=== PATIENT | female | born 1950 | race Caucasian/White ===

== ENCOUNTER → 2020-05-05 11:19 | Outpatient (BNVA) | payer MEDICARE, SELFPAY | PROVIDERS: PCP Internal Medicine; Visit Provider Internal Medicine | DX: J30.9 Allergic rhinitis, unspecified (principal); J44.9 Chronic obstructive pulmonary disease, unspecified; R91.1 Solitary pulmonary nodule | CPT/HCPCS: 99202 ==

== ENCOUNTER 2020-06-20 08:57 | Outpatient (REF) | payer MEDICARE, SELFPAY ==
[2020-06-20 11:19] LABS: MANUAL DIFF FLAG NO
[2020-06-20 11:40] LABS: Basophils Percent Auto 0.4 % (0-2); Eosinophils Absolute Auto 0.2 X10*3/uL (0.0-0.4); Eosinophils Percent Auto 3.1 % (0-4); Hematocrit 36.1 % (37-47); Hemoglobin 11.6 g/dl (12.0-16.0); Imm Gran Abs Auto 0.02 X10*3/uL (0.00-0.03); Imm Gran Pct Auto 0.4 % (0.0-0.4); Lymphocytes Percent Auto 18.7 % (20-40); Mean Corpuscular HGB Conc 32.1 g/dl (31.0-35.0); Mean Corpuscular Hemoglobin 28.6 pg (27.0-33.0); Mean Corpuscular Volume 88.9 fL (80-98); Mean Platelet Volume 10.1 fL (9.4-12.3); Monocytes Absolute Auto 0.3 X10*3/uL (0.1-1.2); Monocytes Percent Auto 5.7 % (2-11); Neutrophils Absolute Auto 3.8 X10*3/uL (2.0-8.3); Neutrophils Percent Auto 71.7 % (45-73); Red Blood Count 4.06 X10*6/uL (4.20-5.50); Red Cell Distribution Width 14.5 % (11.0-16.0); White Blood Count 5.2 X10*3/uL (4.8-10.8)
[2020-06-20 11:55] LABS: Platelet Count 83 X10*3/uL (160-400)
[2020-06-20 12:24] LABS: Alanine Aminotransferase 15 U/L (0-31); Albumin Level 3.6 g/dL (3.5-5.0); Alkaline Phosphatase 87 U/L (39-117); Anion Gap 12 (12-20); Aspartate Amino Transferase 21 U/L (5-31); Bilirubin Total 0.7 mg/dL (0.0-1.0); Blood Urea Nitrogen 26 mg/dL (9-16); Calcium 8.6 mg/dL (8.4-10.2); Carbon Dioxide 26 mmol/L (22-29); Chloride 108 mmol/L (96-108); Cholesterol 180 mg/dL; Estimated Glomerular Filt Rate 55; Glucose Fasting 97 mg/dL (60-99); HDL Cholesterol 67 mg/dL; LDL Cholesterol Calculated 99 mg/dl; Potassium 4.6 mmol/L (3.3-5.1); Sodium 141 mmol/L (135-145); Total Protein 6.1 g/dL (6.5-8.0); Triglycerides 71 mg/dL
== END 2020-06-20 08:58 | disposition home or self-care (01) ==
LOC: HO.HMGCLDS 08:57
PROVIDERS: PCP Internal Medicine; Visit Provider Internal Medicine
DX: I10 Essential (primary) hypertension (principal); J44.9 Chronic obstructive pulmonary disease, unspecified; N60.99 Unspecified benign mammary dysplasia of unspecified breast; K76.6 Portal hypertension
CPT/HCPCS: 36415; 80053; 80061; 85025

== ENCOUNTER 2020-07-09 12:50 | Outpatient (REF) | payer MEDICARE, SELFPAY ==
--- NOTE | 2020-07-09 13:56 | PFT_ITS ---
Forced vital capacity and FEV1 are both moderately reduced. UBO11-81 and MVV are also moderately reduced. Post bronchodilator therapy, there is no significant change. Total lung capacity is slightly decreased. Residual volume normal. Diffusion capacity markedly decreased. Resting O2 saturation is normal. CONCLUSION: Restrictive pulmonary disorder, moderately severe. No significant obstructive airway disorder. No response to bronchodilator therapy. MD DANIA Momin/MODL / [id number]
== END 2020-07-09 12:51 | disposition home or self-care (01) ==
LOC: HO.RESP 12:50
PROVIDERS: PCP Internal Medicine; Visit Provider Internal Medicine
DX: J44.9 Chronic obstructive pulmonary disease, unspecified (principal); R91.1 Solitary pulmonary nodule
CPT/HCPCS: 94060; 94727; 94729; 99212

== ENCOUNTER 2020-11-04 07:53 | Outpatient (REF) | payer MEDICARE, SELFPAY ==
[2020-11-04 11:57] LABS: Hematocrit 34.5 % (37-47); Hemoglobin 11.3 g/dl (12.0-16.0); Mean Corpuscular HGB Conc 32.8 g/dl (31.0-35.0); Mean Corpuscular Hemoglobin 29.6 pg (27.0-33.0); Mean Corpuscular Volume 90.3 fL (80-98); Mean Platelet Volume 9.9 fL (9.4-12.3); Red Blood Count 3.82 X10*6/uL (4.20-5.50); Red Cell Distribution Width 14.6 % (11.0-16.0); White Blood Count 3.4 X10*3/uL (4.8-10.8)
[2020-11-04 12:03] LABS: Platelet Count 82 X10*3/uL (160-400)
[2020-11-04 12:18] LABS: Anion Gap 11 (12-20); Blood Urea Nitrogen 21 mg/dL (9-16); Calcium 8.5 mg/dL (8.4-10.2); Carbon Dioxide 26 mmol/L (22-29); Chloride 109 mmol/L (96-108); Cholesterol 161 mg/dL; Estimated Glomerular Filt Rate > 60; Glucose Fasting 98 mg/dL (60-99); HDL Cholesterol 60 mg/dL; LDL Cholesterol Calculated 89 mg/dl; Potassium 4.4 mmol/L (3.3-5.1); Sodium 142 mmol/L (135-145); Triglycerides 63 mg/dL
[2020-11-04 12:28] LABS: TSH reflex Free T4 3.55 uIU/mL (0.32-4.0)
== END 2020-11-04 07:54 | disposition home or self-care (01) ==
LOC: HO.HMGCLDS 07:53
PROVIDERS: PCP Internal Medicine; Visit Provider Internal Medicine
DX: I10 Essential (primary) hypertension (principal); K76.6 Portal hypertension; N60.99 Unspecified benign mammary dysplasia of unspecified breast
CPT/HCPCS: 36415; 80048; 80061; 84443; 85027

== ENCOUNTER → 2020-11-05 09:22 | Outpatient (BNVA) | payer MEDICARE, SELFPAY | PROVIDERS: PCP Internal Medicine; Visit Provider Internal Medicine | DX: J30.9 Allergic rhinitis, unspecified (principal); J98.4 Other disorders of lung; R91.1 Solitary pulmonary nodule; R05 Cough | CPT/HCPCS: 99212 ==

== ENCOUNTER 2021-02-16 16:12 | Outpatient (REF) | payer MEDICARE, SELFPAY ==
--- NOTE | ~2021-02-16 | XR_ITS ---
EXAMINATION: XR CHEST CLINICAL INFORMATION: Acute upper respiratory infection. COMPARISON: None TECHNIQUE: 2 views of the chest were obtained. FINDINGS: The lungs are fairly well-expanded without acute pneumonic process. Increased bilateral parahilar markings seen but no congestion. No pleural effusion. Heart size is normal. There is dextroscoliosis of dorsal lumbar spine. There are surgical mikal in the right axilla from previous intervention. Asymmetric breast with the right smaller than left likely from previous intervention. No gross bony abnormality. XR/XR chest 2V IMPRESSION: Dextroscoliosis dorsal spine. The lungs are clear. There are surgical mikal in the right axilla from previous intervention.
[2021-02-16 21:08] LABS: Influenza A PCR NEGATIVE (Negative); Influenza B PCR NEGATIVE (Negative); Resp Syncy Virus RNA Qual PCR NEGATIVE (Negative); SARS COV2 PCR INHOUSE NEGATIVE (Negative)
== END 2021-02-16 16:13 | disposition home or self-care (01) ==
LOC: HO.HMGCX 16:12
PROVIDERS: PCP Internal Medicine; Visit Provider Physician Assistant Medical
DX: J06.9 Acute upper respiratory infection, unspecified (principal); Z20.822 Contact with and (suspected) exposure to COVID-19
CPT/HCPCS: 0241U; 36415; 71046

== ENCOUNTER → 2021-05-11 09:08 | Outpatient (BNVA) | payer MEDICARE, SELFPAY | PROVIDERS: PCP Internal Medicine; Visit Provider Internal Medicine | DX: J30.9 Allergic rhinitis, unspecified (principal); J98.4 Other disorders of lung; R05.9 Cough, unspecified | CPT/HCPCS: 99212 ==

== ENCOUNTER 2021-06-17 08:10 | Outpatient (REF) | payer MEDICARE, SELFPAY ==
--- NOTE | ~2021-06-17 | MM_ITS ---
EXAMINATION: BONE DENSITOMETRY CLINICAL INDICATION: Osteopenia. COMPARISON: None (current study represents initial baseline exam). TECHNIQUE: Using a [employer] DXA System (software version: 13.1) manufactured by [employer], dual-energy x-ray absorptiometry was performed of the lumbar spine and left hip. The images are of good technical quality. Summary results are attached. FINDINGS: AP SPINE L1-L4: There is levocurvature lumbar spine and multilevel degenerative changes which may cause over estimation of the lumbar bone mineral density. BMD 0.917 g/cm2, Z-score -1.0, T-score -2.2, osteopenia. LEFT FEMUR, NECK: BMD 0.537 g/cm2, Z-score -2.1, T-score -3.6, osteoporosis. LEFT FEMUR, TOTAL: BMD 0.627 g/cm2, Z-score -1.8, T-score -3.0, osteoporosis. IDENTIFIED RISK FACTORS: Menopause, osteoporosis, renal, secondary osteoporosis, history of fracture (adult), family history (parent hip fracture). HISTORY OF FRACTURE: Ribs. MEDICATIONS: Multivitamin, vitamin D. MM/XR DEXA axial skeleton IMPRESSION: 1. DIAGNOSIS: Osteoporosis based on the lowest T-score value of -3.6 in the femoral neck applying World Health Organization criteria. 2. 10-YEAR FRACTURE RISK PREDICTION, FRAX: According to the guidelines, FRAX calculation should only be performed on patients in the osteopenia bone density category. Therefore, FRAX was not performed on this patient. 3. Treatment Recommendations: NOF guidelines recommend consideration for treatment in postmenopausal women and men age 50 and older presenting with the following: -A hip or vertebral (clinical or morphometric) fracture. -T-score less than or equal to -2.5 at the femoral neck or spine after appropriate evaluation to exclude secondary causes. -Low bone mass at the hip or spine and a 10-year fracture probability by FRAX of greater than or equal to 3% for hip fracture or greater than or equal to 20% for major osteoporotic fracture based on the [place] adapted WHO algorithm. 4. Other Recommendations: All treatment decisions require clinical judgment and consideration of individual patient factors, including patient preferences, comorbidities, previous drug use, risk factors not captured in the FRAX model (e.g. frailty, falls, vitamin D deficiency, increased bone turnover, interval significant decline in bone density) and possible under or overestimation of fracture risk by FRAX. Additional medical evaluation for secondary cause of low bone mineral density may be appropriate. FUTURE SCAN RECOMMENDATION: People with diagnosed cases of osteoporosis or at high risk for fracture should have regular bone mineral density tests. For patients eligible for Medicare, routine testing is allowed once every 2 years. The testing frequency can be increased to one year for patients who have rapidly progressing disease, those who are receiving or discontinuing medical therapy to restore bone mass, or have additional risk factors.
== END 2021-06-17 08:11 | disposition home or self-care (01) ==
LOC: HO.MAMMO 08:10
PROVIDERS: Visit Provider Internal Medicine
DX: Z13.820 Encounter for screening for osteoporosis (principal); M85.88 Other specified disorders of bone density and structure, other site; Z78.0 Asymptomatic menopausal state; Z79.899 Other long term (current) drug therapy
CPT/HCPCS: 77080

== ENCOUNTER 2021-10-12 09:03 | Outpatient (REF) | payer MEDICARE, SELFPAY ==
[2021-10-12 11:36] LABS: Hematocrit 36.1 % (37.0-47.0); Hemoglobin 11.8 g/dl (12.0-16.0); Mean Corpuscular HGB Conc 32.7 g/dl (31.0-35.0); Mean Corpuscular Volume 91.9 fL (80.0-98.0); Mean Platelet Volume 10.7 fL (9.4-12.3); Red Blood Count 3.93 X10*6/uL (4.20-5.50); Red Cell Distribution Width 13.6 % (11.0-16.0); White Blood Count 3.6 X10*3/uL (4.8-10.8)
[2021-10-12 11:41] LABS: Platelet Count 91 X10*3/uL (160-400)
[2021-10-12 11:52] LABS: Alanine Aminotransferase 15 U/L (0-31); Albumin Level 3.7 g/dL (3.5-5.0); Alkaline Phosphatase 93 U/L (39-117); Anion Gap 14 (12-20); Aspartate Amino Transferase 25 U/L (5-31); Blood Urea Nitrogen 16 mg/dL (9-16); Calcium 8.7 mg/dL (8.4-10.2); Carbon Dioxide 24 mmol/L (22-29); Chloride 108 mmol/L (96-108); Cholesterol 179 mg/dL; Estimated Glomerular Filt Rate 57; Glucose Fasting 101 mg/dL (60-99); HDL Cholesterol 59 mg/dL; LDL Cholesterol Calculated 107 mg/dl; Potassium 4.5 mmol/L (3.3-5.1); Sodium 141 mmol/L (135-145); Total Protein 6.3 g/dL (6.5-8.0); Triglycerides 65 mg/dL
[2021-10-12 12:04] LABS: TSH reflex Free T4 2.86 uIU/mL (0.32-4.0); Vitamin D 25-OH Total 44.9 ng/mL (>30)
== END 2021-10-12 09:04 | disposition home or self-care (01) ==
LOC: HO.HMGCLDS 09:03
PROVIDERS: PCP Internal Medicine; Visit Provider Internal Medicine
DX: Z00.00 Encounter for general adult medical examination without abnormal findings (principal); J44.9 Chronic obstructive pulmonary disease, unspecified; K76.6 Portal hypertension
CPT/HCPCS: 36415; 80053; 80061; 82306; 84443; 85027

== ENCOUNTER 2021-11-18 10:23 | Outpatient (REF) | payer MEDICARE, SELFPAY ==
[2021-11-18 14:38] LABS: INTERNATIONAL NORM RATIO 1.1 (0.9-1.1); Prothrombin Time 12.2 SEC (10.0-13.1)
[2021-11-20 14:21] LABS: Alpha Fetoprotein 3.3 ng/mL
== END 2021-11-18 10:24 | disposition home or self-care (01) ==
LOC: HO.HMGCLDS 10:23
PROVIDERS: PCP Internal Medicine; Visit Provider Internal Medicine Gastroenterology
DX: K74.60 Unspecified cirrhosis of liver (principal); Z79.01 Long term (current) use of anticoagulants
CPT/HCPCS: 36415; 82105; 85610

== ENCOUNTER → 2021-12-07 11:15 | Outpatient (BNVA) | payer MEDICARE, SELFPAY | PROVIDERS: PCP Internal Medicine; Visit Provider Internal Medicine | DX: J98.4 Other disorders of lung (principal); J30.9 Allergic rhinitis, unspecified; R91.1 Solitary pulmonary nodule; R05.9 Cough, unspecified | CPT/HCPCS: 99212 ==

== ENCOUNTER → 2022-06-14 10:17 | Outpatient (BNVA) | payer MEDICARE, SELFPAY | PROVIDERS: PCP Internal Medicine; Visit Provider Internal Medicine | DX: J98.4 Other disorders of lung (principal); J30.9 Allergic rhinitis, unspecified; R05.9 Cough, unspecified | CPT/HCPCS: 99212 ==

== ENCOUNTER 2022-10-12 07:44 | Outpatient (REF) | payer MEDICARE, SELFPAY ==
[2022-10-12 11:22] LABS: MANUAL DIFF FLAG NO
[2022-10-12 11:32] LABS: Eosinophils Absolute Auto 0.1 X10*3/uL (0.0-0.4); Eosinophils Percent Auto 4.1 % (0-4); Hemoglobin 11.3 g/dl (12.0-16.0); Lymphocytes Absolute Auto 0.7 X10*3/uL (1.2-4.9); Lymphocytes Percent Auto 20.4 % (20-40); Mean Corpuscular HGB Conc 33.2 g/dl (31.0-35.0); Mean Corpuscular Hemoglobin 30.5 pg (27.0-33.0); Mean Corpuscular Volume 91.9 fL (80.0-98.0); Mean Platelet Volume 10.3 fL (9.4-12.3); Monocytes Absolute Auto 0.2 X10*3/uL (0.1-1.2); Monocytes Percent Auto 5.6 % (2-11); Neutrophils Absolute Auto 2.2 x10*3/uL (2.0-8.3); Neutrophils Percent Auto 69.9 % (45-73); Red Cell Distribution Width 13.8 % (11.0-16.0); White Blood Count 3.2 X10*3/uL (4.8-10.8)
[2022-10-12 11:41] LABS: Platelet Count 84 X10*3/uL (160-400)
[2022-10-12 12:33] LABS: Alanine Aminotransferase 16 U/L (0-31); Albumin Level 3.3 g/dL (3.5-5.0); Alkaline Phosphatase 96 U/L (39-117); Anion Gap 13 (12-20); Aspartate Amino Transferase 26 U/L (5-31); Bilirubin Total 0.6 mg/dL (0.0-1.0); Blood Urea Nitrogen 17 mg/dL (9-16); Calcium 8.8 mg/dL (8.4-10.2); Carbon Dioxide 24 mmol/L (22-29); Chloride 107 mmol/L (96-108); Cholesterol 139 mg/dL; Estimated Glomerular Filt Rate > 60; Glucose Fasting 105 mg/dL (60-99); HDL Cholesterol 50 mg/dL; LDL Cholesterol Calculated 80 mg/dl; Potassium 4.1 mmol/L (3.3-5.1); Sodium 140 mmol/L (135-145); TSH reflex Free T4 3.91 uIU/mL (0.32-4.0); Total Protein 6.3 g/dL (6.5-8.0); Triglycerides 48 mg/dL; Vitamin D 25-OH Total 37.8 ng/mL (>30)
== END 2022-10-12 07:45 | disposition home or self-care (01) ==
LOC: HO.HMGCLDS 07:44
PROVIDERS: PCP Internal Medicine; Visit Provider Internal Medicine
DX: I10 Essential (primary) hypertension (principal); J44.9 Chronic obstructive pulmonary disease, unspecified; M81.0 Age-related osteoporosis without current pathological fracture; E55.9 Vitamin D deficiency, unspecified
CPT/HCPCS: 36415; 80053; 80061; 82306; 84443; 85025

== ENCOUNTER 2022-11-04 12:17 | Outpatient (AMB) | payer MEDICARE, SELFPAY ==
[2022-11-04 12:40] VITALS: BP 130/80; PULSE 67; O2SAT 96; BMI 33.6
--- NOTE | 2022-11-04 12:40 | MHC.PC.OV ---
Vital Signs 11/04/22 12:40 Height 5 ft Weight 172 lb BMI 33.6 BP 130/80 Blood Pressure Location Lt brachial Position Sitting Pulse 67 Pulse Source Pulse Oximeter Pulse Oximetry (%) 96 Oxygen Delivery Method Room Air Intake Visit Reasons: 6 month follow up ( meds ) Intake Note: Pt is here today for 6 months follow up visit. Allergies cefotetan Allergy (Unknown, Verified 11/04/22 12:47) unknown cefuroxime [From Ceftin] Allergy (Unknown, Verified 11/04/22 12:47) Unknown ciprofloxacin [Cipro] Allergy (Unknown, Verified 11/04/22 12:47) unknown latex Allergy (Unknown, Verified 11/04/22 12:47) Unknown moxifloxacin [From Avelox] Allergy (Unknown, Verified 11/04/22 12:47) Unknown prochlorperazine [From Compazine] Allergy (Unknown, Verified 11/04/22 12:47) Unknown alendronate sodium Adverse Reaction (Intermediate, Verified 11/04/22 13:23) Stomach Upset Medication List - Last Reconciled 11/04/22 by Jeanne Killian MD albuterol sulfate 90 mcg/actuation (ProAir HFA) 2 puffs inhalation Q6H PRN 30 days denosumab (Prolia) 60 mg subcut [id number] fluticasone propionate 110 mcg/actuation (Flovent HFA) 1 puff inhalation BID furosemide 20 mg PO DAILY lisinopril 30 mg PO DAILY nystatin 10 mL PO Q6H 7 days omeprazole 40 mg (2 x 20 mg) PO DAILY propranolol 20 mg PO BID sertraline 50 mg PO DAILY Tobacco use date assessed: 11/04/22 Fall risk assessment: No Falls in past year Last assessed Fall Risk: 11/04/22 Dental Screening Dental Screen Date: 11/04/22 Did you have a dental visit in the last 12 months?: Yes Did you have a dental problem in the last 6 months where you did not have access to dental care?: No Was dental information given to patient?: Patient has dentist HPI 6 month follow up ( meds ) HPI Details Patient presents for the follow-up on hypertension, portal hypertension, chronic asthma and osteoporosis. Patient reports having episodes of increased wheezing and coughing for the last few months on and off. She has been using albuterol more than twice a day and Flovent twice a day. Patient could not afford the co-pay for Prolia injection. She took Fosamax for over 5 years but stopped it at least 5 years ago. She reports having episodes of stomach upset while taking Fosamax. She follows up with Urology for bladder CA in remission [facility] Medical History (Updated 11/04/22 @ 13:21 by Jeanne Killian MD) Allergic rhinitis Annual physical exam Aortic valve sclerosis Atypical ductal hyperplasia of breast Bladder carcinoma Breast CA COPD (chronic obstructive pulmonary disease) Cough Depression Essential hypertension Osteoporosis Pneumonia Portal hypertension Pulmonary nodule Restrictive lung disease Thrombocytopenia Surgical History H/O colonoscopy History of esophagogastroduodenoscopy (EGD) History of inguinal hernia repair History of surgery Hx of cholecystectomy Family History Father No problems noted. Mother Colon cancer Sister Breast cancer Social History Housing: House Alcohol intake: current Alcohol intake frequency: holidays/special occasions only Patient Tobacco Use Status: Never used Tobacco e-Cigarette/Vaping Use: Never Used Current occupational status: retired Cognitive needs: No Hearing needs: No Vision needs: Yes Questionnaire Thrive Questionnaire Date Thrive assessed: 04/19/22 AUDIT C Alcohol Use Questionnaire (AUDIT-C) 1. How often do you have a drink containing alcohol?: Never 3. How often do you have six or more drinks on one occasion?: Never Total Score: 0 ELENA-7 AMB Questionnaire ELENA-7 Date ELENA - 7 assessed: 04/19/22 Source: Developed by Drs. Alber Mcelroy, Rula Pantoja, Ranulfo Kirkpatrick and colleagues, with an educational laly from [employer] Review of Systems Const All systems reviewed & are unremarkable except as noted in HPI and below Reports no additional complaints Eyes Reports no additional complaints ENT Reports no additional complaints Card Reports no additional complaints Resp Reports no additional complaints GI Reports no additional complaints Reports no additional complaints Physical exam (Primary Care) Vital Signs: Last Vital Signs Pulse 67 11/04/22 12:40 BP 130/80 11/04/22 12:40 Pulse Ox 96 11/04/22 12:40 Oxygen Delivery Method Room Air 11/04/22 12:40 BMI result Body Mass Index 33.6 Tobacco/Smoking Status: Tobacco use Status Tobacco use date assessed 11/04/22 11/04/22 12:49 Patient Tobacco Use Status Never used Tobacco 11/04/22 12:49 e-Cigarette/Vaping Use Never Used 11/04/22 12:41 Thrive Assessment: Date of Thrive Assessment Date Thrive assessed 04/19/22 11/04/22 12:41 Const General: no acute distress HENMT Head: Yes normal to inspection Throat: Yes posterior oropharynx normal Neck Neck: Yes no lymphadenopathy and Yes supple Resp Effort & Inspection: normal respiratory effort Auscultation: crackles (bases) and diminished lung sounds Cardio Rhythm: regular rhythm Heart sounds: S1 normal heart sound present and S2 normal heart sound present GI Inspection: Yes normal to inspection Palpation (GI): Soft to palpation Percussion: Yes normal to percussion Auscultation: normal bowel sounds Assessment and Plan Assessment & Plan (1) Osteoporosis: Comment: DEXA 07/03, T SCORE -3.8 hip, took Fosamax for 5 years but stopped > 5 years, Fosamax caused stomach upset , Prolia not covered by the insurance Code(s): M81.0 - Age-related osteoporosis without current pathological fracture Plan: Reclast infusion is ordered for 2 years and then repeat DEXA (2) Portal hypertension: Code(s): K76.6 - Portal hypertension Plan: Continue current medications follow-up with GI (3) Essential hypertension: Code(s): I10 - Essential (primary) hypertension Plan: Continue current medications (4) Asthma: Comment: Not controlled on Flovent, changed to Symbicort 160 2 puffs twice a day 11/04/22 Code(s): J45.909 - Unspecified asthma, uncomplicated Plan: Change to Symbicort 160 2 puffs twice a day and use albuterol as needed Orders: Referrals Rheumatology Referral M81.0 - Age-related osteoporosis without current pathological fracture Medications: New zoledronic mwcl-argywdow-jmxih 5 mg/100 mL (Reclast) 1 ea IV ONCE 100 mL 0RF budesonide-formoterol 160-4.5 mcg/actuation (Symbicort) 2 puffs inhalation BID 30.6 grams 3RF Coding Level of Care Code Est Pt Level 4 (59385) Diagnoses Osteoporosis M81.0 Portal hypertension K76.6 Essential hypertension I10 Asthma J45.909
== END 2022-11-04 13:23 | disposition home or self-care (01) ==
PROVIDERS: PCP Internal Medicine; Visit Provider Internal Medicine
DX: M81.0 Age-related osteoporosis without current pathological fracture (principal); K76.6 Portal hypertension; I10 Essential (primary) hypertension; J45.909 Unspecified asthma, uncomplicated
CPT/HCPCS: 99214

== ENCOUNTER 2022-11-04 13:15 | Outpatient (REF) | payer MEDICARE, SELFPAY ==
[2022-11-04 16:11] LABS: INTERNATIONAL NORM RATIO 1.1 (0.9-1.1); Prothrombin Time 12.8 SEC (11.1-13.3)
== END 2022-11-04 13:16 | disposition home or self-care (01) ==
LOC: HO.HMGCLDS 13:15
PROVIDERS: PCP Internal Medicine; Visit Provider Internal Medicine Gastroenterology
DX: K74.60 Unspecified cirrhosis of liver (principal)
CPT/HCPCS: 36415; 85610

== ENCOUNTER 2022-11-16 15:46 | Outpatient (AMB) | payer MEDICARE, SELFPAY ==
[2022-11-16 15:58] VITALS: BP 140/72; PULSE 72; O2SAT 95; BMI 33.2
--- NOTE | 2022-11-16 15:58 | A.OFFVIS_ITS ---
Intake Vital Signs 11/16/22 15:58 11/16/22 16:10 Height 5 ft Weight 170 lb BMI 33.2 33.2 BP 140/72 H Blood Pressure Location Lt brachial Position Sitting Pulse 72 Pulse Source Pulse Oximeter Pulse Oximetry (%) 95 Oxygen Delivery Method Room Air Intake Visit Reasons: COPD Intake Note: pt is here for follow up and states she does get short of breath with some walking, she also stated she had a bad cold, that went away and came back again, her pcp heard wheezing. 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: No Allergies cefotetan Allergy (Unknown, Verified 11/16/22 16:07) unknown cefuroxime [From Ceftin] Allergy (Unknown, Verified 11/16/22 16:07) Unknown ciprofloxacin [Cipro] Allergy (Unknown, Verified 11/16/22 16:07) unknown latex Allergy (Unknown, Verified 11/16/22 16:07) Unknown moxifloxacin [From Avelox] Allergy (Unknown, Verified 11/16/22 16:07) Unknown prochlorperazine [From Compazine] Allergy (Unknown, Verified 11/16/22 16:07) Unknown alendronate sodium Adverse Reaction (Intermediate, Verified 11/16/22 16:07) Stomach Upset Medication List - Last Reconciled 11/16/22 by Dinorah Stewart MD albuterol sulfate 90 mcg/actuation (ProAir HFA) 2 puffs inhalation Q6H PRN 30 days fluticasone propionate 110 mcg/actuation (Flovent HFA) 1 puff inhalation BID furosemide 20 mg PO DAILY lisinopril 30 mg PO DAILY omeprazole 40 mg (2 x 20 mg) PO DAILY propranolol 20 mg PO BID sertraline 50 mg PO DAILY zoledronic ylhv-zcfsonmm-nogup 5 mg/100 mL (Reclast) 1 ea IV ONCE PFSH Medical History Allergic rhinitis Annual physical exam Aortic valve sclerosis Atypical ductal hyperplasia of breast Bladder carcinoma Breast CA COPD (chronic obstructive pulmonary disease) Cough Depression Essential hypertension Osteoporosis Pneumonia Portal hypertension Pulmonary nodule Restrictive lung disease Thrombocytopenia Surgical History H/O colonoscopy History of esophagogastroduodenoscopy (EGD) History of inguinal hernia repair History of surgery Hx of cholecystectomy Family History Father No problems noted. Mother Colon cancer Sister Breast cancer Social History Housing: House Alcohol intake: current Alcohol intake frequency: holidays/special occasions only Patient Tobacco Use Status: Never used Tobacco e-Cigarette/Vaping Use: Never Used Current occupational status: retired Cognitive needs: No Hearing needs: No Vision needs: Yes Physical Exam Vital Signs: Last Vital Signs Pulse 72 11/16/22 15:58 BP 140/72 H 11/16/22 15:58 Pulse Ox 95 11/16/22 15:58 Oxygen Delivery Method Room Air 11/16/22 15:58 BMI result Body Mass Index 33.2 Assessment & Plan Assessment & Plan Medications: New budesonide-formoterol 160-4.5 mcg/actuation (Symbicort) 2 puffs inhalation Q12H 30 days 10.2 grams 3RF asthma/copd Coding Level of Care Code Est Pt Level 3 (82832) Diagnoses
--- NOTE | 2022-11-16 16:07 | MHC.OFFVIS ---
Intake Vital Signs 11/16/22 15:58 11/16/22 16:10 Height 5 ft Weight 170 lb BMI 33.2 33.2 BP 140/72 H Blood Pressure Location Lt brachial Position Sitting Pulse 72 Pulse Source Pulse Oximeter Pulse Oximetry (%) 95 Oxygen Delivery Method Room Air Intake Visit Reasons: COPD Allergies cefotetan Allergy (Unknown, Verified 11/16/22 16:07) unknown cefuroxime [From Ceftin] Allergy (Unknown, Verified 11/16/22 16:07) Unknown ciprofloxacin [Cipro] Allergy (Unknown, Verified 11/16/22 16:07) unknown latex Allergy (Unknown, Verified 11/16/22 16:07) Unknown moxifloxacin [From Avelox] Allergy (Unknown, Verified 11/16/22 16:07) Unknown prochlorperazine [From Compazine] Allergy (Unknown, Verified 11/16/22 16:07) Unknown alendronate sodium Adverse Reaction (Intermediate, Verified 11/16/22 16:07) Stomach Upset Medication List - Last Reconciled 11/16/22 by Dinorah Stewart MD albuterol sulfate 90 mcg/actuation (ProAir HFA) 2 puffs inhalation Q6H PRN 30 days fluticasone propionate 110 mcg/actuation (Flovent HFA) 1 puff inhalation BID furosemide 20 mg PO DAILY lisinopril 30 mg PO DAILY omeprazole 40 mg (2 x 20 mg) PO DAILY propranolol 20 mg PO BID sertraline 50 mg PO DAILY zoledronic qqvo-ldiqgedz-mhbui 5 mg/100 mL (Reclast) 1 ea IV ONCE Do you need a note to return to daycare/school/sports/work: No HPI COPD HPI Details 72 YEARS OLD VERY PLEASANT FEMALE IS HERE AFTER 6 MONTHS FOR FOLLOW-UP VISIT. SHE WAS DOING FAIRLY WELL BUT SINCE ABOUT 4 WEEKS AGO WHEN SHE HAD A BOUT OF COMMON COLD , SHE IS HAVING INCREASED COUGH AND WHEEZING AND BECOMES SHORT OF BREATH ON MINIMAL WALKING. SHE HAS HAD NO FEVER CHILLS OR CHEST PAIN. NO INCREASE IN MUCUS EXPECTORATION. HER CURRENT RESPIRATORY MED INCLUDES FLOVENT-1102 PUFFS B.I.D. AND ALBUTEROL ONLY P.R.N.. LATELY SHE IS USING ALBUTEROL 2 TO 3 TIMES A DAY. SHE ALSO GETS SHORT OF BREATH ON WALKING MORE EASILY. [facility] Medical History Allergic rhinitis Annual physical exam Aortic valve sclerosis Atypical ductal hyperplasia of breast Bladder carcinoma Breast CA COPD (chronic obstructive pulmonary disease) Cough Depression Essential hypertension Osteoporosis Pneumonia Portal hypertension Pulmonary nodule Restrictive lung disease Thrombocytopenia Surgical History H/O colonoscopy History of esophagogastroduodenoscopy (EGD) History of inguinal hernia repair History of surgery Hx of cholecystectomy Family History Father No problems noted. Mother Colon cancer Sister Breast cancer Social History Housing: House Alcohol intake: current Alcohol intake frequency: holidays/special occasions only Patient Tobacco Use Status: Never used Tobacco e-Cigarette/Vaping Use: Never Used Current occupational status: retired Cognitive needs: No Hearing needs: No Vision needs: Yes Review of Systems Const All systems reviewed & are unremarkable except as noted in HPI and below Eyes Reports no additional complaints ENT Reports nasal congestion (Mild intermittent) Card Denies chest pain, Denies irregular heart rhythm and Denies leg edema Resp Reports as per HPI GI Reports heartburn (Controlled with omeprazole) Reports no additional complaints Musc Reports no additional complaints Skin/Breast Reports system reviewed and no additional complaints, except as documented Neuro Reports no additional complaints Psych Reports depression (Mild well controlled) Endo Reports no additional complaints Physical Exam Vital Signs: Last Vital Signs Pulse 72 11/16/22 15:58 BP 140/72 H 11/16/22 15:58 Pulse Ox 95 11/16/22 15:58 Oxygen Delivery Method Room Air 11/16/22 15:58 BMI result Body Mass Index 33.2 Const General: comfortable, no acute distress, alert and awake Orientation/consciousness: patient oriented x3 HEENT Head: Yes normal to inspection General nose exam: No nasal polyps present, No nasal discharge present and Other nasal findings present (No nasal congestion is noted) Face and sinus: Yes sinuses nontender Mouth: oropharynx normal Throat: Yes posterior oropharynx normal Eyes General: appearance normal, both eyes and all related structures Neck Neck: Yes normal visual inspection, Yes no lymphadenopathy, Yes trachea midline and Yes no JVD Thyroid: Thyroid normal Chest Chest palpation & inspection: normal inspection of the chest, normal palpation of entire chest wall and no tenderness Resp Other: Percussion note is resonant, she has good breath sounds on both sides, slightly prolonged expiratory phase. No audible wheezes rhonchi or crepitations. But does get cough when she is trying to take deep breath. Cardio Palpation: normal PMI Rate: regular rate Rhythm: regular rhythm Heart sounds: no gallops and no murmurs Peripheral pulses: Peripheral pulses 2+ throughout GI Palpation (GI): Soft to palpation, nontender, No hepatosplenomegaly present and no masses Auscultation: normal bowel sounds Back/Spine/Pelvis Thoracic/Lumbar Spine: thoracic and lumbar spine normal to inspection Skin General skin exam: no rashes or lesions noted Neuro General: patient oriented x3 and no focal motor deficits Cranial nerves: Yes CN's II-XII intact bilaterally Extrem General: Yes normal to inspection, Yes no clubbing, cyanosis or edema and Yes no calf tenderness Psych Appearance: grossly normal and well kempt Speech and movement: Normal speech and movement present Assessment & Plan Assessment & Plan (1) Allergic rhinitis: Comment: VERY MILD, INTERMITTENT. TX:USE FLONASE TWO SPRAY EACH NOSTRIL ONLY NEEDED OKAY TO USE ZYRTEC OR CLARITIN 10 MG HALF OR 1 TABLET DAILY. Code(s): J30.9 - Allergic rhinitis, unspecified (2) COPD (chronic obstructive pulmonary disease): Comment: She does have mild to moderate ASTHMA/ COPD . Currently seem to have increased symptoms after an upper respiratory infection 3-4 weeks ago. Flovent not controlling the symptoms. TX : DC Flovent Symbicort 160-4.5 2 puffs b.i.d. Albuterol HFA 2 puffs Q 4-6 hours p.r.n. for cough or wheezing. Code(s): J44.9 - Chronic obstructive pulmonary disease, unspecified (3) Restrictive lung disease: Comment: PATIENT WAS EXPLAINED THAT SHE HAS RESTRICTIVE DISORDER, WHICH MAY BE DUE TO BEING OVERWEIGHT, or MILD DEGREE OF INTERSTITIAL LUNG DISEASE. TX: NO TREATMENT NEEDED. BUT SHE SHOULD DO DEEP BREATHING EXERCISES TWICE A DAY DAILY Code(s): J98.4 - Other disorders of lung Medications: New budesonide-formoterol 160-4.5 mcg/actuation (Symbicort) 2 puffs inhalation Q12H 30 days 10.2 grams 3RF asthma/copd Quality Reporting (2019) Adult ([facility] 138//) Body Mass Index: 33.2 Coding Level of Care Code Est Pt Level 3 (07359) Diagnoses Allergic rhinitis J30.9 COPD (chronic obstructive pulmonary disease) J44.9 Restrictive lung disease J98.4
[2022-11-16 16:10] VITALS: BMI 33.2
== END 2022-11-16 16:17 | disposition home or self-care (01) ==
PROVIDERS: PCP Internal Medicine; Visit Provider Internal Medicine
DX: J30.9 Allergic rhinitis, unspecified (principal); J44.9 Chronic obstructive pulmonary disease, unspecified; J98.4 Other disorders of lung
CPT/HCPCS: 99213

== ENCOUNTER → 2022-11-16 15:46 | Outpatient (BNVA) | payer MEDICARE, SELFPAY | PROVIDERS: PCP Internal Medicine; Visit Provider Internal Medicine | DX: J44.9 Chronic obstructive pulmonary disease, unspecified (principal); J30.9 Allergic rhinitis, unspecified; J98.4 Other disorders of lung | CPT/HCPCS: 99212 ==

== ENCOUNTER 2022-12-13 10:14 | Outpatient (AMB) | payer MEDICARE, SELFPAY ==
[2022-12-13 10:36] VITALS: BP 124/80; PULSE 64; O2SAT 96; BMI 33.0
--- NOTE | 2022-12-13 10:36 | MHC.OFFVIS ---
Intake Vital Signs 12/13/22 10:36 Height 5 ft Weight 169 lb BMI 33.0 BP 124/80 Blood Pressure Location Lt brachial Position Sitting Pulse 64 Pulse Source Pulse Oximeter Pulse Oximetry (%) 96 Oxygen Delivery Method Room Air Intake Visit Reasons: Bronchitis Intake Note: pt is here for follow up, just got over covid, still thinks something is going on, some coughing, but coughed all night, Associate Product Manager Required: No Allergies cefotetan Allergy (Unknown, Verified 12/13/22 10:53) unknown cefuroxime [From Ceftin] Allergy (Unknown, Verified 12/13/22 10:53) Unknown ciprofloxacin [Cipro] Allergy (Unknown, Verified 12/13/22 10:53) unknown latex Allergy (Unknown, Verified 12/13/22 10:53) Unknown moxifloxacin [From Avelox] Allergy (Unknown, Verified 12/13/22 10:53) Unknown prochlorperazine [From Compazine] Allergy (Unknown, Verified 12/13/22 10:53) Unknown alendronate sodium Adverse Reaction (Intermediate, Verified 12/13/22 10:53) Stomach Upset Medication List - Last Reconciled 12/13/22 by Dinorah Stewart MD budesonide-formoterol 160-4.5 mcg/actuation (Symbicort) 2 puffs inhalation Q12H 30 days furosemide 20 mg PO DAILY lisinopril 30 mg PO DAILY omeprazole 40 mg (2 x 20 mg) PO DAILY propranolol 20 mg PO BID sertraline 50 mg PO DAILY zoledronic [id number]-[id number]-qmttg 5 mg/100 mL (Reclast) 1 ea IV ONCE Do you need a note to return to daycare/school/sports/work: No HPI Bronchitis HPI Details BONNIE IS HERE FOR FOLLOW-UP. SHE CONTINUED USING FLUTICASONE, AND NOW JUST GOT SYMBICORT , WHICH SHE HAS NOT STARTED USING YET. SHE WAS DOING OKAY BUT DURING LAST WEEK, SUFFERED FROM UPPER RESPIRATORY INFECTION AND TESTED POSITIVE FOR COLD. LUCKILY SHE RECOVERED OKAY, BUT STILL HAS SOME COLD SORES IN THE NOSTRILS, AND MINIMAL DEGREE OF SORE THROAT. COUGHS OFF AND ON AND TENDS TO BRING UP GREENISH PHLEGM IN THE MORNING. SHE HAS NO FEVER OR CHILLS. STILL FEELS WEAK AND APPETITE IS STARTING TO IMPROVE. [facility] Medical History (Updated 12/13/22 @ 11:02 by Dinorah Stewart MD) COVID-19 Osteoporosis Cough Annual physical exam Restrictive lung disease Pulmonary nodule Allergic rhinitis Atypical ductal hyperplasia of breast Pneumonia COPD (chronic obstructive pulmonary disease) Thrombocytopenia Aortic valve sclerosis Breast CA Depression Bladder carcinoma Essential hypertension Portal hypertension Surgical History H/O colonoscopy History of esophagogastroduodenoscopy (EGD) History of surgery History of inguinal hernia repair Hx of cholecystectomy Family History Father No problems noted. Mother Colon cancer Sister Breast cancer Social History Housing: House Alcohol intake: current Alcohol intake frequency: holidays/special occasions only Patient Tobacco Use Status: Never used Tobacco e-Cigarette/Vaping Use: Never Used Current occupational status: retired Cognitive needs: No Hearing needs: No Vision needs: Yes Review of Systems Const All systems reviewed & are unremarkable except as noted in HPI and below Eyes Reports no additional complaints ENT Reports nasal congestion (Mild intermittent) Card Denies chest pain, Denies irregular heart rhythm and Denies leg edema Resp Reports as per HPI GI Reports heartburn (Controlled with omeprazole) Reports no additional complaints Musc Reports no additional complaints Skin/Breast Reports system reviewed and no additional complaints, except as documented Neuro Reports no additional complaints Psych Reports depression (Mild well controlled) Endo Reports no additional complaints Physical Exam Vital Signs: Last Vital Signs Pulse 64 12/13/22 10:36 BP 124/80 12/13/22 10:36 Pulse Ox 96 12/13/22 10:36 Oxygen Delivery Method Room Air 12/13/22 10:36 BMI result Body Mass Index 33.0 Const General: comfortable, no acute distress, alert and awake Orientation/consciousness: patient oriented x3 HEENT Head: Yes normal to inspection General nose exam: No nasal polyps present, No nasal discharge present and Other nasal findings present (HAS MILD NASAL CONGESTION, ALSO HAS A FEW SUPERFICIAL ULCERATED AREAS ) Face and sinus: Yes sinuses nontender Mouth: oropharynx normal Throat: Yes posterior oropharynx normal Eyes General: appearance normal, both eyes and all related structures Neck Neck: Yes normal visual inspection, Yes no lymphadenopathy, Yes trachea midline and Yes no JVD Thyroid: Thyroid normal Chest Chest palpation & inspection: normal inspection of the chest, normal palpation of entire chest wall and no tenderness Resp Other: Percussion note is resonant, she has good breath sounds on both sides, slightly prolonged expiratory phase. No audible wheezes rhonchi or crepitations. Cardio Palpation: normal PMI Rate: regular rate Rhythm: regular rhythm Heart sounds: no gallops and no murmurs Peripheral pulses: Peripheral pulses 2+ throughout GI Palpation (GI): Soft to palpation, nontender, No hepatosplenomegaly present and no masses Auscultation: normal bowel sounds Back/Spine/Pelvis Thoracic/Lumbar Spine: thoracic and lumbar spine normal to inspection Skin General skin exam: no rashes or lesions noted Neuro General: patient oriented x3 and no focal motor deficits Cranial nerves: Yes CN's II-XII intact bilaterally Extrem General: Yes normal to inspection, Yes no clubbing, cyanosis or edema and Yes no calf tenderness Psych Appearance: grossly normal and well kempt Speech and movement: Normal speech and movement present Assessment & Plan Assessment & Plan (1) COVID-19: Comment: LAST WEEK HAD SYMPTOMS OF UPPER RESPIRATORY INFECTION, COVID TEST DONE AT HOME WAS POSITIVE. SHE HAS RECOVERED EXCEPT FOR MILD RESIDUAL NASAL CONGESTION. ADVISED TO KEEP ON USING STEAM INHALATION 3 TIMES A DAY. Code(s): U07.1 - COVID-19 (2) Asthma: Comment: SHE HAS BEEN USING FLOVENT IN THE PAST. WAS PRESCRIBED THE SYMBICORT 160-4.5 2 PUFFS B.I.D., WHICH SHE HAS ACTUALLY GOTTEN JUST A FEW DAYS AGO. TOLD HER NOT TO USE FLOVENT WHILE SHE IS USING SYMBICORT . AND USE PROAIR 2 PUFFS Q 4-6 HOURS ONLY P.R.N.. Code(s): J45.909 - Unspecified asthma, uncomplicated (3) Restrictive lung disease: Comment: PATIENT WAS EXPLAINED THAT SHE HAS RESTRICTIVE DISORDER, WHICH MAY BE DUE TO BEING OVERWEIGHT, or MILD DEGREE OF INTERSTITIAL LUNG DISEASE. TX: NO TREATMENT NEEDED. BUT SHE SHOULD DO DEEP BREATHING EXERCISES TWICE A DAY DAILY Code(s): J98.4 - Other disorders of lung (4) Pulmonary nodule: Comment: IT WAS ACTUALLY A NONSPECIFIC GROUND-GLASS DENSITY IN THE RIGHT UPPER LOBE., FOR WHICH SHE NEEDS F U CT SCAN . SHE SAYS SHE HAS APPOINTMENT TO TO BE SEEN AT [facility], BEFORE THE END OF THE YEAR. AND SHE MAY HAVE REPEAT CT SCAN AT [facility], AND I WILL REVIEW THAT REPORT. Code(s): R91.1 - Solitary pulmonary nodule (5) Allergic rhinitis: Comment: VERY MILD, INTERMITTENT. TX:USE FLONASE TWO SPRAY EACH NOSTRIL ONLY NEEDED OKAY TO USE ZYRTEC OR CLARITIN 10 MG HALF OR 1 TABLET DAILY. Code(s): J30.9 - Allergic rhinitis, unspecified Coding Level of Care Code Est Pt Level 3 (57159) Diagnoses COVID-19 U07.1 Asthma J45.909 Restrictive lung disease J98.4 Pulmonary nodule R91.1 Allergic rhinitis J30.9
== END 2022-12-13 10:55 | disposition home or self-care (01) ==
PROVIDERS: PCP Internal Medicine; Visit Provider Internal Medicine
DX: U07.1 COVID-19 (principal); J45.909 Unspecified asthma, uncomplicated; J98.4 Other disorders of lung; R91.1 Solitary pulmonary nodule; J30.9 Allergic rhinitis, unspecified
CPT/HCPCS: 99213

== ENCOUNTER 2022-12-13 10:14 | Outpatient (REF) | payer MEDICARE, SELFPAY ==
[2022-12-13 12:52] LABS: Blood Urea Nitrogen 13 mg/dL (9-16); Estimated Glomerular Filt Rate > 60
== END 2022-12-13 10:15 | disposition home or self-care (01) ==
LOC: HO.LAB 10:14
PROVIDERS: PCP Internal Medicine; Visit Provider Internal Medicine
DX: I10 Essential (primary) hypertension (principal); U07.1 COVID-19; J45.909 Unspecified asthma, uncomplicated; J98.4 Other disorders of lung; R91.1 Solitary pulmonary nodule
CPT/HCPCS: 36415; 82565; 84520; 99212

== ENCOUNTER 2022-12-17 08:18 | Outpatient (REF) | payer MEDICARE, SELFPAY | END 2022-12-17 08:19 | disposition home or self-care (01) | LOC: HO.MDS 08:18 | PROVIDERS: Visit Provider Internal Medicine | DX: M81.0 Age-related osteoporosis without current pathological fracture (principal) | CPT/HCPCS: 96374; J3489 ==

== ENCOUNTER 2023-02-16 12:07 | Outpatient (AMB) | payer MEDICARE, SELFPAY ==
--- NOTE | 2023-02-16 12:08 | AM.OFFWIN_ITS ---
Intake Vital Signs 02/16/23 12:09 Height 5 ft Weight 75.75 kg BMI 32.6 BP 124/70 Blood Pressure Location Rt brachial Position Sitting Pulse 69 Pulse Source Pulse Oximeter Temp 97.5 F Temp Source Temporal Artery Scan Pulse Oximetry (%) 97 Oxygen Delivery Method Room Air Intake Visit Reasons: EP, cough (masked) Intake Note: pt is here today for cough started had covid in november Patient Tobacco Use Status: Never used Tobacco Allergies cefotetan Allergy (Unknown, Verified 02/16/23 12:09) unknown cefuroxime [From Ceftin] Allergy (Unknown, Verified 02/16/23 12:09) Unknown ciprofloxacin [Cipro] Allergy (Unknown, Verified 02/16/23 12:09) unknown latex Allergy (Unknown, Verified 02/16/23 12:09) Unknown moxifloxacin [From Avelox] Allergy (Unknown, Verified 02/16/23 12:09) Unknown prochlorperazine [From Compazine] Allergy (Unknown, Verified 02/16/23 12:09) Unknown alendronate sodium Adverse Reaction (Intermediate, Verified 02/16/23 12:09) Stomach Upset Do you need a note to return to daycare/school/sports/work: No HPI HPI Comments History of Present Illness Details 1223 This is a 72-year-old female history of COVID in November, COPD, hypertension, portal hypertension, allergic rhinitis, GERD, asthma presenting to the clinic for evaluation of cough that started in November after she was COVID positive and has not improved. Patient tells me this cough is uncomfortable, dry, intermittent. No associated chest pain, shortness of breath, nausea, vomiting, abdominal pain, headache, vision changes, dizziness, weakness. Patient does not wear oxygen at home. No sick contacts. Physical exam faint expiratory wheezing throughout. Concerns for chronic lung disease versus her long COVID versus bronchitis versus viral illness. Unlikely pneumonia, pulmonary embolism, ACS, dissection, acute respiratory distress plan at this time it is will discharge patient home antibiotics, prednisone, albuterol. Educated patient on diagnosis and treatment plan, answered all question, patient verbalizes understanding. At this time patient will be d ischarged home, advised to return with new or worsening symptoms. Educated on worrisome signs and symptoms and when to return. At this time I feel comfortable discharge home. [facility] Medical History COVID-19 Osteoporosis Cough Annual physical exam Restrictive lung disease Pulmonary nodule Allergic rhinitis Atypical ductal hyperplasia of breast Pneumonia COPD (chronic obstructive pulmonary disease) Thrombocytopenia Aortic valve sclerosis Breast CA Depression Bladder carcinoma Essential hypertension Portal hypertension Surgical History H/O colonoscopy History of esophagogastroduodenoscopy (EGD) History of surgery History of inguinal hernia repair Hx of cholecystectomy Family History Father No problems noted. Mother Colon cancer Sister Breast cancer Social History Housing: House Alcohol intake: current Alcohol intake frequency: holidays/special occasions only Patient Tobacco Use Status: Never used Tobacco e-Cigarette/Vaping Use: Never Used Current occupational status: retired Cognitive needs: No Hearing needs: No Vision needs: Yes Review of Systems Const Details: Constitutional : No Weight loss, No Fever, No Chills, No Fatigue, No Malaise ENT/Mouth : No sore throat, No Rhinorrhea Eyes: No Eye Pain, No Swelling, No Redness Cardiovascular : No Chest Pain, No SOB, No Dyspnea on Exertion, No Orthopnea, No Edema, No Palpitations Respiratory : + Cough, No Sputum, No Wheezing Gastrointestinal : No Nausea, No Vomiting, No Diarrhea, No Constipation, No abdominal Pain, No Hematochezia, No Melena Genitourinary : No Dysuria, No Urinary Frequency, No Hematuria, Musculoskeletal : No joint pain, No Myalgias, No Joint Swelling Skin : No Skin Lesions, No rash Neuro : No Weakness, No Numbness, No Dizziness, No Headache Psych : No Anxiety/Panic, No Depression All other systems reviewed and are negative All systems reviewed & are unremarkable except as noted in HPI and below Physical Exam Vital Signs: Last Vital Signs Temp 97.5 F 02/16/23 12:09 Pulse 69 02/16/23 12:09 BP 124/70 02/16/23 12:09 Pulse Ox 97 02/16/23 12:09 Oxygen Delivery Method Room Air 02/16/23 12:09 BMI result Body Mass Index 32.6 vss Appearance: Alert.? Oriented X3.? No acute distress.? Head: Normocephalic, atraumatic, no step-offs or deformities Eyes: Pupils equal, round and reactive to light.? CVS: Normal heart rate and rhythm.? Pulses normal.? Respiratory: No respiratory distress.? Breath sounds faint expiratory wheezing throughout. Abdomen: Soft and nontender.? Skin: Skin warm and dry.? Normal skin color.? Normal skin turgor.? Extremities: No lower extremity edema.? No calf ttp. 5/5 strength to bilateral upper and lower extremities Neuro: Oriented X 3.? No motor deficit.? No sensory deficit. 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 If you were prescribed antibiotics today, it is important that you take your medication to their entirety, do not skip any doses, do not finish them early. Follow-up with your primary care provider this week. Return to the emergency department with new or worsening symptoms. Such as fevers, chills, chest pain, shortness of breath, nausea, vomiting, dizziness, headache, vision changes, lethargy In case of emergency call 911 Medications: New prednisone 40 mg (2 x 20 mg) PO DAILY 10 tabs 0RF 5 days albuterol sulfate 90 mcg/actuation 2 puffs inhalation Q6H PRN 6.7 grams 0RF shortness of breath or wheezing doxycycline hyclate 100 mg PO BID 14 caps 0RF 7 days Coding Level of Care Code Est Pt Level 3 (25471) Diagnoses Cough R05 Long COVID U09.9
[2023-02-16 12:09] VITALS: BP 124/70; PULSE 69; TEMP 36.4; O2SAT 97; BMI 32.6
== END 2023-02-16 13:33 | disposition home or self-care (01) ==
PROVIDERS: PCP Internal Medicine; Visit Provider Physician Assistant
DX: R05.9 Cough, unspecified (principal); U09.9 Post COVID-19 condition, unspecified
CPT/HCPCS: 99213

== ENCOUNTER 2023-03-21 10:10 | Outpatient (AMB) | payer MEDICARE, SELFPAY ==
--- NOTE | 2023-03-21 10:20 | MHC.OFFVIS ---
Intake Vital Signs 03/21/23 10:21 Height 5 ft Weight 169 lb BMI 33.0 BP 140/78 H Blood Pressure Location Lt brachial Position Sitting Pulse 64 Pulse Source Pulse Oximeter Pulse Oximetry (%) 96 Oxygen Delivery Method Room Air Intake Visit Reasons: Bronchitis Intake Note: pt is here for follow up and states she has been wheezing more in morning and in the cold. only a slight shortness of breath. Allergies cefotetan Allergy (Unknown, Verified 03/21/23 10:27) unknown cefuroxime [From Ceftin] Allergy (Unknown, Verified 03/21/23 10:27) Unknown ciprofloxacin [Cipro] Allergy (Unknown, Verified 03/21/23 10:27) unknown latex Allergy (Unknown, Verified 03/21/23 10:27) Unknown moxifloxacin [From Avelox] Allergy (Unknown, Verified 03/21/23 10:27) Unknown prochlorperazine [From Compazine] Allergy (Unknown, Verified 03/21/23 10:27) Unknown alendronate sodium Adverse Reaction (Intermediate, Verified 03/21/23 10:27) Stomach Upset Medication List - Last Reconciled 03/21/23 by Dinorah Stewart MD albuterol sulfate 90 mcg/actuation 2 puffs inhalation Q6H PRN budesonide-formoterol 160-4.5 mcg/actuation (Symbicort) 2 puffs inhalation Q12H 30 days furosemide 20 mg PO DAILY lisinopril 30 mg PO DAILY omeprazole 40 mg (2 x 20 mg) PO DAILY propranolol 20 mg PO BID sertraline 50 mg PO DAILY zoledronic fvlk-ftrlpwur-czjbz 5 mg/100 mL (Reclast) 1 ea IV ONCE Do you need a note to return to daycare/school/sports/work: No HPI Bronchitis HPI Details BONNIE IS 72 YEARS OLD VERY PLEASANT FEMALE WHO IS HERE FOR FOLLOW-UP AFTER 4 MONTHS. SHE HAS BEEN USING THE GENERIC OF SYMBICORT 2 PUFFS B.I.D., AND ALSO ALBUTEROL WHICH SHE HAS TO USE ONCE IN A WHILE. SHE IS DOING WELL EXCEPT FOR HAVING SOME WHEEZING IN THE MORNING HOURS. SHE CAN WALK AROUND IN DO HER DAY-TO-DAY ACTIVITIES WITHOUT MUCH PROBLEM. SHE HAS HAD NO ACUTE RESPIRATORY INFECTION SINCE HER LAST VISIT . [facility] Medical History COVID-19 Osteoporosis Cough Annual physical exam Restrictive lung disease Pulmonary nodule Allergic rhinitis Atypical ductal hyperplasia of breast Pneumonia COPD (chronic obstructive pulmonary disease) Thrombocytopenia Aortic valve sclerosis Breast CA Depression Bladder carcinoma Essential hypertension Portal hypertension Surgical History H/O colonoscopy History of esophagogastroduodenoscopy (EGD) History of surgery History of inguinal hernia repair Hx of cholecystectomy Family History Father No problems noted. Mother Colon cancer Sister Breast cancer Social History Housing: House Alcohol intake: current Alcohol intake frequency: holidays/special occasions only Patient Tobacco Use Status: Never used Tobacco e-Cigarette/Vaping Use: Never Used Current occupational status: retired Cognitive needs: No Hearing needs: No Vision needs: Yes Review of Systems Const All systems reviewed & are unremarkable except as noted in HPI and below Eyes Reports no additional complaints ENT Reports nasal congestion (Mild intermittent) Card Denies chest pain, Denies irregular heart rhythm and Denies leg edema Resp Reports as per HPI GI Reports heartburn (Controlled with omeprazole) Reports no additional complaints Musc Reports no additional complaints Skin/Breast Reports system reviewed and no additional complaints, except as documented Neuro Reports no additional complaints Psych Reports depression (Mild well controlled) Endo Reports no additional complaints Physical Exam Vital Signs: Last Vital Signs Pulse 64 03/21/23 10:21 BP 140/78 H 03/21/23 10:21 Pulse Ox 96 03/21/23 10:21 Oxygen Delivery Method Room Air 03/21/23 10:21 BMI result Body Mass Index 33.0 Const General: comfortable, no acute distress, alert and awake Orientation/consciousness: patient oriented x3 HEENT Head: Yes normal to inspection General nose exam: No nasal polyps present, No nasal discharge present and Other nasal findings present (HAS MILD NASAL CONGESTION, ALSO HAS A FEW SUPERFICIAL ULCERATED AREAS ) Face and sinus: Yes sinuses nontender Mouth: oropharynx normal Throat: Yes posterior oropharynx normal Eyes General: appearance normal, both eyes and all related structures Neck Neck: Yes normal visual inspection, Yes no lymphadenopathy, Yes trachea midline and Yes no JVD Thyroid: Thyroid normal Chest Chest palpation & inspection: normal inspection of the chest, normal palpation of entire chest wall and no tenderness Resp Other: Percussion note is resonant, she has good breath sounds on both sides, slightly prolonged expiratory phase. No audible wheezes rhonchi or crepitations. Cardio Palpation: normal PMI Rate: regular rate Rhythm: regular rhythm Heart sounds: no gallops and no murmurs Peripheral pulses: Peripheral pulses 2+ throughout GI Palpation (GI): Soft to palpation, nontender, No hepatosplenomegaly present and no masses Auscultation: normal bowel sounds Back/Spine/Pelvis Thoracic/Lumbar Spine: thoracic and lumbar spine normal to inspection Skin General skin exam: no rashes or lesions noted Neuro General: patient oriented x3 and no focal motor deficits Cranial nerves: Yes CN's II-XII intact bilaterally Extrem General: Yes normal to inspection, Yes no clubbing, cyanosis or edema and Yes no calf tenderness Psych Appearance: grossly normal and well kempt Speech and movement: Normal speech and movement present Assessment & Plan Assessment & Plan (1) Restrictive lung disease: Comment: PATIENT WAS EXPLAINED THAT SHE HAS RESTRICTIVE DISORDER, WHICH MAY BE DUE TO BEING OVERWEIGHT, or MILD DEGREE OF INTERSTITIAL LUNG DISEASE. Code(s): J98.4 - Other disorders of lung Plan: TX: SHE SHOULD DO DEEP BREATHING EXERCISES THREE TIMES A DAY DAILY USE THE INCENTIVE SPIROMETERY (2) Pulmonary nodule: Comment: IT WAS ACTUALLY A NONSPECIFIC GROUND-GLASS DENSITY IN THE RIGHT UPPER LOBE., FOR WHICH SHE NEEDS F U CT SCAN . SHE SAYS SHE HAS APPOINTMENT TO TO BE SEEN AT [facility],NEXT WEEK. AND SHE MAY HAVE REPEAT CT SCAN AT [facility], AND I WILL REVIEW THAT REPORT. Code(s): R91.1 - Solitary pulmonary nodule Plan: ABOVE (3) Allergic rhinitis: Comment: VERY MILD, INTERMITTENT. Code(s): J30.9 - Allergic rhinitis, unspecified Plan: TX:USE FLONASE TWO SPRAY EACH NOSTRIL ONLY NEEDED OKAY TO USE ZYRTEC OR CLARITIN 10 MG HALF OR 1 TABLET DAILY. (4) COPD (chronic obstructive pulmonary disease): Comment: She does have mild to moderate ASTHMA/ COPD . It is relatively stable Code(s): J44.9 - Chronic obstructive pulmonary disease, unspecified Plan: Continue to use : Symbicort 160-4.5 2 puffs b.i.d. Albuterol HFA 2 puffs Q 4-6 hours p.r.n. for cough or wheezing. Medications: Changed From albuterol sulfate 90 mcg/actuation 2 puffs inhalation Q6H PRN 6.7 grams 0RF shortness of breath or wheezing To albuterol sulfate 90 mcg/actuation 2 puffs inhalation Q6H PRN 8.5 grams 3RF shortness of breath or wheezing 30 days Coding Level of Care Code Est Pt Level 3 (11563) Diagnoses Restrictive lung disease J98.4 Pulmonary nodule R91.1 Allergic rhinitis J30.9 COPD (chronic obstructive pulmonary disease) J44.9
[2023-03-21 10:21] VITALS: BP 140/78; PULSE 64; O2SAT 96; BMI 33.0
== END 2023-03-21 10:35 | disposition home or self-care (01) ==
PROVIDERS: PCP Internal Medicine; Visit Provider Internal Medicine
DX: J98.4 Other disorders of lung (principal); R91.1 Solitary pulmonary nodule; J30.9 Allergic rhinitis, unspecified; J44.9 Chronic obstructive pulmonary disease, unspecified
CPT/HCPCS: 99213

== ENCOUNTER → 2023-03-21 10:10 | Outpatient (BNVA) | payer MEDICARE, SELFPAY | PROVIDERS: PCP Internal Medicine; Visit Provider Internal Medicine | DX: J98.4 Other disorders of lung (principal); J44.9 Chronic obstructive pulmonary disease, unspecified; J30.9 Allergic rhinitis, unspecified; R91.1 Solitary pulmonary nodule | CPT/HCPCS: 99212 ==

== ENCOUNTER 2023-04-25 14:43 | Outpatient (AMB) | payer MEDICARE, SELFPAY ==
[2023-04-25 15:27] VITALS: BP 160/78; PULSE 63; TEMP 36.7; O2SAT 96; BMI 32.6
--- NOTE | 2023-04-25 15:27 | MHC.OFFWIV ---
Intake Vital Signs 04/25/23 15:27 Height 5 ft Weight 167 lb BMI 32.6 BP 160/78 H Blood Pressure Location Lt brachial Position Sitting Pulse 63 Temp 98.1 F Temp Source Temporal Artery Scan Pulse Oximetry (%) 96 Oxygen Delivery Method Room Air Intake Visit Reasons: EST/cough since november(lobby) Intake Note: pt is here today for cough started november Patient Tobacco Use Status: Never used Tobacco Allergies cefotetan Allergy (Unknown, Verified 04/25/23 15:29) unknown cefuroxime [From Ceftin] Allergy (Unknown, Verified 04/25/23 15:) Unknown ciprofloxacin [Cipro] Allergy (Unknown, Verified 04/25/23 15:) unknown latex Allergy (Unknown, Verified 04/25/23:) Unknown moxifloxacin [From Avelox] Allergy (Unknown, Verified 04/25/23:) Unknown prochlorperazine [From Compazine] Allergy (Unknown, Verified 04/25/23 15:) Unknown alendronate sodium Adverse Reaction (Intermediate, Verified 04/25/23 15:) Stomach Upset Do you need a note to return to daycare/school/sports/work: No HPI HPI Comments History of Present Illness Details 72-year-old female presents today complaining of intermittent cough for the last 6 months. She states that it recurs with nasal congestion sinus pain and pressure and dental pain and a maxillary sinus. She denies fever chills sweats myalgias. [facility] Medical History COVID-19 Osteoporosis Cough Annual physical exam Restrictive lung disease Pulmonary nodule Allergic rhinitis Atypical ductal hyperplasia of breast Pneumonia COPD (chronic obstructive pulmonary disease) Thrombocytopenia Aortic valve sclerosis Breast CA Depression Bladder carcinoma Essential hypertension Portal hypertension Surgical History H/O colonoscopy History of esophagogastroduodenoscopy (EGD) History of surgery History of inguinal hernia repair Hx of cholecystectomy Family History Father No problems noted. Mother Colon cancer Sister Breast cancer Social History Housing: House Alcohol intake: current Alcohol intake frequency: holidays/special occasions only Patient Tobacco Use Status: Never used Tobacco e-Cigarette/Vaping Use: Never Used Current occupational status: retired Cognitive needs: No Hearing needs: No Vision needs: Yes Review of Systems Const Reports headache(s) ENT Reports headache(s), Reports nasal congestion, Reports nasal discharge, Reports sinus pain and Reports sinus pressure Resp Reports chest congestion and Reports cough Neuro Reports headache(s) Physical Exam Vital Signs: Last Vital Signs Temp 98.1 F 04/25/23 15:27 Pulse 63 04/25/23 15:27 BP 160/78 H 04/25/23 15:27 Pulse Ox 96 04/25/23 15:27 Oxygen Delivery Method Room Air 04/25/23 15:27 BMI result Body Mass Index 32.6 HEENT Head: Yes normal to inspection, Yes normocephalic and Yes atraumatic Ears: hearing grossly normal bilaterally, external ears normal, TM's normal bilaterally, TM normal on the right, TM normal on the left and EAC's normal General nose exam: Normal external nose present and No nasal discharge present Face and sinus: Yes sinus tenderness Mouth: Normal oral and palatal mucosa present, Normal salivary glands and ducts present and oropharynx normal Throat: Yes tonsils normal Eyes General: appearance normal, both eyes and all related structures Resp Effort & Inspection: normal respiratory effort and able to speak in complete sentences Auscultation: clear to auscultation bilaterally Cardio Rate: regular rate Rhythm: regular rhythm Heart sounds: S1 normal heart sound present and S2 normal heart sound present Assessment & Plan Assessment & Plan (1) Sinusitis: Code(s): J32.9 - Chronic sinusitis, unspecified Qualifiers: Chronicity: chronic Sinusitis location: maxillary Qualified Code(s): J32.0 - Chronic maxillary sinusitis Plan: see plan Plan USe meds as prescribed. F/U with PCP as needed. Medications: New doxycycline hyclate 100 mg PO BID 7 days 14 caps 0RF albuterol sulfate 90 mcg/actuation 2 inhalations inhalation Q8H PRN 8.5 grams 0RF shortness of breath or wheezing Coding Level of Care Code Est Pt Level 3 (94949) Diagnoses Chronic maxillary sinusitis J32.0 Chronicity: chronic Sinusitis location: maxillary Time Spent (min) 20
== END 2023-04-25 16:19 | disposition home or self-care (01) ==
PROVIDERS: PCP Internal Medicine; Visit Provider Physician Assistant Medical
DX: J32.0 Chronic maxillary sinusitis (principal)
CPT/HCPCS: 99214

== ENCOUNTER 2023-06-23 11:05 | Outpatient (AMB) | payer MEDICARE, SELFPAY ==
[2023-06-23 11:10] VITALS: BP 120/76; PULSE 64; TEMP 36.6; O2SAT 96; BMI 33.2
--- NOTE | 2023-06-23 11:10 | AM.OFFWIN_ITS ---
Intake Vital Signs 06/23/23 11:10 Height 5 ft Weight 170 lb BMI 33.2 BP 120/76 Blood Pressure Location Lt brachial Position Sitting Pulse 64 Pulse Source Pulse Oximeter Temp 97.9 F Temp Source Temporal Artery Scan Pulse Oximetry (%) 96 Oxygen Delivery Method Room Air Intake Visit Reasons: EP cough, chills, ache (masked) Intake Note: pt is here today for cough chills aches started tuesday Patient Tobacco Use Status: Never used Tobacco Allergies cefotetan Allergy (Unknown, Verified 06/23/23 11:13) unknown cefuroxime [From Ceftin] Allergy (Unknown, Verified 06/23/23 11:13) Unknown ciprofloxacin [Cipro] Allergy (Unknown, Verified 06/23/23 11:13) unknown latex Allergy (Unknown, Verified 06/23/23 11:13) Unknown moxifloxacin [From Avelox] Allergy (Unknown, Verified 06/23/23 11:13) Unknown prochlorperazine [From Compazine] Allergy (Unknown, Verified 06/23/23 11:13) Unknown alendronate sodium Adverse Reaction (Intermediate, Verified 06/23/23 11:13) Stomach Upset Do you need a note to return to daycare/school/sports/work: No HPI HPI Comments History of Present Illness Details 72 y/o female patient who presents to [facility] in clinic with c/o URI symptoms that started Tuesday. [facility] Medical History COVID-19 Osteoporosis Cough Annual physical exam Restrictive lung disease Pulmonary nodule Allergic rhinitis Atypical ductal hyperplasia of breast Pneumonia COPD (chronic obstructive pulmonary disease) Thrombocytopenia Aortic valve sclerosis Breast CA Depression Bladder carcinoma Essential hypertension Portal hypertension Surgical History H/O colonoscopy History of esophagogastroduodenoscopy (EGD) History of surgery History of inguinal hernia repair Hx of cholecystectomy Family History Father No problems noted. Mother Colon cancer Sister Breast cancer Social History Housing: House Alcohol intake: current Alcohol intake frequency: holidays/special occasions only Patient Tobacco Use Status: Never used Tobacco e-Cigarette/Vaping Use: Never Used Current occupational status: retired Cognitive needs: No Hearing needs: No Vision needs: Yes Review of Systems Const All systems reviewed & are unremarkable except as noted in HPI and below Physical Exam Vital Signs: Last Vital Signs Temp 97.9 F 06/23/23 11:10 Pulse 64 06/23/23 11:10 BP 120/76 06/23/23 11:10 Pulse Ox 96 06/23/23 11:10 Oxygen Delivery Method Room Air 06/23/23 11:10 BMI result Body Mass Index 33.2 Const General: comfortable and no acute distress Orientation/consciousness: patient oriented x3 HEENT Head: Yes normocephalic Ears: external ears normal, TM normal on the right and TM abnormal bulging on the left, erythematous on the left and with fluid behind the TM on the left General nose exam: Abnormal mucous membranes and turbinates present boggy and erythematous Face and sinus: Yes sinuses nontender Mouth: moist mucous membranes Throat: Yes posterior oropharynx normal Neuro General: patient oriented x3 Assessment & Plan Assessment & Plan (1) Upper respiratory tract infection: Code(s): J06.9 - Acute upper respiratory infection, unspecified Qualifiers: URI type: unspecified viral URI Qualified Code(s): J06.9 - Acute upper respiratory infection, unspecified Plan: - OTC cold remedies - Acetaminophen for pain relief - SARs (2) Otitis media: Code(s): H66.90 - Otitis media, unspecified, unspecified ear Qualifiers: Otitis media type: unspecified Laterality: left Qualified Code(s): H66.92 - Otitis media, unspecified, left ear Plan: Take medication as prescribed Acetaminophen for pain relief. Orders: Orders SARS-CoV2/FLU/RSV Today J06.9 - Acute upper respiratory infection, unspecified Medications: New okicpmeg-zoveozvgm-QK 3.5-10,000-1 mg/mL-unit/mL-% 4 drps otic (ear) left Q8H 5 days 10 mL 0RF H66.92 - Otitis media, unspecified, left ear Coding Level of Care Code Est Pt Level 3 (05351) Diagnoses Viral upper respiratory tract infection J06.9 URI type: unspecified viral URI Left otitis media, unspecified otitis media type H66.92 Otitis media type: unspecified Laterality: left Time Spent (min) 15
== END 2023-06-23 11:31 | disposition home or self-care (01) ==
PROVIDERS: PCP Internal Medicine; Visit Provider Nurse Practitioner Family
DX: J06.9 Acute upper respiratory infection, unspecified (principal); H66.92 Otitis media, unspecified, left ear
CPT/HCPCS: 99213

== ENCOUNTER 2023-06-23 11:27 | Outpatient (REF) | payer MEDICARE, SELFPAY ==
[2023-06-23 14:25] LABS: Influenza A PCR NEGATIVE (Negative); Influenza B PCR NEGATIVE (Negative); Resp Syncy Virus RNA Qual PCR NEGATIVE (Negative); SARS COV2 PCR INHOUSE NEGATIVE (Negative)
== END 2023-06-23 11:28 | disposition home or self-care (01) ==
LOC: HO.LAB 11:27
PROVIDERS: Visit Provider Nurse Practitioner Family
DX: J06.9 Acute upper respiratory infection, unspecified (principal)
CPT/HCPCS: 0241U

== ENCOUNTER 2023-06-30 07:58 | Outpatient (AMB) | payer MEDICARE, SELFPAY ==
[2023-06-30 08:00] VITALS: BP 110/68; PULSE 59; O2SAT 96; BMI 32.4
--- NOTE | 2023-06-30 08:00 | A.OFFPC_ITS ---
Vital Signs 06/30/23 08:00 Height 5 ft Weight 166 lb BMI 32.4 BP 110/68 Blood Pressure Location Lt brachial Position Sitting Pulse 59 Pulse Source Pulse Oximeter Pulse Oximetry (%) 96 Oxygen Delivery Method Room Air Intake Visit Reasons: 6 Month F/U Intake Note: Pt is here today for 6 months follow up visit. Pt is fasting today. Allergies cefotetan Allergy (Unknown, Verified 06/30/23 08:02) unknown cefuroxime [From Ceftin] Allergy (Unknown, Verified 06/30/23 08:02) Unknown ciprofloxacin [Cipro] Allergy (Unknown, Verified 06/30/23 08:02) unknown latex Allergy (Unknown, Verified 06/30/23 08:02) Unknown moxifloxacin [From Avelox] Allergy (Unknown, Verified 06/30/23 08:02) Unknown prochlorperazine [From Compazine] Allergy (Unknown, Verified 06/30/23 08:02) Unknown alendronate sodium Adverse Reaction (Intermediate, Verified 06/30/23 08:02) Stomach Upset Medication List - Last Reconciled 06/30/23 by Jeanne Killian MD albuterol sulfate 90 mcg/actuation 2 inhalations inhalation Q8H PRN albuterol sulfate 90 mcg/actuation 2 puffs inhalation Q6H PRN 30 days budesonide-formoterol 160-4.5 mcg/actuation (Symbicort) 2 puffs inhalation Q12H 30 days furosemide 20 mg PO DAILY lisinopril 30 mg PO DAILY nxpjldvf-wzarlufof-WM 3.5-10,000-1 mg/mL-unit/mL-% 4 drps otic (ear) left Q8H 5 days omeprazole 40 mg (2 x 20 mg) PO DAILY propranolol 20 mg PO BID sertraline 50 mg PO DAILY Tobacco use date assessed: 06/30/23 Fall risk assessment: No Falls in past year Last assessed Fall Risk: 06/30/23 Dental Screening Dental Screen Date: 06/30/23 Did you have a dental visit in the last 12 months?: Yes Did you have a dental problem in the last 6 months where you did not have access to dental care?: No Was dental information given to patient?: Patient has dentist HPI 6 Month F/U HPI0 Details Patient presents for the follow-up of hypertension COPD/restrictive lung disease, portal hypertension. Patient reports intermittent dyspnea on exertion no chest pain or palpitations. She reports breathing improved on Symbicort and follows up with storage architect for restrictive lung disease and lung nodule monitored by serial CT [facility], [facility] Medical History (Updated 06/30/23 @ 08:54 by Jeanne Killian MD) Bladder carcinoma Osteoporosis Annual physical exam Restrictive lung disease Pulmonary nodule Allergic rhinitis Atypical ductal hyperplasia of breast COPD (chronic obstructive pulmonary disease) Thrombocytopenia Aortic valve sclerosis Breast CA Depression Essential hypertension Portal hypertension Surgical History H/O colonoscopy History of esophagogastroduodenoscopy (EGD) History of surgery History of inguinal hernia repair Hx of cholecystectomy Family History Father No problems noted. Mother Colon cancer Sister Breast cancer Social History Housing: House Alcohol intake: current Alcohol intake frequency: holidays/special occasions only Patient Tobacco Use Status: Never used Tobacco e-Cigarette/Vaping Use: Never Used service: No Current occupational status: retired Cognitive needs: No Hearing needs: No Vision needs: Yes Questionnaire PHQ-9 Over the last 2 weeks, how often have you been bothered by any of the following problems? 1. Little interest or pleasure in doing things: not at all 2. Feeling down, depressed, or hopeless: not at all 3. Trouble falling or staying asleep, or sleeping too much: not at all 4. Feeling tired or having little energy: not at all 5. Poor appetite or overeating: not at all 6. Feeling bad about yourself - or that you are a failure or have let yourself or your family down: not at all 7. Trouble concentrating on things, such as reading the newspaper or watching television: not at all 8. Moving or speaking so slowly that other people could have noticed. Or the opposite - being so fidgety or restless that you have been moving around a lot more than usual: not at all 9. Thoughts that you would be better off or of hurting yourself in some way: not at all Total score: 0 Depression Screening Interpretation: Negative Depression Screening Done: Yes Source: Developed by Drs. Alber Mcelroy, Rula Pantoja, Ranulfo Kirkpatrick and colleagues, with an educational laly from [employer]. Thrive Questionnaire Date Thrive assessed: 06/30/23 I am a: Patient What is your living situation today?: I have a steady place to live Within the past 12 months, did the food you bought not last and you didn't have the money to get more?: Sometimes True Within the past 12 months, did you worry whether your food would run out before you got money to buy more?: Never true Do you have trouble paying for medicines?: Yes Do you have trouble getting transportation to medical appointments?: No Do you have trouble paying your heating and electricity bill?: No Do you have trouble taking care of your child, family member or friend?: No Do you have trouble with day-to-day activities such as bathing, preparing meals, shopping, managing finances, etc.?: No Are you currently unemployed and looking for a job?: Yes Are you interested in more education?: No Please select the resources that you would like help with: Paying for medicine and Job search/training THRIVE Score: 1 AUDIT C Alcohol Use Questionnaire (AUDIT-C) 1. How often do you have a drink containing alcohol?: Never 3. How often do you have six or more drinks on one occasion?: Never Total Score: 0 ELENA-7 AMB Questionnaire ELENA-7 Date ELENA - 7 assessed: 06/30/23 Feeling nervous, anxious, or on edge: 0 = Not at all Not being able to stop or control worryin = Not at all Worrying too much about different things: 0 = Not at all Trouble relaxin = Nearly every day Being so restless that it is hard to sit still: 0 = Not at all Becoming easily annoyed or irritable: 0 = Not at all Feeling afraid as if something awful might happen: 0 = Not at all Total ELENA-7 score (0-4 normal; 5-9 mild; 10-14 moderate; 15-21 severe): 3 Source: Developed by Drs. Alber Mcelroy, Rula Pantoja, Ranulfo Kirkpatrick and colleagues, with an educational laly from [employer]. Review of Systems Const All systems reviewed & are unremarkable except as noted in HPI and below ENT Reports no additional complaints Card Reports no additional complaints Resp Reports no additional complaints GI Reports no additional complaints Reports no additional complaints Physical exam (Primary Care) Vital Signs: Last Vital Signs Pulse 59 06/30/23 08:00 BP 110/68 06/30/23 08:00 Pulse Ox 96 06/30/23 08:00 Oxygen Delivery Method Room Air 06/30/23 08:00 BMI result Body Mass Index 32.4 Tobacco/Smoking Status: Tobacco use Status Tobacco use date assessed 06/30/23 06/30/23 08:06 Patient Tobacco Use Status Never used Tobacco 06/30/23 08:06 e-Cigarette/Vaping Use Never Used 06/30/23 08:06 Depression Screening Interpretation: Negative Thrive Assessment: Date of Thrive Assessment Date Thrive assessed 04/19/22 06/30/23 08:06 Const General: no acute distress HENMT Head: Yes normal to inspection Eyes General: appearance normal, both eyes and all related structures Neck Neck: Yes supple Resp Effort & Inspection: normal respiratory effort Auscultation: crackles bilateral and diffuse and diminished lung sounds Cardio Rhythm: regular rhythm Heart sounds: S1 normal heart sound present, S2 normal heart sound present and Murmur heart sound present systolic II/ GI Inspection: Yes normal to inspection Palpation (GI): Soft to palpation Percussion: Yes normal to percussion Auscultation: normal bowel sounds Assessment and Plan Assessment & Plan (1) Essential hypertension: Code(s): I10 - Essential (primary) hypertension Plan: Continue current medications (2) COPD (chronic obstructive pulmonary disease): Comment: She does have mild to moderate ASTHMA/ COPD . It is relatively stable Code(s): J44.9 - Chronic obstructive pulmonary disease, unspecified Plan: Continue Symbicort (3) Vitamin D deficiency: Code(s): E55.9 - Vitamin D deficiency, unspecified Plan: Check vitamin-D level (4) Anemia: Code(s): D64.9 - Anemia, unspecified Plan: Check CBC and iron studies (5) Osteoporosis: Comment: DEXA 07/03, T SCORE -3.8 hip, took Fosamax for 5 years but stopped > 5 years, Fosamax caused stomach upset , Prolia not covered by the insurance, 1st Reclast inf 05/07 Code(s): M81.0 - Age-related osteoporosis without current pathological fracture Plan: Continue vitamin-D and Reclast infusion annually (6) Portal hypertension: Comment: Follow-up with GI with serial EGD Code(s): K76.6 - Portal hypertension Plan: Continue propranolol and follow-up with GI (7) Bladder carcinoma: Comment: f/u annually with Urology Code(s): C67.9 - Malignant neoplasm of bladder, unspecified Orders: Orders Comprehensive Met. Panel Today D64.9 - Anemia, unspecified, E55.9 - Vitamin D deficiency, unspecified, I10 - Essential (primary) hypertension, J44.9 - Chronic obstructive pulmonary disease, unspecified Vitamin B12 and Folate Today D64.9 - Anemia, unspecified, E55.9 - Vitamin D deficiency, unspecified, I10 - Essential (primary) hypertension, J44.9 - Chronic obstructive pulmonary disease, unspecified Immunofixation Pnl, Serum Today D64.9 - Anemia, unspecified, E55.9 - Vitamin D deficiency, unspecified, I10 - Essential (primary) hypertension, J44.9 - Chronic obstructive pulmonary disease, unspecified CA echo transthoracic complete Today I10 - Essential (primary) hypertension, J44.9 - Chronic obstructive pulmonary disease, unspecified, R01.1 - Cardiac murmur, unspecified Complete Blood Count Auto Diff Today D64.9 - Anemia, unspecified, E55.9 - Vitamin D deficiency, unspecified, I10 - Essential (primary) hypertension, J44.9 - Chronic obstructive pulmonary disease, unspecified Vitamin D 25-OH Total Today D64.9 - Anemia, unspecified, E55.9 - Vitamin D deficiency, unspecified, I10 - Essential (primary) hypertension, J44.9 - Chronic obstructive pulmonary disease, unspecified IRON PROFILE Today D64.9 - Anemia, unspecified, E55.9 - Vitamin D deficiency, unspecified, I10 - Essential (primary) hypertension, J44.9 - Chronic obstructive pulmonary disease, unspecified Coding Level of Care Code Est Pt Level 4 (18832) Diagnoses Essential hypertension I10 COPD (chronic obstructive pulmonary disease) J44.9 Vitamin D deficiency E55.9 Anemia D64.9 Osteoporosis M81.0 Portal hypertension K76.6 Bladder carcinoma C67.9
== END 2023-06-30 08:55 | disposition home or self-care (01) ==
PROVIDERS: PCP Internal Medicine; Visit Provider Internal Medicine
DX: I10 Essential (primary) hypertension (principal); K76.6 Portal hypertension; J44.9 Chronic obstructive pulmonary disease, unspecified; C67.9 Malignant neoplasm of bladder, unspecified; E55.9 Vitamin D deficiency, unspecified; D64.9 Anemia, unspecified; M81.0 Age-related osteoporosis without current pathological fracture
CPT/HCPCS: 99214

== ENCOUNTER 2023-06-30 08:46 | Outpatient (REF) | payer MEDICARE, SELFPAY ==
[2023-06-30 10:26] LABS: MANUAL DIFF FLAG NO
[2023-06-30 10:40] LABS: Basophils Percent Auto 0.4 % (0-2); Eosinophils Absolute Auto 0.2 X10*3/uL (0.0-0.4); Eosinophils Percent Auto 3.6 % (0-4); Hematocrit 38.6 % (37.0-47.0); Hemoglobin 12.5 g/dl (12.0-16.0); Imm Gran Abs Auto 0.02 X10*3/uL (0.00-0.03); Imm Gran Pct Auto 0.4 % (0.0-0.4); Lymphocytes Absolute Auto 0.8 X10*3/uL (1.2-4.9); Lymphocytes Percent Auto 16.1 % (20-40); Mean Corpuscular HGB Conc 32.4 g/dl (31.0-35.0); Mean Corpuscular Hemoglobin 29.9 pg (27.0-33.0); Mean Corpuscular Volume 92.3 fL (80.0-98.0); Mean Platelet Volume 9.3 fL (9.4-12.3); Monocytes Absolute Auto 0.3 X10*3/uL (0.1-1.2); Monocytes Percent Auto 6.2 % (2-11); Neutrophils Absolute Auto 3.7 x10*3/uL (2.0-8.3); Neutrophils Percent Auto 73.3 % (45-73); Platelet Count 144 X10*3/uL (160-400); Red Blood Count 4.18 X10*6/uL (4.20-5.50); Red Cell Distribution Width 13.7 % (11.0-16.0)
[2023-06-30 10:53] LABS: Alanine Aminotransferase 12 U/L (0-31); Albumin Level 3.6 g/dL (3.5-5.0); Alkaline Phosphatase 99 U/L (39-117); Anion Gap 8 (12-20); Aspartate Amino Transferase 24 U/L (5-31); Bilirubin Total 0.8 mg/dL (0.0-1.0); Blood Urea Nitrogen 15 mg/dL (9-16); Calcium 9.2 mg/dL (8.4-10.2); Carbon Dioxide 32 mmol/L (22-29); Chloride 106 mmol/L (96-108); Estimated Glomerular Filt Rate 54; Glucose Random 94 mg/dL (60-115); Iron 66 mcg/dL (30-160); Percent Iron Saturation 46 % (15-50); Potassium 4.4 mmol/L (3.3-5.1); Sodium 142 mmol/L (135-145); Total Iron Binding Capacity 143 mcg/dL (228-428); Total Protein 6.9 g/dL (6.5-8.0); Unsaturated Iron Binding 77 ug/dL
[2023-06-30 11:08] LABS: Vitamin D 25-OH Total 48.7 ng/mL (>30)
[2023-06-30 18:24] LABS: Folate 12.6 ng/mL (> or = 4.0); Vitamin B12 647 pg/mL (200-900)
[2023-07-05 09:08] LABS: IgA 374 mg/dL (70-320); IgG 1281 mg/dL (600-1540); IgM 119 mg/dL (50-300)
== END 2023-06-30 08:47 | disposition home or self-care (01) ==
LOC: HO.HMGCLDS 08:46
PROVIDERS: PCP Internal Medicine; Visit Provider Internal Medicine
DX: I10 Essential (primary) hypertension (principal); J44.9 Chronic obstructive pulmonary disease, unspecified; E55.9 Vitamin D deficiency, unspecified; D64.9 Anemia, unspecified
CPT/HCPCS: 36415; 80053; 82306; 82607; 82746; 82784; 83540; 85025; 86334

== ENCOUNTER 2023-07-18 10:04 | Outpatient (AMB) | payer MEDICARE, SELFPAY ==
[2023-07-18 10:15] VITALS: BP 130/72; PULSE 61; O2SAT 95; BMI 33.0
--- NOTE | 2023-07-18 10:15 | A.OFFVIS_ITS ---
Vital Signs 07/18/23 10:15 Height 5 ft Weight 169 lb BMI 33.0 BP 130/72 Blood Pressure Location Lt brachial Position Sitting Pulse 61 Pulse Source Pulse Oximeter Pulse Oximetry (%) 95 Oxygen Delivery Method Room Air Intake Visit Reasons: Bronchitis Intake Note: pt is here for follow up and states she is wheezing, and cannot get rid of cough that has production. [employer] Required: No Allergies cefotetan Allergy (Unknown, Verified 07/18/23 10:19) unknown cefuroxime [From Ceftin] Allergy (Unknown, Verified 07/18/23 10:19) Unknown ciprofloxacin [Cipro] Allergy (Unknown, Verified 07/18/23 10:19) unknown latex Allergy (Unknown, Verified 07/18/23 10:19) Unknown moxifloxacin [From Avelox] Allergy (Unknown, Verified 07/18/23 10:19) Unknown prochlorperazine [From Compazine] Allergy (Unknown, Verified 07/18/23 10:19) Unknown alendronate sodium Adverse Reaction (Intermediate, Verified 07/18/23 10:19) Stomach Upset Medication List - Last Reconciled 07/18/23 by Dinorah Stewart MD albuterol sulfate 90 mcg/actuation 2 puffs inhalation Q6H PRN 30 days budesonide-formoterol 160-4.5 mcg/actuation (Symbicort) 2 puffs inhalation Q12H 30 days furosemide 20 mg PO DAILY lisinopril 30 mg PO DAILY wnolqkks-ktzsemlnq-FD 3.5-10,000-1 mg/mL-unit/mL-% 4 drps otic (ear) left Q8H 5 days omeprazole 40 mg (2 x 20 mg) PO DAILY propranolol 20 mg PO BID sertraline 50 mg PO DAILY Do you need a note to return to daycare/school/sports/work: No HPI HPI Bronchitis: Details: BONNIE IS 72 YEARS OLD FEMALE AND IS COMING FOR FOLLOW-UP AFTER 4 MONTHS. SHE HAS REMAINED FAIRLY STABLE EXCEPT THAT A FEW WEEKS AGO SHE HAD UPPER RESPIRATORY INFECTION, AND HER PRIMARY CARE PHYSICIAN TREATED HER WITH A COURSE OF DOXYCYCLINE. NOW SHE IS FREE OF ANY ACTIVE INFECTION. HER MAIN COMPLAINT IS THAT SHE GETS SHORT OF BREATH ON WALKING FAST OR CLIMBING 1 FLIGHT OF STAIRS. COUGH IS MINIMAL WITHOUT MUCH EXPECTORATION AT THIS TIME. SHE HAS NO ACTIVE NASAL CONGESTION AT THIS TIME. MAIN COMPLAINT IS THE [place] OF SYMBICORT, SHE SAY IS THE CO-PAYMENT IS OVER 250 DOLLARS EVERY MONTH AND REQUESTS A CHANGED TO AN OTHER EQUIVALENT AGENT, WITH BETTER COVERAGE BY THE INSURANCE. [facility] Medical History Bladder carcinoma Osteoporosis Annual physical exam Restrictive lung disease Pulmonary nodule Allergic rhinitis Atypical ductal hyperplasia of breast COPD (chronic obstructive pulmonary disease) Thrombocytopenia Aortic valve sclerosis Breast CA Depression Essential hypertension Portal hypertension Surgical History H/O colonoscopy History of esophagogastroduodenoscopy (EGD) History of surgery History of inguinal hernia repair Hx of cholecystectomy Family History Father No problems noted. Mother Colon cancer Sister Breast cancer Social History Housing: House Alcohol intake: current Alcohol intake frequency: holidays/special occasions only Patient Tobacco Use Status: Never used Tobacco e-Cigarette/Vaping Use: Never Used service: No Current occupational status: retired Cognitive needs: No Hearing needs: No Vision needs: Yes Review of Systems Const All systems reviewed & are unremarkable except as noted in HPI and below Eyes Reports no additional complaints ENT Reports nasal congestion (Mild intermittent) Card Denies chest pain, Denies irregular heart rhythm and Denies leg edema Resp Reports as per HPI GI Reports heartburn (Controlled with omeprazole) Reports no additional complaints Musc Reports no additional complaints Skin/Breast Reports system reviewed and no additional complaints, except as documented Neuro Reports no additional complaints Psych Reports depression (Mild well controlled) Endo Reports no additional complaints Physical Exam Vital Signs: Last Vital Signs Pulse 61 07/18/23 10:15 BP 130/72 07/18/23 10:15 Pulse Ox 95 07/18/23 10:15 Oxygen Delivery Method Room Air 07/18/23 10:15 BMI result Body Mass Index 33.0 Const General: comfortable, no acute distress, alert and awake Orientation/consciousness: patient oriented x3 HEENT Head: Yes normal to inspection General nose exam: No nasal polyps present, No nasal discharge present and Other nasal findings present (HAS MILD NASAL CONGESTION, ALSO HAS A FEW SUPERFICIAL ULCERATED AREAS ) Face and sinus: Yes sinuses nontender Mouth: oropharynx normal Throat: Yes posterior oropharynx normal Eyes General: appearance normal, both eyes and all related structures Neck Neck: Yes normal visual inspection, Yes no lymphadenopathy, Yes trachea midline and Yes no JVD Thyroid: Thyroid normal Chest Chest palpation & inspection: normal inspection of the chest, normal palpation of entire chest wall and no tenderness Resp Other: Percussion note is resonant, she has good breath sounds on both sides, slightly prolonged expiratory phase. No audible wheezes rhonchi or crepitations. Cardio Palpation: normal PMI Rate: regular rate Rhythm: regular rhythm Heart sounds: no gallops and no murmurs Peripheral pulses: Peripheral pulses 2+ throughout GI Palpation (GI): Soft to palpation, nontender, No hepatosplenomegaly present and no masses Auscultation: normal bowel sounds Back/Spine/Pelvis Thoracic/Lumbar Spine: thoracic and lumbar spine normal to inspection Skin General skin exam: no rashes or lesions noted Neuro General: patient oriented x3 and no focal motor deficits Cranial nerves: Yes CN's II-XII intact bilaterally Extrem General: Yes normal to inspection, Yes no clubbing, cyanosis or edema and Yes no calf tenderness Psych Appearance: grossly normal and well kempt Speech and movement: Normal speech and movement present Results Reviewed Results Reviewed: CT SCAN OF THE CHEST PERFORMED AT [facility], ON 05/31/2023, THE REPORT IS REVIEWED THERE IS RESOLUTION OF AN OPACITY IN LEFT UPPER LOBE WHICH WAS PRESENT BEFORE. THERE IS INTERVAL IMPROVEMENT OF THE TREE IN BUD NODULARITY IN RIGHT UPPER LOBE. THERE IS STILL SOME SUB PLEURAL RETICULATION IN THE RIGHT UPPER LOBE PROBABLY RESIDUAL FROM A PREVIOUS INFECTION. Assessment & Plan Assessment & Plan (1) COPD (chronic obstructive pulmonary disease): Comment: She does have mild to moderate ASTHMA/ COPD . It is relatively stable, her main complaint is dyspnea on exertion. Also she complains about the co-payment for Symbicort. Code(s): J44.9 - Chronic obstructive pulmonary disease, unspecified Category: Medical Plan: Explained about the reason for dyspnea on exertion. It is due to combination of COPD/restrictive lung disease. She is advised to do deep breathing exercises 3 times a day. TX : Will change Symbicort to Advair HFA 230/21 2 puffs b.i.d. Continue to use ProAir 2 puffs Q 6 hours only p.r.n. (2) Allergic rhinitis: Comment: VERY MILD, INTERMITTENT. Code(s): J30.9 - Allergic rhinitis, unspecified Category: Medical Plan: OK to use Claritin 10 mg as needed (3) Restrictive lung disease: Comment: PATIENT WAS EXPLAINED THAT SHE HAS RESTRICTIVE DISORDER, WHICH MAY BE DUE TO BEING OVERWEIGHT, or MILD DEGREE OF INTERSTITIAL LUNG DISEASE. Code(s): J98.4 - Other disorders of lung Category: Medical Plan: Try to lose some weight Do deep breathing exercises at least 3 times a day (4) Pulmonary nodule: Comment: IT WAS ACTUALLY A NONSPECIFIC GROUND-GLASS DENSITY IN THE LEFT UPPER LOBE., AND PER RECENT CT SCAN AT [facility] IT IS RESOLVED. TREE IN BUD CHANGES AND NODULARITY IN THE RIGHT UPPER LOBE HAS ACTUALLY IMPROVED. Code(s): R91.1 - Solitary pulmonary nodule Category: Medical Plan: I EXPLAINED THE REPORT TO THE PATIENT AND REASSURED HER Medications: New fluticasone propion-salmeterol 230-21 mcg/actuation (Advair HFA) 2 puffs inhalation BID 30 days 12 grams 5RF COPD Coding Level of Care Code Est Pt Level 3 (35567) Diagnoses COPD (chronic obstructive pulmonary disease) J44.9 Allergic rhinitis J30.9 Restrictive lung disease J98.4 Pulmonary nodule R91.1
== END 2023-07-18 10:35 | disposition home or self-care (01) ==
PROVIDERS: PCP Internal Medicine; Visit Provider Internal Medicine
DX: J44.9 Chronic obstructive pulmonary disease, unspecified (principal); J30.9 Allergic rhinitis, unspecified; J98.4 Other disorders of lung; R91.1 Solitary pulmonary nodule
CPT/HCPCS: 99213

== ENCOUNTER → 2023-07-18 10:04 | Outpatient (BNVA) | payer MEDICARE, SELFPAY | PROVIDERS: PCP Internal Medicine; Visit Provider Internal Medicine | DX: J44.9 Chronic obstructive pulmonary disease, unspecified (principal); J30.9 Allergic rhinitis, unspecified; J98.4 Other disorders of lung; R91.1 Solitary pulmonary nodule | CPT/HCPCS: 99212 ==

== ENCOUNTER → 2023-07-25 08:08 | Outpatient (REF) | payer MEDICARE, SELFPAY ==
--- NOTE | 2023-07-25 08:11 | CA_ITS ---
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 Normal LV ejection fraction of 65-70% with moderate LVH with grade 3 diastolic dysfunction 2. Moderate left atrial enlargement 3. Moderate paradoxical low-flow aortic stenosis with mild aortic regurgitation 4. Moderate mitral annular calcification with mild mitral regurgitation 5. Normal measured RV systolic pressure 6. No gross pericardial effusion Findings Left Ventricle Normal left ventricular cavity size. There is moderately increased left ventricular wall thickness. The left ventricular systolic function is normal. The visually estimated ejection fraction is between 65-70%. Spectral Doppler is indicative of a restrictive filling pattern. E/E prime ratio is >15, consistent with elevated filling pressures. Evidence suggests grade III (severe) diastolic dysfunction. Peak GLS is -17.8%, borderline normal. Right Ventricle Normal right ventricular cavity size and systolic function. Atria The left atrium is moderately dilated. There is no evidence of interatrial shunt. The right atrium is mildly dilated. Aortic Valve There is mild calcification of the aortic valve. There is moderate aortic valve stenosis. The mean gradient is 14 mmHg. The aortic valve area is 1.15 cm2. There is mild aortic valve regurgitation. Mitral Valve There is mild anterior and moderate posterior mitral leaflet thickening. There is moderate mitral annular calcification. There is mild mitral valve regurgitation. There is no mitral valve stenosis. Pulmonic Valve The pulmonic valve was not well visualized. Tricuspid Valve Normal tricuspid valve structure. There is mild tricuspid valve regurgitation. The right ventricular systolic pressure is normal. The right ventricular systolic pressure is 26 mmHg. Normal right atrial pressure. There is no evidence of pulmonary hypertension. Great Vessels The pulmonary artery was not well visualized. There is no dilatation of the ascending aorta measuring 2.90 cm. Small plaque is seen in the sino tubular ridge. Venous The inferior vena cava is normal in size and collapses greater than 50% with inspiration. Pericardium/Pleural There is no evidence of pericardial effusion. Prior Study Comparison No prior study available for comparison. Measurements 2D Linear Measurements IVSd: 1.35 0.6-0.9/0.6-1.0 cm LVIDd: 4.04 3.9-5.3/4.2-5.9 cm LVIDd Index: 2.27 2.4-3.2/2.2-3.1 cm/m2 LVIDs: 2.72 2.0-3.6 cm LVPWd: 1.41 0.7-1.1 cm LA Diam: 4.50 2.7-3.8/3.0-4.0 cm LAIDs Index: 2.53 1.5-2.3 cm/m2 LV Mass: 258.43 67-162/88-224 g LV Mass Index: 145.19 43-95/49-115 g/m2 LVOT Diam: 1.70 3.0+(-)1.3 cm 2D Systolic Function EF 4C: 73.10 >55% EF 2C: 66.00 >55% EF BiP: 70.10 >55% Mitral Valve MV Pk E: 1.35 MV PK A: 0.70 MV Decel Time: 116.00 E/A: 1.90 E'Lateral: 6.31 E'Medial: 4.46 E/E' Med: 30.30 E/E' Lat: 21.40 PHT: 34.00 MVA PHT: 6.47 Decel [place]: 11.70 MR Vol - PW Dopp: 7.38 MR VTI: 2.46 MR ERO: 3.00 MR Alias Walter: 0.39 MR RAD: 0.30 Aortic Valve AoV Pk Walter: 2.56 AoV Mn Walter: 1.80 AoV VTI: 0.64 AoV Pk Grad: 26.00 Aov Mn Grad: 14.00 ALONZO Cont.VTI: 1.15 AI Pk Walter: 4.55 AI [place]: 2.99 LVOT LVOT Pk Walter: 1.26 LVOT Mn Walter: 0.87 LVOT VTI: 0.33 LVOT Pk Grad: 6.00 LVOT Mn Grad: 3.00 LVOT Diam: 1.70 LVOT Area: 2.27 Diastolic Function MV Pk E: 1.35 MV Pk A: 0.70 E/A: 1.90 E'Medial: 4.46 E/E' Med: 30.30 E' Laterial: 6.31 E/E' Lat: 21.40 Right Ventricle TAPSE (mm): 23.00 TVS' Walter: 9.79 Tricuspid Valve TR Pk Walter: 2.42 TR Pk Grad: 23.00 RA Press: 3.00 RVSP: 26.00 Great Vessels Aorta Sinus of Valsalva: 2.80 2.0-3.5 cm Ao Asc: 2.90 2.1-3.4 cm Pulmonary Valve PV Pk Walter: 1.72 PV Min Walter: 1.19 Peak PV Grad: 12.00 PV Mn Grad: 7.00 Updated in Other Vendor System with Status of Final Yfn Sanchez MD electronically signed on 07/25/2023 11:48:54 AM with status of Final
== END ==
LOC: HO.CARD 08:08
PROVIDERS: PCP Internal Medicine; Visit Provider Internal Medicine
DX: I10 Essential (primary) hypertension (principal); R01.1 Cardiac murmur, unspecified; J44.9 Chronic obstructive pulmonary disease, unspecified
CPT/HCPCS: 93306; 93356

== ENCOUNTER → 2023-07-25 08:11 | Outpatient (BNV) | payer MEDICARE, SELFPAY | PROVIDERS: PCP Internal Medicine; Visit Provider Internal Medicine Cardiovascular Disease | DX: I35.2 Nonrheumatic aortic (valve) stenosis with insufficiency (principal); I34.0 Nonrheumatic mitral (valve) insufficiency; I34.81 Nonrheumatic mitral (valve) annulus calcification; I36.1 Nonrheumatic tricuspid (valve) insufficiency | CPT/HCPCS: 93306; 93356 ==

== ENCOUNTER 2023-07-26 09:12 | Emergency (ER) | payer MEDICARE, SELFPAY ==
[2023-07-26 09:36] VITALS: BP 199/74; PULSE 64; RESP 18; TEMP 36.9; O2SAT 96; BMI 29.0
[2023-07-26 09:54] LABS: MANUAL DIFF FLAG NO
[2023-07-26 09:55] LABS: Basophils Percent Auto 0.7 % (0-2); Eosinophils Absolute Auto 0.1 X10*3/uL (0.0-0.4); Eosinophils Percent Auto 3.1 % (0-4); Hematocrit 34.9 % (37.0-47.0); Hemoglobin 11.9 g/dl (12.0-16.0); Imm Gran Abs Auto 0.01 X10*3/uL (0.00-0.03); Imm Gran Pct Auto 0.2 % (0.0-0.4); Lymphocytes Absolute Auto 0.8 X10*3/uL (1.2-4.9); Mean Corpuscular HGB Conc 34.1 g/dl (31.0-35.0); Mean Corpuscular Hemoglobin 30.8 pg (27.0-33.0); Mean Corpuscular Volume 90.4 fL (80.0-98.0); Monocytes Absolute Auto 0.2 X10*3/uL (0.1-1.2); Monocytes Percent Auto 5.7 % (2-11); Neutrophils Percent Auto 71.3 % (45-73); Red Blood Count 3.86 X10*6/uL (4.20-5.50); Red Cell Distribution Width 14.2 % (11.0-16.0); White Blood Count 4.2 X10*3/uL (4.8-10.8)
[2023-07-26 10:23] LABS: Mean Platelet Volume 9.4 fL (9.4-12.3); Platelet Count 106 X10*3/uL (160-400)
[2023-07-26 10:28] LABS: Alanine Aminotransferase 12 U/L (0-31); Albumin Level 3.4 g/dL (3.5-5.0); Alkaline Phosphatase 91 U/L (39-117); Anion Gap 14 (12-20); Aspartate Amino Transferase 23 U/L (5-31); Bilirubin Total 0.9 mg/dL (0.0-1.0); Blood Urea Nitrogen 14 mg/dL (9-16); Carbon Dioxide 27 mmol/L (22-29); Chloride 108 mmol/L (96-108); Estimated Glomerular Filt Rate > 60; Glucose Random 112 mg/dL (60-115); Potassium 4.5 mmol/L (3.3-5.1); Sodium 144 mmol/L (135-145); Total Protein 6.5 g/dL (6.5-8.0)
== END 2023-07-26 12:42 | disposition left against medical advice (07) ==
PROVIDERS: Emergency Provider Emergency Medicine; PCP Internal Medicine
DX: I10 Essential (primary) hypertension (principal); R51.9 Headache, unspecified; Z53.21 Procedure and treatment not carried out due to patient leaving prior to being seen by health care provider
CPT/HCPCS: 36415; 80053; 84484; 85025; 99281; 99283

== ENCOUNTER 2023-07-26 13:00 | Outpatient (AMB) | payer MEDICARE, SELFPAY ==
[2023-07-26 13:09] VITALS: BP 130/90; PULSE 68; TEMP 36.4; O2SAT 95; BMI 29.4
--- NOTE | 2023-07-26 13:09 | AM.OFFWIN_ITS ---
Intake Vital Signs 07/26/23 13:09 Height 5 ft 3 in Weight 166 lb BMI 29.4 BP 130/90 H Blood Pressure Location Lt brachial Position Sitting Pulse 68 Pulse Source Pulse Oximeter Temp 97.6 F Temp Source Temporal Artery Scan Pulse Oximetry (%) 95 Oxygen Delivery Method Room Air Intake Visit Reasons: Headache/ weakness legs (was in ED LWBS) Intake Note: pt is here today for haeadache and weakness legs started yesterday Patient Tobacco Use Status: Never used Tobacco Allergies cefotetan Allergy (Unknown, Verified 07/26/23 13:12) unknown cefuroxime [From Ceftin] Allergy (Unknown, Verified 07/26/23 13:12) Unknown ciprofloxacin [Cipro] Allergy (Unknown, Verified 07/26/23 13:12) unknown latex Allergy (Unknown, Verified 07/26/23 13:12) Unknown moxifloxacin [From Avelox] Allergy (Unknown, Verified 07/26/23 13:12) Unknown prochlorperazine [From Compazine] Allergy (Unknown, Verified 07/26/23 13:12) Unknown alendronate sodium Adverse Reaction (Intermediate, Verified 07/26/23 13:12) Stomach Upset Do you need a note to return to daycare/school/sports/work: No HPI Headache/ weakness legs (was in ED LWBS) HPI Details 72-year-old female [facility]. Patient had gone to the emergency room with symptoms of headache. She was found to have elevated blood pressure. She had blood work done. However she could not wait and decided to leave and come here. She was not seen by a provider at the emergency room. Blood work was done. Patient is reporting that her headache symptoms have subsided. She is now in her baseline state of health. FORMERLY [facility] Medical History Bladder carcinoma Osteoporosis Annual physical exam Restrictive lung disease Pulmonary nodule Allergic rhinitis Atypical ductal hyperplasia of breast COPD (chronic obstructive pulmonary disease) Thrombocytopenia Aortic valve sclerosis Breast CA Depression Essential hypertension Portal hypertension Surgical History H/O colonoscopy History of esophagogastroduodenoscopy (EGD) History of surgery History of inguinal hernia repair Hx of cholecystectomy Family History Father No problems noted. Mother Colon cancer Sister Breast cancer Social History Housing: House Alcohol intake: current Alcohol intake frequency: holidays/special occasions only Patient Tobacco Use Status: Never used Tobacco e-Cigarette/Vaping Use: Never Used service: No Current occupational status: retired Cognitive needs: No Hearing needs: No Vision needs: Yes Physical Exam Vital Signs: Last Vital Signs Temp 97.6 F 07/26/23 13:09 Pulse 68 07/26/23 13:09 BP 130/90 H 07/26/23 13:09 Pulse Ox 95 07/26/23 13:09 Oxygen Delivery Method Room Air 07/26/23 13:09 BMI result Body Mass Index 29.4 Const General: cooperative and healthy appearing Nutritional Appearance: well nourished Orientation/consciousness: patient oriented x3 Limitations: no limitations HEENT Head: Yes normal to inspection Eyes General: appearance normal, both eyes and all related structures Neck Neck: Yes normal visual inspection Chest Chest palpation & inspection: normal palpation of entire chest wall Resp Effort & Inspection: normal respiratory effort Neuro General: patient oriented x3 Assessment & Plan Assessment & Plan (1) Essential hypertension: Code(s): I10 - Essential (primary) hypertension Plan: Blood work reviewed with patient. It is at baseline. Continue blood pressure medications at same dosage. Coding Level of Care Code Est Pt Level 3 (52611) Diagnoses Essential hypertension I10
== END 2023-07-26 15:48 | disposition home or self-care (01) ==
PROVIDERS: PCP Internal Medicine; Visit Provider Internal Medicine
DX: I10 Essential (primary) hypertension (principal)
CPT/HCPCS: 99213

== ENCOUNTER 2023-07-27 12:00 | Outpatient (AMB) | payer MEDICARE, SELFPAY ==
[2023-07-27 13:00] VITALS: BP 139/88; PULSE 70; O2SAT 94; BMI 29.6
--- NOTE | 2023-07-27 13:00 | MHC.PC.OV ---
Vital Signs 07/27/23 13:00 Height 5 ft 3 in Weight 167 lb BMI 29.6 BP 139/88 Blood Pressure Location Lt brachial Position Sitting Pulse 70 Pulse Source Pulse Oximeter Pulse Oximetry (%) 94 Oxygen Delivery Method Room Air Intake Visit Reasons: Follow up on BP Intake Note: Pt is here today for follow up visit on BP. Allergies cefotetan Allergy (Unknown, Verified 07/26/23 13:12) unknown cefuroxime [From Ceftin] Allergy (Unknown, Verified 07/26/23 13:12) Unknown ciprofloxacin [Cipro] Allergy (Unknown, Verified 07/26/23 13:12) unknown latex Allergy (Unknown, Verified 07/26/23 13:12) Unknown moxifloxacin [From Avelox] Allergy (Unknown, Verified 07/26/23 13:12) Unknown prochlorperazine [From Compazine] Allergy (Unknown, Verified 07/26/23 13:12) Unknown alendronate sodium Adverse Reaction (Intermediate, Verified 07/26/23 13:12) Stomach Upset Medication List - Last Reconciled 07/27/23 by Jeanne Killian MD albuterol sulfate 90 mcg/actuation 2 puffs inhalation Q6H PRN 30 days amlodipine 5 mg PO DAILY budesonide-formoterol 160-4.5 mcg/actuation (Symbicort) 2 puffs inhalation Q12H 30 days furosemide 20 mg PO DAILY lisinopril 30 mg PO DAILY [id number]-tncpxqdeh-LE 3.5-10,000-1 mg/mL-unit/mL-% 4 drps otic (ear) left Q8H 5 days omeprazole 40 mg (2 x 20 mg) PO DAILY propranolol 20 mg PO BID sertraline 50 mg PO DAILY Tobacco use date assessed: 06/30/23 Dental Screening Dental Screen Date: 06/30/23 HPI Follow up on BP HPI Details Patient presents complaining of elevated blood pressure up to 150/90 in the last few months. She has been compliant taking her medications regularly. Patient started using Symbicort instead of Advair recently for COPD. Chronic anxiety is stable on sertraline. FORMERLY [facility] Medical History Bladder carcinoma Osteoporosis Annual physical exam Restrictive lung disease Pulmonary nodule Allergic rhinitis Atypical ductal hyperplasia of breast COPD (chronic obstructive pulmonary disease) Thrombocytopenia Aortic valve sclerosis Breast CA Depression Essential hypertension Portal hypertension Surgical History H/O colonoscopy History of esophagogastroduodenoscopy (EGD) History of surgery History of inguinal hernia repair Hx of cholecystectomy Family History Father No problems noted. Mother Colon cancer Sister Breast cancer Social History Housing: House Alcohol intake: current Alcohol intake frequency: holidays/special occasions only Patient Tobacco Use Status: Never used Tobacco e-Cigarette/Vaping Use: Never Used service: No Current occupational status: retired Cognitive needs: No Hearing needs: No Vision needs: Yes Questionnaire Thrive Questionnaire Date Thrive assessed: 06/30/23 ELENA-7 AMB Questionnaire ELENA-7 Date ELENA - 7 assessed: 06/30/23 Source: Developed by Drs. Alber Mcelroy, Rula Pantoja, Ranulfo Kirkpatrick and colleagues, with an educational laly from [email or web address] Review of Systems Const All systems reviewed & are unremarkable except as noted in HPI and below ENT Reports no additional complaints Card Reports no additional complaints Resp Reports no additional complaints GI Reports no additional complaints Physical exam (Primary Care) Vital Signs: Last Vital Signs Pulse 70 07/27/23 13:00 BP 178/80 H 07/27/23 13:00 Pulse Ox 94 07/27/23 13:00 Oxygen Delivery Method Room Air 07/27/23 13:00 BMI result Body Mass Index 29.6 Tobacco/Smoking Status: Tobacco use Status Tobacco use date assessed 06/30/23 07/27/23 13:04 Patient Tobacco Use Status Never used Tobacco 07/27/23 13:04 e-Cigarette/Vaping Use Never Used 07/27/23 13:04 Thrive Assessment: Date of Thrive Assessment Date Thrive assessed 06/30/23 07/27/23 13:04 Const General: no acute distress Neck Neck: Yes supple Resp Effort & Inspection: normal respiratory effort Auscultation: diminished lung sounds Cardio Rhythm: regular rhythm Heart sounds: S1 normal heart sound present and S2 normal heart sound present GI Inspection: Yes normal to inspection Palpation (GI): Soft to palpation Assessment and Plan Assessment & Plan (1) COPD (chronic obstructive pulmonary disease): Comment: She does have mild to moderate ASTHMA/ COPD . It is relatively stable, her main complaint is dyspnea on exertion. Also she complains about the co-payment for Symbicort. Code(s): J44.9 - Chronic obstructive pulmonary disease, unspecified Plan: Continue Symbicort (2) Portal hypertension: Comment: Follow-up with GI with serial EGD Code(s): K76.6 - Portal hypertension Plan: Continue propranolol furosemide and follow-up with GI (3) Osteoporosis: Comment: DEXA 07/03, T SCORE -3.8 hip, took Fosamax for 5 years but stopped > 5 years, Fosamax caused stomach upset , Prolia not covered by the insurance, 1st Reclast inf 05/07 Code(s): M81.0 - Age-related osteoporosis without current pathological fracture Plan: Continue vitamin-D and calcium supplement (4) Essential hypertension: Code(s): I10 - Essential (primary) hypertension Plan: Add 5 mg of amlodipine to 30 mg of lisinopril, [place] for blood pressure check next week. Patient is going to [place] for over a month and will follow-up after her trip Medications: New amlodipine 5 mg PO DAILY 90 tabs 0RF amlodipine 5 mg PO DAILY 90 tabs 0RF Refilled omeprazole 40 mg (2 x 20 mg) PO DAILY 180 caps 3RF K21.9 - Gastro-esophageal reflux disease without esophagitis Discontinued fluticasone propion-salmeterol 230-21 mcg/actuation (Advair HFA) Discontinued Reason: Doctor's Order 2 puffs inhalation BID 30 days 12 grams 5RF COPD Coding Level of Care Code Est Pt Level 4 (88951) Diagnoses COPD (chronic obstructive pulmonary disease) J44.9 Portal hypertension K76.6 Osteoporosis M81.0 Essential hypertension I10
== END 2023-07-27 13:45 | disposition home or self-care (01) ==
PROVIDERS: PCP Internal Medicine; Visit Provider Internal Medicine
DX: J44.9 Chronic obstructive pulmonary disease, unspecified (principal); K76.6 Portal hypertension; M81.0 Age-related osteoporosis without current pathological fracture; I10 Essential (primary) hypertension
CPT/HCPCS: 99214

== ENCOUNTER 2023-09-19 09:37 | Outpatient (AMB) | payer MEDICARE, SELFPAY ==
--- NOTE | 2023-09-19 09:51 | A.OFFPC_ITS ---
Vital Signs 09/19/23 09:54 Height 5 ft 3 in Weight 170 lb BMI 30.1 BP 114/66 Blood Pressure Location Lt brachial Position Sitting Pulse 62 Pulse Source Pulse Oximeter Pulse Oximetry (%) 98 Oxygen Delivery Method Room Air Intake Visit Reasons: Swelling of ankles Intake Note: pt here for bilateral ankle swelling Allergies cefotetan Allergy (Unknown, Verified 09/19/23 09:52) unknown cefuroxime [From Ceftin] Allergy (Unknown, Verified 09/19/23 09:52) Unknown ciprofloxacin [Cipro] Allergy (Unknown, Verified 09/19/23 09:52) unknown latex Allergy (Unknown, Verified 09/19/23 09:52) Unknown moxifloxacin [From Avelox] Allergy (Unknown, Verified 09/19/23 09:52) Unknown prochlorperazine [From Compazine] Allergy (Unknown, Verified 09/19/23 09:52) Unknown alendronate sodium Adverse Reaction (Intermediate, Verified 09/19/23 09:52) Stomach Upset Medication List - Last Reconciled 09/19/23 by Jeanne Killian MD albuterol sulfate 90 mcg/actuation 2 puffs inhalation Q6H PRN 30 days amlodipine 5 mg PO DAILY budesonide-formoterol 160-4.5 mcg/actuation (Symbicort) 2 puffs inhalation Q12H 30 days fluticasone propion-salmeterol 230-21 mcg/actuation (Advair HFA) 2 puffs inhalation BID 90 days furosemide 20 mg PO DAILY lisinopril 40 mg PO DAILY [id number]-mnwnlfzsc-RG 3.5-10,000-1 mg/mL-unit/mL-% 4 drps otic (ear) left Q8H 5 days omeprazole 40 mg PO DAILY propranolol 20 mg PO BID sertraline 50 mg PO DAILY Tobacco use date assessed: 09/19/23 Dental Screening Dental Screen Date: 09/19/23 Did you have a dental visit in the last 12 months?: Yes Did you have a dental problem in the last 6 months where you did not have access to dental care?: No Was dental information given to patient?: Patient has dentist HPI Swelling of ankles HPI Details Patient complains of increased lower extremity swelling since starting amlodipine. Patient denies shortness of breath chest pain cough. [facility] Medical History Bladder carcinoma Osteoporosis Annual physical exam Restrictive lung disease Pulmonary nodule Allergic rhinitis Atypical ductal hyperplasia of breast COPD (chronic obstructive pulmonary disease) Thrombocytopenia Aortic valve sclerosis Breast CA Depression Essential hypertension Portal hypertension Surgical History H/O colonoscopy History of esophagogastroduodenoscopy (EGD) History of surgery History of inguinal hernia repair Hx of cholecystectomy Family History Father No problems noted. Mother Colon cancer Sister Breast cancer Social History Housing: House Alcohol intake: current Alcohol intake frequency: holidays/special occasions only Patient Tobacco Use Status: Never used Tobacco e-Cigarette/Vaping Use: Never Used service: No Current occupational status: retired Cognitive needs: No Hearing needs: No Vision needs: Yes Questionnaire Thrive Questionnaire Date Thrive assessed: 06/30/23 ELENA-7 AMB Questionnaire ELENA-7 Date ELENA - 7 assessed: 06/30/23 Source: Developed by Drs. Alber Mcelroy, Rula Pantoja, Ranulfo Kirkpatrick and colleagues, with an educational laly from [email or web address]. Review of Systems Const All systems reviewed & are unremarkable except as noted in HPI and below ENT Reports no additional complaints Card Reports no additional complaints Resp Reports no additional complaints GI Reports no additional complaints Reports no additional complaints Physical exam (Primary Care) Vital Signs: Last Vital Signs Pulse 62 09/19/23 09:54 BP 114/66 09/19/23 09:54 Pulse Ox 98 09/19/23 09:54 Oxygen Delivery Method Room Air 09/19/23 09:54 BMI result Body Mass Index 30.1 Tobacco/Smoking Status: Tobacco use Status Tobacco use date assessed 09/19/23 09/19/23 09:53 Patient Tobacco Use Status Never used Tobacco 09/19/23 09:51 e-Cigarette/Vaping Use Never Used 09/19/23 09:51 Thrive Assessment: Date of Thrive Assessment Date Thrive assessed 06/30/23 09/19/23 09:51 Const General: no acute distress Eyes General: appearance normal, both eyes and all related structures Neck Neck: Yes supple Resp Effort & Inspection: normal respiratory effort Auscultation: clear to auscultation bilaterally Cardio Rhythm: regular rhythm Heart sounds: S1 normal heart sound present and S2 normal heart sound present GI Inspection: Yes normal to inspection Palpation (GI): Soft to palpation Percussion: Yes normal to percussion Auscultation: normal bowel sounds Extrem Other: 2+ pitting edema bilaterally Assessment and Plan Assessment & Plan (1) Essential hypertension: Comment: 5 mg of amlodipine caused lower extremities edema Code(s): I10 - Essential (primary) hypertension Plan: Patient will increase lisinopril to 40 mg and stop amlodipine. She will continue furosemide for lower extremity swelling. She was advised to avoid salt elevate lower extremities follow-up in 1 month for blood pressure check (2) Anemia: Comment: Chronic, after chemotherapy, normal iron and B12 Code(s): D64.9 - Anemia, unspecified Orders: Orders Complete Blood Count Auto Diff 1 Month D64.9 - Anemia, unspecified, I10 - Essential (primary) hypertension Comprehensive [place]. Panel Fast 1 Month D64.9 - Anemia, unspecified, I10 - Essential (primary) hypertension Medications: New lisinopril 40 mg PO DAILY 90 tabs 0RF lisinopril 40 mg PO DAILY 30 tabs 0RF Discontinued lisinopril Discontinued Reason: Doctor's Order 30 mg PO DAILY 90 tabs 3RF Coding Level of Care Code Est Pt Level 3 (46928) Diagnoses Essential hypertension I10 Anemia D64.9
[2023-09-19 09:54] VITALS: BP 114/66; PULSE 62; O2SAT 98; BMI 30.1
== END 2023-09-19 10:16 | disposition home or self-care (01) ==
PROVIDERS: PCP Internal Medicine; Visit Provider Internal Medicine
DX: I10 Essential (primary) hypertension (principal); D64.9 Anemia, unspecified
CPT/HCPCS: 99213

== ENCOUNTER 2023-11-01 09:30 | Outpatient (AMB) | payer MEDICARE, SELFPAY ==
[2023-11-01 09:32] VITALS: BP 124/66; PULSE 66; O2SAT 95; BMI 29.8
--- NOTE | 2023-11-01 09:32 | A.OFFPC_ITS ---
Vital Signs 11/01/23 09:32 Height 5 ft 3 in Weight 168 lb BMI 29.8 BP 124/66 Blood Pressure Location Lt brachial Position Sitting Pulse 66 Pulse Source Pulse Oximeter Pulse Oximetry (%) 95 Oxygen Delivery Method Room Air Intake Visit Reasons: 1M F/U Swelling of ankles Allergies cefotetan Allergy (Unknown, Verified 11/01/23 09:42) unknown cefuroxime [From Ceftin] Allergy (Unknown, Verified 11/01/23 09:42) Unknown ciprofloxacin [Cipro] Allergy (Unknown, Verified 11/01/23 09:42) unknown latex Allergy (Unknown, Verified 11/01/23 09:42) Unknown moxifloxacin [From Avelox] Allergy (Unknown, Verified 11/01/23 09:42) Unknown prochlorperazine [From Compazine] Allergy (Unknown, Verified 11/01/23 09:42) Unknown alendronate sodium Adverse Reaction (Intermediate, Verified 11/01/23 09:42) Stomach Upset Medication List - Last Reconciled 11/01/23 by Jeanne Killian MD Advair HFA 230-21 mcg/actuation (fluticasone propion-salmeterol) 2 puffs inhalation BID 90 days NS albuterol sulfate 90 mcg/actuation 2 puffs inhalation Q6H PRN 30 days amlodipine 5 mg PO DAILY budesonide-formoterol 160-4.5 mcg/actuation (Symbicort) 2 puffs inhalation Q12H 30 days fluticasone furoate-vilanterol 200-25 mcg/dose (Breo Ellipta) 1 inh inhalation DAILY 30 days furosemide 20 mg PO DAILY lisinopril 40 mg PO DAILY stnstjus-jxbgcrjio-TD 3.5-10,000-1 mg/mL-unit/mL-% 4 drps otic (ear) left Q8H 5 days omeprazole 40 mg PO DAILY propranolol 20 mg PO BID sertraline 50 mg PO DAILY Tobacco use date assessed: 11/01/23 Fall risk assessment: No Falls in past year Last assessed Fall Risk: 11/01/23 Dental Screening Dental Screen Date: 09/19/23 HPI 1M F/U Swelling of ankles HPI Details Patient presents for the follow-up of hypertension and chronic lower extremities edema. Patient stopped taking amlodipine but lower extremities edema persists. She has been taking 20 mg of furosemide without significant improvement. She has been sitting lot with her legs down. She denies shortness of breath PND orthopnea abdominal pain, change in bowel habits or urination She follows up with urology for bladder ca in remission and has been getting annual CT of the abdomen and pelvis. [facility] Medical History (Updated 11/01/23 @ 11:49 by Jeanne Killian MD) Bladder carcinoma Osteoporosis Annual physical exam Restrictive lung disease Pulmonary nodule Allergic rhinitis Atypical ductal hyperplasia of breast COPD (chronic obstructive pulmonary disease) Thrombocytopenia Aortic valve sclerosis Breast CA Depression Essential hypertension Portal hypertension Surgical History H/O colonoscopy History of esophagogastroduodenoscopy (EGD) History of surgery History of inguinal hernia repair Hx of cholecystectomy Family History Father No problems noted. Mother Colon cancer Sister Breast cancer Social History Housing: House Alcohol intake: current Alcohol intake frequency: holidays/special occasions only Patient Tobacco Use Status: Never used Tobacco e-Cigarette/Vaping Use: Never Used service: No Current occupational status: retired Cognitive needs: No Hearing needs: No Vision needs: Yes Questionnaire PHQ-9 Over the last 2 weeks, how often have you been bothered by any of the following problems? 1. Little interest or pleasure in doing things: not at all 2. Feeling down, depressed, or hopeless: not at all 3. Trouble falling or staying asleep, or sleeping too much: not at all 4. Feeling tired or having little energy: not at all 5. Poor appetite or overeating: not at all 6. Feeling bad about yourself - or that you are a failure or have let yourself or your family down: not at all 7. Trouble concentrating on things, such as reading the newspaper or watching television: not at all 8. Moving or speaking so slowly that other people could have noticed. Or the opposite - being so fidgety or restless that you have been moving around a lot more than usual: not at all 9. Thoughts that you would be better off or of hurting yourself in some way: not at all Total score: 0 Depression Screening Interpretation: Negative Depression Screening Done: Yes 62670 - PHQ-9 Billing: Yes Source: Developed by Drs. Alber Mcelroy, Rula Pantoja, Ranulfo Kirkpatrick and colleagues, with an educational laly from [employer]. Thrive Questionnaire Date Thrive assessed: 11/01/23 I am a: Patient What is your living situation today?: I have a steady place to live Within the past 12 months, did the food you bought not last and you didn't have the money to get more?: I choose not to answer this question Within the past 12 months, did you worry whether your food would run out before you got money to buy more?: I choose not to answer this question Do you have trouble paying for medicines?: Yes Do you have trouble getting transportation to medical appointments?: No Do you have trouble paying your heating and electricity bill?: No Do you have trouble taking care of your child, family member or friend?: I choose not to answer this question Do you have trouble with day-to-day activities such as bathing, preparing meals, shopping, managing finances, etc.?: No Are you currently unemployed and looking for a job?: No Are you interested in more education?: No Please select the resources that you would like help with: Paying for medicine Currently or been in a relationship where the following occur: No concerns reported THRIVE Score: 0 AUDIT C Alcohol Use Questionnaire (AUDIT-C) 1. How often do you have a drink containing alcohol?: Never 2. How many drinks containing alcohol do you have on a typical day when you are drinking?: 1 or 2 3. How often do you have six or more drinks on one occasion?: Never Total Score: 0 ELENA-7 AMB Questionnaire ELENA-7 Date ELENA - 7 assessed: 11/01/23 Feeling nervous, anxious, or on edge: 0 = Not at all Not being able to stop or control worryin = Not at all Worrying too much about different things: 0 = Not at all Trouble relaxin = Not at all Being so restless that it is hard to sit still: 0 = Not at all Becoming easily annoyed or irritable: 0 = Not at all Feeling afraid as if something awful might happen: 0 = Not at all Total ELENA-7 score (0-4 normal; 5-9 mild; 10-14 moderate; 15-21 severe): 0 Source: Developed by Drs. Alber Mcelroy, Rula Pantoja, Ranulfo Kirkpatrick and colleagues, with an educational laly from [employer]. Review of Systems Const All systems reviewed & are unremarkable except as noted in HPI and below Eyes Reports no additional complaints Card Reports no additional complaints Resp Reports no additional complaints GI Reports no additional complaints Reports no additional complaints Musc Reports no additional complaints Physical exam (Primary Care) Vital Signs: Last Vital Signs Pulse 66 11/01/23 09:32 BP 124/66 11/01/23 09:32 Pulse Ox 95 11/01/23 09:32 Oxygen Delivery Method Room Air 11/01/23 09:32 BMI result Body Mass Index 29.8 Tobacco/Smoking Status: Tobacco use Status Tobacco use date assessed 11/01/23 11/01/23 09:45 Patient Tobacco Use Status Never used Tobacco 11/01/23 09:32 e-Cigarette/Vaping Use Never Used 11/01/23 09:32 PHQ-9: PHQ-9 Score PHQ-9: Total score 0 11/01/23 09:49 Depression Screening Interpretation: Negative Thrive Assessment: Date of Thrive Assessment Date Thrive assessed 11/01/23 11/01/23 09:49 Currently or been in a relationship where the following occur: No concerns re ported Const General: no acute distress Eyes General: appearance normal, both eyes and all related structures Neck Neck: Yes no lymphadenopathy and Yes supple Resp Effort & Inspection: normal respiratory effort Auscultation: clear to auscultation bilaterally Cardio Rhythm: regular rhythm Heart sounds: S1 normal heart sound present and S2 normal heart sound present GI Inspection: Yes normal to inspection Palpation (GI): Soft to palpation Percussion: Yes normal to percussion Auscultation: normal bowel sounds Extrem Other: 2+ pitting edema left lower extremity and 1+ pitting edema right lower extremity no erythema, warmth or calf tenderness Assessment and Plan Assessment & Plan (1) Essential hypertension: Comment: amlodipine caused lower extremities edema Code(s): I10 - Essential (primary) hypertension Plan: Continue lisinopril check comprehensive panel (2) COPD (chronic obstructive pulmonary disease): Comment: She does have mild to moderate ASTHMA/ COPD . It is relatively stable, her main complaint is dyspnea on exertion. Also she complains about the co-payment for Symbicort. Code(s): J44.9 - Chronic obstructive pulmonary disease, unspecified Plan: Follow-up with pulmonology, patient has not been able to get inhaler due to high cost (3) DVT (deep venous thrombosis): Code(s): I82.409 - Acute embolism and thrombosis of unspecified deep veins of unspecified lower extremity Plan: Check left lower extremity Doppler to rule out DVT (4) Bladder carcinoma: Comment: f/u annually with Urology, Abd/pelvic CT 05/2023 [facility], s/p R nephrectomy, L kidney benign cysts, stable splenomegaly, no ascites Code(s): C67.9 - Malignant neoplasm of bladder, unspecified Plan: Follow-up with urology (5) Edema of lower extremity: Comment: Echo 08/04, nl EF, mod low flow , mild AR, moderate mitral valve calcifications, mild MR Code(s): R60.0 - Localized edema Plan: Increase furosemide to 40 mg a day follow-up in 1 month Orders: Orders Comprehensive Met. Panel Today I10 - Essential (primary) hypertension, J44.9 - Chronic obstructive pulmonary disease, unspecified US venous duplex LE RT Today I82.409 - Acute embolism and thrombosis of unspecified deep veins of unspecified lower extremity Complete Blood Count Auto Diff Today I10 - Essential (primary) hypertension, J44.9 - Chronic obstructive pulmonary disease, unspecified Medications: Changed From furosemide 20 mg PO DAILY 90 tabs 3RF To furosemide 40 mg (2 x 20 mg) PO DAILY 180 tabs 3RF Refilled lisinopril 40 mg PO DAILY 90 tabs 3RF Discontinued amlodipine Discontinued Reason: Doctor's Order 5 mg PO DAILY 90 tabs 1RF Advair HFA 230-21 mcg/actuation (fluticasone propion-salmeterol) administer with spacer Discontinued Reason: Doctor's Order 2 puffs inhalation BID 90 days 12 grams 0RF copd NS budesonide-formoterol 160-4.5 mcg/actuation (Symbicort) Discontinued Reason: Doctor's Order 2 puffs inhalation Q12H 30 days 10.2 grams 3RF asthma/copd J44.9 - Chronic obstructive pulmonary disease, unspecified, J98.4 - Other disorders of lung Coding Level of Care Code Est Pt Level 4 (18500) Diagnoses Essential hypertension I10 COPD (chronic obstructive pulmonary disease) J44.9 DVT (deep venous thrombosis) I82.409 Bladder carcinoma C67.9 Edema of lower extremity R60.0
== END 2023-11-01 11:09 | disposition home or self-care (01) ==
PROVIDERS: PCP Internal Medicine; Visit Provider Internal Medicine
DX: I10 Essential (primary) hypertension (principal); J44.9 Chronic obstructive pulmonary disease, unspecified; I82.409 Acute embolism and thrombosis of unspecified deep veins of unspecified lower extremity; C67.9 Malignant neoplasm of bladder, unspecified; R60.0 Localized edema
CPT/HCPCS: 99214

== ENCOUNTER 2023-11-01 10:50 | Outpatient (REF) | payer MEDICARE, SELFPAY ==
--- NOTE | ~2023-11-01 | US_ITS ---
EXAMINATION: US TRIPLEX LOWER EXTREMITY, RIGHT CLINICAL INFORMATION: Right leg edema. Evaluate for deep vein thrombosis. COMPARISON: None available. TECHNIQUE: Color-flow triplex imaging with spectral analysis and compression Doppler were performed on the right lower extremity. FINDINGS: Respiratory variation, normal compression and augmented flow are noted throughout the right lower extremity. The visualized common femoral vein, superficial femoral vein, profunda femoral vein, popliteal vein and midcalf peroneal and posterior tibial venous segments show no evidence of deep venous thrombosis. There is no Carcamo's cyst. US/US venous duplex LE RT IMPRESSION: No evidence of deep venous thrombosis involving the right lower extremity. Electronically signed by: Kamran Kearney MD 11/01/2023 12:34 PM EDT
== END 2023-11-01 10:51 | disposition home or self-care (01) ==
LOC: HO.HMGCX 10:50
PROVIDERS: PCP Internal Medicine; Visit Provider Internal Medicine
DX: M79.604 Pain in right leg (principal)
CPT/HCPCS: 93971

== ENCOUNTER 2023-12-02 11:10 | Outpatient (AMB) | payer MEDICARE, SELFPAY ==
[2023-12-02 11:40] VITALS: BP 126/70; PULSE 67; O2SAT 96; BMI 30.1
--- NOTE | 2023-12-02 11:40 | MHC.PC.OV ---
Vital Signs 12/02/23 11:40 Height 5 ft 3 in Weight 170 lb BMI 30.1 BP 126/70 Blood Pressure Location Rt brachial Position Sitting Pulse 67 Pulse Source Pulse Oximeter Pulse Oximetry (%) 96 Oxygen Delivery Method Room Air Intake Visit Reasons: 1 month follow up Allergies cefotetan Allergy (Unknown, Verified 12/02/23 11:40) unknown cefuroxime [From Ceftin] Allergy (Unknown, Verified 12/02/23 11:40) Unknown ciprofloxacin [Cipro] Allergy (Unknown, Verified 12/02/23 11:40) unknown latex Allergy (Unknown, Verified 12/02/23 11:40) Unknown moxifloxacin [From Avelox] Allergy (Unknown, Verified 12/02/23 11:40) Unknown prochlorperazine [From Compazine] Allergy (Unknown, Verified 12/02/23 11:40) Unknown alendronate sodium Adverse Reaction (Intermediate, Verified 12/02/23 11:40) Stomach Upset Medication List - Last Reconciled 12/02/23 by Jeanne Killian MD albuterol sulfate 90 mcg/actuation 2 puffs inhalation Q6H PRN 30 days fluticasone furoate-vilanterol 200-25 mcg/dose (Breo Ellipta) 1 inh inhalation DAILY 30 days furosemide 40 mg (2 x 20 mg) PO DAILY lisinopril 40 mg PO DAILY mkyjreux-zsljuiysh-VM 3.5-10,000-1 mg/mL-unit/mL-% 4 drps otic (ear) left Q8H 5 days omeprazole 40 mg PO DAILY propranolol 20 mg PO BID sertraline 50 mg PO DAILY Tobacco use date assessed: 12/02/23 Dental Screening Dental Screen Date: 09/19/23 HPI 1 month follow up HPI Details Patient presents for the follow-up on hypertension and lower extremity edema. There is a slight improvement in lower extremity edema on 40 mg of furosemide. PFSH Medical History Bladder carcinoma Osteoporosis Annual physical exam Restrictive lung disease Pulmonary nodule Allergic rhinitis Atypical ductal hyperplasia of breast COPD (chronic obstructive pulmonary disease) Thrombocytopenia Aortic valve sclerosis Breast CA Depression Essential hypertension Portal hypertension Surgical History H/O colonoscopy History of esophagogastroduodenoscopy (EGD) History of surgery History of inguinal hernia repair Hx of cholecystectomy Family History Father No problems noted. Mother Colon cancer Sister Breast cancer Social History Housing: House Alcohol intake: current Alcohol intake frequency: holidays/special occasions only Patient Tobacco Use Status: Never used Tobacco e-Cigarette/Vaping Use: Never Used service: No Current occupational status: retired Cognitive needs: No Hearing needs: No Vision needs: Yes Questionnaire Thrive Questionnaire Date Thrive assessed: 10/26/23 I am a: Patient What is your living situation today?: I have a steady place to live Within the past 12 months, did the food you bought not last and you didn't have the money to get more?: I choose not to answer this question Within the past 12 months, did you worry whether your food would run out before you got money to buy more?: I choose not to answer this question Do you have trouble paying for medicines?: Yes Do you have trouble getting transportation to medical appointments?: No Do you have trouble paying your heating and electricity bill?: No Do you have trouble taking care of your child, family member or friend?: I choose not to answer this question Do you have trouble with day-to-day activities such as bathing, preparing meals, shopping, managing finances, etc.?: No Are you currently unemployed and looking for a job?: No Are you interested in more education?: No Please select the resources that you would like help with: Paying for medicine Currently or been in a relationship where the following occur: No concerns reported THRIVE Score: 0 ELENA-7 AMB Questionnaire ELENA-7 Date ELENA - 7 assessed: 11/01/23 Source: Developed by Drs. Alber Mcelroy, Rula Pantoja, Ranulfo Kirkpatrick and colleagues, with an educational laly from [employer]. Review of Systems Const All systems reviewed & are unremarkable except as noted in HPI and below Eyes Reports no additional complaints ENT Reports no additional complaints Card Reports no additional complaints Resp Reports no additional complaints GI Reports no additional complaints Physical exam (Primary Care) Vital Signs: Last Vital Signs Pulse 67 12/02/23 11:40 BP 126/70 12/02/23 11:40 Pulse Ox 96 12/02/23 11:40 Oxygen Delivery Method Room Air 12/02/23 11:40 BMI result Body Mass Index 30.1 Tobacco/Smoking Status: Tobacco use Status Tobacco use date assessed 12/02/23 12/02/23 11:44 Patient Tobacco Use Status Never used Tobacco 12/02/23 11:44 e-Cigarette/Vaping Use Never Used 12/02/23 11:44 Thrive Assessment: Date of Thrive Assessment Date Thrive assessed 10/26/23 12/02/23 11:44 Currently or been in a relationship where the following occur: No concerns reported Const General: no acute distress HENMT Face and sinus: Yes normal facial exam Resp Effort & Inspection: normal respiratory effort Auscultation: clear to auscultation bilaterally Cardio Rhythm: regular rhythm Heart sounds: S1 normal heart sound present and S2 normal heart sound present Extrem Other: 2+ pitting edema bilaterally Assessment and Plan Assessment & Plan (1) Portal hypertension: Comment: Follow-up with GI with serial EGD, annual US no liver masses, splenomegaly 06/2023 Code(s): K76.6 - Portal hypertension Plan: Continue propranolol follow-up with GI (2) Edema of lower extremity: Comment: Echo 08/04, nl EF, mod low flow , mild AR, moderate mitral valve calcifications, mild MR Code(s): R60.0 - Localized edema Plan: Increase furosemide to 60 mg a day (3) Essential hypertension: Comment: amlodipine caused lower extremities edema Code(s): I10 - Essential (primary) hypertension Plan: Add hydralazine 25 mg twice a day to lisinopril and increase furosemide to 60 mg, check basic metabolic panel and follow-up in 1 month Orders: Orders Basic Metabolic Panel 1 Week K76.6 - Portal hypertension, R60.0 - Localized edema B Type Natriuretic Peptide 1 Week K76.6 - Portal hypertension, R60.0 - Localized edema Medications: New hydralazine 25 mg PO BID 60 tabs 1RF Changed From furosemide 40 mg (2 x 20 mg) PO DAILY 180 tabs 3RF To furosemide 60 mg (3 x 20 mg) PO DAILY 180 tabs 3RF Coding Level of Care Code Est Pt Level 3 (88360) Diagnoses Portal hypertension K76.6 Edema of lower extremity R60.0 Essential hypertension I10
== END 2023-12-02 12:29 | disposition home or self-care (01) ==
PROVIDERS: PCP Internal Medicine; Visit Provider Internal Medicine
DX: K76.6 Portal hypertension (principal); R60.0 Localized edema; I10 Essential (primary) hypertension

== ENCOUNTER → 2023-12-02 11:10 | Outpatient (BNVA) | payer MEDICARE, SELFPAY | PROVIDERS: PCP Internal Medicine; Visit Provider Internal Medicine | DX: K76.6 Portal hypertension (principal); R60.0 Localized edema | CPT/HCPCS: 99212 ==

== ENCOUNTER 2023-12-06 09:30 | Outpatient (REF) | payer MEDICARE, SELFPAY ==
[2023-12-06 13:14] LABS: MANUAL DIFF FLAG NO
[2023-12-06 13:34] LABS: Basophils Percent Auto 0.6 % (0-2); Eosinophils Absolute Auto 0.2 X10*3/uL (0.0-0.4); Hematocrit 34.5 % (37.0-47.0); Hemoglobin 11.7 g/dl (12.0-16.0); Imm Gran Abs Auto 0.02 X10*3/uL (0.00-0.03); Imm Gran Pct Auto 0.4 % (0.0-0.4); Lymphocytes Absolute Auto 1.1 X10*3/uL (1.2-4.9); Lymphocytes Percent Auto 20.8 % (20-40); Mean Corpuscular HGB Conc 33.9 g/dl (31.0-35.0); Mean Corpuscular Hemoglobin 31.8 pg (27.0-33.0); Mean Corpuscular Volume 93.8 fL (80.0-98.0); Mean Platelet Volume 10.2 fL (9.4-12.3); Monocytes Absolute Auto 0.4 X10*3/uL (0.1-1.2); Monocytes Percent Auto 6.7 % (2-11); Neutrophils Absolute Auto 3.7 x10*3/uL (2.0-8.3); Neutrophils Percent Auto 68.5 % (45-73); Platelet Count 125 X10*3/uL (160-400); Red Blood Count 3.68 X10*6/uL (4.20-5.50); Red Cell Distribution Width 13.8 % (11.0-16.0); White Blood Count 5.4 X10*3/uL (4.8-10.8)
[2023-12-06 13:37] LABS: B Type Natriuretic Peptide 488 pg/mL (<100)
[2023-12-06 14:02] LABS: Alanine Aminotransferase 14 U/L (0-31); Albumin Level 3.4 g/dL (3.5-5.0); Alkaline Phosphatase 91 U/L (39-117); Anion Gap 8 (12-20); Aspartate Amino Transferase 28 U/L (5-31); Bilirubin Total 0.9 mg/dL (0.0-1.0); Blood Urea Nitrogen 19 mg/dL (9-16); Calcium 8.6 mg/dL (8.4-10.2); Carbon Dioxide 28 mmol/L (22-29); Chloride 110 mmol/L (96-108); Estimated Glomerular Filt Rate > 60; Glucose Random 103 mg/dL (60-115); Potassium 4.4 mmol/L (3.3-5.1); Sodium 142 mmol/L (135-145); Total Protein 6.3 g/dL (6.5-8.0)
== END 2023-12-06 09:31 | disposition home or self-care (01) ==
LOC: HO.HMGCLDS 09:30
PROVIDERS: PCP Internal Medicine; Visit Provider Internal Medicine
DX: I10 Essential (primary) hypertension (principal); R60.0 Localized edema; K76.6 Portal hypertension
CPT/HCPCS: 36415; 80053; 83880; 85025

== ENCOUNTER 2024-01-02 09:43 | Outpatient (AMB) | payer MEDICARE, SELFPAY ==
[2024-01-02 09:49] VITALS: BP 130/74; PULSE 65; O2SAT 95; BMI 29.6
--- NOTE | 2024-01-02 09:49 | AM.OFFVISMDC ---
Intake Vital Signs 01/02/24 09:49 Height 5 ft 3 in Weight 167 lb BMI 29.6 BP 130/74 Blood Pressure Location Lt brachial Position Sitting Pulse 65 Pulse Source Pulse Oximeter Pulse Oximetry (%) 95 Oxygen Delivery Method Room Air Intake Visit Reasons: SWV G0439 Allergies cefotetan Allergy (Unknown, Verified 01/02/24 09:49) unknown cefuroxime [From Ceftin] Allergy (Unknown, Verified 01/02/24 09:49) Unknown ciprofloxacin [Cipro] Allergy (Unknown, Verified 01/02/24 09:49) unknown latex Allergy (Unknown, Verified 01/02/24 09:49) Unknown moxifloxacin [From Avelox] Allergy (Unknown, Verified 01/02/24 09:49) Unknown prochlorperazine [From Compazine] Allergy (Unknown, Verified 01/02/24 09:49) Unknown alendronate sodium Adverse Reaction (Intermediate, Verified 01/02/24 09:49) Stomach Upset amlodipine Adverse Reaction (Uncoded 01/02/24 10:24) Abdominal Pain HPI SWV G0439 HPI Details Initiated the conversation about Advanced Directives. Advanced Directives help? patients prepare for current and future decisions about their medical treatment? and place of care. Discussed with patient that it is a process where a patients? current condition and prognosis are reviewed, their wishes for information? regarding their illness are elicited, and likely medical dilemmas are presented? and options discussed. The form can be amended as needed, reviewed yearly and? make changes as needed IPPE/AWV ? year old presents? for her ? Annual? Wellness Visit, initial visit.? Medical / Social History Reviewed? Past Medical History ?Yes? . ? [place]? of Care / Care Team list updated ?Yes . ? Surgical/Hospitalization? History ?Yes . ? Current Medications? (including OTC and supplements) ?Yes . ? Family History ?Yes? . ? Tobacco? Control form ?Yes . ? AUDIT-C (Alcohol use) form? ?Yes . ? Illicit drug use in Social? History ?Yes . ? Current diagnosis of? depression? ?No ? Appropriate PHQ2/PHQ9? completed ?Yes . ? Data entered by ?Medical? Recruitment Advertising Manager and reviewed by provider ? Fall Risk ? Fall? History? Have you had any falls with? injury in the past year? ?No . ? Have you had two or more? falls in the past year? ?No . ? Fall Risk Assessment: ?No? falls in the past year . ? HRA filled out by? the patient, reviewed by Provider and scanned. ? IPPE/AWV ? Balance? [place]? ?Yes . ? Tandem? walk ?Yes . ? Walk and? Turn ?Yes . ? Rise from? sit to stand ?Yes . ?Vision? Corrective? lens ?Yes ? Vision? screen ? Up-to-date, has an appointment [] for vision? screening and glaucoma screening ?Hearing? Whisper? test ?pass .? Initiated the conversation about Advanced Directives. Advanced Directives help? patients prepare for current and future decisions about their medical treatment? and place of care. Discussed with patient that it is a process where a patients? current condition and prognosis are reviewed, their wishes for information? regarding their illness are elicited, and likely medical dilemmas are presented? and options discussed. The form can be amended as needed, reviewed yearly and? make changes as needed Written? Plan?Completed. See Patient? Documents. [facility] Medical History Bladder carcinoma Osteoporosis Annual physical exam Restrictive lung disease Pulmonary nodule Allergic rhinitis Atypical ductal hyperplasia of breast COPD (chronic obstructive pulmonary disease) Thrombocytopenia Aortic valve sclerosis Breast CA Depression Essential hypertension Portal hypertension Surgical History H/O colonoscopy History of esophagogastroduodenoscopy (EGD) History of surgery History of inguinal hernia repair Hx of cholecystectomy Family History Father No problems noted. Mother Colon cancer Sister Breast cancer Social History Housing: House Alcohol intake: current Alcohol intake frequency: holidays/special occasions only Patient Tobacco Use Status: Never used Tobacco e-Cigarette/Vaping Use: Never Used service: No Current occupational status: retired Cognitive needs: No Hearing needs: No Vision needs: Yes Questionnaire Medicare Wellness Checkup [age] What gender do you identify with?: female During the past 4 weeks, how much have you been bothered by emotional problems such as feeling anxious, depressed, irritable, sad or downhearted, and blue?: extremely During the past 4 weeks, has your physical & emotional health limited your social activities with family, friends, neighbors, or groups?: moderately During the past 4 weeks, how much bodily pain have you generally had?: no pain During the past 4 weeks, was someone available to help you if you needed & wanted help?: yes, quite a bit During the past 4 weeks, what was the hardest physical activity you could do for at least 2 minutes?: moderate Can you get to places out of walking distance without help? (For eg., can you travel alone on buses, taxis or drive your car?): Yes Can you go shopping for groceries or clothes without someone's help?: Yes Can you prepare your own meals?: Yes Can you do your housework without help?: Yes Because of any health problems, do you need the help of another person with your personal care needs such as eating, bathing, dressing or getting around the house?: No Can you handle your own money without help?: Yes During the past 4 weeks, how would you rate your health in general?: good During the past 4 weeks how have things been going for you?: pretty bad Are you having difficulties driving your car?: no Do you always fasten your seat belt when you are in a car?: yes, usually During past 4 weeks, have you been bothered by the following: never: Falling or dizzy when standing up, Sexual problems?, Trouble eating well?, Teeth or denture problems? and Problems using the telephone? and sometimes: Tiredness or fatigue? Have you fallen 2 or more times in the past year?: No Are you afraid of falling?: No Are you a smoker?: no During the past 4 weeks, how many drinks of wine, beer, or other alcoholic beverages did you have?: no alcohol at all Do you exercise for about 20 minutes 3 or more times a week?: no, I usually do not exercise this much Have you been given information to help with the following?: yes: Hazards in your house that might hurt you? and no: Keeping track of your medications? How often do you have trouble taking medicines the way you have been told to take them?: I always take medicine as prescribed How confident are you that you can control & manage most of your health problems?: very confident What is your race?: White Mini Mental State Exam (MMSE) Orientation What is the (year) (season) (date) (day) (month)?: year, season, date, day and month Where are we (state) (county) (town or city) (hospital) (floor)?: state, county, town or city, hospital/clinic and floor Registration Name of 3 unrelated objects clearly and slowly, then ask patient to repeat all 3 of them. (1st repeat determines score. Make sure they can repeat all three): object 1, object 2 and object 3 Attention & Calculation (CHOOSE ONE) Spell WORLD backwards (DLROW): 5 letters Recall Ask patient to repeat the 3 items from question #3.: object 1, object 2 and object 3 Language Show patient a wristwatch & ask what it is. Repeat for pencil.: watch and pencil Ask the patient to repeat the phrase 'No ifs, ands, or buts' after you.: correct Ask the patient to 'take a piece of paper with their right hand' 'fold paper in half' 'place paper on floor': take paper in right hand, fold paper in half and place paper on floor Print the sentence 'CLOSE YOUR EYES' on a piece. If patient actually closes eyes then score.: followed written direction Give patient a blank piece of paper & ask to write a sentence. Score if it contains a noun & verb.: sentence contains subject and verb Score Score: 29 PHQ-9 Over the last 2 weeks, how often have you been bothered by any of the following problems? 1. Little interest or pleasure in doing things: not at all 2. Feeling down, depressed, or hopeless: several days 3. Trouble falling or staying asleep, or sleeping too much: several days 4. Feeling tired or having little energy: several days 5. Poor appetite or overeating: not at all 6. Feeling bad about yourself - or that you are a failure or have let yourself or your family down: not at all 7. Trouble concentrating on things, such as reading the newspaper or watching television: not at all 8. Moving or speaking so slowly that other people could have noticed. Or the opposite - being so fidgety or restless that you have been moving around a lot more than usual: not at all 9. Thoughts that you would be better off or of hurting yourself in some way: not at all Total score: 3 Depression Screening Interpretation: Negative Depression Screening Done: Yes 90186 - PHQ-9 Billing: Yes Source: Developed by Drs. Alber Mcelroy, Rula Pantoja, Ranulfo Kirkpatrick and colleagues, with an educational laly from [employer]. Review of Systems Const All systems reviewed & are unremarkable except as noted in HPI and below Eyes Reports no additional complaints ENT Reports no additional complaints Card Reports no additional complaints Resp Reports no additional complaints GI Reports no additional complaints Reports no additional complaints Physical Exam Vital Signs: Last Vital Signs Pulse 65 01/02/24 09:49 BP 130/74 01/02/24 09:49 Pulse Ox 95 01/02/24 09:49 Oxygen Delivery Method Room Air 01/02/24 09:49 BMI result Body Mass Index 29.6 Const General: no acute distress HEENT Head: Yes normal to inspection Ears: hearing grossly normal bilaterally Eyes General: appearance normal, both eyes and all related structures Resp Effort & Inspection: normal respiratory effort Auscultation: crackles and diminished lung sounds Cardio Rhythm: regular rhythm Heart sounds: S1 normal heart sound present and S2 normal heart sound present GI Inspection: Yes normal to inspection Palpation (GI): Soft to palpation Percussion: Yes normal to percussion Auscultation: normal bowel sounds Extrem Other: +2 pitting edema bilaterally Assessment & Plan Assessment & Plan (1) Essential hypertension: Comment: amlodipine caused lower extremities edema Code(s): I10 - Essential (primary) hypertension Plan: Blood pressure still elevated, spironolactone 50 mg daily will be added basic metabolic panel checked in 1 week. Patient was advised to increase hydralazine a half a tablet of 25 mg 2 3 times a day. She had a headache when taking 25 mg twice a day, continue lisinopril and propranolol (2) COPD (chronic obstructive pulmonary disease): Comment: on Breo Code(s): J44.9 - Chronic obstructive pulmonary disease, unspecified Plan: Continue Breo (3) Asthma: Comment: controlled on Breo Code(s): J45.909 - Unspecified asthma, uncomplicated Plan: Continue Breo and albuterol p.r.n. (4) Edema of lower extremity: Comment: Echo 08/04, nl EF, mod low flow , mild AR, moderate mitral valve calcifications, mild MR Code(s): R60.0 - Localized edema Plan: Continue 60 mg of furosemide and add spironolactone 50 mg, check basic metabolic panel in 1 week (5) Bladder carcinoma: Comment: f/u annually with Urology, Abd/pelvic CT 05/2023 [facility], s/p R nephrectomy, L kidney benign cysts, stable splenomegaly, no ascites Code(s): C67.9 - Malignant neoplasm of bladder, unspecified Plan: Follow-up with nephrology (6) Osteoporosis: Comment: DEXA 07/03, T SCORE -3.8 hip, took Fosamax for 5 years but stopped > 5 years, Fosamax caused stomach upset , Prolia not covered by the insurance, 1st Reclast inf 05/07 Code(s): M81.0 - Age-related osteoporosis without current pathological fracture Plan: Continue vitamin-D and regular exercise (7) Annual physical exam: Code(s): Z00.00 - Encounter for general adult medical examination without abnormal findings Plan: Well-balanced diet regular physical activity discussed with the patient (8) Portal hypertension: Comment: Follow-up with GI with serial EGD, annual US no liver masses, splenomegaly 06/2023 Code(s): K76.6 - Portal hypertension Plan: Follow-up with GI on propranolol Orders: Orders Basic Metabolic Panel 1 Week I10 - Essential (primary) hypertension Medications: New spironolactone 50 mg PO DAILY 30 tabs 0RF Quality Reporting (2019) Depression/Bipolar (159/160/161/177) PHQ-9: Total score: 3 Coding Level of Care Code Medicare Subsequent (G0439) Diagnoses Essential hypertension I10 COPD (chronic obstructive pulmonary disease) J44.9 Asthma J45.909 Edema of lower extremity R60.0 Bladder carcinoma C67.9 Osteoporosis M81.0 Annual physical exam Z00.00 Portal hypertension K76.6 CPT Codes Advance Care Planning - Advance Care Planning discussion: On file, no changes ([id number]) Advance Care Planning - Time spent: 1-15 minutes, on File ([id number]) Advance Care Planning Advance Care Planning discussion: On file, no changes Forms completed: Health Care Proxy Time spent: 1-15 minutes, on File Did not discuss due to Cultural/Spiritual beliefs: Yes
== END 2024-01-02 13:19 | disposition home or self-care (01) ==
PROVIDERS: PCP Internal Medicine; Visit Provider Internal Medicine
DX: Z00.00 Encounter for general adult medical examination without abnormal findings (principal); J44.9 Chronic obstructive pulmonary disease, unspecified; K76.6 Portal hypertension; C67.9 Malignant neoplasm of bladder, unspecified; I10 Essential (primary) hypertension; J45.909 Unspecified asthma, uncomplicated; R60.0 Localized edema; M81.0 Age-related osteoporosis without current pathological fracture

== ENCOUNTER → 2024-01-02 09:43 | Outpatient (BNVA) | payer MEDICARE, SELFPAY | PROVIDERS: PCP Internal Medicine; Visit Provider Internal Medicine ==

== ENCOUNTER 2024-01-10 07:52 | Outpatient (REF) | payer MEDICARE, SELFPAY ==
[2024-01-10 11:08] LABS: Anion Gap 13 (12-20); Blood Urea Nitrogen 17 mg/dL (9-16); Calcium 8.7 mg/dL (8.4-10.2); Carbon Dioxide 27 mmol/L (22-29); Chloride 108 mmol/L (96-108); Estimated Glomerular Filt Rate 46; Glucose Random 110 mg/dL (60-115); Sodium 144 mmol/L (135-145)
== END 2024-01-10 07:53 | disposition home or self-care (01) ==
LOC: HO.HMGCLDS 07:52
PROVIDERS: PCP Internal Medicine; Visit Provider Internal Medicine
DX: I10 Essential (primary) hypertension (principal)
CPT/HCPCS: 36415; 80048

== ENCOUNTER 2024-01-23 10:12 | Outpatient (AMB) | payer MEDICARE, SELFPAY ==
[2024-01-23 10:16] VITALS: BP 118/76; PULSE 60; O2SAT 96; BMI 29.9
--- NOTE | 2024-01-23 10:16 | MHC.OFFVIS ---
Vital Signs 01/23/24 10:16 Height 5 ft 3 in Weight 168 lb 10.458 oz BMI 29.9 BP 118/76 Blood Pressure Location Lt brachial Position Sitting Pulse 60 Pulse Source Doppler Pulse Oximetry (%) 96 Oxygen Delivery Method Room Air Intake Visit Reasons: Bronchitis Intake Note: Patient is here for routine follow up, no complaints Allergies cefotetan Allergy (Unknown, Verified 01/23/24 10:23) unknown cefuroxime [From Ceftin] Allergy (Unknown, Verified 01/23/24 10:23) Unknown ciprofloxacin [Cipro] Allergy (Unknown, Verified 01/23/24 10:23) unknown latex Allergy (Unknown, Verified 01/23/24 10:23) Unknown moxifloxacin [From Avelox] Allergy (Unknown, Verified 01/23/24 10:23) Unknown prochlorperazine [From Compazine] Allergy (Unknown, Verified 01/23/24 10:23) Unknown alendronate sodium Adverse Reaction (Intermediate, Verified 01/23/24 10:23) Stomach Upset amlodipine Adverse Reaction (Uncoded 01/23/24 10:23) Abdominal Pain Medication List - Last Reconciled 01/23/24 by Dinorah Stewart MD albuterol sulfate 90 mcg/actuation 2 puffs inhalation Q6H PRN 30 days fluticasone furoate-vilanterol 200-25 mcg/dose (Breo Ellipta) 1 inh inhalation DAILY 30 days furosemide 60 mg (3 x 20 mg) PO DAILY hydralazine 25 mg PO BID lisinopril 40 mg PO DAILY xexorrhp-vrzojafnx-RY 3.5-10,000-1 mg/mL-unit/mL-% 4 drps otic (ear) left Q8H 5 days omeprazole 40 mg PO DAILY propranolol 20 mg PO BID sertraline 50 mg PO DAILY spironolactone 50 mg PO DAILY Do you need a note to return to daycare/school/sports/work: No HPI HPI Bronchitis: Details: 73 years old very pleasant female comes after 6 months for follow-up She has been doing very well without any acute exacerbation. Only occasional bouts of cough. Uses rescue inhaler once or twice a month. Continues to use her Breo every day regularly . She is up to date with her vaccines. [facility] Medical History Bladder carcinoma Osteoporosis Annual physical exam Restrictive lung disease Pulmonary nodule Allergic rhinitis Atypical ductal hyperplasia of breast COPD (chronic obstructive pulmonary disease) Thrombocytopenia Aortic valve sclerosis Breast CA Depression Essential hypertension Portal hypertension Surgical History H/O colonoscopy History of esophagogastroduodenoscopy (EGD) History of surgery History of inguinal hernia repair Hx of cholecystectomy Family History Father No problems noted. Mother Colon cancer Sister Breast cancer Social History Housing: House Alcohol intake: current Alcohol intake frequency: holidays/special occasions only Patient Tobacco Use Status: Never used Tobacco e-Cigarette/Vaping Use: Never Used service: No Current occupational status: retired Cognitive needs: No Hearing needs: No Vision needs: Yes Review of Systems Const All systems reviewed & are unremarkable except as noted in HPI and below Eyes Reports no additional complaints ENT Reports nasal congestion (Mild intermittent) Card Denies chest pain, Denies irregular heart rhythm and Denies leg edema Resp Reports as per HPI GI Reports heartburn (Controlled with omeprazole) Reports no additional complaints Musc Reports no additional complaints Skin/Breast Reports system reviewed and no additional complaints, except as documented Neuro Reports no additional complaints Psych Reports depression (Mild well controlled) Endo Reports no additional complaints Physical Exam Vital Signs: Last Vital Signs Pulse 60 01/23/24 10:16 BP 118/76 01/23/24 10:16 Pulse Ox 96 01/23/24 10:16 Oxygen Delivery Method Room Air 01/23/24 10:16 BMI result Body Mass Index 29.9 Const General: comfortable, no acute distress, alert and awake Orientation/consciousness: patient oriented x3 HEENT Head: Yes normal to inspection General nose exam: No nasal polyps present, No nasal discharge present and Other nasal findings present (HAS MILD NASAL CONGESTION, ALSO HAS A FEW SUPERFICIAL ULCERATED AREAS ) Face and sinus: Yes sinuses nontender Mouth: oropharynx normal Throat: Yes posterior oropharynx normal Eyes General: appearance normal, both eyes and all related structures Neck Neck: Yes normal visual inspection, Yes no lymphadenopathy, Yes trachea midline and Yes no JVD Thyroid: Thyroid normal Chest Chest palpation & inspection: normal inspection of the chest, normal palpation of entire chest wall and no tenderness Resp Other: Percussion note is resonant, she has good breath sounds on both sides, slightly prolonged expiratory phase. No audible wheezes rhonchi or crepitations. Cardio Palpation: normal PMI Rate: regular rate Rhythm: regular rhythm Heart sounds: no gallops and no murmurs Peripheral pulses: Peripheral pulses 2+ throughout GI Palpation (GI): Soft to palpation, nontender, No hepatosplenomegaly present and no masses Auscultation: normal bowel sounds Back/Spine/Pelvis Thoracic/Lumbar Spine: thoracic and lumbar spine normal to inspection Skin General skin exam: no rashes or lesions noted Neuro General: patient oriented x3 and no focal motor deficits Cranial nerves: Yes CN's II-XII intact bilaterally Extrem General: Yes normal to inspection, Yes no clubbing, cyanosis or edema and Yes no calf tenderness Psych Appearance: grossly normal and well kempt Speech and movement: Normal speech and movement present Assessment & Plan Assessment & Plan (1) COPD (chronic obstructive pulmonary disease): Comment: Has moderately severe chronic obstructive pulmonary disease which remains very stable and controlled, She has had no acute infection or acute exacerbations in the last 6 months. Code(s): J44.9 - Chronic obstructive pulmonary disease, unspecified Category: Medical Plan: Advised to continue using Breo 200-25, 1 inhalation daily. Albuterol HFA 1 or 2 puffs Q 4-6 hours only p.r.n.. (2) Allergic rhinitis: Comment: VERY MILD, INTERMITTENT. Code(s): J30.9 - Allergic rhinitis, unspecified Category: Medical Plan: No active treatment needed, may use OTC antihistaminics p.r.n. (3) Restrictive lung disease: Comment: PATIENT WAS EXPLAINED THAT SHE HAS RESTRICTIVE DISORDER, WHICH MAY BE DUE TO BEING OVERWEIGHT, or MILD DEGREE OF INTERSTITIAL LUNG DISEASE. Code(s): J98.4 - Other disorders of lung Category: Medical Plan: Watch weight and try to keep it under control. Do deep breathing exercises 2-3 times every day Coding Level of Care Code Est Pt Level 3 (37074) Diagnoses COPD (chronic obstructive pulmonary disease) J44.9 Allergic rhinitis J30.9 Restrictive lung disease J98.4
== END 2024-01-23 10:29 | disposition home or self-care (01) ==
PROVIDERS: PCP Internal Medicine; Visit Provider Internal Medicine
DX: J44.9 Chronic obstructive pulmonary disease, unspecified (principal); J30.9 Allergic rhinitis, unspecified; J98.4 Other disorders of lung
CPT/HCPCS: 99213

== ENCOUNTER → 2024-01-23 10:12 | Outpatient (BNVA) | payer MEDICARE, SELFPAY | PROVIDERS: PCP Internal Medicine; Visit Provider Internal Medicine | DX: J44.9 Chronic obstructive pulmonary disease, unspecified (principal); J98.4 Other disorders of lung; J30.9 Allergic rhinitis, unspecified; R91.1 Solitary pulmonary nodule | CPT/HCPCS: 99212 ==

== ENCOUNTER 2024-02-01 11:32 | Outpatient (AMB) | payer MEDICARE, SELFPAY ==
[2024-02-01 11:33] VITALS: BP 132/80; PULSE 56; O2SAT 98; BMI 29.6
--- NOTE | 2024-02-01 11:33 | A.OFFPC_ITS ---
Vital Signs 02/01/24 11:33 Height 5 ft 3 in Weight 167 lb BMI 29.6 BP 132/80 Blood Pressure Location Lt brachial Position Sitting Pulse 56 Pulse Source Pulse Oximeter Pulse Oximetry (%) 98 Oxygen Delivery Method Room Air Intake Visit Reasons: Resched from 01/23: 3 week follow up Intake Note: Pt is here today for a follow up visit. Allergies cefotetan Allergy (Unknown, Verified 02/01/24 11:33) unknown cefuroxime [From Ceftin] Allergy (Unknown, Verified 02/01/24 11:33) Unknown ciprofloxacin [Cipro] Allergy (Unknown, Verified 02/01/24 11:33) unknown latex Allergy (Unknown, Verified 02/01/24 11:33) Unknown moxifloxacin [From Avelox] Allergy (Unknown, Verified 02/01/24 11:33) Unknown prochlorperazine [From Compazine] Allergy (Unknown, Verified 02/01/24 11:33) Unknown alendronate sodium Adverse Reaction (Intermediate, Verified 02/01/24 11:33) Stomach Upset amlodipine Adverse Reaction (Uncoded 02/01/24 11:33) Abdominal Pain Medication List - Last Reconciled 02/01/24 by Jeanne Killian MD albuterol sulfate 90 mcg/actuation 2 puffs inhalation Q6H PRN 30 days fluticasone furoate-vilanterol 200-25 mcg/dose (Breo Ellipta) 1 inh inhalation DAILY 30 days furosemide 60 mg (3 x 20 mg) PO DAILY hydralazine 1/2 orally 3 times a day; 1/2 tab lisinopril 40 mg PO DAILY hcllkdna-ydvfozimj-UT 3.5-10,000-1 mg/mL-unit/mL-% 4 drps otic (ear) left Q8H 5 days omeprazole 40 mg PO DAILY propranolol 20 mg PO BID sertraline 50 mg PO DAILY spironolactone 50 mg PO DAILY Tobacco use date assessed: 02/01/24 Dental Screening Dental Screen Date: 09/19/23 HPI Resched from 01/23: 3 week follow up HPI Details Patient presents for the follow-up on hypertension, COPD/interstitial lung disease, chronic kidney disease stage 3, heart failure with preserved ejection fraction, status post bladder CA and right nephrectomy, follow-up with urology annually. [facility] Medical History Bladder carcinoma Osteoporosis Annual physical exam Restrictive lung disease Pulmonary nodule Allergic rhinitis Atypical ductal hyperplasia of breast COPD (chronic obstructive pulmonary disease) Thrombocytopenia Aortic valve sclerosis Breast CA Depression Essential hypertension Portal hypertension Surgical History H/O colonoscopy History of esophagogastroduodenoscopy (EGD) History of surgery History of inguinal hernia repair Hx of cholecystectomy Family History Father No problems noted. Mother Colon cancer Sister Breast cancer Social History Housing: House Alcohol intake: current Alcohol intake frequency: holidays/special occasions only Patient Tobacco Use Status: Never used Tobacco e-Cigarette/Vaping Use: Never Used service: No Current occupational status: retired Cognitive needs: No Hearing needs: No Vision needs: Yes Questionnaire Thrive Questionnaire Date Thrive assessed: 10/26/23 I am a: Patient What is your living situation today?: I have a steady place to live Within the past 12 months, did the food you bought not last and you didn't have the money to get more?: I choose not to answer this question Within the past 12 months, did you worry whether your food would run out before you got money to buy more?: I choose not to answer this question Do you have trouble paying for medicines?: Yes Do you have trouble getting transportation to medical appointments?: No Do you have trouble paying your heating and electricity bill?: No Do you have trouble taking care of your child, family member or friend?: I choose not to answer this question Do you have trouble with day-to-day activities such as bathing, preparing meals, shopping, managing finances, etc.?: No Are you currently unemployed and looking for a job?: No Are you interested in more education?: No Please select the resources that you would like help with: Paying for medicine Currently or been in a relationship where the following occur: No concerns reported THRIVE Score: 0 ELENA-7 AMB Questionnaire ELENA-7 Date ELENA - 7 assessed: 11/01/23 Source: Developed by Drs. Alber L. NaviRula mcbride, Ranulfo Kirkpatrick and colleagues, with an educational laly from [employer]. Review of Systems Const All systems reviewed & are unremarkable except as noted in HPI and below ENT Reports no additional complaints Card Reports no additional complaints Resp Reports no additional complaints GI Reports no additional complaints Reports no additional complaints Physical exam (Primary Care) Vital Signs: Last Vital Signs Pulse 56 02/01/24 11:33 BP 132/80 02/01/24 11:33 Pulse Ox 98 02/01/24 11:33 Oxygen Delivery Method Room Air 02/01/24 11:33 BMI result Body Mass Index 29.6 Tobacco/Smoking Status: Tobacco use Status Tobacco use date assessed 02/01/24 02/01/24 11:34 Patient Tobacco Use Status Never used Tobacco 02/01/24 11:34 e-Cigarette/Vaping Use Never Used 02/01/24 11:34 Thrive Assessment: Date of Thrive Assessment Date Thrive assessed 10/26/23 02/01/24 11:34 Currently or been in a relationship where the following occur: No concerns reported Const General: no acute distress HENMT Head: Yes normal to inspection Resp Effort & Inspection: normal respiratory effort Auscultation: crackles bilateral in the lower lung pham and diminished lung sounds Cardio Rhythm: regular rhythm Heart sounds: S1 normal heart sound present and S2 normal heart sound present GI Inspection: Yes normal to inspection Palpation (GI): Soft to palpation Extrem Other: 2+ pitting edema bilaterally Coding Level of Care Code Est Pt Level 4 (73585) Complex EM visit Add On G2211 Diagnoses Essential hypertension I10 Edema of lower extremity R60.0 (HFpEF) heart failure with preserved ejection fraction I50.30 Assessment & Plan Assessment & Plan (1) Essential hypertension: Comment: amlodipine caused lower extremities edema Code(s): I10 - Essential (primary) hypertension Category: Medical Plan: Continue current medications (2) Edema of lower extremity: Comment: Echo 08/04, nl EF, mod , mild AR, moderate mitral valve calcifications, mild MR Code(s): R60.0 - Localized edema Category: Medical Plan: Continue diuretics and compression stockings (3) (HFpEF) heart failure with preserved ejection fraction: Comment: Echo 07/2023,EF 65%, severe diastolic dysfunction, mod , mild AR, mild MR, moderate mitral of calcifications, normal pulmonary pressure Code(s): I50.30 - Unspecified diastolic (congestive) heart failure Category: Medical Plan: Continue furosemide spironolactone lisinopril and beta carlos, add dapagliflozin, follow-up in 6 weeks Orders: Orders Comprehensive Met. Panel 6 Weeks I10 - Essential (primary) hypertension, I50.30 - Unspecified diastolic (congestive) heart failure, J45.909 - Unspecified asthma, uncomplicated, R60.0 - Localized edema Complete Blood Count Auto Diff 6 Weeks I10 - Essential (primary) hypertension, I50.30 - Unspecified diastolic (congestive) heart failure, J45.909 - Unspecified asthma, uncomplicated, R60.0 - Localized edema B Type Natriuretic Peptide 6 Weeks I10 - Essential (primary) hypertension, I50.30 - Unspecified diastolic (congestive) heart failure, J45.909 - Unspecified asthma, uncomplicated, R60.0 - Localized edema Medications: New dapagliflozin propanediol 5 mg PO DAILY 90 tabs 0RF Refilled spironolactone 50 mg PO DAILY 90 tabs 1RF sertraline 50 mg PO DAILY 90 tabs 3RF
== END 2024-02-01 14:17 | disposition home or self-care (01) ==
PROVIDERS: PCP Internal Medicine; Visit Provider Internal Medicine
DX: I10 Essential (primary) hypertension (principal); R60.0 Localized edema; I50.30 Unspecified diastolic (congestive) heart failure

== ENCOUNTER → 2024-02-01 11:32 | Outpatient (BNVA) | payer MEDICARE, SELFPAY | PROVIDERS: PCP Internal Medicine; Visit Provider Internal Medicine | DX: R60.0 Localized edema (principal); I11.0 Hypertensive heart disease with heart failure; I50.30 Unspecified diastolic (congestive) heart failure | CPT/HCPCS: 99212 ==

== ENCOUNTER 2024-03-16 09:34 | Outpatient (REF) | payer MEDICARE, SELFPAY ==
--- OUTSIDE RECORDS SUMMARY | 2024-03-16 10:17 | XMS_ITS | Patient Health Record ---
[facility] Address [address] [place] [address] Care Team Providers Care Fisheries Enforcement Officer Name Role Phone Jeanne Killian MD Primary Care Provider Unavaila ble Black, Tessa Unavailable [phone] Allergies Allergen (clinical drug ingredient) Drug/Non Drug Allergy documented on EMR Reaction Allergy Type Onset Date Status analox (uncoded) Unknown Allergy Act troy Ceftin light headed Drug Allergy Acti ve ciprofloxacin Cipro Unknown Drug Allergy Act troy alendronate Fosamax Unknown Drug Allergy Activ e Keflex light headed Drug Allergy Acti ve Levaquin Unknown Drug Allergy Active acetaminophen Tylenol Unknown Drug Allergy Act troy Compazine Unknown Drug Allergy Active Adhesive rash, blisters Allergy Activ e codeine Codeine diarhea Drug Allergy Active Reason For Referral No Information Medications Medication SIG (Take, Route, Frequency, Duration) Notes Start Date End Date Status Furosemide 20 MG 1 tablet Orally Once a day for 30 day(s) Active Propranolol HCl 20 MG 1 tablet Orally On ce a day for 30 day(s) Active Sertraline HCl 50 MG 1 tablet Orally Onc e a day for 30 day(s) Active Lisinopril 30 MG 1 tablet Orally Once a day for 30 day(s) Active Omeprazole 20 MG 1 capsule 30 minutes before morning meal Orally Once a day for 30 day(s) Active Flovent Diskus 100 MCG/ACT 1 puff Inhala tion Twice a day Active ProAir HFA Active Social History Tobacco Use: Social History Observation Description Date Details (start date - stop date) Never Smoker NA - NA Tobacco Use/Smoking Question Answer Notes Are you a: nonsmoker Additional Findings: Tobacco Non-User Current no n-smoker Alcohol Screen Question Answer Notes Did you have a drink containing alcohol in the p ast year? No Points 0 Interpretation Negative Tobacco use other than smoking: Question Answer Notes Are you an other tobacco user? No Problems Problem Type SNOMED Code ICD Code Onset Dates Problem Status W/U Status Risk Notes Problem Acquired hammer toe of right foot (3592870517795376) Other hammer toe(s) (acquired), right foot (M20.41) Active confirmed Problem Acquired hammer toe of left foot (7250046000390920) Other hammer toe(s) (acquired), left foot (M20.42) Active confirmed Problem 091772282354446 Hallux valgus (acquired), left foot (M20.12) Active confirmed Problem 847962552601847 Hallux valgus (acquired), right foot (M20.11) Active confirmed Problem Localized, primary osteoarthritis of the ankle and/or foot (225717217) Osteoarthritis of right ankle and foot (M19.071) Active confirmed Problem Localized, primary osteoarthritis of the ankle and/or foot (068994298) Osteoarthritis of left ankle and foot (M19.072) Active confirmed Plan Of Treatment No Information Insurance Providers Payer Name Payer Address Payer Phone Subscriber Number Group Number Insured Name Patient Relationship to Insured Coverage Start Date Coverage End Date Medicare National Govt [employer] [facility] [address] [place] [address] [id number] Nayeli Fofana Self - patient is the insured Med[employer] [facility] [address] [place] [address] [phone] [id number] Nayeli Fofana Self - patient is the insured Medical (General) History Medical History History ICD Code Arthritis asthma Gall bladder problems High blood pressure Kidney disease Liver disease Osteoporosis Measles Mumps Chicken pox Transfusions Congenitive Hepatic Fibrosis Surgical History Surgery Date(Month/Year) Breast Surgery x2 1978,2020 kidney surgery 2016 gall bladder 2013 hernia
--- OUTSIDE RECORDS SUMMARY | 2024-03-16 10:17 | XMS_ITS | Data Portability ---
Author Organization [facility] [address] Address [address] [place] [address] Care Team Providers Care Waste Reclaimer Name Role Phone SARANATElizabethLUCILLE Primary Care Provider Assessment No assessment recorded. Plan of Treatment Reminders Order Date Submit Date Provider Last Modified By Organization Details Last Modified Time Details Appointments None recorded. Lab None recorded. Referral None recorded. Procedures None recorded. Surgeries None recorded. Imaging None recorded. Medication Orders doxycycline hyclate 100 mg tablet 2022 023 [facility] [employer] #[id number], [address], [place], [id number], 11:56:50 benzonatate 200 mg capsule 2022 023 [facility] [employer] [facility][id number], [address], [place], [phone], 3 11:56:50 Patient TargetsNo targets recorded. Patient Instructions Encounter Date Encounter Id Patient Instructions Last Modified By Organization Details Last Modified Time 09/11/2022 [id number] cough: care instructions [email or web address] Not available 09/11/2022 11:56:39 You are being treated for a cough that is most like related to a viral infection. Currently your exam does not suggest anything worrisome like pneumonia or a bacterial infection in your lungs. You do have wheezing. The following are my recommendations to help you with your symptoms and recovery. 1. Take Ibuprofen or Tylenol if you do not have any allergies to these medications. If you take a blood thinner you should not take NSAIDS like Ibuprofen. These medication will help with the inflammation in your respiratory tract which should help the cough. 2. Do not take any decongestants at this time because this will dry out that tract too much. If you have a lot of nasal congestion you can try nasal decongestants, but I would not take them more than 5 days. 3. Use a humidifier or add a cup of water by your bed. Sometimes if our sleeping environment is too dry this can lead to cough 4. Salt Water Gargles 5. Saline nasal spray is helpful. I would be seen again if you develop any of the following. 1. Cough last longer than 3 weeks - and has not worsened 2. You develop a thick productive cough 3. Develop shortness of breath or wheezing 4. Develop achy feel or discomfort in a specific chest location 5. Fever > 100.5 I would go immediately to the Emergency Room if you develop: 1. Chest Pain 2. Severe Shortness of breath 3. Coughing up Blood. Most coughs will resolve on their own without any intervention in 3 weeks. If they last longer we need to evaluate and rule out some other condition like Acid Reflux, or lung pathology. Thank you for using [facility] today - please don't hesitate to contact up or return to see if you have any questions or concerns. [email or web address] Not available 09/11/2022 11:55:42 Reason for Referral None Reported. Problems Name Problem SNOMED Code Status Onset Date Resolution Date Notes Provider Name and Address Organization Details Recorded Time Congenital hepatic fibrosis 10195442 Active 2022 Allie richter PA - [facility] 3 11:21:56 Malignant neoplasm of urinary bladder 027280117 Active 2022 Allie richter PA - [facility] 3 11:22:06 Hypertensive disorder 91580163 Active 2022 Allie richter PA - [facility] 3 11:24:17 Environmental allergy 412785184 Active 2022 GINI ISBELL [facility] [place], [address] [facility] PA - [facility] 3 11:52:00 Notes:low platelets ground g lass Problem Notes None recorded. Medical Equipment None Reported. Allergies Allergen ID Allergen Name Allergen Category Reaction Reaction Severity Criticality Documentation Date Start Date Code Code System Note Provider Name and Address Organization Details Recorded Time 524742 Compazine medicatio n Not available Not available Not available 09/11/2022 60481 6 RxNorm Allie Galeana null, PA - [facility] 3 11:19:10 953543 Fosamax medicatio n Not available Not available Not available 09/11/2022 71133 5 RxNorm Allie Galeana null, PA - [facility] 3 11:19:22 381757 Cipro medicatio n Not available Not available Not available 09/11/2022 97911 3 RxNorm Allie Galeana null, PA - [facility] 3 11:19:29 468047 Ceftin medicatio n Not available Not available Not available 09/11/2022 74364 6 RxNorm Allie Galeana null, PA - [facility] 3 11:19:35 Medications Name Sig Start Date Stop Date Status Note LastModified by Organization Details LastModified Time benzonatate 200 mg capsule Take 1 capsule 3 times a day by oral route for 10 days. 2022 active Not Available Not Available Not Avai lable doxycycline hyclate 100 mg tablet Take 1 tablet twice a day by oral route for 7 days. 2022 active Not Available Not Available Not Avai lable sertraline active Not Available Not Av ailable Not Available omeprazole active Not Available Not Av ailable Not Available propranolol active Not Available Not A vailable Not Available furosemide active Not Available Not Av ailable Not Available lisinopril active Not Available Not Av ailable Not Available Vitamin D3 active Not Available Not Av ailable Not Available multivitamin active Not Available Not Available Not Available Flovent Diskus active Not Available No t Available Not Available Probiotic active Not Available Not Isabel ilable Not Available Proair Digihaler active Not Available Not Available No t Available elderberry fruit 350 mg capsule Take by oral route. active Not Available Not Available No t Available Vitals Date Recorded Body height Body mass index (BMI) Body weight Respiratory rate Oxygen saturation Oxygen saturation in Arterial blood by Pulse oximetry Heart rate Body temperature Systolic blood pressure Diastolic blood pressure Provider Name and Address Organization Details Last Updated DateTime 3 160.02 cm 29.8 kg/m2 49498.5 2 g 20 /min 96 % 96 % 65 /min 98.5 [degF] 164 mm[Hg] 88 mm[Hg] Allie Galeana PA - [facility] 3 11:27:38 Social History Question Answer Notes LastModified by Organizat ion Details LastModified Time Tobacco Smoking Status Never Smoker Allie richter PA - [facility] 09/11/2022 11:25:16 What Is Your Level Of Alcohol Consumption? None Information not available 09/11/2022 Do You Use Any Illicit Or Recreational Drugs? No Information not available 09/11/2022 Have You Recently Traveled Abroad? No Information not available 09/11/2022 Do You Or Have You Ever Used Any Other Forms Of Tobacco Or Nicotine? No Information not available 09/11/2022 Sex: Unknown Functional Status None recorded. Mental Status None recorded. Family History Relationship Description Onset Age of this Age Resolved Age Notes LastModified by Organization Details LastModified Time Mother Congestive heart failure [email or web address] Not available 2022 11:25:01 Medical History No medical history recorded. Gynecological HistoryNo gynecological history recorded. Obstetrics History GPAL:G 0 P 0 0 0 0 Immunizations Vaccine Type Date Status Note Provider Nam e and Address Organization Details Recorded Time Influenza, MDCK, quadrivalent, PF 9 completed Allie richter, PA - [facility] 09/11/2022 11:17:20 Influenza, high-dose, quadrivalent, PF 2 completed Allie Galeana null, PA - [facility] 09/11/2022 11:17:20 Influenza, adjuvanted, quadrivalent, PF 0 completed Allie Galeana null, PA - [facility] 09/11/2022 11:17:20 Influenza, adjuvanted, quadrivalent, PF 1 completed Allie Galeana null, PA - [facility] 09/11/2022 11:17:20 COVID-19, mRNA, LNP-S, PF, 100 mcg/0.5mL dose or 50 mcg/0.25mL dose 1 completed Allie Monfette null, PA - [facility] 09/11/2022 11:17:20 COVID-19, mRNA, LNP-S, PF, 100 mcg/0.5mL dose or 50 mcg/0.25mL dose 1 completed Allie Monfette null, PA - [facility] 09/11/2022 11:17:20 COVID-19, mRNA, LNP-S, PF, 100 mcg/0.5mL dose or 50 mcg/0.25mL dose 2 completed Allie Monfette null, PA - [facility] 09/11/2022 11:17:20 COVID-19, mRNA, LNP-S, PF, 100 mcg/0.5mL dose or 50 mcg/0.25mL dose 1 completed Allie Monfette null, PA - [facility] 09/11/2022 11:17:20 COVID-19, mRNA, LNP-S, bivalent, PF, 50 mcg/0.5 mL or 25mcg/0.25 mL dose 2 completed Allie Monfette null, PA - [facility] 09/11/2022 11:17:20 pneumococcal polysaccharide PPV23 5 completed Allie Monfette null, PA - [facility] 09/11/2022 11:17:20 pneumococcal polysaccharide PPV23 0 completed Allie Monfette null, PA - [facility] 09/11/2022 11:17:20 Influenza, high-dose, trivalent, PF 7 completed Allie Monfette null, PA - [facility] 09/11/2022 11:17:20 Influenza, high-dose, trivalent, PF 8 completed Allie Monfette null, PA - [facility] 09/11/2022 11:17:21 Influenza, split virus, trivalent, preservative 4 completed Allie Monfette null, PA - [facility] 09/11/2022 11:17:21 Past Encounters Encounter ID Performer Location Encounter Start Date Encounter Closed Date Diagnosis/Indication Diagnosis SNOMED-CT Code Diagnosis ICD10 Code [id number] [address] [place] [address] 01/12/2015 09:01:28 01/12/2015 09:34:14 [id number] [facility] IS[facility]LL [address] [place] [address] 09/11/2022 11:07:38 09/11/2022 11:57:33 Acute sinusitis 35611462 J01.90 Cough 32244710 R05.9 Hypertensive disorder 38 149555 I10 Health Concerns Section Related Observation LastModified by Organization Detai ls LastModified Time None Recorded Concern Status LastModified by Organization Details LastModified Time None Recorded Advance Directives Directive None Recorded Payers Encounter Date Sequence Insurance Name Policy Number Policy Camara Covered Member ID Camara Member ID Guarantor Name 01/12/2015 2 [place] [facility] - [place]UCT[facility] (O) [id number] Benny Fofana [id number] 09/11/2022 2 [place] Nayeli Fofana [id number] 09/11/2022 1 [place] [employer] [address] [id number] Nayeli Fofana Notes Date Note Type Note Provider Name and Address Organization Details Recorded Time 09/11/2022 text/html Sinus Complaints UCReported bypatient.Locatio n:sinus pressure Associated Symptoms:no nasal discharge; no fever; no difficulty breathing; no nausea or vomiting; no nasal passage blockage; no ear fullness;sore throat;Post nasal drip;cough Severity:mild Context:no recent sick contacts;worse with seasonal allergen exposure Risk Factors:no current smoking or tobacco use; no history of nasal trauma Alleviating factors:antihista mine cetirizineNotes:T he patient has a strong history of sinusitis and bronchitis. She has been battling increased nasal drainage for about 2 weeks. SHe states now the coughing is getting worse. SHe does have allergies and she take Zyrtec for that. She has reports the doctor told her she has chronic bronchitis. She is short of breath all the time and today is not any different. the patinet did not take her blood pressure medication today. GINI ISBELL [address] [place], [address], [place] - [facility] 09/11/2022 13:31:17 OBGyn Episode No OBEpisode recorded.
[2024-03-16 12:56] LABS: MANUAL DIFF FLAG NO
[2024-03-16 13:09] LABS: Basophils Percent Auto 0.6 % (0-2); Eosinophils Absolute Auto 0.2 X10*3/uL (0.0-0.4); Hematocrit 36.6 % (37.0-47.0); Hemoglobin 11.9 g/dl (12.0-16.0); Imm Gran Abs Auto 0.02 X10*3/uL (0.00-0.03); Imm Gran Pct Auto 0.4 % (0.0-0.4); Lymphocytes Absolute Auto 0.9 X10*3/uL (1.2-4.9); Lymphocytes Percent Auto 18.8 % (20-40); Mean Corpuscular HGB Conc 32.5 g/dl (31.0-35.0); Mean Corpuscular Hemoglobin 30.5 pg (27.0-33.0); Mean Corpuscular Volume 93.8 fL (80.0-98.0); Monocytes Absolute Auto 0.3 X10*3/uL (0.1-1.2); Monocytes Percent Auto 6.1 % (2-11); Neutrophils Absolute Auto 3.4 x10*3/uL (2.0-8.3); Neutrophils Percent Auto 70.1 % (45-73); Platelet Count 126 X10*3/uL (160-400); Red Cell Distribution Width 13.8 % (11.0-16.0); White Blood Count 4.8 X10*3/uL (4.8-10.8)
[2024-03-16 13:29] LABS: Alanine Aminotransferase 16 U/L (0-31); Albumin Level 3.5 g/dL (3.5-5.0); Alkaline Phosphatase 102 U/L (39-117); Anion Gap 11 (12-20); Aspartate Amino Transferase 31 U/L (5-31); Bilirubin Total 0.7 mg/dL (0.0-1.0); Blood Urea Nitrogen 20 mg/dL (9-16); Calcium 8.3 mg/dL (8.4-10.2); Carbon Dioxide 24 mmol/L (22-29); Chloride 111 mmol/L (96-108); Estimated Glomerular Filt Rate > 60; Glucose Random 94 mg/dL (60-115); Potassium 4.2 mmol/L (3.3-5.1); Sodium 142 mmol/L (135-145); Total Protein 6.5 g/dL (6.5-8.0)
== END 2024-03-16 09:35 | disposition home or self-care (01) ==
LOC: HO.HMGCLDS 09:34
PROVIDERS: PCP Internal Medicine; Visit Provider Internal Medicine
DX: I50.30 Unspecified diastolic (congestive) heart failure (principal); R60.0 Localized edema; J45.909 Unspecified asthma, uncomplicated; I10 Essential (primary) hypertension
CPT/HCPCS: 36415; 80053; 83880; 85025

== ENCOUNTER 2024-03-21 10:47 | Outpatient (AMB) | payer MEDICARE, SELFPAY ==
[2024-03-21 10:55] VITALS: BP 130/70; PULSE 60; O2SAT 95; BMI 28.5
--- NOTE | 2024-03-21 10:55 | A.OFFPC_ITS ---
Vital Signs 03/21/24 10:55 Height 5 ft 3 in Weight 161 lb BMI 28.5 BP 130/70 Blood Pressure Location Rt brachial Position Sitting Pulse 60 Pulse Source Pulse Oximeter Pulse Oximetry (%) 95 Oxygen Delivery Method Room Air Intake Visit Reasons: 6/8 week follow up Intake Note: Pt is here today for 6-8 weeks follow up visit. Allergies cefotetan Allergy (Unknown, Verified 03/21/24 10:56) unknown cefuroxime [From Ceftin] Allergy (Unknown, Verified 03/21/24 10:56) Unknown ciprofloxacin [Cipro] Allergy (Unknown, Verified 03/21/24 10:56) unknown latex Allergy (Unknown, Verified 03/21/24 10:56) Unknown moxifloxacin [From Avelox] Allergy (Unknown, Verified 03/21/24 10:56) Unknown prochlorperazine [From Compazine] Allergy (Unknown, Verified 03/21/24 10:56) Unknown alendronate sodium Adverse Reaction (Intermediate, Verified 03/21/24 10:56) Stomach Upset amlodipine Adverse Reaction (Uncoded 03/21/24 10:56) Abdominal Pain Medication List - Last Reconciled 03/21/24 by Jeanne Killian MD albuterol sulfate 90 mcg/actuation 2 puffs inhalation Q6H PRN 30 days dapagliflozin propanediol 5 mg PO DAILY fluticasone furoate-vilanterol 200-25 mcg/dose (Breo Ellipta) 1 inh inhalation DAILY 30 days furosemide 60 mg (3 x 20 mg) PO DAILY hydralazine 1/2 orally 3 times a day; 1/2 tab lisinopril 40 mg PO DAILY acxodfku-zpkrcaoic-TA 3.5-10,000-1 mg/mL-unit/mL-% 4 drps otic (ear) left Q8H 5 days omeprazole 40 mg PO DAILY propranolol 20 mg PO BID sertraline 50 mg PO DAILY spironolactone 50 mg PO DAILY Tobacco use date assessed: 03/21/24 Fall risk assessment: No Falls in past year Last assessed Fall Risk: 03/21/24 Dental Screening Dental Screen Date: 03/21/24 Did you have a dental visit in the last 12 months?: Yes Did you have a dental problem in the last 6 months where you did not have access to dental care?: No Was dental information given to patient?: Patient has dentist HPI 6/8 week follow up HPI Details Patient presents for the follow-up of hypertension, heart failure with preserved ejection fraction COPD portal hypertension stable on current medications. Patient is feeling better lower extremities swelling improved significantly. She has been walking at least twice a week for 1 mi [facility] Medical History (Updated 03/21/24 @ 11:47 by Jeanne Killian MD) Bladder carcinoma Osteoporosis Annual physical exam Restrictive lung disease Pulmonary nodule Allergic rhinitis Atypical ductal hyperplasia of breast COPD (chronic obstructive pulmonary disease) Thrombocytopenia Aortic valve sclerosis Breast CA Depression Essential hypertension Portal hypertension Surgical History H/O colonoscopy History of esophagogastroduodenoscopy (EGD) History of surgery History of inguinal hernia repair Hx of cholecystectomy Family History Father No problems noted. Mother Colon cancer Sister Breast cancer Social History Housing: House Alcohol intake: current Alcohol intake frequency: holidays/special occasions only Patient Tobacco Use Status: Never used Tobacco e-Cigarette/Vaping Use: Never Used service: No Current occupational status: retired Cognitive needs: No Hearing needs: No Vision needs: Yes Questionnaire PHQ-9 Over the last 2 weeks, how often have you been bothered by any of the following problems? 1. Little interest or pleasure in doing things: not at all 2. Feeling down, depressed, or hopeless: not at all 3. Trouble falling or staying asleep, or sleeping too much: not at all 4. Feeling tired or having little energy: not at all 5. Poor appetite or overeating: not at all 6. Feeling bad about yourself - or that you are a failure or have let yourself or your family down: not at all 7. Trouble concentrating on things, such as reading the newspaper or watching television: not at all 8. Moving or speaking so slowly that other people could have noticed. Or the opposite - being so fidgety or restless that you have been moving around a lot more than usual: not at all 9. Thoughts that you would be better off or of hurting yourself in some way: not at all Total score: 0 Depression Screening Interpretation: Negative Depression Screening Done: Yes 48866 - PHQ-9 Billing: Yes Source: Developed by Drs. Alber Mcelroy, Rula Pantoja, Ranulfo Kirkpatrick and colleagues, with an educational laly from [employer] [address]. Thrive Questionnaire Date Thrive assessed: 03/21/24 I am a: Patient What is your living situation today?: I have a steady place to live Within the past 12 months, did the food you bought not last and you didn't have the money to get more?: I choose not to answer this question Within the past 12 months, did you worry whether your food would run out before you got money to buy more?: I choose not to answer this question Do you have trouble paying for medicines?: Yes Do you have trouble getting transportation to medical appointments?: No Do you have trouble paying your heating and electricity bill?: No Do you have trouble taking care of your child, family member or friend?: No Do you have trouble with day-to-day activities such as bathing, preparing meals, shopping, managing finances, etc.?: No Are you currently unemployed and looking for a job?: No Are you interested in more education?: No Please select the resources that you would like help with: Paying for medicine Currently or been in a relationship where the following occur: I choose not to answer THRIVE Score: 0 AUDIT C Alcohol Use Questionnaire (AUDIT-C) 1. How often do you have a drink containing alcohol?: Never 3. How often do you have six or more drinks on one occasion?: Never Total Score: 0 ELENA-7 AMB Questionnaire ELENA-7 Date ELENA - 7 assessed: 03/21/24 Feeling nervous, anxious, or on edge: 0 = Not at all Not being able to stop or control worryin = Not at all Worrying too much about different things: 0 = Not at all Trouble relaxin = Not at all Being so restless that it is hard to sit still: 0 = Not at all Becoming easily annoyed or irritable: 0 = Not at all Feeling afraid as if something awful might happen: 0 = Not at all Total ELENA-7 score (0-4 normal; 5-9 mild; 10-14 moderate; 15-21 severe): 0 Source: Developed by Drs. Alber Mcelroy, Rula Pantoja, Ranulfo Kirkpatrick and colleagues, with an educational laly from [employer] [address]. ELENA-7 Assessment Billing ELENA-7 Assessment Tool: ELENA-7 Assessment 42768 Review of Systems Const All systems reviewed & are unremarkable except as noted in HPI and below ENT Reports no additional complaints Card Reports no additional complaints Resp Reports no additional complaints GI Reports no additional complaints Reports no additional complaints Physical exam (Primary Care) Vital Signs: Last Vital Signs Pulse 60 03/21/24 10:55 Pulse Ox 95 03/21/24 10:55 Oxygen Delivery Method Room Air 03/21/24 10:55 BMI result Body Mass Index 28.5 Tobacco/Smoking Status: Tobacco use Status Tobacco use date assessed 03/21/24 03/21/24 10:57 Patient Tobacco Use Status Never used Tobacco 03/21/24 10:57 e-Cigarette/Vaping Use Never Used 03/21/24 10:57 PHQ-9: PHQ-9 Score PHQ-9: Total score 0 03/21/24 10:57 Depression Screening Interpretation: Negative Thrive Assessment: Date of Thrive Assessment Date Thrive assessed 03/21/24 03/21/24 10:57 Currently or been in a relationship where the following occur: I choose not to answer Const General: no acute distress Eyes General: appearance normal, both eyes and all related structures Neck Neck: Yes supple Resp Effort & Inspection: normal respiratory effort Auscultation: crackles bilateral in the lower lung pham Cardio Rhythm: regular rhythm Heart sounds: S1 normal heart sound present and S2 normal heart sound present Extrem Other: Trace pitting edema bilaterally Coding Level of Care Code Est Pt Level 4 (65038) Complex EM visit Add On G2211 Diagnoses Osteoporosis M81.0 (HFpEF) heart failure with preserved ejection fraction I50.30 Edema of lower extremity R60.0 Bladder carcinoma C67.9 Portal hypertension K76.6 COPD (chronic obstructive pulmonary disease) J44.9 Additional Codes ELENA-7 Assessment Billing - ELENA-7 Assessment Tool: ELENA-7 Assessment 82443 ([id number]) PHQ-9 - 57265 - PHQ-9 Billing: Yes ([id number]) Assessment & Plan Assessment & Plan (1) Osteoporosis: Comment: DEXA 07/03, T SCORE -3.8 hip, took Fosamax for 5 years but stopped > 5 years, Fosamax caused stomach upset , Prolia not covered by the insurance, 1st Reclast inf 05/07 Code(s): M81.0 - Age-related osteoporosis without current pathological fracture Category: Medical Plan: Repeat DEXA patient will get a 2nd Reclast infusion order in the chart (2) (HFpEF) heart failure with preserved ejection fraction: Comment: Echo 07/2023,EF 65%, severe diastolic dysfunction, mod , mild AR, mild MR, moderate mitral of calcifications, normal pulmonary pressure Code(s): I50.30 - Unspecified diastolic (congestive) heart failure Category: Medical Plan: Increase Farxiga to 10 mg a day continue current medications (3) Edema of lower extremity: Comment: Echo 08/04, nl EF, mod , mild AR, moderate mitral valve calcifications, mild MR Code(s): R60.0 - Localized edema Category: Medical Plan: Continue furosemide (4) Bladder carcinoma: Comment: f/u annually with Urology, Abd/pelvic CT 05/2023 [facility], s/p R nephrectomy, L kidney benign cysts, stable splenomegaly, no ascites Code(s): C67.9 - Malignant neoplasm of bladder, unspecified Category: Medical Plan: Follow-up with urology (5) Portal hypertension: Comment: Follow-up with GI with serial EGD, annual US no liver masses, splenomegaly 06/2023 Code(s): K76.6 - Portal hypertension Category: Medical Plan: Continue propranolol (6) COPD (chronic obstructive pulmonary disease): Comment: Has moderately severe chronic obstructive pulmonary disease which remains very stable and controlled, She has had no acute infection or acute exacerbations in the last 6 months. Code(s): J44.9 - Chronic obstructive pulmonary disease, unspecified Category: Medical Plan: Continue Breo Orders: Orders XR DEXA axial skeleton Today M81.0 - Age-related osteoporosis without current pathological fracture Comprehensive [place]. Panel Fast 2 Months C67.9 - Malignant neoplasm of bladder, unspecified, I50.30 - Unspecified diastolic (congestive) heart failure, J44.9 - Chronic obstructive pulmonary disease, unspecified, K76.6 - Portal hypertension, R60.0 - Localized edema Complete Blood Count Auto Diff 2 Months C67.9 - Malignant neoplasm of bladder, unspecified, I50.30 - Unspecified diastolic (congestive) heart failure, J44.9 - Chronic obstructive pulmonary disease, unspecified, K76.6 - Portal hypertension, R60.0 - Localized edema B Type Natriuretic Peptide 2 Months C67.9 - Malignant neoplasm of bladder, unspecified, I50.30 - Unspecified diastolic (congestive) heart failure, J44.9 - Chronic obstructive pulmonary disease, unspecified, K76.6 - Portal hypertension, R60.0 - Localized edema Vitamin D 25-OH Total 2 Months C67.9 - Malignant neoplasm of bladder, uns pecified, I50.30 - Unspecified diastolic (congestive) heart failure, J44.9 - Chronic obstructive pulmonary disease, unspecified, K76.6 - Portal hypertension, R60.0 - Localized edema Referrals Infusion Center Notification M81.0 - Age-related osteoporosis without current pathological fracture Medications: New dapagliflozin propanediol 10 mg PO QAM 90 tabs 2RF Discontinued dapagliflozin propanediol Discontinued Reason: Doctor's Order 5 mg PO DAILY 90 tabs 0RF
--- OUTSIDE RECORDS SUMMARY | 2024-03-21 11:11 | XMS_ITS | Data Portability ---
Author Organization [facility] [address] Address [address] [place] [address] Care Team Providers Care Inside Sales Administrator Name Role Phone SARANATElizabethLUCILLE Primary Care Provider Assessment No assessment recorded. Plan of Treatment Reminders Order Date Submit Date Provider Last Modified By Organization Details Last Modified Time Details Appointments None recorded. Lab None recorded. Referral None recorded. Procedures None recorded. Surgeries None recorded. Imaging None recorded. Medication Orders doxycycline hyclate 100 mg tablet [id number], [address] [place], [place], [id number], 3 11:56:50 benzonatate 200 mg capsule 2022 023 [id number], [address], [place], [id number], 3 11:56:50 Patient TargetsNo targets recorded. Patient Instructions Encounter Date Encounter Id Patient Instructions Last Modified By Organization Details Last Modified Time 09/11/2022 [id number] cough: care instructions [email or web address] Not available 09/11/2022 11:56:39 You are being [...] or lung pathology. Thank you for using [facility] today - please don't hesitate to contact up or return to see if you have any questions or concerns. [email or web address] Not available 09/11/2022 11:55:42 Reason for Referral None Reported. Problems Name Problem SNOMED Code Status Onset Date Resolution Date Notes Provider Name and Address Organization Details Recorded Time Congenital hepatic fibrosis 50007874 Active 2022 Allie richter PA - [facility] 3 11:21:56 Malignant neoplasm of urinary bladder 210977096 Active 2022 Allie richter PA - [facility] 3 11:22:06 Hypertensive disorder 67602074 Active 2022 Allie richter PA - [facility] 3 11:24:17 Environmental allergy 037789741 Active 2022 GINI ISBELL [facility] [place], [address] [facility] PA - [facility] 3 11:52:00 Notes:low platelets ground g lass Problem Notes None recorded. Medical Equipment None Reported. Allergies Allergen ID Allergen Name Allergen Category Reaction Reaction Severity Criticality Documentation Date Start Date Code Code System Note Provider Name and Address Organization Details Recorded Time 979790 Compazine medicatio n Not available Not available Not available 09/11/2022 53215 6 RxNorm Allie Galeana null, PA - [facility] 3 11:19:10 634675 Fosamax medicatio n Not available Not available Not available 09/11/2022 43498 5 RxNorm Allie Galeana null, PA - [facility] 3 11:19:22 081272 Cipro medicatio n Not available Not available Not available 09/11/2022 75702 3 RxNorm Allie Galeana null, PA - [facility] 3 11:19:29 260683 Ceftin medicatio n Not available Not available Not available 09/11/2022 07304 6 RxNorm Allie Galeana null, PA - [...] Updated DateTime 3 160.02 cm 29.8 kg/m2 68119.5 2 g 20 /min 96 % 96 [...] Diagnosis/Indication Diagnosis SNOMED-CT Code Diagnosis ICD10 Code Diagnosis Note [id number] [address] [place] [address] 01/12/2015 09:01:28 01/12/2015 09:34:14 [id number] GINI ISBELL [address] [facility] [place] [address] 09/11/2022 11:07:38 09/11/2022 11:57:33 Acute sinusitis 79743236 J01.90 Cough 16702027 R05.9 History of Chronic Bronchitis . Hypertensive disorder 38 160215 I10 Your blood pressure was elevated today - you need to follow up with your PCP for this. Medication may need to be adjusted. Please keep a journal of AM and PM readings from a home cuff. This will help adjust medication s. Health Concerns Section Related Observation LastModified by Organization Detai ls LastModified Time None Recorded Concern Status LastModified by Organization Details LastModified Time None Recorded Advance Directives Directive None Recorded Payers Encounter Date Sequence Insurance Name Policy Number Policy Camara Covered Member ID Camara Member ID Guarantor Name 01/12/2015 2 [place] [facility] - [place]CTIBLE (O) [id number] Benny Fofana [id number] Nayeli Fofana 09/11/2022 2 [place] Nayeli Fofana [id number] Nayeli Fofana 09/11/2022 1 [place] [employer] Nayeli Fofana [id number] Nayeli Fofana Notes Date Note Type [...] pressure medication today. GINI ISBELL [address] [place], [address], PA - [facility] 09/11/2022 13:31:17 OBGyn Episode No OBEpisode recorded.
--- OUTSIDE RECORDS SUMMARY | 2024-03-21 11:12 | XMS_ITS | Patient Health Record ---
[facility] Address [address] [place] [address] Care Team Providers Care Survey Interviewer Name Role Phone Jeanne Killian MD Primary Care Provider Unavaila ble Black, Tessa Unavailable [phone] Allergies Allergen (clinical drug ingredient) Drug/Non Drug [...] Problem Acquired hammer toe of right foot (7639719528873164) Other hammer toe(s) (acquired), right foot (M20.41) Active confirmed Problem Acquired hammer toe of left foot (1756635248763630) Other hammer toe(s) (acquired), left foot (M20.42) Active confirmed Problem 068880402926130 Hallux valgus (acquired), left foot (M20.12) Active confirmed Problem 755479868013864 Hallux valgus (acquired), right foot (M20.11) Active confirmed Problem Localized, primary osteoarthritis of the ankle and/or foot (374016371) Osteoarthritis of right ankle and foot (M19.071) Active confirmed Problem Localized, primary osteoarthritis of the ankle and/or foot (191034781) Osteoarthritis of left ankle and foot (M19.072) Active confirmed Plan Of Treatment No Information Insurance Providers Payer Name Payer Address Payer Phone Subscriber Number Group Number Insured Name Patient Relationship to Insured Coverage Start Date Coverage End Date Medicare National Govt Free-lance[employer] [facility] [address] [place] [address] [id number] Nayeli Fofana Self - patient is the insured [employer] [facility] [address] [place] [address] [phone] [id number] Nayeli Foafna Self - patient is the insured Medical (General) History Medical History History ICD Code Arthritis asthma Gall bladder problems High blood pressure Kidney disease Liver disease Osteoporosis Measles Mumps Chicken pox Transfusions Congenitive Hepatic Fibrosis Surgical History Surgery Date(Month/Year) Breast Surgery x2 1978,2020 kidney surgery 2016 gall bladder 2013 hernia
== END 2024-03-21 12:09 | disposition home or self-care (01) ==
PROVIDERS: PCP Internal Medicine; Visit Provider Internal Medicine
DX: M81.0 Age-related osteoporosis without current pathological fracture (principal); I50.30 Unspecified diastolic (congestive) heart failure; C67.9 Malignant neoplasm of bladder, unspecified; K76.6 Portal hypertension; J44.9 Chronic obstructive pulmonary disease, unspecified; R60.0 Localized edema

== ENCOUNTER → 2024-03-21 10:47 | Outpatient (BNVA) | payer MEDICARE, SELFPAY | PROVIDERS: PCP Internal Medicine; Visit Provider Internal Medicine | DX: K76.6 Portal hypertension (principal); I50.30 Unspecified diastolic (congestive) heart failure; J44.9 Chronic obstructive pulmonary disease, unspecified; M81.0 Age-related osteoporosis without current pathological fracture; R60.0 Localized edema; C67.9 Malignant neoplasm of bladder, unspecified; Z79.899 Other long term (current) drug therapy | CPT/HCPCS: 96127; 99212 ==

== ENCOUNTER 2024-04-27 08:27 | Outpatient (REF) | payer MEDICARE, SELFPAY ==
--- NOTE | ~2024-04-27 | MM_ITS ---
EXAMINATION: DXA BONE DENSITY AXIAL HISTORY: Estrogen deficiency TECHNIQUE: [employer] Dual energy absorptiometry (DEXA) of the lumbar spine, total left hip, and femoral neck was performed. COMPARISON: Comparison is made with the prior examination dated 06/17/2021. FINDINGS: The bone mineral density of the lumbar spine is 0.979 with a T-score of -1.7, and a Z-score of -0.4. This represents a BMD change of 6.8% compared to the prior exam. This is statistically significant. The bone mineral density of the left total hip is 0.676 with a T-score of -2.6, and a Z-score of -1.3. This represents BMD change of 7.8% compared to the prior exam. This is statistically significant. The bone mineral density of the left femoral neck is 0.605 with a T-score of -3.1, and a Z-score of -1.5. This represents BMD change of 12.7% compared to the prior exam. FRACTURE RISK: The FRAX index suggests a ten year probability of major osteoporotic fracture of 42.1%, and of hip fracture 31.7%. MM/XR DEXA axial skeleton IMPRESSION: Based on bone mineral density, and according to World Health Organization (WHO) criteria, the diagnosis is consistent with osteoporosis. All bone density values are in grams per centimeter squared (g/cm2). Statistically, 68% of repeat scans fall within 1 SD (+/- 0.010 g/cm2 for AP spine L1-L4) and 1 SD (+/- 0.012 g/cm2 for femur total) FRAX is a trademark of the [employer]'s [employer] Metabolic Bone Disease, a World Health Organization (WHO) Collaborating Center. Electronically signed by: Alber Gaxiola MD 04/27/2024 09:16 AM [facility]
--- OUTSIDE RECORDS SUMMARY | 2024-04-27 08:45 | XMS_ITS | Data Portability ---
Author Organization [facility] [address] Address [address] [place] [address] Care Team Providers Care Mobile Architect Name Role Phone SARANATElizabethLUCILLE Primary Care Provider Assessment No assessment recorded. Plan of Treatment Reminders Order Date Submit Date Provider Last Modified By Organization Details Last Modified Time Details Appointments None recorded. Lab None recorded. Referral None recorded. Procedures None recorded. Surgeries None recorded. Imaging None recorded. Medication Orders doxycycline hyclate 100 mg tablet 2022 023 [address] [facility] [id number], [address] [place], [place], [id number], 3 11:56:50 benzonatate 200 mg capsule 2022 023 [facility] [id number], [address] [place], [place], [id number], 3 11:56:50 Patient TargetsNo targets recorded. Patient Instructions Encounter Date Encounter Id Patient Instructions Last Modified By Organization Details Last Modified Time 09/11/2022 [id number] cough: care instructions [email or web address] Not available 09/11/2022 11:56:39 You are being [...] or lung pathology. Thank you for using [facility] today - please don't hesitate to contact up or return to see if you have any questions or concerns. [email or web address] Not available 09/11/2022 11:55:42 Reason for Referral None Reported. Problems Name Problem SNOMED Code Status Onset Date Resolution Date Notes Provider Name and Address Organization Details Recorded Time Congenital hepatic fibrosis 44344157 Active 2022 Allie richter PA - [facility] 3 11:21:56 Malignant neoplasm of urinary bladder 065602760 Active 2022 Allie richter PA - [facility] 3 11:22:06 Hypertensive disorder 51972075 Active 2022 Allie richter PA - [facility] 3 11:24:17 Environmental allergy 828814493 Active 2022 GINI ISBELL [facility] [place], [address] [facility] PA - [facility] 3 11:52:00 Notes:low platelets ground g lass Problem Notes None recorded. Medical Equipment None Reported. Allergies Allergen ID Allergen Name Allergen Category Reaction Reaction Severity Criticality Documentation Date Start Date Code Code System Note Provider Name and Address Organization Details Recorded Time 634962 Compazine medicatio n Not available Not available Not available 09/11/2022 85253 6 RxNorm Allie Galeana null, PA - [facility] 3 11:19:10 121872 Fosamax medicatio n Not available Not available Not available 09/11/2022 04719 5 RxNorm Allie Galeana null, PA - [facility] 3 11:19:22 153973 Cipro medicatio n Not available Not available Not available 09/11/2022 44728 3 RxNorm Allie Galeana null, PA - [facility] 3 11:19:29 906323 Ceftin medicatio n Not available Not available Not available 09/11/2022 43900 6 RxNorm Allie Galeana null, PA - [...] height Body mass index (BMI) Body weight Pain severity - 0-10 verbal numeric rating [Score] - Reported Respiratory rate Oxygen saturation Oxygen saturation in Arterial blood by Pulse oximetry Heart rate Body temperature Systolic blood pressure Diastolic blood pressure Provider Name and Address Organization Details Last Updated DateTime 3 160.02 cm 29.8 kg/m2 93524.5 2 g 5 20 /min 96 % 96 % 65 /min 98.5 [degF] 164 mm[Hg] 88 mm[Hg] Allie Galeana PA - [facility] 3 11:27:38 Social History Question Answer Notes LastModified by Organizat ion Details LastModified Time Tobacco Smoking Status Never Smoker Allie Hancocknaida richter PA - [facility] 09/11/2022 11:25:16 [...] Influenza, MDCK, quadrivalent, PF 9 completed Allie Juan Carlosellie richter, PA - [facility] 09/11/2022 11:17:20 Influenza, high-dose, quadrivalent, PF 2 completed Allie richter, PA - [facility] 09/11/2022 11:17:20 Influenza, adjuvanted, quadrivalent, PF 0 completed Allie Juan Carlosellie richter, PA - [facility] 09/11/2022 11:17:20 Influenza, adjuvanted, quadrivalent, PF 1 completed Allie richter PA - [facility] 09/11/2022 11:17:20 COVID-19, [...] Influenza, split virus, trivalent, preservative 4 completed GINI Joy - [facility] 09/11/2022 11:17:21 Past Encounters Encounter ID Performer Location Encounter Start Date Encounter Closed Date Diagnosis/Indication Diagnosis SNOMED-CT Code Diagnosis ICD10 Code Diagnosis Note [id number] [address] [address] 01/12/2015 09:01:28 01/12/2015 09:34:14 [id number] GINI ISBELL [address] [place] [address] 09/11/2022 11:07:38 09/11/2022 11:57:33 Acute sinusitis 43874675 J01.90 Cough 46873911 R05.9 History of Chronic Bronchitis . Hypertensive disorder 38 169204 I10 Your blood pressure was elevated today [...] Member ID Guarantor Name 01/12/2015 2 [place] [facility] ([facility] [id number] Benny Fofana [id number] Nayeli Fofana 09/11/2022 2 [place] Nayeli Fofana [id number] Nayeli Fofana 09/11/2022 1 [place] [employer] Nayeli Fofana [id number] Nayeli Fofana Notes Date Note Type [...] GINI ISBELL [address] [place], [address], [place] - [facility] 09/11/2022 13:31:17 OBGyn Episode No OBEpisode recorded.
--- OUTSIDE RECORDS SUMMARY | 2024-04-27 08:45 | XMS_ITS | Patient Health Record ---
Author Organization [facility] Address [address] [address] Care Team Providers Care Wood Calker Name Role Phone Jeanne Kililan MD Primary Care Provider Unavaila lane Black, Tessa Unavailable [phone] Allergies Allergen (clinical drug ingredient) Drug/Non Drug Allergy documented on EMR Reaction Allergy Type Onset Date Status analox (uncoded) Unknown Allergy Act troy Ceftin light headed Drug Allergy Acti ve Cipro Unknown Drug Allergy Active Fosamax Unknown Drug Allergy Active Keflex light headed Drug Allergy Acti ve Levaquin Unknown Drug Allergy Active Tylenol Unknown Drug Allergy Active Compazine Unknown Drug Allergy Active Adhesive rash, [...] Problem Acquired hammer toe of right foot (6853573213212883) Other hammer toe(s) (acquired), right foot (M20.41) Active confirmed Problem Acquired hammer toe of left foot (8892320396792747) Other hammer toe(s) (acquired), left foot (M20.42) Active confirmed Problem [id number] Hallux valgus (acquired), left foot (M20.12) Active confirmed Problem 144232138017387 Hallux valgus (acquired), right foot (M20.11) Active confirmed Problem Localized, primary osteoarthritis of the ankle and/or foot (980284151) Osteoarthritis of right ankle and foot (M19.071) Active confirmed Problem Localized, primary osteoarthritis of the ankle and/or foot (194539616) Osteoarthritis of left ankle and foot (M19.072) Active confirmed Plan Of Treatment No Information Insurance Providers Payer Name Payer Address Payer Phone Subscriber Number Group Number Insured Name Patient Relationship to Insured Coverage Start Date Coverage End Date Medicare National Govt [employer] [address] [facility] [place] [address] [id number] Nayeli Fofana Self - patient is the insured [facility] [address] [place] [address] [id number] Nayeli Fofana Self - patient is the insured Medical (General) History Medical History History ICD Code Arthritis asthma Gall bladder problems High blood pressure Kidney disease Liver disease Osteoporosis Measles Mumps Chicken pox Transfusions Congenitive Hepatic Fibrosis Surgical History Surgery Date(Month/Year) Breast Surgery x2 1978,2020 kidney surgery 2016 gall bladder 2013 hernia
== END 2024-04-27 08:28 | disposition home or self-care (01) ==
LOC: HO.MAMMO 08:27
PROVIDERS: PCP Internal Medicine; Visit Provider Internal Medicine
DX: M81.0 Age-related osteoporosis without current pathological fracture (principal)
CPT/HCPCS: 77080

== ENCOUNTER → 2024-04-27 08:45 | Outpatient (BNV) | payer MEDICARE, SELFPAY | PROVIDERS: PCP Internal Medicine; Visit Provider Radiology Diagnostic Radiology | DX: E28.39 Other primary ovarian failure (principal) | CPT/HCPCS: 77080 ==

== ENCOUNTER 2024-05-17 09:09 | Outpatient (AMB) | payer MEDICARE, SELFPAY ==
[2024-05-17 09:11] VITALS: BP 122/70; PULSE 70; RESP 18; TEMP 36.8; O2SAT 97; BMI 27.3
--- NOTE | 2024-05-17 09:11 | A.OFFPC_ITS ---
Vital Signs 05/17/24 09:11 Height 5 ft 3 in Weight 154 lb BMI 27.3 BP 122/70 Blood Pressure Location Lt brachial Position Sitting Respiration 18 Pulse 70 Pulse Source Pulse Oximeter Temp 98.2 F Temp Source Oral Pulse Oximetry (%) 97 Oxygen Delivery Method Room Air Intake Visit Reasons: 2m follow Intake Note: Pt is here today for 2 months follow up visit. Allergies cefotetan Allergy (Unknown, Verified 05/17/24 09:13) unknown cefuroxime [From Ceftin] Allergy (Unknown, Verified 05/17/24 09:13) Unknown ciprofloxacin [Cipro] Allergy (Unknown, Verified 05/17/24 09:13) unknown latex Allergy (Unknown, Verified 05/17/24 09:13) Unknown moxifloxacin [From Avelox] Allergy (Unknown, Verified 05/17/24 09:13) Unknown prochlorperazine [From Compazine] Allergy (Unknown, Verified 05/17/24 09:13) Unknown alendronate sodium Adverse Reaction (Intermediate, Verified 05/17/24 09:13) Stomach Upset amlodipine Adverse Reaction (Uncoded 05/17/24 09:13) Abdominal Pain Medication List - Last Reconciled 05/17/24 by Jeanne Killian MD albuterol sulfate 90 mcg/actuation 2 puffs inhalation Q6H PRN 30 days dapagliflozin propanediol 10 mg PO QAM fluticasone furoate-vilanterol 200-25 mcg/dose (Breo Ellipta) 1 inh inhalation DAILY 30 days fluticasone propion-salmeterol 250-50 mcg/dose (Wixela Inhub) 1 inh inhalation BID 30 days furosemide 60 mg (3 x 20 mg) PO DAILY hydralazine 1/2 orally 3 times a day; 1/2 tab lisinopril 40 mg PO DAILY bficyrwf-aqtygkjyy-JP 3.5-10,000-1 mg/mL-unit/mL-% 4 drps otic (ear) left Q8H 5 days omeprazole 40 mg PO DAILY Prolia (denosumab) 60 mg subcut [id number] NS propranolol 20 mg PO BID sertraline 50 mg PO DAILY spironolactone 50 mg PO DAILY Tobacco use date assessed: 05/17/24 Dental Screening Dental Screen Date: 03/21/24 HPI 2m follow HPI Details Patient presents for the follow-up of hypertension heart failure with preserved ejection fraction COPD portal hypertension controlled on current medications. [facility] Medical History (Updated 05/17/24 @ 09:52 by Jeanne Killian MD) Bladder carcinoma Osteoporosis Annual physical exam Restrictive lung disease Pulmonary nodule Allergic rhinitis Atypical ductal hyperplasia of breast COPD (chronic obstructive pulmonary disease) Thrombocytopenia Aortic valve sclerosis Breast CA Depression Essential hypertension Portal hypertension Surgical History H/O colonoscopy History of esophagogastroduodenoscopy (EGD) History of surgery History of inguinal hernia repair Hx of cholecystectomy Family History Father No problems noted. Mother Colon cancer Sister Breast cancer Social History Housing: House Alcohol intake: current Alcohol intake frequency: holidays/special occasions only Patient Tobacco Use Status: Never used Tobacco e-Cigarette/Vaping Use: Never Used service: No Current occupational status: retired Cognitive needs: No Hearing needs: No Vision needs: Yes Questionnaire PHQ-9 Over the last 2 weeks, how often have you been bothered by any of the following problems? 3. Trouble falling or staying asleep, or sleeping too much: not at all 4. Feeling tired or having little energy: not at all Source: Developed by Drs. Alber Mcelroy, Rula Pantoja, Ranulfo Kirkpatrick and colleagues, with an educational laly from [employer]. Thrive Questionnaire Date Thrive assessed: 03/14/24 I am a: Patient What is your living situation today?: I have a steady place to live Within the past 12 months, did the food you bought not last and you didn't have the money to get more?: I choose not to answer this question Within the past 12 months, did you worry whether your food would run out before you got money to buy more?: I choose not to answer this question Do you have trouble paying for medicines?: Yes Do you have trouble getting transportation to medical appointments?: No Do you have trouble paying your heating and electricity bill?: No Do you have trouble taking care of your child, family member or friend?: No Do you have trouble with day-to-day activities such as bathing, preparing meals, shopping, managing finances, etc.?: No Are you currently unemployed and looking for a job?: No Are you interested in more education?: No Please select the resources that you would like help with: Paying for medicine Currently or been in a relationship where the following occur: I choose not to answer THRIVE Score: 0 ELENA-7 AMB Questionnaire ELENA-7 Date ELENA - 7 assessed: 03/21/24 Source: Developed by Drs. Alber Mcelroy, Rula Pantoja, Ranulfo Kirkpatrick and colleagues, with an educational laly from [employer]. Review of Systems Const All systems reviewed & are unremarkable except as noted in HPI and below Eyes Reports no additional complaints ENT Reports no additional complaints Card Reports no additional complaints Resp Reports no additional complaints GI Reports no additional complaints Reports no additional complaints Physical exam (Primary Care) Vital Signs: Last Vital Signs Temp 98.2 F 05/17/24 09:11 Pulse 70 05/17/24 09:11 Resp 18 05/17/24 09:11 BP 122/70 05/17/24 09:11 Pulse Ox 97 05/17/24 09:11 Oxygen Delivery Method Room Air 05/17/24 09:11 BMI result Body Mass Index 27.3 Tobacco/Smoking Status: Tobacco use Status Tobacco use date assessed 05/17/24 05/17/24 09:18 Patient Tobacco Use Status Never used Tobacco 05/17/24 09:18 e-Cigarette/Vaping Use Never Used 05/17/24 09:18 Thrive Assessment: Date of Thrive Assessment Date Thrive assessed 03/14/24 05/17/24 09:18 Currently or been in a relationship where the following occur: I choose not to answer Const General: no acute distress HENMT Head: Yes normal to inspection Neck Neck: Yes supple Resp Effort & Inspection: normal respiratory effort Auscultation: clear to auscultation bilaterally Cardio Rhythm: regular rhythm Heart sounds: S1 normal heart sound present and S2 normal heart sound present GI Inspection: Yes normal to inspection Palpation (GI): Soft to palpation Percussion: Yes normal to percussion Auscultation: normal bowel sounds Extrem General: Yes no clubbing, cyanosis or edema Coding Level of Care Code Est Pt Level 4 (48209) Diagnoses (HFpEF) heart failure with preserved ejection fraction I50.30 Anemia D64.9 Vitamin D deficiency E55.9 Osteoporosis M81.0 Portal hypertension K76.6 COPD (chronic obstructive pulmonary disease) J44.9 Assessment & Plan Assessment & Plan (1) (HFpEF) heart failure with preserved ejection fraction: Comment: Echo 07/2023,EF 65%, severe diastolic dysfunction, mod , mild AR, mild MR, moderate mitral of calcifications, normal pulmonary pressure Code(s): I50.30 - Unspecified diastolic (congestive) heart failure Category: Medical Plan: Continue current medications (2) Anemia: Comment: Chronic, after chemotherapy, normal iron and B12 Code(s): D64.9 - Anemia, unspecified Category: Medical Plan: Check CBC (3) Vitamin D deficiency: Code(s): E55.9 - Vitamin D deficiency, unspecified Category: Medical Plan: Continue vitamin-D supplement (4) Osteoporosis: Comment: DEXA 07/03, T SCORE -3.8 hip, took Fosamax for 5 years but stopped > 5 years, Fosamax caused stomach upset ,1st Reclast inf 05/07, pt will take Prolia for 2 yrs 04/2024 Code(s): M81.0 - Age-related osteoporosis without current pathological fracture Category: Medical Plan: Prescription for Prolia sent to the pharmacy. She was advised to continue vitamin-D supplement and weight-bearing exercises (5) Portal hypertension: Comment: Follow-up with GI with serial EGD, annual US no liver masses, splenomegaly 06/2023 Code(s): K76.6 - Portal hypertension Category: Medical Plan: Continue propranolol follow-up with GI (6) COPD (chronic obstructive pulmonary disease): Comment: Has moderately severe chronic obstructive pulmonary disease which remains very stable and controlled, She has had no acute infection or acute exacerbations in the last 6 months. Code(s): J44.9 - Chronic obstructive pulmonary disease, unspecified Category: Medical Plan: Continue Wixela Orders: Orders Vitamin D 25-OH Total Today E55.9 - Vitamin D deficiency, unspecified Comprehensive Met. Panel Today D64.9 - Anemia, unspecified, I50.30 - Unspecified diastolic (congestive) heart failure, J45.909 - Unspecified asthma, uncomplicated Complete Blood Count Auto Diff Today D64.9 - Anemia, unspecified, I50.30 - Unspecified diastolic (congestive) heart failure, J45.909 - Unspecified asthma, uncomplicated B Type Natriuretic Peptide Today D64.9 - Anemia, unspecified, I50.30 - Unspecified diastolic (congestive) heart failure, J45.909 - Unspecified asthma, uncomplicated Medications: Refilled Prolia (denosumab) 60 mg subcut [id number] 1 mL 1RF NS
--- OUTSIDE RECORDS SUMMARY | 2024-05-17 10:08 | XMS_ITS | Data Portability ---
Author Organization [facility] [address] Address [address] [place] [address] Care Team Providers Care Inclinometer Tester Name Role Phone SARANATElizabethLUCILLE Primary Care Provider Assessment No assessment recorded. Plan of Treatment Reminders Order Date Submit Date Provider Last Modified By Organization Details Last Modified Time Details Appointments None recorded. Lab None recorded. Referral None recorded. Procedures None recorded. Surgeries None recorded. Imaging None recorded. Medication Orders doxycycline hyclate 100 mg tablet 2022 023 [id number], [address] [place], [place], [id number], 3 11:56:50 benzonatate 200 mg capsule 2022 023 [id number], [address], [place], [id number], 3 11:56:50 Patient TargetsNo targets recorded. Patient Instructions Encounter Date Encounter Id Patient Instructions Last Modified By Organization Details Last Modified Time 09/11/2022 [id number] cough: care instructions [email or web address] Not available 09/11/2022 11:56:39 You are being [...] or lung pathology. Thank you for using [facility] today - please don't hesitate to contact up or return to see if you have any questions or concerns. [email or web address] Not available 09/11/2022 11:55:42 Reason for Referral None Reported. Problems Name Problem SNOMED Code Status Onset Date Resolution Date Notes Provider Name and Address Organization Details Recorded Time Congenital hepatic fibrosis 85645736 Active 2022 Allie richter PA - [facility] 3 11:21:56 Malignant neoplasm of urinary bladder 606973481 Active 2022 Allie richter PA - [facility] 3 11:22:06 Hypertensive disorder 96967162 Active 2022 Allie richter PA - [facility] 3 11:24:17 Environmental allergy 553477258 Active 2022 GINI ISBELL [facility] [place], [address] [facility] [place] - [facility] 3 11:52:00 Notes:low platelets ground g lass Problem Notes None recorded. Medical Equipment None Reported. Allergies Allergen ID Allergen Name Allergen Category Reaction Reaction Severity Criticality Documentation Date Start Date Code Code System Note Provider Name and Address Organization Details Recorded Time 896775 Compazine medicatio n Not available Not available Not available 09/11/2022 70575 6 RxNorm Allie Galeana null, PA - [facility] 3 11:19:10 999343 Fosamax medicatio n Not available Not available Not available 09/11/2022 34473 5 RxNorm Allie Galeana null, PA - [facility] 3 11:19:22 293309 Cipro medicatio n Not available Not available Not available 09/11/2022 52664 3 RxNorm Allie Galeana null, PA - [facility] 3 11:19:29 238780 Ceftin medicatio n Not available Not available Not available 09/11/2022 25157 6 RxNorm Allie Galeana null, PA - [...] Updated DateTime 3 160.02 cm 29.8 kg/m2 51560.5 2 g 5 20 /min 96 % [...] dose or 50 mcg/0.25mL dose 1 completed Allei Monfette null, PA - [facility] 09/11/2022 [...] SNOMED-CT Code Diagnosis ICD10 Code Diagnosis Note [id number] [address] [address] 01/12/2015 09:01:28 01/12/2015 09:34:14 [id number] [facility] IS[facility]LL [address] [place] [address] 09/11/2022 11:07:38 09/11/2022 11:57:33 Acute sinusitis 68617924 J01.90 Cough 47963453 R05.9 History of Chronic Bronchitis . Hypertensive disorder 38 147848 I10 Your blood pressure was elevated today [...] Member ID Guarantor Name 01/12/2015 2 [place] [facility] [place] [place] [id number] Benny Fofana [id number] Nayeli Fofana 09/11/2022 2 [place] Nayeli Fofana [id number] Nayeli Fofana 09/11/2022 1 [place] [employer] [place] Nayeli Fofana [id number] Nayeli Fofana Notes Date Note Type [...] pressure medication today. GINI ISBELL [address], [place], [address], [place] - [facility] 09/11/2022 13:31:17 OBGyn Episode No OBEpisode recorded.
--- OUTSIDE RECORDS SUMMARY | 2024-05-17 10:08 | XMS_ITS | Patient Health Record ---
[facility] Organization [facility] Address [address] [place] [address] Care Team Providers Care Education Courses Sales Representative Name Role Phone Jeanne Killian MD Primary Care Provider Unavaila ble Black, Tessa Unavailable [phone] Allergies Allergen (clinical drug ingredient) Drug/Non Drug [...] Problem Acquired hammer toe of right foot (2607831822498201) Other hammer toe(s) (acquired), right foot (M20.41) Active confirmed Problem Acquired hammer toe of left foot (2181814157945040) Other hammer toe(s) (acquired), left foot (M20.42) Active confirmed Problem 460147029674519 Hallux valgus (acquired), left foot (M20.12) Active confirmed Problem 131281387105699 Hallux valgus (acquired), right foot (M20.11) Active confirmed Problem Localized, primary osteoarthritis of the ankle and/or foot (936063841) Osteoarthritis of right ankle and foot (M19.071) Active confirmed Problem Localized, primary osteoarthritis of the ankle and/or foot (262664539) Osteoarthritis of left ankle and foot (M19.072) Active confirmed Plan Of Treatment No Information Insurance Providers Payer Name Payer Address Payer Phone Subscriber Number Group Number Insured Name Patient Relationship to Insured Coverage Start Date Coverage End Date Medicare National Govt Get Me Listed [facility] [address] [place] [address] [id number] Nayeli Fofana Self - patient is the insured [employer] [facility] [address] [place] [address] [phone] [id number] Nayeli Fofana Self - patient is the insured Medical (General) History Medical History History ICD Code Arthritis asthma Gall bladder problems High blood pressure Kidney disease Liver disease Osteoporosis Measles Mumps Chicken pox Transfusions Congenitive Hepatic Fibrosis Surgical History Surgery Date(Month/Year) Breast Surgery x2 1978,2020 kidney surgery 2016 gall bladder 2013 hernia
== END 2024-05-17 09:41 | disposition home or self-care (01) ==
PROVIDERS: PCP Internal Medicine; Visit Provider Internal Medicine
DX: I50.30 Unspecified diastolic (congestive) heart failure (principal); K76.6 Portal hypertension; J44.9 Chronic obstructive pulmonary disease, unspecified; D64.9 Anemia, unspecified; E55.9 Vitamin D deficiency, unspecified; M81.0 Age-related osteoporosis without current pathological fracture

== ENCOUNTER → 2024-05-17 09:09 | Outpatient (BNVA) | payer MEDICARE, SELFPAY | PROVIDERS: PCP Internal Medicine; Visit Provider Internal Medicine | DX: I50.30 Unspecified diastolic (congestive) heart failure (principal); D64.9 Anemia, unspecified; E55.9 Vitamin D deficiency, unspecified; M81.0 Age-related osteoporosis without current pathological fracture; K76.6 Portal hypertension; J44.9 Chronic obstructive pulmonary disease, unspecified | CPT/HCPCS: 99212 ==

== ENCOUNTER 2024-05-18 10:25 | Outpatient (REF) | payer MEDICARE, SELFPAY ==
--- OUTSIDE RECORDS SUMMARY | 2024-05-18 11:43 | XMS_ITS | Patient Health Record ---
Author Organization [facility] Address [address] [place] [address] Care Team Providers Care Communication Electronic Technician Name Role Phone Jeanne Killian MD Primary Care Provider Unavaila ble Black, Tessa Unavailable [phone] Allergies Allergen (clinical drug ingredient) Drug/Non Drug [...] Problem Acquired hammer toe of right foot (0274748307180621) Other hammer toe(s) (acquired), right foot (M20.41) Active confirmed Problem Acquired hammer toe of left foot (5718867857755077) Other hammer toe(s) (acquired), left foot (M20.42) Active confirmed Problem 292160083526219 Hallux valgus (acquired), left foot (M20.12) Active confirmed Problem 998468245663588 Hallux valgus (acquired), right foot (M20.11) Active confirmed Problem Localized, primary osteoarthritis of the ankle and/or foot (454199900) Osteoarthritis of right ankle and foot (M19.071) Active confirmed Problem Localized, primary osteoarthritis of the ankle and/or foot (148872580) Osteoarthritis of left ankle and foot (M19.072) Active confirmed Plan Of Treatment No Information Insurance Providers Payer Name Payer Address Payer Phone Subscriber Number Group Number Insured Name Patient Relationship to Insured Coverage Start Date Coverage End Date Medicare National Govt [employer] [facility] [address] [facility] [address] [id number] Nayeli Fofana Self - patient is the insured [employer] [facility] [address] [place] [address] [phone] [id number] Nayeli Fofana Self - patient is the insured Medical (General) History Medical History History ICD Code Arthritis asthma Gall bladder problems High blood pressure Kidney disease Liver disease Osteoporosis Measles Mumps Chicken pox Transfusions Congenitive Hepatic Fibrosis Surgical History Surgery Date(Month/Year) Breast Surgery x2 1978,2020 kidney surgery 2016 gall bladder 2013 hernia
--- OUTSIDE RECORDS SUMMARY | 2024-05-18 11:43 | XMS_ITS | Data Portability ---
Author Organization GINI Mckenna s [address] Address [address] [place] [address] Care Team Providers Care Lathe Sander Name Role Phone SARANATElizabethLUCILLE Primary Care Provider Assessment No assessment recorded. Plan of Treatment Reminders Order Date Submit Date Provider Last Modified By Organization Details Last Modified Time Details Appointments None recorded. Lab None recorded. Referral None recorded. Procedures None recorded. Surgeries None recorded. Imaging None recorded. Medication Orders doxycycline hyclate 100 mg tablet 2022 023 [facility] #[id number], [address] [place], [place], [id number], 3 11:56:50 benzonatate 200 mg capsule [address] [id number], [address] [place], [place], [id number], 3 11:56:50 Patient TargetsNo targets recorded. Patient Instructions Encounter Date Encounter Id Patient Instructions Last Modified By Organization Details Last Modified Time 09/11/2022 [id number] cough: care instructions [email or web address] Not available 09/11/2022 11:56:39 You are being [...] or lung pathology. Thank you for using [facility] today - please don't hesitate to contact up or return to see if you have any questions or concerns. Not available 09/11/2022 11:55:42 Reason for Referral None Reported. Problems Name Problem SNOMED Code Status Onset Date Resolution Date Notes Provider Name and Address Organization Details Recorded Time Congenital hepatic fibrosis 52574948 Active 2022 Allie richter PA - [facility] 3 11:21:56 Malignant neoplasm of urinary bladder 114801166 Active 2022 Allie richter PA - [facility] 3 11:22:06 Hypertensive disorder 49059350 Active 2022 Allie richter PA - [facility] 3 11:24:17 Environmental allergy 086882343 Active 2022 GINI ISBELL [facility] [place], [address] [facility] PA - [facility] 3 11:52:00 Notes:low platelets ground g lass Problem Notes None recorded. Medical Equipment None Reported. Allergies Allergen ID Allergen Name Allergen Category Reaction Reaction Severity Criticality Documentation Date Start Date Code Code System Note Provider Name and Address Organization Details Recorded Time 615576 Compazine medicatio n Not available Not available Not available 09/11/2022 30611 6 RxNorm Allie Galeana null, PA - [facility] 3 11:19:10 546627 Fosamax medicatio n Not available Not available Not available 09/11/2022 41271 5 RxNorm Allie Galeana null, PA - [facility] 3 11:19:22 698591 Cipro medicatio n Not available Not available Not available 09/11/2022 51057 3 RxNorm Allie Galeana null, PA - [facility] 3 11:19:29 561918 Ceftin medicatio n Not available Not available Not available 09/11/2022 91074 6 RxNorm Allie Galeana null, PA - [...] Updated DateTime 3 160.02 cm 29.8 kg/m2 52204.5 2 g 5 20 /min 96 % [...] SNOMED-CT Code Diagnosis ICD10 Code Diagnosis Note [id number] [address] [address] 01/12/2015 09:01:28 01/12/2015 09:34:14 [id number] GINI ISBELL [address] [place] [address] 09/11/2022 11:07:38 09/11/2022 11:57:33 Acute sinusitis 20976512 J01.90 Cough 21854095 R05.9 History of Chronic Bronchitis . Hypertensive disorder 38 988089 I10 Your blood pressure was elevated today [...] Member ID Guarantor Name 01/12/2015 2 [place] [facility] - [place] ([facility] [place]) [id number] Benny Fofana [id number] Nayeli Fofana 09/11/2022 2 [place] Nayeli Fofana [id number] Nayeli Fofana 09/11/2022 1 [place] B[place] [employer]MENT [employer] Nayeli Fofana [id number] Nayeli Fofana Notes Date Note Type [...] medication today. GINI ISBELL [address], [place], [address], [place] - [facility] 09/11/2022 13:31:17 OBGyn Episode No OBEpisode recorded.
[2024-05-18 13:30] LABS: Basophils Percent Auto 0.7 % (0-2); Eosinophils Absolute Auto 0.2 X10*3/uL (0.0-0.4); Eosinophils Percent Auto 3.9 % (0-4); Hematocrit 35.5 % (37.0-47.0); Hemoglobin 11.9 g/dl (12.0-16.0); Imm Gran Abs Auto 0.02 X10*3/uL (0.00-0.03); Imm Gran Pct Auto 0.4 % (0.0-0.4); Lymphocytes Percent Auto 21.6 % (20-40); MANUAL DIFF FLAG SCAN; Mean Corpuscular HGB Conc 33.5 g/dl (31.0-35.0); Mean Corpuscular Hemoglobin 30.6 pg (27.0-33.0); Mean Corpuscular Volume 91.3 fL (80.0-98.0); Mean Platelet Volume 10.7 fL (9.4-12.3); Monocytes Absolute Auto 0.3 X10*3/uL (0.1-1.2); Monocytes Percent Auto 6.1 % (2-11); Neutrophils Absolute Auto 3.1 x10*3/uL (2.0-8.3); Neutrophils Percent Auto 67.3 % (45-73); Platelet Count 152 X10*3/uL (160-400); Red Blood Count 3.89 X10*6/uL (4.20-5.50); Red Cell Distribution Width 13.1 % (11.0-16.0); SCAN SMEAR FLAG 1; White Blood Count 4.6 X10*3/uL (4.8-10.8)
[2024-05-18 13:32] LABS: B Type Natriuretic Peptide 143 pg/mL (<100)
[2024-05-18 13:55] LABS: SLIDE REVIEW VERIFIED
[2024-05-18 13:58] LABS: Alanine Aminotransferase 17 U/L (0-31); Albumin Level 3.6 g/dL (3.5-5.0); Alkaline Phosphatase 95 U/L (39-117); Anion Gap 11 (12-20); Aspartate Amino Transferase 34 U/L (5-31); Bilirubin Total 0.8 mg/dL (0.0-1.0); Blood Urea Nitrogen 19 mg/dL (9-16); Calcium 8.7 mg/dL (8.4-10.2); Carbon Dioxide 24 mmol/L (22-29); Chloride 109 mmol/L (96-108); Estimated Glomerular Filt Rate 53; Glucose Random 101 mg/dL (60-115); Potassium 4.8 mmol/L (3.3-5.1); Sodium 139 mmol/L (135-145); Total Protein 7.1 g/dL (6.5-8.0)
[2024-05-18 14:17] LABS: Vitamin D 25-OH Total 43.2 ng/mL (>30)
== END 2024-05-18 10:26 | disposition home or self-care (01) ==
LOC: HO.HMGCLDS 10:25
PROVIDERS: PCP Internal Medicine; Visit Provider Internal Medicine
DX: I50.30 Unspecified diastolic (congestive) heart failure (principal); E55.9 Vitamin D deficiency, unspecified; D64.9 Anemia, unspecified; J45.909 Unspecified asthma, uncomplicated
CPT/HCPCS: 36415; 80053; 82306; 83880; 85025

== ENCOUNTER 2024-06-12 11:06 | Inpatient (IN) | payer MEDICARE, SELFPAY ==
[2024-06-12] VITALS (10 sets, daily range): BP systolic 120–161; BP diastolic 45–77; PULSE 73–88; RESP 16–26; TEMP 36.7–38.2; O2SAT 85–99; BMI 28.3; BMI 28.9
--- NOTE | ~2024-06-12 | XR_ITS ---
EXAMINATION: XR CHEST 2 VIEWS HISTORY: sob/lethargy COMPARISON: Comparison is made with the prior examination dated 02/16/2021. FINDINGS: AP and lateral views of the chest are submitted. There is airspace opacity in the right upper and middle lobes, consistent with pneumonia. The left lung is clear. There is a trace right pleural effusion. There is no pneumothorax or pulmonary vascular congestion. The heart is enlarged. There is degenerative disc disease of the spine. XR/XR chest 2V IMPRESSION: Cardiomegaly. Right upper and middle lobe pneumonia. Trace right pleural effusion. Follow-up is recommended to document resolution. Electronically signed by: Alber Gaxiola MD 06/12/2024 11:52 AM EDT
--- NOTE | 2024-06-12 11:32 | ECG_ITS ---
Test Reason : lethargic Blood Pressure : */* mmHG Vent. Rate : 76 BPM Atrial Rate : 76 BPM P-R Int : 166 ms QRS Dur : 78 ms QT Int : 416 ms P-R-T Axes : 55 13 41 degrees QTcB Int : 468 ms Normal sinus rhythm Normal ECG No previous ECGs available Referred By: Generic ED Physician Electronically Signed By: GLADYS VASQUEZ
--- NOTE | 2024-06-12 11:41 | PC.NURSE ---
daughter at bedside reporting that her mother called her this morning and stated that she was unable to get herself out of bed and that her speech sounded slower. states that she was incontinent of urine and stool which is abnormal for her. states she does have hx copd and chf and has wheezing at baseline.
--- NOTE | 2024-06-12 11:55 | ED.GENADULT ---
HPI - General Adult General Chief complaint: General Medical Stated complaint: WEAK,DIFF BREATHING 84% RA,GETTING O2 AND TX Time Seen by Provider: 06/12/24 11:43 Source: patient, family ( Daughter) and EMS Mode of arrival: EMS Limitations: no limitations History of Present Illness ED Provider: DR. Baeza HPI narrative: 73-year-old female Past medical history significant for bladder cancer, restrictive lung disease, COPD, breast CA, HTN. brought in by ambulance for evaluation of generalized weakness, dry cough, subjective fever, disoriented with confusion, patient recently exposed to 2 family member with flu a. No CP no abdominal pain. Related Data Previous Rx's ?Medication ?Instructions ?Recorded albuterol sulfate 90 mcg/actuation 2 puff inhalation Q6H PRN 03/21/23 aerosol inhaler shortness of breath or wheezing 30 days #8.5 grams dcrvcsls-jiqpmlemw-xomrmyzqr 3.5 4 drp otic (ear) left Q8H 5 days 06/23/23 mg-10,000 unit/mL-1 % ear #10 mL drops,susp lisinopril 40 mg tablet 40 mg PO DAILY #90 tabs 11/21/23 furosemide 20 mg tablet 60 mg (3 x 20 mg) PO DAILY #180 12/02/23 tabs spironolactone 50 mg tablet 50 mg PO DAILY #90 tabs 02/01/24 dapagliflozin propanediol 10 mg 10 mg PO QAM #90 tabs 03/21/24 tablet fluticasone furoate 200 1 inh inhalation DAILY copd 30 04/25/24 mcg-vilanterol 25 mcg/dose days #60 ea inhalation powder (Breo Ellipta) fluticasone 250 mcg-salmeterol 50 1 inh inhalation BID COPD 30 days 05/01/24 mcg/dose blistr powdr for #60 ea inhalation (Wixela Inhub) hydralazine 25 mg tablet See Rx Instructions PO TID #135 05/01/24 tabs omeprazole 40 mg capsule,delayed 40 mg PO DAILY #90 caps 05/01/24 release propranolol 20 mg tablet 20 mg PO BID #180 tabs 05/01/24 sertraline 50 mg tablet 50 mg PO DAILY #90 tabs 05/01/24 Allergies Allergy/AdvReac Type Severity Reaction Status Date / Time cefotetan Allergy Unknown unknown Verified 06/12/24 11:29 cefuroxime [From Ceftin] Allergy Unknown Unknown Verified 06/12/24 11:29 ciprofloxacin [Cipro] Allergy Unknown unknown Verified 06/12/24 11:29 latex Allergy Unknown Unknown Verified 06/12/24 11:29 moxifloxacin [From Avelox] Allergy Unknown Unknown Verified 06/12/24 11:29 prochlorperazine Allergy Unknown Unknown Verified 06/12/24 11:29 [From Compazine] alendronate sodium AdvReac Intermediate Stomach Verified 06/12/24 11:29 Upset amlodipine AdvReac Abdominal Uncoded 05/17/24 09:13 Pain Review of Systems Review of Systems: all other systems are reviewed and are negative Constitutional: Reports as per HPI and Reports no additional constitutional complaints Eyes: Reports as per HPI and Reports no additional eye complaints Reports system reviewed and no additional complaints, except as documented Cardiovascular: Reports as per HPI and Reports no additional cardiovascular complaints Respiratory: Reports as per HPI and Reports no additional respiratory complaints Gastrointestinal: Reports as per HPI and Reports no additional gastrointestinal complaints Genitourinary: Reports no additional female genitourinary complaints Musculoskeletal: Reports no additional musculoskeletal complaints Skin/Breast: Reports system reviewed and no additional complaints, except as docu Psychiatric: Reports no additional psychiatric complaints Endocrine: Reports no additional endocrine complaints Hematologic/Lymphatic: Reports no additional hematologic/lymphatic complaints Allergic/Immunologic: Reports no additional allergic/immunologic complaints Reports system reviewed and no additional complaints, except as documented and Reports Abnormal speech present [facility] Past Medical History Medical History Bladder carcinoma Osteoporosis Annual physical exam Restrictive lung disease Pulmonary nodule Allergic rhinitis Atypical ductal hyperplasia of breast COPD (chronic obstructive pulmonary disease) Thrombocytopenia Aortic valve sclerosis Breast CA Depression Essential hypertension Portal hypertension Surgical History H/O colonoscopy History of esophagogastroduodenoscopy (EGD) History of surgery History of inguinal hernia repair Hx of cholecystectomy Family History Family History Father No problems noted. Mother Colon cancer Sister Breast cancer Social History Social History Housing: House Alcohol intake: current Alcohol intake frequency: holidays/special occasions only Patient Tobacco Use Status: Never used Tobacco e-Cigarette/Vaping Use: Never Used Advance Directives: No Advance Directives Information Provided: Yes Do you have a plan to hurt others: No Plan service: No Current occupational status: retired Cognitive needs: No Hearing needs: No Vision needs: Yes Physical Exam ED Vital Signs: Vital Signs - 24 hr 06/12/24 11:28 06/12/24 14:09 Temperature 98.2 F 98.6 F Pulse Rate 76 79 Respiratory Rate 16 16 Blood Pressure 120/45 L 138/56 L Pulse Oximetry 93 96 Oxygen Delivery Method Room Air Nasal Cannula Oxygen Flow Rate 2 BMI result Body Mass Index 28.9 Vital signs have been reviewed and appear to be correct. Blood pressure elevated. Heart rate normal. Respiratory rate normal. Temperature normal. Oxygen saturation normal. Appearance: Alert. Oriented X3. No acute distress. Head: Normal external exam. Normocephalic. Atraumatic. No Arora signs noted. No raccoon eyes noted Eyes: PERRLA. EOMI. Conjunctiva and sclera normal. Eyelids normal. ENT: TM's Normal. Pharynx normal. Uvula midline. Moist mucous membranes. No trismus noted. No drooling noted. No muffled voice noted. Neck: Normal inspection. Neck supple. FROM. No adenopathy. Thyroid Normal. No meningeal signs. No neck mass noted. CVS: Normal heart rate and rhythm. Heart sound normal. No murmurs noted. Pulses normal throughout. Respiratory: No respiratory distress. Painless inspiration. Breath sounds normal. No wheezes/rales/rhonchi noted. Chest nontender. No accessory muscle usage noted or decreased air movement noted. Abdomen: Soft and nontender. Bowel sounds normal in all 4 quadrants. No distention noted. No organomegaly noted. No visible injury noted. Back: No CVA tenderness. Full range of motion noted. Skin: Skin warm and dry. Normal skin color. Normal skin turgor. No rashes/lesions/lacerations noted. Extremities: No lower extremity edema. Extremities exhibit normal range of motion. Extremities nontender. Neuro: Oriented X 3. Cranial nerve exam: II-XII are grossly intact No motor deficit. No sensory deficit. Reflexes normal. Course Reevaluation(s) Reevaluation #1: 73-year-old female brought in for generalized weakness, upper respiratory symptoms with history of exposure to 2 family member with flu A. Patient initially found to be hypoxic by EMS 81% on room air, improved with 2 L of oxygen. chest x-ray is consistent with multilobar pneumonia on right side. Time: 14:00 Reevaluation #2: elevated troponin, no chest pain, no ST elevation on the EKG, case discussed with Dr. Munguia recommended to start heparin, statin, aspirin. Multilobar pneumonia with no SIRS. Positive for flu. Time: 15:31 Medications Administered Generic Name Dose Route Start Last Admin Trade Name Freq PRN Reason Stop Dose Admin Heparin Sodium/Sodium Chloride 25,000 unit in 250 mls @ 0 mls/hr 06/12/24 14:00 06/12/24 15:05 Heparin Sodium,Porcine/1/2ns IVCONT 12 units/kg/hr .Q0M CHUCK 8.71 mls/hr Administration Protocol Per Protocol Discontinued Medications Generic Name Dose Route Start Last Admin Trade Name Freq PRN Reason Stop Dose Admin Aspirin 81 mg 06/12/24 14:01 06/12/24 14:33 Aspirin Enteric Coated 81 Mg Tablet. PO 06/12/24 14:02 81 mg ONCE ONE Administration Atorvastatin Calcium 80 mg 06/12/24 14:01 06/12/24 14:33 Atorvastatin Calcium 80 Mg Tablet PO 06/12/24 14:02 80 mg ONCE ONE Administration Ceftriaxone Sodium 1 gm 06/12/24 12:05 06/12/24 14:32 Ceftriaxone Sodium 1 Gm Vial IVPUSH 06/12/24 12:06 1 gm ONCE ONE Administration Heparin Sodium (Porcine) 4,000 unit 06/12/24 13:56 06/12/24 14:32 Heparin Sodium,Porcine 5,000 Unit/Ml Vial IVPUSH 06/12/24 13:57 4,000 unit ONCE ONE Administration Medical Decision Making Differential Diagnosis Differential Diagnoses: The differential diagnosis associated with the presentation includes ( pneumonia, pneumothorax, pleural effusion, CHF, ACS, influenza, COVID-19, RSV, electrolyte derangement, severe dehydration, severe anemia.) Admission/Observation Consideration of admission/observation: Escalation of care including admission/observation considered Consult Healthcare Provider Management of the patient was discussed with: Hospitalist ( Dr. Gee) Lab Data MDM Lab Attestation statement: I reviewed the patient's lab results. 06/12/24 14:37 06/12/24 14:37 Labs: Lab Results 06/12/24 06/12/24 06/12/24 Range/Units 12:07 13:02 14:37 WBC 4.3 L (4.8-10.8) X10*3/uL RBC 3.08 L D (4.20-5.50) X10*6/uL Hgb 9.7 L (12.0-16.0) g/dl Hct 28.3 L D (37.0-47.0) % MCV 91.9 (80.0-98.0) fL MCH 31.5 (27.0-33.0) pg MCHC 34.3 (31.0-35.0) g/dl RDW 13.7 (11.0-16.0) % Plt Count 67 L D (160-400) X10*3/uL MPV 9.6 (9.4-12.3) fL Immature Gran % (Auto) 0.5 H (0.0-0.4) % Neut % (Auto) 85.1 H (45-73) % Lymph % (Auto) 9.3 L (20-40) % [place] % (Auto) 4.9 (2-11) % Eos % (Auto) 0.0 (0-4) % Baso % (Auto) 0.2 (0-2) % Lymph # (Auto) 0.4 L (1.2-4.9) X10*3/uL [place] # (Auto) 0.2 (0.1-1.2) X10*3/uL Eos # (Auto) 0.0 (0.0-0.4) X10*3/uL Baso # (Auto) 0.0 (0.0-0.2) X10*3/uL Abs Immat Gran (auto) 0.02 (0.00-0.03) X10*3/uL Absolute Neuts (auto) 3.7 (2.0-8.3) x10*3/uL Absolute Nucleated RBC 0.000 (0.0-0.012) X10*3/uL Nucleated RBC % (auto) 0.0 (0.0-0.2) /100WBC PT 14.3 H (10.9-12.4) SEC INR (0.9-1.1) aPTT Heparin Protocol (53-77.9) SEC Sodium (135-145) mmol/L Potassium (3.3-5.1) mmol/L Chloride (96-108) mmol/L Carbon Dioxide (22-29) mmol/L Anion Gap (12-20) BUN (9-16) mg/dL Creatinine (0.5-1.4) mg/dL Estim Creat Clear Calc Estimated GFR Random Glucose (60-115) mg/dL Calcium (8.4-10.2) mg/dL Total Bilirubin (0.0-1.0) mg/dL AST (5-31) U/L ALT (0-31) U/L Alkaline Phosphatase (39-117) U/L Troponin I High Sens 1483.9 H* D (<3.5-17.0) ng/L Total Protein (6.5-8.0) g/dL Albumin (3.5-5.0) g/dL Influenza Type A (PCR) POSITIVE A (Negative) Influenza Type B (PCR) NEGATIVE (Negative) RSV RNA Qual (PCR) NEGATIVE (Negative) SARS-CoV-2 RNA (RT-PCR) NEGATIVE (Negative) 06/12/24 06/12/24 Range/Units 14:37 14:37 WBC (4.8-10.8) X10*3/uL RBC (4.20-5.50) X10*6/uL Hgb (12.0-16.0) g/dl Hct (37.0-47.0) % MCV (80.0-98.0) fL MCH (27.0-33.0) pg MCHC (31.0-35.0) g/dl RDW (11.0-16.0) % Plt Count (160-400) X10*3/uL MPV (9.4-12.3) fL Immature Gran % (Auto) (0.0-0.4) % Neut % (Auto) (45-73) % Lymph % (Auto) (20-40) % [place] % (Auto) (2-11) % Eos % (Auto) (0-4) % Baso % (Auto) (0-2) % Lymph # (Auto) (1.2-4.9) X10*3/uL [place] # (Auto) (0.1-1.2) X10*3/uL Eos # (Auto) (0.0-0.4) X10*3/uL Baso # (Auto) (0.0-0.2) X10*3/uL Abs Immat Gran (auto) (0.00-0.03) X10*3/uL Absolute Neuts (auto) (2.0-8.3) x10*3/uL Absolute Nucleated RBC (0.0-0.012) X10*3/uL Nucleated RBC % (auto) (0.0-0.2) /100WBC PT Cancelled (10.9-12.4) SEC INR 1.2 H Cancelled (0.9-1.1) aPTT Heparin Protocol 32.4 L (53-77.9) SEC Sodium 141 (135-145) mmol/L Potassium 4.0 (3.3-5.1) mmol/L Chloride 113 H (96-108) mmol/L Carbon Dioxide 22 (22-29) mmol/L Anion Gap 10 L (12-20) BUN 29 H (9-16) mg/dL Creatinine 1.03 (0.5-1.4) mg/dL Estim Creat Clear Calc 45.5 Estimated GFR 52 Random Glucose 114 (60-115) mg/dL Calcium 8.1 L D (8.4-10.2) mg/dL Total Bilirubin 0.5 (0.0-1.0) mg/dL AST 46 H (5-31) U/L ALT 15 (0-31) U/L Alkaline Phosphatase 75 (39-117) U/L Troponin I High Sens (<3.5-17.0) ng/L Total Protein 5.7 L (6.5-8.0) g/dL Albumin 3.1 L (3.5-5.0) g/dL Influenza Type A (PCR) (Negative) Influenza Type B (PCR) (Negative) RSV RNA Qual (PCR) (Negative) SARS-CoV-2 RNA (RT-PCR) (Negative) Independent Interpretation I performed an independent interpretation of an: Plain X-Ray ( chest:Cardiomegaly. Right upper and middle lobe pneumonia. Trace right pleural effusion. Follow-up is recommended to document resolution.) Radiology Impression Discussion of test interpretation with radiology: I have reviewed the radiologist's reading. Critical Care Time Critical Care Time Critical Care Time: Yes Total Critical Care Time: 60 Attestation: The patient was critically ill with a high probability of imminent or life-threatening deterioration. I spent greater than 30 minutes of discontinuous time evaluating the patient, delivering critical care at the bedside, discussing evaluating data with consultants. Critical care time does not include time spent performing separately billable procedures or teaching. Time spent performing critical care was 60 minutes. Discharge Plan Discharge Clinical Impression: Pneumonia, Influenza A, Non-ST elevation [place] (NSTEMI) Patient Disposition: Admitted As Inpatient Prescriptions: No Action lisinopril 40 mg tablet 40 mg PO DAILY Qty: 90 3RF fluticasone furoate-vilanterol [Breo Ellipta] 200-25 mcg/dose blister with device 1 inh inhalation DAILY 30 Days Qty: 60 3RF omeprazole 40 mg capsule,delayed release(DR/EC) 40 mg PO DAILY Qty: 90 3RF propranolol 20 mg tablet 20 mg PO BID Qty: 180 3RF sertraline 50 mg tablet 50 mg PO DAILY Qty: 90 3RF hydralazine 25 mg tablet See Rx Instructions PO TID Qty: 135 3RF Rx Instructions: 1/2 orally 3 times a day; 1/2 tab fluticasone propion-salmeterol [Wixela Inhub] 250-50 mcg/dose blister with device 1 inh inhalation BID 30 Days Qty: 60 4RF axijocts-lvznusvxa-NV 3.5-10,000-1 mg/mL-unit/mL-% drops,suspension 4 drp otic (ear) left Q8H 5 Days Qty: 10 0RF furosemide 20 mg tablet 60 mg PO DAILY Qty: 180 3RF dapagliflozin propanediol 10 mg tablet 10 mg PO QAM Qty: 90 2RF albuterol sulfate 90 mcg/actuation HFA aerosol inhaler 2 puff inhalation Q6H PRN (Reason: shortness of breath or wheezing) 30 Days Qty: 8.5 3RF spironolactone 50 mg tablet 50 mg PO DAILY Qty: 90 1RF Print Language: Citizen Of [place]
--- NOTE | 2024-06-12 12:45 | PC.NURSE ---
Patient presents from home per daughter. Was at [facility] yesterday and was fine but attempted to call her this morning and patient did not answer. Needed to call EMS in order to get into the house. Daughter states she did not appear like herself . History of a little COPD. Alert and oriented but tired. Lungs essentially clear but diminshed. Respirations even and non-labored. Abdomen soft, non-tender with positive bowel sounds. Positive pedal pulses with no edema. Daughter at the bedside.
[2024-06-12 12:57] LABS: Influenza A PCR POSITIVE (Negative); Influenza B PCR NEGATIVE (Negative); Resp Syncy Virus RNA Qual PCR NEGATIVE (Negative); SARS COV2 PCR INHOUSE NEGATIVE (Negative)
--- NOTE | 2024-06-12 13:40 | PC.NURSE ---
Multiple attempts made to obtain labwork without success. Able to insert a PIV site and second PIV site via U/S. Phlebotomy notified.
[2024-06-12 13:43] LABS: Troponin-I High Sensitivity 1483.9 ng/L (<3.5-17.0)
[2024-06-12] MEDS: Heparin Sodium,Porcine 5,000 UNIT/ML VIAL 4000 UNIT IVPUSH (14:32)
[2024-06-12] MEDS: cefTRIAXone sodium 1 GM VIAL IVPUSH (14:32)
[2024-06-12] MEDS: Atorvastatin Calcium 80 MG TABLET PO (14:33)
[2024-06-12] MEDS: Aspirin Enteric Coated 81 MG TABLET.DR PO (14:33)
[2024-06-12 14:41] LABS: MANUAL DIFF FLAG NO
[2024-06-12 14:44] LABS: Basophils Percent Auto 0.2 % (0-2); Hematocrit 28.3 % (37.0-47.0); Hemoglobin 9.7 g/dl (12.0-16.0); Imm Gran Abs Auto 0.02 X10*3/uL (0.00-0.03); Imm Gran Pct Auto 0.5 % (0.0-0.4); Lymphocytes Absolute Auto 0.4 X10*3/uL (1.2-4.9); Lymphocytes Percent Auto 9.3 % (20-40); Mean Corpuscular HGB Conc 34.3 g/dl (31.0-35.0); Mean Corpuscular Hemoglobin 31.5 pg (27.0-33.0); Mean Corpuscular Volume 91.9 fL (80.0-98.0); Mean Platelet Volume 9.6 fL (9.4-12.3); Monocytes Absolute Auto 0.2 X10*3/uL (0.1-1.2); Monocytes Percent Auto 4.9 % (2-11); Neutrophils Absolute Auto 3.7 x10*3/uL (2.0-8.3); Neutrophils Percent Auto 85.1 % (45-73); Platelet Count 67 X10*3/uL (160-400); Red Blood Count 3.08 X10*6/uL (4.20-5.50); Red Cell Distribution Width 13.7 % (11.0-16.0); White Blood Count 4.3 X10*3/uL (4.8-10.8)
[2024-06-12 14:50] LABS: INTERNATIONAL NORM RATIO 1.2 (0.9-1.1); Prothrombin Time 14.3 SEC (10.9-12.4)
[2024-06-12 14:53] LABS: PTT Heparin Drip 32.4 SEC (53-77.9)
[2024-06-12 15:02] LABS: Alanine Aminotransferase 15 U/L (0-31); Albumin Level 3.1 g/dL (3.5-5.0); Alkaline Phosphatase 75 U/L (39-117); Anion Gap 10 (12-20); Aspartate Amino Transferase 46 U/L (5-31); Bilirubin Total 0.5 mg/dL (0.0-1.0); Blood Urea Nitrogen 29 mg/dL (9-16); Calcium 8.1 mg/dL (8.4-10.2); Carbon Dioxide 22 mmol/L (22-29); Chloride 113 mmol/L (96-108); Creatinine Clr Calc Pharmacy 45.5; Estimated Glomerular Filt Rate 52; Glucose Random 114 mg/dL (60-115); Sodium 141 mmol/L (135-145); Total Protein 5.7 g/dL (6.5-8.0)
[2024-06-12] MEDS: Heparin Sodium,Porcine/1/2NS 25,000 UNIT/250 ML IV.SOLN 8.71 UNIT IVCONT (15:05)
[2024-06-12 15:40] LABS: B Type Natriuretic Peptide 1759 pg/mL (<100)
--- OUTSIDE RECORDS SUMMARY | 2024-06-12 16:11 | XMS_ITS | Data Portability ---
Author Organization GINI Mckenna s [address] Address [address] [place] [address] Care Team Providers Care Legal Document Assistant Name Role Phone SARANATElizabethLUCILLE Primary Care Provider [phone] Assessment No assessment recorded. Plan of Treatment Reminders Order Date Submit Date Provider Last Modified By Organization Details Last Modified Time Details Appointments None recorded. Lab None recorded. Referral None recorded. Procedures None recorded. Surgeries None recorded. Imaging None recorded. Medication Orders doxycycline hyclate 100 mg tablet 2022 023 CAMELIA [facility] [employer] [facility] #[id number], [address], [place], [id number], 3 11:56:50 benzonatate 200 mg capsule 2022 023 [id number], [address] [place], [place], [phone], 3 11:56:50 Patient TargetsNo targets recorded. Patient Instructions Encounter Date Encounter Id Patient Instructions Last Modified By Organization Details Last Modified Time 09/11/2022 [id number] cough: care instructions [email or web address] Not available 09/11/2022 11:56:39 You are being [...] or lung pathology. Thank you for using [facility] today - please don't hesitate to contact up or return to see if you have any questions or concerns. [email or web address] Not available 09/11/2022 11:55:42 Reason for Referral None Reported. Problems Name Problem SNOMED Code Status Onset Date Resolution Date Notes Provider Name and Address Organization Details Recorded Time Congenital hepatic fibrosis 77057331 Active 2022 Allie richter PA - [facility] 3 11:21:56 Malignant neoplasm of urinary bladder 200303213 Active 2022 Allie richter PA - [facility] 3 11:22:06 Hypertensive disorder 22806922 Active 2022 Allie richter PA - [facility] 3 11:24:17 Environmental allergy 544008761 Active 2022 GINI ISBELL [facility] [place], [address] [facility] PA - [facility] 3 11:52:00 Notes:low platelets ground g lass Problem Notes None recorded. Medical Equipment None Reported. Allergies Allergen ID Allergen Name Allergen Category Reaction Reaction Severity Criticality Documentation Date Start Date Code Code System Note Provider Name and Address Organization Details Recorded Time 529490 Compazine medicatio n Not available Not available Not available 09/11/2022 21632 6 RxNorm Allie Galeana null, PA - [facility] 3 11:19:10 796471 Fosamax medicatio n Not available Not available Not available 09/11/2022 88255 5 RxNorm Allie Galeana null, PA - [facility] 3 11:19:22 273601 Cipro medicatio n Not available Not available Not available 09/11/2022 22494 3 RxNorm Allie Galeana null, PA - [facility] 3 11:19:29 035223 Ceftin medicatio n Not available Not available Not available 09/11/2022 85419 6 RxNorm Allie Galeana null, PA - [...] Updated DateTime 3 160.02 cm 29.8 kg/m2 98257.5 2 g 5 20 /min 96 % [...] SNOMED-CT Code Diagnosis ICD10 Code Diagnosis Note [id number] [address] [address] 01/12/2015 09:01:28 01/12/2015 09:34:14 [id number] GINI ISBELL [address] [place] [address] 09/11/2022 11:07:38 09/11/2022 11:57:33 Acute sinusitis 27598692 J01.90 Cough 29122202 R05.9 History of Chronic Bronchitis . Hypertensive disorder 38 516226 I10 Your blood pressure was elevated today [...] ID Guarantor Name 01/12/2015 2 [place] [facility] [place] ([facility] [place] [id number] Benny Fofana [id number] Nayeli Fofana 09/11/2022 2 [place] Nayeli Fofana [id number] Nayeli Fofana 09/11/2022 1 [place] B[place]ERNMENT [place] Nayeli Fofana [id number] Nayeli Fofana Notes Date Note Type [...] medication today. GINI ISBELL [address], [place], [address], [place] - [facility] 09/11/2022 13:31:17 OBGyn Episode No OBEpisode recorded.
--- OUTSIDE RECORDS SUMMARY | 2024-06-12 16:11 | XMS_ITS | Patient Health Record ---
[facility] Address [address] [facility] [place] [address] Care Team Providers Care Purchasing Expeditor Name Role Phone Jeanne Killian MD Primary Care Provider Unavaila ble Black, Tessa Unavailable [phone] Allergies Allergen (clinical drug ingredient) Drug/Non Drug [...] Problem Acquired hammer toe of right foot ([id number]) Other hammer toe(s) (acquired), right foot (M20.41) Active confirmed Problem Acquired hammer toe of left foot (9452604028087957) Other hammer toe(s) (acquired), left foot (M20.42) Active confirmed Problem [id number] Hallux valgus (acquired), left foot (M20.12) Active confirmed Problem [id number] Hallux valgus (acquired), right foot (M20.11) Active confirmed Problem Localized, primary osteoarthritis of the ankle and/or foot (859316885) Osteoarthritis of right ankle and foot (M19.071) Active confirmed Problem Localized, primary osteoarthritis of the ankle and/or foot (843597512) Osteoarthritis of left ankle and foot (M19.072) Active confirmed Plan Of Treatment No Information Insurance Providers Payer Name Payer Address Payer Phone Subscriber Number Group Number Insured Name Patient Relationship to Insured Coverage Start Date Coverage End Date Medicare National Govt [employer] [facility] [address] [place] [address] [id number] Nayeli Fofana Self - patient is the insured [employer] [facility] [address] [place] [address] [id number] Nayeli Fofana Self - patient is the insured Medical (General) History Medical History History ICD Code Arthritis asthma Gall bladder problems High blood pressure Kidney disease Liver disease Osteoporosis Measles Mumps Chicken pox Transfusions Congenitive Hepatic Fibrosis Surgical History Surgery Date(Month/Year) Breast Surgery x2 1978,2020 kidney surgery 2016 gall bladder 2013 hernia
--- NOTE | 2024-06-12 16:16 | PHA.MEDREC ---
Addendum entered by gNoc Ag 06/12/24 16:51: Spoke with patient and she confirmed she is taking 2 tabs (40mg) of the Lasix daily. Addendum entered by Mary Garza RPh 06/12/24 16:29: reviewed by [facility], following up on lasix dosing 40 or 60mg, will update to reflect once confirmed. Original Note: Pharmacy Consult ? Medication Reconciliation Pharmacy has completed the medication reconciliation. Spoke with patient and patients family at bedside who was able to use a list from [facility] Mail order services to confirm the med rec. The patient confirmed the Farxiga is getting mail ordered (and was on the Rx list on the daughters phone) and confirmed she takes 10mg tab once daily. The patient confirmed she takes the Wixela inhaler 1 puff twice a day and does not take the Breo Ellipta anymore. The patient confirmed she takes a Multivitamin tablet once daily and a Vitamin D3 tablet once a day but the patient nor family knew the dose at this time. The patient stated she last took her medications last night.
--- NOTE | 2024-06-12 16:17 | PM.IMHP ---
History of Present Illness Date of Service: 06/12/24 Chief Complaint: Cough 73-year-old woman presenting from home with weakness, upper respiratory symptoms after being exposed to flu a from family members. She reports that she lives alone and since Tuesday she has felt weak, tired and has had a cough. She denied chest pain, shortness of breath, nausea, vomiting, diarrhea, fever, chills, recent travel. Apparently patient was hypoxic via EMS at 81% on room air but improved with 2 L nasal cannula. Chest x-ray consistent with multilobar pneumonia with cardiomegaly. Initial troponin 1483.9, BNP 1759, flu A positive, no fever leukocytosis was stable blood pressure. In the ER patient was given a dose of Rocephin, started on IV heparin drip, aspirin, statin, doxycycline. Patient will be admitted for further management of NSTEMI, pneumonia and influenza A. Review of Systems Review of Systems: Denies any recent fever chills or decrease in appetite respiratory denies any shortness of breath cardiovascular denied chest pain or edema gastrointestinal denies any dysphagia abdominal pain nausea vomiting or diarrhea genitourinary denies any dysuria frequency or hematuria musculoskeletal denies any joint pain or swelling neuropsych denies any weakness or seizures all other systems reviewed are negative [facility] Medical History Bladder carcinoma Osteoporosis Annual physical exam Restrictive lung disease Pulmonary nodule Allergic rhinitis Atypical ductal hyperplasia of breast COPD (chronic obstructive pulmonary disease) Thrombocytopenia Aortic valve sclerosis Breast CA Depression Essential hypertension Portal hypertension Family History Father No problems noted. Mother Colon cancer Sister Breast cancer Surgical History H/O colonoscopy History of esophagogastroduodenoscopy (EGD) History of surgery History of inguinal hernia repair Hx of cholecystectomy Social History Housing: House Alcohol intake: current Alcohol intake frequency: holidays/special occasions only Patient Tobacco Use Status: Never used Tobacco e-Cigarette/Vaping Use: Never Used Advance Directives: No Advance Directives Information Provided: Yes Do you have a plan to hurt others: No Plan service: No Current occupational status: retired Cognitive needs: No Hearing needs: No Vision needs: Yes Meds Allergies Allergy/AdvReac Type Severity Reaction Status Date / Time cefotetan Allergy Unknown unknown Verified 06/12/24 11:29 cefuroxime [From Ceftin] Allergy Unknown Unknown Verified 06/12/24 11:29 ciprofloxacin [Cipro] Allergy Unknown unknown Verified 06/12/24 11:29 latex Allergy Unknown Unknown Verified 06/12/24 11:29 moxifloxacin [From Avelox] Allergy Unknown Unknown Verified 06/12/24 11:29 prochlorperazine Allergy Unknown Unknown Verified 06/12/24 11:29 [From Compazine] alendronate sodium AdvReac Intermediate Stomach Verified 06/12/24 11:29 Upset amlodipine AdvReac Abdominal Uncoded 05/17/24 09:13 Pain Active Medications: Current Medications Heparin Sodium (Porcine) (Heparin Sodium,Porcine 5,000 Unit/Ml Vial) 2,900 unit 40 unit/kg (2900 unit) IVPUSH PROTOCOL BOLUS PRN; Protocol PRN Reason: 40 unit/kg - Heparin Protocol Heparin Sodium (Porcine) (Heparin Sodium,Porcine 5,000 Unit/Ml Vial) 5,800 unit 80 unit/kg (5800 unit) IVPUSH PROTOCOL BOLUS PRN; Protocol PRN Reason: 80 unit/kg - Heparin Protocol Heparin Sodium/Sodium Chloride (Heparin Sodium,Porcine/1/2ns) 25,000 unit in 250 mls @ 0 mls/hr IVCONT .Q0M [facility]; Protocol Last Admin: 06/12/24 15:05 Dose: 12 units/kg/hr, 8.71 mls/hr Home Medications ?Medication ?Instructions ?Recorded ?Confirmed ?Last Taken ?Type cholecalciferol (vitamin D3) 25 25 mcg PO DAILY 06/12/24 06/12/24 Unknown History mcg (1,000 unit) tablet (Vitamin D3) dapagliflozin propanediol 10 mg 10 mg PO DAILY 06/12/24 06/12/24 06/11/24 History tablet furosemide 20 mg tablet 40 mg PO DAILY 06/12/24 06/12/24 06/11/24 History hydralazine 25 mg tablet 12.5 mg PO TID 06/12/24 06/12/24 Unknown History multivitamin 1 tab PO DAILY 06/12/24 06/12/24 06/11/24 History omeprazole 40 mg capsule,delayed 40 mg PO DAILY@0630 06/12/24 06/12/24 06/11/24 History release Physical Exam Vital Signs and Narrative: Vital Signs: Last Vital Signs Temp 98.6 F 06/12/24 14:09 Pulse 79 06/12/24 14:09 Resp 16 06/12/24 14:09 BP 138/56 L 06/12/24 14:09 Pulse Ox 96 06/12/24 14:09 O2 Del Method Nasal Cannula 06/12/24 14:09 O2 Flow Rate 2 06/12/24 14:09 BMI result Body Mass Index 28.9 Appearing in no acute distress head is normocephalic atraumatic eyes pupils are PERRLA sclera is anicteric mouth throat mucous membranes are intact and moist neck is supple no lymphadenopathy, no JVD noted lung sounds expiratory wheezing heart regular rate rhythm, clear S1, S2 positive bowel sounds, abdomen is soft, nontender neuro patient is alert x3, no focal deficits Results Labs 06/12/24 14:37 06/12/24 14:37 Labs: Laboratory Results - last 24 hr 06/12/24 06/12/24 06/12/24 12:07 14:37 14:37 MCV 91.9 MCH 31.5 MCHC 34.3 RDW 13.7 Plt Count 67 L D MPV 9.6 Immature Gran % (Auto) 0.5 H Neut % (Auto) 85.1 H Lymph % (Auto) 9.3 L [place] % (Auto) 4.9 Eos % (Auto) 0.0 Baso % (Auto) 0.2 Lymph # (Auto) 0.4 L [place] # (Auto) 0.2 Eos # (Auto) 0.0 Baso # (Auto) 0.0 Abs Immat Gran (auto) 0.02 Absolute Neuts (auto) 3.7 Absolute Nucleated RBC 0.000 Nucleated RBC % (auto) 0.0 PT 14.3 H Cancelled INR 1.2 H aPTT Heparin Protocol Anion Gap Estim Creat Clear Calc Estimated GFR Random Glucose Calcium Total Bilirubin AST ALT Alkaline Phosphatase B-Natriuretic Peptide Total Protein Albumin Influenza Type A (PCR) POSITIVE A Influenza Type B (PCR) NEGATIVE RSV RNA Qual (PCR) NEGATIVE SARS-CoV-2 RNA (RT-PCR) NEGATIVE 06/12/24 14:37 MCV MCH MCHC RDW Plt Count MPV Immature Gran % (Auto) Neut % (Auto) Lymph % (Auto) [place] % (Auto) Eos % (Auto) Baso % (Auto) Lymph # (Auto) [place] # (Auto) Eos # (Auto) Baso # (Auto) Abs Immat Gran (auto) Absolute Neuts (auto) Absolute Nucleated RBC Nucleated RBC % (auto) PT INR Cancelled aPTT Heparin Protocol 32.4 L Anion Gap 10 L Estim Creat Clear Calc 45.5 Estimated GFR 52 Random Glucose 114 Calcium 8.1 L D Total Bilirubin 0.5 AST 46 H ALT 15 Alkaline Phosphatase 75 B-Natriuretic Peptide 1759 H Total Protein 5.7 L Albumin 3.1 L Influenza Type A (PCR) Influenza Type B (PCR) RSV RNA Qual (PCR) SARS-CoV-2 RNA (RT-PCR) Imaging Radiologist's Impressions: Impressions Chest X-Ray 06/12/24 11:43 IMPRESSION: Cardiomegaly. Right upper and middle lobe pneumonia. Trace right pleural effusion. Follow-up is recommended to document resolution. Electronically signed by: Alber Gaxiola MD 06/12/2024 11:52 AM EDT Assessment and Plan (1) Non-ST elevation CO (NSTEMI): Status: Acute Plan 73-year-old woman admitted with NSTEMI, acute on chronic heart failure and influenza a NSTEMI Troponin 1483.9, repeat pending IV heparin drip Aspirin, statin Cardiology consultation Monitor on telemetry Acute on chronic heart failure with preserved ejection fraction Likely secondary to NSTEMI BNP 1759 Echocardiogram IV Lasix Multilobar pneumonia Rocephin, azithromycin Supplemental oxygen to keep oxygen saturation greater than 90% Scheduled albuterol Acute on chronic COPD exacerbation Expiratory wheezing Scheduled albuterol Hold off on steroids for now Influenza A no hypoxia Supplemental oxygen to keep oxygen saturation greater than 90% Supportive care Pancytopenia Appears to be chronic No acute bleeding Follow up CBC Hypertension Stable blood pressure Continue lisinopril Hold hydralazine for now to avoid hypotension Mental health continue home medications GERD Continue PPI DVT prophylaxis with IV heparin Full code Quality Stroke Does the patient have a stroke diagnosis?: No VTE Prior VTE?: No VTE Risk Level:: Medical - moderate - high VTE Device Contraindication: Treatment Not Indicated VTE Drug Contraindication: N/A - Med Ordered
[2024-06-12] MEDS: Doxycycline Monohydrate 100 MG CAPSULE PO (16:41)
[2024-06-12 17:58] LABS: Troponin-I High Sensitivity 1399.4 ng/L (<3.5-17.0)
[2024-06-12] MEDS: Azithromycin 500 MG in 0.9 % Sodium Chloride 250 ML 125 MG IV (18:48)
[2024-06-12] MEDS: Furosemide 40 MG/4 ML VIAL IVPUSH (18:48)
[2024-06-12] MEDS: Albuterol/Iprat 2.5/0.5MG 3 ML AMPUL.NEB INHALE (19:20)
[2024-06-12 22:42] LABS: PTT Heparin Drip 129.9 SEC (53-77.9)
--- NOTE | 2024-06-12 22:53 | PC.NURSE ---
Titrated heparin gtt w/ primary PAWEL Aguilar based on PTT of 129.9, gtt paused, PTT HD to be drawn one hour from start of pause per protocol, at 2346. Spoke to Glynn from pharmacy who wanted to ensure gtt had been paused and gtt would be restarted in 1 hour after next PTT drawn at a decreased rate by 4 units, following policy. Confirmed w/ Glynn gtt had been paused. Oncoming RN Shaneka arrived during phone call, went into patient's room w/ Shaneka for handoff to show gtt had been paused and order for redraw is in, Shaneka in agreement w/ current action and plan going forward, all other handoff report deferred to primary PAWEL Aguilar.
[2024-06-12] MEDS: 0.9 % Sodium Chloride Flush 3 ML SYRINGE IVFLUSH (23:27)
--- NOTE | 2024-06-12 23:41 | PC.NURSE ---
This tag writer assumed care of this Pt at 2300. Pt A&Ox3, denies any pain. Heparin drip paused by previous RN.
[2024-06-13] VITALS (11 sets, daily range): BP systolic 128–175; BP diastolic 36–79; PULSE 76–114; RESP 15–22; TEMP 36.9–40; O2SAT 92–100
[2024-06-13 00:07] LABS: PTT Heparin Drip 105.7 SEC (53-77.9)
[2024-06-13 01:13] LABS: PTT Heparin Drip 68.4 SEC (53-77.9)
[2024-06-13] MEDS: Acetaminophen 325 MG TABLET 650 MG PO ×2 (01:42→17:18)
--- NOTE | 2024-06-13 01:52 | PC.NURSE ---
Upon Heparin drip restart, noted that mg rate did not match. Weight discrepancy noted in chart 72.5 kg. Reweigh 75kg. T/W spoke to pharmacy who reports to continue as weight in MAR of 72.5 kg. Charge nurse made aware.
--- NOTE | 2024-06-13 06:39 | MHC.EDTECH ---
Addendum entered by NAA Lugo 06/13/24 06:40: 700ml urine emptied from suction cannsiter Original Note: Pt noted to be incontinent of feces. Bedding change done and Pt cleaned, repositioned, new purewick placed. Vital signs taken, call medellin within reach.
--- NOTE | 2024-06-13 07:00 | CA_ITS ---
Transthoracic Echocardiogram Patient (Last, First, Middle): Nayeli Fofana E Gender: Female Date of : 1950 Age: 73 Procedure Date: 06/13/2024 Procedure Type: Transthoracic [place] [facility] [place]: 157.48 cm Weight: 73.48 kg BSA: 1.75 m2 Heart Rate: bpm BP: 161 / 58 mmHg Carton Repairer: SB Referring MD: Charlene Benjamin NP Symptoms: nstemi, chf Study Quality: Fair ECG Rhythm: Sinus Conclusions: - The left ventricular systolic function is normal. The calculated ejection fraction is 69% by biplane method. - There is mild to moderate aortic valve stenosis. Findings Left Ventricle Normal left ventricular cavity size. The left ventricular systolic function is normal. The calculated ejection fraction is 69% by biplane method. There is no evidence of regional wall motion abnormalities. Evidence suggests grade II (moderate) diastolic dysfunction. There is mild septal asymmetric hypertrophy. Right Ventricle Normal right ventricular cavity size and systolic function. Atria The left atrium is moderately dilated. The right atrium is normal in size. Aortic Valve There is mild calcification of the aortic valve. There is mild to moderate aortic valve stenosis. The peak aortic velocity is 3.17 m/s with a calculated peak gradient of 40 mmHg. The mean gradient is 22 mmHg. The aortic valve area is 1.30 cm2. There is trace (trivial) aortic valve regurgitation. Dimensionless index 0.45. Stroke volume index 43 mL/m2. Mitral Valve There is mild mitral annular calcification. There is trace mitral valve regurgitation. There is no mitral valve stenosis. Pulmonic Valve The pulmonic valve is likely normal. Tricuspid Valve Normal tricuspid valve structure. There is trace tricuspid valve regurgitation. There is no evidence of pulmonary hypertension. Great Vessels The asc aorta is normal in size. Venous The inferior vena cava is normal in size and collapses greater than 50% with inspiration. Pericardium/Pleural There is no evidence of pericardial effusion. Prior Study Comparison No significant change compared to prior study dated: 07/25/2023. Measurements 2D Linear Measurements IVSd: 1.24 0.6-0.9/0.6-1.0 cm LVIDd: 4.74 3.9-5.3/4.2-5.9 cm LVIDd Index: 2.71 2.4-3.2/2.2-3.1 cm/m2 LVIDs: 2.63 2.0-3.6 cm LVPWd: 0.85 0.7-1.1 cm Ao Root: 2.40 2.1-3.5 cm LA Diam: 4.30 2.7-3.8/3.0-4.0 cm LAIDs Index: 2.46 1.5-2.3 cm/m2 LV Mass: 221.18 67-162/88-224 g LV Mass Index: 126.39 43-95/49-115 g/m2 LVOT Diam: 1.90 3.0+(-)1.3 cm 2D Systolic Function EF 4C: 70.70 >55% EF 2C: 64.70 >55% EF BiP: 69.20 >55% Mitral Valve MV Pk E: 1.31 MV PK A: 0.91 MV Decel Time: 183.00 E/A: 1.40 E'Lateral: 11.50 E'Medial: 9.25 E/E' Med: 14.20 E/E' Lat: 11.40 PHT: 54.00 MVA PHT: 4.07 Decel [place]: 7.14 Aortic Valve AoV Pk Walter: 3.17 AoV Mn Walter: 2.18 AoV VTI: 0.58 AoV Pk Grad: 40.00 Aov Mn Grad: 22.00 ALONZO Cont.VTI: 1.30 LVOT LVOT Pk Walter: 1.43 LVOT Mn Walter: 0.94 LVOT VTI: 0.27 LVOT Pk Grad: 8.00 LVOT Mn Grad: 4.00 LVOT Diam: 1.90 LVOT Area: 2.84 Diastolic Function MV Pk E: 1.31 MV Pk A: 0.91 E/A: 1.40 E'Medial: 9.25 E/E' Med: 14.20 E' Laterial: 11.50 E/E' Lat: 11.40 Tricuspid Valve RA Press: 3.00 Great Vessels Aorta Ao Root-2D: 2.40 2.0-3.7 cm Ao Asc: 2.60 2.1-3.4 cm Pulmonary Valve PV Pk Walter: 1.53 Peak PV Grad: 9.00 Updated in Other Vendor System with Status of Final Gilles Munguia MD electronically signed on 06/13/2024 11:55:28 AM with status of Final
[2024-06-13 07:15] LABS: Hematocrit 27.4 % (37.0-47.0); Hemoglobin 9.4 g/dl (12.0-16.0); Mean Corpuscular HGB Conc 34.3 g/dl (31.0-35.0); Mean Corpuscular Hemoglobin 31.9 pg (27.0-33.0); Mean Corpuscular Volume 92.9 fL (80.0-98.0); Mean Platelet Volume 10.8 fL (9.4-12.3); Red Blood Count 2.95 X10*6/uL (4.20-5.50); Red Cell Distribution Width 13.7 % (11.0-16.0); White Blood Count 3.6 X10*3/uL (4.8-10.8)
[2024-06-13 07:16] LABS: Platelet Count 61 X10*3/uL (160-400)
--- NOTE | 2024-06-13 07:20 | PC.NURSE ---
pt resting but easily arousable, skin pwd, pt is alert and oriented at this time, pt does have a junky intermittent cough, ls clear, pt is currently on 2l and sating well at 99%, pt denies pain, pt is currently running on heparin at 8units kg/h, vs stable. pt set up with her breakfast elza
[2024-06-13 07:23] LABS: PTT Heparin Drip 89.6 SEC (53-77.9)
[2024-06-13 07:44] LABS: B Type Natriuretic Peptide 657 pg/mL (<100)
[2024-06-13 07:48] LABS: Alanine Aminotransferase 19 U/L (0-31); Albumin Level 2.9 g/dL (3.5-5.0); Alkaline Phosphatase 65 U/L (39-117); Anion Gap 11 (12-20); Aspartate Amino Transferase 72 U/L (5-31); Bilirubin Total 0.4 mg/dL (0.0-1.0); Blood Urea Nitrogen 26 mg/dL (9-16); Calcium 7.9 mg/dL (8.4-10.2); Carbon Dioxide 23 mmol/L (22-29); Chloride 112 mmol/L (96-108); Creatinine Clr Calc Pharmacy 40.4; Estimated Glomerular Filt Rate 46; Glucose Random 97 mg/dL (60-115); Potassium 3.9 mmol/L (3.3-5.1); Sodium 142 mmol/L (135-145); Total Protein 5.8 g/dL (6.5-8.0)
[2024-06-13] MEDS: Furosemide 20 MG/2 ML VIAL IVPUSH (08:12)
[2024-06-13] MEDS: Aspirin 81 MG TAB.CHEW PO (08:12)
[2024-06-13] MEDS: Albuterol/Iprat 2.5/0.5MG 3 ML AMPUL.NEB INHALE ×3 (08:28→14:33)
--- NOTE | 2024-06-13 09:32 | MHC.CM.PN ---
CM met with Patient at bedside, in the ED, and addressed IMM with her verbally R/T Contact Precautions for Flu A (original IMM was given to Patient and a copy will be placed on the chart). 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 Home/self care is Patient's goal and CM has initiated and will follow fort [place] planning. Patient's Daughter/HCP/Cindy will transport to home at dc and PCP is Dr. Jeanne Killian.
--- NOTE | 2024-06-13 10:46 | P.CONCA_ITS ---
History of Present Illness History of Present Illness Date of Service: 06/13/24 Chief complaint: NSTEMI, CHF, FLU Narrative: This is a cardiology consultation regarding elevated troponins. Patient denies any previous cardiac history. Denies any coronary disease or myocardial infarction or cardiomyopathy or in fact any other cardiac concerns. She is currently admitted for weakness, respiratory symptoms and in that context, she has been diagnosed to have influenza A. She is denying any active chest pains. She does not have any history of exertional angina. She had troponins checked and they were quite abnormal at over a 1000 and hence we are consulted. Prior to this, she states that she was active without any major limitations. 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 Per scan GI note from 2021, no varices then. Review of Systems 2 Review of Systems: Yes all other systems are reviewed and are negative Constitutional: Constitutional: Reports as per HPI and Reports no additional constitutional complaints Eyes: Eyes: Reports as per HPI and Denies no additional eye complaints ENT: Denies system reviewed and no additional complaints, except as documented and Reports as per HPI Cardiovascular: Cardiovascular: Reports as per HPI, Reports no additional cardiovascular complaints, Denies acrocyanosis, Denies cool extremities, Denies chest pain, Denies leg edema, Denies lightheadedness, Denies palpitations and Denies dyspnea Respiratory: Respiratory: Reports as per HPI, Denies no additional respiratory complaints and Denies dyspnea Gastrointestinal: Gastrointestinal: Reports as per HPI and Denies no additional gastrointestinal complaints Genitourinary: Genitourinary: Reports as per HPI Musculoskeletal: Musculoskeletal: Reports no additional musculoskeletal complaints and Reports as per HPI Integumentary/Breasts: Skin/Breast: Reports system reviewed and no additional complaints, except as docu Neurologic: Reports system reviewed and no additional complaints, except as documented and Reports as per HPI Psychiatric: Psychiatric: Reports no additional psychiatric complaints and Reports as per HPI Endocrine: Endocrine: Reports no additional endocrine complaints, Reports as per HPI and Denies palpitations Hematologic/Lymphatic: Hematologic/Lymphatic: Reports no additional hematologic/lymphatic complaints and Reports as per HPI Allergic/Immunologic: Allergic/Immunologic: Reports no additional allergic/immunologic complaints and Reports as per HPI PMF Past Medical History Medical History (Updated 06/13/24 @ 10:50 by Gilles Munguia MD) Cirrhosis Bladder carcinoma Osteoporosis Annual physical exam Restrictive lung disease Pulmonary nodule Allergic rhinitis Atypical ductal hyperplasia of breast COPD (chronic obstructive pulmonary disease) Thrombocytopenia Aortic valve sclerosis Breast CA Depression Essential hypertension Portal hypertension Family History Family History Father No problems noted. Mother Colon cancer Sister Breast cancer Surgical History Surgical History H/O colonoscopy History of esophagogastroduodenoscopy (EGD) History of surgery History of inguinal hernia repair Hx of cholecystectomy Social History Social History Housing: House Alcohol intake: current Alcohol intake frequency: holidays/special occasions only Patient Tobacco Use Status: Never used Tobacco e-Cigarette/Vaping Use: Never Used Advance Directives: No Advance Directives Information Provided: Yes Do you have a plan to hurt others: No Plan service: No Current occupational status: retired Cognitive needs: No Hearing needs: No Vision needs: Yes Meds Allergies Allergy/AdvReac Type Severity Reaction Status Date / Time cefotetan Allergy Unknown unknown Verified 06/12/24 11:29 cefuroxime [From Ceftin] Allergy Unknown Unknown Verified 06/12/24 11:29 ciprofloxacin [Cipro] Allergy Unknown unknown Verified 06/12/24 11:29 latex Allergy Unknown Unknown Verified 06/12/24 11:29 moxifloxacin [From Avelox] Allergy Unknown Unknown Verified 06/12/24 11:29 prochlorperazine Allergy Unknown Unknown Verified 06/12/24 11:29 [From Compazine] alendronate sodium AdvReac Intermediate Stomach Verified 06/12/24 11:29 Upset amlodipine AdvReac Abdominal Uncoded 05/17/24 09:13 Pain Active Medications: Current Medications Acetaminophen (Acetaminophen 325 Mg Tablet) 650 mg PO Q6H PRN PRN Reason: Pain, Mild 1-3,fever,headache Last Admin: 06/13/24 01:42 Dose: 650 mg Albuterol/Ipratropium (Albuterol/Iprat 2.5/0.5mg 3 Ml Ampul.Neb) 3 ml INHALE RQ4H WHILE AWAKE CHUCK Last Admin: 06/13/24 08:28 Dose: 3 ml Aspirin (Aspirin 81 Mg Tab.Chew) 81 mg PO DAILY CHUCK Last Admin: 06/13/24 08:12 Dose: 81 mg Atorvastatin Calcium (Atorvastatin Calcium 80 Mg Tablet) 80 mg PO BEDTIME CHUCK Calcium Carbonate (Calcium Carbonate 750 Mg Tab.Chew) 750 mg PO Q4H PRN PRN Reason: Heartburn Ceftriaxone Sodium (Ceftriaxone Sodium 1 Gm Vial) 1 gm IVPUSH Q24H [facility] Diphenhydramine HCl (Diphenhydramine Hcl 25 Mg Capsule) 25 mg PO Q6H PRN PRN Reason: Allergic Reaction Furosemide (Furosemide 20 Mg/2 Ml Vial) 20 mg IVPUSH BID@0900,1800 [facility]; Protocol Last Admin: 06/13/24 08:12 Dose: 20 mg Heparin Sodium (Porcine) (Heparin Sodium,Porcine 5,000 Unit/Ml Vial) 2,900 unit 40 unit/kg (2900 unit) IVPUSH PROTOCOL BOLUS PRN; Protocol PRN Reason: 40 unit/kg - Heparin Protocol Heparin Sodium (Porcine) (Heparin Sodium,Porcine 5,000 Unit/Ml Vial) 5,800 unit 80 unit/kg (5800 unit) IVPUSH PROTOCOL BOLUS PRN; Protocol PRN Reason: 80 unit/kg - Heparin Protocol Hydrocortisone (Hydrocortisone 1 % Cream 28.35 Gm Tube) 1 appl TOPICAL BID PRN; Protocol PRN Reason: itchiness Heparin Sodium/Sodium Chloride (Heparin Sodium,Porcine/1/2ns) 25,000 unit in 250 mls @ 0 mls/hr IVCONT .Q0M [facility]; Protocol Last Titration: 06/13/24 07:40 Dose: 6 units/kg/hr, 4.36 mls/hr Azithromycin 500 mg/ Sodium (Chloride) 250 mls @ 125 mls/hr IV Q24H [facility] Last Infusion: 06/12/24 23:28 Dose: Infused Magnesium Hydroxide (Milk Of Magnesia 30 Ml Oral.Susp) 30 ml PO DAILY PRN PRN Reason: Constipation Melatonin (Melatonin 3 Mg Tablet) 6 mg PO BEDTIME PRN PRN Reason: Insomnia Ondansetron HCl (Ondansetron Hcl 4 Mg/2 Ml Vial) 4 mg IVPUSH Q8H PRN PRN Reason: Nausea and Vomiting Sodium Chloride (0.9 % Sodium Chloride Flush 3 Ml Syringe) 3 ml IVFLUSH QSHIFT [facility] Last Admin: 06/13/24 07:40 Dose: Not Given Home Medications ?Medication ?Instructions ?Recorded ?Confirmed ?Last Taken ?Type cholecalciferol (vitamin D3) 25 25 mcg PO DAILY 06/12/24 06/12/24 Unknown History mcg (1,000 unit) tablet (Vitamin D3) dapagliflozin propanediol 10 mg 10 mg PO DAILY 06/12/24 06/12/24 06/11/24 History tablet furosemide 20 mg tablet 40 mg PO DAILY 06/12/24 06/12/24 06/11/24 History hydralazine 25 mg tablet 12.5 mg PO TID 06/12/24 06/12/24 Unknown History multivitamin 1 tab PO DAILY 06/12/24 06/12/24 06/11/24 History omeprazole 40 mg capsule,delayed 40 mg PO DAILY@0630 06/12/24 06/12/24 06/11/24 History release Physical Exam 2 Vital Signs: Vital Signs: Last Vital Signs Temp 98.4 F 06/13/24 07:19 Pulse 85 06/13/24 09:29 Resp 18 06/13/24 09:29 BP 170/36 H 06/13/24 09:29 Pulse Ox 95 06/13/24 09:29 O2 Del Method Room Air 06/13/24 09:29 O2 Flow Rate 2 06/13/24 07:19 BMI result Body Mass Index 28.9 Const: General: comfortable and no acute distress O rientation/consciousness: patient oriented x3 HEENT: Other: Unremarkable Head: Yes normal to inspection Neck: Neck: Yes normal visual inspection Chest: Chest palpation & inspection: normal inspection of the chest Resp: Auscultation: diminished lung sounds Cardio: Palpation: normal PMI Heart sounds: S1 normal heart sound present, S2 normal heart sound present, no gallops, Murmur heart sound present systolic II/ and no rubs GI: Palpation (GI): Soft to palpation Back/Spine/Pelvis: Other: unremarkable Skin: General skin exam: no rashes or lesions noted Neuro: General: patient oriented x3 Extrem: General: Yes normal to inspection Psych: Mental Status: mental status grossly normal Objective Labs and Meds 06/13/24 07:04 06/13/24 07:04 Lab results: Laboratory Results - last 24 hr 06/12/24 06/12/24 06/12/24 12:07 13:02 14:37 WBC 4.3 L RBC 3.08 L D Hgb 9.7 L Hct 28.3 L D MCV 91.9 MCH 31.5 MCHC 34.3 RDW 13.7 Plt Count 67 L D MPV 9.6 Immature Gran % (Auto) 0.5 H Neut % (Auto) 85.1 H Lymph % (Auto) 9.3 L [place] % (Auto) 4.9 Eos % (Auto) 0.0 Baso % (Auto) 0.2 Lymph # (Auto) 0.4 L [place] # (Auto) 0.2 Eos # (Auto) 0.0 Baso # (Auto) 0.0 Abs Immat Gran (auto) 0.02 Absolute Neuts (auto) 3.7 Absolute Nucleated RBC 0.000 Nucleated RBC % (auto) 0.0 PT 14.3 H INR aPTT Heparin Protocol Sodium Potassium Chloride Carbon Dioxide Anion Gap BUN Creatinine Estim Creat Clear Calc Estimated GFR Random Glucose Calcium Total Bilirubin AST ALT Alkaline Phosphatase Troponin I High Sens 1483.9 H* D B-Natriuretic Peptide Total Protein Albumin Influenza Type A (PCR) POSITIVE A Influenza Type B (PCR) NEGATIVE RSV RNA Qual (PCR) NEGATIVE SARS-CoV-2 RNA (RT-PCR) NEGATIVE 06/12/24 06/12/24 06/12/24 14:37 14:37 17:21 WBC RBC Hgb Hct MCV MCH MCHC RDW Plt Count MPV Immature Gran % (Auto) Neut % (Auto) Lymph % (Auto) [place] % (Auto) Eos % (Auto) Baso % (Auto) Lymph # (Auto) [place] # (Auto) Eos # (Auto) Baso # (Auto) Abs Immat Gran (auto) Absolute Neuts (auto) Absolute Nucleated RBC Nucleated RBC % (auto) PT Cancelled INR 1.2 H Cancelled aPTT Heparin Protocol 32.4 L Sodium 141 Potassium 4.0 Chloride 113 H Carbon Dioxide 22 Anion Gap 10 L BUN 29 H Creatinine 1.03 Estim Creat Clear Calc 45.5 Estimated GFR 52 Random Glucose 114 Calcium 8.1 L D Total Bilirubin 0.5 AST 46 H ALT 15 Alkaline Phosphatase 75 Troponin I High Sens 1399.4 H* B-Natriuretic Peptide 1759 H Total Protein 5.7 L Albumin 3.1 L Influenza Type A (PCR) Influenza Type B (PCR) RSV RNA Qual (PCR) SARS-CoV-2 RNA (RT-PCR) 06/12/24 06/12/24 06/13/24 21:33 23:54 00:57 WBC RBC Hgb Hct MCV MCH MCHC RDW Plt Count MPV Immature Gran % (Auto) Neut % (Auto) Lymph % (Auto) [place] % (Auto) Eos % (Auto) Baso % (Auto) Lymph # (Auto) [place] # (Auto) Eos # (Auto) Baso # (Auto) Abs Immat Gran (auto) Absolute Neuts (auto) Absolute Nucleated RBC Nucleated RBC % (auto) PT INR aPTT Heparin Protocol 129.9 H* D 105.7 H 68.4 D Sodium Potassium Chloride Carbon Dioxide Anion Gap BUN Creatinine Estim Creat Clear Calc Estimated GFR Random Glucose Calcium Total Bilirubin AST ALT Alkaline Phosphatase Troponin I High Sens B-Natriuretic Peptide Total Protein Albumin Influenza Type A (PCR) Influenza Type B (PCR) RSV RNA Qual (PCR) SARS-CoV-2 RNA (RT-PCR) 06/13/24 07:04 WBC 3.6 L RBC 2.95 L Hgb 9.4 L Hct 27.4 L MCV 92.9 MCH 31.9 MCHC 34.3 RDW 13.7 Plt Count 61 L MPV 10.8 Immature Gran % (Auto) Neut % (Auto) Lymph % (Auto) [place] % (Auto) Eos % (Auto) Baso % (Auto) Lymph # (Auto) [place] # (Auto) Eos # (Auto) Baso # (Auto) Abs Immat Gran (auto) Absolute Neuts (auto) Absolute Nucleated RBC 0.000 Nucleated RBC % (auto) 0.0 PT INR aPTT Heparin Protocol 89.6 H D Sodium 142 Potassium 3.9 Chloride 112 H Carbon Dioxide 23 Anion Gap 11 L BUN 26 H Creatinine 1.16 Estim Creat Clear Calc 40.4 Estimated GFR 46 Random Glucose 97 Calcium 7.9 L Total Bilirubin 0.4 AST 72 H ALT 19 Alkaline Phosphatase 65 Troponin I High Sens B-Natriuretic Peptide 657 H Total Protein 5.8 L Albumin 2.9 L Influenza Type A (PCR) Influenza Type B (PCR) RSV RNA Qual (PCR) SARS-CoV-2 RNA (RT-PCR) ECG Interpretation: EKG with underlying sinus rhythm at 76/Min; STs with some nonspecific flattening but otherwise no clear ischemia. Normal VT and corrected QT. Imaging Radiologist's impression: Impressions Chest X-Ray 06/12/24 11:43 IMPRESSION: Cardiomegaly. Right upper and middle lobe pneumonia. Trace right pleural effusion. Follow-up is recommended to document resolution. Electronically signed by: Alber Gaxiola MD 06/12/2024 11:52 AM EDT Assessment and Plan (1) Non-ST elevation OR (NSTEMI): Status: Acute (2) Thrombocytopenia: Status: Acute (3) Influenza A: Status: Acute Plan Labs reviewed. She is influenza A positive. High sensitivity troponin levels are 1483 and 1399. Other labs show anemia, thrombocytopenia. Platelet count is 61. Await echocardiogram. Essentially, this is NSTEMI related to influenza A. More likely demand related NSTEMI less likely primary or type one NSTEMI. She is on IV heparin drip. Based on a prior echocardiogram from last year, she has moderate paradoxical low-flow/low gradient aortic stenosis. We will make further decisions based on repeat echocardiogram. May need a diagnostic catheterization beyond that. We will follow up with you. Procedures Date of Service Date of Service: 06/13/24
--- NOTE | 2024-06-13 10:55 | MHC.EDTECH ---
pt presents with continuous events of diarrhea, pericare and clean linens provided, purewick remains in place at this time, functioning properly, call medellin in place and pt is comfortable
--- NOTE | 2024-06-13 12:35 | PC.NURSE ---
Patient resting comfortably. Denies any pain at this time. plumbing instructor maintained and stach noted. Lungs with BBR. Congested cough noted. Patient noted to be dyspneic upon exertion. Abdomen soft, non-tender with positive bowel sounds. Purewick patent and intact. Draining dark yellowish urine. Patient continues to be incontinent of liquid stool. Incontinence care provided. Positive pedal pulses with no edema. Heparin gtt maintained per protocol.
--- NOTE | 2024-06-13 13:25 | PM.DS ---
DS: Providers Provider Date of Service: 06/13/24 Date of admission: 06/12/24 17:03 Date of discharge: 06/13/24 Primary care physician: Jeanne Killian MD Consults: 06/12/24 17:03 Consult to Cardiology Routine Consulting Provider: [facility] Reason for consultation: NSTEMI DS: Diagnosis Discharge Diagnosis (1) Non-ST elevation GA (NSTEMI): Status: Acute (2) Thrombocytopenia: Status: Acute (3) Influenza A: Status: Acute DS: Summary Hospital Course Hospital Course: 73-year-old woman presenting from home with weakness, upper respiratory symptoms after being exposed to flu a from family members. She reports that she lives alone and since Tuesday she has felt weak, tired and has had a cough. She denied chest pain, shortness of breath, nausea, vomiting, diarrhea, fever, chills, recent travel. Apparently patient was hypoxic via EMS at 81% on room air but improved with 2 L nasal cannula. Chest x-ray consistent with multilobar pneumonia with cardiomegaly. Initial troponin 1483.9, BNP 1759, flu A positive, no fever leukocytosis was stable blood pressure. In the ER patient was given a dose of Rocephin, started on IV heparin drip, aspirin, statin, doxycycline. Patient will be admitted for further management of NSTEMI, pneumonia and influenza A 73-year-old woman treated for NSTEMI with initial troponin of 1483.9, started on IV heparin drip, given aspirin and statin. Seen evaluated by Cardiology who recommended transfer to [facility] for cardiac catheterization. She also was noted to be in acute on chronic heart failure with preserved ejection fraction likely secondary to NSTEMI. BNP 1759. Echocardiogram showed EF of 69% with [id number] aortic valve stenosis. She was treated with IV Lasix 20 mg b.i.d. she was also treated for multilobar pneumonia with Rocephin and azithromycin. Continue supplemental oxygen to keep oxygen saturation greater than 90%. Scheduled DuoNebs for acute on chronic COPD exacerbation with expiratory wheezing. Hold off on steroids due to NSTEMI for now. Influenza a treated with supportive care as she has had no hypoxia. Transfer to [facility] for cardiac catheterization. Pancytopenia Appears to be chronic No acute bleeding Follow up CBC Hypertension Stable blood pressure Continue lisinopril Hold hydralazine for now to avoid hypotension Mental health continue home medications GERD Continue PPI Time Attestation Discharge Coordination Time (in mins): 45 Quality: Safe Use of Opioids Does Pt have an Active Cancer Diagnosis on the Problem List?: No Quality: Stroke Does the patient have a stroke diagnosis?: No Physical Exam Vital Signs: Vital Signs: Last Vital Signs Temp 98.4 F 06/13/24 07:19 Pulse 91 06/13/24 11:14 Resp 16 06/13/24 11:14 BP 170/36 H 06/13/24 09:29 Pulse Ox 95 06/13/24 09:29 O2 Del Method Room Air 06/13/24 09:29 O2 Flow Rate 2 06/13/24 07:19 BMI result Body Mass Index 28.9 Appearing in no acute distress head is normocephalic atraumatic eyes pupils are PERRLA sclera is anicteric mouth throat mucous membranes are intact and moist neck is supple no lymphadenopathy, no JVD noted lung sounds are clear to auscultation heart regular rate rhythm, clear S1, S2 positive bowel sounds, abdomen is soft, nontender neuro patient is alert x3, no focal deficits DS: Data Data Completed and Pending Labs on day of discharge: Laboratory Results - last 24 hr 06/12/24 06/12/24 06/12/24 13:02 14:37 14:37 WBC 4.3 L RBC 3.08 L D Hgb 9.7 L Hct 28.3 L D MCV 91.9 MCH 31.5 MCHC 34.3 RDW 13.7 Plt Count 67 L D MPV 9.6 Immature Gran % (Auto) 0.5 H Neut % (Auto) 85.1 H Lymph % (Auto) 9.3 L [place] % (Auto) 4.9 Eos % (Auto) 0.0 Baso % (Auto) 0.2 Lymph # (Auto) 0.4 L [place] # (Auto) 0.2 Eos # (Auto) 0.0 Baso # (Auto) 0.0 Abs Immat Gran (auto) 0.02 Absolute Neuts (auto) 3.7 Absolute Nucleated RBC 0.000 Nucleated RBC % (auto) 0.0 PT 14.3 H Cancelled INR 1.2 H aPTT Heparin Protocol Sodium Potassium Chloride Carbon Dioxide Anion Gap BUN Creatinine Estim Creat Clear Calc Estimated GFR Random Glucose Calcium Total Bilirubin AST ALT Alkaline Phosphatase Troponin I High Sens 1483.9 H* D B-Natriuretic Peptide Total Protein Albumin 06/12/24 06/12/24 06/12/24 14:37 17:21 21:33 WBC RBC Hgb Hct MCV MCH MCHC RDW Plt Count MPV Immature Gran % (Auto) Neut % (Auto) Lymph % (Auto) [place] % (Auto) Eos % (Auto) Baso % (Auto) Lymph # (Auto) [place] # (Auto) Eos # (Auto) Baso # (Auto) Abs Immat Gran (auto) Absolute Neuts (auto) Absolute Nucleated RBC Nucleated RBC % (auto) PT INR Cancelled aPTT Heparin Protocol 32.4 L 129.9 H* D Sodium 141 Potassium 4.0 Chloride 113 H Carbon Dioxide 22 Anion Gap 10 L BUN 29 H Creatinine 1.03 Estim Creat Clear Calc 45.5 Estimated GFR 52 Random Glucose 114 Calcium 8.1 L D Total Bilirubin 0.5 AST 46 H ALT 15 Alkaline Phosphatase 75 Troponin I High Sens 1399.4 H* B-Natriuretic Peptide 1759 H Total Protein 5.7 L Albumin 3.1 L 06/12/24 06/13/24 06/13/24 23:54 00:57 07:04 WBC 3.6 L RBC 2.95 L Hgb 9.4 L Hct 27.4 L MCV 92.9 MCH 31.9 MCHC 34.3 RDW 13.7 Plt Count 61 L MPV 10.8 Immature Gran % (Auto) Neut % (Auto) Lymph % (Auto) [place] % (Auto) Eos % (Auto) Baso % (Auto) Lymph # (Auto) [place] # (Auto) Eos # (Auto) Baso # (Auto) Abs Immat Gran (auto) Absolute Neuts (auto) Absolute Nucleated RBC 0.000 Nucleated RBC % (auto) 0.0 PT INR aPTT Heparin Protocol 105.7 H 68.4 D 89.6 H D Sodium 142 Potassium 3.9 Chloride 112 H Carbon Dioxide 23 Anion Gap 11 L BUN 26 H Creatinine 1.16 Estim Creat Clear Calc 40.4 Estimated GFR 46 Random Glucose 97 Calcium 7.9 L Total Bilirubin 0.4 AST 72 H ALT 19 Alkaline Phosphatase 65 Troponin I High Sens B-Natriuretic Peptide 657 H Total Protein 5.8 L Albumin 2.9 L Discharge Plan Discharge Anticipated Discharge Date/Time: 06/13/24 13:04 Patient Disposition: Xfer Acute Care Hospital Discharge Diagnosis: NSTEMI Acute on chronic heart failure with preserved ejection fraction Multilobar pneumonia Acute on chronic COPD exacerbation Influenza a Referrals: [facility] [Outside] - 1 Week Jeanne Killian MD [Primary Care Provider] - 1 Week Discharge Medications: New azithromycin 500 mg Recon Soln 500 mg IV Q24H ceftriaxone 1 gram Recon Soln 1 g IV Q24H heparin(porcine) in 0.45% NaCl 25,000 unit/250 mL Parenteral Solution 25,000 unit continuous IV infusion .Q0M Qty: 6000 0RF furosemide 10 mg/mL Solution 20 mg IV BID@0900,1800 Qty: 40 0RF Protocol: Hold for SBP< HOLD for SBP < : 90 atorvastatin 80 mg Tablet 80 mg PO BEDTIME Qty: 30 0RF aspirin 81 mg Tablet,Chewable 81 mg PO DAILY Qty: 30 0RF Continued lisinopril 40 mg tablet 40 mg PO DAILY Qty: 90 3RF sertraline 50 mg tablet 50 mg PO DAILY Qty: 90 3RF fluticasone propion-salmeterol [Wixela Inhub] 250-50 mcg/dose blister with device 1 inh inhalation BID 30 Days Qty: 60 4RF multivitamin Tablet 1 tab PO DAILY hydralazine 25 mg tablet 12.5 mg PO TID Rx Instructions: 1/2 orally 3 times a day; 1/2 tab omeprazole 40 mg capsule,delayed release(DR/EC) 40 mg PO DAILY@0630 dapagliflozin propanediol 10 mg tablet 10 mg PO DAILY cholecalciferol (vitamin D3) [Vitamin D3] 25 mcg (1,000 unit) Tablet 25 mcg PO DAILY furosemide 20 mg tablet 40 mg PO DAILY Held propranolol 20 mg tablet 20 mg PO BID Qty: 180 3RF Hold Instructions: Resume on 06/13/24. spironolactone 50 mg tablet 50 mg PO DAILY Qty: 90 1RF Hold Instructions: Resume on 06/13/24. Discharge Orders: Discharge Order (Routine); Ordered 06/13/24 Ordered By: Charlene Benjamin Diet: Advance to usual diet Activity on Discharge: As tolerated Stand Alone Forms: Patient Portal Discharge page Print Language: Guyanese Care Plan Goals: Transfer to [facility] for cardiac catheterization Health Concerns: NSTEMI Acute on chronic heart failure with preserved ejection fraction Multilobar pneumonia Acute on chronic COPD exacerbation Influenza a Plan of Treatment: Continue current treatment with IV heparin drip Rocephin and azithromycin for pneumonia started for 06/12/24 Supportive care for influenza a IV Lasix for heart failure with preserved ejection fraction scheduled DuoNebs for COPD exacerbation Assessment: See discharge summary
--- NOTE | 2024-06-13 13:38 | MHC.CM.PN ---
Patient will be transferred to [facility].
[2024-06-13 14:28] LABS: PTT Heparin Drip 84.2 SEC (53-77.9)
--- NOTE | 2024-06-13 15:07 | MHC.EDTECH ---
pt changed and cleaned up, stated she felt like she had more diarrhea to pass, helped onto bedpan, pericare provided and clean linens in place. This tech obtained a rectal temperature as pt was noticeably warm to touch, temperature 103.5, RN aware
[2024-06-13] MEDS: cefTRIAXone sodium 1 GM VIAL IVPUSH (15:34)
--- NOTE | 2024-06-13 17:34 | MHC.EDTECH ---
Addendum entered by Claudia Witt 06/13/24 17:35: Accepting Dr. Alvarez Original Note: Patient going to [place] [id number], bed 24 at [facility]. [facility] arrival at 1730 for tx. This was an inpatient transfer -- Harry booked by this admin secretary, all other arrangements made by the hospitalist.
[2024-06-13 17:49] LABS: PTT Heparin Drip 68.7 SEC (53-77.9)
== END 2024-06-13 17:31 | disposition short-term general hospital (02) | DRG 280 ==
LOC: HO.ED 15:36 → HO.EDOVER 17:13
PROVIDERS: Student in an Organized Health Care Education/Training Program; Admitting Provider Nurse Practitioner Acute Care; Emergency Provider Emergency Medicine; PCP Internal Medicine; Visit Provider Nurse Practitioner Acute Care
DX: I11.0 Hypertensive heart disease with heart failure (principal); I50.33 Acute on chronic diastolic (congestive) heart failure; I21.A1 Myocardial infarction type 2; J10.00 Influenza due to other identified influenza virus with unspecified type of pneumonia; J44.0 Chronic obstructive pulmonary disease with (acute) lower respiratory infection; J44.1 Chronic obstructive pulmonary disease with (acute) exacerbation; D61.818 Other pancytopenia; I35.0 Nonrheumatic aortic (valve) stenosis; Z79.899 Other long term (current) drug therapy
CPT/HCPCS: 0241U; 36415; 71046; 80053; 83880; 84484; 85025; 85027; 85610; 85730; 87040; 93005; 93306; 94640; 99285; J0456; J0696; J1644; J1940; Q9957

== ENCOUNTER → 2024-06-12 11:32 | Outpatient (BNV) | payer MEDICARE, SELFPAY | PROVIDERS: Admitting Provider Nurse Practitioner Acute Care; Emergency Provider Emergency Medicine; PCP Internal Medicine; Visit Provider Internal Medicine | DX: R53.83 Other fatigue (principal) | CPT/HCPCS: 93010 ==

== ENCOUNTER → 2024-06-12 11:43 | Outpatient (BNV) | payer MEDICARE, SELFPAY | PROVIDERS: Emergency Provider Emergency Medicine; PCP Internal Medicine; Visit Provider Radiology Diagnostic Radiology | DX: J18.1 Lobar pneumonia, unspecified organism (principal); I51.7 Cardiomegaly | CPT/HCPCS: 71046 ==

== ENCOUNTER 2024-06-12 17:03 | Outpatient (BNV) | payer MEDICARE, SELFPAY | END 2024-06-13 07:00 | PROVIDERS: Admitting Provider Nurse Practitioner Acute Care; Emergency Provider Emergency Medicine; PCP Internal Medicine; Visit Provider Internal Medicine | DX: I42.2 Other hypertrophic cardiomyopathy (principal); I35.2 Nonrheumatic aortic (valve) stenosis with insufficiency; I51.7 Cardiomegaly | CPT/HCPCS: 93306 ==

== ENCOUNTER → 2024-06-12 17:03 | Outpatient (BNV) | payer MEDICARE, SELFPAY | PROVIDERS: Admitting Provider Nurse Practitioner Acute Care; Emergency Provider Emergency Medicine; PCP Internal Medicine; Visit Provider Nurse Practitioner Acute Care | DX: I21.4 Non-ST elevation (NSTEMI) myocardial infarction (principal); D69.6 Thrombocytopenia, unspecified; J10.1 Influenza due to other identified influenza virus with other respiratory manifestations | CPT/HCPCS: 99223; 99239 ==

== ENCOUNTER → 2024-06-12 17:03 | Outpatient (BNV) | payer MEDICARE, SELFPAY | PROVIDERS: Admitting Provider Nurse Practitioner Acute Care; Emergency Provider Emergency Medicine; PCP Internal Medicine; Visit Provider Internal Medicine | DX: I21.4 Non-ST elevation (NSTEMI) myocardial infarction (principal); D69.6 Thrombocytopenia, unspecified; J10.1 Influenza due to other identified influenza virus with other respiratory manifestations | CPT/HCPCS: 99223 ==

== ENCOUNTER → 2024-06-15 23:59 | Outpatient (BNV) | payer MEDICARE, SELFPAY | PROVIDERS: PCP Internal Medicine; Visit Provider Internal Medicine Cardiovascular Disease | DX: I21.4 Non-ST elevation (NSTEMI) myocardial infarction (principal) | CPT/HCPCS: 93458; 99152 ==

== ENCOUNTER → 2024-07-06 23:59 | Outpatient (BNV) | payer MEDICARE, SELFPAY | PROVIDERS: PCP Internal Medicine; Visit Provider Internal Medicine | DX: J44.1 Chronic obstructive pulmonary disease with (acute) exacerbation (principal); K74.60 Unspecified cirrhosis of liver; I50.9 Heart failure, unspecified | CPT/HCPCS: G0180 ==

== ENCOUNTER 2024-07-10 13:50 | Outpatient (REF) | payer MEDICARE, SELFPAY ==
[2024-07-10 16:01] LABS: MANUAL DIFF FLAG NO
[2024-07-10 16:15] LABS: Basophils Percent Auto 0.5 % (0-2); Eosinophils Absolute Auto 0.4 X10*3/uL (0.0-0.4); Eosinophils Percent Auto 5.6 % (0-4); Hematocrit 30.4 % (37.0-47.0); Hemoglobin 10.1 g/dl (12.0-16.0); Imm Gran Abs Auto 0.03 X10*3/uL (0.00-0.03); Imm Gran Pct Auto 0.5 % (0.0-0.4); Lymphocytes Absolute Auto 1.2 X10*3/uL (1.2-4.9); Lymphocytes Percent Auto 18.4 % (20-40); Mean Corpuscular HGB Conc 33.2 g/dl (31.0-35.0); Mean Corpuscular Volume 96.2 fL (80.0-98.0); Mean Platelet Volume 10.5 fL (9.4-12.3); Monocytes Absolute Auto 0.6 X10*3/uL (0.1-1.2); Monocytes Percent Auto 8.6 % (2-11); Neutrophils Absolute Auto 4.3 x10*3/uL (2.0-8.3); Neutrophils Percent Auto 66.4 % (45-73); Platelet Count 157 X10*3/uL (160-400); Red Blood Count 3.16 X10*6/uL (4.20-5.50); Red Cell Distribution Width 15.6 % (11.0-16.0); White Blood Count 6.4 X10*3/uL (4.8-10.8)
[2024-07-10 16:17] LABS: Alanine Aminotransferase 24 U/L (0-31); Albumin Level 3.2 g/dL (3.5-5.0); Alkaline Phosphatase 85 U/L (39-117); Anion Gap 11 (12-20); Aspartate Amino Transferase 34 U/L (5-31); Bilirubin Total 0.7 mg/dL (0.0-1.0); Blood Urea Nitrogen 31 mg/dL (9-16); Calcium 8.9 mg/dL (8.4-10.2); Carbon Dioxide 22 mmol/L (22-29); Chloride 108 mmol/L (96-108); Estimated Glomerular Filt Rate 41; Glucose Random 110 mg/dL (60-115); Iron 88 mcg/dL (30-160); Percent Iron Saturation 71 % (15-50); Potassium 4.3 mmol/L (3.3-5.1); Sodium 137 mmol/L (135-145); Total Iron Binding Capacity 124 mcg/dL (228-428); Total Protein 6.3 g/dL (6.5-8.0); Unsaturated Iron Binding 36 ug/dL
[2024-07-10 16:50] LABS: Folate 8.2 ng/mL (> or = 4.0); Vitamin B12 492 pg/mL (200-900)
--- OUTSIDE RECORDS SUMMARY | 2024-07-10 17:15 | XMS_ITS | Encounter Summary ---
Author Organization [facility] Address [address] [place] [address] Care Team Providers Care Textile Machine Operator Name Role Phone Enedelia Rzd MD Primary Care Provider + Encounter Details Date Type Department Care Team (Late st Contact Info) Description 06/30/2024 Lab Requisition [facility] - Main Lab [address] [facility] [place] [address] Enedelia Rdz MD [address] [id number] Chronic kidney disease, unspecified; Gastro-esophageal reflux disease [...] mmol/L LAB CHEMISTRY METHOD 07/02/2024 3:00 PM [facility] Potassium 4.5 3.5 - 5.5 mmol/L LAB CHEMISTRY METHOD 07/02/2024 3:00 PM [facility] Chloride 109 96 - 110 mmol/L LAB CHEMISTRY METHOD 07/02/2024 3:00 PM [facility] CO2 22 21 - 32 mmol/L LAB CHEMISTRY METHOD 07/02/2024 3:00 PM [facility] Anion Gap 9 3 - 11 LAB CHEMISTRY METHOD 07/02/2024 3:00 PM [facility] Glucose 78 70 - 100 mg/dL LAB CHEMISTRY METHOD 07/02/2024 3:00 PM [facility] BUN 22 5 - 25 mg/dL LAB CHEMISTRY METHOD 07/02/2024 3:00 PM [facility] Creatinine 0.96 0.50 - 1.10 mg/dL LAB CHEMISTRY METHOD 07/02/2024 3:00 PM [facility] eGFR 62 >=60 mL/min/1. 73m2 LAB CHEMISTRY METHOD 07/02/2024 3:00 PM [facility] Comment:Calculation based on the??Chronic Kidney Disease Epidemiology Collaboration (CKD-EPI) equation refit??without adjustment for race. BUN/Creatinine Ratio 22.9 LAB CHEMISTRY METHOD 07/02/2024 3:00 PM [facility] Calcium 8.8 8.5 - 10.5 mg/dL LAB CHEMISTRY METHOD 07/02/2024 3:00 PM [facility] Blood Venous blood specimen / Unknown Venipuncture / Unknown 07/02/2024 8:30 AM EDT 07/02/2024 11:09 AM EDT us Enedelia Rdz MD LAB BLOOD ORDERABLES Fin al Result [facility] [address] [place] [address], * (ABNORMAL) Complete blood count (07/02/2024 8:30 AM EDT) WBC 5.5 4.8 - 10.8 K/mcL LAB HEMETOLOGY METHOD 07/02/2024 11:38 AM EDT [facility] RBC 3.20(L) 3.80 - 4.80 M/mcL LAB HEMETOLOGY METHOD 07/02[facility]24 11[facility] Hemoglobin 10.1(L) 11.5 - 16.0 g/dL LAB HEMETOLOGY METHOD 07/02/2024 11:38 AM [facility] Hematocrit 30.6(L) 35.0 - 47.0 % LAB HEMETOLOGY METHOD 07/02/2024 11:38 AM [facility] MCV 96.5 79.0 - 98.0 FL LAB HEMETOLOGY METHOD 07/02/2024 11:38 AM [facility] MCH 31.9 27.0 - 32.0 pcg LAB HEMETOLOGY METHOD 07/02/2024 11:38 AM [facility] MCHC 33.0 32.0 - 37.0 g/dL LAB HEMETOLOGY METHOD 07/02/2024 11:38 AM [facility] RDW 15.5(H) 11.0 - 15.0 % LAB HEMETOLOGY METHOD 07/02/2024 11:38 AM [facility] Platelets 150 130 - 400 K/mcL LAB HEMETOLOGY METHOD 07/02/2024 11:38 AM [facility] MPV 10.8 7.0 - 11.0 FL LAB HEMETOLOGY METHOD 07/02/2024 11:38 AM EDT [facility] NRBC 0.0 <1.0 % LAB HEMETOLOGY METHOD 07/02/2024 11:38 AM EDT [facility] NRBC Absolute 0.00 <0.10 K/mcL LAB HEMETOLOGY METHOD 07/02/2024 11:38 AM EDT [facility] Blood Venous blood specimen / Unknown Venipuncture / Unknown 07/02/2024 8:30 AM EDT 07/02/2024 11:09 AM EDT us Enedelia Rdz MD LAB BLOOD ORDERABLES Fin al Result [facility] [address] [place] [address], documented in this encounter Visit Diagnoses Diagnosis Chronic kidney disease, unspecified Gastro-esophageal reflux disease without esophagitis Essential (primary) hypertension Unspecified essential hypertension Thrombocytopenia, unspecified (CMS/HCC V24) Thrombocytopenia, unspecified documented in this encounter Care Teams Textile Machine Operator Relationship Specialty Start Date End Date Enedelia Rdz MD [address] [place] [address] PCP - General Family Medicine 06/22/24 documented as of this encounter
--- OUTSIDE RECORDS SUMMARY | 2024-07-10 17:16 | XMS_ITS | Clinical Summary ---
Author Organization [address] Address [address] [place] [address] Phone Care Team Providers Care Shaft Repairer Name Role Phone Enedelia Rdz MD Primary Care Provider + Encounters Date Type Department Care Team Description 07/06/2024 Lab Requisition [facility] Lab [address] [place] [phone] Enedelia Rdz MD Chronic kidney disease, unspecified; Gastro-esophageal reflux disease without esophagitis; Essential (primary) hypertension; Thrombocytopenia, unspecified (CMS/HCC V24) 06/30/2024 Lab Requisition [facility] Lab [address] [place] [phone] Enedelia Rdz MD Chronic kidney disease, unspecified; Gastro-esophageal reflux disease without esophagitis; Essential (primary) hypertension; Thrombocytopenia, unspecified (CMS/HCC V24) 06/25/2024 Lab Requisition [facility] Lab [address] [place] [phone] Enedelia Rdz MD Chronic kidney disease, unspecified; Gastro-esophageal reflux disease without esophagitis; Essential (primary) hypertension; Thrombocytopenia, unspecified (CMS/HCC V24) 06/22/2024 Lab Requisition [facility] Lab [address] [place] [phone] Enedelia Rdz MD Chronic kidney disease, unspecified; [...] disease without esophagitis Thrombocytopenia, unspecified (CMS/HCC V24) [facility] DEXA AXIAL SKELETON Routine 01/04/2018 2:07 PM EDT Age-related osteoporosis without current pathological fracture from Last 3 Months or Most Recently Relevant to Health Maintenance Results * (ABNORMAL) Complete blood count (07/02/2024 8:30 AM EDT) Only the most recent of3 resultswithin the time period is included. WBC 5.5 4.8 - 10.8 K/mcL LAB HEMETOLOGY METHOD 07/02/2024 11:38 AM EDT [facility] RBC 3.20(L) 3.80 - 4.80 M/mcL LAB HEMETOLOGY METHOD 07/02/2024 11:38 AM [facility] Hemoglobin 10.1(L) 11.5 - 16.0 g/dL LAB HEMETOLOGY METHOD 07/02/2024 11:38 AM [facility] Hematocrit 30.6(L) 35.0 - 47.0 % LAB HEMETOLOGY METHOD 07/02/2024 11:38 AM T [facility] MCV 96.5 79.0 - 98.0 FL LAB HEMETOLOGY METHOD 07/02/2024 11:38 AM [facility] MCH 31.9 27.0 - 32.0 pcg LAB HEMETOLOGY METHOD 07/02/2024 11:38 AM [facility] MCHC 33.0 32.0 - 37.0 g/dL LAB HEMETOLOGY METHOD 07/02/2024 11:38 AM [facility] RDW 15.5(H) 11.0 - 15.0 % LAB HEMETOLOGY METHOD 07/02/2024 11:38 AM [facility] Platelets 150 130 - 400 K/mcL LAB HEMETOLOGY METHOD 07/02/2024 11:38 AM [facility] MPV 10.8 7.0 - 11.0 FL LAB HEMETOLOGY METHOD 07/02/2024 11:38 AM [facility] NRBC 0.0 <1.0 % LAB HEMETOLOGY METHOD 07/02/2024 11:38 AM [facility] NRBC Absolute 0.00 <0.10 K/mcL LAB HEMETOLOGY METHOD 07/02/2024 11:38 AM [facility] Blood Venous blood specimen / Unknown Venipuncture / Unknown 07/02/2024 8:30 AM EDT 07/02/2024 11:09 AM EDT us Enedelia Rdz MD LAB BLOOD ORDERABLES Fin al Result [facility] [address] [place] [address], * Basic metabolic panel (07/02/2024 8:30 AM EDT) Only the most recent of2 resultswithin the time period is included. Sodium 140 133 - 145 mmol/L LAB CHEMISTRY METHOD 07/02/2024 3:00 PM [facility] Potassium 4.5 3.5 - 5.5 mmol/L LAB CHEMISTRY METHOD 07/02/2024 3:00 PM [facility] Chloride 109 96 - 110 mmol/L LAB CHEMISTRY METHOD 07/02/2024 3:00 PM [facility] CO2 22 21 - 32 mmol/L LAB CHEMISTRY METHOD 07/02/2024 3:00 PM [facility] Anion Gap 9 3 - 11 LAB CHEMISTRY METHOD 07/02/2024 3:00 PM [facility] Glucose 78 70 - 100 mg/dL LAB CHEMISTRY METHOD 07/02/2024 3:00 PM [facility] BUN 22 5 - 25 mg/dL LAB CHEMISTRY METHOD 07/02/2024 3:00 PM [facility] Creatinine 0.96 0.50 - 1.10 mg/dL LAB CHEMISTRY METHOD 07/02/2024 3:00 PM [facility] eGFR 62 >=60 mL/min/1. 73m2 LAB CHEMISTRY METHOD 07/02/2024 3:00 PM [facility] Comment:Calculation based on the??Chronic Kidney Disease Epidemiology Collaboration (CKD-EPI) equation refit??without adjustment for race. BUN/Creatinine Ratio 22.9 LAB CHEMISTRY METHOD 07/02/2024 3:00 PM [facility] Calcium 8.8 8.5 - 10.5 mg/dL LAB CHEMISTRY METHOD 07/02/2024 3:00 PM [facility] Blood Venous blood specimen / Unknown Venipuncture / Unknown 07/02/2024 8:30 AM EDT 07/02/2024 11:09 AM EDT Enedelia Rdz MD LAB BLOOD ORDERABLES Fin al Result Performing Organization Address [facility]/ZIP Co de Phone Number [facility] [address] [place] [address], * (ABNORMAL) Magnesium (06/22/2024 6:36 AM EDT) [facility] Magnesium 1.5(L) 1.9 - 2.6 mg/dL LAB CHEMISTRY METHOD 06/22/2024 9:32 AM EDT [facility] Blood Venous blood specimen / Unknown Venipuncture / Unknown 06/22/2024 6:36 AM EDT 06/22/2024 8:02 AM EDT Enedelia Rdz MD LAB BLOOD ORDERABLES Fin al Result Performing Organization Address [facility] de Phone Number [facility] [address] [place] [address], * Folate (06/22/2024 6:36 AM EDT) [facility] Folate 9.5 2.8 - 17.0 ng/ml LAB CHEMISTRY METHOD 06/22/2024 9:55 AM EDT [facility] Blood Venous blood specimen / Unknown Venipuncture / Unknown 06/22/2024 6:36 AM EDT 06/22/2024 8:02 AM EDT Enedelia Rdz MD LAB BLOOD ORDERABLES Fin al Result Performing Organization Address [facility]/ZIP Co de Phone Number [facility] [address] [place] [address], * (ABNORMAL) Vitamin B12 (06/22/2024 6:36 AM EDT) [facility] Vitamin B-12 1,115(H) 250 - 900 pcg/mL LAB CHEMISTRY METHOD 06/22/2024 9:55 AM [facility] Blood Venous blood specimen / Unknown Venipuncture / Unknown 06/22/2024 6:36 AM EDT 06/22/2024 8:02 AM EDT us Enedelia Rdz MD LAB BLOOD ORDERABLES Fin al Result [facility] [address] [place] [address], * (ABNORMAL) Comprehensive metabolic panel (06/22/2024 6:36 AM EDT) Sodium 138 133 - 145 mmol/L LAB CHEMISTRY METHOD 06/22/2024 9:32 AM [facility] Potassium 3.9 3.5 - 5.5 mmol/L LAB CHEMISTRY METHOD 06/22/2024 9:32 AM [facility] Chloride 105 96 - 110 mmol/L LAB CHEMISTRY METHOD 06/22/2024 9:32 AM [facility] CO2 28 21 - 32 mmol/L LAB CHEMISTRY METHOD 06/22/2024 9:32 AM [facility] Anion Gap 5 3 - 11 LAB CHEMISTRY METHOD 06/22/2024 9:32 AM [facility] Glucose 83 70 - 100 mg/dL LAB CHEMISTRY METHOD 06/22/2024 9:32 AM [facility] BUN 17 5 - 25 mg/dL LAB CHEMISTRY METHOD 06/22/2024 9:32 AM [facility] Creatinine 0.72 0.50 - 1.10 mg/dL LAB CHEMISTRY METHOD 06/22/2024 9:32 AM [facility] eGFR 87 >=60 mL/min/1. 73m2 LAB CHEMISTRY METHOD 06/22/2024 9:32 AM [facility] Comment:Calculation based on the??Chronic Kidney Disease Epidemiology Collaboration (CKD-EPI) equation refit??without adjustment for race. BUN/Creatinine Ratio 23.6 LAB CHEMISTRY METHOD 06/22/2024 9:32 AM [facility] Calcium 8.3(L) 8.5 - 10.5 mg/dL LAB CHEMISTRY METHOD 06/22/2024 9:32 AM [facility] AST (SGOT) 25 10 - 42 unit/L LAB CHEMISTRY METHOD 06/22/2024 9:32 AM [facility] ALT (SGPT) 16 10 - 60 unit/L LAB CHEMISTRY METHOD 06/22/2024 9:32 AM [facility] Alkaline Phosphatase 61 42 - 121 unit/L LAB CHEMISTRY METHOD 06/22/2024 9:32 AM [facility] Total Protein 5.2(L) 6.0 - 8.0 g/dL LAB CHEMISTRY METHOD 06/22/2024 9:32 AM [facility] Albumin 2.2(L) 3.2 - 5.0 g/dL LAB CHEMISTRY METHOD 06/22/2024 9:32 AM [facility] Total Bilirubin 1.7(H) 0.0 - 1.4 mg/dL LAB CHEMISTRY METHOD 06/22/2024 9:32 AM [facility] Blood Venous blood specimen / Unknown Venipuncture / Unknown 06/22/2024 6:36 AM EDT 06/22/2024 8:02 AM EDT us Enedelia Rdz MD LAB BLOOD ORDERABLES Fin al Result [facility] [address] [place] [address], * JOSE LUIS DEXA AXIAL SKELETON (01/04/2018 2:07 PM EDT) Anatomical Region Laterality Modality Mammography 01/04/2018 12:5 7 PM EDT Narrative 01/04/2018 2:07 PM EDT [facility] Diagnostic Imaging Department [address] [place] [address] Patient: ??BONNIE ZAMBRANO ?/Age/Sex: 1950 67 - F Unit#: ??[id number] ? Location/Status: ??SPDIMAM/REG CLI ? Mnemonic/Ordering Site: ??MAMDEXAAX/SPMAM Ordering Physician: ??JEANNE KILLIAN MD [facility] Dexa Axial Skeleton - 01/04/18 - 1321 [...] probability of hip fracture of 7.0%. Code 63397 Dictating Physician: ??PEE KILGORE MD Electronically Signed by: ??PEE KILGORE MD Dic Date/Time: ??01/04/18 1404 Sign date/Time: ??01/04/18 1400 Procedure Note Pee Kilgore MD - 03/02/2022 [facility] Diagnostic Imaging Department [address] [place] [address] Patient: BONNIE ZAMBRANO Hazel ThomasB./Age/Sex: 1950 - 67 - F Unit#: [id number] Location/Status: [facility] Mnemonic[facility] Ordering Physician: JEANNE KILLIAN MD Jose [...] density of the femurs bilaterally is 0.745 gm/pl2msbyd is 74% of that of young normals [...] probability of hip fracture of 7.0%. Code 18170 Dictating Physician: PEE KILGORE MD Electronically Signed by: PEE KILGORE MD Dic Date/Time: 01/04/18 1404 Sign date/Time: 01/04/18 1407 Jeanne Killian MD [facility] BI PROCEDURES Final Result from Last 3 Months or Most Recently Relevant to Health Maintenance Insurance MEDICARE [facility] Care Teams Shaft Repairer Relationship Specialty Start Date End Date Enedelia Rdz MD [address] [place] [address] PCP - General Family Medicine 06/22/24
--- OUTSIDE RECORDS SUMMARY | 2024-07-10 17:16 | XMS_ITS | Encounter Summary ---
Author Organization [facility] Address [address] [place] [address] Care Team Providers Care Pipe Smoking Machine Offbearer Name Role Phone Enedelia Rdz MD Primary Care Provider + Encounter Details Date Type Department Care Team (Late st Contact Info) Description 06/25/2024 Lab Requisition [facility] - Main Lab [address] [facility] [place] [address] Enedelia Rdz MD [address] [phone] Chronic kidney disease, unspecified; Gastro-esophageal reflux disease [...] mmol/L LAB CHEMISTRY METHOD 06/25/2024 3:[address] [facility] Potassium 3.9 3.5 - 5.5 mmol/L LAB CHEMISTRY METHOD 06/25/2024 3:[address] [facility] Chloride 107 96 - 110 mmol/L LAB CHEMISTRY METHOD 06/25/2024 3:[address] [facility] CO2 27 21 - 32 mmol/L LAB CHEMISTRY METHOD 06/25/2024 3:[address] [facility] Anion Gap 6 3 - 11 LAB CHEMISTRY METHOD 06/25/2024 3:[address] [facility] Glucose 60(L) 70 - 100 mg/dL LAB CHEMISTRY METHOD 06/25/2024 3:[address] [facility] BUN 25 5 - 25 mg/dL LAB CHEMISTRY METHOD 06/25/2024 3:[address] [facility] Creatinine 0.74 0.50 - 1.10 mg/dL LAB CHEMISTRY METHOD 06/25/2024 3:[address] [facility] eGFR 84 >=60 mL/min/1. 73m2 LAB CHEMISTRY METHOD 06/25/2024 3:[address] [facility] Comment:Calculation based on the??Chronic Kidney Disease Epidemiology Collaboration (CKD-EPI) equation refit??without adjustment for race. BUN/Creatinine Ratio 33.8 LAB CHEMISTRY METHOD 06/25/2024 3:[address] [facility] Calcium 8.8 8.5 - 10.5 mg/dL LAB CHEMISTRY METHOD 06/25/2024 3:[address] [facility] Blood Venous blood specimen / Unknown Venipuncture / Unknown 06/25/2024 7:57 AM EDT 06/25/2024 11:58 AM EDT us Enedelia Rdz MD LAB BLOOD ORDERABLES Fin al Result [facility] [address] [place] [address], * (ABNORMAL) Complete blood count (06/25/2024 7:57 AM EDT) WBC 11.3(H) 4.8 - 10.8 K/mcL LAB HEMETOLOGY METHOD 06/25/2024 12:[address] [facility] RBC 3.20(L) 3.80 - 4.80 M/mcL LAB HEMETOLOGY METHOD 06/25/2024 12:[address] [facility] Hemoglobin 9.9(L) 11.5 - 16.0 g/dL LAB HEMETOLOGY METHOD 06/25/2024 12:[address] [facility] Hematocrit 30.7(L) 35.0 - 47.0 % LAB HEMETOLOGY METHOD 06/25/2024 12:[address] [facility] MCV 95.0 79.0 - 98.0 FL LAB HEMETOLOGY METHOD 06/25/2024 12:[address] [facility] MCH 30.7 27.0 - 32.0 pcg LAB HEMETOLOGY METHOD 06/25/2024 12:[address] [facility] MCHC 32.2 32.0 - 37.0 g/dL LAB HEMETOLOGY METHOD 06/25/2024 12:[address] [facility] RDW 14.1 11.0 - 15.0 % LAB HEMETOLOGY METHOD 06/25/2024 12:[address] [facility] Platelets 209 130 - 400 K/mcL LAB HEMETOLOGY METHOD 06/25/2024 12:[address] [facility] MPV 10.4 7.0 - 11.0 FL LAB HEMETOLOGY METHOD 06/25/2024 12:[address] [facility] NRBC 0.0 <1.0 % LAB HEMETOLOGY METHOD 06/25/2024 12:[address] [facility] NRBC Absolute 0.00 <0.10 K/mcL LAB HEMETOLOGY METHOD 06/25/2024 12:[address] [facility] Blood Venous blood specimen / Unknown Venipuncture / Unknown 06/25/2024 7:57 AM EDT 06/25/2024 11:58 AM EDT us Enedelia Rdz MD LAB BLOOD ORDERABLES Fin al Result [facility] [address] [place] [address], documented in this encounter Visit Diagnoses Diagnosis Chronic kidney disease, unspecified Gastro-esophageal reflux disease without esophagitis Essential (primary) hypertension Unspecified essential hypertension Thrombocytopenia, unspecified (CMS/HCC V24) Thrombocytopenia, unspecified documented in this encounter Care Teams Pipe Smoking Machine Offbearer Relationship Specialty Start Date End Date Enedelia Rdz MD [address] [place] [address] PCP - General Family Medicine 06/22/24 documented as of this encounter
--- OUTSIDE RECORDS SUMMARY | 2024-07-10 17:16 | XMS_ITS | Encounter Summary ---
Author Organization [facility] Address [address] [place] [address] Care Team Providers Care Disability Manager Name Role Phone Enedelia Rdz MD Primary Care Provider + Encounter Details Date Type Department Care Team (Late st Contact Info) Description 07/06/2024 Lab Requisition [facility] - Main Lab [address] [facility] [place] [address] Enedelia Rdz MD [address] [place] [phone] Chronic kidney disease, unspecified; Gastro-esophageal reflux disease [...] unspecified documented in this encounter Care Teams Disability Manager Relationship Specialty Start Date End Date Enedelia Rdz MD [address] [place] [address] PCP - General Family Medicine 06/22/24 documented as of this encounter
--- OUTSIDE RECORDS SUMMARY | 2024-07-10 17:17 | XMS_ITS | Encounter Summary ---
Author Organization [facility] Address [address] [place] [address] Care Team Providers Care Photogrammetric Engineer Name Role Phone Enedelia Rdz MD Primary Care Provider + Encounter Details Date Type Department Care Team (Late st Contact Info) Description 06/22/2024 Lab Requisition [facility] - Main Lab 299 [facility] [place] [address] Enedelia Rdz MD [address] [address] Chronic kidney disease, unspecified; Essential [...] * (ABNORMAL) Magnesium (06/22/2024 6:36 AM EDT) [facility] Magnesium 1.5(L) 1.9 - 2.6 mg/dL LAB CHEMISTRY METHOD 06/22/2024 9:32 AM EDT [facility] Blood Venous blood specimen / Unknown Venipuncture / Unknown 06/22/2024 6:36 AM EDT 06/22/2024 8:02 AM EDT us Enedelia Rdz MD LAB BLOOD ORDERABLES Fin al Result [facility] [address] [place] [address], * (ABNORMAL) Vitamin B12 (06/22/2024 6:36 AM EDT) [facility] Vitamin B-12 1,115(H) 250 - 900 pcg/mL LAB CHEMISTRY METHOD 06/22/2024 9:55 AM EDT [facility] Blood Venous blood specimen / Unknown Venipuncture / Unknown 06/22/2024 6:36 AM EDT 06/22/2024 8:02 AM EDT Enedelia Rdz MD LAB BLOOD ORDERABLES Fin al Result [facility] [address] [place] [address], [place] [phone] * Folate (06/22/2024 6:36 AM EDT) [facility] Folate 9.5 2.8 - 17.0 ng/ml LAB CHEMISTRY METHOD 06/22/2024 9:55 AM EDT [facility] Blood Venous blood specimen / Unknown Venipuncture / Unknown 06/22/2024 6:36 AM EDT 06/22/2024 8:02 AM EDT Enedelia Rdz MD LAB BLOOD ORDERABLES Fin al Result [facility] [address] [place] [address], [place] [phone] * (ABNORMAL) Comprehensive metabolic panel (06/22/2024 6:36 AM EDT) [facility] Sodium 138 133 - 145 mmol/L LAB CHEMISTRY METHOD 06/22/2024 9:32 AM EDT [facility] Potassium 3.9 3.5 - 5.5 mmol/L LAB CHEMISTRY METHOD 06/22/2024 9:32 AM EDT [facility] Chloride 105 96 - 110 mmol/L LAB CHEMISTRY METHOD 06/22/2024 9:32 AM EDT [facility] CO2 28 21 - 32 mmol/L LAB CHEMISTRY METHOD 06/22/2024 9:32 AM [facility] Anion Gap 5 3 - 11 LAB CHEMISTRY METHOD 06/22/2024 9:32 AM [facility] Glucose 83 70 - 100 mg/dL LAB CHEMISTRY METHOD 06/22/2024 9:32 AM [facility] BUN 17 5 - 25 mg/dL LAB CHEMISTRY METHOD 06/22/2024 9:32 AM [facility] Creatinine 0.72 0.50 - 1.10 mg/dL LAB CHEMISTRY METHOD 06/22/2024 9:32 AM [facility] eGFR 87 >=60 mL/min/1. 73m2 LAB CHEMISTRY METHOD 06/22/2024 9:32 AM [facility] Comment:Calculation based on the??Chronic Kidney Disease Epidemiology Collaboration (CKD-EPI) equation refit??without adjustment for race. BUN/Creatinine Ratio 23.6 LAB CHEMISTRY METHOD 06/22/2024 9:32 AM [facility] Calcium 8.3(L) 8.5 - 10.5 mg/dL LAB CHEMISTRY METHOD 06/22/2024 9:32 AM [facility] AST (SGOT) 25 10 - 42 unit/L LAB CHEMISTRY METHOD 06/22/2024 9:32 AM [facility] ALT (SGPT) 16 10 - 60 unit/L LAB CHEMISTRY METHOD 06/22/2024 9:32 AM [facility] Alkaline Phosphatase 61 42 - 121 unit/L LAB CHEMISTRY METHOD 06/22/2024 9:32 AM [facility] Total Protein 5.2(L) 6.0 - 8.0 g/dL LAB CHEMISTRY METHOD 06/22/2024 9:32 AM [facility] Albumin 2.2(L) 3.2 - 5.0 g/dL LAB CHEMISTRY METHOD 06/22/2024 9:32 AM [facility] Total Bilirubin 1.7(H) 0.0 - 1.4 mg/dL LAB CHEMISTRY METHOD 06/22/2024 9:32 AM [facility] Blood Venous blood specimen / Unknown Venipuncture / Unknown 06/22/2024 6:36 AM EDT 06/22/2024 8:02 AM EDT us Enedelia Rdz MD LAB BLOOD ORDERABLES Fin al Result [facility] [address] [place] [address], * (ABNORMAL) Complete blood count (06/22/2024 6:36 AM EDT) WBC 5.6 4.8 - 10.8 K/mcL LAB HEMETOLOGY METHOD 06/22/2024 9:02 AM [facility] RBC 2.90(L) 3.80 - 4.80 M/mcL LAB HEMETOLOGY METHOD 06/22/2024 9:02 AM [facility] Hemoglobin 9.0(L) 11.5 - 16.0 g/dL LAB HEMETOLOGY METHOD 06/22/2024 9:02 AM [facility] Hematocrit 27.1(L) 35.0 - 47.0 % LAB HEMETOLOGY METHOD 06/22/2024 9:02 AM [facility] MCV 92.2 79.0 - 98.0 FL LAB HEMETOLOGY METHOD 06/22/2024 9:02 AM [facility] MCH 30.6 27.0 - 32.0 pcg LAB HEMETOLOGY METHOD 06/22/2024 9:02 AM [facility] MCHC 33.2 32.0 - 37.0 g/dL LAB HEMETOLOGY METHOD 06/22/2024 9:02 AM EDT [facility] RDW 13.4 11.0 - 15.0 % LAB HEMETOLOGY METHOD 06/22/2024 9:02 AM EDT [facility] Platelets 108(L) 130 - 400 K/mcL LAB HEMETOLOGY METHOD 06/22/2024 9:02 AM EDT [facility] MPV 10.2 7.0 - 11.0 FL LAB HEMETOLOGY METHOD 06/22/2024 9:02 AM EDT [facility] NRBC 0.0 <1.0 % LAB HEMETOLOGY METHOD 06/22/2024 9:02 AM EDT [facility] NRBC Absolute 0.00 <0.10 K/mcL LAB HEMETOLOGY METHOD 06/22/2024 9:02 AM EDT [facility] Blood Venous blood specimen / Unknown Venipuncture / Unknown 06/22/2024 6:36 AM EDT 06/22/2024 8:02 AM EDT us Enedelia Rdz MD LAB BLOOD ORDERABLES Fin al Result [facility] [address] [place] [address], documented in this encounter Visit Diagnoses Diagnosis Chronic kidney disease, unspecified Essential (primary) hypertension Unspecified essential hypertension Chronic obstructive pulmonary disease, unspecified (CMS/HCC V24, CMS/HCC V28) Gastro-esophageal reflux disease without esophagitis Thrombocytopenia, unspecified (CMS/HCC V24) Thrombocytopenia, unspecified documented in this encounter Care Teams Photogrammetric Engineer Relationship Specialty Start Date End Date Enedelia Rdz MD [address] [place] [address] PCP - General Family Medicine 06/22/24 documented as of this encounter
== END 2024-07-10 13:51 | disposition home or self-care (01) ==
LOC: HO.HMGCLDS 13:50
PROVIDERS: PCP Internal Medicine; Visit Provider Internal Medicine
DX: I50.30 Unspecified diastolic (congestive) heart failure (principal); J44.9 Chronic obstructive pulmonary disease, unspecified; I21.4 Non-ST elevation (NSTEMI) myocardial infarction
CPT/HCPCS: 36415; 80053; 82607; 82746; 83540; 85025; 99212

== ENCOUNTER 2024-07-10 13:50 | Outpatient (AMB) | payer MEDICARE, SELFPAY ==
--- NOTE | 2024-07-10 13:53 | A.OFFPC_ITS ---
Vital Signs 07/10/24 13:58 Height 5 ft 3 in Weight 150 lb BMI 26.6 BP 90/60 Blood Pressure Location Lt brachial Position Sitting Respiration 20 Pulse 74 Pulse Source Pulse Oximeter Temp 97.7 F Temp Source Oral Pulse Oximetry (%) 97 Oxygen Delivery Method Room Air Intake Visit Reasons: Discharge follow up Intake Note: Pt is here today for Hospital follow up visit. Allergies cefotetan Allergy (Unknown, Verified 07/10/24 13:53) unknown cefuroxime [From Ceftin] Allergy (Unknown, Verified 07/10/24 13:53) Unknown ciprofloxacin [Cipro] Allergy (Unknown, Verified 07/10/24 13:53) unknown latex Allergy (Unknown, Verified 07/10/24 13:53) Unknown moxifloxacin [From Avelox] Allergy (Unknown, Verified 07/10/24 13:53) Unknown prochlorperazine [From Compazine] Allergy (Unknown, Verified 07/10/24 13:53) Unknown alendronate sodium Adverse Reaction (Intermediate, Verified 07/10/24 13:53) Stomach Upset amlodipine Adverse Reaction (Uncoded 07/10/24 13:53) Abdominal Pain Medication List - Last Reconciled 07/10/24 by Jeanne Killian MD alendronate 70 mg PO QWEEK aspirin 81 mg PO DAILY atorvastatin 40 mg PO BEDTIME azithromycin 500 mg IV Q24H ceftriaxone 1 g IV Q24H cholecalciferol (vitamin D3) (Vitamin D3) 25 mcg PO DAILY fluticasone furoate-vilanterol 200-25 mcg/dose (Breo Ellipta) 1 inh inhalation DAILY fluticasone propion-salmeterol 250-50 mcg/dose (Wixela Inhub) 1 inh inhalation BID 30 days furosemide 20 mg PO DAILY heparin(porcine) in 0.45% NaCl 25,000 unit/250 mL 25,000 units (250 mL) continuous IV infusion .Q0M hydralazine 12.5 mg PO TID lisinopril 20 mg PO DAILY multivitamin 1 tab PO DAILY omeprazole 20 mg PO DAILY@0630 propranolol 20 mg PO BID sertraline 50 mg PO DAILY spironolactone 50 mg PO DAILY Tobacco use date assessed: 07/10/24 Dental Screening Dental Screen Date: 03/21/24 HPI Discharge follow up HPI Details Patient presents for the follow-up of hospitalization at [facility] followed by [facility] for bilateral pneumonia hypoxia heart failure with preserved ejection fraction. For elevated troponin level pt underwent cardiac catheterization which was negative for coronary artery stenosis. Patient has been managed medically. She was discharged to inpatient rehab and home last week. Patient reports feeling weak but denies shortness or breath chest pain palpitations. She has been monitoring her blood pressure with the readings on average at 90/60. She has not been taking hydralazine. [facility] Medical History (Updated 07/10/24 @ 14:45 by Jeanne Killian MD) (HFpEF) heart failure with preserved ejection fraction Cirrhosis Bladder carcinoma Osteoporosis Annual physical exam Restrictive lung disease Pulmonary nodule Allergic rhinitis Atypical ductal hyperplasia of breast COPD (chronic obstructive pulmonary disease) Thrombocytopenia Aortic valve sclerosis Breast CA Depression Essential hypertension Portal hypertension Surgical History H/O colonoscopy History of esophagogastroduodenoscopy (EGD) History of surgery History of inguinal hernia repair Hx of cholecystectomy Family History Father No problems noted. Mother Colon cancer Sister Breast cancer Social History Household Members: None Household Members Other:: lives alone Housing: House Do you presently have visiting nurse or other home services: No Alcohol intake: current Alcohol intake frequency: holidays/special occasions only Patient Tobacco Use Status: Never used Tobacco e-Cigarette/Vaping Use: Never Used Second Hand Smoke Exposure: No service: No Current occupational status: retired Cognitive needs: No Hearing needs: No Vision needs: Yes Questionnaire Thrive Questionnaire Date Thrive assessed: 03/14/24 I am a: Patient What is your living situation today?: I have a steady place to live Within the past 12 months, did the food you bought not last and you didn't have the money to get more?: I choose not to answer this question Within the past 12 months, did you worry whether your food would run out before you got money to buy more?: I choose not to answer this question Do you have trouble paying for medicines?: Yes Do you have trouble getting transportation to medical appointments?: No Do you have trouble paying your heating and electricity bill?: No Do you have trouble taking care of your child, family member or friend?: No Do you have trouble with day-to-day activities such as bathing, preparing meals, shopping, managing finances, etc.?: No Are you currently unemployed and looking for a job?: No Are you interested in more education?: No Please select the resources that you would like help with: Paying for medicine Currently or been in a relationship where the following occur: I choose not to answer THRIVE Score: 0 ELENA-7 AMB Questionnaire ELENA-7 Date ELENA - 7 assessed: 03/21/24 Source: Developed by Drs. Alber Mcelroy, Rula Pantoja, Ranulfo Kirkpatrick and colleagues, with an educational laly from [employer]. Review of Systems Const All systems reviewed & are unremarkable except as noted in HPI and below Eyes Reports no additional complaints ENT Reports no additional complaints Card Reports no additional complaints Resp Reports no additional complaints GI Reports no additional complaints Reports no additional complaints Physical exam (Primary Care) Vital Signs: Last Vital Signs Temp 97.7 F 07/10/24 13:58 Pulse 74 07/10/24 13:58 Resp 20 07/10/24 13:58 BP 90/60 07/10/24 13:58 Pulse Ox 97 07/10/24 13:58 Oxygen Delivery Method Room Air 07/10/24 13:58 BMI result Body Mass Index 26.6 Tobacco/Smoking Status: Tobacco use Status Tobacco use date assessed 07/10/24 07/10/24 14:08 Patient Tobacco Use Status Never used Tobacco 07/10/24 14:08 e-Cigarette/Vaping Use Never Used 07/10/24 14:08 Thrive Assessment: Date of Thrive Assessment Date Thrive assessed 03/14/24 07/10/24 14:08 Currently or been in a relationship where the following occur: I choose not to answer Const General: no acute distress HENMT Head: Yes normal to inspection Face and sinus: Yes normal facial exam Throat: Yes posterior oropharynx normal Neck Neck: Yes supple Resp Effort & Inspection: normal respiratory effort Auscultation: no wheezes and diminished lung sounds Cardio Rhythm: regular rhythm Heart sounds: S1 normal heart sound present and S2 normal heart sound present GI Inspection: Yes normal to inspection Palpation (GI): Soft to palpation Percussion: Yes normal to percussion Auscultation: normal bowel sounds Extrem Other: Nonpitting edema bilaterally Coding Level of Care Code Est Pt Level 4 (00906) Diagnoses (HFpEF) heart failure with preserved ejection fraction I50.30 COPD (chronic obstructive pulmonary disease) J44.9 Assessment & Plan Assessment & Plan (1) (HFpEF) heart failure with preserved ejection fraction: Comment: Echo 07/2023,EF 65%, severe diastolic dysfunction, mod , mild AR, mild MR, moderate mitral of calcifications, normal pulmonary pressure, 06/2024 nl EF, mod Code(s): I50.30 - Unspecified diastolic (congestive) heart failure Category: Medical Plan: Blood pressure is low. patient was advised to decrease lisinopril to 10 mg a day and spironolactone to 25 mg, continue furosemide follow-up in 3 weeks, check CMP and CBC (2) COPD (chronic obstructive pulmonary disease): Comment: Has moderately severe chronic obstructive pulmonary disease Code(s): J44.9 - Chronic obstructive pulmonary disease, unspecified Category: Medical Plan: cont BREO Ellipta Orders: Orders Complete Blood Count Auto Diff Today I21.4 - Non-ST elevation (NSTEMI) myocardial infarction, I50.30 - Unspecified diastolic (congestive) heart failure, J44.9 - Chronic obstructive pulmonary disease, unspecified Comprehensive Met. Panel Today I21.4 - Non-ST elevation (NSTEMI) myocardial infarction, I50.30 - Unspecified diastolic (congestive) heart failure, J44.9 - Chronic obstructive pulmonary disease, unspecified IRON PROFILE Today I21.4 - Non-ST elevation (NSTEMI) myocardial infarction, I50.30 - Unspecified diastolic (congestive) heart failure, J44.9 - Chronic obstructive pulmonary disease, unspecified Vitamin B12 and Folate Today I21.4 - Non-ST elevation (NSTEMI) myocardial infarction, I50.30 - Unspecified diastolic (congestive) heart failure, J44.9 - Chronic obstructive pulmonary disease, unspecified B Type Natriuretic Peptide Today I50.30 - Unspecified diastolic (congestive) heart failure Medications: New lisinopril 1/2 orally daily; 90 tabs 0RF Discontinued fluticasone propion-salmeterol 250-50 mcg/dose (Wixela Inhub) Discontinued Reason: Doctor's Order 1 inh inhalation BID 30 days 60 ea 4RF COPD Resumed spironolactone 25 mg (1/2 x 50 mg) PO DAILY 90 tabs 1RF propranolol 20 mg PO BID 180 tabs 3RF spironolactone 50 mg PO DAILY 90 tabs 1RF
[2024-07-10 13:58] VITALS: BP 90/60; PULSE 74; RESP 20; TEMP 36.5; O2SAT 97; BMI 26.6
--- OUTSIDE RECORDS SUMMARY | 2024-07-10 16:00 | XMS_ITS | Encounter Summary ---
Author Organization [facility] Address [address] [place] [address] Care Team Providers Care Greenhouse Instructor Name Role Phone Enedelia Rdz MD Primary Care Provider + Encounter Details Date Type Department Care Team (Late st Contact Info) Description 07/06/2024 Lab Requisition [facility] - Main Lab [address] [facility] [place] [address] Enedelia Rdz MD [address] [place] [address] [id number] Chronic kidney disease, unspecified; Gastro-esophageal reflux disease without esophagitis; Essential (primary) hypertension; Thrombocytopenia, unspecified (CMS/HCC V24) Social History Tobacco Use Types Packs/Day Years Used Date Smoking Tobacco: Never Smokeless Tobacco: Never Comments Unknown Sex and Gender Information Value Date Recorded Sex Assigned at Not on file Legal Sex Female 2:43 PM EST Gender Identity Not on file Sexual Orientation Not on file documented as of this encounter Plan of Treatment Not on file documented as of this encounter Visit Diagnoses Diagnosis Chronic kidney disease, unspecified Gastro-esophageal reflux disease without esophagitis Essential (primary) hypertension Unspecified essential hypertension Thrombocytopenia, unspecified (CMS/HCC V24) Thrombocytopenia, unspecified documented in this encounter Care Teams Greenhouse Instructor Relationship Specialty Start Date End Date Enedelia Rdz MD [address] [place] [address] PCP - General Family Medicine 06/22/24 documented as of this encounter
--- OUTSIDE RECORDS SUMMARY | 2024-07-10 16:00 | XMS_ITS | Encounter Summary ---
Author Organization [facility] Address [address] [place] [address] Care Team Providers Care Wildlife Control Agent Name Role Phone Enedelia Rdz MD Primary Care Provider + Encounter Details Date Type Department Care Team (Late st Contact Info) Description 06/22/2024 Lab Requisition [facility] - Main Lab 299 [facility] [address] Enedelia Rdz MD [address] [address] Chronic kidney disease, unspecified; Essential (primary) hypertension; Chronic obstructive pulmonary disease, unspecified (CMS/HCC V24, CMS/HCC V28); Gastro-esophageal reflux disease without esophagitis; Thrombocytopenia, unspecified (CMS/HCC V24) Social History Tobacco [...] on file documented as of this encounter Procedures Procedure Name Priority Date/Time Associated Diagnosis Comments COMPLETE BLOOD COUNT Routine 06/22/2024 6:36 AM EDT Chronic kidney disease, unspecified Essential (primary) hypertension Chronic obstructive pulmonary disease, unspecified (CMS/HCC V24, CMS/HCC V28) Gastro-esophageal reflux disease without esophagitis Thrombocytopenia, unspecified (CMS/HCC V24) MAGNESIUM Routine 06/22/2024 6:36 AM EDT Chronic kidney disease, unspecified Essential (primary) hypertension Chronic obstructive pulmonary disease, unspecified (CMS/HCC V24, CMS/HCC V28) Gastro-esophageal reflux disease without esophagitis Thrombocytopenia, unspecified (CMS/HCC V24) FOLATE Routine 06/22/2024 6:36 AM EDT Chronic kidney disease, unspecified Essential (primary) hypertension Chronic obstructive pulmonary disease, unspecified (CMS/HCC V24, CMS/HCC V28) Gastro-esophageal reflux disease without esophagitis Thrombocytopenia, unspecified (CMS/HCC V24) VITAMIN B12 Routine 06/22/2024 6:36 AM EDT Chronic kidney disease, unspecified Essential (primary) hypertension Chronic obstructive pulmonary disease, unspecified (CMS/HCC V24, CMS/HCC V28) Gastro-esophageal reflux disease without esophagitis Thrombocytopenia, unspecified (CMS/HCC V24) COMPREHENSIVE METABOLIC PANEL Routine 06/22/2024 6:36 AM EDT Chronic kidney disease, unspecified Essential (primary) hypertension Chronic obstructive pulmonary disease, unspecified (CMS/HCC V24, CMS/HCC V28) Gastro-esophageal reflux disease without esophagitis Thrombocytopenia, unspecified (CMS/HCC V24) documented in this encounter Results * (ABNORMAL) Magnesium (06/22/2024 6:36 AM EDT) [facility] Magnesium 1.5(L) 1.9 - 2.6 mg/dL LAB CHEMISTRY METHOD 06/22/2024 9:32 AM EDT [facility] Blood Venous blood specimen / Unknown Venipuncture / Unknown 06/22/2024 6:36 AM EDT 06/22/2024 8:02 AM EDT us Enedelia dRz MD LAB BLOOD ORDERABLES Fin al Result [facility] [address] [place] [address], * (ABNORMAL) Vitamin B12 (06/22/2024 6:36 AM EDT) [facility] Vitamin B-12 1,115(H) 250 - 900 pcg/mL LAB CHEMISTRY METHOD 06/22/2024 9:55 AM EDT [facility] Blood Venous blood specimen / Unknown Venipuncture / Unknown 06/22/2024 6:36 AM EDT 06/22/2024 8:02 AM EDT Enedelia Rdz MD LAB BLOOD ORDERABLES Fin al Result [facility] [address] [place] [address], [place] [phone] * Folate (06/22/2024 6:36 AM EDT) [facility] Folate 9.5 2.8 - 17.0 ng/ml LAB CHEMISTRY METHOD 06/22/2024 9:55 AM EDT [facility] Blood Venous blood specimen / Unknown Venipuncture / Unknown 06/22/2024 6:36 AM EDT 06/22/2024 8:02 AM EDT Enedelia Rdz MD LAB BLOOD ORDERABLES Fin al Result [facility] [address] [place] [address], [place] [phone] * (ABNORMAL) Comprehensive metabolic panel (06/22/2024 6:36 AM EDT) [facility] Sodium 138 133 - 145 mmol/L LAB CHEMISTRY METHOD 06/22/2024 9:32 AM EDT [facility] Potassium 3.9 3.5 - 5.5 mmol/L LAB CHEMISTRY METHOD 06/22/2024 9:32 AM EDT [facility] Chloride 105 96 - 110 mmol/L LAB CHEMISTRY METHOD 06/22/2024 9:32 AM EDT [facility] CO2 28 21 - 32 mmol/L LAB CHEMISTRY METHOD 06/22/2024 9:32 AM [facility] Anion Gap 5 3 - 11 LAB CHEMISTRY METHOD 06/22/2024 9:32 AM [facility] Glucose 83 70 - 100 mg/dL LAB CHEMISTRY METHOD 06/22/2024 9:32 AM [facility] BUN 17 5 - 25 mg/dL LAB CHEMISTRY METHOD 06/22/2024 9:32 AM [facility] Creatinine 0.72 0.50 - 1.10 mg/dL LAB CHEMISTRY METHOD 06/22/2024 9:32 AM [facility] eGFR 87 >=60 mL/min/1. 73m2 LAB CHEMISTRY METHOD 06/22/2024 9:32 AM [facility] Comment:Calculation based on the??Chronic Kidney Disease Epidemiology Collaboration (CKD-EPI) equation refit??without adjustment for race. BUN/Creatinine Ratio 23.6 LAB CHEMISTRY METHOD 06/22/2024 9:32 AM [facility] Calcium 8.3(L) 8.5 - 10.5 mg/dL LAB CHEMISTRY METHOD 06/22/2024 9:32 AM [facility] AST (SGOT) 25 10 - 42 unit/L LAB CHEMISTRY METHOD 06/22/2024 9:32 AM [facility] ALT (SGPT) 16 10 - 60 unit/L LAB CHEMISTRY METHOD 06/22/2024 9:32 AM [facility] Alkaline Phosphatase 61 42 - 121 unit/L LAB CHEMISTRY METHOD 06/22/2024 9:32 AM [facility] Total Protein 5.2(L) 6.0 - 8.0 g/dL LAB CHEMISTRY METHOD 06/22/2024 9:32 AM [facility] Albumin 2.2(L) 3.2 - 5.0 g/dL LAB CHEMISTRY METHOD 06/22/2024 9:32 AM [facility] Total Bilirubin 1.7(H) 0.0 - 1.4 mg/dL LAB CHEMISTRY METHOD 06/22/2024 9:32 AM [facility] Blood Venous blood specimen / Unknown Venipuncture / Unknown 06/22/2024 6:36 AM EDT 06/22/2024 8:02 AM EDT us Enedelia Rdz MD LAB BLOOD ORDERABLES Fin al Result [facility] [address] [place] [address], * (ABNORMAL) Complete blood count (06/22/2024 6:36 AM EDT) WBC 5.6 4.8 - 10.8 K/mcL LAB HEMETOLOGY METHOD 06/22/2024 9:02 AM [facility] RBC 2.90(L) 3.80 - 4.80 M/mcL LAB HEMETOLOGY METHOD 06/22/2024 9:02 AM [facility] Hemoglobin 9.0(L) 11.5 - 16.0 g/dL LAB HEMETOLOGY METHOD 06/22/2024 9:02 AM [facility] Hematocrit 27.1(L) 35.0 - 47.0 % LAB HEMETOLOGY METHOD 06/22/2024 9:02 AM [facility] MCV 92.2 79.0 - 98.0 FL LAB HEMETOLOGY METHOD 06/22/2024 9:02 AM [facility] MCH 30.6 27.0 - 32.0 pcg LAB HEMETOLOGY METHOD 06/22/2024 9:02 AM [facility] MCHC 33.2 32.0 - 37.0 g/dL LAB HEMETOLOGY METHOD 06/22/2024 9:02 AM EDT [facility] RDW 13.4 11.0 - 15.0 % LAB HEMETOLOGY METHOD 06/22/2024 9:02 AM EDT [facility] Platelets 108(L) 130 - 400 K/mcL LAB HEMETOLOGY METHOD 06/22/2024 9:02 AM EDT [facility] MPV 10.2 7.0 - 11.0 FL LAB HEMETOLOGY METHOD 06/22/2024 9:02 AM EDT [facility] NRBC 0.0 <1.0 % LAB HEMETOLOGY METHOD 06/22/2024 9:02 AM EDT [facility] NRBC Absolute 0.00 <0.10 K/mcL LAB HEMETOLOGY METHOD 06/22/2024 9:02 AM EDT [facility] Blood Venous blood specimen / Unknown Venipuncture / Unknown 06/22/2024 6:36 AM EDT 06/22/2024 8:02 AM EDT us Enedelia Rdz MD LAB BLOOD ORDERABLES Fin al Result [facility] [address] [place] [address], documented in this encounter Visit Diagnoses Diagnosis Chronic kidney disease, unspecified Essential (primary) hypertension Unspecified essential hypertension Chronic obstructive pulmonary disease, unspecified (CMS/HCC V24, CMS/HCC V28) Gastro-esophageal reflux disease without esophagitis Thrombocytopenia, unspecified (CMS/HCC V24) Thrombocytopenia, unspecified documented in this encounter Care Teams Wildlife Control Agent Relationship Specialty Start Date End Date Enedelia Rdz MD [address] [place] [address] PCP - General Family Medicine 06/22/24 documented as of this encounter
--- OUTSIDE RECORDS SUMMARY | 2024-07-10 16:00 | XMS_ITS | Encounter Summary ---
Author Organization [facility] Address [address] [place] [address] Care Team Providers Care Lockstitch Front Maker Name Role Phone Enedelia Rdz MD Primary Care Provider + Encounter Details Date Type Department Care Team (Late st Contact Info) Description 06/30/2024 Lab Requisition [facility] - Main Lab [address] [facility] [place] [address] Enedelia Rdz MD [address] [phone] Chronic kidney disease, unspecified; Gastro-esophageal reflux disease [...] Associated Diagnosis Comments COMPLETE BLOOD COUNT Routine 07/02/2024 8:30 AM EDT Chronic kidney disease, unspecified Gastro-esophageal reflux disease without esophagitis Essential (primary) hypertension Thrombocytopenia, unspecified (CMS/HCC V24) BASIC METABOLIC PANEL Routine 07/02/2024 8:30 AM EDT Chronic kidney disease, unspecified Gastro-esophageal reflux disease without esophagitis Essential (primary) hypertension Thrombocytopenia, unspecified (CMS/HCC V24) documented in this encounter Results * Basic metabolic panel (07/02/2024 8:30 AM EDT) Sodium 140 133 - 145 mmol/L LAB CHEMISTRY METHOD 07/02/2024 3:00 PM [facility] Potassium 4.5 3.5 - 5.5 mmol/L LAB CHEMISTRY METHOD 07/02/2024 3:00 PM [facility] Chloride 109 96 - 110 mmol/L LAB CHEMISTRY METHOD 07/02/2024 3:00 PM [facility] CO2 22 21 - 32 mmol/L LAB CHEMISTRY METHOD 07/02/2024 3:00 PM [facility] Anion Gap 9 3 - 11 LAB CHEMISTRY METHOD 07/02/2024 3:00 PM [facility] Glucose 78 70 - 100 mg/dL LAB CHEMISTRY METHOD 07/02/2024 3:00 PM [facility] BUN 22 5 - 25 mg/dL LAB CHEMISTRY METHOD 07/02/2024 3:00 PM [facility] Creatinine 0.96 0.50 - 1.10 mg/dL LAB CHEMISTRY METHOD 07/02/2024 3:00 PM [facility] eGFR 62 >=60 mL/min/1. 73m2 LAB CHEMISTRY METHOD 07/02/2024 3:00 PM [facility] Comment:Calculation based on the??Chronic Kidney Disease Epidemiology Collaboration (CKD-EPI) equation refit??without adjustment for race. BUN/Creatinine Ratio 22.9 LAB CHEMISTRY METHOD 07/02/2024 3:00 PM [facility] Calcium 8.8 8.5 - 10.5 mg/dL LAB CHEMISTRY METHOD 07/02/2024 3:00 PM [facility] Blood Venous blood specimen / Unknown Venipuncture / Unknown 07/02/2024 8:30 AM EDT 07/02/2024 11:09 AM EDT us Enedelia Rdz MD LAB BLOOD ORDERABLES Fin al Result [facility] [address] [place] [address], * (ABNORMAL) Complete blood count (07/02/2024 8:30 AM EDT) WBC 5.5 4.8 - 10.8 K/mcL LAB HEMETOLOGY METHOD 07/02/2024 11:38 AM EDT [facility] RBC 3.20(L) 3.80 - 4.80 M/mcL LAB [facility]OLOGY [facility] Hemoglobin 10.1(L) 11.5 - 16.0 g/dL LAB HEMETOLOGY METHOD 07/02/2024 11:38 AM [facility] Hematocrit 30.6(L) 35.0 - 47.0 % LAB HEMETOLOGY METHOD 07/02/2024 11:38 AM [facility] MCV 96.5 79.0 - 98.0 FL LAB HEMETOLOGY METHOD 07/02/2024 11:38 AM [facility] MCH 31.9 27.0 - 32.0 pcg LAB HEMETOLOGY METHOD 07/02/2024 11:38 AM [facility] MCHC 33.0 32.0 - 37.0 g/dL LAB HEMETOLOGY METHOD 07/02/2024 11:38 AM [facility] RDW 15.5(H) 11.0 - 15.0 % LAB HEMETOLOGY METHOD 07/02/2024 11:38 AM [facility] Platelets 150 130 - 400 K/mcL LAB HEMETOLOGY METHOD 07/02/2024 11:38 AM [facility] MPV 10.8 7.0 - 11.0 FL LAB HEMETOLOGY METHOD 07/02/2024 11:38 AM EDT [facility] NRBC 0.0 <1.0 % LAB HEMETOLOGY METHOD 07/02/2024 11:38 AM EDT [facility] NRBC Absolute 0.00 <0.10 K/mcL LAB HEMETOLOGY METHOD 07/02/2024 11:38 AM EDT [facility] Blood Venous blood specimen / Unknown Venipuncture / Unknown 07/02/2024 8:30 AM EDT 07/02/2024 11:09 AM EDT us Enedelia Rdz MD LAB BLOOD ORDERABLES Fin al Result [facility] [address] [place] [address], documented in this encounter Visit Diagnoses Diagnosis Chronic kidney disease, unspecified Gastro-esophageal reflux disease without esophagitis Essential (primary) hypertension Unspecified essential hypertension Thrombocytopenia, unspecified (CMS/HCC V24) Thrombocytopenia, unspecified documented in this encounter Care Teams Lockstitch Front Maker Relationship Specialty Start Date End Date Enedelia Rdz MD [address] [place] [address] PCP - General Family Medicine 06/22/24 documented as of this encounter
--- OUTSIDE RECORDS SUMMARY | 2024-07-10 16:00 | XMS_ITS | Clinical Summary ---
Author Organization [address] Address [address] [place] [phone] Phone Care Team Providers Care Seo Associate Name Role Phone Enedelia Rdz MD Primary Care Provider + Encounters Date Type Department Care Team Description 07/06/2024 Lab Requisition [facility] [address] [place] [phone] Enedelia Rdz MD Chronic kidney disease, unspecified; Gastro-esophageal reflux disease without esophagitis; Essential (primary) hypertension; Thrombocytopenia, unspecified (CMS/HCC V24) 06/30/2024 Lab Requisition [facility] [address] [place] [phone] Enedelia Rdz MD Chronic kidney disease, unspecified; Gastro-esophageal reflux disease without esophagitis; Essential (primary) hypertension; Thrombocytopenia, unspecified (CMS/HCC V24) 06/25/2024 Lab Requisition [facility] [address] [place] [phone] Eneedlia Rdz MD Chronic kidney disease, unspecified; Gastro-esophageal reflux disease without esophagitis; Essential (primary) hypertension; Thrombocytopenia, unspecified (CMS/HCC V24) 06/22/2024 Lab Requisition [facility] [address] [place] [phone] Enedelia Rdz MD Chronic kidney disease, unspecified; Essential (primary) hypertension; Chronic obstructive pulmonary disease, unspecified (CMS/HCC V24, CMS/HCC V28); Gastro-esophageal reflux disease without esophagitis; Thrombocytopenia, unspecified (CMS/HCC V24) from Last 3 Months Social History Tobacco Use Types Packs/Day Years Used Date Smoking Tobacco: Never Smokeless Tobacco: Never Comments Unknown Sex and Gender Information Value Date Recorded Sex Assigned at Not on file Legal Sex Female 2:43 PM EST Gender Identity Not on file Sexual Orientation Not on file Obstetrics History Last Filed Vital Signs Vital Sign Reading Time Taken Comments Blood Pressure 160/78 07/07/2021 9:08 AM EDT Pulse 63 07/07/2021 9:08 AM EDT Temperature - - Respiratory Rate - - Oxygen Saturation - - Inhaled Oxygen Concentration - - Weight 81.1 kg (178 lb 12.8 oz) 07/07/2021 9:08 AM EDT Height - - Body Mass Index - - Plan of Treatment Health Maintenance Due Date Last Done Comments COVID-19 Vaccine (#1) 1955 DTaP,Tdap,and Td Vaccines (1 - Tdap) 08/22/1967 Pneumococcal Vaccine: 50+ Years (1 of 2 - PCV) 08/22/1967 Zoster Vaccines (1 of 2) 08/22/1967 Cholesterol Screening (Lipid Panel) 02/10/2022 Colorectal Cancer Screening: Colonoscopy 02/10/2022 Depression Screening 02/10/2022 Falls Risk Assessment 02/10/2022 Hepatitis C Screening 02/10/2022 Medicare Annual Wellness Visit 02/10/2022 Social Influencers of Health Screening 02/10/2022 RSV Immunization Adult Patients (1 - 1-dose 75+ series) 08/22/2023 Influenza Vaccine (Season Ended) 2024 12/13/2021, 12/09/2020, 11/19/2019, Additional history exists Hypertension/CHF/CAD Annual BMP Blood Test 07/02/2025 07/02/2024, 06/25/2024, 06/22/2024 Osteoporosis Screening (Bone Density Screening) 01/05/2028 01/04/2018 HIB Vaccines Aged Out No longer eligi ble based on patient's age to complete this topic HPV Vaccines Aged Out No longer eligi ble based on patient's age to complete this topic Hepatitis A Vaccines Aged Out No long er eligible based on patient's age to complete this topic Hepatitis B Vaccines Aged Out No long er eligible based on patient's age to complete this topic IPV Vaccines Aged Out No longer eligi ble based on patient's age to complete this topic MMR Vaccines Aged Out No longer eligi ble based on patient's age to complete this topic Meningococcal ACWY Vaccine Aged Out N o longer eligible based on patient's age to complete this topic Meningococcal B Vaccine Aged Out No l onger eligible based on patient's age to complete this topic RSV Immunization Patients Under 20 months Aged Out No longer eligible based on patient's age to complete this topic Varicella Vaccines Aged Out No longer eligible based on patient's age to complete this topic Procedures Procedure Name Priority Date/Time Associated Diagnosis Comments BASIC METABOLIC PANEL Routine 07/02/2024 8:30 AM EDT Chronic kidney disease, unspecified Gastro-esophageal reflux disease without esophagitis Essential (primary) hypertension Thrombocytopenia, unspecified (CMS/HCC V24) COMPLETE BLOOD COUNT Routine 07/02/2024 8:30 AM EDT Chronic kidney disease, unspecified Gastro-esophageal reflux disease without esophagitis Essential (primary) hypertension Thrombocytopenia, unspecified (CMS/HCC V24) BASIC METABOLIC PANEL Routine 06/25/2024 7:57 AM EDT Chronic kidney disease, unspecified Gastro-esophageal reflux disease without esophagitis Essential (primary) hypertension Thrombocytopenia, unspecified (CMS/HCC V24) COMPLETE BLOOD COUNT Routine 06/25/2024 7:57 AM EDT Chronic kidney disease, unspecified Gastro-esophageal reflux disease without esophagitis Essential (primary) hypertension Thrombocytopenia, unspecified (CMS/HCC V24) MAGNESIUM Routine 06/22/2024 [...] disease without esophagitis Thrombocytopenia, unspecified (CMS/HCC V24) COMPLETE BLOOD COUNT Routine 06/22/2024 6:36 AM EDT Chronic kidney disease, unspecified Essential (primary) hypertension Chronic obstructive pulmonary disease, unspecified (CMS/HCC V24, CMS/HCC V28) Gastro-esophageal reflux disease without esophagitis Thrombocytopenia, unspecified (CMS/HCC V24) [facility] DEXA AXIAL SKELETON Routine 01/04/2018 2:07 PM EDT Age-related osteoporosis without current pathological fracture from Last 3 Months or Most Recently Relevant to Health Maintenance Results * (ABNORMAL) Complete blood count (07/02/2024 8:30 AM EDT) Only the most recent of3 resultswithin the time period is included. WBC 5.5 4.8 - 10.8 K/mcL LAB HEMETOLOGY METHOD 07/02/2024 11:[address] [facility] RBC 3.20(L) 3.80 - 4.80 M/mcL LAB HEMETOLOGY METHOD 07/02/2024 11:[address] [facility] Hemoglobin 10.1(L) 11.5 - 16.0 g/dL LAB HEMETOLOGY METHOD 07/02/2024 11:[address] [facility] Hematocrit 30.6(L) 35.0 - 47.0 % LAB HEMETOLOGY METHOD 07/02/2024 11:[address] [facility] MCV 96.5 79.0 - 98.0 FL LAB HEMETOLOGY METHOD 07/02/2024 11:[address] [facility] MCH 31.9 27.0 - 32.0 pcg LAB HEMETOLOGY METHOD 07/02/2024 11:[address] [facility] MCHC 33.0 32.0 - 37.0 g/dL LAB HEMETOLOGY METHOD 07/02/2024 11:[address] [facility] RDW 15.5(H) 11.0 - 15.0 % LAB HEMETOLOGY METHOD 07/02/2024 11:[address] [facility] Platelets 150 130 - 400 K/mcL LAB HEMETOLOGY METHOD 07/02/2024 11:[address] [facility] MPV 10.8 7.0 - 11.0 FL LAB HEMETOLOGY METHOD 07/02/2024 11:[address] [facility] NRBC 0.0 <1.0 % LAB HEMETOLOGY METHOD 07/02/2024 11:[address] [facility] NRBC Absolute 0.00 <0.10 K/mcL LAB HEMETOLOGY METHOD 07/02/2024 11:[address] [facility] Blood Venous blood specimen / Unknown Venipuncture / Unknown 07/02/2024 8:30 AM EDT 07/02/2024 11:09 AM EDT us Enedelia Rdz MD LAB BLOOD ORDERABLES Fin al Result [facility] [address] [place] [address], * Basic metabolic panel (07/02/2024 8:30 AM EDT) Only the most recent of2 resultswithin the time period is included. Sodium 140 133 - 145 mmol/L LAB CHEMISTRY METHOD 07/02/2024 3:[address] [facility] Potassium 4.5 3.5 - 5.5 mmol/L LAB CHEMISTRY METHOD 07/02/2024 3:[address] [facility] Chloride 109 96 - 110 mmol/L LAB CHEMISTRY METHOD 07/02/2024 3:[address] [facility] CO2 22 21 - 32 mmol/L LAB CHEMISTRY METHOD 07/02/2024 3:[address] [facility] Anion Gap 9 3 - 11 LAB CHEMISTRY METHOD 07/02/2024 3:[address] [facility] Glucose 78 70 - 100 mg/dL LAB CHEMISTRY METHOD 07/02/2024 3:[address] [facility] BUN 22 5 - 25 mg/dL LAB CHEMISTRY METHOD 07/02/2024 3:[address] [facility] Creatinine 0.96 0.50 - 1.10 mg/dL LAB CHEMISTRY METHOD 07/02/2024 3:[address] [facility] eGFR 62 >=60 mL/min/1. 73m2 LAB CHEMISTRY METHOD 07/02/2024 3:[address] [facility] Comment:Calculation based on the??Chronic Kidney Disease Epidemiology Collaboration (CKD-EPI) equation refit??without adjustment for race. BUN/Creatinine Ratio 22.9 LAB CHEMISTRY METHOD 07/02/2024 3:[address] [facility] Calcium 8.8 8.5 - 10.5 mg/dL LAB CHEMISTRY METHOD 07/02/2024 3:[address] [facility] Blood Venous blood specimen / Unknown Venipuncture / Unknown 07/02/2024 8:30 AM EDT 07/02/2024 11:09 AM EDT Enedelia Rdz MD LAB BLOOD ORDERABLES Fin al Result Performing Organization Address [facility]/ZIP Co de Phone Number [facility] [address] [place] [address], * (ABNORMAL) Magnesium (06/22/2024 6:36 AM EDT) [facility] Magnesium 1.5(L) 1.9 - 2.6 mg/dL LAB CHEMISTRY METHOD 06/22/2024 9:[address] [facility] Blood Venous blood specimen / Unknown Venipuncture / Unknown 06/22/2024 6:36 AM EDT 06/22/2024 8:02 AM EDT Enedelia Rdz MD LAB BLOOD ORDERABLES Fin al Result Performing Organization Address [facility] de Phone Number [facility] [address] [place] [address], * Folate (06/22/2024 6:36 AM EDT) [facility] Folate 9.5 2.8 - 17.0 ng/ml LAB CHEMISTRY METHOD 06/22/2024 9:[address] [facility] Blood Venous blood specimen / Unknown Venipuncture / Unknown 06/22/2024 6:36 AM EDT 06/22/2024 8:02 AM EDT Enedelia Rdz MD LAB BLOOD ORDERABLES Fin al Result Performing Organization Address [facility]/ZIP Co de Phone Number [facility] [address] [place] [address], * (ABNORMAL) Vitamin B12 (06/22/2024 6:36 AM EDT) [facility] Vitamin B-12 1,115(H) 250 - 900 pcg/mL LAB CHEMISTRY METHOD 06/22/2024 9:[address] [facility] Blood Venous blood specimen / Unknown Venipuncture / Unknown 06/22/2024 6:36 AM EDT 06/22/2024 8:02 AM EDT us Enedelia Rdz MD LAB BLOOD ORDERABLES Fin al Result [facility] [address] [place] [address], * (ABNORMAL) Comprehensive metabolic panel (06/22/2024 6:36 AM EDT) Sodium 138 133 - 145 mmol/L LAB CHEMISTRY METHOD 06/22/2024 9:[address] [facility] Potassium 3.9 3.5 - 5.5 mmol/L LAB CHEMISTRY METHOD 06/22/2024 9:[address] [facility] Chloride 105 96 - 110 mmol/L LAB CHEMISTRY METHOD 06/22/2024 9:[address] [facility] CO2 28 21 - 32 mmol/L LAB CHEMISTRY METHOD 06/22/2024 9:[address] [facility] Anion Gap 5 3 - 11 LAB CHEMISTRY METHOD 06/22/2024 9:[address] [facility] Glucose 83 70 - 100 mg/dL LAB CHEMISTRY METHOD 06/22/2024 9:[address] [facility] BUN 17 5 - 25 mg/dL LAB CHEMISTRY METHOD 06/22/2024 9:[address] [facility] Creatinine 0.72 0.50 - 1.10 mg/dL LAB CHEMISTRY METHOD 06/22/2024 9:[address] [facility] eGFR 87 >=60 mL/min/1. 73m2 LAB CHEMISTRY METHOD 06/22/2024 9:[address] [facility] Comment:Calculation based on the??Chronic Kidney Disease Epidemiology Collaboration (CKD-EPI) equation refit??without adjustment for race. BUN/Creatinine Ratio 23.6 LAB CHEMISTRY METHOD 06/22/2024 9:[address] [facility] Calcium 8.3(L) 8.5 - 10.5 mg/dL LAB CHEMISTRY METHOD 06/22/2024 9:[address] [facility] AST (SGOT) 25 10 - 42 unit/L LAB CHEMISTRY METHOD 06/22/2024 9:[address] [facility] ALT (SGPT) 16 10 - 60 unit/L LAB CHEMISTRY METHOD 06/22/2024 9:[address] [facility] Alkaline Phosphatase 61 42 - 121 unit/L LAB CHEMISTRY METHOD 06/22/2024 9:[address] [facility] Total Protein 5.2(L) 6.0 - 8.0 g/dL LAB CHEMISTRY METHOD 06/22/2024 9:[address] [facility] Albumin 2.2(L) 3.2 - 5.0 g/dL LAB CHEMISTRY METHOD 06/22/2024 9:[address] [facility] Total Bilirubin 1.7(H) 0.0 - 1.4 mg/dL LAB CHEMISTRY METHOD 06/22/2024 9:[address] [facility] Blood Venous blood specimen / Unknown Venipuncture / Unknown 06/22/2024 6:36 AM EDT 06/22/2024 8:02 AM EDT us Enedelia Rdz MD LAB BLOOD ORDERABLES Fin al Result [facility] [address] [place] [address], * JOSE [facility]IS DEXA AXIAL SKELETON (01/04/2018 2:07 PM EDT) Anatomical Region Laterality Modality Mammography 01/04/2018 12:5 7 PM EDT Narrative 01/04/2018 2:07 PM EDT [facility] Diagnostic Imaging Department [address] [place] [id number] Patient: ??BONNIE ZAMBRANO ?/Age/Sex: 1950 67 - F Unit#: ??[id number] ? Location/Status: ??SPDIMAM/REG CLI ? Mnemonic/Ordering Site: ??MAMDEXAAX/SPMAM Ordering Physician: ??JEANNE KILLIAN MD [facility] Dexa Axial Skeleton - 01/04/18 - 1321 HISTORY: ??The patient is a 67-year-old postmenopausal female with clinical concern for metabolic bone disease. FINDINGS: ??Dual energy x-ray absorptiometry of the lumbar spine and femurs is performed. The mean bone mineral density at L1-2 is 0.832 gm/cm2 which is 71% of that of young normals and 82% of that of age matched controls. This yields a T- score of -2.8 and a Z-score of -1.5 which is diagnostic of osteoporosis. The mean bone mineral density of the femurs bilaterally is 0.745 gm/cm2 which is 74% of that of young normals and 86% of that of age matched controls. ??This yields a T-score of -2.1 and a Z-score of -1.0 which is diagnostic of osteopenia. However, the T-score of the right femoral neck is -2.6 and that of the left femoral neck is -3.1 which is diagnostic of osteoporosis. IMPRESSION: 1. Osteoporosis. ??There has been a decrease of 1.7% in bone mineral density in the lumbar spine since the prior examination of 11/08/2014. ??There has been a decrease of 5.5% in bone mineral density in the right femur and a decrease of 5.0% in bone mineral density in the left femur. 2. FRAX analysis yields a 10-year probability of major osteoporotic fracture of 23.3% and a 10-year probability of hip fracture of 7.0%. Code 19865 Dictating Physician: ??PEE KILOGRE MD Electronically Signed by: ??PEE KILGORE MD Dic Date/Time: ??01/04/18 1404 Sign date/Time: ??01/04/18 1405 Procedure Note Pee Kilgore MD - 03/02/2022 [facility] Diagnostic Imaging Department [address] [place] [address] Patient: BONNIE ZAMBRANO Hazel ThomasB./Age/Sex: 1950 - 67 - F Unit#: [id number] Location/Status: [facility]em[facility] Ordering Physician: JEANNE KILLIAN MD [facility] Dexa Axial Skeleton - 01/04/18 - 1321 HISTORY: The patient is a 67-year-old postmenopausal female withclinical concern for metabolic bone disease. FINDINGS: Dual energy x-ray absorptiometry of the lumbar spine and femursis performed. The mean bone mineral density at L1-2 is 0.832 gm/cm2 which is71% of that of young normals and 82% of that of age matched controls. This yieldsa T- score of -2.8 and a Z-score of -1.5 which is diagnostic of osteoporosis. The mean bone mineral density of the femurs bilaterally is 0.745 gm/gw9jcfmv is 74% of that of young normals and 86% of that of age matched controls.This yields a T-score of -2.1 and a Z-score of -1.0 which is diagnostic of osteopenia. However, the T-score of the right femoral neck is -2.6 andthat of the left femoral neck is -3.1 which is diagnostic of osteoporosis. IMPRESSION: 1. Osteoporosis. There has been a decrease of 1.7% in bone mineraldensity in the lumbar spine since the prior examination of 11/08/2014. There has thania decrease of 5.5% in bone mineral density in the right femur and a decreaseof 5.0% in bone mineral density in the left femur. 2. FRAX analysis yields a 10-year probability of major osteoporoticfracture of 23.3% and a 10-year probability of hip fracture of 7.0%. Code 97999 Dictating Physician: PEE KILGORE MD Electronically Signed by: PEE KILGORE MD Dic Date/Time: 01/04/18 1404 Sign date/Time: 01/04/18 1407 Jeanne Killian MD [facility] BI PROCEDURES Final Result from Last 3 Months or Most Recently Relevant to Health Maintenance Insurance MEDICARE [facility] Care Teams Seo Associate Relationship Specialty Start Date End Date Enedelia Rdz MD [address] [place] [address] PCP - General Family Medicine 06/22/24
--- OUTSIDE RECORDS SUMMARY | 2024-07-10 16:01 | XMS_ITS | Patient Health Record ---
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 Name Role Phone Jeanne Killian MD Primary Care Provider Unavaila ble Black, Tessa Unavailable [phone] Allergies Allergen (clinical drug ingredient) Drug/Non Drug [...] Problem Acquired hammer toe of right foot (9575965624411760) Other hammer toe(s) (acquired), right foot (M20.41) Active confirmed Problem Acquired hammer toe of left foot ([id number]) Other hammer toe(s) (acquired), left foot (M20.42) Active confirmed Problem [id number] Hallux valgus (acquired), left foot (M20.12) Active confirmed Problem [id number] Hallux valgus (acquired), right foot (M20.11) Active confirmed Problem Localized, primary osteoarthritis of the ankle and/or foot (061166397) Osteoarthritis of right ankle and foot (M19.071) Active confirmed Problem Localized, primary osteoarthritis of the ankle and/or foot (290650785) Osteoarthritis of left ankle and foot (M19.072) Active confirmed Plan Of Treatment No Information Insurance Providers Payer Name Payer Address Payer Phone Subscriber Number Group Number Insured Name Patient Relationship to Insured Coverage Start Date Coverage End Date Medicare National Govt [email or web address] [facility] [address] [place] [address] [id number] Nayeli Fofana Self - patient is the insured [employer] [facility] [address] [place] [address] [id number] Nayeli Fofana Self - patient is the insured Medical (General) History Medical History History ICD Code Arthritis asthma Gall bladder problems High blood pressure Kidney disease Liver disease Osteoporosis Measles Mumps Chicken pox Transfusions Congenitive Hepatic Fibrosis Surgical History Surgery Date(Month/Year) Breast Surgery x2 1978,2020 kidney surgery 2016 gall bladder 2013 hernia
--- OUTSIDE RECORDS SUMMARY | 2024-07-10 16:01 | XMS_ITS | Encounter Summary ---
Author Organization [facility] Address [address] [place] [address] Care Team Providers Care Rug Backing Stenciler Name Role Phone Enedelia Rdz MD Primary Care Provider + Encounter Details Date Type Department Care Team (Late st Contact Info) Description 06/25/2024 Lab Requisition [facility] Lab [address] [facility] [place] [address] Enedelia Rdz MD [address] [phone] Chronic kidney disease, unspecified; Gastro-esophageal reflux disease [...] Associated Diagnosis Comments COMPLETE BLOOD COUNT Routine 06/25/2024 7:57 AM EDT Chronic kidney disease, unspecified Gastro-esophageal reflux disease without esophagitis Essential (primary) hypertension Thrombocytopenia, unspecified (CMS/HCC V24) BASIC METABOLIC PANEL Routine 06/25/2024 7:57 AM EDT Chronic kidney disease, unspecified Gastro-esophageal reflux disease without esophagitis Essential (primary) hypertension Thrombocytopenia, unspecified (CMS/HCC V24) documented in this encounter Results * (ABNORMAL) Basic metabolic panel (06/25/2024 7:57 AM EDT) Sodium 140 133 - 145 mmol/L LAB CHEMISTRY METHOD 06/25/2024 3:01 PM [facility] Potassium 3.9 3.5 - 5.5 mmol/L LAB CHEMISTRY METHOD 06/25/2024 3:01 PM [facility] Chloride 107 96 - 110 mmol/L LAB CHEMISTRY METHOD 06/25/2024 3:01 PM [facility] CO2 27 21 - 32 mmol/L LAB CHEMISTRY METHOD 06/25/2024 3:01 PM [facility] Anion Gap 6 3 - 11 LAB CHEMISTRY METHOD 06/25/2024 3:01 PM [facility] Glucose 60(L) 70 - 100 mg/dL LAB CHEMISTRY METHOD 06/25/2024 3:01 PM [facility] BUN 25 5 - 25 mg/dL LAB CHEMISTRY METHOD 06/25/2024 3:01 PM [facility] Creatinine 0.74 0.50 - 1.10 mg/dL LAB CHEMISTRY METHOD 06/25/2024 3:01 PM [facility] eGFR 84 >=60 mL/min/1. 73m2 LAB CHEMISTRY METHOD 06/25/2024 3:01 PM [facility] Comment:Calculation based on the??Chronic Kidney Disease Epidemiology Collaboration (CKD-EPI) equation refit??without adjustment for race. BUN/Creatinine Ratio 33.8 LAB CHEMISTRY METHOD 06/25/2024 3:01 PM [facility] Calcium 8.8 8.5 - 10.5 mg/dL LAB CHEMISTRY METHOD 06/25/2024 3:01 PM [facility] Blood Venous blood specimen / Unknown Venipuncture / Unknown 06/25/2024 7:57 AM EDT 06/25/2024 11:58 AM EDT us Enedelia Rdz MD LAB BLOOD ORDERABLES Fin al Result [facility] [address] [place] [address], * (ABNORMAL) Complete blood count (06/25/2024 7:57 AM EDT) WBC 11.3(H) 4.8 - 10.8 K/mcL LAB HEMETOLOGY METHOD 06/25/2024 12:56 PM EDT [facility] RBC 3.20(L) 3.80 - 4.80 M/mcL LAB HEMETOLOGY METHOD 06/25/2024 12:56 PM EDT [facility] Hemoglobin 9.9(L) 11.5 - 16.0 g/dL LAB HEMETOLOGY METHOD 06/25/2024 12:56 PM EDT [facility] Hematocrit 30.7(L) 35.0 - 47.0 % LAB HEMETOLOGY METHOD 06/25/2024 12:56 PM EDT [facility] MCV 95.0 79.0 - 98.0 FL LAB HEMETOLOGY METHOD 06/25/2024 12:56 PM EDT [facility] MCH 30.7 27.0 - 32.0 pcg LAB HEMETOLOGY METHOD 06/25/2024 12:56 PM EDT [facility] MCHC 32.2 32.0 - 37.0 g/dL LAB HEMETOLOGY METHOD 06/25/2024 12:56 PM EDT [facility] RDW 14.1 11.0 - 15.0 % LAB HEMETOLOGY METHOD 06/25/2024 12:56 PM EDT [facility] Platelets 209 130 - 400 K/mcL LAB HEMETOLOGY METHOD 06/25/2024 12:56 PM EDT [facility] MPV 10.4 7.0 - 11.0 FL LAB HEMETOLOGY METHOD 06/25/2024 12:56 PM EDT [facility] NRBC 0.0 <1.0 % LAB HEMETOLOGY METHOD 06/25/2024 12:56 PM EDT [facility] NRBC Absolute 0.00 <0.10 K/mcL LAB HEMETOLOGY METHOD 06/25/2024 12:56 PM EDT [facility] Blood Venous blood specimen / Unknown Venipuncture / Unknown 06/25/2024 7:57 AM EDT 06/25/2024 11:58 AM EDT us Enedelia Rdz MD LAB BLOOD ORDERABLES Fin al Result [facility] [address] [place] [address], documented in this encounter Visit Diagnoses Diagnosis Chronic kidney disease, unspecified Gastro-esophageal reflux disease without esophagitis Essential (primary) hypertension Unspecified essential hypertension Thrombocytopenia, unspecified (CMS/HCC V24) Thrombocytopenia, unspecified documented in this encounter Care Teams Rug Backing Stenciler Relationship Specialty Start Date End Date Enedelia Rdz MD [address] [place] [address] PCP - General Family Medicine 06/22/24 documented as of this encounter
--- OUTSIDE RECORDS SUMMARY | 2024-07-10 16:01 | XMS_ITS | Data Portability ---
Author Organization GINI Mckenna s [address] Address [address] [place] [address] Care Team Providers Care Plater Apprentice Name Role Phone SARANATElizabethLUCILLE Primary Care Provider Assessment No assessment recorded. Plan of Treatment Reminders Order Date Submit Date Provider Last Modified By Organization Details Last Modified Time Details Appointments None recorded. Lab None recorded. Referral None recorded. Procedures None recorded. Surgeries None recorded. Imaging None recorded. Medication Orders doxycycline hyclate 100 mg tablet 2022 023 [facility] [employer] #[id number], [address] [place], [place], [id number], 3 11:56:50 benzonatate 200 mg capsule 2022 023 [facility] [employer] [id number], [address] [place], [place], [id number], 3 11:56:50 Patient TargetsNo targets recorded. Patient Instructions Encounter Date Encounter Id Patient Instructions Last Modified By Organization Details Last Modified Time 09/11/2022 [id number] cough: care instructions [email or web address] Not available 09/11/2022 11:56:39 You are being [...] or lung pathology. Thank you for using [facility] today - please don't hesitate to contact up or return to see if you have any questions or concerns. Not available 09/11/2022 11:55:42 Reason for Referral None Reported. 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 Medical Equipment None Reported. Allergies Allergen ID Allergen Name Allergen Category Reaction Reaction Severity Criticality Documentation Date Start Date Code Code System Note Provider Name and Address Organization Details Recorded Time 605837 Compazine medicatio n Not available Not available Not available 09/11/2022 19331 6 RxNorm Allie Galeana null, PA - [facility] 3 11:19:10 157769 Fosamax medicatio n Not available Not available Not available 09/11/2022 26165 5 RxNorm Allie Galeana null, PA - [facility] 3 11:19:22 879007 Cipro medicatio n Not available Not available Not available 09/11/2022 01034 3 RxNorm Allie Galeana null, PA - [facility] 3 11:19:29 188867 Ceftin medicatio n Not available Not available Not available 09/11/2022 47336 6 RxNorm Allie Galeana null, PA - [...] Updated DateTime 3 160.02 cm 29.8 kg/m2 01061.5 2 g 5 20 /min 96 % [...] SNOMED-CT Code Diagnosis ICD10 Code Diagnosis Note [id number] [address] [address] 01/12/2015 09:01:28 01/12/2015 09:34:14 [id number] GINI ISBELL [address] [place] [address] 09/11/2022 11:07:38 09/11/2022 11:57:33 Acute sinusitis 28666539 J01.90 Cough 68667582 R05.9 History of Chronic Bronchitis . Hypertensive disorder 38 502977 I10 Your blood pressure was elevated today [...] Member ID Guarantor Name 01/12/2015 2 [place] [facility] [place] [id number] Benny Fofana [id number] Nayeli Fofana 09/11/2022 2 [place] Nayeli Fofana [id number] Nayeli Fofana 09/11/2022 1 [place] [employer] Nayeli Fofana [id number] Nayeli Fofana Notes Date Note Type [...] medication today. GINI ISBELL [address], [place], [address], PA - [facility] 09/11/2022 13:31:17 OBGyn Episode No OBEpisode recorded.
== END 2024-07-10 14:40 | disposition home or self-care (01) ==
LOC: HO.HMCC 13:51
PROVIDERS: PCP Internal Medicine; Visit Provider Internal Medicine
DX: I50.30 Unspecified diastolic (congestive) heart failure (principal); J44.9 Chronic obstructive pulmonary disease, unspecified

== ENCOUNTER 2024-07-24 09:38 | Outpatient (AMB) | payer MEDICARE, SELFPAY ==
--- NOTE | 2024-07-24 10:02 | A.OFFVIS_ITS ---
Vital Signs 07/24/24 10:03 Height 5 ft 3 in Weight 153 lb 3.54 oz BMI 27.1 BP 112/58 L Blood Pressure Location Lt brachial Position Sitting Pulse 65 Pulse Source Pulse Oximeter Pulse Oximetry (%) 98 Oxygen Delivery Method Room Air Intake Visit Reasons: Bronchitis Intake Note: pt is here for follow up and states was in rehab for pneumonia/heart attack. Her breathing is good. Cloth Shearing Supervisor Required: No Allergies cefotetan Allergy (Unknown, Verified 07/24/24 10:40) unknown cefuroxime [From Ceftin] Allergy (Unknown, Verified 07/24/24 10:40) Unknown ciprofloxacin [Cipro] Allergy (Unknown, Verified 07/24/24 10:40) unknown latex Allergy (Unknown, Verified 07/24/24 10:40) Unknown moxifloxacin [From Avelox] Allergy (Unknown, Verified 07/24/24 10:40) Unknown prochlorperazine [From Compazine] Allergy (Unknown, Verified 07/24/24 10:40) Unknown alendronate sodium Adverse Reaction (Intermediate, Verified 07/24/24 10:40) Stomach Upset amlodipine Adverse Reaction (Uncoded 07/24/24 10:40) Abdominal Pain Medication List - Last Reconciled 07/24/24 by Dinorah Stewart MD alendronate 70 mg PO QWEEK aspirin 81 mg PO DAILY cholecalciferol (vitamin D3) (Vitamin D3) 25 mcg PO DAILY fluticasone furoate-vilanterol 200-25 mcg/dose (Breo Ellipta) 1 inh inhalation DAILY furosemide 20 mg PO DAILY lisinopril 1/2 orally daily; multivitamin 1 tab PO DAILY omeprazole 40 mg PO DAILY@0630 propranolol 20 mg PO BID sertraline 50 mg PO DAILY spironolactone 25 mg (1/2 x 50 mg) PO DAILY Do you need a note to return to daycare/school/sports/work: No HPI HPI Bronchitis: Details: DONTE IS VERY PLEASANT 73 YEARS OLD FEMALE WHO IS HERE FOR FOLLOW-UP AFTER HER ADMISSION TO THE HOSPITAL AND REHAB FACILITY. SHE WAS SEEN IN THE EMERGENCY ROOM OF [facility] ON 06/12/24 AND THEN TRANSFERRED TO [facility] FOR TREATMENT OF PNEUMONIA. SHE WAS TREATED IN THE HOSPITAL FOR ABOUT 10 DAYS AND THEN TRANSFERRED TO A LOCAL REHAB FACILITY WHICH SHE SPENT ALMOST 1 MONTH. ,RECENTLY DISCHARGED HOME . BREATHING RANGEL SHE IS VERY STABLE AND DOING WELL. . ONLY HAS MILD INTERMITTENT COUGH SHE HAS USUAL SHORTNESS OF BREATH ON WALKING UP HILL OR WALKING FAST. SHE CONTINUES TO USE BREO 200-251 INHALATION DAILY AND HARDLY NEEDS TO USE THE RESCUE INHALER . SHE IS RECOVERING FROM MILD GENERAL WEAKNESS. [facility] Medical History (HFpEF) heart failure with preserved ejection fraction Cirrhosis Bladder carcinoma Osteoporosis Annual physical exam Restrictive lung disease Pulmonary nodule Allergic rhinitis Atypical ductal hyperplasia of breast COPD (chronic obstructive pulmonary disease) Thrombocytopenia Aortic valve sclerosis Breast CA Depression Essential hypertension Portal hypertension Surgical History H/O colonoscopy History of esophagogastroduodenoscopy (EGD) History of surgery History of inguinal hernia repair Hx of cholecystectomy Family History Father No problems noted. Mother Colon cancer Sister Breast cancer Social History Household Members: None Household Members Other:: lives alone Housing: House Do you presently have visiting nurse or other home services: No Alcohol intake: current Alcohol intake frequency: holidays/special occasions only Patient Tobacco Use Status: Never used Tobacco e-Cigarette/Vaping Use: Never Used Second Hand Smoke Exposure: No service: No Current occupational status: retired Cognitive needs: No Hearing needs: No Vision needs: Yes Review of Systems Const All systems reviewed & are unremarkable except as noted in HPI and below Eyes Reports no additional complaints ENT Reports nasal congestion (Mild intermittent) Card Denies chest pain, Denies irregular heart rhythm and Denies leg edema Resp Reports as per HPI GI Reports heartburn (Controlled with omeprazole) Reports no additional complaints Musc Reports no additional complaints Skin/Breast Reports system reviewed and no additional complaints, except as documented Neuro Reports no additional complaints Psych Reports depression (Mild well controlled) Endo Reports no additional complaints Physical Exam Vital Signs: Last Vital Signs Pulse 65 07/24/24 10:03 BP 112/58 L 07/24/24 10:03 Pulse Ox 98 07/24/24 10:03 Oxygen Delivery Method Room Air 07/24/24 10:03 BMI result Body Mass Index 27.1 Const General: comfortable, no acute distress, alert and awake Orientation/consciousness: patient oriented x3 HEENT Head: Yes normal to inspection General nose exam: No nasal polyps present, No nasal discharge present and Other nasal findings present (HAS MILD NASAL CONGESTION, ALSO HAS A FEW SUPERFICIAL ULCERATED AREAS ) Face and sinus: Yes sinuses nontender Mouth: oropharynx normal Throat: Yes posterior oropharynx normal Eyes General: appearance normal, both eyes and all related structures Neck Neck: Yes normal visual inspection, Yes no lymphadenopathy, Yes trachea midline and Yes no JVD Thyroid: Thyroid normal Chest Chest palpation & inspection: normal inspection of the chest, normal palpation of entire chest wall and no tenderness Resp Other: Percussion note is resonant, she has good breath sounds on both sides, slightly prolonged expiratory phase. No audible wheezes rhonchi or crepitations. Cardio Palpation: normal PMI Rate: regular rate Rhythm: regular rhythm Heart sounds: no gallops and no murmurs Peripheral pulses: Peripheral pulses 2+ throughout GI Palpation (GI): Soft to palpation, nontender, No hepatosplenomegaly present and no masses Auscultation: normal bowel sounds Back/Spine/Pelvis Thoracic/Lumbar Spine: thoracic and lumbar spine normal to inspection Skin General skin exam: no rashes or lesions noted Neuro General: patient oriented x3 and no focal motor deficits Cranial nerves: Yes CN's II-XII intact bilaterally Extrem General: Yes normal to inspection, Yes no clubbing, cyanosis or edema and Yes no calf tenderness Psych Appearance: grossly normal and well kempt Speech and movement: Normal speech and movement present Results Reviewed Results Reviewed: XRAY CHEST 06/12/24 IMPRESSION: Cardiomegaly. Right upper and middle lobe pneumonia. Trace right pleural effusion. Follow-up is recommended to document resolution. Electronically signed by: Alber Gaxiola MD 06/12/2024 11:52 AM EDT CHEST XRAY TODAY Cardiomegaly. Improvement in previously seen right upper and lower lobe pneumonia. Minimal residual opacities remain. Continued follow-up is recommended to document complete resolution. Assessment & Plan Assessment & Plan (1) COPD (chronic obstructive pulmonary disease): Comment: Has moderately severe chronic obstructive pulmonary disease . SHE HAS JUST RECOVERED FROM RECENT PNEUMONIA. COPD SEEMS TO BE WELL CONTROLLED AND LUNGS ARE CLEAR TODAY. Code(s): J44.9 - Chronic obstructive pulmonary disease, unspecified Category: Medical Plan: CONTINUE TO USE BREO 200-251 INHALATION DAILY ALBUTEROL HFA 2 PUFFS Q 6 HOURS P.R.N.. (2) Pulmonary nodule: Comment: IT WAS ACTUALLY A NONSPECIFIC GROUND-GLASS DENSITY IN THE LEFT UPPER LOBE., AND PER CT SCAN AT [facility] IT WAS RESOLVED. TREE IN BUD CHANGES AND NODULARITY IN THE RIGHT UPPER LOBE HAS ACTUALLY IMPROVED. Code(s): R91.1 - Solitary pulmonary nodule Category: Medical Plan: NO FURTHER FOLLOW-UP NEEDED (3) Pneumonia: Comment: ADD DESCRIBED ABOVE SHE WAS TREATED FOR MULTILOBAR PNEUMONIA, AT [facility] FOLLOWED BY STAY IN THE REHAB FOR A FEW WEEKS. .CLINICALLY SHE HAS RECOVERED CHEST X-RAY TODAY SHOWS ONLY MINIMAL RESIDUAL OPACITY, NO CONSOLIDATION. Code(s): J18.9 - Pneumonia, unspecified organism Category: Medical Plan: CONTINUE TO USE BREO 200-251 INHALATION DAILY AND ALBUTEROL HFA ONLY P.R.N.. MAY NEED TO REPEAT CHEST X-RAY AFTER 6 MONTHS AGAIN Orders: Orders XR chest 2V Today J18.9 - Pneumonia, unspecified organism, J44.9 - Chronic obstructive pulmonary disease, unspecified Coding Level of Care Code Est Pt Level 3 (98240) Diagnoses COPD (chronic obstructive pulmonary disease) J44.9 Pulmonary nodule R91.1 Pneumonia J18.9
[2024-07-24 10:03] VITALS: BP 112/58; PULSE 65; O2SAT 98; BMI 27.1
--- OUTSIDE RECORDS SUMMARY | 2024-07-24 10:20 | XMS_ITS | Encounter Summary ---
Author Organization [facility] Address [address] [place] [address] Care Team Providers Care Occupational Ther Name Role Phone Enedelia Rdz MD Primary Care Provider + Encounter Details Date Type Department Care Team (Late st Contact Info) Description 06/30/2024 Lab Requisition [facility] - Main Lab 299 [facility] [place] [address] Enedelia Rdz MD [address] [phone] Chronic kidney disease, unspecified; Gastro-esophageal reflux disease [...] MD LAB BLOOD ORDERABLES Fin al Result [facility] [address] [place] [address], * (ABNORMAL) Complete blood count (07/02/2024 8:30 AM EDT) WBC 5.5 4.8 - 10.8 K/mcL LAB HEMETOLOGY METHOD 07/02/2024 11:38 AM EDT [facility] RBC 3.20(L) 3.80 - 4.80 M/mcL LAB HEMETOLOGY METHOD [facility]24 [facility] Hemoglobin 10.1(L) 11.5 - 16.0 g/dL LAB HEMETOLOGY METHOD 07/02/2024 11:[address] [facility] Hematocrit 30.6(L) 35.0 - 47.0 % LAB HEMETOLOGY METHOD 07/02/2024 11:[address] [facility] MCV 96.5 79.0 - 98.0 [...] LAB HEMETOLOGY METHOD 07/02/2024 11:38 AM EDT [facility] NRBC 0.0 <1.0 % LAB HEMETOLOGY METHOD 07/02/2024 11:38 AM EDT [facility] NRBC Absolute 0.00 <0.10 K/mcL LAB HEMETOLOGY METHOD 07/02/2024 11:38 AM EDT [facility] Blood Venous blood specimen / Unknown Venipuncture / Unknown 07/02/2024 8:30 AM EDT 07/02/2024 11:09 AM EDT us Enedelia Rdz MD LAB BLOOD ORDERABLES Fin al Result [facility] [address] [place] [address], documented in this encounter Visit Diagnoses Diagnosis Chronic kidney disease, unspecified Gastro-esophageal reflux disease without esophagitis Essential (primary) hypertension Unspecified essential hypertension Thrombocytopenia, unspecified (CMS/HCC V24) Thrombocytopenia, unspecified documented in this encounter Care Teams Occupational Ther Relationship Specialty Start Date End Date Enedelia Rdz MD [address] [place] [address] PCP - General Family Medicine 06/22/24 documented as of this encounter
--- OUTSIDE RECORDS SUMMARY | 2024-07-24 10:20 | XMS_ITS | Data Portability ---
Author Organization [facility] [address] Address [address] [place] [address] Care Team Providers Care Drier Belt Conveyor Name Role Phone SARANATElizabethLUCILLE Primary Care Provider Assessment No assessment recorded. Plan of Treatment Reminders Order Date Submit Date Provider Last Modified By Organization Details Last Modified Time Details Appointments None recorded. Lab None recorded. Referral None recorded. Procedures None recorded. Surgeries None recorded. Imaging None recorded. Medication Orders doxycycline hyclate 100 mg tablet 2022 023 [id number], [address] [place], [place], [phone], 3 11:56:50 benzonatate 200 mg capsule 2022 023 [id number], [address] [place], [place], [phone], 3 11:56:50 Patient TargetsNo targets recorded. Patient Instructions Encounter Date Encounter Id Patient Instructions Last Modified By Organization Details Last Modified Time 09/11/2022 [id number] cough: care instructions [email or web address] Not available 09/11/2022 11:56:39 You are being [...] or lung pathology. Thank you for using [facility] today - please don't hesitate to contact up or return to see if you have any questions or concerns. Not available 09/11/2022 11:55:42 Reason for Referral None Reported. 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 Medical Equipment None Reported. Allergies Allergen ID Allergen Name Allergen Category Reaction Reaction Severity Criticality Documentation Date Start Date Code Code System Note Provider Name and Address Organization Details Recorded Time 292087 Compazine medicatio n Not available Not available Not available 09/11/2022 79048 6 RxNorm Allie Galeana null, PA - [facility] 3 11:19:10 114408 Fosamax medicatio n Not available Not available Not available 09/11/2022 03380 5 RxNorm Allie Galeana null, PA - [facility] 3 11:19:22 257077 Cipro medicatio n Not available Not available Not available 09/11/2022 85789 3 RxNorm Allie Galeana null, PA - [facility] 3 11:19:29 888022 Ceftin medicatio n Not available Not available Not available 09/11/2022 19844 6 RxNorm Allie Galeana null, PA - [...] Updated DateTime 3 160.02 cm 29.8 kg/m2 00221.5 2 g 5 20 /min 96 % 96 % 65 /min 98.5 [degF] 164 mm[Hg] 88 mm[Hg] Alliegautam Rangelellie PA - [facility] 3 11:27:38 Social History Question Answer Notes LastModified by [employer] Details LastModified Time Tobacco Smoking Status Never Smoker Allie richter, PA - [facility] 09/11/2022 11:25:16 Have You Recently Traveled Abroad? No Information not available 09/11/2022 Sex: Unknown Functional Status Question Answer Note LastModified by [employer] Details LastModified Time Do you use any illicit or recreational drugs? No Information not available 09/11/2022 Do you or have you ever used any other forms of tobacco or nicotine? No Information not available 09/11/2022 What is your level of alcohol consumption? None Information not available 09/11/2022 Mental Status None recorded. Family History Relationship [...] Influenza, MDCK, quadrivalent, PF 9 completed Allie Galeana null, [facility] - [facility] [...] SNOMED-CT Code Diagnosis ICD10 Code Diagnosis Note [id number] [address] [facility] [address] [place] [address] 01/12/2015 09:01:28 01/12/2015 09:34:14 [id number] [facility] [address] [address] [place] [address] 09/11/2022 11:07:38 09/11/2022 11:57:33 Acute sinusitis 43540272 J01.90 Cough 68538616 R05.9 History of Chronic Bronchitis . Hypertensive disorder 38 457525 I10 Your blood pressure was elevated today [...] Recorded Advance Directives Directive None Recorded Payers Insurance Date Sequence Insurance Name Policy Number Policy Camara Covered Member ID Camara Member ID Guarantor Name 09/13/2022 2 [place] [facility] ([facility] [id number] Benny Fofana [id number] Nayeli Fofana 09/13/2022 2 [place] Nayeli Fofana [id number] Nayelimarla Clayuch 09/11/2022 2 [place] Nayeli Fofana [id number] Nayelimarla Fofana 09/11/2022 1 [place] [employer] Nayeli Fofana [id number] Nayeli Fofana Notes Date Note Type [...] ISBELL [address] [place], [address], PA - [facility] 09/11/2022 13:31:17 OBGyn Episode No OBEpisode recorded.
--- OUTSIDE RECORDS SUMMARY | 2024-07-24 10:20 | XMS_ITS | Encounter Summary ---
Author Organization [facility] Address [address] [place] [address] Care Team Providers Care Systems Programmer Analyst Name Role Phone Enedelia Rdz MD Primary Care Provider + Encounter Details Date Type Department Care Team (Late st Contact Info) Description 06/25/2024 Lab Requisition [facility] - Main Lab [address] [facility] [place] [address] Enedelia Rdz MD [address] [phone] Chronic kidney disease, unspecified; Gastro-esophageal reflux disease [...] mmol/L LAB CHEMISTRY METHOD 06/25/2024 3:01 PM [facility] Potassium 3.9 3.5 - 5.5 mmol/L LAB CHEMISTRY METHOD 06/25/2024 3:01 PM [facility] Chloride 107 96 - 110 mmol/L LAB CHEMISTRY METHOD 06/25/2024 3:01 PM [facility] CO2 27 21 - 32 mmol/L LAB CHEMISTRY METHOD 06/25/2024 3:01 PM [facility] Anion Gap 6 3 - 11 LAB CHEMISTRY METHOD 06/25/2024 3:01 PM [facility] Glucose 60(L) 70 - 100 mg/dL LAB CHEMISTRY METHOD 06/25/2024 3:01 PM [facility] BUN 25 5 - 25 mg/dL LAB CHEMISTRY METHOD 06/25/2024 3:01 PM [facility] Creatinine 0.74 0.50 - 1.10 mg/dL LAB CHEMISTRY METHOD 06/25/2024 3:01 PM [facility] eGFR 84 >=60 mL/min/1. 73m2 LAB CHEMISTRY METHOD 06/25/2024 3:01 PM [facility] Comment:Calculation based on the??Chronic Kidney Disease Epidemiology Collaboration (CKD-EPI) equation refit??without adjustment for race. BUN/Creatinine Ratio 33.8 LAB CHEMISTRY METHOD 06/25/2024 3:01 PM [facility] Calcium 8.8 8.5 - 10.5 mg/dL LAB CHEMISTRY METHOD 06/25/2024 3:01 PM [facility] Blood Venous blood specimen / Unknown Venipuncture / Unknown 06/25/2024 7:57 AM EDT 06/25/2024 11:58 AM EDT us Enedelia Rdz MD LAB BLOOD ORDERABLES Fin al Result [facility] [address] [place] [address], * (ABNORMAL) Complete blood count (06/25/2024 7:57 AM EDT) WBC 11.3(H) 4.8 - 10.8 K/mcL LAB HEMETOLOGY METHOD 06/25/2024 12:56 PM EDT [facility] RBC 3.20(L) 3.80 - 4.80 M/mcL LAB HEMETOLOGY METHOD 06/25/2024 12:56 PM EDT [facility] Hemoglobin 9.9(L) 11.5 - 16.0 g/dL LAB HEMETOLOGY METHOD 06/25/2024 12:56 PM EDT [facility] Hematocrit 30.7(L) 35.0 - 47.0 % LAB HEMETOLOGY METHOD 06/25/2024 12:56 PM EDT [facility] MCV 95.0 79.0 - 98.0 FL LAB HEMETOLOGY METHOD 06/25/2024 12:56 PM EDT [facility] MCH 30.7 27.0 - 32.0 pcg LAB HEMETOLOGY METHOD 06/25/2024 12:56 PM EDT [facility] MCHC 32.2 32.0 - 37.0 g/dL LAB HEMETOLOGY METHOD 06/25/2024 12:56 PM EDT [facility] RDW 14.1 11.0 - 15.0 % LAB HEMETOLOGY METHOD 06/25/2024 12:56 PM EDT [facility] Platelets 209 130 - 400 K/mcL LAB HEMETOLOGY METHOD 06/25/2024 12:56 PM EDT [facility] MPV 10.4 7.0 - 11.0 FL LAB HEMETOLOGY METHOD 06/25/2024 12:56 PM EDT [facility] NRBC 0.0 <1.0 % LAB HEMETOLOGY METHOD 06/25/2024 12:56 PM EDT [facility] NRBC Absolute 0.00 <0.10 K/mcL LAB HEMETOLOGY METHOD 06/25/2024 12:56 PM EDT [facility] Blood Venous blood specimen / Unknown Venipuncture / Unknown 06/25/2024 7:57 AM EDT 06/25/2024 11:58 AM EDT us Enedelia Rdz MD LAB BLOOD ORDERABLES Fin al Result [facility] [address] [place] [address], documented in this encounter Visit Diagnoses Diagnosis Chronic kidney disease, unspecified Gastro-esophageal reflux disease without esophagitis Essential (primary) hypertension Unspecified essential hypertension Thrombocytopenia, unspecified (CMS/HCC V24) Thrombocytopenia, unspecified documented in this encounter Care Teams Systems Programmer Analyst Relationship Specialty Start Date End Date Enedelia Rdz MD [address] [place] [address] PCP - General Family Medicine 06/22/24 documented as of this encounter
--- OUTSIDE RECORDS SUMMARY | 2024-07-24 10:20 | XMS_ITS | Encounter Summary ---
Author Organization [facility] Address [address] [place] [address] Care Team Providers Care Door Frame Assembler Machine Name Role Phone Enedelia Rdz MD Primary Care Provider + Encounter Details Date Type Department Care Team (Late st Contact Info) Description 07/06/2024 Lab Requisition [facility] - Main Lab 299 [facility] [place] [address] Enedelia Rdz MD [address] [place] [phone] Chronic kidney disease, unspecified; Gastro-esophageal reflux disease [...] unspecified documented in this encounter Care Teams Door Frame Assembler Machine Relationship Specialty Start Date End Date Enedelia Rdz MD [address] [place] [address] PCP - General Family Medicine 06/22/24 documented as of this encounter
--- OUTSIDE RECORDS SUMMARY | 2024-07-24 10:20 | XMS_ITS | Clinical Summary ---
Author Organization [address] Address [address] [place] [phone] Phone Care Team Providers Care Customer Engagement Manager Name Role Phone Enedelia Rdz MD Primary Care Provider + Encounters Date Type Department Care Team Description 07/06/2024 Lab Requisition [facility] [address] [place] [phone] Enedelia Rdz MD Chronic kidney disease, unspecified; Gastro-esophageal reflux disease without esophagitis; Essential (primary) hypertension; Thrombocytopenia, unspecified (CMS/HCC V24) 06/30/2024 Lab Requisition [facility] [address] [place] [phone] Enedelia Rdz MD Chronic kidney disease, unspecified; Gastro-esophageal reflux disease without esophagitis; Essential (primary) hypertension; Thrombocytopenia, unspecified (CMS/HCC V24) 06/25/2024 Lab Requisition [facility] [address] [place] [phone] Enedelia Rdz MD Chronic kidney disease, unspecified; Gastro-esophageal reflux disease without esophagitis; Essential (primary) hypertension; Thrombocytopenia, unspecified (CMS/HCC V24) 06/22/2024 Lab Requisition [facility] [address] [place] [phone] Enedelia Rdz MD Chronic kidney disease, unspecified; [...] disease without esophagitis Thrombocytopenia, unspecified (CMS/HCC V24) [facility] DEXA AXIAL SKELETON Routine 01/04/2018 2:07 PM EDT Age-related osteoporosis without current pathological fracture from Last 3 Months or Most Recently Relevant to Health Maintenance Results * (ABNORMAL) Complete blood count (07/02/2024 8:30 AM EDT) Only the most recent of3 resultswithin the time period is included. WBC 5.5 4.8 - 10.8 K/mcL LAB HEMETOLOGY METHOD 07/02/2024 11:38 AM EDT [facility] RBC 3.20(L) 3.80 - 4.80 M/mcL LAB HEMETOLOGY METHOD 07/02/2024 11:38 AM [facility] Hemoglobin 10.1(L) 11.5 - 16.0 g/dL LAB HEMETOLOGY METHOD 07/02/2024 11:38 AM [facility] Hematocrit 30.6(L) 35.0 - 47.0 % LAB HEMETOLOGY METHOD 07/02/2024 11:38 AM T [facility] MCV 96.5 79.0 - 98.0 FL LAB HEMETOLOGY METHOD 07/02/2024 11:38 AM [facility] MCH 31.9 27.0 - 32.0 pcg LAB HEMETOLOGY METHOD 07/02/2024 11:38 AM [facility] MCHC 33.0 32.0 - 37.0 g/dL LAB HEMETOLOGY METHOD 07/02/2024 11:38 AM [facility] RDW 15.5(H) 11.0 - 15.0 % LAB HEMETOLOGY METHOD 07/02/2024 11:38 AM [facility] Platelets 150 130 - 400 K/mcL LAB HEMETOLOGY METHOD 07/02/2024 11:38 AM [facility] MPV 10.8 7.0 - 11.0 FL LAB HEMETOLOGY METHOD 07/02/2024 11:38 AM [facility] NRBC 0.0 <1.0 % LAB HEMETOLOGY METHOD 07/02/2024 11:38 AM [facility] NRBC Absolute 0.00 <0.10 K/mcL LAB HEMETOLOGY METHOD 07/02/2024 11:38 AM [facility] Blood Venous blood specimen / Unknown Venipuncture / Unknown 07/02/2024 8:30 AM EDT 07/02/2024 11:09 AM EDT us Enedelia Rdz MD LAB BLOOD ORDERABLES Fin al Result [facility] [address] [place] [address], * Basic metabolic panel (07/02/2024 8:30 AM EDT) Only the most recent of2 resultswithin the time period is included. Sodium 140 133 - 145 mmol/L LAB CHEMISTRY METHOD 07/02/2024 3:00 PM [facility] Potassium 4.5 3.5 - 5.5 mmol/L LAB CHEMISTRY METHOD 07/02/2024 3:00 PM [facility] Chloride 109 96 - 110 mmol/L LAB CHEMISTRY METHOD 07/02/2024 3:00 PM [facility] CO2 22 21 - 32 mmol/L LAB CHEMISTRY METHOD 07/02/2024 3:00 PM [facility] Anion Gap 9 3 - 11 LAB CHEMISTRY METHOD 07/02/2024 3:00 PM [facility] Glucose 78 70 - 100 mg/dL LAB CHEMISTRY METHOD 07/02/2024 3:00 PM [facility] BUN 22 5 - 25 mg/dL LAB CHEMISTRY METHOD 07/02/2024 3:00 PM [facility] Creatinine 0.96 0.50 - 1.10 mg/dL LAB CHEMISTRY METHOD 07/02/2024 3:00 PM [facility] eGFR 62 >=60 mL/min/1. 73m2 LAB CHEMISTRY METHOD 07/02/2024 3:00 PM [facility] Comment:Calculation based on the??Chronic Kidney Disease Epidemiology Collaboration (CKD-EPI) equation refit??without adjustment for race. BUN/Creatinine Ratio 22.9 LAB CHEMISTRY METHOD 07/02/2024 3:00 PM [facility] Calcium 8.8 8.5 - 10.5 mg/dL LAB CHEMISTRY METHOD 07/02/2024 3:00 PM [facility] Blood Venous blood specimen / Unknown Venipuncture / Unknown 07/02/2024 8:30 AM EDT 07/02/2024 11:09 AM EDT Enedelia Rdz MD LAB BLOOD ORDERABLES Fin al Result Performing Organization Address [facility]/ZIP Co de Phone Number [facility] [address] [place] [address], * (ABNORMAL) Magnesium (06/22/2024 6:36 AM EDT) [facility] Magnesium 1.5(L) 1.9 - 2.6 mg/dL LAB CHEMISTRY METHOD 06/22/2024 9:32 AM EDT [facility] Blood Venous blood specimen / Unknown Venipuncture / Unknown 06/22/2024 6:36 AM EDT 06/22/2024 8:02 AM EDT Enedelia Rdz MD LAB BLOOD ORDERABLES Fin al Result Performing Organization Address [facility] de Phone Number [facility] [address] [place] [address], * Folate (06/22/2024 6:36 AM EDT) [facility] Folate 9.5 2.8 - 17.0 ng/ml LAB CHEMISTRY METHOD 06/22/2024 9:55 AM EDT [facility] Blood Venous blood specimen / Unknown Venipuncture / Unknown 06/22/2024 6:36 AM EDT 06/22/2024 8:02 AM EDT Enedelia Rdz MD LAB BLOOD ORDERABLES Fin al Result Performing Organization Address [facility]/ZIP Co de Phone Number [facility] [address] [place] [address], * (ABNORMAL) Vitamin B12 (06/22/2024 6:36 AM EDT) [facility] Vitamin B-12 1,115(H) 250 - 900 pcg/mL LAB CHEMISTRY METHOD 06/22/2024 9:55 AM [facility] Blood Venous blood specimen / Unknown Venipuncture / Unknown 06/22/2024 6:36 AM EDT 06/22/2024 8:02 AM EDT us Enedelia Rdz MD LAB BLOOD ORDERABLES Fin al Result [facility] [address] [place] [address], * (ABNORMAL) Comprehensive metabolic panel (06/22/2024 6:36 AM EDT) Sodium 138 133 - 145 mmol/L LAB CHEMISTRY METHOD 06/22/2024 9:32 AM [facility] Potassium 3.9 3.5 - 5.5 mmol/L LAB CHEMISTRY METHOD 06/22/2024 9:32 AM [facility] Chloride 105 96 - 110 mmol/L LAB CHEMISTRY METHOD 06/22/2024 9:32 AM [facility] CO2 28 21 - 32 mmol/L LAB CHEMISTRY METHOD 06/22/2024 9:32 AM [facility] Anion Gap 5 3 - 11 LAB CHEMISTRY METHOD 06/22/2024 9:32 AM [facility] Glucose 83 70 - 100 mg/dL LAB CHEMISTRY METHOD 06/22/2024 9:32 AM [facility] BUN 17 5 - 25 mg/dL LAB CHEMISTRY METHOD 06/22/2024 9:32 AM [facility] Creatinine 0.72 0.50 - 1.10 mg/dL LAB CHEMISTRY METHOD 06/22/2024 9:32 AM [facility] eGFR 87 >=60 mL/min/1. 73m2 LAB CHEMISTRY METHOD 06/22/2024 9:32 AM [facility] Comment:Calculation based on the??Chronic Kidney Disease Epidemiology Collaboration (CKD-EPI) equation refit??without adjustment for race. BUN/Creatinine Ratio 23.6 LAB CHEMISTRY METHOD 06/22/2024 9:32 AM [facility] Calcium 8.3(L) 8.5 - 10.5 mg/dL LAB CHEMISTRY METHOD 06/22/2024 9:32 AM [facility] AST (SGOT) 25 10 - 42 unit/L LAB CHEMISTRY METHOD 06/22/2024 9:32 AM [facility] ALT (SGPT) 16 10 - 60 unit/L LAB CHEMISTRY METHOD 06/22/2024 9:32 AM [facility] Alkaline Phosphatase 61 42 - 121 unit/L LAB CHEMISTRY METHOD 06/22/2024 9:32 AM [facility] Total Protein 5.2(L) 6.0 - 8.0 g/dL LAB CHEMISTRY METHOD 06/22/2024 9:32 AM [facility] Albumin 2.2(L) 3.2 - 5.0 g/dL LAB CHEMISTRY METHOD 06/22/2024 9:32 AM [facility] Total Bilirubin 1.7(H) 0.0 - 1.4 mg/dL LAB CHEMISTRY METHOD 06/22/2024 9:32 AM [facility] Blood Venous blood specimen / Unknown Venipuncture / Unknown 06/22/2024 6:36 AM EDT 06/22/2024 8:02 AM EDT us Enedelia Rdz MD LAB BLOOD ORDERABLES Fin al Result [facility] [address] [place] [address], * JOSE LUIS DEXA AXIAL SKELETON (01/04/2018 2:07 PM EDT) Anatomical Region Laterality Modality Mammography 01/04/2018 12:5 7 PM EDT Narrative 01/04/2018 2:07 PM EDT [facility] Diagnostic Imaging Department [address] [place] [id number] Patient: ??BONNIE ZAMBRANO ?/Age/Sex: 1950 67 - F Unit#: ??[id number] ? Location/Status: ??SPDIMAM/REG CLI ? Mnemonic/Ordering Site: ??MAMDEXAAX/SPMAM Ordering Physician: ??JEANNE KILLIAN MD [facility] Dexa Axial Skeleton - 01/04/18 [...] probability of hip fracture of 7.0%. Code 75511 Dictating Physician: ??PEE KILGORE MD Electronically Signed by: ??PEE KILGORE MD Dic Date/Time: ??01/04/18 1404 Sign date/Time: ??01/04/18 140 Procedure Note Pee Kilgore MD - 03/02/2022 [facility] Diagnostic Imaging Department [address] [place] [address] Patient: BONNIE ZAMBRANO Hazel ThomasB./Age/Sex: 1950 - 67 - F Unit#: [id number] Location/Status: [facility] Ordering Physician: JEANNE KILLIAN MD Jose Luis [...] density of the femurs bilaterally is 0.745 gm/fi8grfpk is 74% of that of young normals [...] probability of hip fracture of 7.0%. Code 69160 Dictating Physician: PEE KILGORE MD Electronically Signed by: PEE KILGORE MD Dic Date/Time: 01/04/18 1404 Sign date/Time: 01/04/18 1407 Jeanne Killian MD [facility] BI PROCEDURES Final Result from Last 3 Months or Most Recently Relevant to Health Maintenance Insurance MEDICARE [facility] Care Teams Customer Engagement Manager Relationship Specialty Start Date End Date Enedelia Rdz MD [address] [place] [address] PCP - General Family Medicine 06/22/24
--- OUTSIDE RECORDS SUMMARY | 2024-07-24 10:20 | XMS_ITS | Encounter Summary ---
Author Organization [facility] Address [address] [place] [address] Care Team Providers Care Correctional Supervisor Name Role Phone Enedelia Rdz MD Primary Care Provider + Encounter Details Date Type Department Care Team (Late st Contact Info) Description 06/22/2024 Lab Requisition [facility] - Main Lab [address] [facility] [employer] [place] [address] Enedelia Rdz MD [address] [address] Chronic kidney disease, unspecified; Essential [...] * (ABNORMAL) Magnesium (06/22/2024 6:36 AM EDT) [facility] Magnesium 1.5(L) 1.9 - 2.6 mg/dL LAB CHEMISTRY METHOD 06/22/2024 9:32 AM EDT [facility] Blood Venous blood specimen / Unknown Venipuncture / Unknown 06/22/2024 6:36 AM EDT 06/22/2024 8:02 AM EDT us Enedelia Rdz MD LAB BLOOD ORDERABLES Fin al Result [facility] [address] [place] [address], * (ABNORMAL) Vitamin B12 (06/22/2024 6:36 AM EDT) [facility] Vitamin B-12 1,115(H) 250 - 900 pcg/mL LAB CHEMISTRY METHOD 06/22/2024 9:55 AM EDT [facility] Blood Venous blood specimen / Unknown Venipuncture / Unknown 06/22/2024 6:36 AM EDT 06/22/2024 8:02 AM EDT Enedelia Rdz MD LAB BLOOD ORDERABLES Fin al Result [facility] [address] [place] [address], [place] [phone] * Folate (06/22/2024 6:36 AM EDT) [facility] Folate 9.5 2.8 - 17.0 ng/ml LAB CHEMISTRY METHOD 06/22/2024 9:55 AM EDT [facility] Blood Venous blood specimen / Unknown Venipuncture / Unknown 06/22/2024 6:36 AM EDT 06/22/2024 8:02 AM EDT Enedelia Rdz MD LAB BLOOD ORDERABLES Fin al Result [facility] [address] [place] [address], [place] [phone] * (ABNORMAL) Comprehensive metabolic panel (06/22/2024 6:36 AM EDT) [facility] Sodium 138 133 - 145 mmol/L LAB CHEMISTRY METHOD 06/22/2024 9:32 AM EDT [facility] Potassium 3.9 3.5 - 5.5 mmol/L LAB CHEMISTRY METHOD 06/22/2024 9:32 AM EDT [facility] Chloride 105 96 - 110 mmol/L LAB CHEMISTRY METHOD 06/22/2024 9:32 AM EDT [facility] CO2 28 21 - 32 mmol/L LAB CHEMISTRY METHOD 06/22/2024 9:32 AM [facility] Anion Gap 5 3 - 11 LAB CHEMISTRY METHOD 06/22/2024 9:32 AM [facility] Glucose 83 70 - 100 mg/dL LAB CHEMISTRY METHOD 06/22/2024 9:32 AM [facility] BUN 17 5 - 25 mg/dL LAB CHEMISTRY METHOD 06/22/2024 9:32 AM [facility] Creatinine 0.72 0.50 - 1.10 mg/dL LAB CHEMISTRY METHOD 06/22/2024 9:32 AM [facility] eGFR 87 >=60 mL/min/1. 73m2 LAB CHEMISTRY METHOD 06/22/2024 9:32 AM [facility] Comment:Calculation based on the??Chronic Kidney Disease Epidemiology Collaboration (CKD-EPI) equation refit??without adjustment for race. BUN/Creatinine Ratio 23.6 LAB CHEMISTRY METHOD 06/22/2024 9:32 AM [facility] Calcium 8.3(L) 8.5 - 10.5 mg/dL LAB CHEMISTRY METHOD 06/22/2024 9:32 AM [facility] AST (SGOT) 25 10 - 42 unit/L LAB CHEMISTRY METHOD 06/22/2024 9:32 AM [facility] ALT (SGPT) 16 10 - 60 unit/L LAB CHEMISTRY METHOD 06/22/2024 9:32 AM [facility] Alkaline Phosphatase 61 42 - 121 unit/L LAB CHEMISTRY METHOD 06/22/2024 9:32 AM [facility] Total Protein 5.2(L) 6.0 - 8.0 g/dL LAB CHEMISTRY METHOD 06/22/2024 9:32 AM [facility] Albumin 2.2(L) 3.2 - 5.0 g/dL LAB CHEMISTRY METHOD 06/22/2024 9:32 AM [facility] Total Bilirubin 1.7(H) 0.0 - 1.4 mg/dL LAB CHEMISTRY METHOD 06/22/2024 9:32 AM [facility] Blood Venous blood specimen / Unknown Venipuncture / Unknown 06/22/2024 6:36 AM EDT 06/22/2024 8:02 AM EDT us Enedelia Rdz MD LAB BLOOD ORDERABLES Fin al Result [facility] [address] [place] [address], * (ABNORMAL) Complete blood count (06/22/2024 6:36 AM EDT) WBC 5.6 4.8 - 10.8 K/mcL LAB HEMETOLOGY METHOD 06/22/2024 9:02 AM [facility] RBC 2.90(L) 3.80 - 4.80 M/mcL LAB HEMETOLOGY METHOD 06/22/2024 9:02 AM [facility] Hemoglobin 9.0(L) 11.5 - 16.0 g/dL LAB HEMETOLOGY METHOD 06/22/2024 9:02 AM [facility] Hematocrit 27.1(L) 35.0 - 47.0 % LAB HEMETOLOGY METHOD 06/22/2024 9:02 AM [facility] MCV 92.2 79.0 - 98.0 FL LAB HEMETOLOGY METHOD 06/22/2024 9:02 AM [facility] MCH 30.6 27.0 - 32.0 pcg LAB HEMETOLOGY METHOD 06/22/2024 9:02 AM [facility] MCHC 33.2 32.0 - 37.0 g/dL [...] al Result [facility] [address] [place] [address], documented in this encounter Visit Diagnoses Diagnosis Chronic kidney disease, unspecified Essential (primary) hypertension Unspecified essential hypertension Chronic obstructive pulmonary disease, unspecified (CMS/HCC V24, CMS/HCC V28) Gastro-esophageal reflux disease without esophagitis Thrombocytopenia, unspecified (CMS/HCC V24) Thrombocytopenia, unspecified documented in this encounter Care Teams Correctional Supervisor Relationship Specialty Start Date End Date Enedelia Rdz MD [address] [place] [address] PCP - General Family Medicine 06/22/24 documented as of this encounter
--- OUTSIDE RECORDS SUMMARY | 2024-07-24 10:20 | XMS_ITS | Patient Health Record ---
Author Organization [facility] Address [address] [place] [address] Care Team Providers Care Traffic I Manager Name Role Phone Jeanne Killian MD Primary Care Provider Unavaila ble Black, Tessa Unavailable [phone] Allergies Allergen (clinical drug ingredient) Drug/Non Drug [...] Problem Acquired hammer toe of right foot (1880798454584717) Other hammer toe(s) (acquired), right foot (M20.41) Active confirmed Problem Acquired hammer toe of left foot ([id number]) Other hammer toe(s) (acquired), left foot (M20.42) Active confirmed Problem [id number] Hallux valgus (acquired), left foot (M20.12) Active confirmed Problem [id number] Hallux valgus (acquired), right foot (M20.11) Active confirmed Problem Localized, primary osteoarthritis of the ankle and/or foot (633832981) Osteoarthritis of right ankle and foot (M19.071) Active confirmed Problem Localized, primary osteoarthritis of the ankle and/or foot (161744839) Osteoarthritis of left ankle and foot (M19.072) Active confirmed Plan Of Treatment No Information Insurance Providers Payer Name Payer Address Payer Phone Subscriber Number Group Number Insured Name Patient Relationship to Insured Coverage Start Date Coverage End Date Medicare National Govt [employer] [facility] [address] [facility] [address] [id number] Nayeli Fofana Self - patient is the insured [employer] [facility] [address] [place] [address] [phone] [id number] Nayeli Fofana Self - patient is the insured Medical (General) History Medical History History ICD Code Arthritis asthma Gall bladder problems High blood pressure Kidney disease Liver disease Osteoporosis Measles Mumps Chicken pox Transfusions Congenitive Hepatic Fibrosis Surgical History Surgery Date(Month/Year) Breast Surgery x2 1978,2020 kidney surgery 2016 gall bladder 2013 hernia
== END 2024-07-24 10:24 | disposition home or self-care (01) ==
LOC: HO.HPS 09:38
PROVIDERS: PCP Internal Medicine; Visit Provider Internal Medicine
DX: J44.9 Chronic obstructive pulmonary disease, unspecified (principal); R91.1 Solitary pulmonary nodule; J18.9 Pneumonia, unspecified organism
CPT/HCPCS: 99213

== ENCOUNTER 2024-07-24 09:38 | Outpatient (REF) | payer MEDICARE, SELFPAY ==
--- NOTE | ~2024-07-24 | XR_ITS ---
EXAMINATION: XR CHEST 2 VIEWS HISTORY: J18.9 - Pneumonia, unspecified organism COMPARISON: Comparison is made with the prior examination dated 06/12/2024. FINDINGS: PA and lateral views of the chest are submitted. Again seen are hazy increased interstitial markings. There has been improvement in previously seen right upper and lower lobe pneumonia. Minimal residual opacities remain. There is no pleural effusion, pneumothorax, or pulmonary vascular congestion. The heart remains enlarged. There is degenerative disc disease and dextroscoliosis of the spine. There are surgical clips in the right axilla. XR/XR chest 2V IMPRESSION: Cardiomegaly. Improvement in previously seen right upper and lower lobe pneumonia. Minimal residual opacities remain. Continued follow-up is recommended to document complete resolution. Electronically signed by: Alber Gaxiola MD 07/24/2024 10:44 AM EDT
--- OUTSIDE RECORDS SUMMARY | 2024-07-24 11:33 | XMS_ITS | Encounter Summary ---
Author Organization [facility] Address [address] [place] [address] Care Team Providers Care Mathematics Teacher Name Role Phone Enedelia Rdz MD Primary Care Provider + Encounter Details Date Type Department Care Team (Late st Contact Info) Description 06/25/2024 Lab Requisition [facility] - Main Lab 299 [facility] [place] [address] Enedelia Rdz MD [address] [phone] Chronic kidney disease, unspecified; Gastro-esophageal reflux disease [...] mmol/L LAB CHEMISTRY METHOD 06/25/2024 3:01 PM [facility] Potassium 3.9 3.5 - 5.5 mmol/L LAB CHEMISTRY METHOD 06/25/2024 3:01 PM [facility] Chloride 107 96 - 110 mmol/L LAB CHEMISTRY METHOD 06/25/2024 3:01 PM [facility] CO2 27 21 - 32 mmol/L LAB CHEMISTRY METHOD 06/25/2024 3:01 PM [facility] Anion Gap 6 3 - 11 LAB CHEMISTRY METHOD 06/25/2024 3:01 PM [facility] Glucose 60(L) 70 - 100 mg/dL LAB CHEMISTRY METHOD 06/25/2024 3:01 PM [facility] BUN 25 5 - 25 mg/dL LAB CHEMISTRY METHOD 06/25/2024 3:01 PM [facility] Creatinine 0.74 0.50 - 1.10 mg/dL LAB CHEMISTRY METHOD 06/25/2024 3:01 PM [facility] eGFR 84 >=60 mL/min/1. 73m2 LAB CHEMISTRY METHOD 06/25/2024 3:01 PM [facility] Comment:Calculation based on the??Chronic Kidney Disease Epidemiology Collaboration (CKD-EPI) equation refit??without adjustment for race. BUN/Creatinine Ratio 33.8 LAB CHEMISTRY METHOD 06/25/2024 3:01 PM [facility] Calcium 8.8 8.5 - 10.5 mg/dL LAB CHEMISTRY METHOD 06/25/2024 3:01 PM [facility] Blood Venous blood specimen / Unknown Venipuncture / Unknown 06/25/2024 7:57 AM EDT 06/25/2024 11:58 AM EDT us Enedelia Rdz MD LAB BLOOD ORDERABLES Fin al Result [facility] [address] [place] [address], * (ABNORMAL) Complete blood count (06/25/2024 7:57 AM EDT) WBC 11.3(H) 4.8 - 10.8 K/mcL LAB HEMETOLOGY METHOD 06/25/2024 12:56 PM EDT [facility] RBC 3.20(L) 3.80 - 4.80 M/mcL LAB HEMETOLOGY METHOD 06/25/2024 12:56 PM EDT [facility] Hemoglobin 9.9(L) 11.5 - 16.0 g/dL LAB HEMETOLOGY METHOD 06/25/2024 12:56 PM EDT [facility] Hematocrit 30.7(L) 35.0 - 47.0 % LAB HEMETOLOGY METHOD 06/25/2024 12:56 PM EDT [facility] MCV 95.0 79.0 - 98.0 FL LAB HEMETOLOGY METHOD 06/25/2024 12:56 PM EDT [facility] MCH 30.7 27.0 - 32.0 pcg LAB HEMETOLOGY METHOD 06/25/2024 12:56 PM EDT [facility] MCHC 32.2 32.0 - 37.0 g/dL LAB HEMETOLOGY METHOD 06/25/2024 12:56 PM EDT [facility] RDW 14.1 11.0 - 15.0 % LAB HEMETOLOGY METHOD 06/25/2024 12:56 PM EDT [facility] Platelets 209 130 - 400 K/mcL LAB HEMETOLOGY METHOD 06/25/2024 12:56 PM EDT [facility] MPV 10.4 7.0 - 11.0 FL LAB HEMETOLOGY METHOD 06/25/2024 12:56 PM EDT [facility] NRBC 0.0 <1.0 % LAB HEMETOLOGY METHOD 06/25/2024 12:56 PM EDT [facility] NRBC Absolute 0.00 <0.10 K/mcL LAB HEMETOLOGY METHOD 06/25/2024 12:56 PM EDT [facility] Blood Venous blood specimen / Unknown Venipuncture / Unknown 06/25/2024 7:57 AM EDT 06/25/2024 11:58 AM EDT us Enedelia Rdz MD LAB BLOOD ORDERABLES Fin al Result [facility] [address] [place] [address], documented in this encounter Visit Diagnoses Diagnosis Chronic kidney disease, unspecified Gastro-esophageal reflux disease without esophagitis Essential (primary) hypertension Unspecified essential hypertension Thrombocytopenia, unspecified (CMS/HCC V24) Thrombocytopenia, unspecified documented in this encounter Care Teams Mathematics Teacher Relationship Specialty Start Date End Date Enedelia Rdz MD [address] [place] [address] PCP - General Family Medicine 06/22/24 documented as of this encounter
--- OUTSIDE RECORDS SUMMARY | 2024-07-24 11:33 | XMS_ITS | Encounter Summary ---
Author Organization [facility] Address [address] [place] [address] Care Team Providers Care [employer] Field Supervisor Name Role Phone Enedelia Rdz MD Primary Care Provider + Encounter Details Date Type Department Care Team (Late st Contact Info) Description 06/22/2024 Lab Requisition [facility] - Main Lab 299 [facility] [place] [address] Enedelia Rdz MD [address] [address] Chronic kidney disease, unspecified; Essential [...] * (ABNORMAL) Magnesium (06/22/2024 6:36 AM EDT) [facility] Magnesium 1.5(L) 1.9 - 2.6 mg/dL LAB CHEMISTRY METHOD 06/22/2024 9:32 AM EDT [facility] Blood Venous blood specimen / Unknown Venipuncture / Unknown 06/22/2024 6:36 AM EDT 06/22/2024 8:02 AM EDT us Enedelia Rdz MD LAB BLOOD ORDERABLES Fin al Result [facility] [address] [place] [address], * (ABNORMAL) Vitamin B12 (06/22/2024 6:36 AM EDT) [facility] Vitamin B-12 1,115(H) 250 - 900 pcg/mL LAB CHEMISTRY METHOD 06/22/2024 9:55 AM EDT [facility] Blood Venous blood specimen / Unknown Venipuncture / Unknown 06/22/2024 6:36 AM EDT 06/22/2024 8:02 AM EDT Enedelia Rdz MD LAB BLOOD ORDERABLES Fin al Result [facility] [address] [place] [address], [place] [phone] * Folate (06/22/2024 6:36 AM EDT) [facility] Folate 9.5 2.8 - 17.0 ng/ml LAB CHEMISTRY METHOD 06/22/2024 9:55 AM EDT [facility] Blood Venous blood specimen / Unknown Venipuncture / Unknown 06/22/2024 6:36 AM EDT 06/22/2024 8:02 AM EDT Enedelia Rdz MD LAB BLOOD ORDERABLES Fin al Result [facility] [address] [place] [address], [place] [phone] * (ABNORMAL) Comprehensive metabolic panel (06/22/2024 6:36 AM EDT) [facility] Sodium 138 133 - 145 mmol/L LAB CHEMISTRY METHOD 06/22/2024 9:32 AM EDT [facility] Potassium 3.9 3.5 - 5.5 mmol/L LAB CHEMISTRY METHOD 06/22/2024 9:32 AM EDT [facility] Chloride 105 96 - 110 mmol/L LAB CHEMISTRY METHOD 06/22/2024 9:32 AM EDT [facility] CO2 28 21 - 32 mmol/L LAB CHEMISTRY METHOD 06/22/2024 9:32 AM [facility] Anion Gap 5 3 - 11 LAB CHEMISTRY METHOD 06/22/2024 9:32 AM [facility] Glucose 83 70 - 100 mg/dL LAB CHEMISTRY METHOD 06/22/2024 9:32 AM [facility] BUN 17 5 - 25 mg/dL LAB CHEMISTRY METHOD 06/22/2024 9:32 AM [facility] Creatinine 0.72 0.50 - 1.10 mg/dL LAB CHEMISTRY METHOD 06/22/2024 9:32 AM [facility] eGFR 87 >=60 mL/min/1. 73m2 LAB CHEMISTRY METHOD 06/22/2024 9:32 AM [facility] Comment:Calculation based on the??Chronic Kidney Disease Epidemiology Collaboration (CKD-EPI) equation refit??without adjustment for race. BUN/Creatinine Ratio 23.6 LAB CHEMISTRY METHOD 06/22/2024 9:32 AM [facility] Calcium 8.3(L) 8.5 - 10.5 mg/dL LAB CHEMISTRY METHOD 06/22/2024 9:32 AM [facility] AST (SGOT) 25 10 - 42 unit/L LAB CHEMISTRY METHOD 06/22/2024 9:32 AM [facility] ALT (SGPT) 16 10 - 60 unit/L LAB CHEMISTRY METHOD 06/22/2024 9:32 AM [facility] Alkaline Phosphatase 61 42 - 121 unit/L LAB CHEMISTRY METHOD 06/22/2024 9:32 AM [facility] Total Protein 5.2(L) 6.0 - 8.0 g/dL LAB CHEMISTRY METHOD 06/22/2024 9:32 AM [facility] Albumin 2.2(L) 3.2 - 5.0 g/dL LAB CHEMISTRY METHOD 06/22/2024 9:32 AM [facility] Total Bilirubin 1.7(H) 0.0 - 1.4 mg/dL LAB CHEMISTRY METHOD 06/22/2024 9:32 AM [facility] Blood Venous blood specimen / Unknown Venipuncture / Unknown 06/22/2024 6:36 AM EDT 06/22/2024 8:02 AM EDT us Enedelia Rdz MD LAB BLOOD ORDERABLES Fin al Result [facility] [address] [place] [address], * (ABNORMAL) Complete blood count (06/22/2024 6:36 AM EDT) WBC 5.6 4.8 - 10.8 K/mcL LAB HEMETOLOGY METHOD 06/22/2024 9:02 AM [facility] RBC 2.90(L) 3.80 - 4.80 M/mcL LAB HEMETOLOGY METHOD 06/22/2024 9:02 AM [facility] Hemoglobin 9.0(L) 11.5 - 16.0 g/dL LAB HEMETOLOGY METHOD 06/22/2024 9:02 AM [facility] Hematocrit 27.1(L) 35.0 - 47.0 % LAB HEMETOLOGY METHOD 06/22/2024 9:02 AM [facility] MCV 92.2 79.0 - 98.0 FL LAB HEMETOLOGY METHOD 06/22/2024 9:02 AM [facility] MCH 30.6 27.0 - 32.0 pcg LAB HEMETOLOGY METHOD 06/22/2024 9:02 AM [facility] MCHC 33.2 32.0 - 37.0 g/dL LAB HEMETOLOGY METHOD 06/22/2024 9:02 AM EDT [facility] RDW 13.4 11.0 - 15.0 % LAB HEMETOLOGY METHOD 06/22/2024 9:02 AM EDT [facility] Platelets 108(L) 130 - 400 K/mcL LAB HEMETOLOGY METHOD 06/22/2024 9:02 AM EDT [facility] MPV 10.2 7.0 - 11.0 FL LAB HEMETOLOGY METHOD 06/22/2024 9:02 AM EDT [facility] NRBC 0.0 <1.0 % LAB HEMETOLOGY METHOD 06/22/2024 9:02 AM EDT [facility] NRBC Absolute 0.00 <0.10 K/mcL LAB HEMETOLOGY METHOD 06/22/2024 9:02 AM EDT [facility] Blood Venous blood specimen / Unknown Venipuncture / Unknown 06/22/2024 6:36 AM EDT 06/22/2024 8:02 AM EDT us Enedelia Rdz MD LAB BLOOD ORDERABLES Fin al Result [facility] [address] [place] [address], documented in this encounter Visit Diagnoses Diagnosis Chronic kidney disease, unspecified Essential (primary) hypertension Unspecified essential hypertension Chronic obstructive pulmonary disease, unspecified (CMS/HCC V24, CMS/HCC V28) Gastro-esophageal reflux disease without esophagitis Thrombocytopenia, unspecified (CMS/HCC V24) Thrombocytopenia, unspecified documented in this encounter Care Teams [employer] Field Supervisor Relationship Specialty Start Date End Date Enedelia Rdz MD [address] [place] [address] PCP - General Family Medicine 06/22/24 documented as of this encounter
--- OUTSIDE RECORDS SUMMARY | 2024-07-24 11:33 | XMS_ITS | Encounter Summary ---
Author Organization [facility] Address [address] [place] [address] Care Team Providers Care Captain/Check Airman Name Role Phone Enedelia Rdz MD Primary Care Provider + Encounter Details Date Type Department Care Team (Late st Contact Info) Description 06/30/2024 Lab Requisition [facility] - Main Lab 299 [facility] [place] [address] Enedelia Rdz MD [address] [phone] Chronic kidney disease, unspecified; Gastro-esophageal reflux disease [...] mmol/L LAB CHEMISTRY METHOD 07/02/2024 3:00 PM [facility] Potassium 4.5 3.5 - 5.5 mmol/L LAB CHEMISTRY METHOD 07/02/2024 3:00 PM [facility] Chloride 109 96 - 110 mmol/L LAB CHEMISTRY METHOD 07/02/2024 3:00 PM [facility] CO2 22 21 - 32 mmol/L LAB CHEMISTRY METHOD 07/02/2024 3:00 PM [facility] Anion Gap 9 3 - 11 LAB CHEMISTRY METHOD 07/02/2024 3:00 PM [facility] Glucose 78 70 - 100 mg/dL LAB CHEMISTRY METHOD 07/02/2024 3:00 PM [facility] BUN 22 5 - 25 mg/dL LAB CHEMISTRY METHOD 07/02/2024 3:00 PM [facility] Creatinine 0.96 0.50 - 1.10 mg/dL LAB CHEMISTRY METHOD 07/02/2024 3:00 PM [facility] eGFR 62 >=60 mL/min/1. 73m2 LAB CHEMISTRY METHOD 07/02/2024 3:00 PM [facility] Comment:Calculation based on the??Chronic Kidney Disease Epidemiology Collaboration (CKD-EPI) equation refit??without adjustment for race. BUN/Creatinine Ratio 22.9 LAB CHEMISTRY METHOD 07/02/2024 3:00 PM [facility] Calcium 8.8 8.5 - 10.5 mg/dL LAB CHEMISTRY METHOD 07/02/2024 3:00 PM [facility] Blood Venous blood specimen / Unknown Venipuncture / Unknown 07/02/2024 8:30 AM EDT 07/02/2024 11:09 AM EDT us Enedelia Rdz MD LAB BLOOD ORDERABLES Fin al Result [facility] [address] [place] [address], * (ABNORMAL) Complete blood count (07/02/2024 8:30 AM EDT) WBC 5.5 4.8 - 10.8 K/mcL LAB HEMETOLOGY METHOD 07/02/2024 11:38 AM EDT [facility] RBC 3.20(L) 3.80 - 4.80 M/mcL LAB HEMETOLOGY METHOD [facility]02[facility]24 11[facility] Hemoglobin 10.1(L) 11.5 - 16.0 g/dL LAB HEMETOLOGY METHOD 07/02/2024 11:38 AM [facility] Hematocrit 30.6(L) 35.0 - 47.0 % LAB HEMETOLOGY METHOD 07/02/2024 11:38 AM [facility] MCV 96.5 79.0 - 98.0 FL LAB HEMETOLOGY METHOD 07/02/2024 11:38 AM [facility] MCH 31.9 27.0 - 32.0 pcg LAB HEMETOLOGY METHOD 07/02/2024 11:38 AM [facility] MCHC 33.0 32.0 - 37.0 g/dL LAB HEMETOLOGY METHOD 07/02/2024 11:38 AM [facility] RDW 15.5(H) 11.0 - 15.0 % LAB HEMETOLOGY METHOD 07/02/2024 11:38 AM [facility] Platelets 150 130 - 400 K/mcL LAB HEMETOLOGY METHOD 07/02/2024 11:38 AM [facility] MPV 10.8 7.0 - 11.0 FL LAB HEMETOLOGY METHOD 07/02/2024 11:38 AM EDT [facility] NRBC 0.0 <1.0 % LAB HEMETOLOGY METHOD 07/02/2024 11:38 AM EDT [facility] NRBC Absolute 0.00 <0.10 K/mcL LAB HEMETOLOGY METHOD 07/02/2024 11:38 AM EDT [facility] Blood Venous blood specimen / Unknown Venipuncture / Unknown 07/02/2024 8:30 AM EDT 07/02/2024 11:09 AM EDT us Enedelia Rdz MD LAB BLOOD ORDERABLES Fin al Result [facility] [address] [place] [address], documented in this encounter Visit Diagnoses Diagnosis Chronic kidney disease, unspecified Gastro-esophageal reflux disease without esophagitis Essential (primary) hypertension Unspecified essential hypertension Thrombocytopenia, unspecified (CMS/HCC V24) Thrombocytopenia, unspecified documented in this encounter Care Teams Captain/Check Airman Relationship Specialty Start Date End Date Enedelia Rdz MD [address] [place] [address] PCP - General Family Medicine 06/22/24 documented as of this encounter
--- OUTSIDE RECORDS SUMMARY | 2024-07-24 11:33 | XMS_ITS | Clinical Summary ---
Author Organization [address] Address [address] [place] [phone] Phone Care Team Providers Care Flight Physician Name Role Phone Enedelia Rdz MD Primary Care Provider + Encounters Date Type Department Care Team Description 07/06/2024 Lab Requisition [facility] Lab [address] [place] [phone] Enedelia Rdz MD Chronic kidney disease, unspecified; Gastro-esophageal reflux disease without esophagitis; Essential (primary) hypertension; Thrombocytopenia, unspecified (CMS/HCC V24) 06/30/2024 Lab Requisition [facility] Lab [address] [place] [phone] Enedelia Rdz MD Chronic kidney disease, unspecified; Gastro-esophageal reflux disease without esophagitis; Essential (primary) hypertension; Thrombocytopenia, unspecified (CMS/HCC V24) 06/25/2024 Lab Requisition [facility] Lab [address] [place] [phone] Enedelia Rdz MD Chronic kidney disease, unspecified; Gastro-esophageal reflux disease without esophagitis; Essential (primary) hypertension; Thrombocytopenia, unspecified (CMS/HCC V24) 06/22/2024 Lab Requisition [facility] Lab [address] [place] [phone] Enedelia Rdz MD Chronic kidney disease, unspecified; [...] disease without esophagitis Thrombocytopenia, unspecified (CMS/HCC V24) [facility] DEXA AXIAL SKELETON Routine 01/04/2018 [...] LAB HEMETOLOGY METHOD 07/02/2024 11:38 AM T [facility] MCV 96.5 79.0 [...] [facility] [address] [place] [address], * Basic metabolic panel (07/02/2024 8:30 AM [...] ORDERABLES Fin al Result Performing Organization Address [facility]/ZIP Co de Phone Number [facility] [address] [place] [address], * (ABNORMAL) Magnesium (06/22/2024 6:36 AM EDT) [facility] Magnesium 1.5(L) 1.9 - 2.6 mg/dL LAB CHEMISTRY METHOD 06/22/2024 9:32 AM EDT [facility] Blood Venous blood specimen / Unknown Venipuncture / Unknown 06/22/2024 6:36 AM EDT 06/22/2024 8:02 AM EDT Enedelia Rdz MD LAB BLOOD ORDERABLES Fin al Result Performing Organization Address [facility] de Phone Number [facility] [address] [place] [address], * Folate (06/22/2024 6:36 AM EDT) [facility] Folate 9.5 2.8 - 17.0 ng/ml LAB CHEMISTRY METHOD 06/22/2024 9:55 AM EDT [facility] Blood Venous blood specimen / Unknown Venipuncture / Unknown 06/22/2024 6:36 AM EDT 06/22/2024 8:02 AM EDT Enedelia Rdz MD LAB BLOOD ORDERABLES Fin al Result Performing Organization Address [facility]/ZIP Co de Phone Number [facility] [address] [place] [address], * (ABNORMAL) Vitamin B12 (06/22/2024 6:36 AM EDT) [facility] Vitamin B-12 1,115(H) 250 - 900 pcg/mL LAB CHEMISTRY METHOD 06/22/2024 9:55 AM [facility] Blood Venous blood specimen / Unknown Venipuncture / Unknown 06/22/2024 6:36 AM EDT 06/22/2024 8:02 AM EDT us Enedelia Rdz MD LAB BLOOD ORDERABLES Fin al Result [facility] [address] [place] [address], * (ABNORMAL) Comprehensive metabolic panel (06/22/2024 6:36 [...] [facility] [address] [place] [address], * JOSE LUIS DEXA AXIAL SKELETON (01/04/2018 2:07 PM EDT) Anatomical Region Laterality Modality Mammography 01/04/2018 12:5 7 PM EDT Narrative 01/04/2018 2:07 PM EDT [facility] Diagnostic Imaging Department [address] [place] [id number] Patient: ??BONNIE ZAMBRANO ?/Age/Sex: 1950 67 - F Unit#: ??[id number] ? Location/Status: ??SPDIMAM/REG CLI ? Mnemonic/Ordering Site: ??MAMDEXAAX/SPMAM Ordering Physician: ??JEANNE KILLIAN MD [facility] Dexa Axial Skeleton - 01/04/18 - [...] probability of hip fracture of 7.0%. Code 13597 Dictating Physician: ??PEE KILGORE MD Electronically Signed by: ??PEE KILGORE MD Dic Date/Time: ??01/04/18 1404 Sign date/Time: ??01/04/18 1403 Procedure Note Pee Kilgore MD - 03/02/2022 [facility] Diagnostic Imaging Department [address] [place] [address] Patient: BONNIE ZAMBRANO Hazel ThomasB./Age/Sex: 1950 - 67 - F Unit#: [id number] Location/Status: [facility] Ordering Physician: JEANNE KILLIAN MD Jose [...] density of the femurs bilaterally is 0.745 gm/[id number] is 74% of that of young normals [...] probability of hip fracture of 7.0%. Code 65555 Dictating Physician: PEE KILGORE MD Electronically Signed by: PEE KILGORE MD Dic Date/Time: 01/04/18 1404 Sign date/Time: 01/04/[address] [facility] BI PROCEDURES Final Result from Last 3 Months or Most Recently Relevant to Health Maintenance Insurance MEDICARE [facility] Care Teams Flight Physician Relationship Specialty Start Date End Date Enedelia Rdz MD [address] [place] [address] PCP - General Family Medicine 06/22/24
--- OUTSIDE RECORDS SUMMARY | 2024-07-24 11:33 | XMS_ITS | Encounter Summary ---
Author Organization [facility] Address [address] [place] [address] Care Team Providers Care Certified Medical Dosimetrist Name Role Phone Enedelia Rdz MD Primary Care Provider + Encounter Details Date Type Department Care Team (Late st Contact Info) Description 07/06/2024 Lab Requisition [facility] - Main Lab 299 [facility] [place] [address] Enedelia Rdz MD [address] [place] [phone] Chronic kidney disease, unspecified; Gastro-esophageal reflux disease [...] unspecified documented in this encounter Care Teams Certified Medical Dosimetrist Relationship Specialty Start Date End Date Enedelia Rdz MD [address] [place] [address] PCP - General Family Medicine 06/22/24 documented as of this encounter
== END 2024-07-24 09:39 | disposition home or self-care (01) ==
LOC: HO.XRAY 09:38
PROVIDERS: PCP Internal Medicine; Visit Provider Internal Medicine
DX: J44.9 Chronic obstructive pulmonary disease, unspecified (principal); J18.9 Pneumonia, unspecified organism; R91.1 Solitary pulmonary nodule
CPT/HCPCS: 71046; 99212

== ENCOUNTER → 2024-07-24 10:31 | Outpatient (BNV) | payer MEDICARE, SELFPAY | PROVIDERS: PCP Internal Medicine; Visit Provider Radiology Diagnostic Radiology | DX: J18.9 Pneumonia, unspecified organism (principal) | CPT/HCPCS: 71046 ==

== ENCOUNTER 2024-07-27 13:53 | Outpatient (AMB) | payer MEDICARE, SELFPAY ==
--- OUTSIDE RECORDS SUMMARY | 2024-07-27 13:56 | XMS_ITS | Data Portability ---
Author Organization [facility]INI Mckenna [facility] [address] Address [address] [place] [address] Care Team Providers Care Space Control Agent Name Role Phone SARANATElizabethLUCILLE Primary Care Provider Assessment No assessment recorded. Plan of Treatment Reminders Order Date Submit Date Provider Last Modified By Organization Details Last Modified Time Details Appointments None recorded. Lab None recorded. Referral None recorded. Procedures None recorded. Surgeries None recorded. Imaging None recorded. Medication Orders doxycycline hyclate 100 mg tablet 2022 023 [facility] #[id number], [address], [place], [phone], 3 11:56:50 benzonatate 200 mg capsule 2022 023 [id number], [address], [place], [phone], 3 11:56:50 Patient TargetsNo targets recorded. Patient Instructions Encounter Date Encounter Id Patient Instructions Last Modified By Organization Details Last Modified Time 09/11/2022 [id number] cough: care instructions [email or web address] Not available 09/11/2022 11:56:39 You are being [...] or lung pathology. Thank you for using [employer] today - please don't hesitate to contact up or return to see if you have any questions or concerns. [email or web address] Not available 09/11/2022 11:55:42 Reason for Referral None Reported. 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 Medical Equipment None Reported. Allergies Allergen ID Allergen Name Allergen Category Reaction Reaction Severity Criticality Documentation Date Start Date Code Code System Note Provider Name and Address Organization Details Recorded Time 189819 Compazine medicatio n Not available Not available Not available 09/11/2022 79513 6 RxNorm Allie Galeana null, PA - [facility] 3 11:19:10 453435 Fosamax medicatio n Not available Not available Not available 09/11/2022 60188 5 RxNorm Allie Galeana null, PA - [facility] 3 11:19:22 442732 Cipro medicatio n Not available Not available Not available 09/11/2022 79761 3 RxNorm Allie Galeana null, PA - [facility] 3 11:19:29 161952 Ceftin medicatio n Not available Not available Not available 09/11/2022 60004 6 RxNorm Allie Galeana null, PA - [...] Updated DateTime 3 160.02 cm 29.8 kg/m2 07249.5 2 g 5 20 /min 96 % 96 % 65 /min 98.5 [degF] 164 mm[Hg] 88 mm[Hg] Alliegautam Rangelellie PA - [facility] 3 11:27:38 Social History Question Answer Notes LastModified by Minutta Details LastModified Time Tobacco Smoking Status Never Smoker Allie richter, PA - [facility] 09/11/2022 11:25:16 Have You Recently Traveled Abroad? No Information not available 09/11/2022 Sex: Unknown Functional Status Question Answer Note LastModified by Minutta Details LastModified Time Do you use any [...] SNOMED-CT Code Diagnosis ICD10 Code Diagnosis Note [id number] [address] [address] [place] [address] 01/12/2015 09:01:28 01/12/2015 09:34:14 [id number] [facility] [address] [address] [place] [address] 09/11/2022 11:07:38 09/11/2022 11:57:33 Acute sinusitis 63081093 J01.90 Cough 20700665 R05.9 History of Chronic Bronchitis . Hypertensive disorder 38 502708 I10 Your blood pressure was elevated today [...] Member ID Guarantor Name 09/13/2022 2 [place] [facility] ([facility] [id number] Benny Fofana [id number] Nayeli Fofana 09/13/2022 2 [place] Nayeli Fofana [id number] Nayelimarla Clayuch 09/11/2022 2 [place] Nayeli Fofana [id number] Nayelimarla Fofana 09/11/2022 1 [place] [employer] Nayeli Fofana [id number] Nayeli Fofana Notes Date Note Type [...] ISBELL [address] [place], [address], PA - [facility] 09/11/2022 13:31:17 OBGyn Episode No OBEpisode recorded.
[2024-07-27 13:57] VITALS: BP 124/62; PULSE 71; BMI 27.5
--- NOTE | 2024-07-27 13:57 | A.OFFVIS_ITS ---
Vital Signs 07/27/24 13:57 Height 5 ft 3 in Weight 155 lb 3.287 oz BMI 27.5 BP 124/62 Blood Pressure Location Lt brachial Position Sitting Pulse 71 Pulse Source Pulse Oximeter Intake Visit Reasons: Follow up- Cardiac Cath Intake Note: f/up-cath Rural Mail Carrier Required: No Accompanied by: Daughter Allergies cefotetan Allergy (Unknown, Verified 07/24/24 10:40) unknown cefuroxime [From Ceftin] Allergy (Unknown, Verified 07/24/24 10:40) Unknown ciprofloxacin [Cipro] Allergy (Unknown, Verified 07/24/24 10:40) unknown latex Allergy (Unknown, Verified 07/24/24 10:40) Unknown moxifloxacin [From Avelox] Allergy (Unknown, Verified 07/24/24 10:40) Unknown prochlorperazine [From Compazine] Allergy (Unknown, Verified 07/24/24 10:40) Unknown alendronate sodium Adverse Reaction (Intermediate, Verified 07/24/24 10:40) Stomach Upset amlodipine Adverse Reaction (Uncoded 07/24/24 10:40) Abdominal Pain Medication List - Last Reconciled 07/27/24 by Justin Shields NP alendronate 70 mg PO QWEEK aspirin 81 mg PO DAILY atorvastatin 40 mg PO DAILY cholecalciferol (vitamin D3) (Vitamin D3) 25 mcg PO DAILY fluticasone furoate-vilanterol 200-25 mcg/dose (Breo Ellipta) 1 inh inhalation DAILY furosemide 20 mg PO DAILY lisinopril 1/2 orally daily; multivitamin 1 tab PO DAILY omeprazole 40 mg PO DAILY@0630 propranolol 20 mg PO BID sertraline 50 mg PO DAILY spironolactone 25 mg (1/2 x 50 mg) PO DAILY HPI Comments Details: This is a 73-year-old female patient accompanied by her daughter who comes for a hospital discharge follow-up. Patient with a history of COPD, bladder cancer, breast cancer, hypertension, and was recently in the hospital for acute hypoxemic respiratory failure related to flu infection. During this time, she also had some elevated troponin levels for which patient was treated with IV heparin, aspirin, and statin therapy. And patient was subsequently transferred out to [facility] for cardiac catheterization. Her her stay was further complicated by multifocal pneumonia requiring IV antibiotic therapy. Patient was then discharged to a rehab facility where she was successfully weaned off supplemental oxygen. Today, the patient reports feeling well overall and denies any cardiac symptoms including exertional chest pain, shortness of breath, palpitations, dizziness, orthopnea, PND, leg edema, presyncope, or syncope. Patient states she is working with PT at home through [facility]. Patient is affirming full compliance with her prescribed medications. [facility] Medical History (HFpEF) heart failure with preserved ejection fraction Cirrhosis Bladder carcinoma Osteoporosis Annual physical exam Restrictive lung disease Pulmonary nodule Allergic rhinitis Atypical ductal hyperplasia of breast COPD (chronic obstructive pulmonary disease) Thrombocytopenia Aortic valve sclerosis Breast CA Depression Essential hypertension Portal hypertension Surgical History H/O colonoscopy History of esophagogastroduodenoscopy (EGD) History of surgery History of inguinal hernia repair Hx of cholecystectomy Family History Father No problems noted. Mother Colon cancer Sister Breast cancer Social History Household Members: None Household Members Other:: lives alone Housing: House Do you presently have visiting nurse or other home services: No Alcohol intake: current Alcohol intake frequency: holidays/special occasions only Patient Tobacco Use Status: Never used Tobacco e-Cigarette/Vaping Use: Never Used Second Hand Smoke Exposure: No service: No Current occupational status: retired Cognitive needs: No Hearing needs: No Vision needs: Yes Review of Systems Const Denies chills, Denies fatigue, Denies fever(s), Denies frequent falls, Denies weakness, Denies weight gain and Denies weight loss ENT Denies dizziness Card Denies chest pain, Denies leg edema, Denies lightheadedness, Denies palpitations, Reports dyspnea and Reports dyspnea on exertion Resp Denies cough, Reports dyspnea and Reports dyspnea on exertion GI Denies hematochezia Musc Denies abnormal gait, Denies muscle weakness, Denies numbness, Denies radiating pain into limb and Denies tingling Neuro Denies abnormal gait, Denies dizziness, Denies frequent falls, Denies numbness, Denies tingling and Denies weakness Endo Denies fatigue and Denies palpitations Physical Exam Vital Signs: Last Vital Signs Pulse 71 07/27/24 13:57 BP 124/62 07/27/24 13:57 BMI result Body Mass Index 27.5 Const General: cooperative, healthy appearing, comfortable and no acute distress Orientation/consciousness: patient oriented x3 HEENT Head: Yes normal to inspection Neck Neck: Yes normal visual inspection, Yes trachea midline and Yes supple Chest Chest palpation & inspection: normal inspection of the chest Resp Effort & Inspection: normal respiratory effort Auscultation: clear to auscultation bilaterally, no crackles, no rales, no rhonchi and no wheezes Cardio Jugular venous distension: no JVD Palpation: normal PMI Rate: regular rate Rhythm: regular rhythm Heart sounds: S1 normal heart sound present, S2 normal heart sound present, no click, no gallops, Murmur heart sound present systolic at the right sternal border and no rubs Peripheral pulses: Peripheral pulses 2+ throughout GI Inspection: Yes normal to inspection Palpation (GI): Soft to palpation Auscultation: normal bowel sounds Skin General skin exam: no rashes or lesions noted Neuro General: patient oriented x3 Extrem General: Yes normal to inspection, No no pedal edema and No calf tenderness Psych Appearance: grossly normal Mental Status: mental status grossly normal Speech and movement: Normal speech and movement present Assessment & Plan Assessment & Plan (1) Non-ST elevation CO (NSTEMI): Code(s): I21.4 - Non-ST elevation (NSTEMI) myocardial infarction Category: Medical Plan: Patient had elevated troponins over 1400 for which she was treated with IV heparin, aspirin, and statin therapy. Patient underwent cardiac catheterization on 06/15/2024 that showed no significant coronary artery disease. Patient's NSTEMI type 2 related to influenza and pneumonia. On aspirin therapy, no reported signs of bleeding. Continue statin therapy with an LDL goal closer to 70. (2) Status post cardiac catheterization: Code(s): Z98.890 - Other specified postprocedural states Plan: Right wrist catheterization insertion site is completely healed. Patient is currently staying active with the physical therapy from [facility]. And plans to join cardiac rehab following this, for which patient already has an order. As above. (3) (HFpEF) heart failure with preserved ejection fraction: Code(s): I50.30 - Unspecified diastolic (congestive) heart failure Category: Medical Plan: 06/13/2024-patient's echo study showed LV systolic function with ejection fraction at 69%, with grade 2 diastolic dysfunction, with [id number] aortic valve stenosis and mild mitral valve regurgitation. Clinically euvolemic. Continue low-dose Lasix, spironolactone, propranolol, and lisinopril therapy. Discussed in detail signs and symptoms to watch for with heart failure. Advised low-salt diet, fluid restriction at 1.5-2 L daily. Advised monitoring daily weight. (4) Essential hypertension: Code(s): I10 - Essential (primary) hypertension Category: Medical Plan: Blood pressure today is well-controlled. Continue current regimen. Advised monitoring blood pressures at home and to keep a log of it. Ideally, blood pressure goal less than 130/80. (5) Hospital discharge follow-up: Code(s): Z09 - Encounter for follow-up examination after completed treatment for conditions other than malignant neoplasm Plan: As above. Advised heart healthy diet, low-salt diet, regular exercise, med compliance, and management of vascular risk factors. We will follow up in 6 months. In the interim, patient will call the office with any concerns or change in symptoms. This note was generated using voice recognition software. While every effort has been made to ensure accuracy and proper wall taper helper, there may be occasional errors that could affect the content or meaning of the described symptoms. Coding Level of Care Code Est Pt Level 4 (49419) Complex EM visit Add On G2211 Diagnoses Non-ST elevation CO (NSTEMI) I21.4 Status post cardiac catheterization Z98.890 (HFpEF) heart failure with preserved ejection fraction I50.30 Essential hypertension I10 Hospital discharge follow-up Z09 Time Spent (min) 32 Comment Time spent in reviewing the chart, test results, assessment, counseling and documentation.
--- OUTSIDE RECORDS SUMMARY | 2024-07-27 13:57 | XMS_ITS | Encounter Summary ---
Author Organization [facility] Address [address] [place] [address] Care Team Providers Care Feeder Catcher Tobacco Name Role Phone Enedelia Rdz MD Primary Care Provider + Encounter Details Date Type Department Care Team (Late st Contact Info) Description 06/30/2024 Lab Requisition [facility] - Main Lab [address] [facility] [place] [address] Enedelia Rdz MD [address] [phone] Chronic kidney disease, unspecified; Gastro-esophageal reflux disease [...] mmol/L LAB CHEMISTRY METHOD 07/02/2024 3:00 PM [facility] Potassium 4.5 3.5 - 5.5 mmol/L LAB CHEMISTRY METHOD 07/02/2024 3:00 PM [facility] Chloride 109 96 - 110 mmol/L LAB CHEMISTRY METHOD 07/02/2024 3:00 PM [facility] CO2 22 21 - 32 mmol/L LAB CHEMISTRY METHOD 07/02/2024 3:00 PM [facility] Anion Gap 9 3 - 11 LAB CHEMISTRY METHOD 07/02/2024 3:00 PM [facility] Glucose 78 70 - 100 mg/dL LAB CHEMISTRY METHOD 07/02/2024 3:00 PM [facility] BUN 22 5 - 25 mg/dL LAB CHEMISTRY METHOD 07/02/2024 3:00 PM [facility] Creatinine 0.96 0.50 - 1.10 mg/dL LAB CHEMISTRY METHOD 07/02/2024 3:00 PM [facility] eGFR 62 >=60 mL/min/1. 73m2 LAB CHEMISTRY METHOD 07/02/2024 3:00 PM [facility] Comment:Calculation based on the??Chronic Kidney Disease Epidemiology Collaboration (CKD-EPI) equation refit??without adjustment for race. BUN/Creatinine Ratio 22.9 LAB CHEMISTRY METHOD 07/02/2024 3:00 PM [facility] Calcium 8.8 8.5 - 10.5 mg/dL LAB CHEMISTRY METHOD 07/02/2024 3:00 PM [facility] Blood Venous blood specimen / Unknown Venipuncture / Unknown 07/02/2024 8:30 AM EDT 07/02/2024 11:09 AM EDT us Enedelia Rdz MD LAB BLOOD ORDERABLES Fin al Result [facility] [address] [place] [address], * (ABNORMAL) Complete blood count (07/02/2024 8:30 AM EDT) WBC 5.5 4.8 - 10.8 K/mcL LAB HEMETOLOGY METHOD 07/02/2024 11:38 AM EDT [facility] RBC 3.20(L) 3.80 - 4.80 M/mcL LAB HEM[facility]OLOG[facility] Hemoglobin 10.1(L) 11.5 - 16.0 g/dL LAB HEMETOLOGY METHOD 07/02/2024 11:38 AM [facility] Hematocrit 30.6(L) 35.0 - 47.0 % LAB HEMETOLOGY METHOD 07/02/2024 11:38 AM [facility] MCV 96.5 79.0 - 98.0 FL LAB HEMETOLOGY METHOD 07/02/2024 11:38 AM [facility] MCH 31.9 27.0 - 32.0 pcg LAB HEMETOLOGY METHOD 07/02/2024 11:38 AM [facility] MCHC 33.0 32.0 - 37.0 g/dL LAB HEMETOLOGY METHOD 07/02/2024 11:38 AM [facility] RDW 15.5(H) 11.0 - 15.0 % LAB HEMETOLOGY METHOD 07/02/2024 11:38 AM [facility] Platelets 150 130 - 400 K/mcL LAB HEMETOLOGY METHOD 07/02/2024 11:38 AM [facility] MPV 10.8 7.0 - 11.0 FL LAB HEMETOLOGY METHOD 07/02/2024 11:38 AM EDT [facility] NRBC 0.0 <1.0 % LAB HEMETOLOGY METHOD 07/02/2024 11:38 AM EDT [facility] NRBC Absolute 0.00 <0.10 K/mcL LAB HEMETOLOGY METHOD 07/02/2024 11:38 AM EDT [facility] Blood Venous blood specimen / Unknown Venipuncture / Unknown 07/02/2024 8:30 AM EDT 07/02/2024 11:09 AM EDT us Enedelia Rdz MD LAB BLOOD ORDERABLES Fin al Result [facility] [address] [place] [address], documented in this encounter Visit Diagnoses Diagnosis Chronic kidney disease, unspecified Gastro-esophageal reflux disease without esophagitis Essential (primary) hypertension Unspecified essential hypertension Thrombocytopenia, unspecified (CMS/HCC V24) Thrombocytopenia, unspecified documented in this encounter Care Teams Feeder Catcher Tobacco Relationship Specialty Start Date End Date Enedelia Rdz MD [address] [place] [address] PCP - General Family Medicine 06/22/24 documented as of this encounter
--- OUTSIDE RECORDS SUMMARY | 2024-07-27 13:57 | XMS_ITS | Encounter Summary ---
Author Organization [facility] Address [address] [place] [address] Care Team Providers Care Brokerage Branch Manager Name Role Phone Enedelia Rdz MD Primary Care Provider + Encounter Details Date Type Department Care Team (Late st Contact Info) Description 06/25/2024 Lab Requisition [facility] - Main Lab [address] [facility] [place] [address] Enedelia Rdz MD [address] [phone] Chronic kidney disease, unspecified; Gastro-esophageal reflux disease [...] mmol/L LAB CHEMISTRY METHOD 06/25/2024 3:01 PM [facility] Potassium 3.9 3.5 - 5.5 mmol/L LAB CHEMISTRY METHOD 06/25/2024 3:01 PM [facility] Chloride 107 96 - 110 mmol/L LAB CHEMISTRY METHOD 06/25/2024 3:01 PM [facility] CO2 27 21 - 32 mmol/L LAB CHEMISTRY METHOD 06/25/2024 3:01 PM [facility] Anion Gap 6 3 - 11 LAB CHEMISTRY METHOD 06/25/2024 3:01 PM [facility] Glucose 60(L) 70 - 100 mg/dL LAB CHEMISTRY METHOD 06/25/2024 3:01 PM [facility] BUN 25 5 - 25 mg/dL LAB CHEMISTRY METHOD 06/25/2024 3:01 PM [facility] Creatinine 0.74 0.50 - 1.10 mg/dL LAB CHEMISTRY METHOD 06/25/2024 3:01 PM [facility] eGFR 84 >=60 mL/min/1. 73m2 LAB CHEMISTRY METHOD 06/25/2024 3:01 PM [facility] Comment:Calculation based on the??Chronic Kidney Disease Epidemiology Collaboration (CKD-EPI) equation refit??without adjustment for race. BUN/Creatinine Ratio 33.8 LAB CHEMISTRY METHOD 06/25/2024 3:01 PM [facility] Calcium 8.8 8.5 - 10.5 mg/dL LAB CHEMISTRY METHOD 06/25/2024 3:01 PM [facility] Blood Venous blood specimen / Unknown Venipuncture / Unknown 06/25/2024 7:57 AM EDT 06/25/2024 11:58 AM EDT us Enedelia Rdz MD LAB BLOOD ORDERABLES Fin al Result [facility] [address] [place] [address], * (ABNORMAL) Complete blood count (06/25/2024 7:57 AM EDT) WBC 11.3(H) 4.8 - 10.8 K/mcL LAB HEMETOLOGY METHOD 06/25/2024 12:56 PM EDT [facility] RBC 3.20(L) 3.80 - 4.80 M/mcL LAB HEMETOLOGY METHOD 06/25/2024 12:56 PM EDT [facility] Hemoglobin 9.9(L) 11.5 - 16.0 g/dL LAB HEMETOLOGY METHOD 06/25/2024 12:56 PM EDT [facility] Hematocrit 30.7(L) 35.0 - 47.0 % LAB HEMETOLOGY METHOD 06/25/2024 12:56 PM EDT [facility] MCV 95.0 79.0 - 98.0 FL LAB HEMETOLOGY METHOD 06/25/2024 12:56 PM EDT [facility] MCH 30.7 27.0 - 32.0 pcg LAB HEMETOLOGY METHOD 06/25/2024 12:56 PM EDT [facility] MCHC 32.2 32.0 - 37.0 g/dL LAB HEMETOLOGY METHOD 06/25/2024 12:56 PM EDT [facility] RDW 14.1 11.0 - 15.0 % LAB HEMETOLOGY METHOD 06/25/2024 12:56 PM EDT [facility] Platelets 209 130 - 400 K/mcL LAB HEMETOLOGY METHOD 06/25/2024 12:56 PM EDT [facility] MPV 10.4 7.0 - 11.0 FL LAB HEMETOLOGY METHOD 06/25/2024 12:56 PM EDT [facility] NRBC 0.0 <1.0 % LAB HEMETOLOGY METHOD 06/25/2024 12:56 PM EDT [facility] NRBC Absolute 0.00 <0.10 K/mcL LAB HEMETOLOGY METHOD 06/25/2024 12:56 PM EDT [facility] Blood Venous blood specimen / Unknown Venipuncture / Unknown 06/25/2024 7:57 AM EDT 06/25/2024 11:58 AM EDT us Enedelia Rdz MD LAB BLOOD ORDERABLES Fin al Result [facility] [address] [place] [address], documented in this encounter Visit Diagnoses Diagnosis Chronic kidney disease, unspecified Gastro-esophageal reflux disease without esophagitis Essential (primary) hypertension Unspecified essential hypertension Thrombocytopenia, unspecified (CMS/HCC V24) Thrombocytopenia, unspecified documented in this encounter Care Teams Brokerage Branch Manager Relationship Specialty Start Date End Date Enedelia Rdz MD [address] [place] [address] PCP - General Family Medicine 06/22/24 documented as of this encounter
--- OUTSIDE RECORDS SUMMARY | 2024-07-27 13:57 | XMS_ITS | Encounter Summary ---
Author Organization [facility] Address [address] [place] [address] Care Team Providers Care Crime Scene Investigator Name Role Phone Enedelia Rdz MD Primary Care Provider + Encounter Details Date Type Department Care Team (Late st Contact Info) Description 07/06/2024 Lab Requisition [facility] - Main Lab [address] [facility] [place] [address] Enedelia Rdz MD [address] [place] [phone] Chronic kidney disease, unspecified; Gastro-esophageal reflux disease [...] unspecified documented in this encounter Care Teams Crime Scene Investigator Relationship Specialty Start Date End Date Enedelia Rdz MD [address] [place] [address] PCP - General Family Medicine 06/22/24 documented as of this encounter
--- OUTSIDE RECORDS SUMMARY | 2024-07-27 13:57 | XMS_ITS | Encounter Summary ---
Author Organization Address [address] [place] [address] Care Team Providers Care Party Chief Name Role Phone Enedelia Rdz MD Primary Care Provider + Encounter Details Date Type Department Care Team (Late st Contact Info) Description 06/22/2024 Lab Requisition [facility] - Main Lab [address] [facility] [place] [address] Enedelia Rdz MD [address] [address] Chronic kidney disease, unspecified; Essential [...] * (ABNORMAL) Magnesium (06/22/2024 6:36 AM EDT) [facility] Magnesium 1.5(L) 1.9 - 2.6 mg/dL LAB CHEMISTRY METHOD 06/22/2024 9:32 AM EDT [facility] Blood Venous blood specimen / Unknown Venipuncture / Unknown 06/22/2024 6:36 AM EDT 06/22/2024 8:02 AM EDT us Enedelia Rdz MD LAB BLOOD ORDERABLES Fin al Result [facility] [address] [place] [address], * (ABNORMAL) Vitamin B12 (06/22/2024 6:36 AM EDT) [facility] Vitamin B-12 1,115(H) 250 - 900 pcg/mL LAB CHEMISTRY METHOD 06/22/2024 9:55 AM EDT [facility] Blood Venous blood specimen / Unknown Venipuncture / Unknown 06/22/2024 6:36 AM EDT 06/22/2024 8:02 AM EDT Enedelia Rdz MD LAB BLOOD ORDERABLES Fin al Result [facility] [address] [place] [address], [place] [phone] * Folate (06/22/2024 6:36 AM EDT) [facility] Folate 9.5 2.8 - 17.0 ng/ml LAB CHEMISTRY METHOD 06/22/2024 9:55 AM EDT [facility] Blood Venous blood specimen / Unknown Venipuncture / Unknown 06/22/2024 6:36 AM EDT 06/22/2024 8:02 AM EDT Enedelia Rdz MD LAB BLOOD ORDERABLES Fin al Result [facility] [address] [place] [address], [place] [phone] * (ABNORMAL) Comprehensive metabolic panel (06/22/2024 6:36 AM EDT) [facility] Sodium 138 133 - 145 mmol/L LAB CHEMISTRY METHOD 06/22/2024 9:32 AM EDT [facility] Potassium 3.9 3.5 - 5.5 mmol/L LAB CHEMISTRY METHOD 06/22/2024 9:32 AM EDT [facility] Chloride 105 96 - 110 mmol/L LAB CHEMISTRY METHOD 06/22/2024 9:32 AM EDT [facility] CO2 28 21 - 32 mmol/L LAB CHEMISTRY METHOD 06/22/2024 9:32 AM [facility] Anion Gap 5 3 - 11 LAB CHEMISTRY METHOD 06/22/2024 9:32 AM [facility] Glucose 83 70 - 100 mg/dL LAB CHEMISTRY METHOD 06/22/2024 9:32 AM [facility] BUN 17 5 - 25 mg/dL LAB CHEMISTRY METHOD 06/22/2024 9:32 AM [facility] Creatinine 0.72 0.50 - 1.10 mg/dL LAB CHEMISTRY METHOD 06/22/2024 9:32 AM [facility] eGFR 87 >=60 mL/min/1. 73m2 LAB CHEMISTRY METHOD 06/22/2024 9:32 AM [facility] Comment:Calculation based on the??Chronic Kidney Disease Epidemiology Collaboration (CKD-EPI) equation refit??without adjustment for race. BUN/Creatinine Ratio 23.6 LAB CHEMISTRY METHOD 06/22/2024 9:32 AM [facility] Calcium 8.3(L) 8.5 - 10.5 mg/dL LAB CHEMISTRY METHOD 06/22/2024 9:32 AM [facility] AST (SGOT) 25 10 - 42 unit/L LAB CHEMISTRY METHOD 06/22/2024 9:32 AM [facility] ALT (SGPT) 16 10 - 60 unit/L LAB CHEMISTRY METHOD 06/22/2024 9:32 AM [facility] Alkaline Phosphatase 61 42 - 121 unit/L LAB CHEMISTRY METHOD 06/22/2024 9:32 AM [facility] Total Protein 5.2(L) 6.0 - 8.0 g/dL LAB CHEMISTRY METHOD 06/22/2024 9:32 AM [facility] Albumin 2.2(L) 3.2 - 5.0 g/dL LAB CHEMISTRY METHOD 06/22/2024 9:32 AM [facility] Total Bilirubin 1.7(H) 0.0 - 1.4 mg/dL LAB CHEMISTRY METHOD 06/22/2024 9:32 AM [facility] Blood Venous blood specimen / Unknown Venipuncture / Unknown 06/22/2024 6:36 AM EDT 06/22/2024 8:02 AM EDT us Enedelia Rdz MD LAB BLOOD ORDERABLES Fin al Result [facility] [address] [place] [address], * (ABNORMAL) Complete blood count (06/22/2024 6:36 AM EDT) WBC 5.6 4.8 - 10.8 K/mcL LAB HEMETOLOGY METHOD 06/22/2024 9:02 AM [facility] RBC 2.90(L) 3.80 - 4.80 M/mcL LAB HEMETOLOGY METHOD 06/22/2024 9:02 AM [facility] Hemoglobin 9.0(L) 11.5 - 16.0 g/dL LAB HEMETOLOGY METHOD 06/22/2024 9:02 AM [facility] Hematocrit 27.1(L) 35.0 - 47.0 % LAB HEMETOLOGY METHOD 06/22/2024 9:02 AM [facility] MCV 92.2 79.0 - 98.0 FL LAB HEMETOLOGY METHOD 06/22/2024 9:02 AM [facility] MCH 30.6 27.0 - 32.0 pcg LAB HEMETOLOGY METHOD 06/22/2024 9:02 AM [facility] MCHC 33.2 32.0 - 37.0 [...] Fin al Result [facility] [address] [place] [address], documented in this encounter Visit Diagnoses Diagnosis Chronic kidney disease, unspecified Essential (primary) hypertension Unspecified essential hypertension Chronic obstructive pulmonary disease, unspecified (CMS/HCC V24, CMS/HCC V28) Gastro-esophageal reflux disease without esophagitis Thrombocytopenia, unspecified (CMS/HCC V24) Thrombocytopenia, unspecified documented in this encounter Care Teams Party Chief Relationship Specialty Start Date End Date Enedelia Rdz MD [address] [place] [address] PCP - General Family Medicine 06/22/24 documented as of this encounter
--- OUTSIDE RECORDS SUMMARY | 2024-07-27 13:57 | XMS_ITS | Patient Health Record ---
Author Organization [facility] Address [address] [facility] [place] [address] Care Team Providers Care Weight Control Engineer Name Role Phone Jeanne Killian MD Primary Care Provider Unavaila ble Black, Tessa Unavailable [phone] Allergies Allergen (clinical drug ingredient) Drug/Non Drug [...] Problem Acquired hammer toe of right foot (6431224538546362) Other hammer toe(s) (acquired), right foot (M20.41) Active confirmed Problem Acquired hammer toe of left foot (2875322827825304) Other hammer toe(s) (acquired), left foot (M20.42) Active confirmed Problem [id number] Hallux valgus (acquired), left foot (M20.12) Active confirmed Problem [id number] Hallux valgus (acquired), right foot (M20.11) Active confirmed Problem Localized, primary osteoarthritis of the ankle and/or foot (383031373) Osteoarthritis of right ankle and foot (M19.071) Active confirmed Problem Localized, primary osteoarthritis of the ankle and/or foot (805609846) Osteoarthritis of left ankle and foot (M19.072) Active confirmed Plan Of Treatment No Information Insurance Providers Payer Name Payer Address Payer Phone Subscriber Number Group Number Insured Name Patient Relationship to Insured Coverage Start Date Coverage End Date Medicare National Govt [employer] [facility] [address] [place] [address] [id number] Nayeli Fofana Self - patient is the insured [employer] [facility] [address] [place] [address] [id number] Nayeli Fofana Self - patient is the insured Medical (General) History Medical History History ICD Code Arthritis asthma Gall bladder problems High blood pressure Kidney disease Liver disease Osteoporosis Measles Mumps Chicken pox Transfusions Congenitive Hepatic Fibrosis Surgical History Surgery Date(Month/Year) Breast Surgery x2 1978,2020 kidney surgery 2016 gall bladder 2013 hernia
--- OUTSIDE RECORDS SUMMARY | 2024-07-27 13:57 | XMS_ITS | Clinical Summary ---
Author Organization [address] Address [address] [place] [phone] Phone Care Team Providers Care Dental Hygiene Instructor Name Role Phone Enedelia Rdz MD Primary Care Provider + Encounters Date Type Department Care Team Description 07/06/2024 Lab Requisition [facility] [address] [place] [phone] Enedelia Rdz MD Chronic kidney disease, unspecified; Gastro-esophageal reflux disease without esophagitis; Essential (primary) hypertension; Thrombocytopenia, unspecified (CMS/HCC V24) 06/30/2024 Lab Requisition [facility] [address] [place] [phone] Enedelia Rdz MD Chronic kidney disease, unspecified; Gastro-esophageal reflux disease without esophagitis; Essential (primary) hypertension; Thrombocytopenia, unspecified (CMS/HCC V24) 06/25/2024 Lab Requisition [facility] [address] [place] [phone] Enedelia Rdz MD Chronic kidney disease, unspecified; Gastro-esophageal reflux disease without esophagitis; Essential (primary) hypertension; Thrombocytopenia, unspecified (CMS/HCC V24) 06/22/2024 Lab Requisition [facility] [address] [place] [phone] Enedelia Rdz MD Chronic kidney disease, unspecified; [...] LAB HEMETOLOGY METHOD 07/02/2024 11:38 AM EDT [facility] RBC 3.20(L) 3.80 - 4.80 M/mcL LAB HEMETOLOGY METHOD 07/02/2024 11:38 AM [facility] Hemoglobin 10.1(L) 11.5 - 16.0 g/dL LAB HEMETOLOGY METHOD 07/02/2024 11:38 AM [facility] Hematocrit 30.6(L) 35.0 - 47.0 % LAB HEMETOLOGY METHOD 07/02/2024 11:38 AM T [facility] MCV 96.5 79.0 - 98.0 FL LAB HEMETOLOGY METHOD 07/02/2024 11:38 AM [facility] MCH 31.9 27.0 - 32.0 pcg LAB HEMETOLOGY METHOD 07/02/2024 11:38 AM [facility] MCHC 33.0 32.0 - 37.0 g/dL LAB HEMETOLOGY METHOD 07/02/2024 11:38 AM [facility] RDW 15.5(H) 11.0 - 15.0 % LAB HEMETOLOGY METHOD 07/02/2024 11:38 AM [facility] Platelets 150 130 - 400 K/mcL LAB HEMETOLOGY METHOD 07/02/2024 11:38 AM [facility] MPV 10.8 7.0 - 11.0 FL LAB HEMETOLOGY METHOD 07/02/2024 11:38 AM [facility] NRBC 0.0 <1.0 % LAB HEMETOLOGY METHOD 07/02/2024 11:38 AM [facility] NRBC Absolute 0.00 <0.10 K/mcL LAB HEMETOLOGY METHOD 07/02/2024 11:38 AM [facility] Blood Venous blood specimen / Unknown Venipuncture / Unknown 07/02/2024 8:30 AM EDT 07/02/2024 11:09 AM EDT us Enedelia Rdz MD LAB BLOOD ORDERABLES Fin al Result [facility] [address] [place] [address], * Basic metabolic panel (07/02/2024 8:30 AM EDT) Only the most recent of2 resultswithin the time period is included. Sodium 140 133 - 145 mmol/L LAB CHEMISTRY METHOD 07/02/2024 3:00 PM [facility] Potassium 4.5 3.5 - 5.5 mmol/L LAB CHEMISTRY METHOD 07/02/2024 3:00 PM [facility] Chloride 109 96 - 110 mmol/L LAB CHEMISTRY METHOD 07/02/2024 3:00 PM [facility] CO2 22 21 - 32 mmol/L LAB CHEMISTRY METHOD 07/02/2024 3:00 PM [facility] Anion Gap 9 3 - 11 LAB CHEMISTRY METHOD 07/02/2024 3:00 PM [facility] Glucose 78 70 - 100 mg/dL LAB CHEMISTRY METHOD 07/02/2024 3:00 PM [facility] BUN 22 5 - 25 mg/dL LAB CHEMISTRY METHOD 07/02/2024 3:00 PM [facility] Creatinine 0.96 0.50 - 1.10 mg/dL LAB CHEMISTRY METHOD 07/02/2024 3:00 PM [facility] eGFR 62 >=60 mL/min/1. 73m2 LAB CHEMISTRY METHOD 07/02/2024 3:00 PM [facility] Comment:Calculation based on the??Chronic Kidney Disease Epidemiology Collaboration (CKD-EPI) equation refit??without adjustment for race. BUN/Creatinine Ratio 22.9 LAB CHEMISTRY METHOD 07/02/2024 3:00 PM [facility] Calcium 8.8 8.5 - 10.5 mg/dL LAB CHEMISTRY METHOD 07/02/2024 3:00 PM [facility] Blood Venous blood specimen / Unknown Venipuncture / Unknown 07/02/2024 8:30 AM EDT 07/02/2024 11:09 AM EDT Enedelia Rdz MD LAB BLOOD ORDERABLES Fin al Result Performing Organization Address [facility]/ZIP Co de Phone Number [facility] [address] [place] [address], * (ABNORMAL) Magnesium (06/22/2024 6:36 AM EDT) [facility] Magnesium 1.5(L) 1.9 - 2.6 mg/dL LAB CHEMISTRY METHOD 06/22/2024 9:32 AM EDT [facility] Blood Venous blood specimen / Unknown Venipuncture / Unknown 06/22/2024 6:36 AM EDT 06/22/2024 8:02 AM EDT Enedelia Rdz MD LAB BLOOD ORDERABLES Fin al Result Performing Organization Address [facility] de Phone Number [facility] [address] [place] [address], * Folate (06/22/2024 6:36 AM EDT) [facility] Folate 9.5 2.8 - 17.0 ng/ml LAB CHEMISTRY METHOD 06/22/2024 9:55 AM EDT [facility] Blood Venous blood specimen / Unknown Venipuncture / Unknown 06/22/2024 6:36 AM EDT 06/22/2024 8:02 AM EDT Enedelia Rdz MD LAB BLOOD ORDERABLES Fin al Result Performing Organization Address [facility]/ZIP Co de Phone Number [facility] [address] [place] [address], * (ABNORMAL) Vitamin B12 (06/22/2024 6:36 AM EDT) [facility] Vitamin B-12 1,115(H) 250 - 900 pcg/mL LAB CHEMISTRY METHOD 06/22/2024 9:55 AM [facility] Blood Venous blood specimen / Unknown Venipuncture / Unknown 06/22/2024 6:36 AM EDT 06/22/2024 8:02 AM EDT us Enedelia Rdz MD LAB BLOOD ORDERABLES Fin al Result [facility] [address] [place] [address], * (ABNORMAL) Comprehensive metabolic panel (06/22/2024 6:36 AM EDT) Sodium 138 133 - 145 mmol/L LAB CHEMISTRY METHOD 06/22/2024 9:32 AM [facility] Potassium 3.9 3.5 - 5.5 mmol/L LAB CHEMISTRY METHOD 06/22/2024 9:32 AM [facility] Chloride 105 96 - 110 mmol/L LAB CHEMISTRY METHOD 06/22/2024 9:32 AM [facility] CO2 28 21 - 32 mmol/L LAB CHEMISTRY METHOD 06/22/2024 9:32 AM [facility] Anion Gap 5 3 - 11 LAB CHEMISTRY METHOD 06/22/2024 9:32 AM [facility] Glucose 83 70 - 100 mg/dL LAB CHEMISTRY METHOD 06/22/2024 9:32 AM [facility] BUN 17 5 - 25 mg/dL LAB CHEMISTRY METHOD 06/22/2024 9:32 AM [facility] Creatinine 0.72 0.50 - 1.10 mg/dL LAB CHEMISTRY METHOD 06/22/2024 9:32 AM [facility] eGFR 87 >=60 mL/min/1. 73m2 LAB CHEMISTRY METHOD 06/22/2024 9:32 AM [facility] Comment:Calculation based on the??Chronic Kidney Disease Epidemiology Collaboration (CKD-EPI) equation refit??without adjustment for race. BUN/Creatinine Ratio 23.6 LAB CHEMISTRY METHOD 06/22/2024 9:32 AM [facility] Calcium 8.3(L) 8.5 - 10.5 mg/dL LAB CHEMISTRY METHOD 06/22/2024 9:32 AM [facility] AST (SGOT) 25 10 - 42 unit/L LAB CHEMISTRY METHOD 06/22/2024 9:32 AM [facility] ALT (SGPT) 16 10 - 60 unit/L LAB CHEMISTRY METHOD 06/22/2024 9:32 AM [facility] Alkaline Phosphatase 61 42 - 121 unit/L LAB CHEMISTRY METHOD 06/22/2024 9:32 AM [facility] Total Protein 5.2(L) 6.0 - 8.0 g/dL LAB CHEMISTRY METHOD 06/22/2024 9:32 AM [facility] Albumin 2.2(L) 3.2 - 5.0 g/dL LAB CHEMISTRY METHOD 06/22/2024 9:32 AM [facility] Total Bilirubin 1.7(H) 0.0 - 1.4 mg/dL LAB CHEMISTRY METHOD 06/22/2024 9:32 AM [facility] Blood Venous blood specimen / Unknown Venipuncture / Unknown 06/22/2024 6:36 AM EDT 06/22/2024 8:02 AM EDT us Enedelia Rdz MD LAB BLOOD ORDERABLES Fin al Result [facility] [address] [place] [address], * JOSE LUIS DEXA AXIAL SKELETON (01/04/2018 2:07 PM EDT) Anatomical Region Laterality Modality Mammography 01/04/2018 12:5 7 PM EDT Narrative 01/04/2018 2:07 PM EDT [facility] Diagnostic Imaging Department [address] [place] [id number] Patient: ??BONNIE ZAMBRANO ?/Age/Sex: 1950 67 - F Unit#: ??[id number] ? Location/Status: ??SPDIMAM/REG CLI ? Mnemonic/Ordering Site: ??MAMDEXAAX/SPMAM Ordering Physician: ??JEANNE KILLIAN MD [facility] [place] Dexa Axial Skeleton - 01/04/18 - 1321 [...] probability of hip fracture of 7.0%. Code 46600 Dictating Physician: ??PEE KIGLORE MD Electronically Signed by: ??PEE KILGORE MD Dic Date/Time: ??01/04/18 1404 Sign date/Time: ??01/04/18 1409 Procedure Note Pee Kilgore MD - 03/02/2022 [facility] Diagnostic Imaging Department [address] [place] [address] Patient: BONNIE ZAMBRANO Hazel ThomasB./Age/Sex: 1950 - 67 - F Unit#: [id number] Location/Status: [facility] Ordering Physician: EJANNE KILLIAN MD Jose Luis Dexa Axial Skeleton [...] density of the femurs bilaterally is 0.745 gm/dt2tecte is 74% of that of young normals [...] probability of hip fracture of 7.0%. Code 61313 Dictating Physician: PEE KILGORE MD Electronically Signed by: PEE KILGORE MD Dic Date/Time: 01/04/18 1404 Sign date/Time: 01/04/18 1407 Jeanne Killian MD [facility] [place] PROCEDURES Final Result from Last 3 Months or Most Recently Relevant to Health Maintenance Insurance MEDICARE [facility] Care Teams Dental Hygiene Instructor Relationship Specialty Start Date End Date Enedelia Rdz MD [address] [place] [address] PCP - General Family Medicine 06/22/24
== END 2024-07-27 14:21 | disposition home or self-care (01) ==
LOC: HO.HCS 13:54
PROVIDERS: PCP Internal Medicine
DX: I21.4 Non-ST elevation (NSTEMI) myocardial infarction (principal); Z98.890 Other specified postprocedural states; I50.30 Unspecified diastolic (congestive) heart failure; I10 Essential (primary) hypertension; Z09 Encounter for follow-up examination after completed treatment for conditions other than malignant neoplasm
CPT/HCPCS: 99214; G2211

== ENCOUNTER → 2024-07-27 13:53 | Outpatient (BNVA) | payer MEDICARE, SELFPAY | PROVIDERS: PCP Internal Medicine | DX: Z09 Encounter for follow-up examination after completed treatment for conditions other than malignant neoplasm (principal); I11.0 Hypertensive heart disease with heart failure; I50.30 Unspecified diastolic (congestive) heart failure; I21.4 Non-ST elevation (NSTEMI) myocardial infarction; Z98.890 Other specified postprocedural states | CPT/HCPCS: 99212 ==

== ENCOUNTER 2024-08-01 13:27 | Outpatient (AMB) | payer MEDICARE, SELFPAY ==
[2024-08-01 13:38] VITALS: BP 116/64; PULSE 71; RESP 18; O2SAT 96; BMI 27.3
--- NOTE | 2024-08-01 13:38 | MHC.PC.OV ---
Vital Signs 08/01/24 13:38 Height 5 ft 3 in Weight 154 lb BMI 27.3 BP 116/64 Blood Pressure Location Lt brachial Position Sitting Respiration 18 Pulse 71 Pulse Source Pulse Oximeter Pulse Oximetry (%) 96 Oxygen Delivery Method Room Air Intake Visit Reasons: 3 week follow up Intake Note: Pt is here today for 3 weeks follow up visit. Allergies cefotetan Allergy (Unknown, Verified 08/01/24 13:49) unknown cefuroxime [From Ceftin] Allergy (Unknown, Verified 08/01/24 13:49) Unknown ciprofloxacin [Cipro] Allergy (Unknown, Verified 08/01/24 13:49) unknown latex Allergy (Unknown, Verified 08/01/24 13:49) Unknown moxifloxacin [From Avelox] Allergy (Unknown, Verified 08/01/24 13:49) Unknown prochlorperazine [From Compazine] Allergy (Unknown, Verified 08/01/24 13:49) Unknown alendronate sodium Adverse Reaction (Intermediate, Verified 08/01/24 13:49) Stomach Upset amlodipine Adverse Reaction (Uncoded 08/01/24 13:49) Abdominal Pain Medication List - Last Reconciled 08/01/24 by Jeanne Killian MD alendronate 70 mg PO QWEEK aspirin 81 mg PO DAILY atorvastatin 40 mg PO DAILY cholecalciferol (vitamin D3) (Vitamin D3) 25 mcg PO DAILY fluticasone furoate-vilanterol 200-25 mcg/dose (Breo Ellipta) 1 inh inhalation DAILY furosemide 20 mg PO DAILY lisinopril 1/2 orally daily; multivitamin 1 tab PO DAILY omeprazole 40 mg PO DAILY@0630 propranolol 20 mg PO BID sertraline 50 mg PO DAILY spironolactone 25 mg (1/2 x 50 mg) PO DAILY Tobacco use date assessed: 08/01/24 Dental Screening Dental Screen Date: 08/01/24 Did you have a dental visit in the last 12 months?: Yes Did you have a dental problem in the last 6 months where you did not have access to dental care?: No Was dental information given to patient?: Patient has dentist HPI 3 week follow up HPI Details PATIENT PRESENTS FOR THE FOLLOW-UP OF COPD HYPERTENSION HEART FAILURE WITH PRESERVED EJECTION FRACTION CHRONIC ANXIETY AND DEPRESSION. Patient has been physically active walking daily and denies exercise induced chest pain shortness or breath PND orthopnea [facility] Medical History (Updated 08/01/24 @ 14:26 by Jeanne Killian MD) (HFpEF) heart failure with preserved ejection fraction Cirrhosis Bladder carcinoma Osteoporosis Annual physical exam Restrictive lung disease Pulmonary nodule Allergic rhinitis Atypical ductal hyperplasia of breast COPD (chronic obstructive pulmonary disease) Thrombocytopenia Aortic valve sclerosis Breast CA Depression Essential hypertension Portal hypertension Surgical History H/O colonoscopy History of esophagogastroduodenoscopy (EGD) History of surgery History of inguinal hernia repair Hx of cholecystectomy Family History Father No problems noted. Mother Colon cancer Sister Breast cancer Social History Household Members: None Household Members Other:: lives alone Housing: House Do you presently have visiting nurse or other home services: No Alcohol intake: current Alcohol intake frequency: holidays/special occasions only Patient Tobacco Use Status: Never used Tobacco e-Cigarette/Vaping Use: Never Used Second Hand Smoke Exposure: No service: No Current occupational status: retired Cognitive needs: No Hearing needs: No Vision needs: Yes Questionnaire Thrive Questionnaire Date Thrive assessed: 03/14/24 I am a: Patient What is your living situation today?: I have a steady place to live Within the past 12 months, did the food you bought not last and you didn't have the money to get more?: I choose not to answer this question Within the past 12 months, did you worry whether your food would run out before you got money to buy more?: I choose not to answer this question Do you have trouble paying for medicines?: Yes Do you have trouble getting transportation to medical appointments?: No Do you have trouble paying your heating and electricity bill?: No Do you have trouble taking care of your child, family member or friend?: No Do you have trouble with day-to-day activities such as bathing, preparing meals, shopping, managing finances, etc.?: No Are you currently unemployed and looking for a job?: No Are you interested in more education?: No Please select the resources that you would like help with: Paying for medicine Currently or been in a relationship where the following occur: I choose not to answer THRIVE Score: 0 ELENA-7 AMB Questionnaire ELENA-7 Date ELENA - 7 assessed: 03/21/24 Source: Developed by DrsEm Mcelroy, Rula Pantoja, Ranulfo Kirkpatrick and colleagues, with an educational laly from [employer]. Review of Systems Const All systems reviewed & are unremarkable except as noted in HPI and below Eyes Reports no additional complaints ENT Reports no additional complaints Card Reports no additional complaints Resp Reports no additional complaints GI Reports no additional complaints Reports no additional complaints Physical exam (Primary Care) Vital Signs: Last Vital Signs Pulse 71 08/01/24 13:38 Resp 18 08/01/24 13:38 BP 116/64 08/01/24 13:38 Pulse Ox 96 08/01/24 13:38 Oxygen Delivery Method Room Air 08/01/24 13:38 BMI result Body Mass Index 27.3 Tobacco/Smoking Status: Tobacco use Status Tobacco use date assessed 08/01/24 08/01/24 13:52 Patient Tobacco Use Status Never used Tobacco 08/01/24 13:38 e-Cigarette/Vaping Use Never Used 08/01/24 13:38 Thrive Assessment: Date of Thrive Assessment Date Thrive assessed 03/14/24 08/01/24 13:38 Currently or been in a relationship where the following occur: I choose not to answer Const General: no acute distress HENMT Head: Yes normal to inspection Resp Effort & Inspection: normal respiratory effort Auscultation: diminished lung sounds Cardio Rhythm: regular rhythm Heart sounds: S1 normal heart sound present and S2 normal heart sound present GI Inspection: Yes normal to inspection Palpation (GI): Soft to palpation Percussion: Yes normal to percussion Extrem Other: 1+ pitting edema bilaterally Coding Level of Care Code Est Pt Level 4 (80246) Complex EM visit Add On G2211 Diagnoses (HFpEF) heart failure with preserved ejection fraction I50.30 Bladder carcinoma C67.9 Portal hypertension K76.6 COPD (chronic obstructive pulmonary disease) J44.9 Assessment & Plan Assessment & Plan (1) (HFpEF) heart failure with preserved ejection fraction: Comment: Echo 06/2024 EF 69%. Mild septal asymmetric hypertrophy, ezqg-jj-tirsokig aortic stenosis, cardiac catheterization not significant coronary artery disease 06/2024 Code(s): I50.30 - Unspecified diastolic (congestive) heart failure Category: Medical Plan: Continue current medications (2) Bladder carcinoma: Comment: f/u annually with Urology, Abd/pelvic CT 05/2023 [facility], s/p R nephrectomy, L kidney benign cysts, stable splenomegaly, no ascites Code(s): C67.9 - Malignant neoplasm of bladder, unspecified Category: Medical Plan: Follow-up with Urology (3) Portal hypertension: Comment: Follow-up with GI with serial EGD, annual US no liver masses, splenomegaly 06/2023 Code(s): K76.6 - Portal hypertension Category: Medical Plan: Follow-up with GI continue current medications (4) COPD (chronic obstructive pulmonary disease): Comment: Has moderately severe chronic obstructive pulmonary disease . SHE HAS JUST RECOVERED FROM RECENT PNEUMONIA. COPD SEEMS TO BE WELL CONTROLLED AND LUNGS ARE CLEAR TODAY. Code(s): J44.9 - Chronic obstructive pulmonary disease, unspecified Category: Medical Plan: Controlled on Breo follow-up with pulmonology Orders: Orders Comprehensive [place]. Panel Fast 3 Months I10 - Essential (primary) hypertension, I50.30 - Unspecified diastolic (congestive) heart failure, J44.9 - Chronic obstructive pulmonary disease, unspecified, K76.6 - Portal hypertension Lipid Panel 3 Months I10 - Essential (primary) hypertension, I50.30 - Unspecified diastolic (congestive) heart failure, J44.9 - Chronic obstructive pulmonary disease, unspecified, K76.6 - Portal hypertension Complete Blood Count Auto Diff 3 Months I10 - Essential (primary) hypertension, I50.30 - Unspecified diastolic (congestive) heart failure, J44.9 - Chronic obstructive pulmonary disease, unspecified, K76.6 - Portal hypertension TSH reflex Free T4 3 Months I10 - Essential (primary) hypertension, I50.30 - Unspecified diastolic (congestive) heart failure, J44.9 - Chronic obstructive pulmonary disease, unspecified, K76.6 - Portal hypertension B Type Natriuretic Peptide 3 Months I10 - Essential (primary) hypertension, I50.30 - Unspecified diastolic (congestive) heart failure, J44.9 - Chronic obstructive pulmonary disease, unspecified, K76.6 - Portal hypertension
--- OUTSIDE RECORDS SUMMARY | 2024-08-01 14:02 | XMS_ITS | Data Portability ---
Author Organization [facility] [address] Address [address] [place] [address] Care Team Providers Care Sand Mixer Machine Name Role Phone SARANATElizabethLUCILLE Primary Care Provider Assessment No assessment recorded. Plan of Treatment Reminders Order Date Submit Date Provider Last Modified By Organization Details Last Modified Time Details Appointments None recorded. Lab None recorded. Referral None recorded. Procedures None recorded. Surgeries None recorded. Imaging None recorded. Medication Orders doxycycline hyclate 100 mg tablet 2022 023 [id number], [address], [place], [id number], 3 11:56:50 benzonatate 200 mg capsule 2022 023 [id number], [address], [place], [id number], 3 11:56:50 Patient TargetsNo targets recorded. Patient Instructions Encounter Date Encounter Id Patient Instructions Last Modified By Organization Details Last Modified Time 09/11/2022 [id number] cough: care instructions [email or web address] Not available 09/11/2022 11:56:39 You are being [...] or lung pathology. Thank you for using [facility] today - please don't hesitate to contact up or return to see if you have any questions or concerns. [email or web address] Not available 09/11/2022 11:55:42 Reason for Referral None Reported. 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 Medical Equipment None Reported. Allergies Allergen ID Allergen Name Allergen Category Reaction Reaction Severity Criticality Documentation Date Start Date Code Code System Note Provider Name and Address Organization Details Recorded Time 148126 Compazine medicatio n Not available Not available Not available 09/11/2022 63116 6 RxNorm Allie Galeana null, PA - [facility] 3 11:19:10 791148 Fosamax medicatio n Not available Not available Not available 09/11/2022 72701 5 RxNorm Allie Galeana null, PA - [facility] 3 11:19:22 025645 Cipro medicatio n Not available Not available Not available 09/11/2022 14424 3 RxNorm Allie Galeana null, PA - [facility] 3 11:19:29 824272 Ceftin medicatio n Not available Not available Not available 09/11/2022 86191 6 RxNorm Allie Galeana null, PA - [...] Updated DateTime 3 160.02 cm 29.8 kg/m2 47047.5 2 g 20 /min 96 % 96 [...] Functional Status Question Answer Note LastModified by Organizat ion Details LastModified Time Do you use any [...] Influenza, adjuvanted, quadrivalent, PF 1 completed Allie richter, PA - [facility] 09/11/2022 11:17:20 COVID-19, [...] or 25mcg/0.25 mL dose 2 completed Allie Rangelfette null, PA - [facility] 09/11/2022 11:17:20 [...] SNOMED-CT Code Diagnosis ICD10 Code Diagnosis Note [id number] [address] [facility] [address] [place] [address] 01/12/2015 09:01:28 01/12/2015 09:34:14 [id number] [facility] [address] [place] [address] 09/11/2022 11:07:38 09/11/2022 11:57:33 Acute sinusitis 04600172 J01.90 Cough 74231125 R05.9 History of Chronic Bronchitis . Hypertensive disorder 38 084792 I10 Your blood pressure was elevated today [...] Member ID Guarantor Name 09/13/2022 2 [place] [facility] ([facility] [id number] Benny Fofana [id number] Nayeli Oliva Czuchra 09/13/2022 2 [place] Nayeli Oliva Czuchra [id number] Nayeli E Czuchra 09/11/2022 2 [place] Nayeli Hazel Czuchra [id number] Nayeli E Czuchra 09/11/2022 1 [place] [employer] Nayeli E Czuchra [id number] Nayeli E Czuchra Notes Date Note Type Note Provider Name [...] GINI ISBELL [address] [place], [address], [place] - [facility] 09/11/2022 13:31:17 OBGyn Episode No OBEpisode recorded.
--- OUTSIDE RECORDS SUMMARY | 2024-08-01 14:02 | XMS_ITS | Patient Health Record ---
[facility] Address [address] [place] [address] Care Team Providers Care Video Camera Operator Name Role Phone Jeanne Killian MD Primary Care Provider Unavaila ble Black, Tessa Unavailable [phone] Allergies Allergen (clinical drug ingredient) Drug/Non Drug [...] Problem Acquired hammer toe of right foot (7658198461965019) Other hammer toe(s) (acquired), right foot (M20.41) Active confirmed Problem Acquired hammer toe of left foot (0063793610389030) Other hammer toe(s) (acquired), left foot (M20.42) Active confirmed Problem 188223471833084 Hallux valgus (acquired), left foot (M20.12) Active confirmed Problem 418848423712168 Hallux valgus (acquired), right foot (M20.11) Active confirmed Problem Localized, primary osteoarthritis of the ankle and/or foot (453956293) Osteoarthritis of right ankle and foot (M19.071) Active confirmed Problem Localized, primary osteoarthritis of the ankle and/or foot (481951786) Osteoarthritis of left ankle and foot (M19.072) Active confirmed Plan Of Treatment No Information Insurance Providers Payer Name Payer Address Payer Phone Subscriber Number Group Number Insured Name Patient Relationship to Insured Coverage Start Date Coverage End Date Medicare National Govt ProFounder [facility] [address] [facility] [place] [address] [id number] Nayeli Fofana Self - patient is the insured Med[employer] Blue [facility] [address] [place] [address] [id number] Nayeli Fofana Self - patient is the insured Medical (General) History Medical History History ICD Code Arthritis asthma Gall bladder problems High blood pressure Kidney disease Liver disease Osteoporosis Measles Mumps Chicken pox Transfusions Congenitive Hepatic Fibrosis Surgical History Surgery Date(Month/Year) Breast Surgery x2 1978,2020 kidney surgery 2016 gall bladder 2013 hernia
--- OUTSIDE RECORDS SUMMARY | 2024-08-01 14:02 | XMS_ITS | Encounter Summary ---
Author Organization [facility] Address [address] [place] [address] Care Team Providers Care Turnstile Attendant Name Role Phone Enedelia Rdz MD Primary Care Provider + Encounter Details Date Type Department Care Team (Late st Contact Info) Description 07/06/2024 Lab Requisition [facility] - Main Lab [address] [facility] [place] [address] Enedelia Rdz MD [address] [place] [address] [phone] Chronic kidney disease, unspecified; Gastro-esophageal reflux disease [...] unspecified documented in this encounter Care Teams Turnstile Attendant Relationship Specialty Start Date End Date Enedelia Rdz MD [address] [place] [address] PCP - General Family Medicine 06/22/24 documented as of this encounter
--- OUTSIDE RECORDS SUMMARY | 2024-08-01 14:02 | XMS_ITS | Encounter Summary ---
Author Organization [facility] Address [address] [place] [address] Care Team Providers Care Miscellaneous Machine Operator Name Role Phone Enedelia Rdz MD Primary Care Provider + Encounter Details Date Type Department Care Team (Late st Contact Info) Description 06/25/2024 Lab Requisition [facility] - Main Lab [address] [facility] [place] [address] Enedelia Rdz MD [address] [phone] Chronic kidney disease, unspecified; Gastro-esophageal reflux disease [...] mmol/L LAB CHEMISTRY METHOD 06/25/2024 3:01 PM [facility] Potassium 3.9 3.5 - 5.5 mmol/L LAB CHEMISTRY METHOD 06/25/2024 3:01 PM [facility] Chloride 107 96 - 110 mmol/L LAB CHEMISTRY METHOD 06/25/2024 3:01 PM [facility] CO2 27 21 - 32 mmol/L LAB CHEMISTRY METHOD 06/25/2024 3:01 PM [facility] Anion Gap 6 3 - 11 LAB CHEMISTRY METHOD 06/25/2024 3:01 PM [facility] Glucose 60(L) 70 - 100 mg/dL LAB CHEMISTRY METHOD 06/25/2024 3:01 PM [facility] BUN 25 5 - 25 mg/dL LAB CHEMISTRY METHOD 06/25/2024 3:01 PM [facility] Creatinine 0.74 0.50 - 1.10 mg/dL LAB CHEMISTRY METHOD 06/25/2024 3:01 PM [facility] eGFR 84 >=60 mL/min/1. 73m2 LAB CHEMISTRY METHOD 06/25/2024 3:01 PM [facility] Comment:Calculation based on the??Chronic Kidney Disease Epidemiology Collaboration (CKD-EPI) equation refit??without adjustment for race. BUN/Creatinine Ratio 33.8 LAB CHEMISTRY METHOD 06/25/2024 3:01 PM [facility] Calcium 8.8 8.5 - 10.5 mg/dL LAB CHEMISTRY METHOD 06/25/2024 3:01 PM [facility] Blood Venous blood specimen / Unknown Venipuncture / Unknown 06/25/2024 7:57 AM EDT 06/25/2024 11:58 AM EDT us Enedelia Rdz MD LAB BLOOD ORDERABLES Fin al Result [facility] [address] [place] [address], * (ABNORMAL) Complete blood count (06/25/2024 7:57 AM EDT) WBC 11.3(H) 4.8 - 10.8 K/mcL LAB HEMETOLOGY METHOD 06/25/2024 12:56 PM EDT [facility] RBC 3.20(L) 3.80 - 4.80 M/mcL LAB HEMETOLOGY METHOD 06/25/2024 12:56 PM EDT [facility] Hemoglobin 9.9(L) 11.5 - 16.0 g/dL LAB HEMETOLOGY METHOD 06/25/2024 12:56 PM EDT [facility] Hematocrit 30.7(L) 35.0 - 47.0 % LAB HEMETOLOGY METHOD 06/25/2024 12:56 PM EDT [facility] MCV 95.0 79.0 - 98.0 FL LAB HEMETOLOGY METHOD 06/25/2024 12:56 PM EDT [facility] MCH 30.7 27.0 - 32.0 pcg LAB HEMETOLOGY METHOD 06/25/2024 12:56 PM EDT [facility] MCHC 32.2 32.0 - 37.0 g/dL LAB HEMETOLOGY METHOD 06/25/2024 12:56 PM EDT [facility] RDW 14.1 11.0 - 15.0 % LAB HEMETOLOGY METHOD 06/25/2024 12:56 PM EDT [facility] Platelets 209 130 - 400 K/mcL LAB HEMETOLOGY METHOD 06/25/2024 12:56 PM EDT [facility] MPV 10.4 7.0 - 11.0 FL LAB HEMETOLOGY METHOD 06/25/2024 12:56 PM EDT [facility] NRBC 0.0 <1.0 % LAB HEMETOLOGY METHOD 06/25/2024 12:56 PM EDT [facility] NRBC Absolute 0.00 <0.10 K/mcL LAB HEMETOLOGY METHOD 06/25/2024 12:56 PM EDT [facility] Blood Venous blood specimen / Unknown Venipuncture / Unknown 06/25/2024 7:57 AM EDT 06/25/2024 11:58 AM EDT us Enedelia Rdz MD LAB BLOOD ORDERABLES Fin al Result [facility] [address] [place] [address], documented in this encounter Visit Diagnoses Diagnosis Chronic kidney disease, unspecified Gastro-esophageal reflux disease without esophagitis Essential (primary) hypertension Unspecified essential hypertension Thrombocytopenia, unspecified (CMS/HCC V24) Thrombocytopenia, unspecified documented in this encounter Care Teams Miscellaneous Machine Operator Relationship Specialty Start Date End Date Enedelia Rdz MD [address] [place] [address] PCP - General Family Medicine 06/22/24 documented as of this encounter
--- OUTSIDE RECORDS SUMMARY | 2024-08-01 14:02 | XMS_ITS | Clinical Summary ---
Author Organization [address] Address [address] [place] [phone] Phone Care Team Providers Care Stock Checker Name Role Phone Enedelia Rdz MD Primary Care Provider + Encounters Date Type Department Care Team Description 07/06/2024 Lab Requisition [facility] [address] [place] [phone] Enedelia Rdz MD Chronic kidney disease, unspecified; Gastro-esophageal reflux disease without esophagitis; Essential (primary) hypertension; Thrombocytopenia, unspecified (CMS/HCC V24) 06/30/2024 Lab Requisition [facility] Lab [address] [place] [phone] Enedelia Rdz MD Chronic kidney disease, unspecified; Gastro-esophageal reflux disease without esophagitis; Essential (primary) hypertension; Thrombocytopenia, unspecified (CMS/HCC V24) 06/25/2024 Lab Requisition [facility] [address] [place] [phone] Enedelia Rdz MD Chronic kidney disease, unspecified; Gastro-esophageal reflux disease without esophagitis; Essential (primary) hypertension; Thrombocytopenia, unspecified (CMS/HCC V24) 06/22/2024 Lab Requisition [facility] [address] [place] [phone] Enedelia Rdz MD Chronic kidney disease, unspecified; [...] disease without esophagitis Thrombocytopenia, unspecified (CMS/HCC V24) [facility] DEXA AXIAL SKELETON Routine 01/04/2018 2:07 [...] M/mcL LAB HEMETOLOGY METHOD 07/02/2024 11:38 AM [facility] Hemoglobin 10.1(L) 11.5 - 16.0 g/dL LAB HEMETOLOGY METHOD 07/02/2024 11:38 AM [facility] Hematocrit 30.6(L) 35.0 - 47.0 % LAB HEMETOLOGY METHOD 07/02/2024 11:38 AM T [facility] MCV 96.5 79.0 - 98.0 FL LAB HEMETOLOGY METHOD 07/02/2024 11:38 AM [facility] MCH 31.9 27.0 - 32.0 pcg LAB HEMETOLOGY METHOD 07/02/2024 11:38 AM [facility] MCHC 33.0 32.0 - 37.0 g/dL LAB HEMETOLOGY METHOD 07/02/2024 11:38 AM [facility] RDW 15.5(H) 11.0 - 15.0 % LAB HEMETOLOGY METHOD 07/02/2024 11:38 AM [facility] Platelets 150 130 - 400 K/mcL LAB HEMETOLOGY METHOD 07/02/2024 11:38 AM [facility] MPV 10.8 7.0 - 11.0 FL LAB HEMETOLOGY METHOD 07/02/2024 11:38 AM [facility] NRBC 0.0 <1.0 % LAB HEMETOLOGY METHOD 07/02/2024 11:38 AM [facility] NRBC Absolute 0.00 <0.10 K/mcL LAB HEMETOLOGY METHOD 07/02/2024 11:38 AM [facility] Blood Venous blood specimen / Unknown Venipuncture / Unknown 07/02/2024 8:30 AM EDT 07/02/2024 11:09 AM EDT us Enedelia Rdz MD LAB BLOOD ORDERABLES Fin al Result [facility] [address] [place] [address], * Basic metabolic panel (07/02/2024 8:30 AM EDT) Only the most recent of2 resultswithin the time period is included. Sodium 140 133 - 145 mmol/L LAB CHEMISTRY METHOD 07/02/2024 3:00 PM [facility] Potassium 4.5 3.5 - 5.5 mmol/L LAB CHEMISTRY METHOD 07/02/2024 3:00 PM [facility] Chloride 109 96 - 110 mmol/L LAB CHEMISTRY METHOD 07/02/2024 3:00 PM [facility] CO2 22 21 - 32 mmol/L LAB CHEMISTRY METHOD 07/02/2024 3:00 PM [facility] Anion Gap 9 3 - 11 LAB CHEMISTRY METHOD 07/02/2024 3:00 PM [facility] Glucose 78 70 - 100 mg/dL LAB CHEMISTRY METHOD 07/02/2024 3:00 PM [facility] BUN 22 5 - 25 mg/dL LAB CHEMISTRY METHOD 07/02/2024 3:00 PM [facility] Creatinine 0.96 0.50 - 1.10 mg/dL LAB CHEMISTRY METHOD 07/02/2024 3:00 PM [facility] eGFR 62 >=60 mL/min/1. 73m2 LAB CHEMISTRY METHOD 07/02/2024 3:00 PM [facility] Comment:Calculation based on the??Chronic Kidney Disease Epidemiology Collaboration (CKD-EPI) equation refit??without adjustment for race. BUN/Creatinine Ratio 22.9 LAB CHEMISTRY METHOD 07/02/2024 3:00 PM [facility] Calcium 8.8 8.5 - 10.5 mg/dL LAB CHEMISTRY METHOD 07/02/2024 3:00 PM [facility] Blood Venous blood specimen / Unknown Venipuncture / Unknown 07/02/2024 8:30 AM EDT 07/02/2024 11:09 AM EDT Enedelia Rdz MD LAB BLOOD ORDERABLES Fin al Result Performing Organization Address [facility]/ZIP Co de Phone Number [facility] [address] [place] [address], * (ABNORMAL) Magnesium (06/22/2024 6:36 AM EDT) [facility] Magnesium 1.5(L) 1.9 - 2.6 mg/dL LAB CHEMISTRY METHOD 06/22/2024 9:32 AM EDT [facility] Blood Venous blood specimen / Unknown Venipuncture / Unknown 06/22/2024 6:36 AM EDT 06/22/2024 8:02 AM EDT Enedelia Rdz MD LAB BLOOD ORDERABLES Fin al Result Performing Organization Address [facility] de Phone Number [facility] [address] [place] [address], * Folate (06/22/2024 6:36 AM EDT) [facility] Folate 9.5 2.8 - 17.0 ng/ml LAB CHEMISTRY METHOD 06/22/2024 9:55 AM EDT [facility] Blood Venous blood specimen / Unknown Venipuncture / Unknown 06/22/2024 6:36 AM EDT 06/22/2024 8:02 AM EDT Enedelia Rdz MD LAB BLOOD ORDERABLES Fin al Result Performing Organization Address [facility]/ZIP Co de Phone Number [facility] [address] [place] [address], * (ABNORMAL) Vitamin B12 (06/22/2024 6:36 AM EDT) [facility] Vitamin B-12 1,115(H) 250 - 900 pcg/mL LAB CHEMISTRY METHOD 06/22/2024 9:55 AM [facility] Blood Venous blood specimen / Unknown Venipuncture / Unknown 06/22/2024 6:36 AM EDT 06/22/2024 8:02 AM EDT us Enedelia Rdz MD LAB BLOOD ORDERABLES Fin al Result [facility] [address] [place] [address], * (ABNORMAL) Comprehensive metabolic panel (06/22/2024 6:36 AM EDT) Sodium 138 133 - 145 mmol/L LAB CHEMISTRY METHOD 06/22/2024 9:32 AM [facility] Potassium 3.9 3.5 - 5.5 mmol/L LAB CHEMISTRY METHOD 06/22/2024 9:32 AM [facility] Chloride 105 96 - 110 mmol/L LAB CHEMISTRY METHOD 06/22/2024 9:32 AM [facility] CO2 28 21 - 32 [...] Result [facility] [address] [place] [address], * JOSE LUIS DEXA AXIAL SKELETON (01/04/2018 2:07 PM EDT) Anatomical Region Laterality Modality Mammography 01/04/2018 12:5 7 PM EDT Narrative 01/04/2018 2:07 PM EDT [facility] Diagnostic Imaging Department [address] [place] [id number] Patient: ??BONNIE ZAMBRANO ?/Age/Sex: 1950 67 - F Unit#: ??[id number] ? Location/Status: ??SPDIMAM/REG CLI ? Mnemonic/Ordering Site: ??MAMDEXAAX/SPMAM Ordering Physician: ??JEANNE KILLIAN MD [facility] Dexa Axial Skeleton - [...] probability of hip fracture of 7.0%. Code 69302 Dictating Physician: ??PEE KILGORE MD Electronically Signed by: ??PEE KILGORE MD Dic Date/Time: ??01/04/18 1404 Sign date/Time: ??01/04/18 1409 Procedure Note Pee Kilgore MD - 03/02/2022 [facility] Diagnostic Imaging Department [address] [place] [address] Patient: BONNIE ZAMBRANO Hazel ThomasB./Age/Sex: 1950 - 67 - F Unit#: [id number] Location/Status: [facility] Ordering Physician: JEANNE KILLIAN MD [facility] [...] density of the femurs bilaterally is 0.745 gm/jo4wfbue is 74% of that of young normals [...] probability of hip fracture of 7.0%. Code 07017 Dictating Physician: PEE KILGORE MD Electronically Signed by: PEE KILGORE MD Dic Date/Time: 01/04/18 1404 Sign date/Time: 01/04/18 1407 Jeanne Killian MD [facility] [facility] PROCEDURES Final Result from Last 3 Months or Most Recently Relevant to Health Maintenance Insurance MEDICARE [facility] Care Teams Stock Checker Relationship Specialty Start Date End Date Enedelia Rdz MD [address] [place] [address] PCP - General Family Medicine 06/22/24
--- OUTSIDE RECORDS SUMMARY | 2024-08-01 14:02 | XMS_ITS | Encounter Summary ---
Author Organization [facility] Address [address] [place] [address] Care Team Providers Care Capital Equipment Specialist Name Role Phone Enedelia Rdz MD Primary Care Provider + Encounter Details Date Type Department Care Team (Late st Contact Info) Description 06/22/2024 Lab Requisition [facility] Lab [address] [facility] [address] Enedelia Rdz MD [address] [address] Chronic kidney disease, unspecified; Essential [...] * (ABNORMAL) Magnesium (06/22/2024 6:36 AM EDT) [facility] Magnesium 1.5(L) 1.9 - 2.6 mg/dL LAB CHEMISTRY METHOD 06/22/2024 9:32 AM EDT [facility] Blood Venous blood specimen / Unknown Venipuncture / Unknown 06/22/2024 6:36 AM EDT 06/22/2024 8:02 AM EDT us Enedelia Rdz MD LAB BLOOD ORDERABLES Fin al Result [facility] [address] [place] [address], * (ABNORMAL) Vitamin B12 (06/22/2024 6:36 AM EDT) [facility] Vitamin B-12 1,115(H) 250 - 900 pcg/mL LAB CHEMISTRY METHOD 06/22/2024 9:55 AM EDT [facility] Blood Venous blood specimen / Unknown Venipuncture / Unknown 06/22/2024 6:36 AM EDT 06/22/2024 8:02 AM EDT Enedelia Rdz MD LAB BLOOD ORDERABLES Fin al Result [facility] [address] [place] [address], [place] [phone] * Folate (06/22/2024 6:36 AM EDT) [facility] Folate 9.5 2.8 - 17.0 ng/ml LAB CHEMISTRY METHOD 06/22/2024 9:55 AM EDT [facility] Blood Venous blood specimen / Unknown Venipuncture / Unknown 06/22/2024 6:36 AM EDT 06/22/2024 8:02 AM EDT Enedelia Rdz MD LAB BLOOD ORDERABLES Fin al Result [facility] [address] [place] [address], [place] [phone] * (ABNORMAL) Comprehensive metabolic panel (06/22/2024 6:36 AM EDT) [facility] Sodium 138 133 - 145 mmol/L LAB CHEMISTRY METHOD 06/22/2024 9:32 AM EDT [facility] Potassium 3.9 3.5 - 5.5 mmol/L LAB CHEMISTRY METHOD 06/22/2024 9:32 AM EDT [facility] Chloride 105 96 - 110 mmol/L LAB CHEMISTRY METHOD 06/22/2024 9:32 AM EDT [facility] CO2 28 21 - [...] al Result [facility] [address] [place] [address], * (ABNORMAL) Complete blood count (06/22/2024 6:36 [...] LAB HEMETOLOGY METHOD 06/22/2024 9:02 AM EDT [facility] RDW 13.4 11.0 - 15.0 % LAB HEMETOLOGY METHOD 06/22/2024 9:02 AM EDT [facility] Platelets 108(L) 130 - 400 K/mcL LAB HEMETOLOGY METHOD 06/22/2024 9:02 AM EDT [facility] MPV 10.2 7.0 - 11.0 FL LAB HEMETOLOGY METHOD 06/22/2024 9:02 AM EDT [facility] NRBC 0.0 <1.0 % LAB HEMETOLOGY METHOD 06/22/2024 9:02 AM EDT [facility] NRBC Absolute 0.00 <0.10 K/mcL LAB HEMETOLOGY METHOD 06/22/2024 9:02 AM EDT [facility] Blood Venous blood specimen / Unknown Venipuncture / Unknown 06/22/2024 6:36 AM EDT 06/22/2024 8:02 AM EDT us Enedelia Rdz MD LAB BLOOD ORDERABLES Fin al Result [facility] [address] [place] [address], documented in this encounter Visit Diagnoses Diagnosis Chronic kidney disease, unspecified Essential (primary) hypertension Unspecified essential hypertension Chronic obstructive pulmonary disease, unspecified (CMS/HCC V24, CMS/HCC V28) Gastro-esophageal reflux disease without esophagitis Thrombocytopenia, unspecified (CMS/HCC V24) Thrombocytopenia, unspecified documented in this encounter Care Teams Capital Equipment Specialist Relationship Specialty Start Date End Date Enedelia Rdz MD [address] [place] [address] PCP - General Family Medicine 06/22/24 documented as of this encounter
--- OUTSIDE RECORDS SUMMARY | 2024-08-01 14:02 | XMS_ITS | Encounter Summary ---
Author Organization [facility] Address [address] [place] [address] Care Team Providers Care Control Panel Operator Crude Unit Name Role Phone Enedelia Rdz MD Primary Care Provider + Encounter Details Date Type Department Care Team (Late st Contact Info) Description 06/30/2024 Lab Requisition [facility] Lab [address] [facility] [place] [address] Enedelia Rdz MD [address] [phone] Chronic kidney disease, unspecified; Gastro-esophageal reflux disease [...] al Result [facility] [address] [place] [address], * (ABNORMAL) Complete blood count (07/02/2024 8:30 AM EDT) WBC 5.5 4.8 - 10.8 K/mcL LAB HEMETOLOGY METHOD 07/02/2024 11:38 AM EDT [facility] RBC 3.20(L) 3.80 - 4.80 M/mcL LAB [facility]EMETOLOGY [facility] Hemoglobin 10.1(L) 11.5 - [...] LAB HEMETOLOGY METHOD 07/02/2024 11:38 AM EDT [facility] NRBC 0.0 <1.0 % LAB HEMETOLOGY METHOD 07/02/2024 11:38 AM EDT [facility] NRBC Absolute 0.00 <0.10 K/mcL LAB HEMETOLOGY METHOD 07/02/2024 11:38 AM EDT [facility] Blood Venous blood specimen / Unknown Venipuncture / Unknown 07/02/2024 8:30 AM EDT 07/02/2024 11:09 AM EDT us Enedelia Rdz MD LAB BLOOD ORDERABLES Fin al Result [facility] [address] [place] [address], documented in this encounter Visit Diagnoses Diagnosis Chronic kidney disease, unspecified Gastro-esophageal reflux disease without esophagitis Essential (primary) hypertension Unspecified essential hypertension Thrombocytopenia, unspecified (CMS/HCC V24) Thrombocytopenia, unspecified documented in this encounter Care Teams Control Panel Operator Crude Unit Relationship Specialty Start Date End Date Enedelia Rdz MD [address] [place] [address] PCP - General Family Medicine 06/22/24 documented as of this encounter
== END 2024-08-01 14:24 | disposition home or self-care (01) ==
LOC: HO.HMCC 13:28
PROVIDERS: PCP Internal Medicine; Visit Provider Internal Medicine
DX: I50.30 Unspecified diastolic (congestive) heart failure (principal); C67.9 Malignant neoplasm of bladder, unspecified; K76.6 Portal hypertension; J44.9 Chronic obstructive pulmonary disease, unspecified

== ENCOUNTER → 2024-08-01 13:27 | Outpatient (BNVA) | payer MEDICARE, SELFPAY | PROVIDERS: PCP Internal Medicine; Visit Provider Internal Medicine | DX: I50.30 Unspecified diastolic (congestive) heart failure (principal); C67.9 Malignant neoplasm of bladder, unspecified; K76.6 Portal hypertension; J44.9 Chronic obstructive pulmonary disease, unspecified | CPT/HCPCS: 99212 ==

== ENCOUNTER → 2024-08-08 23:59 | Outpatient (BNV) | payer MEDICARE, SELFPAY | PROVIDERS: PCP Internal Medicine; Visit Provider Internal Medicine | DX: J44.1 Chronic obstructive pulmonary disease with (acute) exacerbation (principal); D69.6 Thrombocytopenia, unspecified; I50.9 Heart failure, unspecified | CPT/HCPCS: G0180 ==

== ENCOUNTER 2024-09-04 10:16 | Outpatient (REF) | payer MEDICARE, SELFPAY ==
[2024-09-04 12:55] LABS: MANUAL DIFF FLAG NO
[2024-09-04 13:07] LABS: Basophils Percent Auto 0.6 % (0-2); Eosinophils Absolute Auto 0.2 X10*3/uL (0.0-0.4); Eosinophils Percent Auto 2.9 % (0-4); Hematocrit 33.8 % (37.0-47.0); Hemoglobin 11.2 g/dl (12.0-16.0); Imm Gran Abs Auto 0.02 X10*3/uL (0.00-0.03); Imm Gran Pct Auto 0.3 % (0.0-0.4); Lymphocytes Absolute Auto 1.4 X10*3/uL (1.2-4.9); Lymphocytes Percent Auto 20.3 % (20-40); Mean Corpuscular HGB Conc 33.1 g/dl (31.0-35.0); Mean Corpuscular Hemoglobin 30.4 pg (27.0-33.0); Mean Corpuscular Volume 91.8 fL (80.0-98.0); Mean Platelet Volume 10.7 fL (9.4-12.3); Monocytes Absolute Auto 0.5 X10*3/uL (0.1-1.2); Neutrophils Absolute Auto 4.7 x10*3/uL (2.0-8.3); Neutrophils Percent Auto 68.9 % (45-73); Platelet Count 126 X10*3/uL (160-400); Red Blood Count 3.68 X10*6/uL (4.20-5.50); Red Cell Distribution Width 13.2 % (11.0-16.0); White Blood Count 6.8 X10*3/uL (4.8-10.8)
[2024-09-04 13:21] LABS: Anion Gap 13 (12-20); Blood Urea Nitrogen 25 mg/dL (9-16); Calcium 9.2 mg/dL (8.4-10.2); Carbon Dioxide 25 mmol/L (22-29); Chloride 109 mmol/L (96-108); Estimated Glomerular Filt Rate 41; Glucose Random 92 mg/dL (60-115); Potassium 4.1 mmol/L (3.3-5.1); Sodium 143 mmol/L (135-145)
[2024-09-04 13:24] LABS: Appearance Urine Clear; Color Urine Yellow; Glucose Urine UA Negative (Negative); Leukocyte Esterase Urine Negative (Negative); Nitrite Urine Negative (Negative); PH 5.5 (5.0-9.0); Specific Gravity - Urine 1.015 (1.005-1.025); Urine Blood Negative (Negative); Urine Ketones Negative (Negative); Urine Protein Negative (Neg-Trace)
[2024-09-04 13:27] LABS: Bacteria Urine None Seen (None Seen); Hyaline Casts Urine 0-2 /LPF (0-2); RBC Urine 0-2 /HPF (0-2); Squamous Epithelial Cell Urine 0-2 /HPF (0-2); WBC Urine 0-5 /HPF (0-5)
== END 2024-09-04 10:17 | disposition home or self-care (01) ==
LOC: HO.HMGCLDS 10:16
PROVIDERS: PCP Internal Medicine; Visit Provider Internal Medicine
DX: I10 Essential (primary) hypertension (principal); R42 Dizziness and giddiness; J44.9 Chronic obstructive pulmonary disease, unspecified; D64.9 Anemia, unspecified; F41.9 Anxiety disorder, unspecified; F32.A Depression, unspecified; R30.0 Dysuria; Z79.899 Other long term (current) drug therapy
CPT/HCPCS: 36415; 80048; 81001; 85025; 87086; 99212

== ENCOUNTER 2024-09-04 10:16 | Outpatient (AMB) | payer MEDICARE, SELFPAY ==
[2024-09-04 10:22] VITALS: BP 130/82; PULSE 67; RESP 20; TEMP 36.8; O2SAT 97; BMI 27.8
--- NOTE | 2024-09-04 10:22 | MHC.PC.OV ---
Vital Signs 09/04/24 10:22 Height 5 ft 3 in Weight 157 lb BMI 27.8 BP 130/82 Blood Pressure Location Lt brachial Position Sitting Respiration 20 Pulse 67 Pulse Source Pulse Oximeter Temp 98.3 F Temp Source Oral Pulse Oximetry (%) 97 Oxygen Delivery Method Room Air Intake Visit Reasons: Dizziness Intake Note: Pt is here today for a sick visit. Pt c/o dizziness since getting home from the hospital started couple weeks ago. Allergies cefotetan Allergy (Unknown, Verified 09/04/24 10:22) unknown cefuroxime (From Ceftin) Allergy (Unknown, Verified 09/04/24 10:22) Unknown ciprofloxacin (Cipro) Allergy (Unknown, Verified 09/04/24 10:22) unknown latex Allergy (Unknown, Verified 09/04/24 10:22) Unknown moxifloxacin (From Avelox) Allergy (Unknown, Verified 09/04/24 10:22) Unknown prochlorperazine (From Compazine) Allergy (Unknown, Verified 09/04/24 10:22) Unknown alendronate sodium Adverse Reaction (Intermediate, Verified 09/04/24 10:22) Stomach Upset amlodipine Adverse Reaction (Uncoded 09/04/24 10:22) Abdominal Pain Medication List - Last Reconciled 09/04/24 by Jeanne Killian MD alendronate 70 mg PO QWEEK aspirin 81 mg PO DAILY atorvastatin 40 mg PO DAILY cholecalciferol (vitamin D3) (Vitamin D3) 25 mcg PO DAILY fluticasone furoate-vilanterol 200-25 mcg/dose (Breo Ellipta) 1 inh inhalation DAILY furosemide 20 mg PO DAILY lisinopril 1/2 orally daily; multivitamin 1 tab PO DAILY omeprazole 40 mg PO DAILY@0630 propranolol 20 mg PO BID sertraline 50 mg PO DAILY spironolactone 25 mg (1/2 x 50 mg) PO DAILY Tobacco use date assessed: 09/04/24 Fall risk assessment: No Falls in past year Last assessed Fall Risk: 09/04/24 Dental Screening Dental Screen Date: 08/01/24 HPI Dizziness HPI Details Patient presents complaining of the episode of sharp pain starting at the back of her neck radiating to occipital region lasting a few sec not related to position or activity, once or twice a week. Patient denies headaches change in the vision weakness or numbness in extremities change in balance. Patient is grieving her and has been attending counseling sessions weekly. She reports intermittent insomnia and decreased appetite. Patient denies suicide ideation she has been taking sertraline. COPD hypertension and hyperlipidemia controlled on current medications. [facility] Medical History (Updated 09/04/24 @ 15:28 by Jeanne Killian MD) Hearing loss (HFpEF) heart failure with preserved ejection fraction Cirrhosis Bladder carcinoma Osteoporosis Annual physical exam Restrictive lung disease Pulmonary nodule Allergic rhinitis Atypical ductal hyperplasia of breast COPD (chronic obstructive pulmonary disease) Thrombocytopenia Aortic valve sclerosis Breast CA Depression Essential hypertension Portal hypertension Surgical History H/O colonoscopy History of esophagogastroduodenoscopy (EGD) History of surgery History of inguinal hernia repair Hx of cholecystectomy Family History Father No problems noted. Mother Colon cancer Sister Breast cancer Social History Household Members: None Household Members Other:: lives alone Housing: House Do you presently have visiting nurse or other home services: No Alcohol intake: current Alcohol intake frequency: holidays/special occasions only Patient Tobacco Use Status: Never used Tobacco e-Cigarette/Vaping Use: Never Used Second Hand Smoke Exposure: No service: No Current occupational status: retired Cognitive needs: No Hearing needs: No Vision needs: Yes Questionnaire Thrive Questionnaire Date Thrive assessed: 03/14/24 I am a: Patient What is your living situation today?: I have a steady place to live Within the past 12 months, did the food you bought not last and you didn't have the money to get more?: I choose not to answer this question Within the past 12 months, did you worry whether your food would run out before you got money to buy more?: I choose not to answer this question Do you have trouble paying for medicines?: Yes Do you have trouble getting transportation to medical appointments?: No Do you have trouble paying your heating and electricity bill?: No Do you have trouble taking care of your child, family member or friend?: No Do you have trouble with day-to-day activities such as bathing, preparing meals, shopping, managing finances, etc.?: No Are you currently unemployed and looking for a job?: No Are you interested in more education?: No Please select the resources that you would like help with: Paying for medicine Currently or been in a relationship where the following occur: I choose not to answer THRIVE Score: 0 ELENA-7 AMB Questionnaire ELENA-7 Date ELENA - 7 assessed: 03/21/24 Source: Developed by Drs. Alber Mcelroy, Rula Pantoja, Ranulfo Kirkpatrick and colleagues, with an educational laly from [employer]. Review of Systems Const All systems reviewed & are unremarkable except as noted in HPI and below Eyes Reports no additional complaints ENT Reports no additional complaints Resp Reports no additional complaints GI Reports no additional complaints Reports no additional complaints Musc Reports no additional complaints Physical exam (Primary Care) Vital Signs: Last Vital Signs Temp 98.3 F 09/04/24 10:22 Pulse 67 09/04/24 10:22 Resp 20 09/04/24 10:22 BP 130/82 09/04/24 10:22 Pulse Ox 97 09/04/24 10:22 Oxygen Delivery Method Room Air 09/04/24 10:22 BMI result Body Mass Index 27.8 Tobacco/Smoking Status: Tobacco use Status Tobacco use date assessed 09/04/24 09/04/24 10:27 Patient Tobacco Use Status Never used Tobacco 09/04/24 10:27 e-Cigarette/Vaping Use Never Used 09/04/24 10:27 Thrive Assessment: Date of Thrive Assessment Date Thrive assessed 03/14/24 09/04/24 10:27 Currently or been in a relationship where the following occur: I choose not to answer Const General: no acute distress HENMT Ears: hearing grossly normal bilaterally Eyes General: appearance normal, both eyes and all related structures Resp Effort & Inspection: normal respiratory effort Auscultation: clear to auscultation bilaterally Cardio Rhythm: regular rhythm Heart sounds: S1 normal heart sound present and S2 normal heart sound present GI Inspection: Yes normal to inspection Palpation (GI): Soft to palpation Percussion: Yes normal to percussion Auscultation: normal bowel sounds Coding Level of Care Code Est Pt Level 4 (00157) Diagnoses Essential hypertension I10 COPD (chronic obstructive pulmonary disease) J44.9 Anemia D64.9 Anxiety and depression F41.9; F32.A Assessment & Plan Assessment & Plan (1) Essential hypertension: Code(s): I10 - Essential (primary) hypertension Category: Medical Plan: Continue current medication check blood work today (2) COPD (chronic obstructive pulmonary disease): Comment: moderately severe chronic obstructive pulmonary disease . Code(s): J44.9 - Chronic obstructive pulmonary disease, unspecified Category: Medical Plan: Continue Breo (3) Anemia: Comment: Chronic, after chemotherapy, normal iron and B12 Code(s): D64.9 - Anemia, unspecified Category: Medical Plan: Monitor CBC and iron (4) Anxiety and depression: Code(s): F41.9 - Anxiety disorder, unspecified; F32.A - Depression, unspecified Category: Medical Plan: Continue sertraline, stress management and grieving process discussed with the patient. Orders: Orders Basic Metabolic Panel Today I10 - Essential (primary) hypertension, R30.0 - Dysuria Complete Blood Count Auto Diff Today I10 - Essential (primary) hypertension, R30.0 - Dysuria Urine Culture Today R30.0 - Dysuria UA w Microscopic Today I10 - Essential (primary) hypertension, R30.0 - Dysuria
--- OUTSIDE RECORDS SUMMARY | 2024-09-04 11:22 | XMS_ITS | Data Portability ---
Author Organization GINI Mckenan s [address] Address [address] [place] [address] Care Team Providers Care Collar Padder Blindstitch Name Role Phone LUCILLE BURNS Primary Care Provider [phone] Assessment No assessment recorded. Plan of Treatment Reminders Order Date Submit Date Provider Last Modified By Organization Details Last Modified Time Details Appointments None recorded. Lab None recorded. Referral None recorded. Procedures None recorded. Surgeries None recorded. Imaging None recorded. Medication Orders doxycycline hyclate 100 mg tablet 2022 023 [facility]EL[facility] [employer] #[id number], [address] [place], [place], [id number], 3 11:56:50 benzonatate 200 mg capsule 2022 023 [facility] [employer] #[id number], [address], [place], [id number], 3 11:56:50 Patient TargetsNo targets recorded. Patient Instructions Encounter Date Encounter Id Patient Instructions Last Modified By Organization Details Last Modified Time 09/11/2022 [id number] cough: care instructions [email or web address] Not available 09/11/2022 11:56:39 You are being [...] or lung pathology. Thank you for using [employer] today - please don't hesitate to contact up or return to see if you have any questions or concerns. [email or web address] Not available 09/11/2022 11:55:42 Reason for Referral None Reported. 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 Medical Equipment None Reported. Allergies Allergen ID Allergen Name Allergen Category Reaction Reaction Severity Criticality Documentation Date Start Date Code Code System Note Provider Name and Address Organization Details Recorded Time 577567 Compazine medicatio n Not available Not available Not available 09/11/2022 75185 6 RxNorm Allie Galeana null, PA - [facility] 3 11:19:10 560669 Fosamax medicatio n Not available Not available Not available 09/11/2022 18696 5 RxNorm Allie Galeana null, PA - [facility] 3 11:19:22 117880 Cipro medicatio n Not available Not available Not available 09/11/202240578 3 RxNorm Allie Galeana null, PA - [facility] 3 11:19:29 690753 Ceftin medicatio n Not available Not available Not available 09/11/2022 14831 6 RxNorm Allie Galeana null, PA - [...] Updated DateTime 3 160.02 cm 29.8 kg/m2 89719.5 2 g 20 /min 96 % 96 % 65 /min 98.5 [degF] 164 mm[Hg] 88 mm[Hg] Alliegautam Rangelellie PA - [facility] 3 11:27:38 Social History Question Answer Notes LastModified by [employer] Details LastModified Time Tobacco Smoking Status Never Smoker Allie richter PA - [facility] 09/11/2022 11:25:16 Have You Recently Traveled Abroad? No Information not available 09/11/2022 Sex: Unknown Functional Status Question Answer Note LastModified by [employer] Details LastModified Time Do you use any [...] Influenza, adjuvanted, quadrivalent, PF 0 completed Allie richter, PA - [facility] [...] SNOMED-CT Code Diagnosis ICD10 Code Diagnosis Note [id number] [address] [facility] [address] [place] [address] 01/12/2015 09:01:28 01/12/2015 09:34:14 [id number] GINI ISBELL [address] [place] [address] 09/11/2022 11:07:38 09/11/2022 11:57:33 Acute sinusitis 78308486 J01.90 Cough 20662552 R05.9 History of Chronic Bronchitis . Hypertensive disorder 38 079921 I10 Your blood pressure was elevated today [...] Member ID Guarantor Name 09/13/2022 2 [place] [facility] ([facility]) [id number] Benny Fofana [id number] Nayeli Clayuch 09/13/2022 2 [place] Nayeli Oliva Czuchra [id number] Nayeli E Czuchra 09/11/2022 2 [place] Nayeli Hazel Czuchra [id number] Nayeli E Czuchra 09/11/2022 1 [place] B[place] [employer] Nayelimarla Clayuchra [id number] Nayeli E Czuchra Notes Date Note [...] ISBELL [address] [place], [address], PA - [facility] 09/11/2022 13:31:17 OBGyn Episode No OBEpisode recorded.
== END 2024-09-04 12:57 | disposition home or self-care (01) ==
LOC: HO.HMCC 10:16
PROVIDERS: PCP Internal Medicine; Visit Provider Internal Medicine
DX: I10 Essential (primary) hypertension (principal); J44.9 Chronic obstructive pulmonary disease, unspecified; D64.9 Anemia, unspecified; F41.9 Anxiety disorder, unspecified; F32.A Depression, unspecified

== ENCOUNTER 2024-11-28 09:55 | Outpatient (REF) | payer MEDICARE, SELFPAY ==
--- OUTSIDE RECORDS SUMMARY | 2024-11-28 11:53 | XMS_ITS | Encounter Summary ---
Author Organization [facility] Address [address] [place] [address] [place] [address] Phone Care Team Providers Care Clerk Typist Name Role Phone Self-Referred, Patient Unavailable Unavailab le Benito Mcconnell MD, MPH Unavailable [phone] Jeanne Killian MD Primary Care Provider [phone] Puma Kang MD, MPH Unavailable [phone] Eric Stevenson MD Unavailable [phone] Geri Parks MD Unavailable [phone] Reason for Referral * MRI/CAT Scan - Closed Specialty Diagnoses / Procedures Referred By Contmigel t Referred To Contact Procedures CT Abdomen Outside (No Interpretation) Benito Mcconnell MD, MPH Phone: tel: fax: mailto:[email or web address] Referral ID Status Reason Start Date Expiration Date Visits Re quested Visits Authorized [id number] Closed 02/18/2017 02/18/2018 1 1 Encounter Details Date Type Department Care Team (Late st Contact Info) Description 02/18/2017 Transcribe Orders [facility] [address] [place] [address] Jordyn Still [address] [place] [address] [email or web address] Social History Tobacco Use Types Packs/Day Years Used Date Smoking Tobacco: Never Smokeless Tobacco: Never Alcohol Use Standard Drinks/Week Comments No 0 (1 standard drink = 0.6 oz pur e alcohol) Comments No Sex and Gender Information Value Date Recorded Sex Assigned at Not on file Legal Sex Female 2:48 PM EDT Gender Identity Not on file Sexual Orientation Not on file documented as of this encounter Plan of Treatment Upcoming Encounters Date Type Department Care Team (Late st Contact Info) Description 04/04/2025 1:00 PM EST Office Visit [address] [address] Benito Mcconnell MD, MPH [address] [place] [address] [email or web address] documented as of this encounter Results * CT Abdomen Outside (No Interpretation) (02/18/2017 12:00 AM EST) Narrative [facility] - 02/18/2017 10:27 AM EST This study is for PACS storage only and not for interpretation. us Benito Mcconnell MD, MPH IMG OUTSIDE IMAGING W/OUT INTERPRETATION Final Result [facility] documented in this encounter Visit Diagnoses Not on filedocumented in this encounter Care Teams Clerk Typist Relationship Specialty Start Date End Date Jeanne Killian MD [address] [place] [address] PCP - General Internal Medicine 01/20/16 Self-Referred, Patient 12/29/15 Benito Mcconnell MD, MPH [address] [place] [address] [email or web address] Primary Oncologist Urology 12/29/15 Puma Kang MD, MPH [address] [place] [address], ASB1- L2 [place] [address] [email or web address] Radiation Oncology 02/06/16 Eric Stevenson MD [address] [place] [address], [address] [place] [address] [email or web address] Urology 02/06/16 Geri Parks MD [address] [place] [address] for Oncology, [address] [address] [email or web address] Primary Oncologist Oncology 02/06/16 documented as of this encounter Additional Source Comments The information contained in this document represents components of the legal health record. It is not the complete legal health record.[facility]
--- OUTSIDE RECORDS SUMMARY | 2024-11-28 11:53 | XMS_ITS | Encounter Summary ---
Author Organization [facility] Address [address] [place] [address] Phone Care Team Providers Care Residential Coordinator Name Role Phone Self-Referred, Patient Unavailable Unavailab Benito Morrow MD, MPH Unavailable [phone] Jeanne Killian MD Primary Care Provider [phone] Puma Kang MD, MPH Unavailable [phone] Eric Stevenson MD Unavailable [phone] Geri Parks MD Unavailable [phone] Reason for Referral * MRI/CAT Scan - Closed Specialty Diagnoses / Procedures Referred By Trever manuel Referred To Contact Radiology Diagnoses Bladder cancer Procedures CT Chest Benito Mcconnell MD, MPH Phone: tel: fax: mailto:[email or web address] Referral ID Status Reason Start Date Expiration Date Visits Re quested Visits Authorized [id number] Closed 05/09/2019 05/08/2020 1 1 Encounter Details Date Type Department Care Team ([facility] st Contact Info) Description 05/09/2019 Ancillary Orders [facility] Urology [address] [place], [place] [address] [place] [address] Benito Mcconnell MD, MPH [address] [place] [address] [address] [place], [place] [id number] [email or web address] Bladder cancer Social History Tobacco Use Types Packs/Day Years [...] Description 04/04/2025 1:00 PM EST Office Visit [address] [address] Benito Mcconnell MD, MPH [address] [place] [address] [email or web address] documented as of this encounter Results * CT CHEST WITH CONTRAST (05/10/2019 9:52 AM EST) Anatomical Region Laterality Modality Chest Computed Tomogra phy 05/10/2019 10:1 1 AM EST Impressions 05/10/2019 1:56 PM EST 1. Interval decrease in subpleural reticulation within the upper lobes. 2. No evidence of metastatic disease in the chest. 3. Redemonstration of enlarged and tortuous collateral vasculature of the upper abdomen as well as the azygos and hemiazygos veins. ATTESTATION: Benito Goodson, as teaching physician have reviewed the images, if any, for this patient's exam, and if necessary, have edited the report originally created by Tian Anguiano. Narrative 05/10/2019 1:56 PM EST Reason for exam (per EHR order): [MALIGNANCY] BLADDER (HX MALIG NO EVIDENCE DZ; BLADDER CANCER) Additional clinical information obtained from the EHR: 65 y.o. 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 TECHNIQUE: Multiplanar CT imaging of the chest was performed. Intravenous contrast: 50 ml of Omnipaque 350. COMPARISON: CT chest performed August 02, 2017. FINDINGS: Ports and Devices: None. Lungs: Interval decrease of previously seen subpleural reticular opacification of the upper lobes. Unchanged 4 mm right lower lobe subpleural nodule. Unchanged focal bronchiectasis of the left upper lobe. No new pulmonary nodules. Pleura: No pleural effusion. Lymph Nodes: Right axillary lymph node dissection. No enlarged supraclavicular, axillary, mediastinal or hilar lymph nodes. Mediastinum: Distended azygos and hemiazygos veins. Mitral annular calcifications. Cardiomegaly. No pericardial effusion. Chest Wall / Breasts: Surgical clip in the right breast. Upper Abdomen: Status post cholecystectomy. Splenomegaly. Left upper pole renal cyst. Right nephrectomy. Unchanged perihepatic cyst. 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 There are enlarged and tortuous collateral vasculature of the upper abdomen, similar to prior exam. Musculoskeletal: Degenerative changes of the visualized spine. No destructive osseous lesions. Procedure Note Benito Cardoza MD - 05/10/2019 Reason for exam (per EHR order): [MALIGNANCY] BLADDER (HX MALIG NOEVIDENCE DZ; BLADDER CANCER) Additional clinical information obtained from the EHR: 65 y.o. femalewith history of breast cancer and now s/p right ureteral T2 urothelialcarcinoma (12/2014) and with recurrent high-grade bladder cancer. TECHNIQUE: Multiplanar CT imaging of the chest was performed. Intravenous contrast: 50 ml of Omnipaque 350. COMPARISON: CT chest performed August 02, 2017. FINDINGS: Ports and Devices: None. Lungs: Interval decrease of previously seen subpleural reticularopacification of the upper lobes. Unchanged 4 mm right lower lobe subpleural nodule.Unchanged focal bronchiectasis of the left upper lobe. No new pulmonary nodules. Pleura: No pleural effusion. Lymph Nodes: Right axillary lymph node dissection. No enlargedsupraclavicular, axillary, mediastinal or hilar lymph nodes. Mediastinum: Distended azygos and hemiazygos veins. Mitral annular calcifications. Cardiomegaly. No pericardial effusion. Chest Wall / Breasts: Surgical clip in the right breast. Upper Abdomen: Status post cholecystectomy. Splenomegaly. Left upper polerenal cyst. Right nephrectomy. Unchanged perihepatic cyst. 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 There are enlarged andtortuous collateral vasculature of the upper abdomen, similar to prior exam. Musculoskeletal: Degenerative changes of the visualized spine. Nodestructive osseous lesions. IMPRESSION: 1. Interval decrease in subpleural reticulation within the upper lobes. 2. No evidence of metastatic disease in the chest. 3. Redemonstration of enlarged and tortuous collateral vasculature of theupper abdomen as well as the azygos and hemiazygos veins. ATTESTATION: I, Benito Cardoza, as teaching physician have reviewed theimages, if any, for this patient's exam, and if necessary, have edited the report originally created by Tian Anguiano. us Benito Mcconnell MD, MPH IMG CT CHEST Final Res ult documented in this encounter Visit Diagnoses Diagnosis Bladder cancer Malignant neoplasm of bladder, part unspecified Bladder cancer Malignant neoplasm of bladder, part unspecified documented in this encounter Care Teams Residential Coordinator Relationship Specialty Start Date End Date Jeanne Killian MD [address] [place] [address] PCP - General Internal Medicine 01/20/16 Self-Referred, Patient 12/29/15 Benito Mcconnell MD, MPH [address] [place] [address] [address] [place] [address] [email or web address] Primary Oncologist Urology 12/29/15 Puma Kang MD, MPH [address] [place] [address], ASB1- [address] [place] [address] [email or web address] Radiation Oncology 02/06/16 Eric Stevenson MD [address] [place] [address], [address] [place] [address] Urology 02/06/16 Geri Parks MD [address] [facility] for Oncology, [address] [place] [address] [email or web address] Primary Oncologist Oncology 02/06/16 documented as of this encounter Additional Source Comments The information contained in this document represents components of the legal health record. It is not the complete legal health record.[facility]
--- OUTSIDE RECORDS SUMMARY | 2024-11-28 11:53 | XMS_ITS | Encounter Summary ---
Author Organization [facility] Address [address] [place] [address] Phone Care Team Providers Care Sensory Scientist Name Role Phone Self-Referred, Patient Unavailable Unavailab Benito Morrow MD, MPH Unavailable [phone] Jeanne Killian MD Primary Care Provider [phone] Jeanne Killian MD Primary Care Provider [phone] Puma Kang MD, MPH Unavailable [phone] Eric Stevenson MD Unavailable [phone] Geri Parks MD Unavailable [phone] Encounter Details Date Type Department Care Team (Late st Contact Info) Description 01/19/2016 Procedure Pass [facility] [address] [place] [address] Social History Tobacco Use Types Packs/Day Years Used Date Smoking Tobacco: Never Assessed Comments Unknown Sex and Gender Information Value Date Recorded Sex Assigned at Not on file Legal Sex Female 2:48 PM EDT Gender Identity Not on file Sexual Orientation Not on file documented as of this encounter Plan of Treatment Upcoming Encounters Date Type Department Care Team (Late st Contact Info) Description 04/04/2025 1:00 PM EST [facility] [address] Benito Mcconnell MD, MPH [address] [place] [address] [email or web address] documented as of this encounter Visit Diagnoses Not on filedocumented in this encounter Care Teams Sensory Scientist Relationship Specialty Start Date End Date Jeanne Killian MD [address] [facility] [address] [place] [address] PCP - General Internal Medicine 01/20/16 Jeanne Killian MD [address] [facility] [address] [place] [address] PCP - General Internal Medicine 01/19/16 01/19/16 Self-Referred, Patient 12/29/15 Benito Mcconnell MD, MPH [address] [place] [address] [address] [place] [address] [email or web address] Primary Oncologist Urology 12/29/15 Puma Kang MD, MPH [address] [place] [address], ASB1- L2 [place] [address] ROSANNA@[email or web address] Radiation Oncology 02/06/16 Eric Stevenson MD [address] [place] [address], [address] [place] [address] Urology 02/06/16 Geri Parks MD [address] [place] [address] for Oncology, [address] [place] [address] [email or web address] Primary Oncologist Oncology 02/06/16 documented as of this encounter Additional Source Comments The information contained in this document represents components of the legal health record. It is not the complete legal health record.[facility]
--- OUTSIDE RECORDS SUMMARY | 2024-11-28 11:53 | XMS_ITS | Encounter Summary ---
Author Organization [facility] Address [address] [place] [address] [place] [address] Phone Care Team Providers Care Pipe Fitter Marine Name Role Phone Self-Referred, Patient Unavailable Unavailab Benito Morrow MD, MPH Unavailable [phone] Jeanne Killian MD Primary Care Provider [phone] Puma Kang MD, MPH Unavailable [phone] Eric Stevenson MD Unavailable [phone] Geri Parks MD Unavailable [phone] Encounter Details Date Type Department Care Team (Late st Contact Info) Description 06/16/2017 Procedure Pass [facility] [address] [place] [address] Social History Tobacco Use Types Packs/Day Years [...] Description 04/04/2025 1:00 PM EST Office Visit [facility] [address] [place] [address] Benito Mcconnell MD, MPH [address] [place] [address] [email or web address] documented as of this encounter Visit Diagnoses Not on filedocumented in this encounter Care Teams Pipe Fitter Marine Relationship Specialty Start Date End Date Jeanne Killian MD [address] [facility] [place] [address] PCP - General Internal Medicine 01/20/16 Self-Referred, Patient 12/29/15 Benito Mcconnell MD, MPH [address] [facility] [address] [place] [address] [email or web address] Primary Oncologist Urology 12/29/15 Puma Kang MD, MPH [address] [facility], ASB1- L2 [place] [address] [email or web address] Radiation Oncology 02/06/16 Eric Stevenson MD [address] [facility], [address] [place] [address] Urology 02/06/16 Geri Parks MD [address] [place] [address] for Oncology, [address] [address] [email or web address] Primary Oncologist Oncology 02/06/16 documented as of this encounter Additional Source Comments The information contained in this document represents components of the legal health record. It is not the complete legal health record.[facility]
--- OUTSIDE RECORDS SUMMARY | 2024-11-28 11:53 | XMS_ITS | Encounter Summary ---
Author Organization [facility] Address [address] [place] [address] [place] [address] Phone Care Team Providers Care Drawbridge Tender Name Role Phone Self-Referred, Patient Unavailable Unavailab Benito Morrow MD, MPH Unavailable [phone] Jeanne Killian MD Primary Care Provider [phone] Puma Kang MD, MPH Unavailable [phone] Eric Stevenson MD Unavailable [phone] Geri Parks MD Unavailable [phone] Encounter Details Date Type Department Care Team (Late st Contact Info) Description 02/18/2017 Procedure Pass [facility] Radiology [address] [place] [address] Social History Tobacco Use Types Packs/Day Years [...] Encounters Date Type Department Care Team (Late Contact Info) Description 04/04/2025 1:00 PM EST Office Visit [address] [address] Benito Mcconnell MD, MPH [address] [place] [address] [email or web address] documented as of this encounter Visit Diagnoses Not on filedocumented in this encounter Care Teams Drawbridge Tender Relationship Specialty Start Date End Date Jeanne Killian MD [address] [facility] [place] [address] PCP - General Internal Medicine 01/20/16 Self-Referred, Patient 12/29/15 Benito Mcconnell MD, MPH [address] [facility] [address] [place] [address] [email or web address] Primary Oncologist Urology 12/29/15 Puma Kang MD, MPH [address] [facility], ASB1- L2 [place] [address] ROSANNA@[email or web address] Radiation Oncology 02/06/16 Eric Stevenson MD [address] [facility], [address] [place] [address] Urology 02/06/16 Geri Parks MD [address] [place] [address] for Oncology, [address] [address] [email or web address] Primary Oncologist Oncology 02/06/16 documented as of this encounter Additional Source Comments The information contained in this document represents components of the legal health record. It is not the complete legal health record.[facility]
--- OUTSIDE RECORDS SUMMARY | 2024-11-28 11:53 | XMS_ITS | Encounter Summary ---
Author Organization [facility] Address [address] [place] [address] Phone Care Team Providers Care Gasoline Attendant Name Role Phone Self-Referred, Patient Unavailable Unavailab Benito Morrow MD, MPH Unavailable Jeanne Killian MD Primary Care Provider [phone] Puma Kang MD, MPH Unavailable [phone] Eric Stevenson MD Unavailable [phone] Geri Parks MD Unavailable [phone] Encounter Details Date Type Department Care Team (Late st Contact Info) Description 01/03/2020 Procedure Pass [facility] [address] [place] [address] Social History Tobacco Use Types Packs/Day Years [...] Description 04/04/2025 1:00 PM EST [facility] [place] [address] Benito Mcconnell MD, MPH [address] [place] [address] [address] [place] [address] BRISA@[email or web address] documented as of this encounter Visit Diagnoses Not on filedocumented in this encounter Care Teams Gasoline Attendant Relationship Specialty Start Date End Date Jeanne Killian MD [address] [place] [address] PCP - General Internal Medicine 01/20/16 Self-Referred, Patient 12/29/15 Benito Mcconnell MD, MPH [address] [place] [address] [address] [place] [address] BRISA@[email or web address] Primary Oncologist Urology 12/29/15 Puma Kang MD, MPH [address] [place] [address], [facility]1- L2 [place] [address] ROSANNA@[email or web address] Radiation Oncology 02/06/16 Eric Stevenson MD [address] [place] [address], [address] [place] [address] Urology 02/06/16 Geri Parks MD [address] [place] [address] for Oncology, [address] [address] [email or web address] Primary Oncologist Oncology 02/06/16 documented as of this encounter Additional Source Comments The information contained in this document represents components of the legal health record. It is not the complete legal health record.[facility]
--- OUTSIDE RECORDS SUMMARY | 2024-11-28 11:53 | XMS_ITS | Encounter Summary ---
Author Organization [facility] Address [address] [place] [address] Phone Care Team Providers Care Tube Splicer Name Role Phone Self-Referred, Patient Unavailable Unavailab Benito Morrow MD, MPH Unavailable [phone] Jeanne Killian MD Primary Care Provider [phone] Puma Kang MD, MPH Unavailable [phone] Eric Stevenson MD Unavailable [phone] Geri Parks MD Unavailable [phone] Encounter Details Date Type Department Care Team (Late st Contact Info) Description 06/04/2021 Procedure Pass [facility] 20 [place] [address] Social History Tobacco Use Types Packs/Day Years [...] Description 04/04/2025 1:00 PM EST [facility] [place] [address] Benito Mcconnell MD, MPH [address] [place] [address] [address] [place] [address] BRISA@[email or web address] documented as of this encounter Visit Diagnoses Not on filedocumented in this encounter Care Teams Tube Splicer Relationship Specialty Start Date End Date Jeanne Killian MD [address] [place] [address] PCP - General Internal Medicine 01/20/16 Self-Referred, Patient 12/29/15 Benito Mcconnell MD, MPH [address] [place] [address] [address] [place] [address] BRISA@[email or web address] Primary Oncologist Urology 12/29/15 Puma Kang MD, MPH [address] [place] [address], [facility]- [address] [place] [address] ROSANNA@[facility] Radiation Oncology 02/06/16 Eric Stevenson MD [address] [place] [address], [address] [place] [address] Urology 02/06/16 Geri Parks MD [address] [place] [address] for Oncology, [place] 9 [place] [address] Renea@[email or web address] Primary Oncologist Oncology 02/06/16 documented as of this encounter Additional Source Comments The information contained in this document represents components of the legal health record. It is not the complete legal health record.[facility]
--- OUTSIDE RECORDS SUMMARY | 2024-11-28 11:53 | XMS_ITS | Encounter Summary ---
Author Organization [facility] Address [address] [place] [address] [place] [address] Phone Care Team Providers Care Cotton Classer Name Role Phone Self-Referred, Patient Unavailable Unavailab Benito Morrow MD, MPH Unavailable [phone] Jeanne Killian MD Primary Care Provider [phone] Puma Kang MD, MPH Unavailable Eric Stevenson MD Unavailable [phone] Geri Parks MD Unavailable [phone] Encounter Details Date Type Department Care Team (Late st Contact Info) Description 04/07/2023 Procedure Pass [address] [address] Social History Tobacco Use Types Packs/Day Years Used Date Smoking Tobacco: Never Smokeless Tobacco: Never Alcohol Use Standard Drinks/Week Comments No 0 (1 standard drink = 0.6 oz pur e alcohol) Education Answer Date Recorded Are you interested in more education? Not on robinson e 07/09/2022 Are you concerned about learning? Not on file 07/09/2022 No 07/09/2022 No 07/09/2022 Digital Access Answer Date Recorded No 08/09/2022 No 08/09/2022 Reliable internet access at home? Not on file 08/09/2022 Device with a working camera? Not on file Comments No Sex and Gender Information Value Date Recorded Sex Assigned at Not on file Legal Sex Female 2:48 PM EDT Gender Identity Not on file Sexual Orientation Not on file documented as of this encounter Plan of Treatment Upcoming Encounters Date Type Department Care Team (Late st Contact Info) Description 04/04/2025 1:00 PM EST Office Visit [facility] [address] [place] [address] Benito Mcconnell MD, MPH [address] [place] [address] [address] [place] [address] [email or web address] documented as of this encounter Visit Diagnoses Not on filedocumented in this encounter Care Teams Cotton Classer Relationship Specialty Start Date End Date Jeanne Killian MD [address] [facility] [place] [address] PCP - General Internal Medicine 01/20/16 Self-Referred, Patient 12/29/15 Benito Mcconnell MD, MPH [address] [place] [address] [address] [place] [address] BRISA@[email or web address] Primary Oncologist Urology 12/29/15 Puma Kang MD, MPH [address] [place] [address], [facility]1- L2 [place] [address] ROSANNA@[facility] Radiation Oncology 02/06/16 Eric Stevenson MD [address] [place] [address], [address] [place] [address] Urology 02/06/16 Geri Parks MD [address] [place] [address] for Oncology, [address] [address] [email or web address] Primary Oncologist Oncology 02/06/16 documented as of this encounter Additional Source Comments The information contained in this document represents components of the legal health record. It is not the complete legal health record.[facility]
--- OUTSIDE RECORDS SUMMARY | 2024-11-28 11:53 | XMS_ITS | Encounter Summary ---
Author Organization [facility] Address [address] [place] [address] [place] [address] Phone Care Team Providers Care Power Regulator Name Role Phone Self-Referred, Patient Unavailable Unavailab Benito Morrow MD, MPH Unavailable [phone] Jeanne Killian MD Primary Care Provider [phone] Puma Kang MD, MPH Unavailable [phone] Eric Stevenson MD Unavailable [phone] Geri Parks MD Unavailable [phone] Encounter Details Date Type Department Care Team (Late st Contact Info) Description 06/16/2017 Procedure Pass [facility] Rad[facility] [address] [place] [address] Social History Tobacco Use Types Packs/Day Years [...] Description 04/04/2025 1:00 PM EST Office Visit [address] [address] Benito Mcconnell MD, MPH [address] [place] [address] BRISA@[email or web address] documented as of this encounter Visit Diagnoses Not on filedocumented in this encounter Care Teams Power Regulator Relationship Specialty Start Date End Date Jeanne Killian MD [address] [facility] [place] [address] PCP - General Internal Medicine 01/20/16 Self-Referred, Patient 12/29/15 Benito Mcconnell MD, MPH [address] [facility] [address] [place] [address] BRISA@[email or web address] Primary Oncologist Urology 12/29/15 Puma Kang MD, MPH [address] [facility]- [address]2 [place] [address] ROSANNA@[facility] Radiation Oncology 02/06/16 Eric Stevenson MD [address] [facility], [address] [place] [address] Urology 02/06/16 Geri Parks MD [address] [place] [address] for Oncology, [address] [address] [email or web address] Primary Oncologist Oncology 02/06/16 documented as of this encounter Additional Source Comments The information contained in this document represents components of the legal health record. It is not the complete legal health record.[facility]
--- OUTSIDE RECORDS SUMMARY | 2024-11-28 11:53 | XMS_ITS | Encounter Summary ---
Author Organization [facility] Address [address] [place] [address] Care Team Providers Care Vehicle Check In Clerk Name Role Phone Enedelia Rdz MD Primary Care Provider + Encounter Details Date Type Department Care Team (Late st Contact Info) Description 06/22/2024 Lab Requisition [facility] - Main Lab [address] [facility] [employer] [place] [address] Enedelia Rdz MD [address] [address] Chronic kidney disease, unspecified; Essential [...] AM EDT) [facility] Magnesium 1.5(L) 1.9 - 2.6 mg/dL LAB CHEMISTRY METHOD 06/22/2024 9:32 AM EDT [facility] Blood Venous blood specimen / Unknown Venipuncture / Unknown 06/22/2024 6:36 AM EDT 06/22/2024 8:02 AM EDT us Enedelia Rdz MD LAB BLOOD ORDERABLES Fin al Result [facility] [address] [place] [address], * (ABNORMAL) Vitamin B12 (06/22/2024 6:36 AM EDT) [facility] Vitamin B-12 1,115(H) 250 - 900 pcg/mL LAB CHEMISTRY METHOD 06/22/2024 9:55 AM EDT [facility] Blood Venous blood specimen / Unknown Venipuncture / Unknown 06/22/2024 6:36 AM EDT 06/22/2024 8:02 AM EDT Enedelia Rdz MD LAB BLOOD ORDERABLES Fin al Result [facility] [address] [place] [address], [place] [phone] * Folate (06/22/2024 6:36 AM EDT) [facility] Folate 9.5 2.8 - 17.0 ng/ml LAB CHEMISTRY METHOD 06/22/2024 9:55 AM EDT [facility] Blood Venous blood specimen / Unknown Venipuncture / Unknown 06/22/2024 6:36 AM EDT 06/22/2024 8:02 AM EDT Enedelia Rdz MD LAB BLOOD ORDERABLES Fin al Result [facility] [address] [place] [address], [place] [phone] * (ABNORMAL) Comprehensive metabolic panel (06/22/2024 6:36 AM EDT) [facility] Sodium 138 133 - 145 mmol/L LAB CHEMISTRY METHOD 06/22/2024 9:32 AM EDT [facility] Potassium 3.9 3.5 - 5.5 mmol/L LAB CHEMISTRY METHOD 06/22/2024 9:32 AM EDT [facility] Chloride 105 96 - 110 mmol/L LAB CHEMISTRY METHOD 06/22/2024 9:32 AM EDT [facility] CO2 28 21 - 32 mmol/L LAB CHEMISTRY METHOD 06/22/2024 9:32 AM [facility] Anion Gap 5 3 - 11 LAB CHEMISTRY METHOD 06/22/2024 9:32 AM [facility] Glucose 83 70 - 100 mg/dL LAB CHEMISTRY METHOD 06/22/2024 9:32 AM [facility] BUN 17 5 - 25 mg/dL LAB CHEMISTRY METHOD 06/22/2024 9:32 AM [facility] Creatinine 0.72 0.50 - 1.10 mg/dL LAB CHEMISTRY METHOD 06/22/2024 9:32 AM [facility] eGFR 87 >=60 mL/min/1. 73m2 LAB CHEMISTRY METHOD 06/22/2024 9:32 AM [facility] Comment:Calculation based on the Chronic Kidney Disease Epidemiology Collaboration (CKD-EPI) equation refit without adjustment for race. BUN/Creatinine Ratio 23.6 LAB CHEMISTRY METHOD 06/22/2024 9:32 AM [facility] Calcium 8.3(L) 8.5 - 10.5 mg/dL LAB CHEMISTRY METHOD 06/22/2024 9:32 AM [facility] AST (SGOT) 25 10 - 42 unit/L LAB CHEMISTRY METHOD 06/22/2024 9:32 AM [facility] ALT (SGPT) 16 10 - 60 unit/L LAB CHEMISTRY METHOD 06/22/2024 9:32 AM [facility] Alkaline Phosphatase 61 42 - 121 unit/L LAB CHEMISTRY METHOD 06/22/2024 9:32 AM [facility] Total Protein 5.2(L) 6.0 - 8.0 g/dL LAB CHEMISTRY METHOD 06/22/2024 9:32 AM [facility] Albumin 2.2(L) 3.2 - 5.0 g/dL LAB CHEMISTRY METHOD 06/22/2024 9:32 AM [facility] Total Bilirubin 1.7(H) 0.0 - 1.4 mg/dL LAB CHEMISTRY METHOD 06/22/2024 9:32 AM EDT [facility] Blood Venous blood specimen / Unknown Venipuncture / Unknown 06/22/2024 6:36 AM EDT 06/22/2024 8:02 AM EDT us Enedelia Rdz MD LAB BLOOD ORDERABLES Fin al Result [facility] [address] [place] [address], * (ABNORMAL) Complete blood count (06/22/2024 6:36 AM EDT) WBC 5.6 4.8 - 10.8 K/mcL LAB HEMETOLOGY METHOD 06/22/2024 9:02 AM [facility] RBC 2.90(L) 3.80 - 4.80 M/mcL LAB HEMETOLOGY METHOD 06/22/2024 9:02 AM [facility] Hemoglobin 9.0(L) 11.5 - 16.0 g/dL LAB HEMETOLOGY METHOD 06/22/2024 9:02 AM [facility] Hematocrit 27.1(L) 35.0 - 47.0 % LAB HEMETOLOGY METHOD 06/22/2024 9:02 AM [facility] MCV 92.2 79.0 - 98.0 FL LAB HEMETOLOGY METHOD 06/22/2024 9:02 AM [facility] MCH 30.6 27.0 - 32.0 pcg LAB HEMETOLOGY METHOD 06/22/2024 9:02 AM [facility] MCHC 33.2 32.0 - 37.0 g/dL LAB HEMETOLOGY METHOD 06/22/2024 9:02 AM [facility] RDW 13.4 11.0 - 15.0 % LAB HEMETOLOGY METHOD 06/22/2024 9:02 AM EDT [facility] Platelets 108(L) 130 - 400 K/mcL LAB HEMETOLOGY METHOD 06/22/2024 9:02 AM EDT [facility] MPV 10.2 7.0 - 11.0 FL LAB HEMETOLOGY METHOD 06/22/2024 9:02 AM EDT [facility] NRBC 0.0 <1.0 % LAB HEMETOLOGY METHOD 06/22/2024 9:02 AM EDT [facility] NRBC Absolute 0.00 <0.10 K/mcL LAB HEMETOLOGY METHOD 06/22/2024 9:02 AM EDT [facility] Blood Venous blood specimen / Unknown Venipuncture / Unknown 06/22/2024 6:36 AM EDT 06/22/2024 8:02 AM EDT us Enedelia Rdz MD LAB BLOOD ORDERABLES Fin al Result [facility] [address] [place] [address], documented in this encounter Visit Diagnoses Diagnosis Chronic kidney disease, unspecified Essential (primary) hypertension Unspecified essential hypertension Chronic obstructive pulmonary disease, unspecified (CMS/HCC V24, CMS/HCC V28) Gastro-esophageal reflux disease without esophagitis Thrombocytopenia, unspecified (CMS/HCC V24) Thrombocytopenia, unspecified documented in this encounter Care Teams Vehicle Check In Clerk Relationship Specialty Start Date End Date Enedelia Rdz MD [address] [place] [address] PCP - General Family Medicine 06/22/24 documented as of this encounter
--- OUTSIDE RECORDS SUMMARY | 2024-11-28 11:53 | XMS_ITS | Encounter Summary ---
Author Organization [facility] Address [address] [place] [address] Phone Care Team Providers Care Instructor Private Name Role Phone Self-Referred, Patient Unavailable Unavailab Benito Morrow MD, MPH Unavailable [phone] Jeanne Killian MD Primary Care Provider [phone] Puma Kang MD, MPH Unavailable [phone] Eric Stevenson MD Unavailable [phone] Geri Parks MD Unavailable [phone] Encounter Details Date Type Department Care Team (Late st Contact Info) Description 09/04/2020 Procedure Pass [facility] 20 [place] [address] Social History Tobacco Use Types Packs/Day Years [...] Description 04/04/2025 1:00 PM EST [facility] [place] [address] Benito Mcconnell MD, MPH [address] [place] [address] [address] [place] [address] BRISA@[email or web address] documented as of this encounter Visit Diagnoses Not on filedocumented in this encounter Care Teams Instructor Private Relationship Specialty Start Date End Date Jeanne Killian MD [address] [facility] [place] [address] PCP - General Internal Medicine 01/20/16 Self-Referred, Patient 12/29/15 Benito Mcconnell MD, MPH [address] [place] [address] [address] [place] [address] [email or web address] Primary Oncologist Urology 12/29/15 Puma Kang MD, MPH [address] [place] [address], [facility]1- [address] [place] [address] ROSANNA@[facility] Radiation Oncology 02/06/16 Eric Stevenson MD [address] [place] [address], [address] [place] [address] Urology 02/06/16 Geri Parks MD [address] [place] [address] for Oncology, [place] [address] [place] [address] Renea@[email or web address] Primary Oncologist Oncology 02/06/16 documented as of this encounter Additional Source Comments The information contained in this document represents components of the legal health record. It is not the complete legal health record.[facility]
--- OUTSIDE RECORDS SUMMARY | 2024-11-28 11:53 | XMS_ITS | Encounter Summary ---
Author Organization [facility] Address [address] [place] [address] Care Team Providers Care Staff Submarine Warfare Officer Name Role Phone Enedelia Rdz MD Primary Care Provider + Encounter Details Date Type Department Care Team (Late st Contact Info) Description 07/06/2024 Lab Requisition [facility] - Main Lab [address] [facility] [place] [address] Enedelia Rdz MD [address] [place] [id number] Chronic kidney disease, unspecified; Gastro-esophageal reflux disease [...] unspecified documented in this encounter Care Teams Staff Submarine Warfare Officer Relationship Specialty Start Date End Date Enedelia Rdz MD [address] [place] [address] PCP - General Family Medicine 06/22/24 documented as of this encounter
--- OUTSIDE RECORDS SUMMARY | 2024-11-28 11:53 | XMS_ITS | Encounter Summary ---
Author Organization [facility] Address [address] [place] [address] Phone Care Team Providers Care Outpatient Pharmacy Manager Name Role Phone Self-Referred, Patient Unavailable Unavailab Benito Morrow MD, MPH Unavailable [phone] Jeanne Killian MD Primary Care Provider [phone] Puma Kang MD, MPH Unavailable [phone] Eric Stevenson MD Unavailable [phone] Geri Parks MD Unavailable [phone] Encounter Details Date Type Department Care Team (Late st Contact Info) Description 09/04/2020 Procedure Pass [facility] 20 [place] [address] Social History Tobacco Use Types Packs/Day Years [...] Description 04/04/2025 1:00 PM EST [facility] [address] [place] [address] Benito Mcconnell MD, MPH [address] [place] [address] [address] [place] [address] BRISA@[email or web address] documented as of this encounter Visit Diagnoses Not on filedocumented in this encounter Care Teams Outpatient Pharmacy Manager Relationship Specialty Start Date End Date Jeanne Killian MD [address] [facility] [place] [address] PCP - General Internal Medicine 01/20/16 Self-Referred, Patient 12/29/15 Benito Mcconnell MD, MPH [address] [place] [address] [address] [place] [address] BRISA@[email or web address] Primary Oncologist Urology 12/29/15 Puma Kang MD, MPH [address] [place] [address], [facility]1- L[address] [place] [address] ROSANNA@[facility] Radiation Oncology 02/06/16 Eric Stevenson MD [address] [place] [address], [address] [place] [address] Urology 02/06/16 Geri Parks MD [address] [place] [address] for Oncology, [place] [address] [place] [address] Renea@[email or web address] Primary Oncologist Oncology 02/06/16 documented as of this encounter Additional Source Comments The information contained in this document represents components of the legal health record. It is not the complete legal health record.[facility]
--- OUTSIDE RECORDS SUMMARY | 2024-11-28 11:53 | XMS_ITS | Encounter Summary ---
Author Organization [facility] Address [address] [place] [address] Phone Care Team Providers Care Television Writer Name Role Phone Self-Referred, Patient Unavailable Unavailab Benito Morrow MD, MPH Unavailable [phone] Jeanne Killian MD Primary Care Provider Puma Kang MD, MPH Unavailable [phone] Eric Stevenson MD Unavailable [phone] Geri Parks MD Unavailable [phone] Encounter Details Date Type Department Care Team (Late st Contact Info) Description 06/04/2021 Procedure Pass [facility] 20 [place] [address] Social History Tobacco Use Types Packs/Day Years [...] Description 04/04/2025 1:00 PM EST [facility] [place] [address] Benito Mcconnell MD, MPH [address] [place] [address] [address] [place] [address] BRISA@[email or web address] documented as of this encounter Visit Diagnoses Not on filedocumented in this encounter Care Teams Television Writer Relationship Specialty Start Date End Date Jeanne Killian MD [address] [facility] [place] [address] PCP - General Internal Medicine 01/20/16 Self-Referred, Patient 12/29/15 Benito Mcconnell MD, MPH [address] [place] [address] [address] [place] [address] BRISA@[email or web address] Primary Oncologist Urology 12/29/15 Puma Kang MD, MPH [address] [place] [address], [facility]1- [address] [place] [address] ROSANAN@[facility] Radiation Oncology 02/06/16 Eric Stevenson MD [address] [place] [address], [address] [place] [address] Urology 02/06/16 Geri Parks MD [address] [place] [address] for Oncology, [place] 9 [place] [address] [email or web address] Primary Oncologist Oncology 02/06/16 documented as of this encounter Additional Source Comments The information contained in this document represents components of the legal health record. It is not the complete legal health record.[facility]
--- OUTSIDE RECORDS SUMMARY | 2024-11-28 11:53 | XMS_ITS | Encounter Summary ---
Author Organization [facility] Address [address] [place] [address] [place] [address] Phone Care Team Providers Care Restaurant Service Manager Name Role Phone Self-Referred, Patient Unavailable Unavailab Benito Morrow MD, MPH Unavailable [phone] Jeanne Killian MD Primary Care Provider Puma Kang MD, MPH Unavailable [phone] Eric Stevenson MD Unavailable [phone] Geri Parks MD Unavailable Encounter Details Date Type Department Care Team (Late st Contact Info) Description 06/16/2017 Procedure Pass [facility]'s Radiology [address] [place] [address] Social History Tobacco Use Types Packs/Day Years [...] Description 04/04/2025 1:00 PM EST Office Visit [address] [address] Benito Mcconnell MD, MPH [address] [place] [id number] [email or web address] documented as of this encounter Visit Diagnoses Not on filedocumented in this encounter Care Teams Restaurant Service Manager Relationship Specialty Start Date End Date Jeanne Killian MD [address] [facility] [place] [address] PCP - General Internal Medicine 01/20/16 Self-Referred, Patient 12/29/15 Benito Mcconnell MD, MPH [address] [facility] [address] [place] [address] [email or web address] Primary Oncologist Urology 12/29/15 Puma Kang MD, MPH 75 [facility], [address] [place] [address] [email or web address] Radiation Oncology 02/06/16 Eric Stevenson MD [address] [facility], [address] [place] [address] Urology 02/06/16 Geri Parks MD [address] [place] [address] for Oncology, [address] [address] [email or web address] Primary Oncologist Oncology 02/06/16 documented as of this encounter Additional Source Comments The information contained in this document represents components of the legal health record. It is not the complete legal health record.[facility]
--- OUTSIDE RECORDS SUMMARY | 2024-11-28 11:53 | XMS_ITS | Encounter Summary ---
Author Organization [facility] Address [address] [place] [address] Phone Care Team Providers Care Automobile Accessories Salesperson Name Role Phone Self-Referred, Patient Unavailable Unavailab Benito Morrow MD, MPH Unavailable [phone] Jeanne Killian MD Primary Care Provider Puma Kang MD, MPH Unavailable Eric Stevenson MD Unavailable [phone] Geri Parks MD Unavailable [phone] Encounter Details Date Type Department Care Team (Late st Contact Info) Description 01/03/2020 Procedure Pass [facility] [address] [place] [address] Social History Tobacco Use Types Packs/Day Years [...] Description 04/04/2025 1:00 PM EST [facility] [address] [place] [address] Benito Mcconnell MD, MPH [address] [place] [address] [address] [place] [address] [email or web address] documented as of this encounter Visit Diagnoses Not on filedocumented in this encounter Care Teams Automobile Accessories Salesperson Relationship Specialty Start Date End Date Jeanne Killian MD [address] [facility] [place] [address] PCP - General Internal Medicine 01/20/16 Self-Referred, Patient 12/29/15 Benito Mcconnell MD, MPH [address] [place] [address] [address] [place] [address] [email or web address] Primary Oncologist Urology 12/29/15 Puma Kang MD, MPH [address] [place] [address], [facility] [place] [address] [email or web address] Radiation Oncology 02/06/16 Eric Stevenson MD [address] [place] [address], [address] [place] [address] Urology 02/06/16 Geri Parks MD [address] [place] [address] for Oncology, [address] [address] [email or web address] Primary Oncologist Oncology 02/06/16 documented as of this encounter Additional Source Comments The information contained in this document represents components of the legal health record. It is not the complete legal health record.[facility]
--- OUTSIDE RECORDS SUMMARY | 2024-11-28 11:53 | XMS_ITS | Encounter Summary ---
Author Organization [facility] Address [address] [place] [address] Phone Care Team Providers Care Joint Supervisor Name Role Phone Self-Referred, Patient Unavailable Unavailab Benito Morrow MD, MPH Unavailable [phone] Jeanne Killian MD Primary Care Provider [phone] Puma Kang MD, MPH Unavailable [phone] Eric Stevenson MD Unavailable [phone] Geri Parks MD Unavailable [phone] Encounter Details Date Type Department Care Team (Late Contact Info) Description 03/05/2016 Procedure Pass [facility] Periop [address] [place] [address] Social History Tobacco Use Types Packs/Day Years [...] Description 04/04/2025 1:00 PM EST Office Visit [facility] [address] [place] [address] Benito Mcconnell MD, MPH [address] [place] [address] [email or web address] documented as of this encounter Visit Diagnoses Not on filedocumented in this encounter Care Teams Joint Supervisor Relationship Specialty Start Date End Date Jeanne Killian MD [address] [place] [address] PCP - General Internal Medicine 01/20/16 Self-Referred, Patient 12/29/15 Benito Mcconnell MD, MPH [address] [facility] [address] [place] [address] [email or web address] Primary Oncologist Urology 12/29/15 Puma Kang MD, MPH [address] [facility], [address] [place] [address] [email or web address] [email or web address] Oncology 02/06/16 Eric Stevenson MD [address] [facility], [address] [place] [address] [email or web address] Urology 02/06/16 Geri Parks MD [address] [place] [address] for Oncology, [address] [address] [email or web address] Primary Oncologist Oncology 02/06/16 documented as of this encounter Additional Source Comments The information contained in this document represents components of the legal health record. It is not the complete legal health record.[facility]
--- OUTSIDE RECORDS SUMMARY | 2024-11-28 11:53 | XMS_ITS | Encounter Summary ---
Author Organization [facility] Address [address] [place] [address] Care Team Providers Care Sanitation Truck Cleaner Name Role Phone Enedelia Rdz MD Primary Care Provider + Encounter Details Date Type Department Care Team (Late st Contact Info) Description 06/30/2024 Lab Requisition [facility] - Main Lab [address] [facility] [place] [address] Enedelia Rdz MD [address] [id number] Chronic kidney disease, unspecified; Gastro-esophageal reflux disease [...] mmol/L LAB CHEMISTRY METHOD 07/02/2024 3:00 PM [facility] Potassium 4.5 3.5 - 5.5 mmol/L LAB CHEMISTRY METHOD 07/02/2024 3:00 PM [facility] Chloride 109 96 - 110 mmol/L LAB CHEMISTRY METHOD 07/02/2024 3:00 PM [facility] CO2 22 21 - 32 mmol/L LAB CHEMISTRY METHOD 07/02/2024 3:00 PM [facility] Anion Gap 9 3 - 11 LAB CHEMISTRY METHOD 07/02/2024 3:00 PM [facility] Glucose 78 70 - 100 mg/dL LAB CHEMISTRY METHOD 07/02/2024 3:00 PM [facility] BUN 22 5 - 25 mg/dL LAB CHEMISTRY METHOD 07/02/2024 3:00 PM [facility] Creatinine 0.96 0.50 - 1.10 mg/dL LAB CHEMISTRY METHOD 07/02/2024 3:00 PM [facility] eGFR 62 >=60 mL/min/1. 73m2 LAB CHEMISTRY METHOD 07/02/2024 3:00 PM [facility] Comment:Calculation based on the Chronic Kidney Disease Epidemiology Collaboration (CKD-EPI) equation refit without adjustment for race. BUN/Creatinine Ratio 22.9 LAB CHEMISTRY METHOD 07/02/2024 3:00 PM [facility] Calcium 8.8 8.5 - 10.5 mg/dL LAB CHEMISTRY METHOD 07/02/2024 3:00 PM [facility] Blood Venous blood specimen / Unknown Venipuncture / Unknown 07/02/2024 8:30 AM EDT 07/02/2024 11:09 AM EDT Enedelia Rdz MD LAB BLOOD ORDERABLES Fin al Result [facility] [address] [place] [address], * (ABNORMAL) Complete blood count (07/02/2024 8:30 AM EDT) [facility] Signature WBC 5.5 4.8 - 10.8 K/mcL LAB HEMETOLOGY METHOD 07/02/2024 11:38 AM EDT [facility] RBC 3.20(L) 3.80 - 4.80 M/mcL LAB HEMETOLOGY METHOD 07/02/2024 11:38 AM EDT [facility] Hemoglobin 10.1(L) 11.5 - 16.0 g/dL LAB HEMETOLOGY METHOD 07/02/2024 11:38 AM T [facility] Hematocrit 30.6(L) 35.0 - 47.0 % LAB HEMETOLOGY METHOD 07/02/2024 11:38 AM EDT [facility] MCV 96.5 79.0 - 98.0 FL LAB HEMETOLOGY METHOD 07/02/2024 11:38 AM [facility] MCH 31.9 27.0 - 32.0 pcg LAB HEMETOLOGY METHOD 07/02/2024 11:38 AM [facility] MCHC 33.0 32.0 - 37.0 g/dL LAB HEMETOLOGY METHOD 07/02/2024 11:38 AM T [facility] RDW 15.5(H) 11.0 - 15.0 % LAB HEMETOLOGY [facility] 150 130 - 400 K/mcL LAB HEMETOLOGY METHOD 07/02/2024 11:38 AM [facility] MPV 10.8 7.0 - 11.0 FL LAB HEMETOLOGY METHOD 07/02/2024 11:38 AM EDT [facility] NRBC 0.0 <1.0 % LAB HEMETOLOGY METHOD 07/02/2024 11:38 AM EDT [facility] NRBC Absolute 0.00 <0.10 K/mcL LAB HEMETOLOGY METHOD 07/02/2024 11:38 AM EDT [facility] Blood Venous blood specimen / Unknown Venipuncture / Unknown 07/02/2024 8:30 AM EDT 07/02/2024 11:09 AM EDT Enedelia Rdz MD LAB BLOOD ORDERABLES Fin al Result [facility] [address] [place] [address], documented in this encounter Visit Diagnoses Diagnosis Chronic kidney disease, unspecified Gastro-esophageal reflux disease without esophagitis Essential (primary) hypertension Unspecified essential hypertension Thrombocytopenia, unspecified (CMS/HCC V24) Thrombocytopenia, unspecified documented in this encounter Care Teams Sanitation Truck Cleaner Relationship Specialty Start Date End Date Enedelia Rdz MD [address] [place] [address] PCP - General Family Medicine 06/22/24 documented as of this encounter
--- OUTSIDE RECORDS SUMMARY | 2024-11-28 11:53 | XMS_ITS | Clinical Summary ---
Author Organization [facility] Address [address] [place] [address] Phone Care Team Providers Care Lumber Tallier Name Role Phone Self-Referred, Patient Unavailable Unavailab Benito Morrow MD, MPH Unavailable [phone] Jeanne Killian MD Primary Care Provider [phone] Puma Kang MD, MPH Unavailable [phone] Eric Stevenson MD Unavailable [phone] Geri Parks MD Unavailable [phone] Allergies Active Allergy Reactions Criticality Noted Date Comments Avelox (Moxifloxacin) Other (See Comments) Medium 02/12 tachycardia Cefotetan 01/19/2016 tachcardia Ceftin (Cefuroxime Axetil) 01/19/2016 tachycardia Cipro (Ciprofloxacin) 01/19/2016 tachycardia Fosamax (Alendronate) 01/19/2016 Severe Heartburn Latex, Natural Rubber 01/19/2016 Skin Blisters Medications budesonide-formo terol (SYMBICORT) 80-4.5 mcg/actuation inhaler Inhale 2 puffs into the lungs 2 (two) times a day. Active furosemide (LASIX) 20 MG tablet Take 20 mg by mouth daily. Active propranolol (INDERAL) 20 MG tablet Take 20 mg by mouth 2 (two) times a day. Active sertraline (ZOLOFT) 50 MG tablet Take 50 mg by mouth daily. Active omeprazole (PRILOSEC) 20 mg TbEC Take 20 mg by mouth daily before breakfast. Active multivitamins capsule Take 1 capsule by mouth daily. Active GLUCOSAMINE SULFATE DIPOT CHLR (GLUCOSAMINE SULFATE DIPOTASSIUM CHLORIDE) 1,000 mg Cap capsule Take 100 mg by mouth daily. Active acetaminophen (TYLENOL) 325 mg tablet Take 2 tablets (650 mg total) by mouth every 4 (four) hours as needed for mild pain. 20 tablet 6 Active amoxicillin (AMOXIL) 500 MG capsule Take 500 mg by mouth 2 (two) times a day. Reported on 07/12/2016 Active lisinopril (PRINIVIL,ZESTRI L) 20 MG tablet Take 30 mg by mouth daily. Active cholecalciferol (VITAMIN D3) 10,000 unit tablet Take 10,000 Units by mouth daily. Active Lactobac no.41-Bifidobact no.7 70 mg (3 billion cell) Cap Take by mouth. Active INCRUSE ELLIPTA 62.5 mcg/actuation inhalation 0 Active amoxicillin-clav ulanate (AUGMENTIN) 875-125 mg per tablet Take 1 tablet by mouth 2 (two) times a day. 0 Active FLOVENT HFA 110 mcg/actuation inhaler 1 Active lisinopril (PRINIVIL,ZESTRI L) 30 MG tablet 2 Active omeprazole (PRILOSEC) 20 MG capsule 2 Active fluticasone/mauri nterol (BREO ELLIPTA INHL) Inhale into the lungs. 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, N0, cM0) - Signed by Puma Kang MD, MPH on 02/08/2016 Encounters Date Type Department Care Team Description 10/03/2024 12:09 PM EDT - 10/03/2024 11:59 PM EDT Hospital Encounter [facility] [address] [address] Benito Mcconnell MD, MPH Discharge Disposition: Home or Self Care 04/05/2024 Procedure Pass [facility] [address] [place] [address] from Last 3 Months Family History Medical History Relation Comments Colon cancer Mother Melanoma Sister 1 Breast cancer Sister 2 Endometrial hyperplasia - atypical Sister 3 Bladder Cancer Neg Hx Relation Status Comments Mother Sister 1 Sister 2 Sister 3 Social History Tobacco Use Types Packs/Day Years Used Date Smoking Tobacco: Never Smokeless Tobacco: Never Tobacco Cessation:Counseling Given: Not Answered Alcohol Use Standard Drinks/Week Comments No 0 [...] on file Sexual Orientation Not on file Last Filed Vital Signs Vital Sign Reading Time Taken Comments Blood Pressure 127/58 04/05/2024 1:08 PM EST Pulse 68 04/05/2024 1:08 PM EST Temperature 36.8 C (98.3 F) 03/22/2016 3:12 PM EST Respiratory Rate 18 02/23/2018 7:58 AM EST Oxygen Saturation 96% 04/05/2024 1:08 PM EST Inhaled Oxygen Concentration - - Weight 73.9 kg (163 lb) 04/07/2023 1:32 PM EST Height 160 cm (5' 3 ) 04/07/2023 1:32 PM EST Body Mass Index 28.87 04/07/2023 1:32 PM EST Plan of Treatment Upcoming Encounters Date Type Department Care Team (Late st Contact Info) Description 04/04/2025 1:00 PM EST Office Visit [facility] Multispecialty [address] [place] [address] Benito Mcconnell MD, MPH [address] [place] [id number] [email or web address] Health Maintenance Due Date Last Done Comments Adult Td,Tdap Booster 1950 LIPID PANEL 1948 DEPRESSION SCREENING 1960 HEPATITIS C SCREENING 1966 ZOSTER VACCINES (1 of 2) 08/22/1967 OSTEOPOROSIS SCREENING INITIAL (ONE-TIME) 2013 PNEUMOCOCCAL VACCINES (50+ years) (3 of 3 - PCV) 10/05/2015 10/04/2014, 11/28/2009 POTASSIUM LEVEL 01/17/2021 01/18/2020, 02/11, 01/19/2016 INFLUENZA VACCINE (#1) 2024 , 11/25/2022, 12/13/2021, Additional history exists COVID-19 VACCINE ( season) 2024 01/07/2024, 03/03/2023, 12/22/2021, Additional history exists CREATININE LEVEL 10/03/2025 10/03/2024, , 03/04/2022, Additional history exists RSV VACCINE Completed 02/16/2023 SMOKING STATUS SCREENING (Once After 26 Yrs) Completed 04/05/2024 HEPATITIS A VACCINES Aged Out No long er eligible based on patient's age to complete this topic HIB VACCINES Aged Out No longer eligi ble based on patient's age to complete this topic MENINGOCOCCAL VACCINES (ACWY) Aged Out No longer eligible based on patient's age to complete this topic MENINGOCOCCAL VACCINES (B) Aged Out N o longer eligible based on patient's age to complete this topic Medical Devices Not on file Procedures Procedure Name Priority Date/Time Associated Diagnosis Comments CT ABDOMEN/PELVIS (UROGRAM) WITH AND WITHOUT CONTRAST Routine 10/03/2024 1:25 PM EDT Malignant 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 Status post right nephroureterectomy with no CT evidence of metastatic or recurrent bladder urothelial carcinoma. 2. No CT evidence of metastatic breast cancer. 3. 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 Now s/p BCG and Interferon x 6 And then maintenance for 2 years. TECHNIQUE: Multidetector-row CT of the abdomen and pelvis was performed before and after administration of intravenous contrast using tailored dose modulation techniques. Images were reconstructed in the axial, coronal, and sagittal planes. COMPARISON: Prior CTs from 2021 and 2023 FINDINGS: Lower Chest: The lung bases are clear. The heart is slightly enlarged. Liver: Normal. No focal lesions. There is occlusion of the portal vein with cavernous transformation. There are numerous collaterals including GE junction short gastric and splenorenal shunts suggesting portal hypertension tension Biliary: Status post cholecystectomy. No evidence of intra or extrahepatic bile duct dilatation. Spleen: There is borderline splenomegaly and 2 hypodense well-circumscribed lesions in the lower pole likely representing cysts, stable Pancreas: Normal. No masses or ductal dilatation. Adrenal Glands: Normal. No nodules. Kidneys/Ureters: Status post right nephro ureterectomy. The left kidney has a punctate calcification in the upper pole and a 1.7 cm simple cyst there is no evidence of hydronephrosis or suspicious renal mass. Pelvic Organs/Bladder: The bladder has a normal CT appearance. The uterus has a normal configuration on a see no adnexal masses. Bowel: There is no evidence of obstruction. Incidental note is made of colonic diverticulosis without diverticulitis. Peritoneum/Retroperitoneum: Normal. No masses, pneumoperitoneum, or fluid. Lymph Nodes: I see no pathologic lymphadenopathy. Vessels: No abdominal aortic aneurysm. Multiple varices a spleno renal shunt suggesting portal hypertension. Bones/Soft Tissues: There is scoliosis and degenerative change of the spine. See no suspicious bony lesions. Procedure Note Nolberto Piedra MD - 10/03/2024 CT ABDOMEN/PELVIS (UROGRAM) WITH AND WITHOUT CONTRAST Referring clinician's provided indication for this examination in Epic: *Bladder cancer, monitor, noninvasive, high risk Review of the Electronic Medical Record reveals an additional historyof:history of breast cancer and now s/p right nephroureterectomy forureteral T2 urothelial carcinoma (12/2014) and with recurrent N0hnph-lgdxr bladder cancer (Feb 2016) after BCG x 6. Now s/p BCG andInterferon x 6 And then maintenance for 2 years. TECHNIQUE: Multidetector-row CT of the abdomen and pelvis was performedbefore and after administration of intravenous contrast using tailoreddose modulation techniques. Images were reconstructed in the axial,coronal, and sagittal planes. COMPARISON: Prior CTs from 2021 and 2023 FINDINGS: Lower Chest: The lung bases are clear. The heart is slightly enlarged. Liver: Normal. No focal lesions. There is occlusion of the portal veinwith cavernous transformation. There are numerous collaterals including GEjunction short gastric and splenorenal shunts suggesting portalhypertension tension Biliary: Status post cholecystectomy. No evidence of intra or extrahepaticbile duct dilatation. Spleen: There is borderline splenomegaly and 2 hypodensewell-circumscribed lesions in the lower pole likely representing cysts,stable Pancreas: Normal. No masses or ductal dilatation. Adrenal Glands: Normal. No nodules. Kidneys/Ureters: Status post right nephro ureterectomy. The left kidneyhas a punctate calcification in the upper pole and a 1.7 cm simple cystthere is no evidence of hydronephrosis or suspicious renal mass. Pelvic Organs/Bladder: The bladder has a normal CT appearance. The uterushas a normal configuration on a see no adnexal masses. Bowel: There is no evidence of obstruction. Incidental note is made ofcolonic diverticulosis without diverticulitis. Peritoneum/Retroperitoneum: Normal. No masses, pneumoperitoneum, orfluid. Lymph Nodes: I see no pathologic lymphadenopathy. Vessels: No abdominal aortic aneurysm. Multiple varices a spleno renalshunt suggesting portal hypertension. Bones/Soft Tissues: There is scoliosis and degenerative change of thespine. See no suspicious bony lesions. IMPRESSION: 1. Status post right nephroureterectomy with no CT evidence of metastaticor recurrent bladder urothelial carcinoma. 2. No CT evidence of metastatic breast cancer. 3. Chronic portal vein occlusion with cavernous transformation andnumerous varices suggesting portal hypertension. Benito Mcconnell MD, MPH IMG CT ABD/PELVIS Final R esult * (ABNORMAL) POCT Creatinine/eGFR (10/03/2024 1:02 PM EDT) Pathologist [facility] CRE POC 1.2 0.5 - 1.2 mg/dL [facility] CT & MRI SUITE EGFR POC 47(L) >59 mL/min/1.[address] [facility] [address] [facility] MRI SUITE Comment:Estimated glomerular filtration rate calculated using the CKD-EPI refit equation. 10/03/2024 1:02 PM EDT 10/03/2024 1:06 PM EDT Benito Mcconnell MD, MPH POINT OF CARE TEST ORDERA BLES Final Result [facility] CT & MRI [address] [place] [id number] * (ABNORMAL) Basic metabolic panel (01/18/2020 10:12 AM EST) Pathologist [facility] SODIUM 139 136 - 145 mmol/L [facility] POTASSIUM 4.4 3.4 - 5.1 mmol/L [facility] CHLORIDE 104 98 - 107 mmol/L [facility] CO2 28 22 - 31 mmol/L [facility] BUN 24(H) 6 - 23 mg/dL [facility] Comment:VERIFIED CREATININE 1.06 0.50 - 1.20 mg/dL [facility] GLUCOSE 101(H) 70 - 100 mg/dL [facility] CALCIUM 9.4 8.8 - 10.7 mg/dL [facility] EGFR 53(L) >59 mL/min/1.7 3m2 [facility] Comment:Estimated glomerular filtration rate calculated using the CKD-EPI equation. ANION GAP 7 7 - 17 mmol/L [facility] 01/18/2020 10:1 2 AM EST 01/18/2020 10:18 AM EST Lilia Sellers PA-C LAB BLOOD ORDERABL ES Final Result [facility] [address] [place] [address] from Last 3 Months or Most Recently Relevant to Health Maintenance Insurance MEDICARE PART A & B Member Subscriber Plan / Payer (Ef fective 2018-Present) Name:Nayeli Fofana Member ID:[id number] Relation to Subscriber:Self Name:Nayeli Fofana Subscriber ID:[id number] Payer ID:[id number] Group ID:Not on file Type:Medicare Address: [facility] [employer] [facility]. [address] [place] [address] [employer] MEDEX SUPPLEMENT MEDICARE PART A & B [employer] MEDEX SUPPLEMENT MEDICARE PART A & B [employer] MEDEX SUPPLEMENT MEDICARE PART A & B [employer] MEDEX SUPPLEMENT MEDICARE PART A & B [employer] MEDEX SUPPLEMENT MEDICARE PART A & B [employer] MEDEX SUPPLEMENT MEDICARE PART A & B [employer] CROSS MEDEX SUPPLEMENT MEDICARE PART A & B [employer] CROSS MEDEX SUPPLEMENT MEDICARE PART A & B [employer] CROSS MEDEX SUPPLEMENT Care Teams Lumber Tallier Relationship Specialty Start Date End Date Jeanne Killian MD [address] [facility] [place] [address] PCP - General Internal Medicine 01/20/16 Self-Referred, Patient 12/29/15 Benito Mcconnell MD, MPH [address] [facility] [address] [place] [address] [email or web address] Primary Oncologist Urology 12/29/15 Puma Kang MD, MPH [address] [facility], [address] [place] [address] [email or web address] Radiation Oncology 02/06/16 Eric Stevenson MD [address] [facility], [address] [place] [address] Urology 02/06/16 Geri Parks MD [address] [place] [address] for Oncology, [address] [place] [address] [email or web address] Primary Oncologist Oncology 02/06/16 Additional Source Comments The information contained in this document represents components of the legal health record. It is not the complete legal health record.[facility]
--- OUTSIDE RECORDS SUMMARY | 2024-11-28 11:53 | XMS_ITS | Encounter Summary ---
Author Organization [facility] Address [address] [place] [address] [place] [address] Phone Care Team Providers Care Planning Analyst Name Role Phone Self-Referred, Patient Unavailable Unavailab Benito Morrow MD, MPH Unavailable [phone] Jeanne Killian MD Primary Care Provider [phone] Puma Kang MD, MPH Unavailable [phone] Eric Stevenson MD Unavailable [phone] Geri Parks MD Unavailable [phone] Encounter Details Date Type Department Care Team (Late st Contact Info) Description 04/05/2024 Procedure Pass [address] [address] Social History Tobacco Use Types Packs/Day Years [...] Description 04/04/2025 1:00 PM EST Office Visit [facility] Multispecialty [address] [place] [address] Benito Mcconnell MD, MPH [address] [place] [address] [address] [place] [address] [email or web address] documented as of this encounter Visit Diagnoses Not on filedocumented in this encounter Care Teams Planning Analyst Relationship Specialty Start Date End Date Jeanne Killian MD [address] [facility] [place] [address] PCP - General Internal Medicine 01/20/16 Self-Referred, Patient 12/29/15 Benito Mcconnell MD, MPH [address] [place] [address] [address] [place] [address] [email or web address] Primary Oncologist Urology 12/29/15 Puma Kang MD, MPH [address] [place] [address], [facility] [place] [address] [email or web address] Radiation Oncology 02/06/16 Eric Stevenson MD [address] [place] [address], [address] [place] [address] Urology 02/06/16 Geri Parks MD [address] [place] [address] for Oncology, [address] [address] [email or web address] Primary Oncologist Oncology 02/06/16 documented as of this encounter Additional Source Comments The information contained in this document represents components of the legal health record. It is not the complete legal health record.[facility]
--- OUTSIDE RECORDS SUMMARY | 2024-11-28 11:53 | XMS_ITS | Encounter Summary ---
Author Organization [facility] Address [address] [place] [address] [place] [address] Phone Care Team Providers Care Clinical Sciences Professor Name Role Phone Self-Referred, Patient Unavailable Unavailab Benito Morrow MD, MPH Unavailable [phone] Jeanne Killian MD Primary Care Provider [phone] Puma Kang MD, MPH Unavailable [phone] Eric Stevenson MD Unavailable [phone] Geri Parks MD Unavailable [phone] Encounter Details Date Type Department Care Team (Late st Contact Info) Description 04/07/2023 Procedure Pass [address] [address] Social History Tobacco Use Types Packs/Day Years [...] Description 04/04/2025 1:00 PM EST Office Visit [facility] Multispecialty [address] [place] [address] Benito Mcconnell MD, MPH [address] [place] [address] [address] [place] [address] [email or web address] documented as of this encounter Visit Diagnoses Not on filedocumented in this encounter Care Teams Clinical Sciences Professor Relationship Specialty Start Date End Date Jeanne Killian MD [address] [facility] [place] [address] PCP - General Internal Medicine 01/20/16 Self-Referred, Patient 12/29/15 Benito Mcconnell MD, MPH [address] [place] [address] [address] [place] [address] [email or web address] Primary Oncologist Urology 12/29/15 Puma Kang MD, MPH [address] [place] [address], [facility] [place] [address] ROSANNA@[email or web address] Radiation Oncology 02/06/16 Eric Stevenson MD [address] [place] [address], [address] [place] [address] Urology 02/06/16 Geri Parks MD [address] [place] [address] for Oncology, [address] [address] [email or web address] Primary Oncologist Oncology 02/06/16 documented as of this encounter Additional Source Comments The information contained in this document represents components of the legal health record. It is not the complete legal health record.[facility]
--- OUTSIDE RECORDS SUMMARY | 2024-11-28 11:53 | XMS_ITS | Encounter Summary ---
Author Organization [facility] Address [address] [place] [address] Phone Care Team Providers Care Shipping Track Supervisor Name Role Phone Self-Referred, Patient Unavailable Unavailab Benito Morrow MD, MPH Unavailable [phone] Jeanne Killian MD Primary Care Provider [phone] Jeanne Killian MD Primary Care Provider [phone] Puma Kang MD, MPH Unavailable [phone] Eric Stevenson MD Unavailable [phone] Geri Parks MD Unavailable [phone] Encounter Details Date Type Department Care Team (Late st Contact Info) Description 01/19/2016 Procedure Pass [facility] [address] [place] [address] Social History Tobacco Use Types Packs/Day Years [...] Description 04/04/2025 1:00 PM EST [facility] [address] Benito Mcconnell MD, MPH [address] [place] [address] BRISA@[email or web address] documented as of this encounter Visit Diagnoses Not on filedocumented in this encounter Care Teams Shipping Track Supervisor Relationship Specialty Start Date End Date Jeanne Killian MD [address] [facility] [address] [place] [address] PCP - General Internal Medicine 01/20/16 Jeanne Killian MD [address] [facility] [address] [place] [address] PCP - General Internal Medicine 01/19/16 01/19/16 Self-Referred, Patient 12/29/15 Benito Mcconnell MD, MPH [address] [place] [address] [address] [place] [address] [email or web address] Primary Oncologist Urology 12/29/15 Puma Kang MD, MPH [address] [place] [address], [address] [place] [address] ROSANNA@[email or web address] Radiation Oncology 02/06/16 Eric Stevenson MD [address] [place] [address], [address] [place] [address] Urology 02/06/16 Geri Parks MD [address] [place] [address] for Oncology, [address] [place] [address] [email or web address] Primary Oncologist Oncology 02/06/16 documented as of this encounter Additional Source Comments The information contained in this document represents components of the legal health record. It is not the complete legal health record.[facility]
--- OUTSIDE RECORDS SUMMARY | 2024-11-28 11:53 | XMS_ITS | Encounter Summary ---
Author Organization [facility] Address [address] [place] [address] Phone Care Team Providers Care Workforce Development Specialist Name Role Phone Self-Referred, Patient Unavailable Unavailab le Benito Mcconnell MD, MPH Unavailable [phone] Jeanne Killian MD Primary Care Provider [phone] Puma Kang MD, MPH Unavailable [phone] Eric Stevenson MD Unavailable [phone] Geri Parks MD Unavailable [phone] Reason for Referral * MRI/CAT Scan - Closed Specialty Diagnoses / Procedures Referred By Contac t Referred To Contact Procedures CT Chest Outside (No Interpretation) Benito Mcconnell MD, MPH Phone: tel: fax: mailto:[email or web address] Referral ID Status Reason Start Date Expiration Date Visits Re quested Visits Authorized [id number] Closed 04/27/2017 04/27/2018 1 1 Encounter Details Date Type Department Care Team (Late st Contact Info) Description 04/27/2017 Transcribe Orders [facility] [address] [place] [phone] Mookie Barton [address] [place] [phone] [email or web address] Social History Tobacco Use Types Packs/Day Years [...] Description 04/04/2025 1:00 PM EST Office Visit [facility] [address] [place] [address] Benito Mcconnell MD, MPH [address] [place] [address] [email or web address] documented as of this encounter Results * CT Chest Outside (No Interpretation) (04/27/2017 12:00 AM EST) Narrative [facility] - 04/27/2017 12:25 PM EST This study is for PACS storage only and not for interpretation. us Benito Mcconnell MD, MPH IMG OUTSIDE IMAGING W/OUT INTERPRETATION Final Result [facility] documented in this encounter Visit Diagnoses Not on filedocumented in this encounter Care Teams Workforce Development Specialist Relationship Specialty Start Date End Date Jeanne Killian MD [address] [place] [address] PCP - General Internal Medicine 01/20/16 Self-Referred, Patient 12/29/15 Benito Mcconnell MD, MPH [address] [place] [address] [email or web address] Primary Oncologist Urology 12/29/15 Puma Kang MD, MPH [address] [place] [address], ASB[address] [place] [address] [email or web address] Radiation Oncology 02/06/16 [place] [address] [place] [address], [address] [place] [address] [email or web address] Urology 02/06/16 Geri Parks MD [address] [place] [address] for Oncology, [address] [place] [address] [email or web address] Primary Oncologist Oncology 02/06/16 documented as of this encounter Additional Source Comments The information contained in this document represents components of the legal health record. It is not the complete legal health record.[facility]
--- OUTSIDE RECORDS SUMMARY | 2024-11-28 11:53 | XMS_ITS | Encounter Summary ---
Author Organization [facility] Address [address] [place] [address] Care Team Providers Care Ammonium Hydroxide Operator Name Role Phone Enedelia Rdz MD Primary Care Provider + Encounter Details Date Type Department Care Team (Late st Contact Info) Description 06/25/2024 Lab Requisition [facility] [address] [facility] [place] [address] Enedelia Rdz MD [address] [phone] Chronic kidney disease, unspecified; Gastro-esophageal reflux disease [...] [facility] Comment:Calculation based on the Chronic Kidney Disease Epidemiology Collaboration (CKD-EPI) equation refit without adjustment for race. BUN/Creatinine Ratio 33.8 LAB [...] al Result [facility] [address] [place] [address], * (ABNORMAL) Complete blood count (06/25/2024 7:57 AM EDT) WBC 11.3(H) 4.8 - 10.8 K/mcL LAB HEMETOLOGY METHOD 06/25/2024 12:56 PM EDT [facility] RBC 3.20(L) 3.80 - 4.80 M/mcL LAB HEMETOLOGY METHOD 06/25/2024 12:56 PM EDT [facility] Hemoglobin 9.9(L) 11.5 - 16.0 g/dL LAB HEMETOLOGY METHOD 06/25/2024 12:56 PM EDT [facility] Hematocrit 30.7(L) 35.0 - 47.0 % LAB HEMETOLOGY METHOD 06/25/2024 12:56 PM EDT [facility] MCV 95.0 79.0 - 98.0 FL LAB HEMETOLOGY METHOD 06/25/2024 12:56 PM EDT [facility] MCH 30.7 27.0 - 32.0 pcg LAB HEMETOLOGY METHOD 06/25/2024 12:56 PM EDT [facility] MCHC 32.2 32.0 - 37.0 g/dL LAB HEMETOLOGY METHOD 06/25/2024 12:56 PM EDT [facility] RDW 14.1 11.0 - 15.0 % LAB HEMETOLOGY METHOD 06/25/2024 12:56 PM EDT [facility] Platelets 209 130 - 400 K/mcL LAB HEMETOLOGY METHOD 06/25/2024 12:56 PM EDT [facility] MPV 10.4 7.0 - 11.0 FL LAB HEMETOLOGY METHOD 06/25/2024 12:56 PM EDT [facility] NRBC 0.0 <1.0 % LAB HEMETOLOGY METHOD 06/25/2024 12:56 PM EDT [facility] NRBC Absolute 0.00 <0.10 K/mcL LAB HEMETOLOGY METHOD 06/25/2024 12:56 PM EDT [facility] Blood Venous blood specimen / Unknown Venipuncture / Unknown 06/25/2024 7:57 AM EDT 06/25/2024 11:58 AM EDT us Enedelia Rdz MD LAB BLOOD ORDERABLES Fin al Result [facility] [address] [place] [address], documented in this encounter Visit Diagnoses Diagnosis Chronic kidney disease, unspecified Gastro-esophageal reflux disease without esophagitis Essential (primary) hypertension Unspecified essential hypertension Thrombocytopenia, unspecified (CMS/HCC V24) Thrombocytopenia, unspecified documented in this encounter Care Teams Ammonium Hydroxide Operator Relationship Specialty Start Date End Date Enedelia Rdz MD [address] [place] [address] PCP - General Family Medicine 06/22/24 documented as of this encounter
--- OUTSIDE RECORDS SUMMARY | 2024-11-28 11:53 | XMS_ITS | Patient Health Record ---
Author Organization [facility] Address [address] [facility] [place] [address] Care Team Providers Care Tree Worker Name Role Phone Jeanne Killian MD Primary Care Provider Unavaila ble Black, Tessa Unavailable [phone] Allergies Allergen (clinical drug ingredient) Drug/Non Drug [...] 20 MG 1 tablet Orally Once a day; Duration: 30 day(s) Active Propranolol HCl 20 MG 1 tablet Orally On ce a day; Duration: 30 day(s) Active Sertraline HCl 50 MG 1 tablet Orally Onc e a day; Duration: 30 day(s) Active Lisinopril 30 MG 1 tablet Orally Once a day; Duration: 30 day(s) Active Omeprazole 20 MG 1 capsule 30 minutes before morning meal Orally Once a day; Duration: 30 day(s) Active Flovent Diskus 100 MCG/ACT [...] Problem Acquired hammer toe of right foot (0748611692785485 ) Other hammer toe(s) (acquired), right foot (M20.41) Active confirmed Problem Acquired hammer toe of left foot (5947275533642931 ) Other hammer toe(s) (acquired), left foot (M20.42) Active confirmed Problem Acquired hallux valgus (55601491) Hallux valgus (acquired), left foot (M20.12) Active confirmed Problem Acquired hallux valgus (61128702) Hallux valgus (acquired), right foot (M20.11) Active confirmed Problem Localized, primary osteoarthritis of the ankle and/or foot (065829867) Osteoarthritis of right ankle and foot (M19.071) Active confirmed Problem Localized, primary osteoarthritis of the ankle and/or foot (801849518) Osteoarthritis of left ankle and foot (M19.072) Active confirmed Plan Of Treatment No Information Insurance Providers Payer Name Payer Address Payer Phone Subscriber Number Group Number Insured Name Patient Relationship to Insured Coverage Start Date Coverage End Date Medicare National Govt Sv[employer] [address] [facility] [address] [id number] Nayeli Fofana Self - patient is the insured [employer] [address] [place] [address] [phone] [id number] Nayeli Fofana Self - patient is the insured Medical (General) History Medical History History ICD Code Arthritis asthma Gall bladder problems High blood pressure Kidney disease Liver disease Osteoporosis Measles Mumps Chicken pox Transfusions Congenitive Hepatic Fibrosis Surgical History Surgery Date(Month/Year) Breast Surgery x2 1978,2020 kidney surgery 2016 gall bladder 2013 hernia
--- OUTSIDE RECORDS SUMMARY | 2024-11-28 11:53 | XMS_ITS | Encounter Summary ---
Author Organization [facility] Address [address] [place] [address] Phone Care Team Providers Care Gas Cutter Name Role Phone Self-Referred, Patient Unavailable Unavailab le Benito Mcconnell MD, MPH Unavailable [phone] Jeanne Killian MD Primary Care Provider [phone] Puma Kang MD, MPH Unavailable Eric Stevenson MD Unavailable [phone] Geri Parks MD Unavailable [phone] Reason for Referral * MRI/CAT Scan - Closed Specialty Diagnoses / Procedures Referred By Contmigel t Referred To Contact Radiology Diagnoses Malignant neoplasm of lateral wall of urinary bladder Procedures CT 3D Reconstruction Abdomen and Pelvis Benito Mcconnell MD, MPH Phone: tel: fax: mailto:[email or web address] Referral ID Status Reason Start Date Expiration Date Visits Re quested Visits Authorized [id number] Closed 10/12/2018 10/12/2019 1 1 Encounter Details Date Type Department Care Team (Late st Contact Info) Description 10/12/2018 Ancillary Orders [facility] Urology [address] [place], [place] [address] [place] [address] Benito Mcconnell MD, MPH [address] [place] [id number] [email or web address] Malignant neoplasm of lateral wall of urinary bladder Social History Tobacco Use Types Packs/Day Years [...] Description 04/04/2025 1:00 PM EST Office Visit [address] [address] Benito Mcconnell MD, MPH [address] [place] [address] [email or web address] documented as of this encounter Results * CT 3D Reconstruction Abdomen and Pelvis (10/12/2018 1:27 PM EDT) Anatomical Region Laterality Modality Abdomen, Pelvis Computed Tomogra phy 10/12/2018 11:3 7 AM EDT Impressions 10/19/2018 9:38 AM EDT 1. No evidence of recurrent or metastatic urothelial cell carcinoma in the abdomen and pelvis status post right nephroureterectomy. 2. 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 ATTESTATION: Cory Goodson, as teaching physician have reviewed the images, if any, for this patient's exam, and if necessary, have edited the report originally created by Christy Ann. Narrative 10/19/2018 9:38 AM EDT Reason for exam (per EHR order): [MALIGNANCY] BLADDER (HX MALIG NO EVIDENCE DZ; BLADDER CANCER) Additional clinical information obtained from the EHR: 68-year-old female with recurrent high-grade bladder cancer, s/p right nephroureterectomy on 12/13/2014, BCG and interferon x 6 and multiple TURBTs. TECHNIQUE: CT scan of abdomen and pelvis was obtained before and after the administration of intravenous contrast using the CT urography protocol. Oral contrast: Water. Intravenous contrast: 100 mL of Omnipaque 350. Other medications: 200 mL of intravenous saline. 3D IMAGES: Maximum-intensity projection images (MIP) were performed to evaluate the collecting system, ureters, and bladder. COMPARISON: MR urogram 08/02/2017, CT abdomen pelvis 01/03/2017, and multiple priors FINDINGS: Lower Chest: No mass. No pleural or pericardial effusion. Nonenhancing 1.9 cm bilobed nodular simple fluid density structure in a small right fat-containing Bochdalek hernia (7:44) is unchanged since prior, and likely corresponds to a cystic structure seen on prior MRI. Liver: No new focal lesion. Unchanged ramya-hepatic cyst as seen on prior MRI. Subtle linear hypodensity along the posterior branch of right portal vein is similar to multiple priors dating back to 2016. Biliary System: No biliary ductal dilatation. Status post cholecystectomy. Pancreas: Normal. Spleen: Unchanged 7 mm cyst in the inferior pole. Again seen is splenomegaly, measuring 14.8 cm in craniocaudal dimension. Adrenal Glands: Both adrenal glands are normal. Kidneys: Status post right nephroureterectomy. No mass, stones, hydronephrosis of the left kidney. Sub-5 mm hypodensities likely represent cysts as seen on prior MRI. Renal Collecting Systems, Ureters, and Bladder: The collecting system and ureter are well-opacified and appear normal. No urothelial abnormality, wall thickening, dilatation, or stricture. The bladder is well-distended and opacified with the exception of a small portion of the anterior wall. Irregular contour of the bladder is similar to prior, and likely represent postsurgical changes from multiple tumor resections. Bowel: No wall thickening or dilatation. Small sliding hiatal hernia. Scattered colonic diverticula. Normal appendix. Mesentery, Omentum, and Peritoneum: No pneumoperitoneum or ascites. Pelvic Organs Other Than Bladder: Normal uterus. No adnexal masses. Lymph Nodes: No lymphadenopathy. Vasculature: The portal veins are small in caliber but patent, similar to prior. Enlarged and tortuous collateral vasculature in the upper abdomen, of the splenic and hemiazygos veins, similar to prior. No abdominal aortic aneurysm. Scattered atherosclerotic ossifications in the abdominal aorta. Bones and Soft Tissues: No destructive osseous lesions. Degenerative changes of the lumbar spine. Procedure Note Cory Galeana MD - 10/19/2018 Reason for exam (per EHR order): [MALIGNANCY] BLADDER (HX MALIG NOEVIDENCE DZ; BLADDER CANCER) Additional clinical information obtained from the EHR: 68-year-old femalewith recurrent high-grade bladder cancer, s/p right nephroureterectomy on12/13/2014, BCG and interferon x 6 and multiple TURBTs. TECHNIQUE: CT scan of abdomen and pelvis was obtained before and after theadministration of intravenous contrast using the CT urography protocol. Oral contrast: Water. Intravenous contrast: 100 mL of Omnipaque 350. Other medications: 200 mL of intravenous saline. 3D IMAGES: Maximum-intensity projection images (MIP) were performed toevaluate the collecting system, ureters, and bladder. COMPARISON: MR urogram 08/02/2017, CT abdomen pelvis 01/03/2017, andmultiple priors FINDINGS: Lower Chest: No mass. No pleural or pericardial effusion. Nonenhancing 1.9cm bilobed nodular simple fluid density structure in a small rightfat-containing Bochdalek hernia (7:44) is unchanged since prior, and likely correspondsto a cystic structure seen on prior MRI. Liver: No new focal lesion. Unchanged ramya-hepatic cyst as seen on priorMRI. Subtle linear hypodensity along the posterior branch of right portal veinis similar to multiple priors dating back to 2016. Biliary System: No biliary ductal dilatation. Status postcholecystectomy. Pancreas: Normal. Spleen: Unchanged 7 mm cyst in the inferior pole. Again seen issplenomegaly, measuring 14.8 cm in craniocaudal dimension. Adrenal Glands: Both adrenal glands are normal. Kidneys: Status post right nephroureterectomy. No mass, stones,hydronephrosis of the left kidney. Sub-5 mm hypodensities likely represent cysts as seenon prior MRI. Renal Collecting Systems, Ureters, and Bladder: The collecting system andureter are well-opacified and appear normal. No urothelial abnormality, wall thickening, dilatation, or stricture. The bladder is well-distended and opacified with the exception of a small portion of the anterior wall.Irregular contour of the bladder is similar to prior, and likely representpostsurgical changes from multiple tumor resections. Bowel: No wall thickening or dilatation. Small sliding hiatal hernia.Scattered colonic diverticula. Normal appendix. Mesentery, Omentum, and Peritoneum: No pneumoperitoneum or ascites. Pelvic Organs Other Than Bladder: Normal uterus. No adnexal masses. Lymph Nodes: No lymphadenopathy. Vasculature: The portal veins are small in caliber but patent, similar toprior. Enlarged and tortuous collateral vasculature in the upper abdomen, ofthe splenic and hemiazygos veins, similar to prior. No abdominal aorticaneurysm. Scattered atherosclerotic ossifications in the abdominal aorta. Bones and Soft Tissues: No destructive osseous lesions. Degenerativechanges of the lumbar spine. IMPRESSION: 1. No evidence of recurrent or metastatic urothelial cell carcinoma inthe abdomen and pelvis status post right nephroureterectomy. 2. 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 ATTESTATION: Cory Goodson, as teaching physician have reviewed theimages, if any, for this patient's exam, and if necessary, have edited the report originally created by Christy Ann. 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 documented in this encounter Care Teams Gas Cutter Relationship Specialty Start Date End Date Jeanne Killian MD [address] [place] [address] PCP - General Internal Medicine 01/20/16 Self-Referred, Patient 12/29/15 Benito Mcconnell MD, MPH [address] [place] [address] [address] [place] [address] [email or web address] Primary Oncologist Urology 12/29/15 Puma Kang MD, MPH [address] [place] [address] ASB1- L2 [place] [address] [email or web address] Radiation Oncology 02/06/16 Eric Stevenson MD [address] [facility], [address] [place] [address] Urology 02/06/16 Geri Parks MD [address] [place] [address] for Oncology, [address] [place] [address] [email or web address] Primary Oncologist Oncology 02/06/16 documented as of this encounter Additional Source Comments The information contained in this document represents components of the legal health record. It is not the complete legal health record.[facility]
--- OUTSIDE RECORDS SUMMARY | 2024-11-28 11:53 | XMS_ITS | Encounter Summary ---
Author Organization [facility] Address [address] [place] [address] [place] [address] Phone Care Team Providers Care Accounting Specialist Name Role Phone Self-Referred, Patient Unavailable Unavailab Benito Morrow MD, MPH Unavailable [phone] Jeanne Killian MD Primary Care Provider [phone] Puma Kang MD, MPH Unavailable [phone] Eric Stevenson MD Unavailable [phone] Geri Parks MD Unavailable [phone] Encounter Details Date Type Department Care Team (Late st Contact Info) Description 04/22/2017 Procedure Pass [facility] [address] [place] [address] Social History Tobacco Use Types Packs/Day Years [...] Description 04/04/2025 1:00 PM EST Office Visit [facility] [address] [place] [address] Benito Mcconnell MD, MPH [address] [place] [address] [email or web address] documented as of this encounter Visit Diagnoses Not on filedocumented in this encounter Care Teams Accounting Specialist Relationship Specialty Start Date End Date Jeanne Killian MD [address] [facility] [place] [address] PCP - General Internal Medicine 01/20/16 Self-Referred, Patient 12/29/15 Benito Mcconnell MD, MPH [address] [facility] [address] [place] [address] [email or web address] Primary Oncologist Urology 12/29/15 Puma Kang MD, MPH [address] [facility], ASB1- [address] [place] [address] [email or web address] Radiation Oncology 02/06/16 Eric Stevenson MD [address] [facility], [address] [place] [address] Urology 02/06/16 Geri Parks MD [address] [place] [address] for Oncology, [address] [address] [email or web address] Primary Oncologist Oncology 02/06/16 documented as of this encounter Additional Source Comments The information contained in this document represents components of the legal health record. It is not the complete legal health record.[facility]
--- OUTSIDE RECORDS SUMMARY | 2024-11-28 11:53 | XMS_ITS | Clinical Summary ---
Author Organization [address] Address [address] [place] [phone] Phone Care Team Providers Care Material Preparation Worker Name Role Phone Elder, Enedelia Caldwell MD Primary Care Provider + Social History Tobacco Use Types Packs/Day Years [...] Health Maintenance Due Date Last Done Comments DTaP,Tdap,and Td Vaccines (1 - Tdap) 08/22/1967 Pneumococcal Vaccine: 50+ Years (1 of 2 - PCV) 08/22/1967 Zoster Vaccines (1 of 2) 1998 Cholesterol Screening (Lipid Panel) 02/10/2022 Falls Risk Assessment 02/10/2022 Hepatitis C Screening 02/10/2022 Medicare Annual Wellness Visit 02/10/2022 Social Influencers of Health Screening 02/10/2022 RSV Immunization Adult Patients (1 - 1-dose 75+ series) 08/22/2023 Depression Screening 03/14/2024 COVID-19 Vaccine ( - season) 2024 Influenza Vaccine (#1) 2024 2, 12/09/2020, 11/19/2019, Additional history exists Hypertension/CHF/CAD Annual [...] without esophagitis Essential (primary) hypertension Thrombocytopenia, unspecified ([facility] V24) [facility] DEXA AXIAL SKELETON Routine 01/04/2018 2:07 PM EDT Age-related osteoporosis without current pathological fracture from Last 3 Months or Most Recently Relevant to Health Maintenance Results * Basic metabolic panel (07/02/2024 8:30 AM EDT) Sodium 140 133 - 145 mmol/L LAB CHEMISTRY METHOD 07/02/2024 3:00 PM EDT [facility] Potassium 4.5 3.5 - 5.5 mmol/L LAB CHEMISTRY METHOD 07/02/2024 3:00 PM EDT [facility] Chloride 109 96 - 110 mmol/L LAB CHEMISTRY METHOD 07/02/2024 3:00 PM EDT [facility] CO2 22 21 - 32 mmol/L LAB CHEMISTRY METHOD 07/02/2024 3:00 PM EDT [facility] Anion Gap 9 3 - 11 LAB CHEMISTRY METHOD 07/02/2024 3:00 PM EDT [facility] Glucose 78 70 - 100 mg/dL LAB CHEMISTRY METHOD 07/02/2024 3:00 PM EDT [facility] BUN 22 5 - 25 mg/dL LAB CHEMISTRY METHOD 07/02/2024 3:00 PM [facility] Creatinine 0.96 0.50 - 1.10 mg/dL LAB CHEMISTRY METHOD 07/02/2024 3:00 PM [facility] eGFR 62 >=60 mL/min/1. 73m2 LAB CHEMISTRY METHOD 07/02/2024 3:00 PM EDT [facility] Comment:Calculation based on the Chronic Kidney Disease Epidemiology Collaboration (CKD-EPI) equation refit without adjustment for race. BUN/Creatinine Ratio 22.9 LAB CHEMISTRY METHOD 07/02/2024 3:00 PM EDT [facility] Calcium 8.8 8.5 - 10.5 mg/dL LAB CHEMISTRY METHOD 07/02/2024 3:00 PM T [facility] Blood Venous blood specimen / Unknown Venipuncture / Unknown 07/02/2024 8:30 AM EDT 07/02/2024 11:09 AM EDT us Enedelia Rdz MD LAB BLOOD ORDERABLES Fin al Result [facility] [address] [place] [address], * JOSE LUIS DEXA AXIAL SKELETON (01/04/2018 2:07 PM EDT) Anatomical Region Laterality Modality Mammography 01/04/2018 12:5 7 PM EDT Narrative 01/04/2018 2:07 PM EDT [facility] Diagnostic Imaging Department [address] [place] [address] Patient: BONNIE ZAMBRANO Hazel Carbajal./Age/Sex: 1950 - 67 - F Unit#: [id number] Location/Status: SPDIMAM/REG CLI Mnemonic[facility] Ordering Physician: JEANNE KILLIAN MD Jose Luis Dexa Axial Skeleton - 01/04/181320 HISTORY: The patient is a 67-year-old postmenopausal female with clinical concern for metabolic bone disease. FINDINGS: Dual [...] 86% of that of age matched controls. This yields a T-score of -2.1 and a [...] the prior examination of 11/08/2014. There has been a decrease of 5.5% in bone mineral density in the right femur and a decrease of 5.0% in bone mineral density in the left femur. 2. FRAX analysis yields a 10-year probability of major osteoporotic fracture of 23.3% and a 10-year probability of hip fracture of 7.0%. Code 98680 Dictating Physician: PEE KILGORE MD Electronically Signed by: PEE KILGORE MD Dic Date/Time: 01/04/181403 Sign date/Time: 01/04/181406 Procedure Note Pee Kilgore MD - 03/02/2022 [facility] Diagnostic Imaging Department [address] [place] [address] Patient: BONNIE ZAMBRANO Hazel Barrientos/Age/Sex: 1950 - 67 - F Unit#: [id number] Location/Status: [facility] Mnemonic/Ordering Site: [facility] Ordering Physician: JEANNE KILLIAN MD [facility] Dexa Axial Skeleton - 01/04/18 [...] density of the femurs bilaterally is 0.745 gm/hl4rzghu is 74% of that of young normals [...] probability of hip fracture of 7.0%. Code 04381 Dictating Physician: PEE KILGORE MD Electronically Signed by: PEE KILGORE MD Dic Date/Time: 01/04/18 1404 Sign date/Time: 01/04/18 140 Jeanne Killian MD IMG BI PROCEDURES Final Resul t from Last 3 Months or Most Recently Relevant to Health Maintenance Insurance [address] [place] MEDICARE [facility] Care Teams Material Preparation Worker Relationship Specialty Start Date End Date Enedelia Rdz MD [address] [place] [address] PCP - General Family Medicine 06/22/24
--- OUTSIDE RECORDS SUMMARY | 2024-11-28 11:53 | XMS_ITS | Encounter Summary ---
Author Organization [facility] Address [address] [place] [address] [place] [address] Phone Care Team Providers Care Laborer Chemical Processing Name Role Phone Self-Referred, Patient Unavailable Unavailab Benito Morrow MD, MPH Unavailable [phone] Jeanne Killian MD Primary Care Provider [phone] Puma Kang MD, MPH Unavailable [phone] Eric Stevenson MD Unavailable [phone] Geri Parks MD Unavailable [phone] Encounter Details Date Type Department Care Team (Late st Contact Info) Description 04/27/2017 Procedure Pass [facility]'s Radiology [address] [place] [address] Social History Tobacco Use Types Packs/Day Years [...] Description 04/04/2025 1:00 PM EST Office Visit [address] [address] Benito Mcconnell MD, MPH [address] [place] [address] [email or web address] documented as of this encounter Visit Diagnoses Not on filedocumented in this encounter Care Teams Laborer Chemical Processing Relationship Specialty Start Date End Date Jeanne Killian MD [address] [facility] [place] [address] PCP - General Internal Medicine 01/20/16 Self-Referred, Patient 12/29/15 Benito Mcconnell MD, MPH [address] [facility] [address] [place] [address] [email or web address] Primary Oncologist Urology 12/29/15 Puma Kang MD, MPH [address] [facility], [address] [place] [address] [email or web address] Radiation Oncology 02/06/16 Eric Stevenson MD [address] [facility], [address] [place] [address] Urology 02/06/16 Geri Parks MD [address] [place] [address] for Oncology, [address] [address] [email or web address] Primary Oncologist Oncology 02/06/16 documented as of this encounter Additional Source Comments The information contained in this document represents components of the legal health record. It is not the complete legal health record.[facility]
[2024-11-28 13:07] LABS: MANUAL DIFF FLAG NO
[2024-11-28 13:14] LABS: Hematocrit 31.7 % (37.0-47.0); Hemoglobin 10.5 g/dl (12.0-16.0); Imm Gran Abs Auto 0.02 X10*3/uL (0.00-0.03); Imm Gran Pct Auto 0.5 % (0.0-0.4); Lymphocytes Absolute Auto 1.0 X10*3/uL (1.2-4.9); Mean Corpuscular HGB Conc 33.1 g/dl (31.0-35.0); Mean Corpuscular Hemoglobin 30.7 pg (27.0-33.0); Mean Corpuscular Volume 92.7 fL (80.0-98.0); NRBC Abs Auto 0.000 X10*3/uL (0.0-0.012); NRBC Pct Auto 0.0 /100WBC (0.0-0.2); Platelet Count 95 X10*3/uL (160-400); Red Blood Count 3.42 X10*6/uL (4.20-5.50); White Blood Count 4.1 X10*3/uL (4.8-10.8)
[2024-11-28 13:57] LABS: B Type Natriuretic Peptide 313 pg/mL (<100)
[2024-11-28 14:01] LABS: Alanine Aminotransferase 17 U/L (0-31); Albumin Level 3.5 g/dL (3.5-5.0); Alkaline Phosphatase 81 U/L (39-117); Anion Gap 11 (12-20); Aspartate Amino Transferase 34 U/L (5-31); Blood Urea Nitrogen 30 mg/dL (9-16); Calcium 8.7 mg/dL (8.4-10.2); Carbon Dioxide 24 mmol/L (22-29); Chloride 114 mmol/L (96-108); Cholesterol 115 mg/dL (<200); Estimated Glomerular Filt Rate 37; HDL Cholesterol 48 mg/dL (>40); Potassium 4.5 mmol/L (3.3-5.1); Sodium 144 mmol/L (135-145); Total Protein 6.1 g/dL (6.5-8.0); Triglycerides 52 mg/dL (<150)
== END 2024-11-28 09:56 | disposition home or self-care (01) ==
LOC: HO.HMGCLDS 09:55
PROVIDERS: PCP Internal Medicine; Visit Provider Internal Medicine
DX: I11.0 Hypertensive heart disease with heart failure (principal); I50.30 Unspecified diastolic (congestive) heart failure; K76.6 Portal hypertension; J44.9 Chronic obstructive pulmonary disease, unspecified
CPT/HCPCS: 36415; 80053; 80061; 83880; 84443; 85025

== ENCOUNTER 2024-11-29 13:44 | Outpatient (AMB) | payer MEDICARE, SELFPAY ==
--- NOTE | 2024-11-29 13:48 | MHC.PC.OV ---
Vital Signs 11/29/24 13:54 Height 5 ft 3 in Weight 160 lb BMI 28.3 BP 126/78 Blood Pressure Location Lt brachial Position Sitting Respiration 18 Pulse 68 Pulse Source Pulse Oximeter Temp 98.2 F Temp Source Oral Pulse Oximetry (%) 97 Oxygen Delivery Method Room Air Intake Visit Reasons: ER follow up Intake Note: Pt is here today for ER follow up visit. Allergies cefotetan Allergy (Unknown, Verified 11/29/24 13:54) unknown cefuroxime (From Ceftin) Allergy (Unknown, Verified 11/29/24 13:54) Unknown ciprofloxacin (Cipro) Allergy (Unknown, Verified 11/29/24 13:54) unknown latex Allergy (Unknown, Verified 11/29/24 13:54) Unknown moxifloxacin (From Avelox) Allergy (Unknown, Verified 11/29/24 13:54) Unknown prochlorperazine (From Compazine) Allergy (Unknown, Verified 11/29/24 13:54) Unknown alendronate sodium Adverse Reaction (Intermediate, Verified 11/29/24 13:54) Stomach Upset amlodipine Adverse Reaction (Uncoded 11/29/24 13:54) Abdominal Pain Medication List - Last Reconciled 11/29/24 by Jeanne Killian MD alendronate 70 mg PO QWEEK aspirin 81 mg PO DAILY atorvastatin 40 mg PO DAILY cholecalciferol (vitamin D3) (Vitamin D3) 25 mcg PO DAILY fluticasone furoate-vilanterol 200-25 mcg/dose (Breo Ellipta) 1 inh inhalation DAILY furosemide 20 mg PO DAILY lisinopril 1/2 orally daily; multivitamin 1 tab PO DAILY omeprazole 40 mg PO DAILY@0630 propranolol 20 mg PO BID sertraline 50 mg PO DAILY spironolactone 25 mg (1/2 x 50 mg) PO DAILY Tobacco use date assessed: 11/29/24 Fall risk assessment: No Falls in past year Last assessed Fall Risk: 11/29/24 Dental Screening Dental Screen Date: 08/01/24 HPI ER follow up HPI Details Pt presents for f/u HTN, hyperlipid, CKD 3, COPD, stable on meds. Pt started cardiac rehab and is feeling better. Patient's sister from pulmonary fibrosis and she is grieving. [facility] Medical History Hearing loss (HFpEF) heart failure with preserved ejection fraction Cirrhosis Bladder carcinoma Osteoporosis Annual physical exam Restrictive lung disease Pulmonary nodule Allergic rhinitis Atypical ductal hyperplasia of breast COPD (chronic obstructive pulmonary disease) Thrombocytopenia Aortic valve sclerosis Breast CA Depression Essential hypertension Portal hypertension Surgical History H/O colonoscopy History of esophagogastroduodenoscopy (EGD) History of surgery History of inguinal hernia repair Hx of cholecystectomy Family History Father No problems noted. Mother Colon cancer Sister Breast cancer Social History Household Members: None Household Members Other:: lives alone Housing: House Do you presently have visiting nurse or other home services: No Alcohol intake: current Alcohol intake frequency: holidays/special occasions only Patient Tobacco Use Status: Never used Tobacco e-Cigarette/Vaping Use: Never Used Second Hand Smoke Exposure: No service: No Current occupational status: retired Cognitive needs: No Hearing needs: No Vision needs: Yes Questionnaire Thrive Questionnaire Date Thrive assessed: 03/14/24 I am a: Patient What is your living situation today?: I have a steady place to live Within the past 12 months, did the food you bought not last and you didn't have the money to get more?: I choose not to answer this question Within the past 12 months, did you worry whether your food would run out before you got money to buy more?: I choose not to answer this question Do you have trouble paying for medicines?: Yes Do you have trouble getting transportation to medical appointments?: No Do you have trouble paying your heating and electricity bill?: No Do you have trouble taking care of your child, family member or friend?: No Do you have trouble with day-to-day activities such as bathing, preparing meals, shopping, managing finances, etc.?: No Are you currently unemployed and looking for a job?: No Are you interested in more education?: No Please select the resources that you would like help with: Paying for medicine Currently or been in a relationship where the following occur: I choose not to answer THRIVE Score: 0 ELENA-7 AMB Questionnaire ELENA-7 Date ELENA - 7 assessed: 03/21/24 Source: Developed by Drs. Alber Mcelroy, Rula Pantoja, Ranulfo Kirkpatrick and colleagues, with an educational laly from [employer]. Review of Systems Const All systems reviewed & are unremarkable except as noted in HPI and below ENT Reports no additional complaints Card Reports no additional complaints Resp Reports no additional complaints GI Reports no additional complaints Reports no additional complaints Physical exam (Primary Care) Vital Signs: Last Vital Signs Temp 98.2 F 11/29/24 13:54 Pulse 68 11/29/24 13:54 Resp 18 11/29/24 13:54 BP 126/78 11/29/24 13:54 Pulse Ox 97 11/29/24 13:54 Oxygen Delivery Method Room Air 11/29/24 13:54 BMI result Body Mass Index 28.3 Tobacco/Smoking Status: Tobacco use Status Tobacco use date assessed 11/29/24 11/29/24 13:49 Patient Tobacco Use Status Never used Tobacco 11/29/24 13:49 e-Cigarette/Vaping Use Never Used 11/29/24 13:49 Thrive Assessment: Date of Thrive Assessment Date Thrive assessed 03/14/24 11/29/24 13:49 Currently or been in a relationship where the following occur: I choose not to answer Const General: no acute distress HENMT Head: Yes normal to inspection Ears: hearing grossly normal bilaterally Face and sinus: Yes normal facial exam Throat: Yes posterior oropharynx normal Eyes General: appearance normal, both eyes and all related structures Neck Neck: Yes no lymphadenopathy and Yes supple Resp Effort & Inspection: normal respiratory effort Auscultation: clear to auscultation bilaterally Cardio Rhythm: regular rhythm Heart sounds: S1 normal heart sound present and S2 normal heart sound present GI Inspection: Yes normal to inspection Palpation (GI): Soft to palpation Percussion: Yes normal to percussion Auscultation: normal bowel sounds Extrem Other: 2 + pitting edema b/l Coding Level of Care Code Est Pt Level 4 (99399) Diagnoses (HFpEF) heart failure with preserved ejection fraction I50.30 Portal hypertension K76.6 COPD (chronic obstructive pulmonary disease) J44.9 Anemia D64.9 CKD stage 3a, GFR 45-59 ml/min N18.31 Assessment & Plan Assessment & Plan (1) (HFpEF) heart failure with preserved ejection fraction: Comment: Echo 06/2024 EF 69%. Mild septal asymmetric hypertrophy, [id number] aortic stenosis, cardiac catheterization not significant coronary artery disease 06/2024 Code(s): I50.30 - Unspecified diastolic (congestive) heart failure Category: Medical Plan: Continue current medications (2) Portal hypertension: Comment: Follow-up with GI with serial EGD, annual US no liver masses, splenomegaly 06/2023 Code(s): K76.6 - Portal hypertension Category: Medical Plan: Continue current medications follow-up with GI (3) COPD (chronic obstructive pulmonary disease): Comment: moderately severe chronic obstructive pulmonary disease . Code(s): J44.9 - Chronic obstructive pulmonary disease, unspecified Category: Medical Plan: Continue Breo (4) Anemia: Comment: Chronic, after chemotherapy, normal iron and B12 Code(s): D64.9 - Anemia, unspecified Category: Medical Plan: MONITOR CBC AND IRON STUDIES (5) CKD stage 3a, GFR 45-59 ml/min: Code(s): N18.31 - Chronic kidney disease, stage 3a Category: Medical Plan: MONITOR RENAL FUNCTION AND AVOID NEPHROTOXINS Orders: Orders Complete Blood Count Auto Diff 3 Months D64.9 - Anemia, unspecified, D69.6 - Thrombocytopenia, unspecified, I50.30 - Unspecified diastolic (congestive) heart failure, N18.31 - Chronic kidney disease, stage 3a Haptoglobin 3 Months D64.9 - Anemia, unspecified, D69.6 - Thrombocytopenia, unspecified, I50.30 - Unspecified diastolic (congestive) heart failure, N18.31 - Chronic kidney disease, stage 3a Comprehensive [place]. Panel Fast 3 Months D64.9 - Anemia, unspecified, D69.6 - Thrombocytopenia, unspecified, I50.30 - Unspecified diastolic (congestive) heart failure, N18.31 - Chronic kidney disease, stage 3a IRON PROFILE 3 Months D64.9 - Anemia, unspecified, D69.6 - Thrombocytopenia, unspecified, I50.30 - Unspecified diastolic (congestive) heart failure, N18.31 - Chronic kidney disease, stage 3a Reticulocyte Count 3 Months D64.9 - Anemia, unspecified, D69.6 - Thrombocytopenia, unspecified, I50.30 - Unspecified diastolic (congestive) heart failure, N18.31 - Chronic kidney disease, stage 3a
[2024-11-29 13:54] VITALS: BP 126/78; PULSE 68; RESP 18; TEMP 36.8; O2SAT 97; BMI 28.3
--- OUTSIDE RECORDS SUMMARY | 2024-11-29 15:42 | XMS_ITS | Encounter Summary ---
Author Organization [facility] Address [address] [place] [address] [place] [address] Phone Care Team Providers Care Livestock Farm Workers Name Role Phone Self-Referred, Patient Unavailable Unavailab Benito Morrow MD, MPH Unavailable [phone] Jeanne Killian MD Primary Care Provider [phone] Puma Kang MD, MPH Unavailable Eric Stevenson MD Unavailable [phone] Geri Parks MD Unavailable [phone] Encounter Details Date Type Department Care Team (Late st Contact Info) Description 04/07/2023 Procedure Pass [address] [address] Social History Tobacco Use Types Packs/Day Years [...] Description 04/04/2025 1:00 PM EST Office Visit [facility]pec[facility]ty [address] [place] [address] Benito Mcconnell MD, MPH [address] [place] [address] [address] [place] [address] [email or web address] documented as of this encounter Visit Diagnoses Not on filedocumented in this encounter Care Teams Livestock Farm Workers Relationship Specialty Start Date End Date Jeanne Killian MD [address] [place] [address] PCP - General Internal Medicine 01/20/16 Self-Referred, Patient 12/29/15 Benito Mcconnell MD, MPH [address] [place] [address] [address] [place] [address] [email or web address] Primary Oncologist Urology 12/29/15 Puma Kang MD, MPH [address] [place] [address], [facility] [place] [address] [email or web address] Radiation Oncology 02/06/16 Eric Stevenson MD [address] [place] [address], [address] [place] [address] Urology 02/06/16 Geri Parks MD [address] [place] [address] for Oncology, [address] [address] [email or web address] Primary Oncologist Oncology 02/06/16 documented as of this encounter Additional Source Comments The information contained in this document represents components of the legal health record. It is not the complete legal health record.[facility]
--- OUTSIDE RECORDS SUMMARY | 2024-11-29 15:42 | XMS_ITS | Encounter Summary ---
Author Organization [facility] Address [address] [place] [address] Phone Care Team Providers Care Neon Electrician Name Role Phone Self-Referred, Patient Unavailable Unavailab Benito Morrow MD, MPH Unavailable [phone] Jeanne Killian MD Primary Care Provider [phone] Puma Kang MD, MPH Unavailable [phone] Eric Stevenson MD Unavailable [phone] Geri Parks MD Unavailable [phone] Encounter Details Date Type Department Care Team (Late st Contact Info) Description 01/03/2020 Procedure Pass [facility] [address] [place] [address] Social History Tobacco Use Types Packs/Day Years [...] Description 04/04/2025 1:00 PM EST [facility] [address] [place] [address] Benito Mcconnell MD, MPH [address] [place] [address] [address] [place] [address] [email or web address] documented as of this encounter Visit Diagnoses Not on filedocumented in this encounter Care Teams Neon Electrician Relationship Specialty Start Date End Date Jeanne Killian MD [address] [facility] [place] [address] PCP - General Internal Medicine 01/20/16 Self-Referred, Patient 12/29/15 Benito Mcconnell MD, MPH [address] [place] [address] [address] [place] [address] [email or web address] Primary Oncologist Urology 12/29/15 Puma Kang MD, MPH [address] [place] [address], [facility] [place] [address] [email or web address] Radiation Oncology 02/06/16 Eric Stevenson MD [address] [place] [address], [address] [place] [address] Urology 02/06/16 Geri Parks MD [address] [place] [address] for Oncology, [address] [address] [email or web address] Primary Oncologist Oncology 02/06/16 documented as of this encounter Additional Source Comments The information contained in this document represents components of the legal health record. It is not the complete legal health record.[facility]
--- OUTSIDE RECORDS SUMMARY | 2024-11-29 15:42 | XMS_ITS | Encounter Summary ---
Author Organization [facility] Address [address] [place] [address] [place] [address] Phone Care Team Providers Care Fitter Armament Name Role Phone Self-Referred, Patient Unavailable Unavailab Benito Morrow MD, MPH Unavailable [phone] Jeanne Killian MD Primary Care Provider [phone] Puma Kang MD, MPH Unavailable [phone] Eric Stevenson MD Unavailable [phone] Geri Parks MD Unavailable [phone] Encounter Details Date Type Department Care Team (Late st Contact Info) Description 06/16/2017 Procedure Pass [facility]'s Radiology [address] [place] [address] Social History Tobacco Use Types Packs/Day Years [...] Description 04/04/2025 1:00 PM EST Office Visit [address] [address] Benito Mcconnell MD, MPH [address] [place] [address] [email or web address] documented as of this encounter Visit Diagnoses Not on filedocumented in this encounter Care Teams Fitter Armament Relationship Specialty Start Date End Date Jeanne Killian MD [address] [facility] [place] [address] PCP - General Internal Medicine 01/20/16 Self-Referred, Patient 12/29/15 Benito Mcconnell MD, MPH [address] [facility] [address] [place] [address] [email or web address] Primary Oncologist Urology 12/29/15 Puma Kang MD, MPH 75 [facility], [address] [place] [address] [email or web address] Radiation Oncology 02/06/16 Eric Stevenson MD [address] [facility], [address] [place] [address] Urology 02/06/16 Geri Parks MD [address] [place] [address] for Oncology, [address] [address] [email or web address] Primary Oncologist Oncology 02/06/16 documented as of this encounter Additional Source Comments The information contained in this document represents components of the legal health record. It is not the complete legal health record.[facility]
--- OUTSIDE RECORDS SUMMARY | 2024-11-29 15:42 | XMS_ITS | Encounter Summary ---
Author Organization [facility] Address [address] [place] [address] [place] [address] Phone Care Team Providers Care Support Dba Name Role Phone Self-Referred, Patient Unavailable Unavailab Benito Morrow MD, MPH Unavailable [phone] Jeanne Killian MD Primary Care Provider [phone] Puma Kang MD, MPH Unavailable [phone] Eric Stevenson MD Unavailable [phone] Geri Parks MD Unavailable [phone] Encounter Details Date Type Department Care Team (Late st Contact Info) Description 06/16/2017 Procedure Pass [facility] 70 [place] [address] Social History Tobacco Use Types Packs/Day Years [...] Description 04/04/2025 1:00 PM EST Office Visit [facility] 20 [place] [address] Benito Mcconnell MD, MPH [address] [place] [address] [email or web address] documented as of this encounter Visit Diagnoses Not on filedocumented in this encounter Care Teams Support Dba Relationship Specialty Start Date End Date Jeanne Killian MD [address] [facility] [place] [address] PCP - General Internal Medicine 01/20/16 Self-Referred, Patient 12/29/15 Benito Mcconnell MD, MPH 45 [facility] 11-3 [place] [address] [email or web address] Primary Oncologist Urology 12/29/15 Puma Kang MD, MPH [address] [facility], ASB1- L2 [place] [address] ROSANNA@[email or web address] Radiation Oncology 02/06/16 Eric Stevenson MD 3640 [facility], [address] [place] [address] Urology 02/06/16 Geri Parks MD [address] [place] [address] for Oncology, [address] [address] [email or web address] Primary Oncologist Oncology 02/06/16 documented as of this encounter Additional Source Comments The information contained in this document represents components of the legal health record. It is not the complete legal health record.[facility]
--- OUTSIDE RECORDS SUMMARY | 2024-11-29 15:42 | XMS_ITS | Encounter Summary ---
Author Organization [facility] Address [address] [place] [address] [place] [address] Phone Care Team Providers Care Pack Out Operator Name Role Phone Self-Referred, Patient Unavailable Unavailab Benito Morrow MD, MPH Unavailable [phone] Jeanne Killian MD Primary Care Provider [phone] Puma Kang MD, MPH Unavailable [phone] Eric Stevenson MD Unavailable [phone] Geri Parks MD Unavailable [phone] Encounter Details Date Type Department Care Team (Late st Contact Info) Description 04/07/2023 Procedure Pass [address] [address] Social History Tobacco Use Types Packs/Day Years [...] Description 04/04/2025 1:00 PM EST Office Visit [facility]ispec[facility]ty [address] [place] [address] Benito Mcconnell MD, MPH [address] [place] [address] 11[address] [place] [address] [email or web address] documented as of this encounter Visit Diagnoses Not on filedocumented in this encounter Care Teams Pack Out Operator Relationship Specialty Start Date End Date Jeanne Killian MD [address] [facility] [place] [address] PCP - General Internal Medicine 01/20/16 Self-Referred, Patient 12/29/15 Benito Mcconnell MD, MPH [address] [place] [address] [address] [place] [address] [email or web address] Primary Oncologist Urology 12/29/15 Puma Kang MD, MPH [address] [place] [address], [facility]1- L2 [place] [address] ROSANNA@[email or web address] Radiation Oncology 02/06/16 Eric Stevenson MD [address] [place] [address], [address] [place] [address] Urology 02/06/16 Geri Parks MD [address] [place] [address] for Oncology, [address] [address] [email or web address] Primary Oncologist Oncology 02/06/16 documented as of this encounter Additional Source Comments The information contained in this document represents components of the legal health record. It is not the complete legal health record.[facility]
--- OUTSIDE RECORDS SUMMARY | 2024-11-29 15:42 | XMS_ITS | Clinical Summary ---
Author Organization [address] Address [address] [place] [address] Phone Care Team Providers Care Senior Sql Server Database Developer Name Role Phone Elder, Enedelia Caldwell MD [...] without esophagitis Essential (primary) hypertension Thrombocytopenia, unspecified ([facility] V24) [facility] DEXA AXIAL SKELETON Routine 01/04/2018 2:07 PM EDT Age-related osteoporosis without current pathological fracture from Last 3 Months or Most Recently Relevant to Health Maintenance Results * Basic metabolic panel (07/02/2024 8:30 AM EDT) Sodium 140 133 - 145 mmol/L LAB CHEMISTRY METHOD 07/02/2024 3:00 PM EDT [facility] Potassium 4.5 3.5 - 5.5 mmol/L LAB CHEMISTRY METHOD 07/02/2024 3:00 PM EDT [facility] Chloride 109 96 - 110 mmol/L LAB CHEMISTRY METHOD 07/02/2024 3:00 PM EDT [facility] CO2 22 21 - 32 mmol/L LAB CHEMISTRY METHOD 07/02/2024 3:00 PM EDT [facility] Anion Gap 9 3 - 11 LAB CHEMISTRY METHOD 07/02/2024 3:00 PM EDT [facility] Glucose 78 70 - 100 mg/dL LAB CHEMISTRY METHOD 07/02/2024 3:00 PM EDT [facility] BUN 22 5 - 25 mg/dL LAB CHEMISTRY METHOD 07/02/2024 3:00 PM [facility] Creatinine 0.96 0.50 - 1.10 mg/dL LAB CHEMISTRY METHOD 07/02/2024 3:00 PM [facility] eGFR 62 >=60 mL/min/1. 73m2 LAB CHEMISTRY METHOD 07/02/2024 3:00 PM EDT [facility] Comment:Calculation based on the Chronic Kidney Disease Epidemiology Collaboration (CKD-EPI) equation refit without adjustment for race. BUN/Creatinine Ratio 22.9 LAB CHEMISTRY METHOD 07/02/2024 3:00 PM EDT [facility] Calcium 8.8 8.5 - 10.5 mg/dL LAB CHEMISTRY METHOD 07/02/2024 3:00 PM T [facility] Blood Venous blood specimen / Unknown Venipuncture / Unknown 07/02/2024 8:30 AM EDT 07/02/2024 11:09 AM EDT us Enedelia Rdz MD LAB BLOOD ORDERABLES Fin al Result [facility] [address] [place] [address], * JOSE LUIS DEXA AXIAL SKELETON (01/04/2018 2:07 PM EDT) Anatomical Region Laterality Modality Mammography 01/04/2018 12:5 7 PM EDT Narrative 01/04/2018 2:07 PM EDT [facility] Diagnostic Imaging Department [address] [place] [address] Patient: BONNIE ZAMBRANO Hazel Carbajal./Age/Sex: 1950 - 67 - F Unit#: [id number] Location/Status: SPDIMAM/REG CLI Mnemonic/[facility] Ordering Physician: JEANNE KILLIAN MD [...] probability of hip fracture of 7.0%. Code 95291 Dictating Physician: PEE KILGORE MD Electronically Signed by: PEE KILGORE MD Dic Date/Time: 01/04/181403 Sign date/Time: 01/04/181406 Procedure Note Pee Kilgore MD - 03/02/2022 [facility] Diagnostic Imaging Department [address] [address] Patient: BONNIE ZAMBRANO Hazel Barrientos/Age/Sex: 1950 - 67 - F Unit#: [id number] Location/Status: [facility] Mnemonic/Ordering Site: [facility] Ordering Physician: JEANNE KILLIAN MD [facility] Dexa Axial Skeleton - 01/04/18 [...] density of the femurs bilaterally is 0.745 gm/no2gczml is 74% of that of young normals [...] probability of hip fracture of 7.0%. Code 38594 Dictating Physician: PEE KILGORE MD Electronically Signed by: PEE KILGORE MD Dic Date/Time: 01/04/18 1404 Sign date/Time: 01/04/18 140 Jeanne Killian MD IMG BI PROCEDURES Final Resul t from Last 3 Months or Most Recently Relevant to Health Maintenance Insurance [address] [place] MEDICARE [facility] Care Teams Senior Sql Server Database Developer Relationship Specialty Start Date End Date Enedelia Rdz MD [address] [place] [address] PCP - General Family Medicine 06/22/24
--- OUTSIDE RECORDS SUMMARY | 2024-11-29 15:42 | XMS_ITS | Encounter Summary ---
Author Organization [facility] Address [address] [place] [address] Phone Care Team Providers Care Material Control Manager Name Role Phone Self-Referred, Patient Unavailable Unavailab Benito Morrow MD, MPH Unavailable Jeanne Killian MD Primary Care Provider [phone] Puma Kang MD, MPH Unavailable [phone] Eric Stevenson MD Unavailable [phone] Geri Parks MD Unavailable [phone] Encounter Details Date Type Department Care Team (Late st Contact Info) Description 01/03/2020 Procedure Pass [facility] 20 [place] [address] Social History Tobacco Use Types Packs/Day Years [...] Description 04/04/2025 1:00 PM EST [facility] [address] [place] [address] Benito Mcconnell MD, MPH [address] [place] [address] [address] [place] [address] [email or web address] documented as of this encounter Visit Diagnoses Not on filedocumented in this encounter Care Teams Material Control Manager Relationship Specialty Start Date End Date Jeanne Killian MD [address] [facility] [place] [address] PCP - General Internal Medicine 01/20/16 Self-Referred, Patient 12/29/15 Benito Mcconnell MD, MPH [address] [place] [address] [address] [place] [address] [email or web address] Primary Oncologist Urology 12/29/15 Puma Kang MD, MPH [address] [place] [address], [facility] L2 [place] [address] ROSANNA@[facility] Radiation Oncology 02/06/16 Eric Stevenson MD [address] [place] [address], [address] [place] [address] Urology 02/06/16 Geri Parks MD [address] [place] [address] for Oncology, [address] [address] [email or web address] Primary Oncologist Oncology 02/06/16 documented as of this encounter Additional Source Comments The information contained in this document represents components of the legal health record. It is not the complete legal health record.[facility]
--- OUTSIDE RECORDS SUMMARY | 2024-11-29 15:42 | XMS_ITS | Encounter Summary ---
Author Organization [facility] Address [address] [place] [address] Care Team Providers Care Category Director Name Role Phone Enedelia Rdz MD Primary Care Provider + Encounter Details Date Type Department Care Team (Late st Contact Info) Description 06/30/2024 Lab Requisition [facility] - Main Lab 299 [facility] [place] [address] Enedelia Rdz MD [address] [phone] Chronic kidney disease, unspecified; Gastro-esophageal reflux disease [...] mmol/L LAB CHEMISTRY METHOD 07/02/2024 3:00 PM [facility] Potassium 4.5 3.5 - 5.5 mmol/L LAB CHEMISTRY METHOD 07/02/2024 3:00 PM [facility] Chloride 109 96 - 110 mmol/L LAB CHEMISTRY METHOD 07/02/2024 3:00 PM [facility] CO2 22 21 - 32 mmol/L LAB CHEMISTRY METHOD 07/02/2024 3:00 PM [facility] Anion Gap 9 3 - 11 LAB CHEMISTRY METHOD 07/02/2024 3:00 PM [facility] Glucose 78 70 - 100 mg/dL LAB CHEMISTRY METHOD 07/02/2024 3:00 PM [facility] BUN 22 5 - 25 mg/dL LAB CHEMISTRY METHOD 07/02/2024 3:00 PM [facility] Creatinine 0.96 0.50 - 1.10 mg/dL LAB CHEMISTRY METHOD 07/02/2024 3:00 PM [facility] eGFR 62 >=60 mL/min/1. 73m2 LAB CHEMISTRY METHOD 07/02/2024 3:00 PM [facility] Comment:Calculation based on the Chronic Kidney Disease Epidemiology Collaboration (CKD-EPI) equation refit without adjustment for race. BUN/Creatinine Ratio 22.9 LAB CHEMISTRY METHOD 07/02/2024 3:00 PM [facility] Calcium 8.8 8.5 - 10.5 mg/dL LAB CHEMISTRY METHOD 07/02/2024 3:00 PM [facility] Blood Venous blood specimen / Unknown Venipuncture / Unknown 07/02/2024 8:30 AM EDT 07/02/2024 11:09 AM EDT Enedelia Rdz MD LAB BLOOD ORDERABLES Fin al Result [facility] [address] [place] [address], * (ABNORMAL) Complete blood count (07/02/2024 8:30 AM EDT) [employer] Signature WBC 5.5 4.8 - 10.8 K/mcL LAB HEMETOLOGY METHOD 07/02/2024 11:38 AM EDT [facility] RBC 3.20(L) 3.80 - 4.80 M/mcL LAB HEMETOLOGY METHOD 07/02/2024 11:38 AM EDT [facility] Hemoglobin 10.1(L) 11.5 - 16.0 g/dL LAB HEMETOLOGY METHOD 07/02/2024 11:38 AM T [facility] Hematocrit 30.6(L) 35.0 - 47.0 % LAB HEMETOLOGY METHOD 07/02/2024 11:38 AM EDT [facility] MCV 96.5 79.0 - 98.0 FL LAB HEMETOLOGY METHOD 07/02/2024 11:38 AM [facility] MCH 31.9 27.0 - 32.0 pcg LAB HEMETOLOGY METHOD 07/02/2024 11:38 AM [facility] MCHC 33.0 32.0 - 37.0 g/dL LAB HEMETOLOGY METHOD 07/02/2024 11:38 AM T [facility] RDW 15.5(H) 11.0 - 15.0 % LAB HEMETOLOGY METHOD 07/02/2024 11:[facility] Platelets 150 130 - 400 K/mcL LAB HEMETOLOGY METHOD 07/02/2024 11:38 AM [facility] MPV 10.8 7.0 - [...] Fin al Result [facility] [address] [place] [address], documented in this encounter Visit Diagnoses Diagnosis Chronic kidney disease, unspecified Gastro-esophageal reflux disease without esophagitis Essential (primary) hypertension Unspecified essential hypertension Thrombocytopenia, unspecified (CMS/HCC V24) Thrombocytopenia, unspecified documented in this encounter Care Teams Category Director Relationship Specialty Start Date End Date Enedelia Rdz MD [address] [place] [address] PCP - General Family Medicine 06/22/24 documented as of this encounter
--- OUTSIDE RECORDS SUMMARY | 2024-11-29 15:42 | XMS_ITS | Encounter Summary ---
Author Organization [facility] Address [address] [place] [address] [place] [address] Phone Care Team Providers Care Flight Coordinator Name Role Phone Self-Referred, Patient Unavailable Unavailab Benito Morrow MD, MPH Unavailable [phone] Jeanne Killian MD Primary Care Provider [phone] Puma Kang MD, MPH Unavailable [phone] Eric Stevenson MD Unavailable [phone] Geri Parks MD Unavailable [phone] Encounter Details Date Type Department Care Team (Late st Contact Info) Description 06/16/[address] [facility]iology [address] [place] [address] Social History Tobacco Use Types Packs/Day Years [...] Description 04/04/2025 1:00 PM EST Office Visit [address] [address] Benito Mcconnell MD, MPH [address] [place] [address] [email or web address] documented as of this encounter Visit Diagnoses Not on filedocumented in this encounter Care Teams Flight Coordinator Relationship Specialty Start Date End Date Jeanne Killian MD [address] [facility] [place] [address] PCP - General Internal Medicine 01/20/16 Self-Referred, Patient 12/29/15 Benito Mcconnell MD, MPH 45 [facility] [address] [place] [address] [email or web address] Primary Oncologist Urology 12/29/15 Puma Kang MD, MPH 75 [facility], ASB1- L2 [place] [address] ROSANNA@[email or web address] Radiation Oncology 02/06/16 Eric Stevenson MD 36[address] [facility], [address] [place] [address] Urology 02/06/16 Geri Parks MD [address] [place] [address] for Oncology, [address] [address] [email or web address] Primary Oncologist Oncology 02/06/16 documented as of this encounter Additional Source Comments The information contained in this document represents components of the legal health record. It is not the complete legal health record.[facility]
--- OUTSIDE RECORDS SUMMARY | 2024-11-29 15:42 | XMS_ITS | Encounter Summary ---
Author Organization [facility] Address [address] [place] [address] [place] [address] Phone Care Team Providers Care Engineer Steam Name Role Phone Self-Referred, Patient Unavailable Unavailab Benito Morrow MD, MPH Unavailable [phone] Jeanne Killian MD Primary Care Provider [phone] Puma Kang MD, MPH Unavailable [phone] Eric Stevenson MD Unavailable [phone] Geri Parks MD Unavailable [phone] Encounter Details Date Type Department Care Team (Late st Contact Info) Description 04/05/2024 Procedure Pass [address] [address] Social History Tobacco Use Types Packs/Day Years [...] Description 04/04/2025 1:00 PM EST Office Visit [employer] Multispecialty [address] [place] [address] Benito Mcconnell MD, MPH [address] [place] [address] [address] [place] [address] BRISA@[email or web address] documented as of this encounter Visit Diagnoses Not on filedocumented in this encounter Care Teams Engineer Steam Relationship Specialty Start Date End Date Jeanne Killian MD [address] [facility] [place] [address] PCP - General Internal Medicine 01/20/16 Self-Referred, Patient 12/29/15 Benito Mcconnell MD, MPH [address] [place] [address] [address] [place] [address] [email or web address] Primary Oncologist Urology 12/29/15 Puma Kang MD, MPH [address] [place] [address], [facility]1- L2 [place] [address] ROSANNA@[email or web address] Radiation Oncology 02/06/16 Eric Stevenson MD [address] [place] [address], [address] [place] [address] Urology 02/06/16 Geri Parks MD [address] [place] [address] for Oncology, [address] [address] Renea@[email or web address] Primary Oncologist Oncology 02/06/16 documented as of this encounter Additional Source Comments The information contained in this document represents components of the legal health record. It is not the complete legal health record.[facility]
--- OUTSIDE RECORDS SUMMARY | 2024-11-29 15:42 | XMS_ITS | Encounter Summary ---
Author Organization [facility] Address [address] [place] [address] [place] [address] Phone Care Team Providers Care Freight Sorter Name Role Phone Self-Referred, Patient Unavailable Unavailab Benito Morrow MD, MPH Unavailable [phone] Jeanne Killian MD Primary Care Provider Puma Kang MD, MPH Unavailable [phone] Eric Stevenson MD Unavailable [phone] Geri Parks MD Unavailable [phone] Encounter Details Date Type Department Care Team (Late st Contact Info) Description 04/27/2017 Procedure Pass [facility] Radiology 75 [place] [address] Social History Tobacco Use Types Packs/Day Years [...] Description 04/04/2025 1:00 PM EST Office Visit [address] [address] Benito Mcconnell MD, MPH [address] [place] [address] BRISA@[email or web address] documented as of this encounter Visit Diagnoses Not on filedocumented in this encounter Care Teams Freight Sorter Relationship Specialty Start Date End Date Jeanne Killian MD [address] [facility] [place] [address] PCP - General Internal Medicine 01/20/16 Self-Referred, Patient 12/29/15 Benito Mcconnell MD, MPH 45 [facility] [address] [place] [address] BRISA@[email or web address] Primary Oncologist Urology 12/29/15 Puma Kang MD, MPH 75 [facility], ASB1- L2 [place] [address] ROSANNA@[facility] Radiation Oncology 02/06/16 Eric Stevenson MD 3640 [facility], [address] [place] [address] Urology 02/06/16 Geri Parks MD [address] [place] [address] for Oncology, [address] [address] Renea@[email or web address] Primary Oncologist Oncology 02/06/16 documented as of this encounter Additional Source Comments The information contained in this document represents components of the legal health record. It is not the complete legal health record.[facility]
--- OUTSIDE RECORDS SUMMARY | 2024-11-29 15:42 | XMS_ITS | Encounter Summary ---
Author Organization [facility] Address [address] [place] [address] [place] [address] Phone Care Team Providers Care Delivery Department Supervisor Name Role Phone Self-Referred, Patient Unavailable Unavailab Benito Morrow MD, MPH Unavailable [phone] Jeanne Killian MD Primary Care Provider [phone] Puma Kang MD, MPH Unavailable [phone] Eric Stevenson MD Unavailable [phone] Geri Parks MD Unavailable [phone] Encounter Details Date Type Department Care Team (Late st Contact Info) Description 04/22/2017 Procedure Pass [facility] 70 [place] [address] Social History Tobacco Use Types Packs/Day Years [...] Description 04/04/2025 1:00 PM EST Office Visit [facility] 20 [place] [address] Benito Mcconnell MD, MPH [address] [place] [address] BRISA@[email or web address] documented as of this encounter Visit Diagnoses Not on filedocumented in this encounter Care Teams Delivery Department Supervisor Relationship Specialty Start Date End Date Jeanne Killian MD [address] [facility] [place] [address] PCP - General Internal Medicine 01/20/16 Self-Referred, Patient 12/29/15 Benito Mcconnell MD, MPH 45 [facility] [address] [place] [address] BRISA@[email or web address] Primary Oncologist Urology 12/29/15 Puma Kang MD, MPH 75 [facility], ASB1- L2 [place] [address] ROSANNA@[facility] Radiation Oncology 02/06/16 Eric Stevenson MD 3640 [facility], [address] [place] [address] Urology 02/06/16 Geri Parks MD [address] [place] [address] for Oncology, [address] [address] Renea@[email or web address] Primary Oncologist Oncology 02/06/16 documented as of this encounter Additional Source Comments The information contained in this document represents components of the legal health record. It is not the complete legal health record.[facility]
--- OUTSIDE RECORDS SUMMARY | 2024-11-29 15:42 | XMS_ITS | Encounter Summary ---
Author Organization [facility] Address [address] [place] [address] Care Team Providers Care Stitch Rubber Name Role Phone Enedelia Rdz MD Primary Care Provider + Encounter Details Date Type Department Care Team (Late st Contact Info) Description 07/06/2024 Lab Requisition [facility] - Main Lab 299 [facility] [place] [address] Enedelia Rdz MD [address] [place] [id number] Chronic kidney disease, unspecified; Gastro-esophageal reflux disease [...] unspecified documented in this encounter Care Teams Stitch Rubber Relationship Specialty Start Date End Date Enedelia Rdz MD [address] [place] [address] PCP - General Family Medicine 06/22/24 documented as of this encounter
--- OUTSIDE RECORDS SUMMARY | 2024-11-29 15:42 | XMS_ITS | Encounter Summary ---
Author Organization [facility] Address [address] [place] [address] Phone Care Team Providers Care Crime Prevention Police Officer Name Role Phone Self-Referred, Patient Unavailable Unavailab le Benito Mcconnell MD, MPH Unavailable [phone] Jeanne Killian MD Primary Care Provider [phone] Puma Kang MD, MPH Unavailable [phone] Eric Stevenson MD Unavailable [phone] Geri Parks MD Unavailable [phone] Reason for Referral * MRI/CAT Scan - Closed Specialty Diagnoses / Procedures Referred By Contac t Referred To Contact Procedures CT Chest Outside (No Interpretation) Benito Mcconnell MD, MPH Phone: tel: fax: mailto:[email or web address] Referral ID Status Reason Start Date Expiration Date Visits Re quested Visits Authorized [id number] Closed 04/27/2017 04/27/2018 1 1 Encounter Details Date Type Department Care Team (Late st Contact Info) Description 04/27/2017 Transcribe Orders [facility] [address] [place] [address] Mookie Barton [address] [place] [phone] [email or web address] Social History Tobacco Use Types Packs/Day [...] PM EST Office Visit [facility] [address] [place] [address] Benito Mcconnell MD, MPH [address] [place] [address] [email or web address] documented as of this encounter Results * CT Chest Outside (No Interpretation) (04/27/2017 12:00 AM EST) Narrative [facility] - 04/27/2017 12:25 PM EST This study is for PACS storage only and not for interpretation. us Benito Mcconnell MD, MPH IMG OUTSIDE IMAGING W/OUT INTERPRETATION Final Result [facility] documented in this encounter Visit Diagnoses Not on filedocumented in this encounter Care Teams Crime Prevention Police Officer Relationship Specialty Start Date End Date Jeanne Killian MD [address] [facility] [place] [address] PCP - General Internal Medicine 01/20/16 Self-Referred, Patient 12/29/15 Benito Mcconnell MD, MPH [address] [place] [address] [email or web address] Primary Oncologist Urology 12/29/15 Puma aKng MD, MPH [address] [place] [address], ASB1- [address] [place] [address] [email or web address] Radiation Oncology 02/06/16 [place] [address] [place] [address], [address] [place] [address] [email or web address] Urology 02/06/16 Geri Parks MD [address] [place] [address] for Oncology, Domi [address] [place] [address] [email or web address] Primary Oncologist Oncology 02/06/16 documented as of this encounter Additional Source Comments The information contained in this document represents components of the legal health record. It is not the complete legal health record.[facility]
--- OUTSIDE RECORDS SUMMARY | 2024-11-29 15:44 | XMS_ITS | Encounter Summary ---
Author Organization [facility] Address [address] [place] [address] Phone Care Team Providers Care Bingo Usher Name Role Phone Self-Referred, Patient Unavailable Unavailab Benito Morrow MD, MPH Unavailable [phone] Jeanne Killian MD Primary Care Provider [phone] Puma Kang MD, MPH Unavailable [phone] Eric Stevenson MD Unavailable [phone] Geri Parks MD Unavailable [phone] Encounter Details Date Type Department Care Team (Late st Contact Info) Description 09/04/2020 Procedure Pass [facility] 20 [place] [address] Social History Tobacco Use Types Packs/Day Years [...] Description 04/04/2025 1:00 PM EST [facility] [address] [place] [address] Benito Mcconnell MD, MPH [address] [place] [address] [address] [place] [address] [email or web address] documented as of this encounter Visit Diagnoses Not on filedocumented in this encounter Care Teams Bingo Usher Relationship Specialty Start Date End Date Jeanne Killian MD [address] [facility] [place] [address] PCP - General Internal Medicine 01/20/16 Self-Referred, Patient 12/29/15 Benito Mcconnell MD, MPH [address] [place] [address] [address] [place] [address] [email or web address] Primary Oncologist Urology 12/29/15 Puma Kang MD, MPH [address] [place] [address], [facility] [place] [address] ROSANNA@[email or web address] Radiation Oncology 02/06/16 Eric Stevenson MD [address] [place] [address], [address] [place] [address] Urology 02/06/16 Geri Parks MD [address] [place] [address] for Oncology, [place] [address] [place] [address] [email or web address] Primary Oncologist Oncology 02/06/16 documented as of this encounter Additional Source Comments The information contained in this document represents components of the legal health record. It is not the complete legal health record.[facility]
--- OUTSIDE RECORDS SUMMARY | 2024-11-29 15:44 | XMS_ITS | Patient Health Record ---
Author Organization [facility] Address [address] [facility] [place] [address] Care Team Providers Care Drill Runner Name Role Phone Jeanne Killian MD Primary Care Provider Unavaila ble Black, Tessa Unavailable [phone] Allergies Allergen (clinical drug ingredient) Drug/Non Drug [...] Problem Acquired hammer toe of right foot (8601473795133773 ) Other hammer toe(s) (acquired), right foot (M20.41) Active confirmed Problem Acquired hammer toe of left foot (3173574524208511 ) Other hammer toe(s) (acquired), left foot (M20.42) Active confirmed Problem Acquired hallux valgus (92575489) Hallux valgus (acquired), left foot (M20.12) Active confirmed Problem Acquired hallux valgus (02430275) Hallux valgus (acquired), right foot (M20.11) Active confirmed Problem Localized, primary osteoarthritis of the ankle and/or foot (875408884) Osteoarthritis of right ankle and foot (M19.071) Active confirmed Problem Localized, primary osteoarthritis of the ankle and/or foot (186204700) Osteoarthritis of left ankle and foot (M19.072) Active confirmed Plan Of Treatment No Information Insurance Providers Payer Name Payer Address Payer Phone Subscriber Number Group Number Insured Name Patient Relationship to Insured Coverage Start Date Coverage End Date Medicare National Govt Svcs Inc [address] [place] [address] [id number] Nayeli Fofana Self - patient is the insured [employer] Blue [employer] [address] [place] [address] [phone] [id number] Nayeli Fofana Self - patient is the insured Medical (General) History Medical History History ICD Code Arthritis asthma Gall bladder problems High blood pressure Kidney disease Liver disease Osteoporosis Measles Mumps Chicken pox Transfusions Congenitive Hepatic Fibrosis Surgical History Surgery Date(Month/Year) Breast Surgery x2 1978,2020 kidney surgery 2016 gall bladder 2013 hernia
--- OUTSIDE RECORDS SUMMARY | 2024-11-29 15:44 | XMS_ITS | Encounter Summary ---
Author Organization [facility] Address [address] [place] [address] Phone Care Team Providers Care Kiln Fireman Name Role Phone Self-Referred, Patient Unavailable Unavailab Benito Morrow MD, MPH Unavailable [phone] Jeanne Killian MD Primary Care Provider [phone] Jeanne Killian MD Primary Care Provider Puma Kang MD, MPH Unavailable [phone] Eric Stevenson MD Unavailable [phone] Geri Parks MD Unavailable [phone] Encounter Details Date Type Department Care Team (Late st Contact Info) Description 01/19/2016 Procedure Pass [facility] [address] [place] [address] Social History Tobacco Use Types Packs/Day Years [...] Description 04/04/2025 1:00 PM EST [facility] [address] [place] [address] Benito Mcconnell MD, MPH [address] [place] [address] [email or web address] documented as of this encounter Visit Diagnoses Not on filedocumented in this encounter Care Teams Kiln Fireman Relationship Specialty Start Date End Date Jeanne Killian MD [address] [facility] [address] [place] [address] PCP - General Internal Medicine 01/20/16 Jeanne Killian MD [address] [facility] [address] [place] [address] PCP - General Internal Medicine 01/19/16 01/19/16 Self-Referred, Patient 12/29/15 Benito Mcconnell MD, MPH [address] [place] [address] [address] [place] [address] [email or web address] Primary Oncologist Urology 12/29/15 Puma Kang MD, MPH [address] [place] [address], ASB1- [address] [place] [address] ROSANNA@[facility] Radiation Oncology 02/06/16 Eric Stevenson MD [address] [place] [address], [address] [place] [address] Urology 02/06/16 Geri Parks MD [address] [place] [address] for Oncology, [address] [place] [address] Renea@[email or web address] Primary Oncologist Oncology 02/06/16 documented as of this encounter Additional Source Comments The information contained in this document represents components of the legal health record. It is not the complete legal health record.[facility]
--- OUTSIDE RECORDS SUMMARY | 2024-11-29 15:44 | XMS_ITS | Encounter Summary ---
Author Organization [facility] Address [address] [place] [address] Phone Care Team Providers Care Customer Success Associate Name Role Phone Self-Referred, Patient Unavailable Unavailab Benito Morrow MD, MPH Unavailable [phone] Jeanne Killian MD Primary Care Provider [phone] Puma Kang MD, MPH Unavailable Eric Stevenson MD Unavailable [phone] Geri Parks MD Unavailable [phone] Encounter Details Date Type Department Care Team (Late Contact Info) Description 03/05/[address] [facility] Periop 75 [place] [address] Social History Tobacco Use Types Packs/Day Years [...] Description 04/04/2025 1:00 PM EST Office Visit [facility] 20 [place] [address] Benito Mcconnell MD, MPH [address] [place] [address] [email or web address] documented as of this encounter Visit Diagnoses Not on filedocumented in this encounter Care Teams Customer Success Associate Relationship Specialty Start Date End Date Jeanne Killian MD [address] [place] [address] PCP - General Internal Medicine 01/20/16 Self-Referred, Patient 12/29/15 Benito Mcconnell MD, MPH [address] [facility] [address] [place] [address] [email or web address] Primary Oncologist Urology 12/29/15 Puma Kang MD, MPH [address] [facility], ASB1- L2 [place] [address] [email or web address] Radiation Oncology 02/06/16 Eric Stevenson MD [address] [facility], [address] [place] [address] [email or web address] Urology 02/06/16 Geri Parks MD [address] [place] [address] for Oncology, [address] [address] [email or web address] Primary Oncologist Oncology 02/06/16 documented as of this encounter Additional Source Comments The information contained in this document represents components of the legal health record. It is not the complete legal health record.[facility]
--- OUTSIDE RECORDS SUMMARY | 2024-11-29 15:44 | XMS_ITS | Encounter Summary ---
Author Organization [facility] Address [address] [place] [address] Phone Care Team Providers Care Director On Air Name Role Phone Self-Referred, Patient Unavailable Unavailab Benito Morrow MD, MPH Unavailable [phone] Jeanne Killian MD Primary Care Provider [phone] Jeanne Killian MD Primary Care Provider Puma Kang MD, MPH Unavailable [phone] Eric Stevenson MD Unavailable [phone] Geri Parks MD Unavailable [phone] Encounter Details Date Type Department Care Team (Late st Contact Info) Description 01/19/2016 Procedure Pass [facility] 75 [place] [address] Social History Tobacco Use Types Packs/Day Years [...] PM EST [facility] [address] [place] [address] Benito Mcconnell MD, MPH [address] [place] [address] [email or web address] documented as of this encounter Visit Diagnoses Not on filedocumented in this encounter Care Teams Director On Air Relationship Specialty Start Date End Date Jeanne Killian MD [address] [facility] [address] [place] [address] PCP - General Internal Medicine 01/20/16 Jeanne Killian MD [address] [facility] [address] [place] [address] PCP - General Internal Medicine 01/19/16 01/19/16 Self-Referred, Patient 12/29/15 Benito Mcconnell MD, MPH [address] [place] [address] [address] [place] [address] [email or web address] Primary Oncologist Urology 12/29/15 Puma Kang MD, MPH [address] [place] [address], ASB1- [address]2 [place] [address] ROSANNA@[email or web address] Radiation Oncology 02/06/16 Eric Stevenson MD [address] [place] [address], [address] [place] [address] Urology 02/06/16 Geri Parks MD [address] [place] [address] for Oncology, [address] [place] [address] [email or web address] Primary Oncologist Oncology 02/06/16 documented as of this encounter Additional Source Comments The information contained in this document represents components of the legal health record. It is not the complete legal health record.[facility]
--- OUTSIDE RECORDS SUMMARY | 2024-11-29 15:44 | XMS_ITS | Encounter Summary ---
Author Organization [facility] Address [address] [place] [address] Care Team Providers Care Blanchard Grinder Operator Name Role Phone Enedelia Rdz MD Primary Care Provider + Encounter Details Date Type Department Care Team (Late st Contact Info) Description 06/22/[address] [facility] - Main Lab [address] [facility] [place] [address] Enedelia Rdz MD [address] [address] Chronic kidney disease, unspecified; Essential [...] * (ABNORMAL) Magnesium (06/22/2024 6:36 AM EDT) [facility] Magnesium 1.5(L) 1.9 - 2.6 mg/dL LAB CHEMISTRY METHOD 06/22/2024 9:32 AM EDT [facility] Blood Venous blood specimen / Unknown Venipuncture / Unknown 06/22/2024 6:36 AM EDT 06/22/2024 8:02 AM EDT us Enedelia Rdz MD LAB BLOOD ORDERABLES Fin al Result [facility] [address] [place] [address], * (ABNORMAL) Vitamin B12 (06/22/2024 6:36 AM EDT) [facility] Vitamin B-12 1,115(H) 250 - 900 pcg/mL LAB CHEMISTRY METHOD 06/22/2024 9:55 AM EDT [facility] Blood Venous blood specimen / Unknown Venipuncture / Unknown 06/22/2024 6:36 AM EDT 06/22/2024 8:02 AM EDT Enedelia Rdz MD LAB BLOOD ORDERABLES Fin al Result [facility] [address] [place] [address], [place] [phone] * Folate (06/22/2024 6:36 AM EDT) [facility] Folate 9.5 2.8 - 17.0 ng/ml LAB CHEMISTRY METHOD 06/22/2024 9:55 AM EDT [facility] Blood Venous blood specimen / Unknown Venipuncture / Unknown 06/22/2024 6:36 AM EDT 06/22/2024 8:02 AM EDT Enedelia Rdz MD LAB BLOOD ORDERABLES Fin al Result [facility] [address] [place] [address], [place] [phone] * (ABNORMAL) Comprehensive metabolic panel (06/22/2024 6:36 AM EDT) [facility] Sodium 138 133 - 145 mmol/L LAB CHEMISTRY METHOD 06/22/2024 9:32 AM EDT [facility] Potassium 3.9 3.5 - 5.5 mmol/L LAB CHEMISTRY METHOD 06/22/2024 9:32 AM EDT [facility] Chloride 105 96 - 110 mmol/L LAB CHEMISTRY METHOD 06/22/2024 9:32 AM EDT [facility] CO2 28 21 - 32 mmol/L LAB CHEMISTRY METHOD 06/22/2024 9:32 AM [facility] Anion Gap 5 3 - 11 LAB CHEMISTRY METHOD 06/22/2024 9:32 AM [facility] Glucose 83 70 - 100 mg/dL LAB CHEMISTRY METHOD 06/22/2024 9:32 AM [facility] BUN 17 5 - 25 mg/dL LAB CHEMISTRY METHOD 06/22/2024 9:32 AM [facility] Creatinine 0.72 0.50 - 1.10 mg/dL LAB CHEMISTRY METHOD 06/22/2024 9:32 AM [facility] eGFR 87 >=60 mL/min/1. 73m2 LAB CHEMISTRY METHOD 06/22/2024 9:32 AM [facility] Comment:Calculation based on the Chronic Kidney Disease Epidemiology Collaboration (CKD-EPI) equation refit without adjustment for race. BUN/Creatinine Ratio 23.6 LAB CHEMISTRY METHOD 06/22/2024 9:32 AM [facility] Calcium 8.3(L) 8.5 - 10.5 mg/dL LAB CHEMISTRY METHOD 06/22/2024 9:32 AM [facility] AST (SGOT) 25 10 - 42 unit/L LAB CHEMISTRY METHOD 06/22/2024 9:32 AM [facility] ALT (SGPT) 16 10 - 60 unit/L LAB CHEMISTRY METHOD 06/22/2024 9:32 AM [facility] Alkaline Phosphatase 61 42 - 121 unit/L LAB CHEMISTRY METHOD 06/22/2024 9:32 AM [facility] Total Protein 5.2(L) 6.0 - 8.0 g/dL LAB CHEMISTRY METHOD 06/22/2024 9:32 AM [facility] Albumin 2.2(L) 3.2 - 5.0 g/dL LAB CHEMISTRY METHOD 06/22/2024 9:32 AM [facility] Total Bilirubin 1.7(H) 0.0 - 1.4 mg/dL LAB CHEMISTRY METHOD 06/22/2024 9:32 AM EDT [facility] Blood Venous blood specimen / Unknown Venipuncture / Unknown 06/22/2024 6:36 AM EDT 06/22/2024 8:02 AM EDT us Enedelia Rdz MD LAB BLOOD ORDERABLES Fin al Result [facility] [address] [place] [address], * (ABNORMAL) Complete blood count (06/22/2024 6:36 AM EDT) WBC 5.6 4.8 - 10.8 K/mcL LAB HEMETOLOGY METHOD 06/22/2024 9:02 AM [facility] RBC 2.90(L) 3.80 - 4.80 M/mcL LAB HEMETOLOGY METHOD 06/22/2024 9:02 AM [facility] Hemoglobin 9.0(L) 11.5 - 16.0 g/dL LAB HEMETOLOGY METHOD 06/22/2024 9:02 AM [facility] Hematocrit 27.1(L) 35.0 - 47.0 % LAB HEMETOLOGY METHOD 06/22/2024 9:02 AM [facility] MCV 92.2 79.0 - 98.0 FL LAB HEMETOLOGY METHOD 06/22/2024 9:02 AM [facility] MCH 30.6 27.0 - 32.0 pcg LAB HEMETOLOGY METHOD 06/22/2024 9:02 AM [facility] MCHC 33.2 32.0 - 37.0 g/dL LAB HEMETOLOGY METHOD 06/22/2024 9:02 AM [facility] RDW 13.4 11.0 - 15.0 % LAB HEMETOLOGY METHOD 06/22/2024 9:02 AM EDT [facility] Platelets 108(L) 130 - 400 K/mcL LAB HEMETOLOGY METHOD 06/22/2024 9:02 AM EDT [facility] MPV 10.2 7.0 - 11.0 FL LAB HEMETOLOGY METHOD 06/22/2024 9:02 AM EDT [facility] NRBC 0.0 <1.0 % LAB HEMETOLOGY METHOD 06/22/2024 9:02 AM EDT [facility] NRBC Absolute 0.00 <0.10 K/mcL LAB HEMETOLOGY METHOD 06/22/2024 9:02 AM EDT [facility] Blood Venous blood specimen / Unknown Venipuncture / Unknown 06/22/2024 6:36 AM EDT 06/22/2024 8:02 AM EDT us Enedelia Rdz MD LAB BLOOD ORDERABLES Fin al Result [facility] [address] [place] [address], documented in this encounter Visit Diagnoses Diagnosis Chronic kidney disease, unspecified Essential (primary) hypertension Unspecified essential hypertension Chronic obstructive pulmonary disease, unspecified (CMS/HCC V24, CMS/HCC V28) Gastro-esophageal reflux disease without esophagitis Thrombocytopenia, unspecified (CMS/HCC V24) Thrombocytopenia, unspecified documented in this encounter Care Teams Blanchard Grinder Operator Relationship Specialty Start Date End Date Enedelia Rdz MD [address] [place] [address] PCP - General Family Medicine 06/22/24 documented as of this encounter
--- OUTSIDE RECORDS SUMMARY | 2024-11-29 15:44 | XMS_ITS | Encounter Summary ---
Author Organization [facility] Address [address] [place] [address] Care Team Providers Care Coal Hauler Name Role Phone Enedelia Rdz MD Primary Care Provider + Encounter Details Date Type Department Care Team (Late st Contact Info) Description 06/25/2024 Lab Requisition [facility] - Main Lab [address] [facility] [place] [address] Enedelia Rdz MD [address] [id number] Chronic kidney disease, unspecified; Gastro-esophageal reflux disease [...] PM [facility] Comment:Calculation based on the Chronic [...] al Result [facility] [address] [place] [address], * (ABNORMAL) Complete blood count (06/25/2024 7:57 [...] Result [facility] [address] [place] [address], documented in this encounter Visit Diagnoses Diagnosis Chronic kidney disease, unspecified Gastro-esophageal reflux disease without esophagitis Essential (primary) hypertension Unspecified essential hypertension Thrombocytopenia, unspecified (CMS/HCC V24) Thrombocytopenia, unspecified documented in this encounter Care Teams Coal Hauler Relationship Specialty Start Date End Date Enedelia Rdz MD [address] [place] [address] PCP - General Family Medicine 06/22/24 documented as of this encounter
--- OUTSIDE RECORDS SUMMARY | 2024-11-29 15:45 | XMS_ITS | Encounter Summary ---
Author Organization [facility] Address [address] [place] [address] Phone Care Team Providers Care Principal Secretary Name Role Phone Self-Referred, Patient Unavailable Unavailab Benito Morrow MD, MPH Unavailable [phone] Jeanne Killian MD Primary Care Provider [phone] Puma Kang MD, MPH Unavailable [phone] Eric Stevenson MD Unavailable [phone] Geri Parks MD Unavailable [phone] Encounter Details Date Type Department Care Team (Late st Contact Info) Description 09/04/2020 Procedure Pass [facility] [address] [place] [address] Social History Tobacco Use Types Packs/Day Years [...] Description 04/04/2025 1:00 PM EST [facility] [place] [address] Benito Mcconnell MD, MPH [address] [place] [address] [address] [place] [address] [email or web address] documented as of this encounter Visit Diagnoses Not on filedocumented in this encounter Care Teams Principal Secretary Relationship Specialty Start Date End Date Jeanne Killian MD [address] [facility] [place] [address] PCP - General Internal Medicine 01/20/16 Self-Referred, Patient 12/29/15 Benito Mcconnell MD, MPH [address] [place] [address] [address] [place] [address] [email or web address] Primary Oncologist Urology 12/29/15 Puma Kang MD, MPH [address] [place] [address], [facility]- [address] [place] [address] ROSANNA@[email or web address] Radiation Oncology 02/06/16 Eric Stevenson MD [address] [place] [address], [address] [place] [address] Urology 02/06/16 Geri Parks MD [address] [place] [address] for Oncology, [place] [address] [place] [address] [email or web address] Primary Oncologist Oncology 02/06/16 documented as of this encounter Additional Source Comments The information contained in this document represents components of the legal health record. It is not the complete legal health record.[facility]
--- OUTSIDE RECORDS SUMMARY | 2024-11-29 15:45 | XMS_ITS | Encounter Summary ---
Author Organization [facility] Address [address] [place] [address] [place] [address] Phone Care Team Providers Care Electrical Power Engineer Name Role Phone Self-Referred, Patient Unavailable Unavailab le Benito Mcconnell MD, MPH Unavailable [phone] Jeanne Killian MD Primary Care Provider [phone] Puma Kang MD, MPH Unavailable [phone] Eric Stevenson MD Unavailable [phone] Geri Parks MD Unavailable [phone] Reason for Referral * MRI/CAT Scan - Closed Specialty Diagnoses / Procedures Referred By Contmigel t Referred To Contact Procedures CT Abdomen Outside (No Interpretation) Benito Mcconnell MD, MPH Phone: tel: fax: mailto:[email or web address] Referral ID Status Reason Start Date Expiration Date Visits Re quested Visits Authorized [id number] Closed 02/18/2017 02/18/2018 1 1 Encounter Details Date Type Department Care Team (Late st Contact Info) Description 02/18/2017 Transcribe Orders [facility] [address] [place] [address] Jordyn Still [address] [place] [address] [email or web address] Social History Tobacco Use Types [...] Description 04/04/2025 1:00 PM EST Office Visit [address] [address] Benito Mcconnell MD, MPH [address] [place] [address] BRISA@[email or web address] documented as of this encounter Results * CT Abdomen Outside (No Interpretation) (02/18/2017 12:00 AM EST) Narrative [facility] - 02/18/2017 10:27 AM EST This study is for PACS storage only and not for interpretation. us Benito Mcconnell MD, MPH IMG OUTSIDE IMAGING W/OUT INTERPRETATION Final Result [facility] documented in this encounter Visit Diagnoses Not on filedocumented in this encounter Care Teams Electrical Power Engineer Relationship Specialty Start Date End Date Jeanne Killian MD [address] [facility] [place] [address] PCP - General Internal Medicine 01/20/16 Self-Referred, Patient 12/29/15 Benito Mcconnell MD, MPH [address] [place] [address] [email or web address] Primary Oncologist Urology 12/29/15 Puma Kang MD, MPH [address] [place] [address], ASB1- [address]2 [place] [address] [email or web address] Radiation Oncology 02/06/16 Eric Stevenson MD [address] [place] [address], [address] [place] [address] [email or web address] Urology 02/06/16 Geri Parks MD [address] [place] [address] for Oncology, [address] [address] [email or web address] Primary Oncologist Oncology 02/06/16 documented as of this encounter Additional Source Comments The information contained in this document represents components of the legal health record. It is not the complete legal health record.[facility]
--- OUTSIDE RECORDS SUMMARY | 2024-11-29 15:45 | XMS_ITS | Encounter Summary ---
Author Organization [facility] Address [address] [place] [address] Phone Care Team Providers Care Rail Loader Name Role Phone Self-Referred, Patient Unavailable Unavailab Benito Morrow MD, MPH Unavailable [phone] Jeanne Killian MD Primary Care Provider [phone] Puma Kang MD, MPH Unavailable [phone] Eric Stevenson MD Unavailable [phone] Geri Parks MD Unavailable [phone] Reason for Referral * MRI/CAT Scan - Closed Specialty Diagnoses / Procedures Referred By Contmigel t Referred To Contact Radiology Diagnoses Malignant neoplasm of lateral wall of urinary bladder Procedures CT 3D Reconstruction Abdomen and Pelvis Benito Mcconnell MD, MPH Phone: tel: fax: mailto:[email or web address] Referral ID Status Reason Start Date Expiration Date Visits Re quested Visits Authorized [id number] Closed 10/12/2018 10/12/2019 1 1 Encounter Details Date Type Department Care Team (Late st Contact Info) Description 10/12/2018 Ancillary Orders [facility] Urology [address] [place], [place] [address]-3 [place] [address] Benito Mcconnell MD, MPH [address] [place] [address] [email or web address] Malignant neoplasm of lateral wall of urinary [...] Description 04/04/2025 1:00 PM EST Office Visit [address] [address] Benito Mcconnell MD, MPH [address] [place] [address] BRISA@[email or web address] documented as of this encounter Results * [...] bladder documented in this encounter Care Teams Rail Loader Relationship Specialty Start Date End Date Jeanne Killian MD [address] [facility] [place] [address] PCP - General Internal Medicine 01/20/16 Self-Referred, Patient 12/29/15 Benito Mcconnell MD, MPH [address] [place] [address] 11-3 [place] [address] [email or web address] Primary Oncologist Urology 12/29/15 Puma Kang MD, MPH [address] [place] [address] ASB1- L2 [place] [address] [email or web address] Radiation Oncology 02/06/16 Eric Stevenson MD [address] [facility], [address] [place] [address] Urology 02/06/16 Geri Parks MD [address] [place] [address] for Oncology, [address] [place] [address] Renea@[email or web address] Primary Oncologist Oncology 02/06/16 documented as of this encounter Additional Source Comments The information contained in this document represents components of the legal health record. It is not the complete legal health record.[facility]
--- OUTSIDE RECORDS SUMMARY | 2024-11-29 15:45 | XMS_ITS | Encounter Summary ---
Author Organization [facility] Address [address] [place] [address] Phone Care Team Providers Care Teletypist Name Role Phone Self-Referred, Patient Unavailable Unavailab Benito Morrow MD, MPH Unavailable [phone] Jeanne Killian MD Primary Care Provider [phone] Puma Kang MD, MPH Unavailable [phone] Eric Stevenson MD Unavailable [phone] Geri Parks MD Unavailable Encounter Details Date Type Department Care Team (Late st Contact Info) Description 06/04/2021 Procedure Pass [facility] [address] [place] [address] Social History Tobacco Use Types Packs/Day Years [...] Description 04/04/2025 1:00 PM EST [facility] [place] [address] Benito Mcconnell MD, MPH [address] [place] [address] 11[address] [place] [address] [email or web address] documented as of this encounter Visit Diagnoses Not on filedocumented in this encounter Care Teams Teletypist Relationship Specialty Start Date End Date Jeanne Killian MD [address] [facility] [place] [address] PCP - General Internal Medicine 01/20/16 Self-Referred, Patient 12/29/15 Benito Mcconnell MD, MPH [address] [place] [address] [address] [place] [address] BRISA@[email or web address] Primary Oncologist Urology 12/29/15 Puma Kang MD, MPH [address] [place] [address], [facility]- L2 [place] [address] ROSANNA@[facility] Radiation Oncology 02/06/16 Eric Stevenson MD [address] [place] [address], [address] [place] [address] Urology 02/06/16 Geri Parks MD [address] [place] [address] for Oncology, [place] [address] [place] [address] Renea@[email or web address] Primary Oncologist Oncology 02/06/16 documented as of this encounter Additional Source Comments The information contained in this document represents components of the legal health record. It is not the complete legal health record.[facility]
--- OUTSIDE RECORDS SUMMARY | 2024-11-29 15:45 | XMS_ITS | Encounter Summary ---
Author Organization [facility] Address [address] [place] [address] Phone Care Team Providers Care Service Station Equipment Mechanic Name Role Phone Self-Referred, Patient Unavailable Unavailab Benito Morrow MD, MPH Unavailable [phone] Jeanne Killian MD Primary Care Provider [phone] Puma Kang MD, MPH Unavailable [phone] Eric Stevenson MD Unavailable [phone] Geri Parks MD Unavailable [phone] Encounter Details Date Type Department Care Team (Late st Contact Info) Description 06/04/[address] [facility] [address] [place] [address] Social History Tobacco Use Types Packs/Day Years [...] Description 04/04/2025 1:00 PM EST [facility] [place] [address] Benito Mcconnell MD, MPH [address] [place] [address] 11[address] [place] [address] BRISA@[facility] documented as of this encounter Visit Diagnoses Not on filedocumented in this encounter Care Teams Service Station Equipment Mechanic Relationship Specialty Start Date End Date Jeanne Killian MD [address] [facility] [place] [address] PCP - General Internal Medicine 01/20/16 Self-Referred, Patient 12/29/15 Benito Mcconnell MD, MPH [address] [place] [address] 11[address] [place] [address] [email or web address] Primary Oncologist Urology 12/29/15 Puma Kang MD, MPH [address] [place] [address], [facility]- L[address] [place] [address] ROSANNA@[facility] Radiation Oncology 02/06/16 Eric Stevenson MD [address] [place] [address], [address] [place] [address] Urology 02/06/16 Geri Parks MD [address] [place] [address] for Oncology, [place] [address] [place] [address] Renea@[email or web address] Primary Oncologist Oncology 02/06/16 documented as of this encounter Additional Source Comments The information contained in this document represents components of the legal health record. It is not the complete legal health record.[facility]
--- OUTSIDE RECORDS SUMMARY | 2024-11-29 15:45 | XMS_ITS | Encounter Summary ---
Author Organization [facility] Address [address] [place] [address] Phone Care Team Providers Care Professional System Administrator Name Role Phone Self-Referred, Patient Unavailable Unavailab Benito Morrow MD, MPH Unavailable [phone] Jeanne Killian MD Primary Care Provider [phone] Puma Kang MD, MPH Unavailable [phone] Eric Stevenson MD Unavailable Geri Parks MD Unavailable [phone] Reason for Referral * MRI/CAT Scan - Closed Specialty Diagnoses / Procedures Referred By Trever manuel Referred To Contact Radiology Diagnoses Bladder cancer Procedures CT Chest Benito Mcconnell MD, MPH Phone: tel: fax: mailto:[email or web address] Referral ID Status Reason Start Date Expiration Date Visits Re quested Visits Authorized [id number] Closed 05/09/2019 05/08/2020 1 1 Encounter Details Date Type Department Care Team ([facility] st Contact Info) Description 05/09/2019 Ancillary Orders [facility] Urology [address] [place], [place] [address]42-3 [place] [address] Benito Mcconnell MD, MPH [address] [place] [address] 11-[address] [place], [place] [id number] [email or web address] Bladder cancer Social History Tobacco Use [...] Description 04/04/2025 1:00 PM EST Office Visit [address] [address] Benito Mcconnell MD, MPH [address] [place] [address] BRISA@[email or web address] documented as of this encounter Results * [...] unspecified documented in this encounter Care Teams Professional System Administrator Relationship Specialty Start Date End Date Jeanne Killian MD [address] [place] [address] PCP - General Internal Medicine 01/20/16 Self-Referred, Patient 12/29/15 Benito Mcconnell MD, MPH [address] [place] [address] 11-[address] [place] [address] [email or web address] Primary Oncologist Urology 12/29/15 Puma Kang MD, MPH [address] [place] [address], ASB1- [address]2 [place] [address] ROSANNA@[email or web address] Radiation Oncology 02/06/16 Eric Stevenson MD [address] [place] [address], [address] [place] [address] Urology 02/06/16 Geri Parks MD [address] [facility] for Oncology, [address] [place] [address] Renea@[email or web address] Primary Oncologist Oncology 02/06/16 documented as of this encounter Additional Source Comments The information contained in this document represents components of the legal health record. It is not the complete legal health record.[facility]
--- OUTSIDE RECORDS SUMMARY | 2024-11-29 15:45 | XMS_ITS | Encounter Summary ---
Author Organization [facility] Address [address] [place] [address] [place] [address] Phone Care Team Providers Care Application Processor Name Role Phone Self-Referred, Patient Unavailable Unavailab Benito Morrow MD, MPH Unavailable [phone] Jeanne Killian MD Primary Care Provider [phone] Puma Kang MD, MPH Unavailable [phone] Eric Stevenson MD Unavailable [phone] Geri Parks MD Unavailable [phone] Encounter Details Date Type Department Care Team (Late st Contact Info) Description 02/18/2017 [facility] [address] [place] [address] Social History Tobacco Use Types Packs/Day Years [...] Description 04/04/2025 1:00 PM EST Office Visit [address] [address] Benito Mcconnell MD, MPH [address] [place] [address] BRISA@[email or web address] documented as of this encounter Visit Diagnoses Not on filedocumented in this encounter Care Teams Application Processor Relationship Specialty Start Date End Date Jeanne Killian MD [address] [place] [address] PCP - General Internal Medicine 01/20/16 Self-Referred, Patient 12/29/15 Benito Mcconnell MD, MPH [address] [facility] 11-[address] [place] [address] BRISA@[facility] Primary Oncologist Urology 12/29/15 Puma Kang MD, MPH [address] [facility], ASB1- L2 [place] [address] ROSANNA@[facility] Radiation Oncology 02/06/16 Eric Stevenson MD [address] [facility], [address] [place] [address] Urology 02/06/16 Geri Parks MD [address] [place] [address] for Oncology, [address] [address] Renea@[email or web address] Primary Oncologist Oncology 02/06/16 documented as of this encounter Additional Source Comments The information contained in this document represents components of the legal health record. It is not the complete legal health record.[facility]
== END 2024-11-29 15:51 | disposition home or self-care (01) ==
LOC: HO.HMCC 13:45
PROVIDERS: PCP Internal Medicine; Visit Provider Internal Medicine
DX: I50.30 Unspecified diastolic (congestive) heart failure (principal); K76.6 Portal hypertension; J44.9 Chronic obstructive pulmonary disease, unspecified; N18.31 Chronic kidney disease, stage 3a; D64.9 Anemia, unspecified

== ENCOUNTER → 2024-11-29 13:44 | Outpatient (BNVA) | payer MEDICARE, SELFPAY | PROVIDERS: PCP Internal Medicine; Visit Provider Internal Medicine | DX: I13.0 Hypertensive heart and chronic kidney disease with heart failure and stage 1 through stage 4 chronic kidney disease, or unspecified chronic kidney disease (principal); N18.31 Chronic kidney disease, stage 3a; I50.30 Unspecified diastolic (congestive) heart failure; K76.6 Portal hypertension; J44.9 Chronic obstructive pulmonary disease, unspecified; D64.9 Anemia, unspecified; Z79.899 Other long term (current) drug therapy | CPT/HCPCS: 99212 ==

== ENCOUNTER 2024-12-05 17:35 | Emergency (ER) | payer MEDICARE, SELFPAY ==
--- NOTE | ~2024-12-05 | XR_ITS ---
CLINICAL HISTORY: weakness, recent heart attack per patient 1 view chest x-ray Comparison: CR/SR - XR CHEST 2V - 07/24/24 10:42 EDT Findings: Mild bilateral atelectasis. No significant pleural effusion or pneumothorax. Similar prominent/enlarged cardiac silhouette. No acute fracture. Similar scattered clips in the right axilla. IMPRESSION: Mild bilateral atelectasis. This document has been electronically signed by: Kamran Leon MD on 12/05/2024 18:33:44
--- NOTE | ~2024-12-05 | XR_ITS ---
CLINICAL HISTORY: pain fall 5 view, pelvis and right hip Comparison: None provided Findings: No acute fracture or malalignment. Degenerative changes throughout the SI joints, pubic symphysis and hips bilaterally. The soft tissues are unremarkable. IMPRESSION: No acute findings. This document has been electronically signed by: Kamran Leon MD on 12/05/2024 20:16:54
--- NOTE | ~2024-12-05 | CT_ITS ---
CLINICAL HISTORY: Change in Mental Status CT head without contrast Comparison: None provided Findings: No intra-axial mass, midline shift, hydrocephalus, or acute hemorrhage. Mild heterogeneous low attenuation in the periventricular white matter. There is no sinus or mastoid fluid. The orbits are unremarkable. No skull fracture. IMPRESSION: 1. No acute intracranial findings. 2. Mild chronic periventricular microvascular ischemic disease. This document has been electronically signed by: Hayden Higgins MD on 12/05/2024 22:30:18
[2024-12-05 17:54] VITALS: BP 142/61; BP 182/82; PULSE 70; PULSE 75; RESP 16; TEMP 36.9; O2SAT 97; O2SAT 98; BMI 29.6
--- NOTE | 2024-12-05 17:59 | ECG_ITS ---
Test Reason : WEAKNESS Blood Pressure : */* mmHG Vent. Rate : 67 BPM Atrial Rate : 67 BPM P-R Int : 194 ms QRS Dur : 80 ms QT Int : 394 ms P-R-T Axes : 49 12 42 degrees QTcB Int : 416 ms Normal sinus rhythm Normal ECG When compared with ECG of 12-Jun-2024 13:30, QT has shortened Referred By: Generic ED Physician Electronically Signed By: Sotero Vega
[2024-12-05 18:15] VITALS: BP 142/61; PULSE 70; RESP 16; TEMP 36.9; O2SAT 98
--- OUTSIDE RECORDS SUMMARY | 2024-12-05 18:25 | XMS_ITS | Encounter Summary ---
Author Organization [facility] Address [address] [place] [address] Phone Care Team Providers Care Designer/Writer Name Role Phone Self-Referred, Patient Unavailable Unavailab le Benito Mcconnell MD, MPH Unavailable [phone] Jeanne Killian MD Primary Care Provider [phone] Puma Kang MD, MPH Unavailable [phone] Eric Stevenson MD Unavailable [phone] Geri Parks MD Unavailable Reason for Referral * MRI/CAT Scan - Closed Specialty Diagnoses / Procedures Referred By Contac t Referred To Contact Procedures CT Chest Outside (No Interpretation) Benito Mcconnell MD, MPH Phone: tel: fax: mailto:[email or web address] Referral ID Status Reason Start Date Expiration Date Visits Re quested Visits Authorized [id number] Closed 04/27/2017 04/27/2018 1 1 Encounter Details Date Type Department Care Team (Late st Contact Info) Description 04/27/2017 Transcribe Orders [facility] [address] [place] [address] Mookie [email or web address] Social History Tobacco Use Types Packs/Day Years [...] Description 04/04/2025 1:00 PM EST [facility] [address] [place] [address] Benito Mcconnell MD, MPH [address] [place], [place] [address] [place] [address] BRISA@[facility] documented as of this encounter Results * CT Chest Outside (No Interpretation) (04/27/2017 12:00 AM EST) Narrative [facility] - 04/27/2017 12:25 PM EST This study is for PACS storage only and not for interpretation. us Benito Mcconnell MD, MPH IMG OUTSIDE IMAGING W/OUT INTERPRETATION Final Result [facility] documented in this encounter Visit Diagnoses Not on filedocumented in this encounter Care Teams Designer/Writer Relationship Specialty Start Date End Date Jeanne Killian MD [address] [place] [address] PCP - General Internal Medicine 01/20/16 Self-Referred, Patient 12/29/15 Benito Mcconnell MD, MPH [address] [place] [address] 11-[address] [place] [address] [email or web address] Primary Oncologist Urology 12/29/15 Puma Kang MD, MPH [address] [place] [address], ASB1- L2 [place] [address] ROSANNA@[email or web address] Radiation Oncology 02/06/16 Eric Stevenson MD [address] [place] [address], [address] [place] [address] [email or web address] Urology 02/06/16 Geri Parks MD [address] [place] [address] Renea@[email or web address] Primary Oncologist Oncology 02/06/16 documented as of this encounter Additional Source Comments The information contained in this document represents components of the legal health record. It is not the complete legal health record.[facility]
--- OUTSIDE RECORDS SUMMARY | 2024-12-05 18:25 | XMS_ITS | Encounter Summary ---
Author Organization [facility] Address [address] [place] [address] [place] [address] Phone Care Team Providers Care Card Cutter Helper Name Role Phone Self-Referred, Patient Unavailable Unavailab Benito Morrow MD, MPH Unavailable [phone] Jeanne Killian MD Primary Care Provider [phone] Puma Kang MD, MPH Unavailable [phone] Eric Stevenson MD Unavailable [phone] Geri Parks MD Unavailable [phone] Encounter Details Date Type Department Care Team (Late st Contact Info) Description 04/27/2017 Procedure Pass [facility] [address] [place] [address] Social History Tobacco Use Types Packs/Day Years [...] Description 04/04/2025 1:00 PM EST Office Visit [address] [address] Benito Mcconnell MD, MPH [address] [place] [address] BRISA@[email or web address] documented as of this encounter Visit Diagnoses Not on filedocumented in this encounter Care Teams Card Cutter Helper Relationship Specialty Start Date End Date Jeanne Killian MD [address] [facility] [place] [address] PCP - General Internal Medicine 01/20/16 Self-Referred, Patient 12/29/15 Benito Mcconnell MD, MPH [address] [facility] 11-[address] [place] [address] BRISA@[email or web address] Primary Oncologist Urology 12/29/15 Puma Kang MD, MPH [address] [facility], [facility]- [place] [place] [address] ROSANNA@[facility] Radiation Oncology 02/06/16 Eric Stevenson MD [address] [place] [address], [address] [place] [address] [email or web address] Urology 02/06/16 Geri Parks MD [address] [place] [address] Renea@[facility] Primary Oncologist Oncology 02/06/16 documented as of this encounter Additional Source Comments The information contained in this document represents components of the legal health record. It is not the complete legal health record.[facility]
--- OUTSIDE RECORDS SUMMARY | 2024-12-05 18:25 | XMS_ITS | Encounter Summary ---
Author Organization [facility] Address [address] [place] [address] [place] [address] Phone Care Team Providers Care State Historical Society Director Name Role Phone Self-Referred, Patient Unavailable Unavailab Benito Morrow MD, MPH Unavailable [phone] Jeanne Killian MD Primary Care Provider [phone] Puma Kang MD, MPH Unavailable [phone] Eric Stevenson MD Unavailable [phone] Geri Parks MD Unavailable [phone] Encounter Details Date Type Department Care Team (Late st Contact Info) Description 04/22/2017 Procedure Pass [facility] [address] [place] [address] Social History Tobacco Use Types Packs/Day Years [...] Description 04/04/2025 1:00 PM EST Office Visit [facility] 20 [place] [address] Benito Mcconnell MD, MPH [address] [place] [address] BRISA@[email or web address] documented as of this encounter Visit Diagnoses Not on filedocumented in this encounter Care Teams State Historical Society Director Relationship Specialty Start Date End Date Jeanne Killian MD [address] [place] [address] PCP - General Internal Medicine 01/20/16 Self-Referred, Patient 12/29/15 Benito Mcconnell MD, MPH [address] [place] [address] 11-3 [place], [place] BRISA@[email or web address] Primary Oncologist Urology 12/29/15 Puma Kang MD, MPH [address] [facility], ASB1- [address] [place] [address] ROSANNA@[email or web address] Radiation Oncology 02/06/16 Eric Stevenson MD [address] [place] [address], [address] [place] [address] [email or web address] Urology 02/06/16 Geri Parks MD [address] [place] [address] Renea@[email or web address] Primary Oncologist Oncology 02/06/16 documented as of this encounter Additional Source Comments The information contained in this document represents components of the legal health record. It is not the complete legal health record.[facility]
--- OUTSIDE RECORDS SUMMARY | 2024-12-05 18:25 | XMS_ITS | Encounter Summary ---
Author Organization [facility] Address [address] [place] [address] Phone Care Team Providers Care Media Relations Coordinator Name Role Phone Self-Referred, Patient Unavailable Unavailab Benito Morrow MD, MPH Unavailable [phone] Jeanne Killian MD Primary Care Provider [phone] Puma Kang MD, MPH Unavailable [phone] Eric Stevenson MD Unavailable [phone] Geri Parks MD Unavailable [phone] Encounter Details Date Type Department Care Team (Late st Contact Info) Description 01/03/2020 Procedure Pass [facility] 20 [place] [address] Social History Tobacco Use Types Packs/Day Years [...] 04/04/2025 1:00 PM EST [facility] [place] [address] Benito Mcconnell MD, MPH [address] [place] [address] [place] [address] [email or web address] documented as of this encounter Visit Diagnoses Not on filedocumented in this encounter Care Teams Media Relations Coordinator Relationship Specialty Start Date End Date Jeanne Killian MD [address] [place] [address] PCP - General Internal Medicine 01/20/16 Self-Referred, Patient 12/29/15 Benito Mcconnell MD, MPH [address] [place] [address] 11-3 [place] [address] BRISA@[email or web address] Primary Oncologist Urology 12/29/15 Puma Kang MD, MPH [address] [place] [address], [facility]1- L2 [place] [address] ROSANNA@[email or web address] Radiation Oncology 02/06/16 Eric Stevenson MD [address] [place] [address], [address] [place] [address] [email or web address] Urology 02/06/16 Geri Parks MD [address] [place] [address] [email or web address]@[email or web address] Primary Oncologist Oncology 02/06/16 documented as of this encounter Additional Source Comments The information contained in this document represents components of the legal health record. It is not the complete legal health record.[facility]
--- OUTSIDE RECORDS SUMMARY | 2024-12-05 18:25 | XMS_ITS | Encounter Summary ---
Author Organization [facility] Address [address] [place] [address] [place] [address] Phone Care Team Providers Care Instrument Adjuster Name Role Phone Self-Referred, Patient Unavailable Unavailab Benito Morrow MD, MPH Unavailable [phone] Jeanne Killian MD Primary Care Provider [phone] Puma Kang MD, MPH Unavailable [phone] Eric Stevenson MD Unavailable [phone] Geri Parks MD Unavailable [phone] Encounter Details Date Type Department Care Team (Late st Contact Info) Description 04/07/2023 Procedure Pass [address] [address] Social History Tobacco Use Types Packs/Day Years [...] 04/04/2025 1:00 PM EST Office Visit [facility] [address] [place] [address] Benito Mcconnell MD, MPH [address] [place] [address] 11-3 [place] [address] [email or web address] documented as of this encounter Visit Diagnoses Not on filedocumented in this encounter Care Teams Instrument Adjuster Relationship Specialty Start Date End Date Jeanne Killian MD [address] [facility] [place] [address] PCP - General Internal Medicine 01/20/16 Self-Referred, Patient 12/29/15 Benito Mcconnell MD, MPH [address] [place] [address] 11-3 [place] [address] BRISA@[email or web address] Primary Oncologist Urology 12/29/15 Puma Kang MD, MPH [address] [place] [address], [facility]1- L2 [place] [address] ROSANNA@[facility] Radiation Oncology 02/06/16 Eric Stevenson MD [address] [place] [address], [address] [place] [address] [email or web address] Urology 02/06/16 Geri Parks MD [address] [place] [address] [email or web address] Primary Oncologist Oncology 02/06/16 documented as of this encounter Additional Source Comments The information contained in this document represents components of the legal health record. It is not the complete legal health record.[facility]
--- OUTSIDE RECORDS SUMMARY | 2024-12-05 18:25 | XMS_ITS | Encounter Summary ---
Author Organization [facility] Address [address] [place] [address] [place] [address] Phone Care Team Providers Care Rivet Spinner Name Role Phone Self-Referred, Patient Unavailable Unavailab Benito Morrow MD, MPH Unavailable [phone] Jeanne Killian MD Primary Care Provider [phone] Puma Kang MD, MPH Unavailable [phone] Eric Stevenson MD Unavailable [phone] Geri Parks MD Unavailable [phone] Encounter Details Date Type Department Care Team (Late st Contact Info) Description 04/07/2023 Procedure Pass [address] [address] Social History Tobacco Use Types Packs/Day Years [...] Description 04/04/2025 1:00 PM EST Office Visit [facility] [address] [place] [address] Benito Mcconnell MD, MPH [address] [place] [address] 11-3 [place] [address] BRISA@[email or web address] documented as of this encounter Visit Diagnoses Not on filedocumented in this encounter Care Teams Rivet Spinner Relationship Specialty Start Date End Date Jeanne Killian MD [address] [facility] [place] [address] PCP - General Internal Medicine 01/20/16 Self-Referred, Patient 12/29/15 Benito Mcconnell MD, MPH [address] [place] [address] 11-3 [place] [address] BRISA@[email or web address] Primary Oncologist Urology 12/29/15 Puma Kang MD, MPH [address] [place] [address], [facility]1- L2 [place] [address] ROSANNA@[facility] Radiation Oncology 02/06/16 Eric Stevenson MD [address] [place] [address], [address] [place] [address] [email or web address] Urology 02/06/16 Geri Parks MD [address] [place] [address] [email or web address] Primary Oncologist Oncology 02/06/16 documented as of this encounter Additional Source Comments The information contained in this document represents components of the legal health record. It is not the complete legal health record.[facility]
--- OUTSIDE RECORDS SUMMARY | 2024-12-05 18:25 | XMS_ITS | Encounter Summary ---
Author Organization [facility] Address [address] [place] [address] Phone Care Team Providers Care Straw Boss Name Role Phone Self-Referred, Patient Unavailable Unavailab Benito Morrow MD, MPH Unavailable [phone] Jeanne Killian MD Primary Care Provider [phone] Puma Kang MD, MPH Unavailable [phone] Eric Stevenson MD Unavailable [phone] Geri Parks MD Unavailable [phone] Encounter Details Date Type Department Care Team (Late st Contact Info) Description 01/03/2020 Procedure Pass [facility] 20 [place] [address] Social History Tobacco Use Types Packs/Day Years [...] Description 04/04/2025 1:00 PM EST [facility] [place] [address] Benito Mcconnell MD, MPH [address] [place] [address]3 [place] [address] BRISA@[email or web address] documented as of this encounter Visit Diagnoses Not on filedocumented in this encounter Care Teams Straw Boss Relationship Specialty Start Date End Date eJanne Killian MD [address] [place] [address] PCP - General Internal Medicine 01/20/16 Self-Referred, Patient 12/29/15 Benito Mcconnell MD, MPH [address] [place] [address] 11-3 [place] [address] BRISA@[email or web address] Primary Oncologist Urology 12/29/15 Puma Kang MD, MPH [address] [place] [address], [facility]1- L2 [place] [address] ROSANNA@[email or web address] Radiation Oncology 02/06/16 Eric Stevenson MD [address] [place] [address], [address] [place] [address] [email or web address] Urology 02/06/16 Geri Parks MD [address] [place] [address] Renea@[email or web address] Primary Oncologist Oncology 02/06/16 documented as of this encounter Additional Source Comments The information contained in this document represents components of the legal health record. It is not the complete legal health record.[facility]
--- OUTSIDE RECORDS SUMMARY | 2024-12-05 18:25 | XMS_ITS | Encounter Summary ---
Author Organization [facility] Address [address] [place] [address] [place] [address] Phone Care Team Providers Care Business Unit Director Name Role Phone Self-Referred, Patient Unavailable Unavailab Benito Morrow MD, MPH Unavailable [phone] Jeanne Killian MD Primary Care Provider [phone] Puma Kang MD, MPH Unavailable [phone] Eric Stevenson MD Unavailable [phone] Geri Parks MD Unavailable [phone] Encounter Details Date Type Department Care Team (Late st Contact Info) Description 04/05/2024 Procedure Pass [address] [address] Social History Tobacco Use Types Packs/Day Years [...] Description 04/04/2025 1:00 PM EST Office Visit [facility] [address] [place] [address] Benito Mcconnell MD, MPH [address] [place] [address] 11-3 [place] [address] BRISA@[email or web address] documented as of this encounter Visit Diagnoses Not on filedocumented in this encounter Care Teams Business Unit Director Relationship Specialty Start Date End Date Jeanne Killian MD [address] [place] [address] PCP - General Internal Medicine 01/20/16 Self-Referred, Patient 12/29/15 Benito Mcconnell MD, MPH [address] [place] [address] 11-3 [place] [address] BRISA@[email or web address] Primary Oncologist Urology 12/29/15 Puma Kang MD, MPH [address] [place] [address], [facility]1- L[address] [place] [address] [email or web address]@[email or web address] Radiation Oncology 02/06/16 Eric Stevenson MD [address] [place] [address], [address] [place] [address] [email or web address] Urology 02/06/16 Geri Parks MD [address] [place] [address] [email or web address] Primary Oncologist Oncology 02/06/16 documented as of this encounter Additional Source Comments The information contained in this document represents components of the legal health record. It is not the complete legal health record.[facility]
--- OUTSIDE RECORDS SUMMARY | 2024-12-05 18:26 | XMS_ITS | Encounter Summary ---
Author Organization [facility] Address [address] [place] [address] Phone Care Team Providers Care Busher Helper Name Role Phone Self-Referred, Patient Unavailable Unavailab Benito Morrow MD, MPH Unavailable [phone] Jeanne Killian MD Primary Care Provider [phone] Puma Kang MD, MPH Unavailable [phone] Eric Stevenson MD Unavailable [phone] Geri Parks MD Unavailable [phone] Encounter Details Date Type Department Care Team (Late st Contact Info) Description 09/04/2020 Procedure Pass [facility] 20 [place] [address] Social History Tobacco Use Types Packs/Day Years [...] Description 04/04/2025 1:00 PM EST [facility] [place] [address] Benito Mcconnell MD, MPH [address] [place] [address] 11-3 [place] [address] BRISA@[email or web address] documented as of this encounter Visit Diagnoses Not on filedocumented in this encounter Care Teams Busher Helper Relationship Specialty Start Date End Date Jeanne Killian MD [address] [facility] [place] [address] PCP - General Internal Medicine 01/20/16 Self-Referred, Patient 12/29/15 Benito Mcconnell MD, MPH [address] [place] [address] 11-3 [place] [address] BRISA@[email or web address] Primary Oncologist Urology 12/29/15 Puma Kang MD, MPH [address] [place] [address], [facility]1- L2 [place] [address] ROSANNA@[email or web address] Radiation Oncology 02/06/16 Eric Stevenson MD [address] [place] [address], [address] [address] [email or web address] Urology 02/06/16 Geri Parks MD [address] [place] [address] Renea@[email or web address] Primary Oncologist Oncology 02/06/16 documented as of this encounter Additional Source Comments The information contained in this document represents components of the legal health record. It is not the complete legal health record.[facility]
--- OUTSIDE RECORDS SUMMARY | 2024-12-05 18:26 | XMS_ITS | Encounter Summary ---
Author Organization [facility] Address [address] [place] [address] Phone Care Team Providers Care Nut Sorter Operator Name Role Phone Self-Referred, Patient Unavailable Unavailab Benito Morrow MD, MPH Unavailable [phone] Jeanne Killian MD Primary Care Provider [phone] Puma Kang MD, MPH Unavailable [phone] Eric Stevenson MD Unavailable [phone] Geri Parks MD Unavailable [phone] Reason for Referral * MRI/CAT Scan - Closed Specialty Diagnoses / Procedures Referred By Trever manuel Referred To Contact Radiology Diagnoses Bladder cancer Procedures CT Chest Benito Mcconnell MD, MPH Phone: tel: fax: mailto:[email or web address] Referral ID Status Reason Start Date Expiration Date Visits Re quested Visits Authorized [id number] Closed 05/09/2019 05/08/2020 1 1 Encounter Details Date Type Department Care Team ([facility] st Contact Info) Description 05/09/2019 Ancillary Orders [facility] Urology [address] [place], [place] [address]62-3 [place] [address] Benito Mcconnell MD, MPH [address] [place] [address] 11-3 [place], [place] [phone] [email or web address] Bladder cancer Social History Tobacco Use Types [...] Description 04/04/2025 1:00 PM EST Office Visit [address] [address] Benito Mcconnell MD, MPH [address] [place] [address] BRISA@[email or web address] documented as of this encounter Results [...] unspecified documented in this encounter Care Teams Nut Sorter Operator Relationship Specialty Start Date End Date Jeanne Killian MD [address] [place] [address] PCP - General Internal Medicine 01/20/16 Self-Referred, Patient 12/29/15 Benito Mcconnell MD, MPH [address] [place] [address] 11-3 [place] [address] BRISA@[email or web address] Primary Oncologist Urology 12/29/15 Puma Kang MD, MPH [address] [place] [address], [facility]1- [address] [place] [address] ROSANNA@[email or web address] Radiation Oncology 02/06/16 Eric Stevenson MD [address] [place] [address], [address] [place] [address] Urology 02/06/16 Geri Parks MD [address] [place] [address] [email or web address] Primary Oncologist Oncology 02/06/16 documented as of this encounter Additional Source Comments The information contained in this document represents components of the legal health record. It is not the complete legal health record.[facility]
--- OUTSIDE RECORDS SUMMARY | 2024-12-05 18:26 | XMS_ITS | Encounter Summary ---
Author Organization [facility] Address [address] [place] [address] Phone Care Team Providers Care Boatswain Mate Name Role Phone Self-Referred, Patient Unavailable Unavailab Benito Morrow MD, MPH Unavailable [phone] Jeanne Killian MD Primary Care Provider [phone] Puma Kang MD, MPH Unavailable [phone] Eric Stevenson MD Unavailable [phone] Geri Parks MD Unavailable [phone] Encounter Details Date Type Department Care Team (Late st Contact Info) Description 09/04/2020 Procedure Pass [facility] 20 [place] [address] Social History Tobacco Use Types Packs/Day Years [...] Description 04/04/2025 1:00 PM EST [facility] [place] [address] Benito Mcconnell MD, MPH [address] [place] [address] 11-3 [place] [address] BRISA@[email or web address] documented as of this encounter Visit Diagnoses Not on filedocumented in this encounter Care Teams Boatswain Mate Relationship Specialty Start Date End Date Jeanne Killian MD [address] [facility] [place] [address] PCP - General Internal Medicine 01/20/16 Self-Referred, Patient 12/29/15 Benito Mcconnell MD, MPH [address] [place] [address] 11-3 [place] [address] BRISA@[email or web address] Primary Oncologist Urology 12/29/15 Puma Kang MD, MPH [address] [place] [address], [facility]1- L2 [place] [address] ROSANNA@[facility] Radiation Oncology 02/06/16 Eric Stevenson MD [address] [place] [address], [address] [address] [email or web address] Urology 02/06/16 Geri Parks MD [address] [place] [address] Renea@[email or web address] Primary Oncologist Oncology 02/06/16 documented as of this encounter Additional Source Comments The information contained in this document represents components of the legal health record. It is not the complete legal health record.[facility]
--- OUTSIDE RECORDS SUMMARY | 2024-12-05 18:26 | XMS_ITS | Encounter Summary ---
Author Organization [facility] Address [address] [place] [address] Care Team Providers Care Garment Worker Name Role Phone Enedelia Rdz MD Primary Care Provider + Encounter Details Date Type Department Care Team (Late st Contact Info) Description 07/06/2024 Lab Requisition [facility] - Main Lab [address] [facility] [address] Enedelia Rdz MD [address] [place] [phone] Chronic kidney disease, unspecified; Gastro-esophageal reflux disease [...] unspecified documented in this encounter Care Teams Garment Worker Relationship Specialty Start Date End Date Enedelia Rdz MD [address] [place] [address] PCP - General Family Medicine 06/22/24 documented as of this encounter
--- OUTSIDE RECORDS SUMMARY | 2024-12-05 18:26 | XMS_ITS | Encounter Summary ---
Author Organization [facility] Address [address] [place] [address] Phone Care Team Providers Care Toll Collector Supervisor Name Role Phone Self-Referred, Patient Unavailable Unavailab Benito Morrow MD, MPH Unavailable [phone] Jeanne Killian MD Primary Care Provider [phone] Puma Kang MD, MPH Unavailable [phone] Eric Stevenson MD Unavailable [phone] Geri Parks MD Unavailable [phone] Encounter Details Date Type Department Care Team (Late st Contact Info) Description 06/04/2021 Procedure Pass [facility] 20 [place] [address] Social History Tobacco Use Types Packs/Day Years [...] Description 04/04/2025 1:00 PM EST [facility] [place] [address] Benito Mcconnell MD, MPH [address] [place] [address] 11-3 [place] [address] BRISA@[email or web address] documented as of this encounter Visit Diagnoses Not on filedocumented in this encounter Care Teams Toll Collector Supervisor Relationship Specialty Start Date End Date Jeanne Killian MD [address] [facility] [place] [address] PCP - General Internal Medicine 01/20/16 Self-Referred, Patient 12/29/15 Benito Mcconnell MD, MPH [address] [place] [address] 11-3 [place] [address] BRISA@[facility] Primary Oncologist Urology 12/29/15 Puma Kang MD, MPH [address] [place] [address], [facility]1- L2 [place] [address] ROSANNA@[facility] Radiation Oncology 02/06/16 Eric Stevenson MD [address] [place] [address], [address] [address] [email or web address] Urology 02/06/16 Geri Parks MD [address] [place] [address] Renea@[email or web address] Primary Oncologist Oncology 02/06/16 documented as of this encounter Additional Source Comments The information contained in this document represents components of the legal health record. It is not the complete legal health record.[facility]
--- OUTSIDE RECORDS SUMMARY | 2024-12-05 18:26 | XMS_ITS | Encounter Summary ---
Author Organization [facility] Address [address] [place] [address] Care Team Providers Care Emt/Paramedic Name Role Phone Enedelia Rdz MD Primary Care Provider + Encounter Details Date Type Department Care Team (Late st Contact Info) Description 06/30/2024 Lab Requisition [facility] - Main Lab [address] [facility] [place] [address] Enedelia Rdz MD [address] [phone] Chronic kidney disease, unspecified; Gastro-esophageal reflux disease [...] [facility] Comment:Calculation based on the [...] MD LAB BLOOD ORDERABLES Fin al Result [facility] [address] [place] [address], * (ABNORMAL) Complete blood count (07/02/2024 8:30 AM EDT) [facility] Signature WBC 5.5 4.8 - 10.8 K/mcL LAB HEMETOLOGY METHOD 07/02/2024 11:38 AM EDT [facility] RBC 3.20(L) 3.80 - 4.80 M/mcL LAB HEMETOLOGY METHOD 07/02/2024 11:38 AM EDT [facility] Hemoglobin 10.1(L) 11.5 - 16.0 g/dL LAB HEMETOLOGY METHOD 07/02/2024 11:38 AM T [facility] Hematocrit 30.6(L) 35.0 - 47.0 % LAB HEMETOLOGY METHOD 07/02/2024 11:38 AM EDT [facility] MCV 96.5 79.0 - 98.0 FL LAB HEMETOLOGY METHOD 07/02/2024 11:38 AM [facility] MCH 31.9 27.0 - 32.0 pcg LAB HEMETOLOGY METHOD 07/02/2024 11:38 AM [facility] MCHC 33.0 32.0 - 37.0 g/dL LAB HEMETOLOGY METHOD 07/02/2024 11:38 AM T [facility] RDW 15.5(H) 11.0 - 15.0 % LAB HEMETOLOGY METHOD 07/02/2024 11:38 [facility] Platelets 150 130 - 400 K/mcL LAB HEMETOLOGY METHOD 07/02/2024 11:38 AM [facility] MPV 10.8 7.0 - 11.0 FL LAB HEMETOLOGY METHOD 07/02/2024 11:38 AM EDT [facility] NRBC 0.0 <1.0 % LAB HEMETOLOGY METHOD 07/02/2024 11:38 AM EDT [facility] NRBC Absolute 0.00 <0.10 K/mcL LAB HEMETOLOGY METHOD 07/02/2024 11:38 AM EDT [facility] Blood Venous blood specimen / Unknown Venipuncture / Unknown 07/02/2024 8:30 AM EDT 07/02/2024 11:09 AM EDT Enedelia Rdz MD LAB BLOOD ORDERABLES Fin al Result [facility] [address] [place] [address], documented in this encounter Visit Diagnoses Diagnosis Chronic kidney disease, unspecified Gastro-esophageal reflux disease without esophagitis Essential (primary) hypertension Unspecified essential hypertension Thrombocytopenia, unspecified (CMS/HCC V24) Thrombocytopenia, unspecified documented in this encounter Care Teams Emt/Paramedic Relationship Specialty Start Date End Date Enedelia Rdz MD [address] [place] [address] PCP - General Family Medicine 06/22/24 documented as of this encounter
--- OUTSIDE RECORDS SUMMARY | 2024-12-05 18:26 | XMS_ITS | Encounter Summary ---
Author Organization [facility] Address [address] [place] [address] [place] [address] Phone Care Team Providers Care Manager Transplant Name Role Phone Self-Referred, Patient Unavailable Unavailab Benito Morrow MD, MPH Unavailable [phone] Jeanne Killian MD Primary Care Provider [phone] Puma Kang MD, MPH Unavailable [phone] Eric Stevenson MD Unavailable [phone] Geri Parks MD Unavailable [phone] Encounter Details Date Type Department Care Team (Late st Contact Info) Description 02/18/2017 Procedure Pass [facility] Radiology 75 [place] [address] Social History Tobacco Use Types Packs/Day Years [...] 04/04/2025 1:00 PM EST Office Visit [address] [address] Benito Mcconnell MD, MPH [address] [place] [address] [email or web address] documented as of this encounter Visit Diagnoses Not on filedocumented in this encounter Care Teams Manager Transplant Relationship Specialty Start Date End Date Jeanne Killian MD [address] [facility] [place] [address] PCP - General Internal Medicine 01/20/16 Self-Referred, Patient 12/29/15 Benito Mcconnell MD, MPH 45 [facility] [address] [place] [address] [email or web address] Primary Oncologist Urology 12/29/15 Puma Kang MD, MPH 75 [facility], [facility]1- L2 [place] [address] [email or web address] Radiation Oncology 02/06/16 Eric Stevenson MD [address] [place] [address], 103 [place] [address] [email or web address] Urology 02/06/16 Geri Parks MD [address] [place] [address] [email or web address] Primary Oncologist Oncology 02/06/16 documented as of this encounter Additional Source Comments The information contained in this document represents components of the legal health record. It is not the complete legal health record.[facility]
--- OUTSIDE RECORDS SUMMARY | 2024-12-05 18:26 | XMS_ITS | Encounter Summary ---
Author Organization [facility] Address [address] [place] [address] [place] [address] Phone Care Team Providers Care Supervisor [employer] Name Role Phone Self-Referred, Patient Unavailable Unavailab Benito Morrow MD, MPH Unavailable [phone] Jeanen Killian MD Primary Care Provider [phone] Puma Kang MD, MPH Unavailable [phone] Eric Stevenson MD Unavailable [phone] Geri Parks MD Unavailable Encounter Details Date Type Department Care Team (Late st Contact Info) Description 06/16/2017 Procedure Pass [facility] 70 [place] [address] Social History Tobacco Use Types Packs/Day Years [...] Description 04/04/2025 1:00 PM EST Office Visit [facility] 20 [place] [address] Benito Mcconnell MD, MPH [address] [place] [address] [email or web address] documented as of this encounter Visit Diagnoses Not on filedocumented in this encounter Care Teams Supervisor [employer] Relationship Specialty Start Date End Date Jeanne Killian MD [address] [facility] [place] [address] PCP - General Internal Medicine 01/20/16 Self-Referred, Patient 12/29/15 Benito Mcconnell MD, MPH [address] [place] [address] [address] [place], [place] [email or web address] Primary Oncologist Urology 12/29/15 Puma Kang MD, MPH 75 [facility], ASB1- L2 [place] [address] [email or web address] Radiation Oncology 02/06/16 Eric Stevenson MD [address] [place] [address], [address] [place] [address] [email or web address] Urology 02/06/16 Geri Parks MD [address] [place] [address] [email or web address] Primary Oncologist Oncology 02/06/16 documented as of this encounter Additional Source Comments The information contained in this document represents components of the legal health record. It is not the complete legal health record.[facility]
--- OUTSIDE RECORDS SUMMARY | 2024-12-05 18:26 | XMS_ITS | Encounter Summary ---
Author Organization [facility] Address [address] [place] [address] Phone Care Team Providers Care Nursing Education Consultant Name Role Phone Self-Referred, Patient Unavailable Unavailab Benito Morrow MD, MPH Unavailable [phone] Jeanne Killian MD Primary Care Provider [phone] Puma Kang MD, MPH Unavailable [phone] Eric Stevenson MD Unavailable [phone] Geri Parks MD Unavailable [phone] Encounter Details Date Type Department Care Team (Late Contact Info) Description 03/05/2016 Procedure Pass [facility] Periop 75 [place] [address] Social History Tobacco Use Types Packs/Day Years [...] Description 04/04/2025 1:00 PM EST Office Visit [facility] 20 [place] [address] Benito Mcconnell MD, MPH [address] [place] [address] [email or web address] documented as of this encounter Visit Diagnoses Not on filedocumented in this encounter Care Teams Nursing Education Consultant Relationship Specialty Start Date End Date Jeanne Killian MD [address] [place] [address] PCP - General Internal Medicine 01/20/16 Self-Referred, Patient 12/29/15 Benito Mcconnell MD, MPH 45 [facility] [address] [place] [address] [email or web address] Primary Oncologist Urology 12/29/15 Puma Kang MD, MPH 75 [facility], ASB1- L2 [place] [address] ROSANNA@[email or web address] Radiation Oncology 02/06/16 Eric [facility] MD [facility], 103 [place] [address] [email or web address] Urology 02/06/16 Geri Parks MD [address] [place] [address] [email or web address] Primary Oncologist Oncology 02/06/16 documented as of this encounter Additional Source Comments The information contained in this document represents components of the legal health record. It is not the complete legal health record.[facility]
--- OUTSIDE RECORDS SUMMARY | 2024-12-05 18:26 | XMS_ITS | Encounter Summary ---
Author Organization [facility] Address [address] [place] [address] Phone Care Team Providers Care Cash Register Servicer Name Role Phone Self-Referred, Patient Unavailable Unavailab Benito Morrow MD, MPH Unavailable [phone] Jeanne Killian MD Primary Care Provider [phone] Jeanne Killian MD Primary Care Provider Puma Kang MD, MPH Unavailable [phone] Eric Stevenson MD Unavailable [phone] Geri Parks MD Unavailable [phone] Encounter Details Date Type Department Care Team (Late st Contact Info) Description 01/19/2016 Procedure Pass [facility] 75 [place] [address] Social History Tobacco Use Types Packs/Day Years [...] 04/04/2025 1:00 PM EST [facility] [address] Benito Mcconnell MD, MPH [address] [place] [address] [email or web address] documented as of this encounter Visit Diagnoses Not on filedocumented in this encounter Care Teams Cash Register Servicer Relationship Specialty Start Date End Date Jeanne Killian MD [address] [facility] [address] [place] [address] PCP - General Internal Medicine 01/20/16 Jeanne Killian MD [address] [facility] [address] [place] [address] PCP - General Internal Medicine 01/19/16 01/19/16 Self-Referred, Patient 12/29/15 Benito Mcconnell MD, MPH [address] [place] [address] [address] [place] [address] [email or web address]@[email or web address] Primary Oncologist Urology 12/29/15 Puma Kang MD, MPH [address] [place] [address], ASB1- L2 [place] [address] ROSANNA@[email or web address] Radiation Oncology 02/06/16 Eric Stevenson MD [address] [place] [address], [address] [place] [address] [email or web address] Urology 02/06/16 Geri Parks MD [address] [place] [address] [email or web address] Primary Oncologist Oncology 02/06/16 documented as of this encounter Additional Source Comments The information contained in this document represents components of the legal health record. It is not the complete legal health record.[facility]
--- OUTSIDE RECORDS SUMMARY | 2024-12-05 18:26 | XMS_ITS | Encounter Summary ---
Author Organization [facility] Address [address] [place] [address] Care Team Providers Care Retrimmer Name Role Phone Enedelia Rdz MD Primary Care Provider + Encounter Details Date Type Department Care Team (Late st Contact Info) Description 06/25/2024 Lab Requisition [facility] - Main Lab [address] [facility] [place] [address] Enedelia Rdz MD [address] [id number] Chronic kidney disease, unspecified; Gastro-esophageal reflux disease [...] mmol/L LAB CHEMISTRY METHOD 06/25/2024 3:01 PM [facility] Potassium 3.9 3.5 - 5.5 mmol/L LAB CHEMISTRY METHOD 06/25/2024 3:01 PM [facility] Chloride 107 96 - 110 mmol/L LAB CHEMISTRY METHOD 06/25/2024 3:01 PM [facility] CO2 27 21 - 32 mmol/L LAB CHEMISTRY METHOD 06/25/2024 3:01 PM [facility] Anion Gap 6 3 - 11 LAB CHEMISTRY METHOD 06/25/2024 3:01 PM [facility] Glucose 60(L) 70 - 100 mg/dL LAB CHEMISTRY METHOD 06/25/2024 3:01 PM [facility] BUN 25 5 - 25 mg/dL LAB CHEMISTRY METHOD 06/25/2024 3:01 PM [facility] Creatinine 0.74 0.50 - 1.10 mg/dL LAB CHEMISTRY METHOD 06/25/2024 3:01 PM [facility] eGFR 84 >=60 mL/min/1. 73m2 LAB CHEMISTRY METHOD 06/25/2024 3:01 PM [facility] Comment:Calculation based on the Chronic Kidney Disease Epidemiology Collaboration (CKD-EPI) equation refit without adjustment for race. BUN/Creatinine Ratio 33.8 LAB CHEMISTRY METHOD 06/25/2024 3:01 PM [facility] Calcium 8.8 8.5 - 10.5 mg/dL LAB CHEMISTRY METHOD 06/25/2024 3:01 PM [facility] Blood Venous blood specimen / Unknown Venipuncture / Unknown 06/25/2024 7:57 AM EDT 06/25/2024 11:58 AM EDT us Enedelia Rdz MD LAB BLOOD ORDERABLES Fin al Result [facility] [address] [place] [address], * (ABNORMAL) Complete blood count (06/25/2024 7:57 AM EDT) WBC 11.3(H) 4.8 - 10.8 K/mcL LAB HEMETOLOGY METHOD 06/25/2024 12:56 PM EDT [facility] RBC 3.20(L) 3.80 - 4.80 M/mcL LAB HEMETOLOGY METHOD 06/25/2024 12:56 PM EDT [facility] Hemoglobin 9.9(L) 11.5 - 16.0 g/dL LAB HEMETOLOGY METHOD 06/25/2024 12:56 PM EDT [facility] Hematocrit 30.7(L) 35.0 - 47.0 % LAB HEMETOLOGY METHOD 06/25/2024 12:56 PM EDT [facility] MCV 95.0 79.0 - 98.0 FL LAB HEMETOLOGY METHOD 06/25/2024 12:56 PM EDT [facility] MCH 30.7 27.0 - 32.0 pcg LAB HEMETOLOGY METHOD 06/25/2024 12:56 PM EDT [facility] MCHC 32.2 32.0 - 37.0 g/dL LAB HEMETOLOGY METHOD 06/25/2024 12:56 PM EDT [facility] RDW 14.1 11.0 - 15.0 % LAB HEMETOLOGY METHOD 06/25/2024 12:56 PM EDT [facility] Platelets 209 130 - 400 K/mcL LAB HEMETOLOGY METHOD 06/25/2024 12:56 PM EDT [facility] MPV 10.4 7.0 - 11.0 FL LAB HEMETOLOGY METHOD 06/25/2024 12:56 PM EDT [facility] NRBC 0.0 <1.0 % LAB HEMETOLOGY METHOD 06/25/2024 12:56 PM EDT [facility] NRBC Absolute 0.00 <0.10 K/mcL LAB HEMETOLOGY METHOD 06/25/2024 12:56 PM EDT [facility] Blood Venous blood specimen / Unknown Venipuncture / Unknown 06/25/2024 7:57 AM EDT 06/25/2024 11:58 AM EDT us Enedelia Rdz MD LAB BLOOD ORDERABLES Fin al Result [facility] [address] [place] [address], documented in this encounter Visit Diagnoses Diagnosis Chronic kidney disease, unspecified Gastro-esophageal reflux disease without esophagitis Essential (primary) hypertension Unspecified essential hypertension Thrombocytopenia, unspecified (CMS/HCC V24) Thrombocytopenia, unspecified documented in this encounter Care Teams Retrimmer Relationship Specialty Start Date End Date Enedelia Rdz MD [address] [place] [address] PCP - General Family Medicine 06/22/24 documented as of this encounter
--- OUTSIDE RECORDS SUMMARY | 2024-12-05 18:26 | XMS_ITS | Encounter Summary ---
Author Organization [facility] Address [address] [place] [address] Phone Care Team Providers Care Curb Attendant Name Role Phone Self-Referred, Patient Unavailable Unavailab Benito Morrow MD, MPH Unavailable [phone] Jeanne Killian MD Primary Care Provider [phone] Jeanne Killian MD Primary Care Provider Puma Kang MD, MPH Unavailable [phone] Eric Stevenson MD Unavailable [phone] Geri Parks MD Unavailable [phone] Encounter Details Date Type Department Care Team (Late st Contact Info) Description 01/19/2016 Procedure Pass [facility] 75 [place] [address] Social History Tobacco Use Types Packs/Day Years [...] Description 04/04/2025 1:00 PM EST [facility] [address] Benito Mcconnell MD, MPH [address] [place] [address] [email or web address] documented as of this encounter Visit Diagnoses Not on filedocumented in this encounter Care Teams Curb Attendant Relationship Specialty Start Date End Date Jeanne Killian MD [address] [place] [address] PCP - General Internal Medicine 01/20/16 Jeanen Killian MD [address] [place] [address] PCP - General Internal Medicine 01/19/16 01/19/16 Self-Referred, Patient 12/29/15 Benito Mcconnell MD, MPH [address] [place] [address] [address] [place] [address] [email or web address] Primary Oncologist Urology 12/29/15 Puma Kang MD, MPH [address] [place] [address], ASB1- L2 [place] [address] ROSANNA@[email or web address] Radiation Oncology 02/06/16 Eric Stevenson MD [address] [place] [address], [address] [place] [address] [email or web address] Urology 02/06/16 Geri Parks MD [address] [place] [address] [email or web address] Primary Oncologist Oncology 02/06/16 documented as of this encounter Additional Source Comments The information contained in this document represents components of the legal health record. It is not the complete legal health record.[facility]
--- OUTSIDE RECORDS SUMMARY | 2024-12-05 18:26 | XMS_ITS | Encounter Summary ---
Author Organization [facility] Address [address] [place] [address] Care Team Providers Care Administrative Support Associate Name Role Phone Enedelia Rdz MD Primary Care Provider + Encounter Details Date Type Department Care Team (Late st Contact Info) Description 06/22/2024 Lab Requisition [facility] - Main Lab 299 [facility] [employer] [place] [address] Enedelia Rdz MD [address] [address] Chronic kidney disease, unspecified; Essential [...] * (ABNORMAL) Magnesium (06/22/2024 6:36 AM EDT) [facility] Magnesium 1.5(L) 1.9 - 2.6 mg/dL LAB CHEMISTRY METHOD 06/22/2024 9:32 AM EDT [facility] Blood Venous blood specimen / Unknown Venipuncture / Unknown 06/22/2024 6:36 AM EDT 06/22/2024 8:02 AM EDT us Enedelia Rdz MD LAB BLOOD ORDERABLES Fin al Result [facility] [address] [place] [address], * (ABNORMAL) Vitamin B12 (06/22/2024 6:36 AM EDT) [facility] Vitamin B-12 1,115(H) 250 - 900 pcg/mL LAB CHEMISTRY METHOD 06/22/2024 9:55 AM EDT [facility] Blood Venous blood specimen / Unknown Venipuncture / Unknown 06/22/2024 6:36 AM EDT 06/22/2024 8:02 AM EDT Enedelia Rdz MD LAB BLOOD ORDERABLES Fin al Result [facility] [address] [place] [address], [place] [phone] * Folate (06/22/2024 6:36 AM EDT) [facility] Folate 9.5 2.8 - 17.0 ng/ml LAB CHEMISTRY METHOD 06/22/2024 9:55 AM EDT [facility] Blood Venous blood specimen / Unknown Venipuncture / Unknown 06/22/2024 6:36 AM EDT 06/22/2024 8:02 AM EDT Enedelia Rdz MD LAB BLOOD ORDERABLES Fin al Result [facility] [address] [place] [address], [place] [phone] * (ABNORMAL) Comprehensive metabolic panel (06/22/2024 6:36 AM EDT) [facility] Sodium 138 133 - 145 mmol/L LAB CHEMISTRY METHOD 06/22/2024 9:32 AM EDT [facility] Potassium 3.9 3.5 - 5.5 mmol/L LAB CHEMISTRY METHOD 06/22/2024 9:32 AM EDT [facility] Chloride 105 96 - 110 mmol/L LAB CHEMISTRY METHOD 06/22/2024 9:32 AM EDT [facility] CO2 28 21 - [...] LAB CHEMISTRY METHOD 06/22/2024 9:32 AM EDT [facility] Blood Venous blood specimen / Unknown Venipuncture / Unknown 06/22/2024 6:36 AM EDT 06/22/2024 8:02 AM EDT us Enedelia Rdz MD LAB BLOOD ORDERABLES Fin al Result [facility] [address] [place] [address], * (ABNORMAL) Complete blood count (06/22/2024 6:36 [...] LAB HEMETOLOGY METHOD 06/22/2024 9:02 AM EDT [facility] Platelets 108(L) 130 - 400 K/mcL LAB HEMETOLOGY METHOD 06/22/2024 9:02 AM EDT [facility] MPV 10.2 7.0 - 11.0 FL LAB HEMETOLOGY METHOD 06/22/2024 9:02 AM EDT [facility] NRBC 0.0 <1.0 % LAB HEMETOLOGY METHOD 06/22/2024 9:02 AM EDT [facility] NRBC Absolute 0.00 <0.10 K/mcL LAB HEMETOLOGY METHOD 06/22/2024 9:02 AM EDT [facility] Blood Venous blood specimen / Unknown Venipuncture / Unknown 06/22/2024 6:36 AM EDT 06/22/2024 8:02 AM EDT us Enedelia Rdz MD LAB BLOOD ORDERABLES Fin al Result [facility] [address] [place] [address], documented in this encounter Visit Diagnoses Diagnosis Chronic kidney disease, unspecified Essential (primary) hypertension Unspecified essential hypertension Chronic obstructive pulmonary disease, unspecified (CMS/HCC V24, CMS/HCC V28) Gastro-esophageal reflux disease without esophagitis Thrombocytopenia, unspecified (CMS/HCC V24) Thrombocytopenia, unspecified documented in this encounter Care Teams Administrative Support Associate Relationship Specialty Start Date End Date Enedelia Rdz MD [address] [place] [address] PCP - General Family Medicine 06/22/24 documented as of this encounter
--- OUTSIDE RECORDS SUMMARY | 2024-12-05 18:26 | XMS_ITS | Encounter Summary ---
Author Organization [facility] Address [address] [place] [address] [place] [address] Phone Care Team Providers Care Aircraft Structural Repair Mechanic Name Role Phone Self-Referred, Patient Unavailable Unavailab Benito Morrow MD, MPH Unavailable [phone] Jeanne Killian MD Primary Care Provider [phone] Puma Kang MD, MPH Unavailable [phone] Eric Stevenson MD Unavailable [phone] Geri Parks MD Unavailable [phone] Encounter Details Date Type Department Care Team (Late st Contact Info) Description 06/16/2017 Procedure Pass [facility] Radiology 75 [place] [address] Social History Tobacco Use Types Packs/Day Years [...] Description 04/04/2025 1:00 PM EST Office Visit [address] [address] Benito Mcconnell MD, MPH [address] [place] [address] [email or web address] documented as of this encounter Visit Diagnoses Not on filedocumented in this encounter Care Teams Aircraft Structural Repair Mechanic Relationship Specialty Start Date End Date Jeanne Killian MD [address] [place] [address] PCP - General Internal Medicine 01/20/16 Self-Referred, Patient 12/29/15 Benito Mcconnell MD, MPH 45 [facility] [address] [place] [address] [email or web address] Primary Oncologist Urology 12/29/15 Puma Kang MD, MPH 75 [facility], [facility]1- L2 [place] [address] ROSANNA@[email or web address] Radiation Oncology 02/06/16 Eric Stevenson MD [address] [place] [address], [address] [place] [address] [email or web address] Urology 02/06/16 Geri Parks MD [address] [place] [address] [email or web address] Primary Oncologist Oncology 02/06/16 documented as of this encounter Additional Source Comments The information contained in this document represents components of the legal health record. It is not the complete legal health record.[facility]
--- OUTSIDE RECORDS SUMMARY | 2024-12-05 18:26 | XMS_ITS | Patient Health Record ---
Author Organization [facility] Address [address] [facility] [address] Care Team Providers Care Chief Console Operator Name Role Phone Jeanne Killian MD Primary Care Provider Unavaila ble Black, Tessa Unavailable [phone] Allergies Allergen (clinical drug ingredient) Drug/Non Drug [...] Problem Acquired hammer toe of right foot (6734162548072308 ) Other hammer toe(s) (acquired), right foot (M20.41) Active confirmed Problem Acquired hammer toe of left foot (8396754699390386 ) Other hammer toe(s) (acquired), left foot (M20.42) Active confirmed Problem Acquired hallux valgus (78491905) Hallux valgus (acquired), left foot (M20.12) Active confirmed Problem Acquired hallux valgus (09404370) Hallux valgus (acquired), right foot (M20.11) Active confirmed Problem Localized, primary osteoarthritis of the ankle and/or foot (479496548) Osteoarthritis of right ankle and foot (M19.071) Active confirmed Problem Localized, primary osteoarthritis of the ankle and/or foot (449178390) Osteoarthritis of left ankle and foot (M19.072) Active confirmed Plan Of Treatment No Information Insurance Providers Payer Name Payer Address Payer Phone Subscriber Number Group Number Insured Name Patient Relationship to Insured Coverage Start Date Coverage End Date Medicare National Govt [employer] [address] [place] [address] [id number] Nayeli Fofana Self - patient is the insured [employer] [address] [place] [address] [phone] [id number] Nayeli Fofana Self - patient is the insured Medical (General) History Medical History History ICD Code Arthritis asthma Gall bladder problems High blood pressure Kidney disease Liver disease Osteoporosis Measles Mumps Chicken pox Transfusions Congenitive Hepatic Fibrosis Surgical History Surgery Date(Month/Year) Breast Surgery x2 1978,2020 kidney surgery 2016 gall bladder 2013 hernia
--- OUTSIDE RECORDS SUMMARY | 2024-12-05 18:26 | XMS_ITS | Encounter Summary ---
Author Organization [facility] Address [address] [place] [address] [place] [address] Phone Care Team Providers Care Shipping And Receiving Operator Name Role Phone Self-Referred, Patient Unavailable Unavailab Benito Morrow MD, MPH Unavailable [phone] Jeanne Killian MD Primary Care Provider [phone] Puma Kang MD, MPH Unavailable [phone] Eric Stevenson MD Unavailable [phone] Geri Parks MD Unavailable [phone] Encounter Details Date Type Department Care Team (Late st Contact Info) Description 06/16/2017 Procedure Pass [facility]'s Radiology [address] [place] [address] Social History Tobacco Use Types Packs/Day Years [...] Description 04/04/2025 1:00 PM EST Office Visit [address] [address] Benito Mcconnell MD, MPH [address] [place] [address] [email or web address] documented as of this encounter Visit Diagnoses Not on filedocumented in this encounter Care Teams Shipping And Receiving Operator Relationship Specialty Start Date End Date Jeanne Killian MD [address] [facility] [place] [address] PCP - General Internal Medicine 01/20/16 Self-Referred, Patient 12/29/15 Benito Mcconnell MD, MPH [address] [facility] [address] [place] [address] [email or web address] Primary Oncologist Urology 12/29/15 Puma Kang MD, MPH 75 [facility], [facility]1- L[address] [place] [address] ROSANNA@[email or web address] Radiation Oncology 02/06/16 Eric Stevenson MD [address] [place] [address], [address] [place] [address] [email or web address] Urology 02/06/16 Geri Parks MD [address] [place] [address] [email or web address] Primary Oncologist Oncology 02/06/16 documented as of this encounter Additional Source Comments The information contained in this document represents components of the legal health record. It is not the complete legal health record.[facility]
--- OUTSIDE RECORDS SUMMARY | 2024-12-05 18:26 | XMS_ITS | Encounter Summary ---
Author Organization [facility] Address [address] [place] [address] Phone Care Team Providers Care Business Analysis Analyst Name Role Phone Self-Referred, Patient Unavailable Unavailab Benito Morrow MD, MPH Unavailable [phone] Jeanne Killian MD Primary Care Provider [phone] Puma Kang MD, MPH Unavailable [phone] Eric Stevenson MD Unavailable [phone] Geri Parks MD Unavailable Reason for Referral * MRI/CAT Scan - Closed Specialty Diagnoses / Procedures Referred By Contmigel t Referred To Contact Radiology Diagnoses Malignant neoplasm of lateral wall of urinary bladder Procedures CT 3D Reconstruction Abdomen and Pelvis Benito Mcconnell MD, MPH Phone: tel: fax: mailto:[email or web address] Referral ID Status Reason Start Date Expiration Date Visits Re quested Visits Authorized [id number] Closed 10/12/2018 10/12/2019 1 1 Encounter Details Date Type Department Care Team (Late st Contact Info) Description 10/12/2018 Ancillary Orders [facility] Urology [address] [place], [place] [address] [place] [address] Benito Mcconnell MD, MPH [address] [place] [address] [email or web address] Malignant neoplasm of lateral wall of [...] Description 04/04/2025 1:00 PM EST Office Visit [address] [address] Benito Mcconnell MD, MPH [address] [place] [address] [email or web address] documented as of this encounter Results [...] bladder documented in this encounter Care Teams Business Analysis Analyst Relationship Specialty Start Date End Date Jeanne Killian MD [address] [facility] [place] [address] PCP - General Internal Medicine 01/20/16 Self-Referred, Patient 12/29/15 Benito Mcconnell MD, MPH [address] [place] [address] 11[address] [place] [address] [email or web address] Primary Oncologist Urology 12/29/15 Puma Kang MD, MPH [address] [place] [address] ASB1- [address]2 [place] [address] [email or web address] Radiation Oncology 02/06/16 [place] [address] [place] [address], [address] [place] [address] [email or web address] Urology 02/06/16 Geri Parks MD [address] [place] [address] [email or web address] Primary Oncologist Oncology 02/06/16 documented as of this encounter Additional Source Comments The information contained in this document represents components of the legal health record. It is not the complete legal health record.[facility]
--- OUTSIDE RECORDS SUMMARY | 2024-12-05 18:26 | XMS_ITS | Encounter Summary ---
Author Organization [facility] Address [address] [place] [address] Phone Care Team Providers Care Magnetic Observer Name Role Phone Self-Referred, Patient Unavailable Unavailab Benito Morrow MD, MPH Unavailable [phone] Jeanne Killian MD Primary Care Provider [phone] Puma Kang MD, MPH Unavailable [phone] Eric Stevenson MD Unavailable [phone] Geri Parks MD Unavailable [phone] Encounter Details Date Type Department Care Team (Late st Contact Info) Description 06/04/2021 Procedure Pass [facility] [address] [place] [address] Social History Tobacco Use Types Packs/Day Years [...] Description 04/04/2025 1:00 PM EST [facility] [address] [place] [address] Benito Mcconnell MD, MPH [address] [place] [address] 11[address] [place] [address] [email or web address] documented as of this encounter Visit Diagnoses Not on filedocumented in this encounter Care Teams Magnetic Observer Relationship Specialty Start Date End Date eJanne Killian MD [address] [facility] [place] [address] PCP - General Internal Medicine 01/20/16 Self-Referred, Patient 12/29/15 Benito Mcconnell MD, MPH [address] [place] [address] [address] [place] [address] [email or web address] Primary Oncologist Urology 12/29/15 Puma Kang MD, MPH [address] [place] [address], [facility]1- L2 [place] [address] ROSANNA@[email or web address] Radiation Oncology 02/06/16 Eric Stevenson MD [address] [place] [address], [address] [address] [email or web address] Urology 02/06/16 Geri Parks MD [address] [place] [address] [email or web address] Primary Oncologist Oncology 02/06/16 documented as of this encounter Additional Source Comments The information contained in this document represents components of the legal health record. It is not the complete legal health record.[facility]
--- OUTSIDE RECORDS SUMMARY | 2024-12-05 18:26 | XMS_ITS | Encounter Summary ---
Author Organization [facility] Address [address] [place] [address] [place] [address] Phone Care Team Providers Care Steward/Stewardess Second Class Name Role Phone Self-Referred, Patient Unavailable Unavailab le Benito Mcconnell MD, MPH Unavailable [phone] Jeanne Killian MD Primary Care Provider [phone] Puma Kang MD, MPH Unavailable [phone] Eric Stevenson MD Unavailable [phone] Geri Parks MD Unavailable [phone] Reason for Referral * MRI/CAT Scan - Closed Specialty Diagnoses / Procedures Referred By Contmigel t Referred To Contact Procedures CT Abdomen Outside (No Interpretation) Benito Mcconnell MD, MPH Phone: tel: fax: mailto:[email or web address] Referral ID Status Reason Start Date Expiration Date Visits Re quested Visits Authorized [id number] Closed 02/18/2017 02/18/2018 1 1 Encounter Details Date Type Department Care Team (Late st Contact Info) Description 02/18/2017 Transcribe Orders [facility] [address] [place] [address] [email or web address] [email or web address] Social History Tobacco Use Types Packs/Day Years [...] Description 04/04/2025 1:00 PM EST [facility] [address] [place] [address] Benito Mcconnell MD, MPH [address] [place], [place] [address] [place], [place] [email or web address] documented as of this encounter Results * CT Abdomen Outside (No Interpretation) (02/18/2017 12:00 AM EST) Narrative [facility] - 02/18/2017 10:27 AM EST This study is for PACS storage only and not for interpretation. us Benito Mcconnell MD, MPH IMG OUTSIDE IMAGING W/OUT INTERPRETATION Final Result Performing Organization Address City/State/[facility] Co de Phone Number [facility] documented in this encounter Visit Diagnoses Not on filedocumented in this encounter Care Teams Steward/Stewardess Second Class Relationship Specialty Start Date End Date Jeanne Killian MD [address] [facility] [place] [address] PCP - General Internal Medicine 01/20/16 Self-Referred, Patient 12/29/15 Benito Mcconnell MD, MPH [address] [place] [address] 11-3 [place], [place] [email or web address] Primary Oncologist Urology 12/29/15 Puma Kang MD, MPH [address] [place] [address], ASB1- L2 [place], [place] [email or web address] Radiation Oncology 02/06/16 Eric Stevenson MD [address] [place] [address], [address] [place] [address] [email or web address] Urology 02/06/16 Geri Parks MD [address] [place] [address] [email or web address] Primary Oncologist Oncology 02/06/16 documented as of this encounter Additional Source Comments The information contained in this document represents components of the legal health record. It is not the complete legal health record.[facility]
--- OUTSIDE RECORDS SUMMARY | 2024-12-05 18:26 | XMS_ITS | Clinical Summary ---
Author Organization [address] Address [address] [place] [phone] Phone Care Team Providers Care Operations And Maintenance Manager Name Role Phone Elder, Enedelia Caldwell MD [...] without esophagitis Essential (primary) hypertension Thrombocytopenia, unspecified ([facility] V24) [facility] DEXA AXIAL SKELETON Routine 01/04/2018 2:07 PM EDT Age-related osteoporosis without current pathological fracture from Last 3 Months or Most Recently Relevant to Health Maintenance Results * Basic metabolic panel (07/02/2024 8:30 AM EDT) Sodium 140 133 - 145 mmol/L LAB CHEMISTRY METHOD 07/02/2024 3:00 PM EDT [facility] Potassium 4.5 3.5 - 5.5 mmol/L LAB CHEMISTRY METHOD 07/02/2024 3:00 PM EDT [facility] Chloride 109 96 - 110 mmol/L LAB CHEMISTRY METHOD 07/02/2024 3:00 PM EDT [facility] CO2 22 21 - 32 mmol/L LAB CHEMISTRY METHOD 07/02/2024 3:00 PM EDT [facility] Anion Gap 9 3 - 11 LAB CHEMISTRY METHOD 07/02/2024 3:00 PM EDT [facility] Glucose 78 70 - 100 mg/dL LAB CHEMISTRY METHOD 07/02/2024 3:00 PM EDT [facility] BUN 22 5 - 25 mg/dL LAB CHEMISTRY METHOD 07/02/2024 3:00 PM [facility] Creatinine 0.96 0.50 - 1.10 mg/dL LAB CHEMISTRY METHOD 07/02/2024 3:00 PM [facility] eGFR 62 >=60 mL/min/1. 73m2 LAB CHEMISTRY METHOD 07/02/2024 3:00 PM EDT [facility] Comment:Calculation based on the Chronic Kidney Disease Epidemiology Collaboration (CKD-EPI) equation refit without adjustment for race. BUN/Creatinine Ratio 22.9 LAB CHEMISTRY METHOD 07/02/2024 3:00 PM EDT [facility] Calcium 8.8 8.5 - 10.5 mg/dL LAB CHEMISTRY METHOD 07/02/2024 3:00 PM T [facility] Blood Venous blood specimen / Unknown Venipuncture / Unknown 07/02/2024 8:30 AM EDT 07/02/2024 11:09 AM EDT us Enedelia Rdz MD LAB BLOOD ORDERABLES Fin al Result [facility] [address] [place] [address], * JOSE LUIS DEXA AXIAL SKELETON (01/04/2018 2:07 PM EDT) Anatomical Region Laterality Modality Mammography 01/04/2018 12:5 7 PM EDT Narrative 01/04/2018 2:07 PM EDT [facility] Diagnostic Imaging Department [address] [place] [address] Patient: BONNIE ZAMBRANO Hazel Carbajal./Age/Sex: 1950 - 67 - F Unit#: [id number] Location/Status: SPDIMAM/REG CLI Mnemonic[facility] Ordering Physician: JEANNE KILLIAN MD Jose [...] probability of hip fracture of 7.0%. Code 25097 Dictating Physician: PEE KILGORE MD Electronically Signed by: PEE KILGORE MD Dic Date/Time: 01/04/181403 Sign date/Time: 01/04/181406 Procedure Note Pee Kilgore MD - 03/02/2022 [facility] Diagnostic Imaging Department [address] [place] [address] Patient: BONNIE ZAMBRANO Hazel Barrientos/Age/Sex: 1950 - 67 - F Unit#: [id number] Location/Status: [facility] Mnemonic/Ordering Site: [facility] Ordering Physician: JEANNE KILLIAN MD [facility] Dexa Axial Skeleton - 01/04/18 - [...] density of the femurs bilaterally is 0.745 gm/pa1ulgbo is 74% of that of young normals [...] probability of hip fracture of 7.0%. Code 60784 Dictating Physician: PEE KILGORE MD Electronically Signed by: PEE KILGORE MD Dic Date/Time: 01/04/18 1404 Sign date/Time: 01/04/18 140 Jeanne Killian MD IMG BI PROCEDURES Final Resul t from Last 3 Months or Most Recently Relevant to Health Maintenance Insurance [address] [place] MEDICARE [facility] Care Teams Operations And Maintenance Manager Relationship Specialty Start Date End Date Enedelia Rdz MD [address] [place] [address] PCP - General Family Medicine 06/22/24
--- OUTSIDE RECORDS SUMMARY | 2024-12-05 18:26 | XMS_ITS | Clinical Summary ---
Author Organization [facility] Address [address] [place] [address] Phone Care Team Providers Care Staff Design Engineer Name Role Phone Self-Referred, Patient Unavailable Unavailab Benito Morrow MD, MPH Unavailable [phone] Jeanne Killian MD Primary Care Provider [phone] Puma Kang MD, MPH Unavailable [phone] Eric Stevenson MD Unavailable [phone] Geri Parks MD Unavailable [phone] Allergies Active Allergy Reactions Criticality Noted Date [...] - 10/03/2024 11:59 PM EDT Hospital Encounter [facility] [address] [address] Benito Mcconnell MD, MPH Discharge Disposition: Home or Self Care 04/05/2024 Procedure Pass [facility] [address] [place] [address] from Last 3 Months Family History Medical [...] Description 04/04/2025 1:00 PM EST Office Visit [facility] [address] [place] [address] Benito Mcconnell MD, MPH [address] [place] [address] [email or web address] Health Maintenance Due Date Last Done Comments [...] 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 10/03/2024 1:02 PM EDT 10/03/2024 1:06 PM EDT Benito Mcconnell MD, MPH POINT OF CARE TEST ORDERA BLES Final Result [facility] CT & MRI [address] [place] [id number] * (ABNORMAL) Basic metabolic panel (01/18/2020 10:12 AM EST) Pathologist [facility] SODIUM 139 136 - 145 mmol/L [facility] POTASSIUM 4.4 3.4 - 5.1 mmol/L [facility] CHLORIDE 104 98 - 107 mmol/L [facility] CO2 28 22 - 31 mmol/L [facility] BUN 24(H) 6 - 23 mg/dL [facility] Comment:VERIFIED CREATININE 1.06 0.50 - 1.20 mg/dL [facility] GLUCOSE 101(H) 70 - 100 mg/dL [facility] CALCIUM 9.4 8.8 - 10.7 mg/dL [facility] EGFR 53(L) >59 mL/min/1.7 3m2 [facility] Comment:Estimated glomerular filtration rate calculated using the CKD-EPI equation. ANION GAP 7 7 - 17 mmol/L [facility] 01/18/2020 10:1 2 AM EST 01/18/2020 10:18 AM EST Lilia Sellers PA-C LAB BLOOD ORDERABL ES Final Result [facility] [address] [place] [address] from Last 3 Months or Most Recently Relevant to Health Maintenance Insurance MEDICARE PART A & B [employer] MEDEX SUPPLEMENT MEDICARE PART A & B [employer] MEDEX SUPPLEMENT MEDICARE PART A & B [employer] SUPPLEMENT MEDICARE PART A & B [employer] SUPPLEMENT MEDICARE PART A & B [employer] SUPPLEMENT MEDICARE PART A & B [employer] MEDEX SUPPLEMENT MEDICARE PART A & B [employer] MEDEX SUPPLEMENT MEDICARE PART A & B [employer] MEDEX SUPPLEMENT MEDICARE PART A & B [employer] MEDEX SUPPLEMENT Care Teams Staff Design Engineer Relationship Specialty Start Date End Date Jeanne Killian MD [address] [place] [address] PCP - General Internal Medicine 01/20/16 Self-Referred, Patient 12/29/15 Benito Mcconnell MD, MPH [address] [place] [address] 11[address] [place] [address] [email or web address] Primary Oncologist Urology 12/29/15 Puma Kang MD, MPH [address] [place] [address], ASB1- L2 [place] [address] [email or web address]@[email or web address] Radiation Oncology 02/06/16 Eric Stevenson MD [facility], [address] [place] [address] [email or web address] Urology 02/06/16 Geri Parks MD [address] [place] [address] [email or web address] Primary Oncologist Oncology 02/06/16 Additional Source Comments The information contained in this document represents components of the legal health record. It is not the complete legal health record.[facility]
--- NOTE | 2024-12-05 18:48 | PC.NURSE ---
pt reports right hip/groin area pain
[2024-12-05 18:53] LABS: Hematocrit 27.0 % (37.0-47.0); Hemoglobin 9.4 g/dl (12.0-16.0); Imm Gran Abs Auto 0.01 X10*3/uL (0.00-0.03); Imm Gran Pct Auto 0.3 % (0.0-0.4); Lymphocytes Absolute Auto 0.6 X10*3/uL (1.2-4.9); MANUAL DIFF FLAG SCAN; Mean Corpuscular HGB Conc 34.8 g/dl (31.0-35.0); Mean Corpuscular Hemoglobin 31.0 pg (27.0-33.0); Mean Corpuscular Volume 89.1 fL (80.0-98.0); NRBC Abs Auto 0.000 X10*3/uL (0.0-0.012); NRBC Pct Auto 0.0 /100WBC (0.0-0.2); PLT CLUMP 1; Red Blood Count 3.03 X10*6/uL (4.20-5.50); SCAN SMEAR FLAG 1; White Blood Count 3.5 X10*3/uL (4.8-10.8)
[2024-12-05 19:06] LABS: Alanine Aminotransferase 16 U/L (0-31); Albumin Level 3.3 g/dL (3.5-5.0); Alkaline Phosphatase 74 U/L (39-117); Anion Gap 12 (12-20); Aspartate Amino Transferase 38 U/L (5-31); Blood Urea Nitrogen 24 mg/dL (9-16); Calcium 8.4 mg/dL (8.4-10.2); Carbon Dioxide 20 mmol/L (22-29); Chloride 111 mmol/L (96-108); Creatinine Clr Calc Pharmacy 37.3; Estimated Glomerular Filt Rate 42; Potassium 4.5 mmol/L (3.3-5.1); Sodium 138 mmol/L (135-145); Total Protein 5.8 g/dL (6.5-8.0); Troponin-I High Sensitivity 20.8 ng/L (<3.5-17.0)
[2024-12-05 19:08] LABS: Platelet Count 59 X10*3/uL (160-400)
[2024-12-05 20:24] VITALS: BP 136/51; PULSE 68; RESP 14; O2SAT 98
[2024-12-05 20:35] LABS: Appearance Urine Clear; Glucose Urine UA Negative (Negative); PH 5.5 (5.0-9.0); Specific Gravity - Urine 1.020 (1.005-1.025); UMIC TRIGGER UACC YES
--- NOTE | 2024-12-05 20:40 | ED_ITS ---
HPI - Weakness General Chief complaint: Weakness Stated complaint: slid off couch, dizzy,weak Time Seen by Provider: 12/05/24 20:05 Source: patient Mode of arrival: ambulatory Limitations: no limitations History of Present Illness ED Provider: Mj RUBALCAVA HPI Narrative: The patient is a 74-year-old female with history of CKD, thrombocytopenia, CHF on Lasix, previous bladder CA, chronic anemia, GERD, COPD, and hypertension, presenting to the ED reporting over the past few days she has been feeling increasing weakness, malaise, and a congested sounding but ultimately nonproductive cough. The patient reports in June she was diagnosed with influenza complicated by a type 2 NSTEMI, for which she was transferred to [facility] from this facility, underwent cardiac catheterization which did not require balloon or stenting. The patient was discharged to rehab for 2-3 weeks, and since that time has been undergoing in-home outpatient cardiac rehab 3 times a week. Patient lives at home alone, however the patient's son contacted her today and noted she was sounding confused, making statements about people helping her take a shower, and her TV being broken which it was not. The patient's son reports he went to get her some soup and when he returned patient had slid from the couch to the floor stating she needed to use the bathroom but was too weak to stand. The patient denied head strike or LOC, and does not take anticoagulation. Patient denies any recent sick contacts, objective fever, chest pain, pleurisy, shortness of breath, hemoptysis, abdominal pain, nausea, vomiting, diarrhea, hematochezia, melena, back pain, dysuria, hematuria, or other recent fall or trauma. Related Data Home Medications ?Medication ?Instructions ?Recorded ?Confirmed cholecalciferol (vitamin D3) 25 25 mcg PO DAILY 11/29/24 mcg (1,000 unit) tablet (Vitamin D3) multivitamin 1 tab PO DAILY 06/12/2411/12 fluticasone furoate 200 1 inh inhalation DAILY 07/1011/29/24 mcg-vilanterol 25 mcg/dose inhalation powder (Breo Ellipta) Previous Rx's ?Medication ?Instructions ?Recorded propranolol 20 mg tablet 20 mg PO BID #180 tabs 05/01 sertraline 50 mg tablet 50 mg PO DAILY #90 tabs 04/14 11/05 aspirin 81 mg chewable tablet 81 mg PO DAILY #30 tabs 06/13/24 alendronate 70 mg tablet 70 mg PO QWEEK #14 tabs 06/12 04/07 lisinopril 20 mg tablet See Rx Instructions PO DAILY #90 07/10/24 tabs spironolactone 50 mg tablet 25 mg (1/2 x 50 mg) PO SAULO LY #90 07/10/24 tabs omeprazole 40 mg capsule,delayed 40 mg PO DAILY@0630 # 90 caps 07/16/24 release atorvastatin 40 mg tablet 40 mg PO DAILY #90 tabs 10/12 06/05 furosemide 20 mg tablet 20 mg PO DAILY #90 tabs 10/12 06/05 Allergies Allergy/AdvReac Type Severity Reaction Status Date / Time cefotetan Allergy Unknown unknown Verified 12/05/24 17:58 cefuroxime (From Ceftin) Allergy Unknown Unknown Verified 12/05/24 17:58 ciprofloxacin (Cipro) Allergy Unknown unknown Verified 12/05/24 17:58 latex Allergy Unknown Unknown Verified 12/05/24 17:58 moxifloxacin (From Avelox) Allergy Unknown Unknown Verified 12/05/24 17:58 prochlorperazine (From Allergy Unknown Unknown Verified 12/05/24 17:58 Compazine) alendronate sodium AdvReac Intermediate Stomach Verified 12/05/24 17:58 Upset amlodipine AdvReac Abdominal Uncoded 12/05/24 17:58 Pain Review of Systems 2 Review of Systems: Yes all other systems are reviewed and are negative [facility] Past Medical History Medical History Hearing loss (HFpEF) heart failure with preserved ejection fraction Cirrhosis Bladder carcinoma Osteoporosis Annual physical exam Restrictive lung disease Pulmonary nodule Allergic rhinitis Atypical ductal hyperplasia of breast COPD (chronic obstructive pulmonary disease) Thrombocytopenia Aortic valve sclerosis Breast CA Depression Essential hypertension Portal hypertension Surgical History H/O colonoscopy History of esophagogastroduodenoscopy (EGD) History of surgery History of inguinal hernia repair Hx of cholecystectomy Family History Family History Father No problems noted. Mother Colon cancer Sister Breast cancer Social History Social History Household Members: None Household Members Other:: lives alone Housing: House Do you presently have visiting nurse or other home services: No Alcohol intake: current Alcohol intake frequency: holidays/special occasions only Patient Tobacco Use Status: Never used Tobacco Smoked in Last 30 Days: No e-Cigarette/Vaping Use: Never Used Second Hand Smoke Exposure: No Use of substances other than those prescribed or required for medical reasons: No Advance Directives: No Advance Directives Information Provided: No Do you have a plan to hurt others: No Plan service: No Current occupational status: retired Cognitive needs: No Hearing needs: No Vision needs: Yes Physical Exam 2 Vital Signs: Vital Signs: Last Vital Signs Temp 98.7 F 12/06/24 09:24 Pulse 75 12/06/24 07:25 Resp 17 12/06/24 07:25 BP 141/57 H 12/06/24 07:25 Pulse Ox 95 12/06/24 07:25 O2 Del Method Room Air 12/06/24 07:25 BMI result Body Mass Index 29.6 CONSTITUTIONAL: The patient appears chronically ill, otherwise non-toxic, well nourished and in no acute distress. Vital signs as documented. HEAD: Atraumatic, normocephalic. EYES: EOMs grossly intact, pupils equal, conjunctiva clear, no exudate. ENT: Nares patent, no discharge. Airway patent, no audible stridor, visible mucosa is pink and moist without noted lesions. NECK: Trachea is midline, no obvious masses or gross abnormalities. CHEST: Symmetric movement, normal appearance. LUNGS: LS present with wheezing noted throughout the right lung and left apex, otherwise clear to auscultation. Non-labored work of breathing. CARDIAC: Regular Rhythm, S1/S2 appreciated, there was a grade 4/6 systolic murmur auscultated over the right sternal border. ABDOMEN: Abdomen soft and non-tender x4 quadrants, no palpable masses or organomegaly. : Deferred. EXTREMITIES: Normal tone, moves all extremities spontaneously without reported pain. No obvious acute injury or deformity noted. No calf tenderness. No pitting edema appreciated. NEURO: Alert and oriented x3, CN II-XII appear grossly intact. Cerebellar Functioning grossly intact. No obvious sensory or motor deficits. Speech clear and appropriate. PSYCH: normal affect, appropriate eye contact, fluid speech, with appropriate response to questioning. No reported suicidality or homicidality. SKIN: Warm, dry, color appropriate, normal turgor. No rashes noted. Course Course Course Narrative: 12/06/2024 0800 Radha Hilton PA-C ---> Observation continues. 12/06/2024 0930 Radha Hilton PA-C ---> Patient evaluated by physical therapy who recommends home with [facility] for snf and physical therapy. 12/06/2024 1100 Radha Hilton PA-C ---> Observation care revealed the the patient does not meet medical necessity for hospitalization. Final disposition of discharge home with home services discussed with the patient. Patient completed observation care at 1100 on 12/06/2024. Medications Administered Discontinued Medications Generic Name Dose Route Start Last Admin Trade Name Freq PRN Reason Stop Dose Admin Acetaminophen 650 mg 12/06/24 07:38 12/06/24 07:46 Acetaminophen 325 Mg Tablet PO 12/06/24 07:39 650 mg ONCE ONE Administration Sodium Chloride 1,000 mls @ 999 mls/hr 12/05/24 21:15 12/05/24 22:25 Ns IV 12/05/24 22:15 Infused .Q1H1M CHUCK Infusion Medical Decision Making Medical Decision Making [facility] Narrative: 9:06 PM 12/05/2024 (Rk RUBALCAVA): The patient is a 74-year-old female with history of CKD, thrombocytopenia, CHF on Lasix, previous bladder CA, chronic anemia, GERD, COPD, and hypertension, presenting to the ED reporting over the past few days she has been feeling increasing weakness, malaise, and a congested sounding but ultimately nonproductive cough. The patient reports in June she was diagnosed with influenza complicated by a type 2 NSTEMI, for which she was transferred to [facility] from this facility, underwent cardiac catheterization which did not require balloon or stenting. The patient was discharged to rehab for 2-3 weeks, and since that time has been undergoing in-home outpatient cardiac rehab 3 times a week. Patient lives at home alone, however the patient's son contacted her today and noted she was sounding confused, making statements about people helping her take a shower, and her TV being broken which it was not. The patient's son reports he went to get her some soup and when he returned patient had slid from the couch to the floor stating she needed to use the bathroom but was too weak to stand. The patient denied head strike or LOC, and does not take anticoagulation. Patient denies any recent sick contacts, objective fever, chest pain, pleurisy, shortness of breath, hemoptysis, abdominal pain, nausea, vomiting, diarrhea, hematochezia, melena, back pain, dysuria, hematuria, or other recent fall or trauma. The patient in the ED is chronically ill-appearing, but otherwise in no acute distress. Exam reveals grade 4/6 systolic murmur over the right sternal border, which patient and family reports as baseline, diffuse wheeze of the right lung, with mild wheeze in the left apex, otherwise clear to auscultation. Abdominal exam is benign, nontender. The patient's laboratory evaluation shows leukopenia at 3.5, anemia with H&H 9.4 and 27.0, thrombocytopenia with platelet count 59,000, and elevated BUN at 24. Patient's leukopenia, anemia, thrombocytopenia, and elevated BUN are all close to the patient's baseline. The patient's EKG is nonischemic, troponin is 20.8, markedly improved compared to previous in June when it was 1400. The patient's urinalysis shows small leukocyte esterase but negative nitrites or WBCs. Viral swabs are pending. The patient's right hip and pelvis x-ray is negative for acute fracture, chest x-ray shows mild bilateral atelectasis, no other acute findings. The patient will be treated with IV fluid hydration, nebulizer for wheezing, and we will await remainder of workup. Due to family report of slight change in baseline mental status we will also obtain head CT. Patient may be suffering from simple viral syndrome, given the patient's weakness with difficulty walking, pending no other definitive diagnosis, the patient will likely require ED observation for case management and PT consultation. 9:22 PM 12/05/2024 (Rk RUBALCAVA): The patient's viral swab has resulted and is positive for COVID. Patient is not hypotensive, hypoxic, febrile, or tachycardic. At this time there was no indication for inpatient admission. We will treat symptomatically and following completion of workup we will hold the patient overnight for PT/case management consultation. 11:14 PM 12/05/2024 (Rk RUBALCAVA): CT has resulted and is negative for acute intracranial pathology. Admission/Observation Consideration of admission/observation: Escalation of care including admission/observation considered Lab Data MDM Lab Attestation statement: I reviewed the patient's lab results. 12/05/24 18:34 12/05/24 18:34 Labs: Lab Results 12/05/24 12/05/24 Range/Units 18:34 20:27 WBC 3.5 L (4.8-10.8) X10*3/uL RBC 3.03 L (4.20-5.50) X10*6/uL Hgb 9.4 L (12.0-16.0) g/dl Hct 27.0 L (37.0-47.0) % MCV 89.1 (80.0-98.0) fL MCH 31.0 (27.0-33.0) pg MCHC 34.8 (31.0-35.0) g/dl RDW 13.7 (11.0-16.0) % Plt Count 59 L D (160-400) X10*3/uL MPV 10.3 (9.4-12.3) fL Immature Gran % (Auto) 0.3 (0.0-0.4) % Neut % (Auto) 73.6 H (45-73) % Lymph % (Auto) 16.8 L (20-40) % [place]ay % (Auto) 7.8 (2-11) % Eos % (Auto) 1.2 (0-4) % Baso % (Auto) 0.3 (0-2) % Lymph # (Auto) 0.6 L (1.2-4.9) X10*3/uL [place] # (Auto) 0.3 (0.1-1.2) X10*3/uL Eos # (Auto) 0.0 (0.0-0.4) X10*3/uL Baso # (Auto) 0.0 (0.0-0.2) X10*3/uL Abs Immat Gran (auto) 0.01 (0.00-0.03) X10*3/uL Absolute Neuts (auto) 2.5 (2.0-8.3) x10*3/uL Absolute Nucleated RBC 0.000 (0.0-0.012) X10*3/uL Nucleated RBC % (auto) 0.0 (0.0-0.2) /100WBC Smear Tech's Comments VERIFIED Sodium 138 (135-145) mmol/L Potassium 4.5 (3.3-5.1) mmol/L Chloride 111 H (96-108) mmol/L Carbon Dioxide 20 L (22-29) mmol/L Anion Gap 12 (12-20) BUN 24 H (9-16) mg/dL Creatinine 1.25 (0.5-1.4) mg/dL Estim Creat Clear Calc 37.3 Estimated GFR 42 Random Glucose 113 (60-115) mg/dL Calcium 8.4 (8.4-10.2) mg/dL Total Bilirubin 0.6 (0.0-1.0) mg/dL AST 38 H (5-31) U/L ALT 16 (0-31) U/L Alkaline Phosphatase 74 (39-117) U/L Troponin I High Sens 20.8 H D (<3.5-17.0) ng/L Total Protein 5.8 L (6.5-8.0) g/dL Albumin 3.3 L (3.5-5.0) g/dL Urine Color Yellow Urine Appearance Clear Urine pH 5.5 (5.0-9.0) Ur Specific [place] 1.020 (1.005-1.025) Urine Protein Negative (Neg-Trace) mg/dL Urine Glucose (UA) Negative (Negative) mg/dL Urine Ketones Trace (Negative) mg/dL Urine Blood Negative (Negative) Urine Nitrite Negative (Negative) Ur Leukocyte Esterase Small (1+) H (Negative) Urine RBC 0-2 (0-2) /HPF Urine WBC 0-5 (0-5) /HPF Ur Squamous Epith Cells 3-5 (0-2) /HPF Urine Bacteria Trace (None Seen) Hyaline Casts 0-2 (0-2) /LPF Influenza Type A (PCR) NEGATIVE (Negative) Influenza Type B (PCR) NEGATIVE (Negative) RSV RNA Qual (PCR) NEGATIVE (Negative) SARS-CoV-2 RNA (RT-PCR) POSITIVE A (Negative) Independent Interpretation I performed an independent interpretation of an: EKG (EKG shows sinus rhythm with a rate of 67, no evidence of acute ischemia, no ST elevation, no ectopy. QTC 416. Compared to previous on 06/12/2024 there are no significant morphology changes.) Radiology Impression Discussion of test interpretation with radiology: I have reviewed the radiologist's reading. Radiologist Impression: CLINICAL HISTORY: weakness, recent heart attack per patient 1 view chest x-ray Comparison: CR/SR - XR CHEST 2V - 07/24/24 10:42 EDT Findings: Mild bilateral atelectasis. No significant pleural effusion or pneumothorax. Similar prominent/enlarged cardiac silhouette. No acute fracture. Similar scattered clips in the right axilla. IMPRESSION: Mild bilateral atelectasis. This document has been electronically signed by: Kamran Leon MD on 12/05/2024 18:33:44 CLINICAL HISTORY: pain fall 5 view, pelvis and right hip Comparison: None provided Findings: No acute fracture or malalignment. Degenerative changes throughout the SI joints, pubic symphysis and hips bilaterally. The soft tissues are unremarkable. IMPRESSION: No acute findings. This document has been electronically signed by: Kamran Leon MD on 12/05/2024 20:16:54 CLINICAL HISTORY: Change in Mental Status CT head without contrast Comparison: None provided Findings: No intra-axial mass, midline shift, hydrocephalus, or acute hemorrhage. Mild heterogeneous low attenuation in the periventricular white matter. There is no sinus or mastoid fluid. The orbits are unremarkable. No skull fracture. IMPRESSION: 1. No acute intracranial findings. 2. Mild chronic periventricular microvascular ischemic disease. This document has been electronically signed by: Hayden Higgins MD on 12/05/2024 22:30:18 Discharge Plan Discharge Clinical Impression: COVID-19, Acute viral syndrome, Weakness Patient Disposition: Home, Self-Care Instructions: COVID-19 (Coronavirus Disease 2019) (ED) Additional Instructions: IF you are prescribed home medications and/or you are taking over the counter medications at home - it is very important you continue to do so as prescribed / directed unless told otherwise. Follow up with your primary care provider. Return to the emergency department immediately if your symptoms worsen or if you develop any numbness, tingling, dizziness, shortness of breath, difficulty breathing, chest pain, blurry vision, loss of vision, nausea, vomiting, abdominal pain, fever, chills, back pain, or any other complaints. Please see the information below about our Patient Portal. If you are not yet enrolled in the [facility] Patient Portal, you will receive an enrollment email invitation following your visit to any [facility] care setting. You may also self-enroll in the Patient Portal by visiting our website: [email or web address] The following information is required to access the Patient Portal: - Your [facility] Medical Record Number - Your personal home email address (must match what is in your electronic medical record, Registration staff can assist with this) - Name - Date of Capabilities of the Patient Portal: - Message some providers - View upcoming appointments - Access your health summary, medical history, and visit history - View current conditions and allergies - View procedure and lab results - View your medications, including guidelines, side effects, and precautions - Complete pre-appointment questionnaires requested by your provider - Ready summary reports of your office visits and procedures To access the Patient Portal Mobile [employer], follow these directions: - Search [employer] in the [employer] Store or [employer] Store - Download the [employer] - Search for [facility] - Enter your login/password Prescriptions: No Action propranolol 20 mg tablet 20 mg PO BID Qty: 180 3RF sertraline 50 mg tablet 50 mg PO DAILY Qty: 90 3RF omeprazole 40 mg capsule,delayed release(DR/EC) 40 mg PO DAILY@0630 Qty: 90 3RF atorvastatin 40 mg tablet 40 mg PO DAILY Qty: 90 1RF furosemide 20 mg tablet 20 mg PO DAILY Qty: 90 0RF multivitamin Tablet 1 tab PO DAILY cholecalciferol (vitamin D3) [Vitamin D3] 25 mcg (1,000 unit) Tablet 25 mcg PO DAILY aspirin 81 mg Tablet,Chewable 81 mg PO DAILY Qty: 30 0RF alendronate 70 mg tablet 70 mg PO QWEEK Qty: 14 3RF fluticasone furoate-vilanterol [Breo Ellipta] 200-25 mcg/dose blister with device 1 inh inhalation DAILY lisinopril 20 mg tablet See Rx Instructions PO DAILY Qty: 90 0RF Rx Instructions: 1/2 orally daily; spironolactone 50 mg tablet 25 mg PO DAILY Qty: 90 1RF [facility] Print Language: Beninese
[2024-12-05 20:50] LABS: UACC Culture Trigger YES
[2024-12-05 21:11] LABS: Resp Syncy Virus RNA Qual PCR NEGATIVE (Negative); SARS COV2 PCR INHOUSE POSITIVE (Negative)
--- NOTE | 2024-12-05 22:38 | MHC.EDTECH ---
patient put on a hospital bed
[2024-12-06] VITALS (7 sets, daily range): BP systolic 141–155; BP diastolic 55–62; PULSE 72–77; RESP 16–22; TEMP 36.8–38.1; O2SAT 95–98
--- NOTE | 2024-12-06 10:18 | MHC.CM.ED ---
Received case management consult overnight. Patient came to the ER due to weakness and a fall. Found to be positive for Covid. Physical therapy eval completed. Home with services is recommended. Spoke with patient's daughter/HCP, Cindy. Cindy agreeable to [facility] referral for senior living and physical therapy. Cindy will be on-site around 430pm to transport patient home. Patient, Cindy, Kortney ARMAS and Radha RUBALCAVA aware. Continue to monitor for d/c needs.
== END 2024-12-06 13:20 | disposition home or self-care (01) ==
PROVIDERS: Emergency Provider Student in an Organized Health Care Education/Training Program; PCP Internal Medicine
DX: U07.1 COVID-19 (principal); B34.9 Viral infection, unspecified; R53.1 Weakness; I11.0 Hypertensive heart disease with heart failure; I50.32 Chronic diastolic (congestive) heart failure; J44.9 Chronic obstructive pulmonary disease, unspecified; N18.9 Chronic kidney disease, unspecified; Z79.899 Other long term (current) drug therapy
CPT/HCPCS: 36415; 70450; 71045; 73502; 80053; 81001; 84484; 85025; 87086; 87637; 93005; 96360; 97161; 99284; 99285

== ENCOUNTER → 2024-12-05 17:59 | Outpatient (BNV) | payer MEDICARE, SELFPAY | PROVIDERS: Visit Provider Radiology Diagnostic Radiology | DX: M25.551 Pain in right hip (principal); R53.1 Weakness | CPT/HCPCS: 70450; 71045; 73502 ==

== ENCOUNTER → 2024-12-05 17:59 | Outpatient (BNV) | payer MEDICARE, SELFPAY | PROVIDERS: Emergency Provider Student in an Organized Health Care Education/Training Program; Visit Provider Internal Medicine Cardiovascular Disease | DX: R53.1 Weakness (principal) | CPT/HCPCS: 93010 ==

== ENCOUNTER → 2024-12-07 23:59 | Outpatient (BNV) | payer MEDICARE, SELFPAY | PROVIDERS: PCP Internal Medicine; Visit Provider Internal Medicine | DX: D62 Acute posthemorrhagic anemia (principal); K29.01 Acute gastritis with bleeding | CPT/HCPCS: G0180 ==

== ENCOUNTER 2024-12-13 10:26 | Outpatient (AMB) | payer MEDICARE, SELFPAY ==
[2024-12-13 10:36] VITALS: BP 142/70; PULSE 58; O2SAT 99; BMI 28.5
--- NOTE | 2024-12-13 10:36 | A.OFFVIS_ITS ---
Vital Signs 12/13/24 10:36 Height 5 ft 3 in Weight 160 lb 14.999 oz BMI 28.5 BP 142/70 H Blood Pressure Location Lt brachial Position Sitting Pulse 58 Pulse Source Pulse Oximeter Pulse Oximetry (%) 99 Oxygen Delivery Method Room Air Intake Visit Reasons: Bronchitis Intake Note: pt is here for follow of ER for Covid, she states she is still coughing with phlegm but getting better, please refill Breo Broadcast Journalist Required: No Chief Dispatcher: Chief Dispatcher offered & declined Allergies cefotetan Allergy (Unknown, Verified 12/13/24 10:56) unknown cefuroxime (From Ceftin) Allergy (Unknown, Verified 12/13/24 10:56) Unknown ciprofloxacin (Cipro) Allergy (Unknown, Verified 12/13/24 10:56) unknown latex Allergy (Unknown, Verified 12/13/24 10:56) Unknown moxifloxacin (From Avelox) Allergy (Unknown, Verified 12/13/24 10:56) Unknown prochlorperazine (From Compazine) Allergy (Unknown, Verified 12/13/24 10:56) Unknown alendronate sodium Adverse Reaction (Intermediate, Verified 12/13/24 10:56) Stomach Upset amlodipine Adverse Reaction (Uncoded 12/13/24 10:56) Abdominal Pain Medication List - Last Reconciled 12/13/24 by Dinorah Stewart MD atorvastatin 40 mg PO DAILY cholecalciferol (vitamin D3) (Vitamin D3) 25 mcg PO DAILY fluticasone furoate-vilanterol 200-25 mcg/dose (Breo Ellipta) 1 inh inhalation DAILY furosemide 20 mg PO DAILY lisinopril 1/2 orally daily; multivitamin 1 tab PO DAILY omeprazole 40 mg PO DAILY@0630 propranolol 20 mg PO BID sertraline 50 mg PO DAILY spironolactone 25 mg (1/2 x 50 mg) PO DAILY Do you need a note to return to daycare/school/sports/work: No HPI HPI Bronchitis: Details: BONNIE 74 YEARS OLD FEMALE IS HERE FOR FOLLOW-UP AFTER 4 MONTHS. HER OLDER SISTER WHO WAS 78 YEARS OLD JUST RECENTLY. HAD PULMONARY FIBROSIS. SEAN IS IS STILL SOMEWHAT SAD. BREATHING RANGEL SHE IS DOING OKAY. SHE WAS SEEN IN THE EMERGENCY ROOM 1 WEEK AGO FOR ACUTE RESPIRATORY SYMPTOMS, AND HER BLOOD TEST WAS POSITIVE FOR COVID. BREATHING. REMAINED OKAY .SHE IS SLOWLY RECOVERING FROM THAT CONTINUES TO USE BREO 200-251 INHALATION DAILY AND NEEDS TO USE ALBUTEROL ONLY ONCE IN A WHILE. [facility] Medical History Hearing loss (HFpEF) heart failure with preserved ejection fraction Cirrhosis Bladder carcinoma Osteoporosis Annual physical exam Restrictive lung disease Pulmonary nodule Allergic rhinitis Atypical ductal hyperplasia of breast COPD (chronic obstructive pulmonary disease) Thrombocytopenia Aortic valve sclerosis Breast CA Depression Essential hypertension Portal hypertension Surgical History H/O colonoscopy History of esophagogastroduodenoscopy (EGD) History of surgery History of inguinal hernia repair Hx of cholecystectomy Family History Father No problems noted. Mother Colon cancer Sister Breast cancer Social History Household Members: None Household Members Other:: lives alone Housing: House Do you presently have visiting nurse or other home services: No Alcohol intake: current Alcohol intake frequency: holidays/special occasions only Patient Tobacco Use Status: Never used Tobacco e-Cigarette/Vaping Use: Never Used Second Hand Smoke Exposure: No service: No Current occupational status: retired Cognitive needs: No Hearing needs: No Vision needs: Yes Review of Systems Const All systems reviewed & are unremarkable except as noted in HPI and below Eyes Reports no additional complaints ENT Reports nasal congestion (Mild intermittent) Card Denies chest pain, Denies irregular heart rhythm and Denies leg edema Resp Reports as per HPI GI Reports heartburn (Controlled with omeprazole) Reports no additional complaints Musc Reports no additional complaints Skin/Breast Reports system reviewed and no additional complaints, except as documented Neuro Reports no additional complaints Psych Reports depression (Mild well controlled) Endo Reports no additional complaints Physical Exam Vital Signs: Last Vital Signs Pulse 58 12/13/24 10:36 BP 142/70 H 12/13/24 10:36 Pulse Ox 99 12/13/24 10:36 Oxygen Delivery Method Room Air 12/13/24 10:36 BMI result Body Mass Index 28.5 Const General: comfortable, no acute distress, alert and awake Orientation/consciousness: patient oriented x3 HEENT Head: Yes normal to inspection General nose exam: No nasal polyps present, No nasal discharge present and Other nasal findings present (HAS MILD NASAL CONGESTION, ALSO HAS A FEW SUPERFICIAL ULCERATED AREAS ) Face and sinus: Yes sinuses nontender Mouth: oropharynx normal Throat: Yes posterior oropharynx normal Eyes General: appearance normal, both eyes and all related structures Neck Neck: Yes normal visual inspection, Yes no lymphadenopathy, Yes trachea midline and Yes no JVD Thyroid: Thyroid normal Chest Chest palpation & inspection: normal inspection of the chest, normal palpation of entire chest wall and no tenderness Resp Other: Percussion note is resonant, she has good breath sounds on both sides, slightly prolonged expiratory phase. No audible wheezes rhonchi . A FEW FINE CREPS OVER THE LEFT BASE. Cardio Palpation: normal PMI Rate: regular rate Rhythm: regular rhythm Heart sounds: no gallops and no murmurs Peripheral pulses: Peripheral pulses 2+ throughout GI Palpation (GI): Soft to palpation, nontender, No hepatosplenomegaly present and no masses Auscultation: normal bowel sounds Back/Spine/Pelvis Thoracic/Lumbar Spine: thoracic and lumbar spine normal to inspection Skin General skin exam: no rashes or lesions noted Neuro General: patient oriented x3 and no focal motor deficits Cranial nerves: Yes CN's II-XII intact bilaterally Extrem General: Yes normal to inspection, Yes no clubbing, cyanosis or edema and Yes no calf tenderness Psych Appearance: grossly normal and well kempt Speech and movement: Normal speech and movement present Results Reviewed Results Reviewed: CHEST XRAY ON 12/05 Mild bilateral atelectasis. No significant pleural effusion or pneumothorax. Similar prominent/enlarged cardiac silhouette. No acute fracture. Similar scattered clips in the right axilla. IMPRESSION: Mild bilateral atelectasis. Assessment & Plan Assessment & Plan (1) COPD (chronic obstructive pulmonary disease): Comment: moderately severe chronic obstructive pulmonary disease .well controlled at this time Code(s): J44.9 - Chronic obstructive pulmonary disease, unspecified Category: Medical Plan: Continue using Breo 200-25 1 inhalation daily. Add albuterol HFA 1 or 2 puffs Q 4-6 hours p.r.n. only (2) Restrictive lung disease: Comment: Previous PFT has shown mild restrictive pulmonary disorder . Chest x-ray does not show any significant abnormality except for mild basilar atelectasis. Code(s): J98.4 - Other disorders of lung Category: Medical Plan: Patient advised to do deep breathing exercises at least 3 times a day regularly Coding Level of Care Code Est Pt Level 3 (61308) Diagnoses COPD (chronic obstructive pulmonary disease) J44.9 Restrictive lung disease J98.4
--- OUTSIDE RECORDS SUMMARY | 2024-12-13 11:57 | XMS_ITS | Encounter Summary ---
Author Organization [facility] Address [address] [place] [address] [place] [address] Phone Care Team Providers Care Loading Machine Adjuster Name Role Phone Self-Referred, Patient Unavailable Unavailab Benito Morrow MD, MPH Unavailable [phone] Jeanne Killian MD Primary Care Provider [phone] Puma Kang MD, MPH Unavailable [phone] Eric Stevenson MD Unavailable [phone] Geri Parks MD Unavailable [phone] Encounter Details Date Type Department Care Team (Late st Contact Info) Description 04/27/2017 Procedure Pass [facility] Radiology [address] [place] [address] Social History Tobacco Use Types Packs/Day Years [...] Description 04/04/2025 1:00 PM EST Office Visit [address] [address] Benito Mcconnell MD, MPH [address] [place] [address] [email or web address] documented as of this encounter Visit Diagnoses Not on filedocumented in this encounter Care Teams Loading Machine Adjuster Relationship Specialty Start Date End Date Jeanne Killian MD [address] [facility] [place] [address] PCP - General Internal Medicine 01/20/16 Self-Referred, Patient 12/29/15 Benito Mcconnell MD, MPH 45 [facility] [address] [place] [address] [email or web address] Primary Oncologist Urology 12/29/15 Puma Kang MD, MPH 75 [facility], [facility] [place] [address] [email or web address] Radiation Oncology 02/06/16 Eric Stevenson MD [address] [place] [address], [address] [place] [address] [email or web address] Urology 02/06/16 Geri Parks MD [address] [place] [address] [email or web address] Primary Oncologist Oncology 02/06/16 documented as of this encounter Additional Source Comments The information contained in this document represents components of the legal health record. It is not the complete legal health record.[facility]
--- OUTSIDE RECORDS SUMMARY | 2024-12-13 11:57 | XMS_ITS | Encounter Summary ---
Author Organization [facility] Address [address] [place] [address] Phone Care Team Providers Care Telegraph Office Manager Name Role Phone Self-Referred, Patient Unavailable Unavailab Benito Morrow MD, MPH Unavailable [phone] Jeanne Killian MD Primary Care Provider [phone] Puma Kang MD, MPH Unavailable [phone] Eric Stevenson MD Unavailable [phone] Geri Parks MD Unavailable [phone] Encounter Details Date Type Department Care Team (Late st Contact Info) Description 01/03/2020 Procedure Pass [facility] [address] [place] [address] Social History Tobacco Use Types Packs/Day Years [...] 04/04/2025 1:00 PM EST [facility] [address] [place] [address] Benito Mcconnell MD, MPH [address] [place] [address] [place] [address] [email or web address] documented as of this encounter Visit Diagnoses Not on filedocumented in this encounter Care Teams Telegraph Office Manager Relationship Specialty Start Date End Date Jeanne Killian MD [address] [facility] [place] [address] PCP - General Internal Medicine 01/20/16 Self-Referred, Patient 12/29/15 Benito Mcconnell MD, MPH [address] [place] [address] [address] [place] [address] [email or web address] Primary Oncologist Urology 12/29/15 Puma Kang MD, MPH [address] [place] [address], [facility]- [address] [place] [address] [email or web address] Radiation Oncology 02/06/16 Eric Stevenson MD [address] [place] [address], [address] [place] [address] [email or web address] Urology 02/06/16 Geri Parks MD [address] [place] [address] [email or web address] Primary Oncologist Oncology 02/06/16 documented as of this encounter Additional Source Comments The information contained in this document represents components of the legal health record. It is not the complete legal health record.[facility]
--- OUTSIDE RECORDS SUMMARY | 2024-12-13 11:57 | XMS_ITS | Encounter Summary ---
Author Organization [facility] Address [address] [place] [address] Phone Care Team Providers Care Four Horse Hitch Driver Name Role Phone Self-Referred, Patient Unavailable Unavailab Benito Morrow MD, MPH Unavailable [phone] Jeanne Killian MD Primary Care Provider [phone] Puma Kang MD, MPH Unavailable [phone] Eric Stevenson MD Unavailable [phone] eGri Parks MD Unavailable [phone] Encounter Details Date Type Department Care Team (Late st Contact Info) Description 01/03/2020 Procedure Pass [facility] [address] [place] [address] Social History Tobacco Use Types Packs/Day Years [...] PM EST [facility] [address] [place] [address] Benito Mcconnell MD, MPH [address] [place] [address] [place] [address] [email or web address] documented as of this encounter Visit Diagnoses Not on filedocumented in this encounter Care Teams Four Horse Hitch Driver Relationship Specialty Start Date End Date Jeanne Killian MD [address] [facility] [place] [address] PCP - General Internal Medicine 01/20/16 Self-Referred, Patient 12/29/15 Benito Mcconnell MD, MPH [address] [place] [address] [address] [place] [address] [email or web address] Primary Oncologist Urology 12/29/15 Puma Kang MD, MPH [address] [place] [address], [facility]- [address] [place] [address] [email or web address] Radiation Oncology 02/06/16 Eric Stevenson MD [address] [place] [address], [address] [place] [address] [email or web address] Urology 02/06/16 Geri Parks MD [address] [place] [address] [email or web address] Primary Oncologist Oncology 02/06/16 documented as of this encounter Additional Source Comments The information contained in this document represents components of the legal health record. It is not the complete legal health record.[facility]
--- OUTSIDE RECORDS SUMMARY | 2024-12-13 11:57 | XMS_ITS | Encounter Summary ---
Author Organization [facility] Address [address] [place] [address] [place] [address] Phone Care Team Providers Care Enrollment Processor Name Role Phone Self-Referred, Patient Unavailable Unavailab Benito Morrow MD, MPH Unavailable [phone] Jeanne Killian MD Primary Care Provider [phone] Puma Kang MD, MPH Unavailable [phone] Eric Stevenson MD Unavailable [phone] Geri Parks MD Unavailable [phone] Encounter Details Date Type Department Care Team (Late st Contact Info) Description 04/07/2023 Procedure Pass [address] [address] Social History Tobacco Use Types Packs/Day Years [...] Description 04/04/2025 1:00 PM EST Office Visit [facility] [address] [place] [address] Benito Mcconnell MD, MPH [address] [place] [address] [address] [place] [address] BRISA@[email or web address] documented as of this encounter Visit Diagnoses Not on filedocumented in this encounter Care Teams Enrollment Processor Relationship Specialty Start Date End Date Jeanne Killian MD [address] [facility] [place] [address] PCP - General Internal Medicine 01/20/16 Self-Referred, Patient 12/29/15 Benito Mcconnell MD, MPH [address] [place] [address] [address] [place] [address] [email or web address] Primary Oncologist Urology 12/29/15 Puma Kang MD, MPH [address] [place] [address], [facility]1- [address] [place] [address] ROSANNA@[email or web address] Radiation Oncology 02/06/16 rEic Stevenson MD [address] [place] [address], [address] [place] [address] [email or web address] Urology 02/06/16 Geri Parks MD [address] [place] [address] [email or web address] Primary Oncologist Oncology 02/06/16 documented as of this encounter Additional Source Comments The information contained in this document represents components of the legal health record. It is not the complete legal health record.[facility]
--- OUTSIDE RECORDS SUMMARY | 2024-12-13 11:57 | XMS_ITS | Encounter Summary ---
Author Organization [facility] Address [address] [place] [address] [place] [address] Phone Care Team Providers Care Still Operator Brandy Name Role Phone Self-Referred, Patient Unavailable Unavailab Benito Morrow MD, MPH Unavailable [phone] Jeanne Killian MD Primary Care Provider [phone] Puma Kang MD, MPH Unavailable [phone] Eric Stevenson MD Unavailable [phone] Geri Parks MD Unavailable [phone] Encounter Details Date Type Department Care Team (Late st Contact Info) Description 04/07/2023 Procedure Pass [address] [address] Social History Tobacco Use Types Packs/Day Years [...] Description 04/04/2025 1:00 PM EST Office Visit [facility] [address] [place] [address] Benito Mcconnell MD, MPH [address] [place] [address] [address] [place] [address] [email or web address] documented as of this encounter Visit Diagnoses Not on filedocumented in this encounter Care Teams Still Operator Brandy Relationship Specialty Start Date End Date Jeanne Killian MD [address] [facility] [address] PCP - General Internal Medicine 01/20/16 Self-Referred, Patient 12/29/15 Benito Mcconnell MD, MPH [address] [place] [address] [address] [place] [address] [email or web address] Primary Oncologist Urology 12/29/15 Puma Kang MD, MPH [address] [place] [address], [facility]1- L[address] [place] [address] [email or web address] Radiation Oncology 02/06/16 Eric Stevenson MD [address] [place] [address], [address] [place] [address] [email or web address] Urology 02/06/16 Geri Parks MD [address] [place] [address] [email or web address] Primary Oncologist Oncology 02/06/16 documented as of this encounter Additional Source Comments The information contained in this document represents components of the legal health record. It is not the complete legal health record.[facility]
--- OUTSIDE RECORDS SUMMARY | 2024-12-13 11:58 | XMS_ITS | Encounter Summary ---
Author Organization [facility] Address [address] [place] [address] Care Team Providers Care Milk Runner Name Role Phone Enedelia Rdz MD Primary Care Provider + Encounter Details Date Type Department Care Team (Late st Contact Info) Description 06/30/2024 Lab Requisition [facility] Main Lab [address] [facility] [place] [address] Enedelia Rdz MD [address] [id number] Chronic kidney disease, unspecified; Gastro-esophageal reflux disease [...] mmol/L LAB CHEMISTRY METHOD 07/02/2024 3:00 PM [facility] Potassium 4.5 3.5 - 5.5 mmol/L LAB CHEMISTRY METHOD 07/02/2024 3:00 PM [facility] Chloride 109 96 - 110 mmol/L LAB CHEMISTRY METHOD 07/02/2024 3:00 PM [facility] CO2 22 21 - 32 mmol/L LAB CHEMISTRY METHOD 07/02/2024 3:00 PM [facility] Anion Gap 9 3 - 11 LAB CHEMISTRY METHOD 07/02/2024 3:00 PM [facility] Glucose 78 70 - 100 mg/dL LAB CHEMISTRY METHOD 07/02/2024 3:00 PM [facility] BUN 22 5 - 25 mg/dL LAB CHEMISTRY METHOD 07/02/2024 3:00 PM [facility] Creatinine 0.96 0.50 - 1.10 mg/dL LAB CHEMISTRY METHOD 07/02/2024 3:00 PM [facility] eGFR 62 >=60 mL/min/1. 73m2 LAB CHEMISTRY METHOD 07/02/2024 3:00 PM [facility] Comment:Calculation based on the Chronic Kidney Disease Epidemiology Collaboration (CKD-EPI) equation refit without adjustment for race. BUN/Creatinine Ratio 22.9 LAB CHEMISTRY METHOD 07/02/2024 3:00 PM [facility] Calcium 8.8 8.5 - 10.5 mg/dL LAB CHEMISTRY METHOD 07/02/2024 3:00 PM [facility] Blood Venous blood specimen / Unknown Venipuncture / Unknown 07/02/2024 8:30 AM EDT 07/02/2024 11:09 AM EDT Enedelai Rdz MD LAB BLOOD ORDERABLES Fin al Result [facility] [address] [place] [address], * (ABNORMAL) Complete blood count (07/02/2024 8:30 AM EDT) [facility] Signature WBC 5.5 4.8 - 10.8 K/mcL [...] [place] LAB HEMETOLOGY METHOD 07/02/2024 11:38 AM [facility] MCH 31.9 27.0 - 32.0 pcg LAB HEMETOLOGY METHOD 07/02/2024 11:38 AM [facility] MCHC 33.0 32.0 - 37.0 g/dL LAB HEMETOLOGY METHOD 07/02/2024 11:38 AM T [facility] RDW 15.5(H) 11.0 - 15.0 % LAB HEMETOLOGY METHOD [facility]02[facility]24 11:[facility] Platelets 150 130 - 400 K/mcL LAB HEMETOLOGY METHOD 07/02/2024 11:38 AM [facility] MPV 10.8 7.0 - 11.0 [...] Fin al Result [facility] [address] [place] [address], documented in this encounter Visit Diagnoses Diagnosis Chronic kidney disease, unspecified Gastro-esophageal reflux disease without esophagitis Essential (primary) hypertension Unspecified essential hypertension Thrombocytopenia, unspecified (CMS/HCC V24) Thrombocytopenia, unspecified documented in this encounter Care Teams Milk Runner Relationship Specialty Start Date End Date Enedelia Rdz MD [address] [place] [address] PCP - General Family Medicine 06/22/24 documented as of this encounter
--- OUTSIDE RECORDS SUMMARY | 2024-12-13 11:58 | XMS_ITS | Encounter Summary ---
Author Organization [facility] Address [address] [place] [address] [place] [address] Phone Care Team Providers Care Associate Counsel Name Role Phone Self-Referred, Patient Unavailable Unavailab Benito Morrow MD, MPH Unavailable [phone] Jeanne Killian MD Primary Care Provider [phone] Puma Kang MD, MPH Unavailable [phone] Eric Stevenson MD Unavailable [phone] Geri Parks MD Unavailable [phone] Encounter Details Date Type Department Care Team (Late st Contact Info) Description 06/16/2017 Procedure Pass [facility] [address] [place] [address] Social History Tobacco Use Types Packs/Day Years [...] Description 04/04/2025 1:00 PM EST Office Visit [facility] 20 [place] [address] Benito Mcconnell MD, MPH [address] [place] [address] [email or web address] documented as of this encounter Visit Diagnoses Not on filedocumented in this encounter Care Teams Associate Counsel Relationship Specialty Start Date End Date Jeanne Killian MD [address] [facility] [place] [address] PCP - General Internal Medicine 01/20/16 Self-Referred, Patient 12/29/15 Benito Mcconnell MD, MPH [address] [place] [address] 11[address] [place], [place] [email or web address] Primary Oncologist Urology 12/29/15 Puma Kang MD, MPH [address] [facility]- [address] [place] [address] [email or web address] Radiation Oncology 02/06/16 Eric Stevenson MD [address] [place] [address], [address] [place] [address] [email or web address] Urology 02/06/16 Geri Parks MD [address] [place] [address] [email or web address] Primary Oncologist Oncology 02/06/16 documented as of this encounter Additional Source Comments The information contained in this document represents components of the legal health record. It is not the complete legal health record.[facility]
--- OUTSIDE RECORDS SUMMARY | 2024-12-13 11:58 | XMS_ITS | Encounter Summary ---
Author Organization [facility] Address [address] [place] [address] [place] [address] Phone Care Team Providers Care Economic Consultant Name Role Phone Self-Referred, Patient Unavailable Unavailab Benito Morrow MD, MPH Unavailable [phone] Jeanne Killian MD Primary Care Provider [phone] Puma Kang MD, MPH Unavailable [phone] Eric Stevenson MD Unavailable [phone] Geri Parks MD Unavailable [phone] Encounter Details Date Type Department Care Team (Late st Contact Info) Description 04/22/2017 Procedure Pass [facility] [address] [place] [address] Social History Tobacco Use Types Packs/Day Years [...] Description 04/04/2025 1:00 PM EST Office Visit [facility] 20 [place] [address] Benito Mcconnell MD, MPH [address] [place] [address] [email or web address] documented as of this encounter Visit Diagnoses Not on filedocumented in this encounter Care Teams Economic Consultant Relationship Specialty Start Date End Date Jeanne Killian MD [address] [facility] [place] [address] PCP - General Internal Medicine 01/20/16 Self-Referred, Patient 12/29/15 Benito Mcconnell MD, MPH [address] [place] [address] 11[address] [place], [place] BRISA@[email or web address] Primary Oncologist Urology 12/29/15 Puma Kang MD, MPH [address] [facility], ASB1- L2 [place] [address] ROSANNA@[facility] Radiation Oncology 02/06/16 Eric Stevenson MD [address] [place] [address], [address] [place] [address] [email or web address] Urology 02/06/16 Geri Parks MD [address] [place] [address] [email or web address] Primary Oncologist Oncology 02/06/16 documented as of this encounter Additional Source Comments The information contained in this document represents components of the legal health record. It is not the complete legal health record.[facility]
--- OUTSIDE RECORDS SUMMARY | 2024-12-13 11:58 | XMS_ITS | Patient Health Record ---
[facility] Address [address] [place] [address] Care Team Providers Care Care Information Associate Name Role Phone Jeanne Killian MD Primary Care Provider Unavaila ble Black, Tessa Unavailable [phone] Allergies Allergen (clinical drug ingredient) Drug/Non Drug [...] Problem Acquired hammer toe of right foot (6710275593413319 ) Other hammer toe(s) (acquired), right foot (M20.41) Active confirmed Problem Acquired hammer toe of left foot (8859612887487574 ) Other hammer toe(s) (acquired), left foot (M20.42) Active confirmed Problem Acquired hallux valgus (48376196) Hallux valgus (acquired), left foot (M20.12) Active confirmed Problem Acquired hallux valgus (40056833) Hallux valgus (acquired), right foot (M20.11) Active confirmed Problem Localized, primary osteoarthritis of the ankle and/or foot (023931676) Osteoarthritis of right ankle and foot (M19.071) Active confirmed Problem Localized, primary osteoarthritis of the ankle and/or foot (981283423) Osteoarthritis of left ankle and foot (M19.072) Active confirmed Plan Of Treatment No Information Insurance Providers Payer Name Payer Address Payer Phone Subscriber Number Group Number Insured Name Patient Relationship to Insured Coverage Start Date Coverage End Date Medicare National Govt Svcs Inc [address] [place] [address] [id number] Nayeli Fofana Self - patient is the insured [employer] [address] [place] [address] [phone] [id number] Nayeli Fofana Self - patient is the insured Medical (General) History Medical History History ICD Code Arthritis asthma Gall bladder problems High blood pressure Kidney disease Liver disease Osteoporosis Measles Mumps Chicken pox Transfusions Congenitive Hepatic Fibrosis Surgical History Surgery Date(Month/Year) Breast Surgery x2 1978,2020 kidney surgery 2016 gall bladder 2013 hernia
--- OUTSIDE RECORDS SUMMARY | 2024-12-13 11:58 | XMS_ITS | Encounter Summary ---
Author Organization [facility] Address [address] [place] [address] Care Team Providers Care Civil Engineering Professional Name Role Phone Enedelia Rdz MD Primary Care Provider + Encounter Details Date Type Department Care Team (Late st Contact Info) Description 07/06/2024 Lab Requisition [facility] - Main Lab [address] [facility] [place] [address] Enedelia Rdz MD [address] [place] [address] [id number] Chronic kidney disease, unspecified; Gastro-esophageal reflux disease [...] unspecified documented in this encounter Care Teams Civil Engineering Professional Relationship Specialty Start Date End Date Enedelia Rdz MD [address] [place] [address] PCP - General Family Medicine 06/22/24 documented as of this encounter
--- OUTSIDE RECORDS SUMMARY | 2024-12-13 11:58 | XMS_ITS | Encounter Summary ---
Author Organization [facility] Address [address] [place] [address] Phone Care Team Providers Care Web Content Producer Name Role Phone Self-Referred, Patient Unavailable Unavailab Benito Morrow MD, MPH Unavailable [phone] Jeanne Killian MD Primary Care Provider [phone] Jeanne Killian MD Primary Care Provider [phone] Puma Kang MD, MPH Unavailable [phone] Eric Stevenson MD Unavailable [phone] Geri Parks MD Unavailable [phone] Encounter Details Date Type Department Care Team (Late st Contact Info) Description 01/19/2016 Procedure Pass [facility] 75 [place] [address] Social History Tobacco Use Types Packs/Day Years [...] Description 04/04/2025 1:00 PM EST [facility] [address] Benito Mcconnell MD, MPH [address] [place] [address] [email or web address] documented as of this encounter Visit Diagnoses Not on filedocumented in this encounter Care Teams Web Content Producer Relationship Specialty Start Date End Date Jeanne Killian MD [address] [facility] [address] [place] [address] PCP - General Internal Medicine 01/20/16 Jeanne Killian MD [address] [facility] [address] [place] [address] PCP - General Internal Medicine 01/19/16 01/19/16 Self-Referred, Patient 12/29/15 Benito Mcconnell MD, MPH [address] [place] [address] [address] [place] [address] [email or web address] Primary Oncologist Urology 12/29/15 Puma Kang MD, MPH [address] [place] [address], ASB1- L2 [place] [address] ROSANNA@[email or web address] Radiation Oncology 02/06/16 Eric Stevenson MD [address] [place] [address], [address] [address] [email or web address] Urology 02/06/16 Geri Parks MD [address] [place] [address] Renea@[email or web address] Primary Oncologist Oncology 02/06/16 documented as of this encounter Additional Source Comments The information contained in this document represents components of the legal health record. It is not the complete legal health record.[facility]
--- OUTSIDE RECORDS SUMMARY | 2024-12-13 11:58 | XMS_ITS | Encounter Summary ---
Author Organization [facility] Address [address] [place] [address] [place] [address] Phone Care Team Providers Care Life Science Technician Name Role Phone Self-Referred, Patient Unavailable Unavailab Benito Morrow MD, MPH Unavailable [phone] Jeanne Killian MD Primary Care Provider [phone] Puma Kang MD, MPH Unavailable [phone] Eric Stevenson MD Unavailable [phone] Geri Parks MD Unavailable [phone] Encounter Details Date Type Department Care Team (Late st Contact Info) Description 06/16/2017 Procedure Pass [facility] 75 [place] [address] Social History Tobacco Use Types Packs/Day Years [...] Description 04/04/2025 1:00 PM EST Office Visit [address] [address] Benito Mcconnell MD, MPH [address] [place] [address] BRISA@[email or web address] documented as of this encounter Visit Diagnoses Not on filedocumented in this encounter Care Teams Life Science Technician Relationship Specialty Start Date End Date Jeanne Killian MD [address] [facility] [place] [address] PCP - General Internal Medicine 01/20/16 Self-Referred, Patient 12/29/15 Benito Mcconnell MD, MPH [address] [facility] [address] [place] [address] [email or web address] Primary Oncologist Urology 12/29/15 Puma Kang MD, MPH 75 [facility], [facility]1- L2 [place] [address] ROSANNA@[email or web address] Radiation Oncology 02/06/16 Eric Stevenson MD [address] [place] [address], [address] [place] [address] [email or web address] Urology 02/06/16 Geri Parks MD [address] [place] [address] [email or web address] Primary Oncologist Oncology 02/06/16 documented as of this encounter Additional Source Comments The information contained in this document represents components of the legal health record. It is not the complete legal health record.[facility]
--- OUTSIDE RECORDS SUMMARY | 2024-12-13 11:58 | XMS_ITS | Encounter Summary ---
Author Organization [facility] Address [address] [place] [address] Phone Care Team Providers Care Mold Filler Plastic Dolls Name Role Phone Self-Referred, Patient Unavailable Unavailab Benito Morrow MD, MPH Unavailable [phone] Jeanne Killian MD Primary Care Provider Puma Kang MD, MPH Unavailable [phone] Eric Stevenson MD Unavailable [phone] Geri Parks MD Unavailable [phone] Encounter Details Date Type Department Care Team (Late Contact Info) Description 03/05/2016 Procedure Pass [facility] Periop 75 [place] [address] Social History Tobacco Use Types Packs/Day Years [...] EST Office Visit [facility] 20 [place] [address] Benito Mcconnell MD, MPH [address] [place] [address] BRISA@[email or web address] documented as of this encounter Visit Diagnoses Not on filedocumented in this encounter Care Teams Mold Filler Plastic Dolls Relationship Specialty Start Date End Date Jeanne Killian MD [address] [facility] [place] [address] PCP - General Internal Medicine 01/20/16 Self-Referred, Patient 12/29/15 Benito Mcconnell MD, MPH [address] [facility] [address] [place] [address] [email or web address] Primary Oncologist Urology 12/29/15 Puma Kang MD, MPH 75 [facility], ASB1- L2 [place] [address] ROSANNA@[facility] Radiation Oncology 02/06/16 Eric Stevenson MD [facility], [address] [place] [address] [email or web address] Urology 02/06/16 Geri Parks MD [address] [place] [address] Renea@[email or web address] Primary Oncologist Oncology 02/06/16 documented as of this encounter Additional Source Comments The information contained in this document represents components of the legal health record. It is not the complete legal health record.[facility]
--- OUTSIDE RECORDS SUMMARY | 2024-12-13 11:58 | XMS_ITS | Clinical Summary ---
Author Organization [facility] Address [address] [place] [address] Phone Care Team Providers Care Work Order Clerk Name Role Phone Self-Referred, Patient Unavailable Unavailab Benito Morrow MD, MPH Unavailable [phone] Jeanne Killian MD Primary Care Provider [phone] Puma Kang MD, MPH Unavailable [phone] Eric Stevenson MD Unavailable [phone] Geri Parks MD Unavailable [phone] Allergies Active Allergy Reactions Criticality Noted Date [...] - 10/03/2024 11:59 PM EDT Hospital Encounter [facility] [address] [address] Benito Mcconnell MD, MPH Discharge Disposition: Home or Self Care 04/05/2024 Procedure [facility] [address] [place] [address] from Last 3 Months Family History Medical [...] Description 04/04/2025 1:00 PM EST Office Visit [facility] Multispecialty [address] [place] [address] Benito Mcconnell MD, MPH [address] [place] [address] [email or web address] Health Maintenance Due Date Last Done [...] 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 10/03/2024 1:02 PM EDT 10/03/2024 1:06 PM EDT Benito Mcconnell MD, MPH POINT OF CARE TEST ORDERA BLES Final Result [facility] CT & MRI [address] [place] [phone] * (ABNORMAL) Basic metabolic panel (01/18/2020 10:12 AM EST) Pathologist [facility] SODIUM 139 136 - 145 mmol/L [facility] POTASSIUM 4.4 3.4 - 5.1 mmol/L [facility] CHLORIDE 104 98 - 107 mmol/L [facility] CO2 28 22 - 31 mmol/L [facility] BUN 24(H) 6 - 23 mg/dL [facility] Comment:VERIFIED CREATININE 1.06 0.50 - 1.20 mg/dL [facility] GLUCOSE 101(H) 70 - 100 mg/dL [facility] CALCIUM 9.4 8.8 - 10.7 mg/dL [facility] EGFR 53(L) >59 mL/min/1.7 3m2 [facility] Comment:Estimated glomerular filtration rate calculated using the CKD-EPI equation. ANION GAP 7 7 - 17 mmol/L [facility] 01/18/2020 10:1 2 AM EST 01/18/2020 10:18 AM EST Lilia Sellers PA-C LAB BLOOD ORDERABL ES Final Result [facility] 20 [place] [address] from Last 3 Months or Most Recently Relevant to Health Maintenance Insurance MEDICARE PART A & B Member Subscriber Plan / Payer (Ef fective 2018-Present) Name:Nayeli Fofana Member ID:[id number] Relation to Subscriber:Self Name:Nayeli Fofana Subscriber ID:[id number] Payer ID:[id number] Group ID:Not on file Type:Medicare Address: [facility]. [address] [facility] [place] [address] [employer] MEDEX SUPPLEMENT MEDICARE PART A & B [employer]BI MEDEX SUPPLEMENT MEDICARE PART A & B [employer] MEDEX SUPPLEMENT MEDICARE PART A & B [employer]BI MEDEX SUPPLEMENT MEDICARE PART A & B [employer]BI [employer]EX SUPPLEMENT MEDICARE PART A & B [employer]BI MEDEX SUPPLEMENT MEDICARE PART A & B [employer] MEDEX SUPPLEMENT MEDICARE PART A & B [employer] MEDEX SUPPLEMENT MEDICARE PART A & B [employer]EX SUPPLEMENT Care Teams Work Order Clerk Relationship Specialty Start Date End Date Jeanne Killian MD [address] [facility] [place] [address] PCP - General Internal Medicine 01/20/16 Self-Referred, Patient 12/29/15 Benito Mcconnell MD, MPH [address] [place] [address] [address] [place] [address] [email or web address] Primary Oncologist Urology 12/29/15 Puma Kang MD, MPH [address] [place] [address], ASB1- L2 [place] [address] ROSANNA@[email or web address] Radiation Oncology 02/06/16 Eric Stevenson MD [facility], [address] [place] [address] [email or web address] Urology 02/06/16 Geri Parks MD [address] [place] [address] [email or web address]@[email or web address] Primary Oncologist Oncology 02/06/16 Additional Source Comments The information contained in this document represents components of the legal health record. It is not the complete legal health record.[facility]
--- OUTSIDE RECORDS SUMMARY | 2024-12-13 11:58 | XMS_ITS | Encounter Summary ---
Author Organization [facility] Address [address] [place] [address] Phone Care Team Providers Care Web Producer Name Role Phone Self-Referred, Patient Unavailable Unavailab Benito Morrow MD, MPH Unavailable [phone] Jeanne Killian MD Primary Care Provider [phone] Jeanne Killian MD Primary Care Provider [phone] Puma Kang MD, MPH Unavailable [phone] Eric Stevenson MD Unavailable [phone] Geri Parks MD Unavailable [phone] Encounter Details Date Type Department Care Team (Late st Contact Info) Description 01/19/2016 Procedure Pass [facility] 75 [place] [address] Social History Tobacco Use Types Packs/Day Years [...] Description 04/04/2025 1:00 PM EST [facility] [address] Benito Mcconnell MD, MPH [address] [place] [address] [email or web address]@[email or web address] documented as of this encounter Visit Diagnoses Not on filedocumented in this encounter Care Teams Web Producer Relationship Specialty Start Date End Date Jeanne Killian MD [address] [facility] [address] [place] [address] PCP - General Internal Medicine 01/20/16 Jeanne Killian MD [address] [facility] [address] [place] [address] PCP - General Internal Medicine 01/19/16 01/19/16 Self-Referred, Patient 12/29/15 Benito Mcconnell MD, MPH [address] [place] [address] [address] [place] [address] [email or web address] Primary Oncologist Urology 12/29/15 Puma Kang MD, MPH [address] [place] [address], ASB1- L2 [place] [address] ROSANNA@[facility] Radiation Oncology 02/06/16 Eric Stevenson MD [address] [place] [address], [address] [place] [address] [email or web address] Urology 02/06/16 Geri Parks MD [address] [place] [address] Renea@[email or web address] Primary Oncologist Oncology 02/06/16 documented as of this encounter Additional Source Comments The information contained in this document represents components of the legal health record. It is not the complete legal health record.[facility]
--- OUTSIDE RECORDS SUMMARY | 2024-12-13 11:58 | XMS_ITS | Encounter Summary ---
Author Organization [facility] Address [address] [place] [address] [place] [address] Phone Care Team Providers Care Mender Hand Name Role Phone Self-Referred, Patient Unavailable Unavailab Benito Morrow MD, MPH Unavailable [phone] Jeanne Killian MD Primary Care Provider [phone] Puma Kang MD, MPH Unavailable [phone] Eric Stevenson MD Unavailable [phone] Geri Parks MD Unavailable [phone] Encounter Details Date Type Department Care Team (Late st Contact Info) Description 04/05/2024 Procedure Pass [address] [address] Social History Tobacco Use Types Packs/Day Years [...] Description 04/04/2025 1:00 PM EST Office Visit [facility] Multispecialty [address] [place] [address] Benito Mcconnell MD, MPH [address] [place] [address] [address] [place] [address] [email or web address] documented as of this encounter Visit Diagnoses Not on filedocumented in this encounter Care Teams Mender Hand Relationship Specialty Start Date End Date Jeanne Killian MD [address] [place] [address] PCP - General Internal Medicine 01/20/16 Self-Referred, Patient 12/29/15 Benito Mcconnell MD, MPH [address] [place] [address] 11[address] [place] [address] BRISA@[email or web address] Primary Oncologist Urology 12/29/15 Puma Kang MD, MPH [address] [place] [address], [facility]1- L2 [place] [address] ROSANNA@[facility] Radiation Oncology 02/06/16 Eric Stevenson MD [address] [place] [address], [address] [place] [address] [email or web address] Urology 02/06/16 Geri Parks MD [address] [place] [address] [email or web address] Primary Oncologist Oncology 02/06/16 documented as of this encounter Additional Source Comments The information contained in this document represents components of the legal health record. It is not the complete legal health record.[facility]
--- OUTSIDE RECORDS SUMMARY | 2024-12-13 11:58 | XMS_ITS | Encounter Summary ---
Author Organization [facility] Address [address] [place] [address] Phone Care Team Providers Care Mail Sorter And Delivery Name Role Phone Self-Referred, Patient Unavailable Unavailab le Benito Mcconnell MD, MPH Unavailable [phone] Jeanne Killian MD Primary Care Provider [phone] Puma Kang MD, MPH Unavailable Eric Stevenson MD Unavailable [phone] Geri Parks MD Unavailable [phone] Reason for Referral * MRI/CAT Scan - Closed Specialty Diagnoses / Procedures Referred By Contmigel t Referred To Contact Procedures CT Chest Outside (No Interpretation) Benito Mcconnell MD, MPH Phone: tel: fax: mailto:[email or web address] Referral ID Status Reason Start Date Expiration Date Visits Re quested Visits Authorized [id number] Closed 04/27/2017 04/27/2018 1 1 Encounter Details Date Type Department Care Team (Late st Contact Info) Description 04/27/2017 Transcribe Orders [facility] [address] [place] [address] Mookie [email or web address] Social History Tobacco Use Types Packs/Day Years [...] Description 04/04/2025 1:00 PM EST [facility] [address] [place] [address] Benito Mcconnell MD, MPH [address] [place], [place] [address] [place] [address] BRISA@[email or web address] documented as of this encounter Results * CT Chest Outside (No Interpretation) (04/27/2017 12:00 AM EST) Narrative [facility] - 04/27/2017 12:25 PM EST This study is for PACS storage only and not for interpretation. us Benito Mcconnell MD, MPH IMG OUTSIDE IMAGING W/OUT INTERPRETATION Final Result [facility] documented in this encounter Visit Diagnoses Not on filedocumented in this encounter Care Teams Mail Sorter And Delivery Relationship Specialty Start Date End Date Jeanne Killian MD [address] [facility] [place] [address] PCP - General Internal Medicine 01/20/16 Self-Referred, Patient 12/29/15 Benito Mcconnell MD, MPH [address] [place] [address] 11[address] [place] [address] [email or web address] Primary Oncologist Urology 12/29/15 Puma Kang MD, MPH [address] [place] [address], ASB1- L2 [place] [address] [email or web address] Radiation Oncology 02/06/16 Eric Stevenson MD [address] [place] [address], [address] [place] [address] [email or web address] Urology 02/06/16 Geri Parks MD [address] [place] [address] [email or web address] Primary Oncologist Oncology 02/06/16 documented as of this encounter Additional Source Comments The information contained in this document represents components of the legal health record. It is not the complete legal health record.[facility]
--- OUTSIDE RECORDS SUMMARY | 2024-12-13 11:58 | XMS_ITS | Clinical Summary ---
Author Organization [address] Address [address] [place] [address] Phone Care Team Providers Care Cotton Bag Sewer Name Role Phone Elder, Enedelia Caldwell MD [...] without esophagitis Essential (primary) hypertension Thrombocytopenia, unspecified ([facility] V24) [facility] DEXA AXIAL SKELETON Routine 01/04/2018 2:07 PM EDT Age-related osteoporosis without current pathological fracture from Last 3 Months or Most Recently Relevant to Health Maintenance Results * Basic metabolic panel (07/02/2024 8:30 AM EDT) Sodium 140 133 - 145 mmol/L LAB CHEMISTRY METHOD 07/02/2024 3:00 PM EDT [facility] Potassium 4.5 3.5 - 5.5 mmol/L LAB CHEMISTRY METHOD 07/02/2024 3:00 PM EDT [facility] Chloride 109 96 - 110 mmol/L LAB CHEMISTRY METHOD 07/02/2024 3:00 PM EDT [facility] CO2 22 21 - 32 mmol/L LAB CHEMISTRY METHOD 07/02/2024 3:00 PM EDT [facility] Anion Gap 9 3 - 11 LAB CHEMISTRY METHOD 07/02/2024 3:00 PM EDT [facility] Glucose 78 70 - 100 mg/dL LAB CHEMISTRY METHOD 07/02/2024 3:00 PM EDT [facility] BUN 22 5 - 25 mg/dL LAB CHEMISTRY METHOD 07/02/2024 3:00 PM [facility] Creatinine 0.96 0.50 - 1.10 mg/dL LAB CHEMISTRY METHOD 07/02/2024 3:00 PM [facility] eGFR 62 >=60 mL/min/1. 73m2 LAB CHEMISTRY METHOD 07/02/2024 3:00 PM EDT [facility] Comment:Calculation based on the Chronic Kidney Disease Epidemiology Collaboration (CKD-EPI) equation refit without adjustment for race. BUN/Creatinine Ratio 22.9 LAB CHEMISTRY METHOD 07/02/2024 3:00 PM EDT [facility] Calcium 8.8 8.5 - 10.5 mg/dL LAB CHEMISTRY METHOD 07/02/2024 3:00 PM T [facility] Blood Venous blood specimen / Unknown Venipuncture / Unknown 07/02/2024 8:30 AM EDT 07/02/2024 11:09 AM EDT us Enedelia Rdz MD LAB BLOOD ORDERABLES Fin al Result [facility] [address] [place] [address], * JOSE LUIS DEXA AXIAL SKELETON (01/04/2018 2:07 PM EDT) Anatomical Region Laterality Modality Mammography 01/04/2018 12:5 7 PM EDT Narrative 01/04/2018 2:07 PM EDT [facility] Diagnostic Imaging Department [address] [place] [address] Patient: BONNIE ZAMBRANO Hazel Carbajal./Age/Sex: 1950 - 67 - F Unit#: [id number] Location/Status: SPDIMAM/REG CLI Mnemonic/[facility] Ordering Physician: JEANNE KILLIAN MD Jose Luis [...] probability of hip fracture of 7.0%. Code 20130 Dictating Physician: PEE KILGORE MD Electronically Signed by: PEE KILGORE MD Dic Date/Time: 01/04/181403 Sign date/Time: 01/04/181406 Procedure Note Pee Kilgore MD - 03/02/2022 [facility] Diagnostic Imaging Department [address] [place] [address] Patient: BONNIE ZAMBRANO Hazel Barrientos/Age/Sex: 1950 - 67 - F Unit#: [id number] Location/Status: [facility] [address] Mnemonic/Ordering Site: [facility] Ordering Physician: JEANNE KILLIAN MD [facility] [...] density of the femurs bilaterally is 0.745 gm/uj9yaegt is 74% of that of young normals [...] probability of hip fracture of 7.0%. Code 66392 Dictating Physician: PEE KILGORE MD Electronically Signed by: PEE KILGORE MD Dic Date/Time: 01/04/18 1404 Sign date/Time: 01/04/18 140 Jeanne Killian MD IMG BI PROCEDURES Final Resul t from Last 3 Months or Most Recently Relevant to Health Maintenance Insurance [address] [place] MEDICARE [facility] Care Teams Cotton Bag Sewer Relationship Specialty Start Date End Date Enedelia Rdz MD [address] [place] [address] PCP - General Family Medicine 06/22/24
--- OUTSIDE RECORDS SUMMARY | 2024-12-13 11:58 | XMS_ITS | Encounter Summary ---
Author Organization [facility] Address [address] [place] [address] Care Team Providers Care Global Category Manager Name Role Phone Enedelia Rdz MD Primary Care Provider + Encounter Details Date Type Department Care Team (Late st Contact Info) Description 06/22/2024 Lab Requisition [facility] - Main Lab [address] [facility] [employer] [place] [address] Enedelia Rdz MD [address] [address] Chronic kidney disease, unspecified; Essential [...] Result [facility] [address] [place] [address], * (ABNORMAL) Vitamin B12 (06/22/2024 6:36 AM EDT) [facility] Vitamin B-12 1,115(H) 250 - 900 pcg/mL LAB CHEMISTRY METHOD 06/22/2024 9:55 AM EDT [facility] Blood Venous blood specimen / Unknown Venipuncture / Unknown 06/22/2024 6:36 AM EDT 06/22/2024 8:02 AM EDT Enedelia Rdz MD LAB BLOOD ORDERABLES Fin al Result [facility] [address] [place] [address], [place] [phone] * Folate (06/22/2024 6:36 AM EDT) [facility] Folate 9.5 2.8 - 17.0 ng/ml LAB CHEMISTRY METHOD 06/22/2024 9:55 AM EDT [facility] Blood Venous blood specimen / Unknown Venipuncture / Unknown 06/22/2024 6:36 AM EDT 06/22/2024 8:02 AM EDT Enedelia Rdz MD LAB BLOOD ORDERABLES Fin al Result [facility] [address] [place] [address], [place] [phone] * (ABNORMAL) Comprehensive metabolic panel (06/22/2024 6:36 AM EDT) [facility] Sodium 138 133 - 145 mmol/L LAB CHEMISTRY METHOD 06/22/2024 9:32 AM EDT [facility] Potassium 3.9 3.5 - 5.5 mmol/L LAB CHEMISTRY METHOD 06/22/2024 9:32 AM EDT [facility] Chloride 105 96 - 110 mmol/L LAB CHEMISTRY METHOD 06/22/2024 9:32 AM EDT [facility] CO2 28 [...] [facility] Comment:Calculation based on the Chronic [...] Result [facility] [address] [place] [address], * (ABNORMAL) Complete blood count (06/22/2024 6:36 [...] 9:02 AM [facility] RDW 13.4 11.0 - 15.0 % LAB HEMETOLOGY METHOD 06/22/2024 9:02 AM EDT [facility] Platelets 108(L) 130 - 400 K/mcL LAB HEMETOLOGY METHOD 06/22/2024 9:02 AM EDT [facility] MPV 10.2 7.0 - 11.0 FL LAB HEMETOLOGY METHOD 06/22/2024 9:02 AM EDT [facility] NRBC 0.0 <1.0 % LAB HEMETOLOGY METHOD 06/22/2024 9:02 AM EDT [facility] NRBC Absolute 0.00 <0.10 K/mcL LAB HEMETOLOGY METHOD 06/22/2024 9:02 AM EDT [facility] Blood Venous blood specimen / Unknown Venipuncture / Unknown 06/22/2024 6:36 AM EDT 06/22/2024 8:02 AM EDT us Enedelia Rdz MD LAB BLOOD ORDERABLES Fin al Result [facility] [address] [place] [address], documented in this encounter Visit Diagnoses Diagnosis Chronic kidney disease, unspecified Essential (primary) hypertension Unspecified essential hypertension Chronic obstructive pulmonary disease, unspecified (CMS/HCC V24, CMS/HCC V28) Gastro-esophageal reflux disease without esophagitis Thrombocytopenia, unspecified (CMS/HCC V24) Thrombocytopenia, unspecified documented in this encounter Care Teams Global Category Manager Relationship Specialty Start Date End Date Enedelia Rdz MD [address] [place] [address] PCP - General Family Medicine 06/22/24 documented as of this encounter
--- OUTSIDE RECORDS SUMMARY | 2024-12-13 11:58 | XMS_ITS | Encounter Summary ---
Author Organization [facility] Address [address] [place] [address] Care Team Providers Care Steamboat Captain Name Role Phone Enedelia Rdz MD Primary Care Provider + Encounter Details Date Type Department Care Team (Late st Contact Info) Description 06/25/2024 Lab Requisition [facility] - Main Lab 299 [facility] [place] [address] Enedelia Rdz MD [address] [phone] Chronic kidney disease, unspecified; Gastro-esophageal reflux disease [...] Result [facility] [address] [place] [address], * (ABNORMAL) Complete blood count (06/25/2024 7:57 AM EDT) WBC 11.3(H) 4.8 - 10.8 K/mcL LAB HEMETOLOGY METHOD 06/25/2024 12:56 PM EDT [facility] RBC 3.20(L) 3.80 - 4.80 M/mcL LAB HEMETOLOGY METHOD 06/25/2024 12:56 PM EDT [facility] Hemoglobin 9.9(L) 11.5 - 16.0 g/dL LAB HEMETOLOGY METHOD 06/25/2024 12:56 PM EDT [facility] Hematocrit 30.7(L) 35.0 - 47.0 % LAB HEMETOLOGY METHOD 06/25/2024 12:56 PM EDT [facility] MCV 95.0 79.0 - 98.0 FL LAB HEMETOLOGY METHOD 06/25/2024 12:56 PM EDT [facility] MCH 30.7 27.0 - 32.0 pcg LAB HEMETOLOGY METHOD 06/25/2024 12:56 PM EDT [facility] MCHC 32.2 32.0 - 37.0 g/dL LAB HEMETOLOGY METHOD 06/25/2024 12:56 PM EDT [facility] RDW 14.1 11.0 - 15.0 % LAB HEMETOLOGY METHOD 06/25/2024 12:56 PM EDT [facility] Platelets 209 130 - 400 K/mcL LAB HEMETOLOGY METHOD 06/25/2024 12:56 PM EDT [facility] MPV 10.4 7.0 - 11.0 FL LAB HEMETOLOGY METHOD 06/25/2024 12:56 PM EDT [facility] NRBC 0.0 <1.0 % LAB HEMETOLOGY METHOD 06/25/2024 12:56 PM EDT [facility] NRBC Absolute 0.00 <0.10 K/mcL LAB HEMETOLOGY METHOD 06/25/2024 12:56 PM EDT [facility] Blood Venous blood specimen / Unknown Venipuncture / Unknown 06/25/2024 7:57 AM EDT 06/25/2024 11:58 AM EDT us Enedelia Rdz MD LAB BLOOD ORDERABLES Fin al Result [facility] [address] [place] [address], documented in this encounter Visit Diagnoses Diagnosis Chronic kidney disease, unspecified Gastro-esophageal reflux disease without esophagitis Essential (primary) hypertension Unspecified essential hypertension Thrombocytopenia, unspecified (CMS/HCC V24) Thrombocytopenia, unspecified documented in this encounter Care Teams Steamboat Captain Relationship Specialty Start Date End Date Enedelia Rdz MD [address] [place] [address] PCP - General Family Medicine 06/22/24 documented as of this encounter
--- OUTSIDE RECORDS SUMMARY | 2024-12-13 11:58 | XMS_ITS | Encounter Summary ---
Author Organization [facility] Address [address] [place] [address] [place] [address] Phone Care Team Providers Care Builder Beam Name Role Phone Self-Referred, Patient Unavailable Unavailab Benito Morrow MD, MPH Unavailable [phone] Jeanne Killian MD Primary Care Provider [phone] Puma Kang MD, MPH Unavailable [phone] Eric Stevenson MD Unavailable [phone] Geri Parks MD Unavailable [phone] Encounter Details Date Type Department Care Team (Late st Contact Info) Description 06/16/2017 Procedure Pass [facility] Radiology [address] [place] [address] Social History Tobacco Use Types Packs/Day Years [...] Description 04/04/2025 1:00 PM EST Office Visit [address] [address] Benito Mcconnell MD, MPH [address] [place] [address] [email or web address] documented as of this encounter Visit Diagnoses Not on filedocumented in this encounter Care Teams Builder Beam Relationship Specialty Start Date End Date Jeanne Killian MD [address] [facility] [place] [address] PCP - General Internal Medicine 01/20/16 Self-Referred, Patient 12/29/15 Benito Mcconnell MD, MPH [address] [facility] [address] [place] [address] [email or web address] Primary Oncologist Urology 12/29/15 Puma Kang MD, MPH [address] [facility], [facility] [place] [address] [email or web address] Radiation Oncology 02/06/16 Eric Stevenson MD [address] [place] [address], [address] [place] [address] [email or web address] Urology 02/06/16 Geri Parks MD [address] [place] [address] [email or web address] Primary Oncologist Oncology 02/06/16 documented as of this encounter Additional Source Comments The information contained in this document represents components of the legal health record. It is not the complete legal health record.[facility]
--- OUTSIDE RECORDS SUMMARY | 2024-12-13 11:59 | XMS_ITS | Encounter Summary ---
Author Organization [facility] Address [address] [place] [address] Phone Care Team Providers Care Field Coordinator Name Role Phone Self-Referred, Patient Unavailable Unavailab Benito Morrow MD, MPH Unavailable [phone] Jeanne Killian MD Primary Care Provider [phone] Puma Kang MD, MPH Unavailable [phone] Eric Stevenson MD Unavailable [phone] Geri Parks MD Unavailable [phone] Reason for Referral * MRI/CAT Scan - Closed Specialty Diagnoses / Procedures Referred By Trever manuel Referred To Contact Radiology Diagnoses Bladder cancer Procedures CT Chest Benito Mcconnell MD, MPH Phone: tel: fax: mailto:[email or web address] Referral ID Status Reason Start Date Expiration Date Visits Re quested Visits Authorized [id number] Closed 05/09/2019 05/08/2020 1 1 Encounter Details Date Type Department Care Team ([facility] st Contact Info) Description 05/09/2019 Ancillary Orders [facility] Urology [address] [place], [place] [address] [place] [address] Benito Mcconnell MD, MPH [address] [place] [address] 11[address] [place], [place] [id number] [email or web address] Bladder cancer Social History Tobacco [...] Description 04/04/2025 1:00 PM EST Office Visit [address] [address] Benito Mcconnell MD, MPH [address] [place] [address] [email or web address] documented as of this encounter [...] unspecified documented in this encounter Care Teams Field Coordinator Relationship Specialty Start Date End Date Jeanne Killian MD [address] [place] [address] PCP - General Internal Medicine 01/20/16 Self-Referred, Patient 12/29/15 Benito Mcconnell MD, MPH [address] [place] [address] 11[address] [place] [address] [email or web address] Primary Oncologist Urology 12/29/15 Puma Kang MD, MPH [address] [place] [address], ASB1- [address] [place] [address] [email or web address] Radiation Oncology 02/06/16 Eric Stevenson MD [address] [place] [address], [address] [place] [address] Urology 02/06/16 Geri Parks MD [address] [place] [address] [email or web address] Primary Oncologist Oncology 02/06/16 documented as of this encounter Additional Source Comments The information contained in this document represents components of the legal health record. It is not the complete legal health record.[facility]
--- OUTSIDE RECORDS SUMMARY | 2024-12-13 11:59 | XMS_ITS | Encounter Summary ---
Author Organization [facility] Address [address] [place] [address] Phone Care Team Providers Care Line Worker Name Role Phone Self-Referred, Patient Unavailable Unavailab Benito Morrow MD, MPH Unavailable [phone] Jeanne Killian MD Primary Care Provider [phone] Puma Kang MD, MPH Unavailable [phone] Eric Stevenson MD Unavailable [phone] Geri Parks MD Unavailable [phone] Reason for Referral * MRI/CAT Scan - Closed Specialty Diagnoses / Procedures Referred By Contmigel t Referred To Contact Radiology Diagnoses Malignant neoplasm of lateral wall of urinary bladder Procedures CT 3D Reconstruction Abdomen and Pelvis Benito Mcconnell MD, MPH Phone: tel: fax: mailto:[email or web address] Referral ID Status Reason Start Date Expiration Date Visits Re quested Visits Authorized [id number] Closed 10/12/2018 10/12/2019 1 1 Encounter Details Date Type Department Care Team (Late st Contact Info) Description 10/12/2018 Ancillary Orders [facility] Urology [address] [place], [place] [address] [place] [address] Benito Mcconnell MD, MPH [address] [place] [address] [email or web address] Malignant neoplasm of lateral wall of [...] Description 04/04/2025 1:00 PM EST Office Visit [address] [address] Benito Mcconnell MD, MPH [address] [place] [address] [email or web address] documented as of this encounter Results [...] changes of the lumbar spine. Procedure Note oCry Galeana MD - 10/19/2018 Reason for exam [...] bladder documented in this encounter Care Teams Line Worker Relationship Specialty Start Date End Date Jeanne Killian MD [address] [facility] [place] [address] PCP - General Internal Medicine 01/20/16 Self-Referred, Patient 12/29/15 Benito Mcconnell MD, MPH [address] [place] [address] 11[address] [place] [address] [email or web address] Primary Oncologist Urology 12/29/15 Puma Kang MD, MPH [address] [place] [address] ASB1- [address]2 [place] [address] [email or web address] Radiation Oncology 02/06/16 [place] [address] [place] [address], [address] [place] [address] [email or web address] Urology 02/06/16 Geri Parks MD [address] [place] [address] [email or web address] Primary Oncologist Oncology 02/06/16 documented as of this encounter Additional Source Comments The information contained in this document represents components of the legal health record. It is not the complete legal health record.[facility]
--- OUTSIDE RECORDS SUMMARY | 2024-12-13 11:59 | XMS_ITS | Encounter Summary ---
Author Organization [facility] Address [address] [place] [address] Phone Care Team Providers Care Formstone Fitter Name Role Phone Self-Referred, Patient Unavailable Unavailab Benito Morrow MD, MPH Unavailable [phone] Jeanne Killian MD Primary Care Provider [phone] Puma Kang MD, MPH Unavailable [phone] Eric Stevenson MD Unavailable [phone] Geri Parks MD Unavailable [phone] Encounter Details Date Type Department Care Team (Late st Contact Info) Description 09/04/2020 Procedure Pass [facility] [address] [place] [address] Social History Tobacco Use Types Packs/Day Years [...] Description 04/04/2025 1:00 PM EST [facility] [address] [place] [address] Benito Mcconnell MD, MPH [address] [place] [address] 11[address] [place] [address] [email or web address] documented as of this encounter Visit Diagnoses Not on filedocumented in this encounter Care Teams Formstone Fitter Relationship Specialty Start Date End Date Jeanne Killian MD [address] [facility] [place] [address] PCP - General Internal Medicine 01/20/16 Self-Referred, Patient 12/29/15 Benito Mcconnell MD, MPH [address] [place] [address] 11[address] [place] [address] [email or web address] Primary Oncologist Urology 12/29/15 Puma Kang MD, MPH [address] [place] [address], [facility]- L[address] [place] [address] ROSANNA@[email or web address] Radiation Oncology 02/06/16 Eric Stevenson MD [address] [place] [address], [address] [address] [email or web address] Urology 02/06/16 Geri Parks MD [address] [place] [address] [email or web address] Primary Oncologist Oncology 02/06/16 documented as of this encounter Additional Source Comments The information contained in this document represents components of the legal health record. It is not the complete legal health record.[facility]
--- OUTSIDE RECORDS SUMMARY | 2024-12-13 11:59 | XMS_ITS | Encounter Summary ---
Author Organization [facility] Address [address] [place] [address] Phone Care Team Providers Care Customer Support Executive Name Role Phone Self-Referred, Patient Unavailable Unavailab Benito Morrow MD, MPH Unavailable [phone] Jeanne Killian MD Primary Care Provider [phone] Puma Kang MD, MPH Unavailable [phone] Eric Stevenson MD Unavailable [phone] Geri Parks MD Unavailable [phone] Encounter Details Date Type Department Care Team (Late st Contact Info) Description 06/04/2021 Procedure Pass [facility] [address] [place] [address] Social History Tobacco Use Types Packs/Day Years [...] 04/04/2025 1:00 PM EST [facility] [place] [address] Benito Mcconnell MD, MPH [address] [place] [address] 11-[address] [place] [address] [email or web address] documented as of this encounter Visit Diagnoses Not on filedocumented in this encounter Care Teams Customer Support Executive Relationship Specialty Start Date End Date Jeanne Killian MD [address] [facility] [address] PCP - General Internal Medicine 01/20/16 Self-Referred, Patient 12/29/15 Benito Mcconnell MD, MPH [address] [place] [address] 11[address] [place] [address] [email or web address] Primary Oncologist Urology 12/29/15 Puma Kang MD, MPH [address] [place] [address], [facility]1- [address] [place] [address] [email or web address]@[email or web address] Radiation Oncology 02/06/16 Eric Stevenson MD [address] [place] [address], [address] [address] [email or web address] Urology 02/06/16 Geri Parks MD [address] [place] [address] [email or web address] Primary Oncologist Oncology 02/06/16 documented as of this encounter Additional Source Comments The information contained in this document represents components of the legal health record. It is not the complete legal health record.[facility]
--- OUTSIDE RECORDS SUMMARY | 2024-12-13 11:59 | XMS_ITS | Encounter Summary ---
Author Organization [facility] Address [address] [place] [address] Phone Care Team Providers Care Renewable Energy Project Manager Name Role Phone Self-Referred, Patient Unavailable Unavailab Benito [place] MD, MPH Unavailable [phone] Jeanne Killian MD Primary Care Provider Puma Kang MD, MPH Unavailable [phone] Eric Stevenson MD Unavailable [phone] Geri Parks MD Unavailable [phone] Encounter Details Date Type Department Care Team (Late st Contact Info) Description 09/04/2020 Procedure Pass [facility] 20 [place] [address] Social History Tobacco Use Types Packs/Day Years [...] Description 04/04/2025 1:00 PM EST [facility] [place] [address] Benito Mcconnell MD, MPH [address] [place] [address] 11[address] [place] [address] BRISA@[email or web address] documented as of this encounter Visit Diagnoses Not on filedocumented in this encounter Care Teams Renewable Energy Project Manager Relationship Specialty Start Date End Date Jeanne Killian MD [address] [place] [address] PCP - General Internal Medicine 01/20/16 Self-Referred, Patient 12/29/15 Benito Mcconnell MD, MPH [address] [place] [address] [address] [place] [address] [email or web address] Primary Oncologist Urology 12/29/15 Puma Kang MD, MPH [address] [place] [address], [facility]- L[address] [place] [address] [email or web address]@[email or web address] Radiation Oncology 02/06/16 Eric [place] MD [address] [place] [address], [address] [address] [email or web address] Urology 02/06/16 Geri Parks MD [address] [place] [address] [email or web address] Primary Oncologist Oncology 02/06/16 documented as of this encounter Additional Source Comments The information contained in this document represents components of the legal health record. It is not the complete legal health record.[facility]
--- OUTSIDE RECORDS SUMMARY | 2024-12-13 12:00 | XMS_ITS | Encounter Summary ---
Author Organization [facility] Address [address] [place] [address] [place] [address] Phone Care Team Providers Care Trouble Lineman Name Role Phone Self-Referred, Patient Unavailable Unavailab le Benito Mcconnell MD, MPH Unavailable [phone] Jeanne Killian MD Primary Care Provider [phone] Puma Kang MD, MPH Unavailable [phone] Eric [place] MD Unavailable [phone] Geri Parks MD Unavailable [phone] Reason for Referral * MRI/CAT Scan - Closed Specialty Diagnoses / Procedures Referred By Contmigel t Referred To Contact Procedures CT Abdomen Outside (No Interpretation) Benito Mcconnell MD, MPH Phone: tel: fax: mailto:[email or web address] Referral ID Status Reason Start Date Expiration Date Visits Re quested Visits Authorized [id number] Closed 02/18/2017 02/18/2018 1 1 Encounter Details Date Type Department Care Team (Late st Contact Info) Description 02/18/2017 Transcribe Orders [facility] [address] [place] [address] Jordyn [email or web address] Social History Tobacco Use Types Packs/Day Years [...] 1:00 PM EST [facility] [address] [place] [address] Benito Mcconnell MD, MPH [address] [place], [place] [address] [place], [place] [email or web address] documented as of this encounter Results * CT Abdomen Outside (No Interpretation) (02/18/2017 12:00 AM EST) Narrative [facility] - 02/18/2017 10:27 AM EST This study is for PACS storage only and not for interpretation. us Benito Mcconnell MD, MPH IMG OUTSIDE IMAGING W/OUT INTERPRETATION Final Result Performing Organization Address City/State/[facility] Co de Phone Number [facility] documented in this encounter Visit Diagnoses Not on filedocumented in this encounter Care Teams Trouble Lineman Relationship Specialty Start Date End Date Jeanne Killian MD [address] [place] [address] PCP - General Internal Medicine 01/20/16 Self-Referred, Patient 12/29/15 Benito Mcconnell MD, MPH [address] [place] [address] 11-3 [place], [place] [email or web address] Primary Oncologist Urology 12/29/15 Puma Kang MD, MPH [address] [place] [address], [facility]1- L2 [place], [place] [email or web address] Radiation Oncology 02/06/16 Eric [place] MD [address] [place] [address], [address] [place] [address] [email or web address] Urology 02/06/16 Geri [place] MD [address] [place] [address] [email or web address] Primary Oncologist Oncology 02/06/16 documented as of this encounter Additional Source Comments The information contained in this document represents components of the legal health record. It is not the complete legal health record.[facility]
--- OUTSIDE RECORDS SUMMARY | 2024-12-13 12:00 | XMS_ITS | Encounter Summary ---
Author Organization [facility] Address [address] [place] [address] [place] [address] Phone Care Team Providers Care Textile Designer Name Role Phone Self-Referred, Patient Unavailable Unavailab Benito [place] MD, MPH Unavailable [phone] Jeanne Killian MD Primary Care Provider [phone] Puma Kang MD, MPH Unavailable [phone] Eric [place] MD Unavailable [phone] Geri Parks MD Unavailable [phone] Encounter Details Date Type Department Care Team (Late st Contact Info) Description 02/18/2017 Procedure Pass [facility] 75 [place] [address] Social History Tobacco Use Types Packs/Day Years [...] Description 04/04/2025 1:00 PM EST Office Visit [address] [address] Benito Mcconnell MD, MPH [address] [place] [address] [email or web address] documented as of this encounter Visit Diagnoses Not on filedocumented in this encounter Care Teams Textile Designer Relationship Specialty Start Date End Date Jeanne Killian MD [address] [facility] [place] [address] PCP - General Internal Medicine 01/20/16 Self-Referred, Patient 12/29/15 Benito Mcconnell MD, MPH [address] [facility] 11-[address] [place] [address] [email or web address] Primary Oncologist Urology 12/29/15 Puma Kang MD, MPH 75 [facility], [facility]1- L2 [place] [address] [email or web address] Radiation Oncology 02/06/16 Eric [place] MD [address] [place] [address], [address] [place] [address] [email or web address] Urology 02/06/16 Geri Parks MD [address] [place] [address] [email or web address] Primary Oncologist Oncology 02/06/16 documented as of this encounter Additional Source Comments The information contained in this document represents components of the legal health record. It is not the complete legal health record.[facility]
--- OUTSIDE RECORDS SUMMARY | 2024-12-13 12:00 | XMS_ITS | Encounter Summary ---
Author Organization [facility] Address [address] [place] [address] Phone Care Team Providers Care Rig Welder Name Role Phone Self-Referred, Patient Unavailable Unavailab Benito [place] MD, MPH Unavailable [phone] Jeanne Killian MD Primary Care Provider Puma Kang MD, MPH Unavailable [phone] Eric [place] MD Unavailable [phone] Geri Parks MD Unavailable [phone] Encounter Details Date Type Department Care Team (Late st Contact Info) Description 06/04/2021 Procedure Pass [facility] 20 [place] [address] Social History Tobacco Use Types Packs/Day Years [...] Description 04/04/2025 1:00 PM EST [facility] [place] [address] Benito Mcconnell MD, MPH [address] [place] [address] 11[address] [place] [address] BRISA@[email or web address] documented as of this encounter Visit Diagnoses Not on filedocumented in this encounter Care Teams Rig Welder Relationship Specialty Start Date End Date Jeanne Killian MD [address] [facility] [place] [address] PCP - General Internal Medicine 01/20/16 Self-Referred, Patient 12/29/15 Benito Mcconnell MD, MPH [address] [place] [address] [address] [place] [address] [email or web address] Primary Oncologist Urology 12/29/15 Puma Kang MD, MPH [address] [place] [address], [facility]- L[address] [place] [address] ROSANNA@[email or web address] Radiation Oncology 02/06/16 Eric [place] MD [address] [place] [address], [address] [address] [email or web address] Urology 02/06/16 Geri [place] MD [address] [place] [address] [email or web address] Primary Oncologist Oncology 02/06/16 documented as of this encounter Additional Source Comments The information contained in this document represents components of the legal health record. It is not the complete legal health record.[facility]
== END 2024-12-13 10:54 | disposition home or self-care (01) ==
LOC: HO.HPS 10:27
PROVIDERS: PCP Internal Medicine; Visit Provider Internal Medicine
DX: J44.9 Chronic obstructive pulmonary disease, unspecified (principal); J98.4 Other disorders of lung
CPT/HCPCS: 99213

== ENCOUNTER → 2024-12-13 10:26 | Outpatient (BNVA) | payer MEDICARE, SELFPAY | PROVIDERS: PCP Internal Medicine; Visit Provider Internal Medicine | DX: J44.9 Chronic obstructive pulmonary disease, unspecified (principal); J98.4 Other disorders of lung | CPT/HCPCS: 99212 ==

== ENCOUNTER 2025-01-31 14:47 | Outpatient (AMB) | payer MEDICARE, SELFPAY ==
[2025-01-31 14:48] VITALS: BP 124/60; PULSE 63; BMI 28.0
--- NOTE | 2025-01-31 14:48 | A.OFFVIS_ITS ---
Vital Signs 01/31/25 14:48 Height 5 ft 3 in Weight 158 lb 4.67 oz BMI 28.0 BP 124/60 Blood Pressure Location Lt brachial Position Sitting Pulse 63 Pulse Source Pulse Oximeter Intake Visit Reasons: 6m F/U R/S 01/22/25 Business Intelligence Engineer Required: No Accompanied by: Self / Same As Patient Allergies cefotetan Allergy (Unknown, Verified 01/31/25 14:55) unknown cefuroxime (From Ceftin) Allergy (Unknown, Verified 01/31/25 14:55) Unknown ciprofloxacin (Cipro) Allergy (Unknown, Verified 01/31/25 14:55) unknown latex Allergy (Unknown, Verified 01/31/25 14:55) Unknown moxifloxacin (From Avelox) Allergy (Unknown, Verified 01/31/25 14:55) Unknown prochlorperazine (From Compazine) Allergy (Unknown, Verified 01/31/25 14:55) Unknown alendronate sodium Adverse Reaction (Intermediate, Verified 01/31/25 14:55) Stomach Upset amlodipine Adverse Reaction (Uncoded 12/13/24 10:56) Abdominal Pain Medication List - Last Reconciled 01/31/25 by Justin Shields NP atorvastatin 40 mg PO DAILY cholecalciferol (vitamin D3) (Vitamin D3) 25 mcg PO DAILY fluticasone furoate-vilanterol 200-25 mcg/dose (Breo Ellipta) 1 inh inhalation DAILY 30 days furosemide 20 mg PO DAILY lisinopril 1/2 orally daily; multivitamin 1 tab PO DAILY omeprazole 40 mg PO DAILY@0630 propranolol 20 mg PO BID sertraline 50 mg PO DAILY spironolactone 25 mg (1/2 x 50 mg) PO DAILY HPI Comments Details: This is a 74-year-old female patient coming in for a follow-up visit. Patient with a history of COPD, bladder cancer, breast cancer, hypertension, HFpEF, and aortic stenosis. Patient previously in the hospital back in June for type 2 NSTEMI related to influenza and pneumonia as patient cardiac catheterization showed no significant coronary artery disease. Patient has been going to cardiac rehab regularly and is reporting feeling well overall without any cardiac symptoms of exertional chest pain, shortness of breath, palpitations, dizziness, orthopnea, PND, leg edema, presyncope or syncope. Patient is reporting compliance with all her medications. [facility] Medical History Hearing loss (HFpEF) heart failure with preserved ejection fraction Cirrhosis Bladder carcinoma Osteoporosis Annual physical exam Restrictive lung disease Pulmonary nodule Allergic rhinitis Atypical ductal hyperplasia of breast COPD (chronic obstructive pulmonary disease) Thrombocytopenia Aortic valve sclerosis Breast CA Depression Essential hypertension Portal hypertension Surgical History H/O colonoscopy History of esophagogastroduodenoscopy (EGD) History of surgery History of inguinal hernia repair Hx of cholecystectomy Family History Father No problems noted. Mother Colon cancer Sister Breast cancer Social History Household Members: None Household Members Other:: lives alone Housing: House Do you presently have visiting nurse or other home services: No Alcohol intake: current Alcohol intake frequency: holidays/special occasions only Patient Tobacco Use Status: Never used Tobacco e-Cigarette/Vaping Use: Never Used Second Hand Smoke Exposure: No service: No Current occupational status: retired Cognitive needs: No Hearing needs: No Vision needs: Yes Review of Systems Const Denies daytime sleepiness, Denies difficulty sleeping, Denies snoring, Denies stops breathing during sleep and Denies weakness Card Denies chest pain, Denies rapid heart rate, Denies irregular heart rhythm, Denies claudication, Denies leg edema, Denies lightheadedness, Denies palpitations, Denies dyspnea, Reports dyspnea on exertion, Denies orthopnea, Denies paroxysmal nocturnal dyspnea and Denies slow heart rate Resp Denies cough, Denies dyspnea, Reports dyspnea on exertion and Denies snoring GI Reports no additional complaints, Denies hematochezia, Denies change in stool character and Denies dyspepsia Musc Denies abnormal gait, Denies muscle weakness and Denies numbness Neuro Denies abnormal gait, Denies numbness and Denies weakness Endo Denies palpitations Physical Exam Vital Signs: Last Vital Signs Pulse 63 01/31/25 14:48 BP 124/60 01/31/25 14:48 BMI result Body Mass Index 28.0 Const General: cooperative, healthy appearing, comfortable and no acute distress Orientation/consciousness: patient oriented x3 HEENT Head: Yes normal to inspection Neck Neck: Yes normal visual inspection, Yes trachea midline and Yes supple Chest Chest palpation & inspection: normal inspection of the chest Resp Effort & Inspection: normal respiratory effort Auscultation: clear to auscultation bilaterally, no crackles, no rales, no rhonchi and no wheezes Cardio Jugular venous distension: no JVD Palpation: normal PMI Rate: regular rate Rhythm: regular rhythm Heart sounds: S1 normal heart sound present, S2 normal heart sound present, no click, no gallops, Murmur heart sound present systolic at the right sternal border and no rubs Peripheral pulses: Peripheral pulses 2+ throughout GI Inspection: Yes normal to inspection Palpation (GI): Soft to palpation Auscultation: normal bowel sounds Skin General skin exam: no rashes or lesions noted Neuro General: patient oriented x3 Extrem General: Yes normal to inspection, No no pedal edema and No calf tenderness Psych Appearance: grossly normal Mental Status: mental status grossly normal Speech and movement: Normal speech and movement present Assessment & Plan Assessment & Plan (1) (HFpEF) heart failure with preserved ejection fraction: Comment: Echo 06/2024 EF 69%. Mild septal asymmetric hypertrophy, evwh-yr-dukmdxre aortic stenosis, cardiac catheterization not significant coronary artery disease 06/2024 Code(s): I50.30 - Unspecified diastolic (congestive) heart failure Category: Medical Plan: 06/13/2024-echo study showed a normal LV systolic function with an ejection fraction at 69%, with jipy-ml-jynmteme aortic valve stenosis with a mean gradient of 22 mmHg. Clinically stable and euvolemic. Continue Lasix, lisinopril, propranolol, and spironolactone therapy. Discussed signs and symptoms to watch for with heart failure. Advised on low-salt diet, daily weight monitoring, and compression socks as needed. Cardinal signs of also reviewed with the patient. We will plan to repeat an echo prior to next visit. (2) Aortic stenosis: Code(s): I35.0 - Nonrheumatic aortic (valve) stenosis Category: Medical Plan: As above. (3) Non-ST elevation NH (NSTEMI): Code(s): I21.4 - Non-ST elevation (NSTEMI) myocardial infarction Category: Medical Plan: Patient was in the hospital back in June for flu and pneumonia and ruled in for NSTEMI due to elevated troponins. Cardiac catheterization on 06/15/2024 showed no significant coronary artery disease. NSTEMI was noted to be type 2 related to viral infection. Most recent LDL at 57. Continue statin therapy with an LDL goal closer to 70. (4) Essential hypertension: Code(s): I10 - Essential (primary) hypertension Category: Medical Plan: Blood pressure today is well-controlled. Continue current regimen with a blood pressure goal less than 130/80. Advised monitoring blood pressures at home. Advised on low-salt diet. Advised on heart healthy diet, regular exercise, med compliance, and management of vascular risk factors. Follow up in 6 months. In the interim, patient will call the office with any concerns or change in symptoms. This note was generated using voice recognition software. While every effort has been made to ensure accuracy and proper mobile application development lead, there may be occasional errors that could affect the content or meaning of the described symptoms. Orders: Orders CA echo transthoracic complete 6 Months I35.0 - Nonrheumatic aortic (valve) stenosis, I50.30 - Unspecified diastolic (congestive) heart failure Coding Level of Care Code Est Pt Level 4 (03828) Complex visit Add On G2211 Diagnoses (HFpEF) heart failure with preserved ejection fraction I50.30 Aortic stenosis I35.0 Non-ST elevation NH (NSTEMI) I21.4 Essential hypertension I10 Time Spent (min) 32 Comment Time spent in reviewing the chart, test results, assessment, counseling and documentation.
--- OUTSIDE RECORDS SUMMARY | 2025-01-31 20:15 | XMS_ITS | Encounter Summary ---
Author Organization [facility] Address [address] [place] [address] Phone Care Team Providers Care Retail Commission Sales Associate Name Role Phone Self-Referred, Patient Unavailable Unavailab Benito [place] MD, MPH Unavailable [phone] Jeanne Killian MD Primary Care Provider [phone] Puma Kang MD, MPH Unavailable [phone] Eric [place] MD Unavailable [phone] Geri Parks MD Unavailable [phone] Encounter Details Date Type Department Care Team (Late st Contact Info) Description 01/03/2020 Procedure Pass [facility] 20 [place] [address] Social History Tobacco Use Types Packs/Day Years [...] 04/04/2025 1:00 PM EST [facility] [place] [address] Benito Mcconnell MD, MPH [address] [place] [address] [place] [address] [email or web address] documented as of this encounter Visit Diagnoses Not on filedocumented in this encounter Care Teams Retail Commission Sales Associate Relationship Specialty Start Date End Date Jeanne [place] MD [facility] [place] [address] PCP - General Internal Medicine 01/20/16 Self-Referred, Patient 12/29/15 Benito Mcconnell MD, MPH [address] [place] [address] 11-3 [place] [address] [email or web address] Primary Oncologist Urology 12/29/15 Puma Kang MD, MPH [address] [place] [address], [facility]1- L2 [place] [address] ROSANNA@[email or web address] Radiation Oncology 02/06/16 Eric [place] MD [address] [place] [address], [address] [address] [email or web address] Urology 02/06/16 Geri [place] MD [address] [place] [address] [email or web address] Primary Oncologist Oncology 02/06/16 documented as of this encounter Additional Source Comments The information contained in this document represents components of the legal health record. It is not the complete legal health record.[facility]
--- OUTSIDE RECORDS SUMMARY | 2025-01-31 20:16 | XMS_ITS | Encounter Summary ---
Author Organization [facility] Address [address] [place] [address] [place] [address] Phone Care Team Providers Care Telephone Maintainer Name Role Phone Self-Referred, Patient Unavailable Unavailab Benito [place] MD, MPH Unavailable [phone] Jeanne Killian MD Primary Care Provider [phone] Puma Kang MD, MPH Unavailable [phone] Eric [place] MD Unavailable [phone] Geri Parks MD Unavailable [phone] Encounter Details Date Type Department Care Team (Late st Contact Info) Description 04/27/2017 Procedure Pass [facility] 75 [place] [address] Social History Tobacco Use Types Packs/Day Years [...] Description 04/04/2025 1:00 PM EST Office Visit [address] [address] Benito Mcconnell MD, MPH [address] [place] [address] BRISA@[email or web address] documented as of this encounter Visit Diagnoses Not on filedocumented in this encounter Care Teams Telephone Maintainer Relationship Specialty Start Date End Date Jeanne Killian MD [address] [place] [address] PCP - General Internal Medicine 01/20/16 Self-Referred, Patient 12/29/15 Benito Mcconnell MD, MPH 45 [facility] 11-[address] [place] [address] [email or web address] Primary Oncologist Urology 12/29/15 Puma Kang MD, MPH 75 [facility], [facility]1- L2 [place] [address] ROSANNA@[email or web address] Radiation Oncology 02/06/16 Eric [place] MD [address] [place] [address], [address] [place] [address] [email or web address] Urology 02/06/16 Geri [place] MD [address] [place] [address] [email or web address] Primary Oncologist Oncology 02/06/16 documented as of this encounter Additional Source Comments The information contained in this document represents components of the legal health record. It is not the complete legal health record.[facility]
--- OUTSIDE RECORDS SUMMARY | 2025-01-31 20:16 | XMS_ITS | Encounter Summary ---
Author Organization [facility] Address [address] [place] [address] [place] [address] Phone Care Team Providers Care Manager Of Hospital Name Role Phone Self-Referred, Patient Unavailable Unavailab Benito [place] MD, MPH Unavailable [phone] Jeanne Killian MD Primary Care Provider [phone] Puma Kang MD, MPH Unavailable [phone] Eric [place] MD Unavailable [phone] Geri Parks MD Unavailable [phone] Encounter Details Date Type Department Care Team (Late st Contact Info) Description 06/16/2017 Procedure Pass [facility] Radiology [address] [place] [address] Social History Tobacco Use Types Packs/Day Years [...] 04/04/2025 1:00 PM EST Office Visit [address] [address] Benito Mcconnell MD, MPH [address] [place] [address] [email or web address] documented as of this encounter Visit Diagnoses Not on filedocumented in this encounter Care Teams Manager Of Hospital Relationship Specialty Start Date End Date Jeanne Killian MD [address] [place] [address] PCP - General Internal Medicine 01/20/16 Self-Referred, Patient 12/29/15 Benito Mcconnell MD, MPH 45 [facility] 11-[address] [place] [address] [email or web address] Primary Oncologist Urology 12/29/15 Puma Kang MD, MPH 75 [facility], [facility]1- L2 [place] [address] ROSANNA@[email or web address] Radiation Oncology 02/06/16 Eric [place] MD [address] [place] [address], [address] [place] [address] [email or web address] Urology 02/06/16 Geri [place] MD [address] [place] [address] [email or web address] Primary Oncologist Oncology 02/06/16 documented as of this encounter Additional Source Comments The information contained in this document represents components of the legal health record. It is not the complete legal health record.[facility]
--- OUTSIDE RECORDS SUMMARY | 2025-01-31 20:16 | XMS_ITS | Encounter Summary ---
Author Organization [facility] Address [address] [place] [address] Phone Care Team Providers Care Interventional Cardiologist Name Role Phone Self-Referred, Patient Unavailable Unavailab Benito Morrow MD, MPH Unavailable [phone] Jeanne Killian MD Primary Care Provider [phone] Puma Kang MD, MPH Unavailable [phone] Eric Stevenson MD Unavailable [phone] Geri Parks MD Unavailable [phone] Encounter Details Date Type Department Care Team (Late Contact Info) Description 03/05/2016 Procedure Pass [facility] Periop [address] [place] [address] Social History Tobacco Use Types Packs/Day Years [...] 04/04/2025 1:00 PM EST Office Visit [facility] 20 [place] [address] Benito Mcconnell MD, MPH [address] [place] [address] [email or web address] documented as of this encounter Visit Diagnoses Not on filedocumented in this encounter Care Teams Interventional Cardiologist Relationship Specialty Start Date End Date Jeanne Killian MD [address] [place] [address] PCP - General Internal Medicine 01/20/16 Self-Referred, Patient 12/29/15 Benito Mcconnell MD, MPH 45 [facility] 11-3 [place] [address] [email or web address] Primary Oncologist Urology 12/29/15 Puma Kang MD, MPH 75 [facility], ASB1- L2 [place] [address] ROSANNA@[email or web address] Radiation Oncology 02/06/16 Eric Stevenson MD [facility]0 [facility], [address] [place] [address] [email or web address] Urology 02/06/16 Geri Parks MD [address] [place] [address] [email or web address]@[email or web address] Primary Oncologist Oncology 02/06/16 documented as of this encounter Additional Source Comments The information contained in this document represents components of the legal health record. It is not the complete legal health record.[facility]
--- OUTSIDE RECORDS SUMMARY | 2025-01-31 20:16 | XMS_ITS | Encounter Summary ---
Author Organization [facility] Address [address] [place] [address] [place] [address] Phone Care Team Providers Care Citrus Picker Name Role Phone Self-Referred, Patient Unavailable Unavailab Benito Morrow MD, MPH Unavailable [phone] Jeanne Killian MD Primary Care Provider [phone] Puma Kang MD, MPH Unavailable [phone] Eric Stevenson MD Unavailable [phone] Geri Parks MD Unavailable Encounter Details Date Type Department Care Team (Late st Contact Info) Description 06/16/2017 Procedure Pass [facility] Radiology 75 [place] [address] Social History Tobacco Use Types Packs/Day Years [...] Description 04/04/2025 1:00 PM EST Office Visit [address] [address] Benito Mcconnell MD, MPH [address] [place] [address] [email or web address] documented as of this encounter Visit Diagnoses Not on filedocumented in this encounter Care Teams Citrus Picker Relationship Specialty Start Date End Date Jeanne Killian MD [address] [place] [address] PCP - General Internal Medicine 01/20/16 Self-Referred, Patient 12/29/15 Benito Mcconnell MD, MPH 45 [facility] [address] [place] [address] [email or web address] Primary Oncologist Urology 12/29/15 Puma Kang MD, MPH 75 [facility], [facility]1- L2 [place] [address] ROSANNA@[email or web address] Radiation Oncology 02/06/16 Eric Stevenson MD [address] [place] [address], [address] [place] [address] [email or web address] Urology 02/06/16 Geri Parks MD [address] [place] [address] [email or web address] Primary Oncologist Oncology 02/06/16 documented as of this encounter Additional Source Comments The information contained in this document represents components of the legal health record. It is not the complete legal health record.[facility]
--- OUTSIDE RECORDS SUMMARY | 2025-01-31 20:16 | XMS_ITS | Encounter Summary ---
Author Organization [facility] Address [address] [place] [address] Phone Care Team Providers Care Insurance Claim Representative Name Role Phone Self-Referred, Patient Unavailable Unavailab le Benito Mcconnell MD, MPH Unavailable [phone] Jeanne Killian MD Primary Care Provider [phone] Puma Kang MD, MPH Unavailable [phone] Eric Stevenson MD Unavailable [phone] Geri Parks MD Unavailable [phone] Reason for Referral * MRI/CAT Scan - Closed Specialty Diagnoses / Procedures Referred By Contac t Referred To Contact Procedures CT Chest Outside (No Interpretation) Benito Mcconnell MD, MPH Phone: tel: fax: mailto:[email or web address] Referral ID Status Reason Start Date Expiration Date Visits Re quested Visits Authorized [id number] Closed 04/27/2017 04/27/2018 1 1 Encounter Details Date Type Department Care Team (Late st Contact Info) Description 04/27/2017 Transcribe Orders [facility] [address] [place] [address] Mookie Barton [address] [place] [address] [email or web address] Social History Tobacco Use Types Packs/Day [...] 04/04/2025 1:00 PM EST Office Visit [address] [address] Benito Mcconnell MD, MPH [address] [place] [address] [email or web address] documented as [...] on filedocumented in this encounter Care Teams Insurance Claim Representative Relationship Specialty Start Date End Date Jeanne Killian MD [address] [place] [address] PCP - General Internal Medicine 01/20/16 Self-Referred, Patient 12/29/15 Benito Mcconnell MD, MPH [address] [place] [address] [email or web address] Primary Oncologist Urology 12/29/15 Puma Kang MD, MPH [address] [place] [address], ASB1- L2 [place] [address] ROSANNA@[email or web address] Radiation Oncology 02/06/16 Eric Stevenson MD [address] [place] [address], [address] [place] [address] [email or web address] Urology 02/06/16 Geri Parks MD [address] [place] [address] [email or web address] Primary Oncologist Oncology 02/06/16 documented as of this encounter Additional Source Comments The information contained in this document represents components of the legal health record. It is not the complete legal health record.[facility]
--- OUTSIDE RECORDS SUMMARY | 2025-01-31 20:16 | XMS_ITS | Encounter Summary ---
Author Organization [facility] Address [address] [place] [address] Phone Care Team Providers Care Services Account Manager Name Role Phone Self-Referred, Patient Unavailable Unavailab Benito Morrow MD, MPH Unavailable [phone] Jeanne Killian MD Primary Care Provider Jeanne Killian MD Primary Care Provider Puma Kang MD, MPH Unavailable [phone] Eric Stevenson MD Unavailable [phone] Geri Parks MD Unavailable [phone] Encounter Details Date Type Department Care Team (Late st Contact Info) Description 01/19/2016 Procedure Pass [facility] [address] [place] [address] Social History Tobacco Use Types Packs/Day Years [...] Description 04/04/2025 1:00 PM EST [facility] [address] [place] [address] Benito Mcconnell MD, MPH [address] [place] [address] [email or web address] documented as of this encounter Visit Diagnoses Not on filedocumented in this encounter Care Teams Services Account Manager Relationship Specialty Start Date End Date Jeanne Killian MD [address] [place] [address] PCP - General Internal Medicine 01/20/16 Jeanne Killian MD [address] [place] [address] PCP - General Internal Medicine 01/19/16 01/19/16 Self-Referred, Patient 12/29/15 Benito Mcconnell MD, MPH [address] [place] [address] [address] [place] [address] [email or web address] Primary Oncologist Urology 12/29/15 Puma Kang MD, MPH [address] [place] [address], ASB1- L2 [place] [address] ROSANNA@[email or web address] Radiation Oncology 02/06/16 Eric Stevenson MD [address] [place] [address], [address] [place] [address] [email or web address] Urology 02/06/16 Geri Parks MD [address] [place] [address] [email or web address] Primary Oncologist Oncology 02/06/16 documented as of this encounter Additional Source Comments The information contained in this document represents components of the legal health record. It is not the complete legal health record.[facility]
--- OUTSIDE RECORDS SUMMARY | 2025-01-31 20:16 | XMS_ITS | Encounter Summary ---
Author Organization [facility] Address [address] [place] [address] [place] [address] Phone Care Team Providers Care Field Interviewer Name Role Phone Self-Referred, Patient Unavailable Unavailab Benito Morrow MD, MPH Unavailable [phone] Jeanne Killian MD Primary Care Provider [phone] Puma Kang MD, MPH Unavailable [phone] Eric Stevenson MD Unavailable [phone] Geri Parks MD Unavailable [phone] Encounter Details Date Type Department Care Team (Late st Contact Info) Description 06/16/2017 Procedure Pass [facility] [address] [place] [address] Social History Tobacco Use Types Packs/Day Years [...] Description 04/04/2025 1:00 PM EST Office Visit [facility] 20 [place] [address] Benito Mcconnell MD, MPH [address] [place] [address] [email or web address] documented as of this encounter Visit Diagnoses Not on filedocumented in this encounter Care Teams Field Interviewer Relationship Specialty Start Date End Date Jeanne Killian MD [address] [place] [address] PCP - General Internal Medicine 01/20/16 Self-Referred, Patient 12/29/15 Benito Mcconnell MD, MPH [address] [place] [address] 11[address] [place], [place] BRISA@[email or web address] Primary Oncologist Urology 12/29/15 Puma Kang MD, MPH 75 [facility], ASB1- L2 [place] [address] ROSANNA@[email or web address] Radiation Oncology 02/06/16 Eric Stevenson MD [address] [place] [address], [address] [place] [address] [email or web address] Urology 02/06/16 Geri Parks MD [address] [place] [address] [email or web address] Primary Oncologist Oncology 02/06/16 documented as of this encounter Additional Source Comments The information contained in this document represents components of the legal health record. It is not the complete legal health record.[facility]
--- OUTSIDE RECORDS SUMMARY | 2025-01-31 20:16 | XMS_ITS | Encounter Summary ---
Author Organization [facility] Address [address] [place] [address] [place] [address] Phone Care Team Providers Care Manager Of Digital Name Role Phone Self-Referred, Patient Unavailable Unavailab Benito Morrow MD, MPH Unavailable [phone] Jeanne Killian MD Primary Care Provider Puma Kang MD, MPH Unavailable [phone] Eric Stevenson MD Unavailable [phone] Geri Parks MD Unavailable [phone] Encounter Details Date Type Department Care Team (Late st Contact Info) Description 04/07/2023 Procedure Pass [address] [address] Social History Tobacco Use Types Packs/Day Years [...] Description 04/04/2025 1:00 PM EST [facility] [address] [place] [address] Benito Mcconnell MD, MPH [address] [place] [address] [place] [address] BRISA@[email or web address] documented as of this encounter Visit Diagnoses Not on filedocumented in this encounter Care Teams Manager Of Digital Relationship Specialty Start Date End Date Jeanne Killian MD [facility] [address] PCP - General Internal Medicine 01/20/16 Self-Referred, Patient 12/29/15 Benito Mcconnell MD, MPH [address] [place] [address] [address] [place] [address] BRISA@[email or web address] Primary Oncologist Urology 12/29/15 Puma Kang MD, MPH [address] [place] [address], [facility]1- L2 [place] [address] ROSANNA@[email or web address] Radiation Oncology 02/06/16 Eric Stevenson MD [address] [place] [address], [address] [place] [address] [email or web address] Urology 02/06/16 Geri Parks MD [address] [place] [address] [email or web address] Primary Oncologist Oncology 02/06/16 documented as of this encounter Additional Source Comments The information contained in this document represents components of the legal health record. It is not the complete legal health record.[facility]
--- OUTSIDE RECORDS SUMMARY | 2025-01-31 20:16 | XMS_ITS | Patient Health Record ---
Author Organization [facility] Address [address] [place] [address] Care Team Providers Care Afterschool Babysitter Name Role Phone Jeanne Killian MD Primary Care Provider Unavaila ble Black, Tessa Unavailable [phone] Allergies Allergen (clinical drug ingredient) Drug/Non Drug [...] Problem Acquired hammer toe of right foot (9568969931049049 ) Other hammer toe(s) (acquired), right foot (M20.41) Active confirmed Problem Acquired hammer toe of left foot (9831749406587609 ) Other hammer toe(s) (acquired), left foot (M20.42) Active confirmed Problem Acquired hallux valgus (11286041) Hallux valgus (acquired), left foot (M20.12) Active confirmed Problem Acquired hallux valgus (37822932) Hallux valgus (acquired), right foot (M20.11) Active confirmed Problem Localized, primary osteoarthritis of the ankle and/or foot (778130885) Osteoarthritis of right ankle and foot (M19.071) Active confirmed Problem Localized, primary osteoarthritis of the ankle and/or foot (129156906) Osteoarthritis of left ankle and foot (M19.072) Active confirmed Plan Of Treatment No Information Insurance Providers Payer Name Payer Address Payer Phone Subscriber Number Group Number Insured Name Patient Relationship to Insured Coverage Start Date Coverage End Date Medicare National Govt Sv[employer] [address] [facility] [place] [address] [id number] Nayeli Fofana Self - patient is the insured [employer] Blue [employer] [address] [place] [address] [id number] Nayeli Fofana Self - patient is the insured Medical (General) History Medical History History ICD Code Arthritis asthma Gall bladder problems High blood pressure Kidney disease Liver disease Osteoporosis Measles Mumps Chicken pox Transfusions Congenitive Hepatic Fibrosis Surgical History Surgery Date(Month/Year) Breast Surgery x2 1978,2020 kidney surgery 2016 gall bladder 2013 hernia
--- OUTSIDE RECORDS SUMMARY | 2025-01-31 20:16 | XMS_ITS | Encounter Summary ---
Author Organization [facility] Address [address] [place] [address] Phone Care Team Providers Care Senior It Auditor Name Role Phone Self-Referred, Patient Unavailable Unavailab Benito Morrow MD, MPH Unavailable [phone] Jeanne Killian MD Primary Care Provider Jeanne Killian MD Primary Care Provider Puma Kang MD, MPH Unavailable [phone] Eric Stevenson MD Unavailable [phone] Geri Parks MD Unavailable [phone] Encounter Details Date Type Department Care Team (Late st Contact Info) Description 01/19/2016 Procedure Pass [facility] [address] [place] [address] Social History Tobacco Use Types Packs/Day Years [...] Description 04/04/2025 1:00 PM EST [facility] [address] [place] [address] Benito Mcconnell MD, MPH [address] [place] [address] [email or web address] documented as of this encounter Visit Diagnoses Not on filedocumented in this encounter Care Teams Senior It Auditor Relationship Specialty Start Date End Date Jeanne Killian MD [address] [place] [address] PCP - General Internal Medicine 01/20/16 Jeanne Killian MD [address] [place] [address] PCP - General Internal Medicine 01/19/16 01/19/16 Self-Referred, Patient 12/29/15 Benito Mcconnell MD, MPH [address] [place] [address] [address] [place] [address] [email or web address] Primary Oncologist Urology 12/29/15 Puma Kang MD, MPH [address] [place] [address], ASB1- L2 [place] [address] ROSANNA@[email or web address] Radiation Oncology 02/06/16 Eric Stevenson MD [address] [place] [address], [address] [place] [address] [email or web address] Urology 02/06/16 Geri Parks MD [address] [place] [address] [email or web address] Primary Oncologist Oncology 02/06/16 documented as of this encounter Additional Source Comments The information contained in this document represents components of the legal health record. It is not the complete legal health record.[facility]
--- OUTSIDE RECORDS SUMMARY | 2025-01-31 20:16 | XMS_ITS | Data Portability ---
Author Organization [facility] [address] Address [address] [place] [address] Care Team Providers Care Adjunct Spanish Instructor Name Role Phone LUCILLE BURNS Primary Care Provider Assessment No assessment recorded. Plan of Treatment Reminders Order Date Submit Date Provider Last Modified By Organization Details Last Modified Time Details Appointments None recorded. Lab None recorded. Referral None recorded. Procedures None recorded. Surgeries None recorded. Imaging None recorded. Medication Orders doxycycline hyclate 100 mg tablet 2022 023 [facility] [id number], [address] [place], [place], [id number], 3 11:56:50 benzonatate 200 mg capsule 2022 023 [facility] [place] [facility] [employer] #[id number], [address] [place], [place], [id number], 3 11:56:50 Patient TargetsNo targets recorded. Patient Instructions Encounter Date Encounter Id Patient Instructions Last Modified By Organization Details Last Modified Time 09/11/2022 [id number] cough: care instructions [email or web address] Not available 09/11/2022 11:56:39 You are being [...] or lung pathology. Thank you for using [facility] today - please don't hesitate to contact up or return to see if you have any questions or concerns. [email or web address] Not available 09/11/2022 11:55:42 Reason for Referral None Reported. 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 Medical Equipment None Reported. Allergies Allergen ID Allergen Name Allergen Category Reaction Reaction Severity Criticality Documentation Date Start Date Code Code System Note Provider Name and Address Organization Details Recorded Time 007326 Compazine medicatio n Not available Not available Not available 09/11/2022 28558 6 RxNorm Allie Galeana null, [place] - [facility] 3 11:19:10 829512 Fosamax medicatio n Not available Not available Not available 09/11/2022 34568 5 RxNorm Allie Galeana null, [place] - [facility] 3 11:19:22 008739 Cipro medicatio n Not available Not available Not available 09/11/202223779 3 RxNorm Allie Galeana null, [place] - [facility] 3 11:19:29 147819 Ceftin medicatio n Not available Not available Not available 09/11/2022 08826 6 RxNorm Allie Galeana null, PA - [...] [Score] - Reported Respiratory rate Oxygen saturation Heart rate Body temperature Systolic And Diastolic Provider Name and Address Organization Details Last Updated DateTime 3 160.02 cm 29.8 kg/m2 66586.5 2 g 5 20 /min 96 % 65 /min 98.5 [degF] 164/88 mm[Hg] Alliegautam Rangelellie PA - [facility] 3 11:27:38 Social History Question Answer Notes LastModified by [employer] Details LastModified Time Tobacco Smoking Status Never Smoker Allie richter [place] - [facility] 09/11/2022 11:25:16 Have You Recently Traveled Abroad? No Information not available 09/11/2022 Sex: Unknown Functional Status Question Answer Note LastModified by [employer] Details LastModified Time Do you use any [...] Diagnosis SNOMED-CT Code Diagnosis ICD10 Code Diagnosis IMO Codes Diagnosis Note [id number] [address] [facility] [address] [place] [address] 01/12/2015 09:01:28 01/12/2015 09:34:14 [id number] GINI ISBELL [address] [place] [address] 09/11/2022 11:07:38 09/11/2022 11:57:33 Acute sinusitis 47988723 J01.90 Cough 41488432 R05.9 History of Chronic Bronchitis . Hypertensive disorder 38 970113 I10 Your blood pressure was elevated today [...] Member ID Guarantor Name 09/13/2022 2 [place] [facility] - [place]CT[facility] (O) [id number] Benny Fofana [id number] Nayeli Clayuchra 09/13/2022 2 [place] Nayeli Clayuchra [id number] Nayeli E Czuchra 09/11/2022 2 [place] Nayeli Hazel Czuchra [id number] Nayeli E Czuchra 09/11/2022 1 [place] [employer] Nayelimarla Clayuchra [id number] Nayeli E Czuchra Notes Date Note Type Note Provider Name and Address Organization Details Recorded Time 3 text/html Sinus Complaints UCReported by PatientHPIFor location, patient reportssinus pressure. For associated symptoms, patient reportssore throat,post nasal drip, andcoughbut reportsno nasal discharge,no fever,no difficulty breathing,no nausea or vomiting,no nasal passage blockage, andno ear fullness. For context, patient reportsworse with seasonal allergen exposurebut reportsno recent sick contacts. For severity, patient reportsmild. For risk factors, patient reportsno current smoking or tobacco useandno history of nasal trauma. For alleviating factors, patient reportsantihistamine cetirizine.The patient has a strong history of sinusitis [...] not take her blood pressure medication today. CoughReported by Patient [facility] IS[facility]LL [facility] [place], [address], [place] - [facility] 09/11/2022 13:31:17 OBGyn Episode No OBEpisode recorded.
--- OUTSIDE RECORDS SUMMARY | 2025-01-31 20:16 | XMS_ITS | Encounter Summary ---
Author Organization [facility] Address [address] [place] [address] [place] [address] Phone Care Team Providers Care Plastic Sheets Finishing Supervisor Name Role Phone Self-Referred, Patient Unavailable Unavailab Benito Morrow MD, MPH Unavailable [phone] Jeanne Killian MD Primary Care Provider [phone] Puma Kang MD, MPH Unavailable [phone] Eric Stevenson MD Unavailable [phone] Geri Parks MD Unavailable [phone] Encounter Details Date Type Department Care Team (Late st Contact Info) Description 04/05/2024 Procedure Pass [address] [address] Social History Tobacco Use Types Packs/Day Years [...] Description 04/04/2025 1:00 PM EST [facility] [address] [place] [address] Benito Mcconnell MD, MPH [address] [place] [address] [place] [address] [email or web address] documented as of this encounter Visit Diagnoses Not on filedocumented in this encounter Care Teams Plastic Sheets Finishing Supervisor Relationship Specialty Start Date End Date Jeanne Killian MD [place] [address] PCP - General Internal Medicine 01/20/16 Self-Referred, Patient 12/29/15 Benito Mcconnell MD, MPH [address] [place] [address] 11-3 [place] [address] [email or web address] Primary Oncologist Urology 12/29/15 Puma Kang MD, MPH [address] [place] [address], [facility]1- L2 [place] [address] ROSANNA@[facility] Radiation Oncology 02/06/16 Eric Stevenson MD [address] [place] [address], [address] [place] [address] [email or web address] Urology 02/06/16 Geri Parks MD [address] [place] [address] [email or web address] Primary Oncologist Oncology 02/06/16 documented as of this encounter Additional Source Comments The information contained in this document represents components of the legal health record. It is not the complete legal health record.[facility]
--- OUTSIDE RECORDS SUMMARY | 2025-01-31 20:16 | XMS_ITS | Encounter Summary ---
Author Organization [facility] Address [address] [place] [address] Phone Care Team Providers Care Proposal Editor Name Role Phone Self-Referred, Patient Unavailable Unavailab Benito Morrow MD, MPH Unavailable [phone] Jeanne Killian MD Primary Care Provider [phone] Puma Kang MD, MPH Unavailable [phone] Eric Stevenson MD Unavailable [phone] Geri Parks MD Unavailable [phone] Encounter Details Date Type Department Care Team (Late st Contact Info) Description 01/03/2020 Procedure Pass [facility] 20 [place] [address] Social History Tobacco Use Types Packs/Day Years [...] Description 04/04/2025 1:00 PM EST [facility] [place] [address] Benito Mcconnell MD, MPH [address] [place] [address]3 [place] [address] [email or web address] documented as of this encounter Visit Diagnoses Not on filedocumented in this encounter Care Teams Proposal Editor Relationship Specialty Start Date End Date Jeanne Killian MD [facility] [place] [address] PCP - General Internal Medicine 01/20/16 Self-Referred, Patient 12/29/15 Benito Mcconnell MD, MPH [address] [place] [address] 11-3 [place] [address] [email or web address] Primary Oncologist Urology 12/29/15 Puma Kang MD, MPH [address] [place] [address], [facility]1- L2 [place] [address] ROSANNA@[email or web address] Radiation Oncology 02/06/16 Eric Stevenson MD [address] [place] [address], [address] [address] [email or web address] Urology 02/06/16 Geri Parks MD [address] [place] [address] [email or web address] Primary Oncologist Oncology 02/06/16 documented as of this encounter Additional Source Comments The information contained in this document represents components of the legal health record. It is not the complete legal health record.[facility]
--- OUTSIDE RECORDS SUMMARY | 2025-01-31 20:16 | XMS_ITS | Encounter Summary ---
Author Organization [facility] Address [address] [place] [address] [place] [address] Phone Care Team Providers Care Coke Oven Mason Name Role Phone Self-Referred, Patient Unavailable Unavailab Benito Morrow MD, MPH Unavailable [phone] Jeanne Killian MD Primary Care Provider [phone] Puma Kang MD, MPH Unavailable [phone] Eric Stevenson MD Unavailable [phone] Geri Parks MD Unavailable [phone] Encounter Details Date Type Department Care Team (Late st Contact Info) Description 04/22/2017 Procedure Pass [facility] [address] [place] [address] Social History Tobacco Use Types Packs/Day Years [...] [facility] 20 [place] [address] Benito Mcconnell MD, MPH [address] [place] [address] BRISA@[email or web address] documented as of this encounter Visit Diagnoses Not on filedocumented in this encounter Care Teams Coke Oven Mason Relationship Specialty Start Date End Date Jeanne Killian MD [address] [place] [address] PCP - General Internal Medicine 01/20/16 Self-Referred, Patient 12/29/15 Benito Mcconnell MD, MPH [address] [place] [address] 11-3 [place], [place] BRISA@[email or web address] Primary Oncologist Urology 12/29/15 Puma Kang MD, MPH [address] [facility], ASB1- L2 [place] [address] ROSANNA@[email or web address] Radiation Oncology 02/06/16 Eric Stevenson MD [address] [place] [address], [address] [place] [address] [email or web address] Urology 02/06/16 Geri Parks MD [address] [place] [address] [email or web address] Primary Oncologist Oncology 02/06/16 documented as of this encounter Additional Source Comments The information contained in this document represents components of the legal health record. It is not the complete legal health record.[facility]
--- OUTSIDE RECORDS SUMMARY | 2025-01-31 20:16 | XMS_ITS | Clinical Summary ---
Author Organization [facility] Address [address] [place] [address] Phone Care Team Providers Care Milk Collector Name Role Phone Self-Referred, Patient Unavailable Unavailab Benito Morrow MD, MPH Unavailable [phone] Jeanne Killian MD Primary Care Provider [phone] Puma Kang MD, MPH Unavailable Eric Stevenson MD Unavailable [phone] Geri Parks MD Unavailable [phone] Allergies Active Allergy Reactions Criticality Noted Date [...] by Puma Kang MD, MPH on 02/08/2016 Family History Medical History Relation Comments Colon [...] 1:00 PM EST [facility] [address] [place] [address] Benito Mcconnell MD, MPH [address] [place] [address] BRISA@[email or web address] Health Maintenance Due Date Last Done Comments Adult Td,Tdap Booster 1948 LIPID PANEL 1948 DEPRESSION SCREENING 1960 HEPATITIS C SCREENING 1966 ZOSTER VACCINES (1 of 2) 08/22/1967 OSTEOPOROSIS SCREENING INITIAL (ONE-TIME) 2013 PNEUMOCOCCAL VACCINES (50+ years) (3 of 3 - PCV) 10/05/2015 10/04/2014, 11/28/2009 POTASSIUM LEVEL 01/17/2021 01/18/2020, 02/11, 01/19/2016 INFLUENZA VACCINE (#1) 2024 , 11/25/2022, 12/13/2021, Additional history exists COVID-19 VACCINE (2024- season) 2024 01/07/2024, 03/03/2023, 12/22/2021, Additional history [...] Procedure Name Priority Date/Time Associated Diagnosis Comments POCT CREATININE/EGFR Routine 10/03/2024 1:02 PM EDT BASIC METABOLIC PANEL (BMP) Routine 01/18/2020 10:12 AM EST Malignant neoplasm of lateral wall of urinary bladder from Last 3 Months or Most Recently Relevant to Health Maintenance Results * (ABNORMAL) POCT Creatinine/eGFR (10/03/2024 1:02 PM EDT) CRE POC 1.2 0.5 - 1.2 mg/dL [facility] CT & MRI SUITE EGFR POC 47(L) >59 mL/min/1.7 3m2 [facility] CT & MRI SUITE Comment:Estimated glomerular filtration rate calculated using the CKD-EPI refit equation. 10/03/2024 1:02 PM EDT 10/03/2024 1:06 PM EDT us Benito Mcconnell MD, MPH POINT OF CARE TEST ORDERA BLES Final Result Performing Organization Address City/[facility] Co de Phone Number [facility] CT & MRI [address] [place] [address] * (ABNORMAL) Basic metabolic panel (01/18/2020 10:12 AM EST) SODIUM 139 136 - 145 mmol/L [facility] POTASSIUM 4.4 3.4 - 5.1 mmol/L [facility] CHLORIDE 104 98 - 107 mmol/L [facility] CO2 28 22 - 31 mmol/L [facility] BUN 24(H) 6 - 23 mg/dL [facility] Comment:VERIFIED CREATININE 1.06 0.50 - 1.20 mg/dL [facility] GLUCOSE 101(H) 70 - 100 mg/dL [facility] CALCIUM 9.4 8.8 - 10.7 mg/dL [facility] EGFR 53(L) >59 mL/min/1.7 3m2 [facility] Comment:Estimated glomerular filtration rate calculated using the CKD-EPI equation. ANION GAP 7 7 - 17 mmol/L [facility] 01/18/2020 10:1 2 AM EST 01/18/2020 10:18 AM EST us Lilia Sellers PA-C LAB BLOOD BKR SELVIN GAONA Final Result Performing Organization Address City/[facility] Co de Phone Number [facility] 20 [place] [address] from Last 3 Months or Most Recently Relevant to Health Maintenance Insurance MEDICARE PART A & B [employer] SUPPLEMENT MEDICARE PART A & B [employer] SUPPLEMENT MEDICARE PART A & B Member Subscriber Plan / Payer ( fective 2018-Present) Name:Nayeli Fofana Member ID:[id number] Relation to Subscriber:Self Name:Nayeli Fofana Subscriber ID:[id number] Payer ID:[id number] Group ID:Not on file Type:Medicare Address: [employer] [address] [place] [phone] [employer] MEDEX SUPPLEMENT MEDICARE PART A & B [employer] MEDEX SUPPLEMENT MEDICARE PART A & B [employer] MEDEX SUPPLEMENT MEDICARE PART A & B [employer] MEDEX SUPPLEMENT MEDICARE PART A & B [employer] MEDEX SUPPLEMENT MEDICARE PART A & B [employer] MEDEX SUPPLEMENT MEDICARE PART A & B [employer] [place] MED[place] SUPPLEMENT Care Teams Milk Collector Relationship Specialty Start Date End Date Jeanne Killian MD [address] [place] [address] PCP - General Internal Medicine 01/20/16 Self-Referred, Patient 12/29/15 Benito Mcconnell MD, MPH [address] [place] [address] 11-3 [place] [address] [email or web address] Primary Oncologist Urology 12/29/15 Puma Kang MD, MPH [address] [place] [address], ASB1- L2 [place] [address] ROSANNA@[email or web address] Radiation Oncology 02/06/16 Eric Stevenson MD [address] [place] [address], [address] [place] [address] [email or web address] Urology 02/06/16 Geri Parks MD [address] [place] [address] [email or web address] Primary Oncologist Oncology 02/06/16 Additional Source Comments The information contained in this document represents components of the legal health record. It is not the complete legal health record.[facility]
--- OUTSIDE RECORDS SUMMARY | 2025-01-31 20:16 | XMS_ITS | Encounter Summary ---
Author Organization [facility] Address [address] [place] [address] [place] [address] Phone Care Team Providers Care Supervisor Road Administrator Name Role Phone Self-Referred, Patient Unavailable Unavailab Benito Morrow MD, MPH Unavailable [phone] Jeanne Killian MD Primary Care Provider [phone] Puma Kang MD, MPH Unavailable [phone] Eric Stevenson MD Unavailable Geri Parks MD Unavailable [phone] Encounter Details Date Type Department Care Team (Late st Contact Info) Description 04/07/2023 Procedure Pass [address] [address] Social History Tobacco Use Types Packs/Day Years [...] Description 04/04/2025 1:00 PM EST [facility] [place] [address] Benito Mcconnell MD, MPH [address] [place] [address]3 [place] [address] [email or web address] documented as of this encounter Visit Diagnoses Not on filedocumented in this encounter Care Teams Supervisor Road Administrator Relationship Specialty Start Date End Date Jeanne Killian MD [facility] [place] [address] PCP - General Internal Medicine 01/20/16 Self-Referred, Patient 12/29/15 Benito Mcconnell MD, MPH [address] [place] [address] 11-3 [place] [address] BRISA@[email or web address] Primary Oncologist Urology 12/29/15 Puma Kang MD, MPH [address] [place] [address], [facility]1- L2 [place] [address] ROSANNA@[email or web address] Radiation Oncology 02/06/16 Eric Stevenson MD [address] [place] [address], [address] [place] [address] [email or web address] Urology 02/06/16 Geri Parks MD [address] [place] [address] [email or web address] Primary Oncologist Oncology 02/06/16 documented as of this encounter Additional Source Comments The information contained in this document represents components of the legal health record. It is not the complete legal health record.[facility]
--- OUTSIDE RECORDS SUMMARY | 2025-01-31 20:17 | XMS_ITS | Encounter Summary ---
Author Organization [facility] Address [address] [place] [address] Phone Care Team Providers Care Sample Coordinator Name Role Phone Self-Referred, Patient Unavailable Unavailab Benito Morrow MD, MPH Unavailable [phone] Jeanne Killian MD Primary Care Provider [phone] Puma Kang MD, MPH Unavailable [phone] Eric Stevenson MD Unavailable [phone] Geri Parks MD Unavailable [phone] Encounter Details Date Type Department Care Team (Late st Contact Info) Description 09/04/2020 Procedure Pass [facility] 20 [place] [address] Social History Tobacco Use Types Packs/Day Years [...] Description 04/04/2025 1:00 PM EST [facility] [address] [place] [address] Benito Mcconnell MD, MPH [address] [place] [address] 11-3 [place] [address] BRISA@[email or web address] documented as of this encounter Visit Diagnoses Not on filedocumented in this encounter Care Teams Sample Coordinator Relationship Specialty Start Date End Date Jeanne Killian MD [address] [place] [address] PCP - General Internal Medicine 01/20/16 Self-Referred, Patient 12/29/15 Benito Mcconnell MD, MPH [address] [place] [address] [place] [address] [email or web address] Primary Oncologist Urology 12/29/15 Puma Kang MD, MPH [address] [place] [address], [facility]1- L2 [place] [address] ROSANNA@[email or web address] Radiation Oncology 02/06/16 Eric Stevenson MD [address] [place] [address], [address] [address] [email or web address] Urology 02/06/16 Geri Parks MD [address] [place] [address] [email or web address] Primary Oncologist Oncology 02/06/16 documented as of this encounter Additional Source Comments The information contained in this document represents components of the legal health record. It is not the complete legal health record.[facility]
--- OUTSIDE RECORDS SUMMARY | 2025-01-31 20:17 | XMS_ITS | Encounter Summary ---
Author Organization [facility] Address [address] [place] [address] [place] [address] Phone Care Team Providers Care Mine Foreman Name Role Phone Self-Referred, Patient Unavailable Unavailab le Benito Mcconnell MD, MPH Unavailable [phone] Jeanne Killian MD Primary Care Provider [phone] Puma Kang MD, MPH Unavailable [phone] Eric Stevenson MD Unavailable [phone] Geri Parks MD Unavailable [phone] Reason for Referral * MRI/CAT Scan - Closed Specialty Diagnoses / Procedures Referred By Contmigel t Referred To Contact Procedures CT Abdomen Outside (No Interpretation) Benito Mcconnell MD, MPH Phone: tel: fax: mailto:[email or web address] Referral ID Status Reason Start Date Expiration Date Visits Re quested Visits Authorized [id number] Closed 02/18/2017 02/18/2018 1 1 Encounter Details Date Type Department Care Team (Late st Contact Info) Description 02/18/2017 Transcribe Orders [facility] [address] [place] [address] Jordyn Still [address] [place] [address] [email or web address] Social History Tobacco Use Types Packs/Day Years [...] Description 04/04/2025 1:00 PM EST Office Visit [address] [address] Benito Mcconnell MD, MPH [address] [place] [address] BRISA@[email or web address] documented as of this encounter Results * CT Abdomen Outside (No Interpretation) (02/18/2017 12:00 AM EST) Narrative [facility] - 02/18/2017 10:27 AM EST This study is for PACS storage only and not for interpretation. us Benito Mcconnell MD, MPH IMG OUTSIDE IMAGING W/OUT INTERPRETATION Final Result [facility] documented in this encounter Visit Diagnoses Not on filedocumented in this encounter Care Teams Mine Foreman Relationship Specialty Start Date End Date Jeanne Killian MD [address] [place] [address] PCP - General Internal Medicine 01/20/16 Self-Referred, Patient 12/29/15 Benito Mcconnell MD, MPH [address] [place] [address] [email or web address] Primary Oncologist Urology 12/29/15 Puma Kang MD, MPH [address] [place] [address], ASB1- L2 [place] [address] ROSANNA@[email or web address] Radiation Oncology 02/06/16 Eric Stevenson MD [address] [place] [address], [address] [place] [address] [email or web address] Urology 02/06/16 Geri Parks MD [address] [place] [address] [email or web address] Primary Oncologist Oncology 02/06/16 documented as of this encounter Additional Source Comments The information contained in this document represents components of the legal health record. It is not the complete legal health record.[facility]
--- OUTSIDE RECORDS SUMMARY | 2025-01-31 20:17 | XMS_ITS | Encounter Summary ---
Author Organization [facility] Address [address] [place] [address] Phone Care Team Providers Care Tandem Mill Sticker Name Role Phone Self-Referred, Patient Unavailable Unavailab Benito Morrow MD, MPH Unavailable [phone] Jeanne Killian MD Primary Care Provider [phone] Puma Kang MD, MPH Unavailable [phone] Eric Stevenson MD Unavailable [phone] Geri Parks MD Unavailable [phone] Encounter Details Date Type Department Care Team (Late st Contact Info) Description 06/04/2021 Procedure Pass [facility] 20 [place] [address] Social History Tobacco Use Types Packs/Day Years [...] Description 04/04/2025 1:00 PM EST [facility] [place] [address] Benito Mcconnell MD, MPH [address] [place] [address] 11-[address] [place] [address] BRISA@[email or web address] documented as of this encounter Visit Diagnoses Not on filedocumented in this encounter Care Teams Tandem Mill Sticker Relationship Specialty Start Date End Date Jeanne Killian MD [address] [place] [address] PCP - General Internal Medicine 01/20/16 Self-Referred, Patient 12/29/15 Benito Mcconnell MD, MPH [address] [place] [address] [place] [address] BRISA@[facility] Primary Oncologist Urology 12/29/15 Puma Kang MD, MPH [address] [place] [address], [facility]1- L2 [place] [address] ROSANNA@[facility] Radiation Oncology 02/06/16 Eric Stevenson MD [address] [place] [address], [address] [address] [email or web address] Urology 02/06/16 Geri Parks MD [address] [place] [address] [email or web address] Primary Oncologist Oncology 02/06/16 documented as of this encounter Additional Source Comments The information contained in this document represents components of the legal health record. It is not the complete legal health record.[facility]
--- OUTSIDE RECORDS SUMMARY | 2025-01-31 20:17 | XMS_ITS | Encounter Summary ---
Author Organization [facility] Address [address] [place] [address] Phone Care Team Providers Care Tariff Compiler Name Role Phone Self-Referred, Patient Unavailable Unavailab Benito Morrow MD, MPH Unavailable [phone] Jeanne Killian MD Primary Care Provider [phone] Puma Kang MD, MPH Unavailable [phone] Eric Stevenson MD Unavailable [phone] Geri Parks MD Unavailable [phone] Encounter Details Date Type Department Care Team (Late st Contact Info) Description 09/04/2020 Procedure Pass [facility] 20 [place] [address] Social History Tobacco Use Types Packs/Day Years [...] Description 04/04/2025 1:00 PM EST [facility] [address] [place] [address] Benito Mcconnell MD, MPH [address] [place] [address] 11-3 [place] [address] BRISA@[facility] documented as of this encounter Visit Diagnoses Not on filedocumented in this encounter Care Teams Tariff Compiler Relationship Specialty Start Date End Date Jeanne Killian MD [address] [place] [address] PCP - General Internal Medicine 01/20/16 Self-Referred, Patient 12/29/15 Benito Mcconnell MD, MPH [address] [place] [address] [place] [address] BRISA@[facility] Primary Oncologist Urology 12/29/15 Puma Kang MD, MPH [address] [place] [address], [facility]1- L2 [place] [address] ROSANNA@[facility] Radiation Oncology 02/06/16 Eric Stevenson MD [address] [place] [address], [address] [address] [email or web address] Urology 02/06/16 Geri Parks MD [address] [place] [address] [email or web address]@[email or web address] Primary Oncologist Oncology 02/06/16 documented as of this encounter Additional Source Comments The information contained in this document represents components of the legal health record. It is not the complete legal health record.[facility]
--- OUTSIDE RECORDS SUMMARY | 2025-01-31 20:17 | XMS_ITS | Encounter Summary ---
Author Organization [facility] Address [address] [place] [address] Phone Care Team Providers Care Carbonation Equipment Operator Name Role Phone Self-Referred, Patient Unavailable Unavailab Benito Morrow MD, MPH Unavailable [phone] Jeanne Killian MD Primary Care Provider Puma Kang MD, MPH Unavailable [phone] Eric Stevenson MD Unavailable [phone] Geri Parks MD Unavailable Encounter Details Date Type Department Care Team (Late st Contact Info) Description 06/04/2021 Procedure [facility] [address] [place] [address] Social History Tobacco Use Types Packs/Day Years [...] Description 04/04/2025 1:00 PM EST [facility] [address] [place] [address] Benito Mcconnell MD, MPH [address] [place] [address] [address] [place] [address] [email or web address] documented as of this encounter Visit Diagnoses Not on filedocumented in this encounter Care Teams Carbonation Equipment Operator Relationship Specialty Start Date End Date Jeanne Killian MD [address] [place] [address] PCP - General Internal Medicine 01/20/16 Self-Referred, Patient 12/29/15 Benito Mcconnell MD, MPH [address] [place] [address] [place] [address] [email or web address] Primary Oncologist Urology 12/29/15 Puma Kang MD, MPH [address] [place] [address], [facility] [place] [address] [email or web address] Radiation Oncology 02/06/16 Eric Stevenson MD [address] [place] [address], [address] [address] [email or web address] Urology 02/06/16 Geri Parks MD [address] [place] [address] [email or web address] Primary Oncologist Oncology 02/06/16 documented as of this encounter Additional Source Comments The information contained in this document represents components of the legal health record. It is not the complete legal health record.[facility]
--- OUTSIDE RECORDS SUMMARY | 2025-01-31 20:17 | XMS_ITS | Encounter Summary ---
Author Organization [facility] Address [address] [place] [address] Phone Care Team Providers Care Airport Operations Supervisor Name Role Phone Self-Referred, Patient Unavailable Unavailab Benito Morrow MD, MPH Unavailable [phone] Jeanne Killian MD Primary Care Provider [phone] Puma Kang MD, MPH Unavailable [phone] Eric Stevenson MD Unavailable [phone] Geri Parks MD Unavailable [phone] Reason for Referral * MRI/CAT Scan - Closed Specialty Diagnoses / Procedures Referred By Contmigel t Referred To Contact Radiology Diagnoses Malignant neoplasm of lateral wall of urinary bladder Procedures CT 3D Reconstruction Abdomen and Pelvis Benito Mcconnell MD, MPH Phone: tel: fax: mailto:[email or web address] Referral ID Status Reason Start Date Expiration Date Visits Re quested Visits Authorized [id number] Closed 10/12/2018 10/12/2019 1 1 Encounter Details Date Type Department Care Team (Late st Contact Info) Description 10/12/[address] [facility] Urology [address] [place], [place] [address]62[address] [place] [address] Benito Mcconnell MD, MPH [address] [place] [address] [email or web address] Malignant neoplasm of lateral wall of urinary [...] Description 04/04/2025 1:00 PM EST Office Visit [address] [address] Benito Mcconnell MD, MPH [address] [place] [address] [email or web address] documented as of this [...] bladder documented in this encounter Care Teams Airport Operations Supervisor Relationship Specialty Start Date End Date Jeanne Killian MD [address] [place] [address] PCP - General Internal Medicine 01/20/16 Self-Referred, Patient 12/29/15 Benito Mcconnell MD, MPH [address] [place] [address] 11- [place] [address] [email or web address] Primary Oncologist Urology 12/29/15 Puma Kang MD, MPH [address] [place] [address] ASB[address]- [address] [place] [address] [email or web address] Radiation Oncology 02/06/16 [place] [address] [place] [address], [address] [place] [address] [email or web address] Urology 02/06/16 Geri Parks MD [address] [place] [address] [email or web address] Primary Oncologist Oncology 02/06/16 documented as of this encounter Additional Source Comments The information contained in this document represents components of the legal health record. It is not the complete legal health record.[facility]
--- OUTSIDE RECORDS SUMMARY | 2025-01-31 20:17 | XMS_ITS | Encounter Summary ---
Author Organization [facility] Address [address] [place] [address] [place] [address] Phone Care Team Providers Care Content Designer Name Role Phone Self-Referred, Patient Unavailable Unavailab Benito Morrow MD, MPH Unavailable [phone] Jeanne Killian MD Primary Care Provider [phone] Puma Kang MD, MPH Unavailable [phone] Eric Stevenson MD Unavailable [phone] Geri Parks MD Unavailable [phone] Encounter Details Date Type Department Care Team (Late st Contact Info) Description 02/18/2017 Procedure Pass [facility] Radiology [address] [place] [address] Social History Tobacco Use Types Packs/Day Years [...] Description 04/04/2025 1:00 PM EST Office Visit [address] [address] Benito Mcconnell MD, MPH [address] [place] [phone] [email or web address] documented as of this encounter Visit Diagnoses Not on filedocumented in this encounter Care Teams Content Designer Relationship Specialty Start Date End Date Jeanne Killian MD [address] [place] [address] PCP - General Internal Medicine 01/20/16 Self-Referred, Patient 12/29/15 Benito Mcconnell MD, MPH 45 [facility] [address] [place] [address] [email or web address] Primary Oncologist Urology 12/29/15 Puma Kang MD, MPH 75 [facility], [facility]1- [address] [place] [address] [email or web address] Radiation Oncology 02/06/16 Eric Stevenson MD [address] [place] [address], [address] [place] [address] [email or web address] Urology 02/06/16 Geri Parks MD [address] [place] [address] [email or web address] Primary Oncologist Oncology 02/06/16 documented as of this encounter Additional Source Comments The information contained in this document represents components of the legal health record. It is not the complete legal health record.[facility]
--- OUTSIDE RECORDS SUMMARY | 2025-01-31 20:17 | XMS_ITS | Encounter Summary ---
Author Organization [facility] Address [address] [place] [address] Phone Care Team Providers Care Vaccinator Name Role Phone Self-Referred, Patient Unavailable Unavailab Benito Morrow MD, MPH Unavailable [phone] Jeanne Killian MD Primary Care Provider [phone] Puma Kang MD, MPH Unavailable [phone] Eric Stevenson MD Unavailable [phone] Geri Parks MD Unavailable [phone] Reason for Referral * MRI/CAT Scan - Closed Specialty Diagnoses / Procedures Referred By Trever manuel Referred To Contact Radiology Diagnoses Bladder cancer Procedures CT Chest Benito Mcconnell MD, MPH Phone: tel: fax: mailto:[email or web address] Referral ID Status Reason Start Date Expiration Date Visits Re quested Visits Authorized [id number] Closed 05/09/2019 05/08/2020 1 1 Encounter Details Date Type Department Care Team ([facility] st Contact Info) Description 05/09/2019 Ancillary Orders [facility] Urology [address] [place], [place] [address] [place] [address] Benito Mcconnell MD, MPH [address] [place] [address] 11[address] [place], [place] [id number] [email or web address] Bladder cancer Social History Tobacco Use Types [...] Description 04/04/2025 1:00 PM EST Office Visit [address] [address] Benito Mcconnell MD, MPH [address] [place] [address] [email or web address] documented as of this encounter Results [...] unspecified documented in this encounter Care Teams Vaccinator Relationship Specialty Start Date End Date Jeanne Killian MD [address] [place] [address] PCP - General Internal Medicine 01/20/16 Self-Referred, Patient 12/29/15 Benito Mcconnell MD, MPH [address] [place] [address] 11[address] [place] [address] [email or web address] Primary Oncologist Urology 12/29/15 Puma Kang MD, MPH [address] [place] [address], ASB[address] [place] [address] [email or web address] Radiation Oncology 02/06/16 Eric Stevenson MD [address] [place] [address], [address] [place] [address] [email or web address] Urology 02/06/16 Geri Parks MD [address] [place] [address] [email or web address] Primary Oncologist Oncology 02/06/16 documented as of this encounter Additional Source Comments The information contained in this document represents components of the legal health record. It is not the complete legal health record.[facility]
== END 2025-01-31 15:16 | disposition home or self-care (01) ==
LOC: HO.HCS 14:48
PROVIDERS: PCP Internal Medicine
DX: I50.30 Unspecified diastolic (congestive) heart failure (principal); I35.0 Nonrheumatic aortic (valve) stenosis; I21.4 Non-ST elevation (NSTEMI) myocardial infarction; I10 Essential (primary) hypertension
CPT/HCPCS: 99214; G2211

== ENCOUNTER → 2025-01-31 14:47 | Outpatient (BNVA) | payer MEDICARE, SELFPAY | PROVIDERS: PCP Internal Medicine | DX: I11.0 Hypertensive heart disease with heart failure (principal); I50.30 Unspecified diastolic (congestive) heart failure; I35.0 Nonrheumatic aortic (valve) stenosis; I21.4 Non-ST elevation (NSTEMI) myocardial infarction | CPT/HCPCS: 99212 ==

== ENCOUNTER 2025-02-13 07:00 | Outpatient (RCR) | payer MEDICARE, SELFPAY | END 2025-02-25 06:13 | disposition home or self-care (01) | LOC: HO.CR 07:00 | PROVIDERS: PCP Internal Medicine; Visit Provider Internal Medicine | DX: I21.4 Non-ST elevation (NSTEMI) myocardial infarction (principal) | CPT/HCPCS: 93797; 93798 ==

== ENCOUNTER 2025-02-26 09:57 | Outpatient (REF) | payer MEDICARE, SELFPAY ==
[2025-02-26 13:37] LABS: MANUAL DIFF FLAG NO
[2025-02-26 13:46] LABS: Hematocrit 33.2 % (37.0-47.0); Hemoglobin 10.8 g/dl (12.0-16.0); Imm Gran Abs Auto 0.02 X10*3/uL (0.00-0.03); Imm Gran Pct Auto 0.4 % (0.0-0.4); Lymphocytes Absolute Auto 1.1 X10*3/uL (1.2-4.9); Mean Corpuscular HGB Conc 32.5 g/dl (31.0-35.0); Mean Corpuscular Hemoglobin 30.5 pg (27.0-33.0); Mean Corpuscular Volume 93.8 fL (80.0-98.0); NRBC Abs Auto 0.000 X10*3/uL (0.0-0.012); NRBC Pct Auto 0.0 /100WBC (0.0-0.2); Platelet Count 104 X10*3/uL (160-400); Red Blood Count 3.54 X10*6/uL (4.20-5.50); Reticulocytes Absolute 0.049 X10*6/uL (0.026-0.095); White Blood Count 5.2 X10*3/uL (4.8-10.8)
[2025-02-26 15:16] LABS: Alanine Aminotransferase 25 U/L (0-31); Albumin Level 3.4 g/dL (3.5-5.0); Alkaline Phosphatase 97 U/L (39-117); Anion Gap 10 (12-20); Aspartate Amino Transferase 38 U/L (5-31); Blood Urea Nitrogen 23 mg/dL (9-16); Calcium 9.2 mg/dL (8.4-10.2); Carbon Dioxide 26 mmol/L (22-29); Chloride 110 mmol/L (96-108); Cholesterol 118 mg/dL (<200); Estimated Glomerular Filt Rate 43; HDL Cholesterol 47 mg/dL (>40); Iron 74 mcg/dL (30-160); Percent Iron Saturation 56 % (15-50); Potassium 4.8 mmol/L (3.3-5.1); Sodium 141 mmol/L (135-145); Total Iron Binding Capacity 131 mcg/dL (228-428); Total Protein 6.1 g/dL (6.5-8.0); Triglycerides 47 mg/dL (<150); Unsaturated Iron Binding 57 ug/dL
== END 2025-02-26 09:58 | disposition home or self-care (01) ==
LOC: HO.HMGCLDS 09:57
PROVIDERS: PCP Internal Medicine; Visit Provider Internal Medicine
DX: I13.0 Hypertensive heart and chronic kidney disease with heart failure and stage 1 through stage 4 chronic kidney disease, or unspecified chronic kidney disease (principal); I50.30 Unspecified diastolic (congestive) heart failure; N18.31 Chronic kidney disease, stage 3a; D69.6 Thrombocytopenia, unspecified; M81.0 Age-related osteoporosis without current pathological fracture; K76.6 Portal hypertension; Z79.899 Other long term (current) drug therapy
CPT/HCPCS: 36415; 80053; 80061; 83540; 85025; 85045

== ENCOUNTER 2025-02-26 09:57 | Outpatient (AMB) | payer MEDICARE, SELFPAY ==
[2025-02-26 10:07] VITALS: BP 140/74; PULSE 62; RESP 16; TEMP 36.8; O2SAT 95; BMI 28.2
--- NOTE | 2025-02-26 10:07 | AM.OFFVISMDC ---
Intake Vital Signs 02/26/25 10:07 Height 5 ft 3 in Weight 159 lb BMI 28.2 BP 140/74 H Blood Pressure Location Lt brachial Position Sitting Respiration 16 Pulse 62 Pulse Source Pulse Oximeter Temp 98.3 F Temp Source Oral Pulse Oximetry (%) 95 Oxygen Delivery Method Room Air Intake Visit Reasons: AWV Intake Note: Pt is here today for AWV. Allergies cefotetan Allergy (Unknown, Verified 02/26/25 10:19) unknown cefuroxime (From Ceftin) Allergy (Unknown, Verified 02/26/25 10:19) Unknown ciprofloxacin (Cipro) Allergy (Unknown, Verified 02/26/25 10:19) unknown latex Allergy (Unknown, Verified 02/26/25 10:19) Unknown moxifloxacin (From Avelox) Allergy (Unknown, Verified 02/26/25 10:19) Unknown prochlorperazine (From Compazine) Allergy (Unknown, Verified 02/26/25 10:19) Unknown alendronate sodium Adverse Reaction (Intermediate, Verified 02/26/25 10:19) Stomach Upset amlodipine Adverse Reaction (Uncoded 02/26/25 10:19) Abdominal Pain Medication List - Last Reconciled 02/26/25 by Jeanne Killian MD atorvastatin 40 mg PO DAILY cholecalciferol (vitamin D3) (Vitamin D3) 25 mcg PO DAILY fluticasone furoate-vilanterol 200-25 mcg/dose (Breo Ellipta) 1 inh inhalation DAILY 30 days furosemide 20 mg PO DAILY lisinopril 10 mg (1/2 x 20 mg) PO DAILY multivitamin 1 tab PO DAILY omeprazole 40 mg PO DAILY@0630 propranolol 20 mg PO BID sertraline 50 mg PO DAILY spironolactone 25 mg (1/2 x 50 mg) PO DAILY HPI AWV HPI Details Initiated the conversation about Advanced Directives. Advanced Directives help? patients prepare for current and future decisions about their medical treatment? and place of care. Discussed with patient that it is a process where a patients? current condition and prognosis are reviewed, their wishes for information? regarding their illness are elicited, and likely medical dilemmas are presented? and options discussed. The form can be amended as needed, reviewed yearly and? make changes as needed IPPE/AWV ? year old presents? for her ? Annual? Wellness Visit, initial visit.? Medical / Social History Reviewed? Past Medical History ?Yes? . ? [place]? of Care / Care Team list updated ?Yes . ? Surgical/Hospitalization? History ?Yes . ? Current Medications? (including OTC and supplements) ?Yes . ? Family History ?Yes? . ? Tobacco? Control form ?Yes . ? AUDIT-C (Alcohol use) form? ?Yes . ? Illicit drug use in Social? History ?Yes . ? Current diagnosis of? depression? ?No ? Appropriate PHQ2/PHQ9? completed ?Yes . ? Data entered by ?Medical? Pharmacy Care Coordinator and reviewed by provider ? Fall Risk ? Fall? History? Have you had any falls with? injury in the past year? ?No . ? Have you had two or more? falls in the past year? ?No . ? Fall Risk Assessment: ?No? falls in the past year . ? HRA filled out by? the patient, reviewed by Provider and scanned. ? IPPE/AWV ? Balance? [place]berg? ?Yes . ? Tandem? walk ?Yes . ? Walk and? Turn ?Yes . ? Rise from? sit to stand ?Yes . ?Vision? Corrective? lens ?Yes ? Vision? screen ? Up-to-date, has an appointment [] for vision? screening and glaucoma screening ?Hearing? Whisper? test ?pass .? Initiated the conversation about Advanced Directives. Advanced Directives help? patients prepare for current and future decisions about their medical treatment? and place of care. Discussed with patient that it is a process where a patients? current condition and prognosis are reviewed, their wishes for information? regarding their illness are elicited, and likely medical dilemmas are presented? and options discussed. The form can be amended as needed, reviewed yearly and? make changes as needed Written? Plan?Completed. See Patient? Documents. [facility] Medical History (Updated 02/26/25 @ 20:19 by Jeanne Killian MD) Hearing loss (HFpEF) heart failure with preserved ejection fraction Cirrhosis Bladder carcinoma Osteoporosis Annual physical exam Restrictive lung disease Pulmonary nodule Allergic rhinitis Atypical ductal hyperplasia of breast COPD (chronic obstructive pulmonary disease) Thrombocytopenia Aortic valve sclerosis Breast CA Depression Essential hypertension Portal hypertension Surgical History H/O colonoscopy History of esophagogastroduodenoscopy (EGD) History of surgery History of inguinal hernia repair Hx of cholecystectomy Family History Father No problems noted. Mother Colon cancer Sister Breast cancer Social History Household Members: None Household Members Other:: lives alone Housing: House Do you presently have visiting nurse or other home services: No Alcohol intake: current Alcohol intake frequency: holidays/special occasions only Patient Tobacco Use Status: Never used Tobacco e-Cigarette/Vaping Use: Never Used Second Hand Smoke Exposure: No service: No Current occupational status: retired Cognitive needs: No Hearing needs: No Vision needs: Yes Questionnaire Medicare Wellness Checkup [age] What gender do you identify with?: female During the past 4 weeks, how much have you been bothered by emotional problems such as feeling anxious, depressed, irritable, sad or downhearted, and blue?: slightly During the past 4 weeks, has your physical & emotional health limited your social activities with family, friends, neighbors, or groups?: not at all During the past 4 weeks, how much bodily pain have you generally had?: very mild pain During the past 4 weeks, was someone available to help you if you needed & wanted help?: no, not at all During the past 4 weeks, what was the hardest physical activity you could do for at least 2 minutes?: moderate Can you get to places out of walking distance without help? (For eg., can you travel alone on buses, taxis or drive your car?): Yes Can you go shopping for groceries or clothes without someone's help?: Yes Can you prepare your own meals?: Yes Can you do your housework without help?: Yes Because of any health problems, do you need the help of another person with your personal care needs such as eating, bathing, dressing or getting around the house?: No Can you handle your own money without help?: Yes During the past 4 weeks, how would you rate your health in general?: very good During the past 4 weeks how have things been going for you?: pretty well Are you having difficulties driving your car?: no Do you always fasten your seat belt when you are in a car?: yes, usually During past 4 weeks, have you been bothered by the following: never: Sexual problems?, Teeth or denture problems? and Problems using the telephone?, seldom: Trouble eating well? and sometimes: Falling or dizzy when standing up and Tiredness or fatigue? Have you fallen 2 or more times in the past year?: No Are you afraid of falling?: No Are you a smoker?: no During the past 4 weeks, how many drinks of wine, beer, or other alcoholic beverages did you have?: no alcohol at all Do you exercise for about 20 minutes 3 or more times a week?: yes, most of the time Have you been given information to help with the following?: yes: Keeping track of your medications? and no: Hazards in your house that might hurt you? How often do you have trouble taking medicines the way you have been told to take them?: I always take medicine as prescribed How confident are you that you can control & manage most of your health problems?: very confident What is your race?: White Mini Mental State Exam (MMSE) Orientation What is the (year) (season) (date) (day) (month)?: year, season, date, day and month Where are we (state) (county) (town or city) (hospital) (floor)?: state, county, town or city, hospital/clinic and floor Registration Name of 3 unrelated objects clearly and slowly, then ask patient to repeat all 3 of them. (1st repeat determines score. Make sure they can repeat all three): object 1, object 2 and object 3 Attention & Calculation (CHOOSE ONE) Spell WORLD backwards (DLROW): 5 letters Recall Ask patient to repeat the 3 items from question #3.: object 1, object 2 and object 3 Language Show patient a wristwatch & ask what it is. Repeat for pencil.: watch and pencil Ask the patient to repeat the phrase 'No ifs, ands, or buts' after you.: correct Ask the patient to 'take a piece of paper with their right hand' 'fold paper in half' 'place paper on floor': take paper in right hand, fold paper in half and place paper on floor Print the sentence 'CLOSE YOUR EYES' on a piece. If patient actually closes eyes then score.: followed written direction Give patient a blank piece of paper & ask to write a sentence. Score if it contains a noun & verb.: sentence contains subject and verb Score Score: 29 PHQ-9 Over the last 2 weeks, how often have you been bothered by any of the following problems? 1. Little interest or pleasure in doing things: not at all 2. Feeling down, depressed, or hopeless: not at all 3. Trouble falling or staying asleep, or sleeping too much: not at all 4. Feeling tired or having little energy: not at all 5. Poor appetite or overeating: not at all 6. Feeling bad about yourself - or that you are a failure or have let yourself or your family down: not at all 7. Trouble concentrating on things, such as reading the newspaper or watching television: not at all 8. Moving or speaking so slowly that other people could have noticed. Or the opposite - being so fidgety or restless that you have been moving around a lot more than usual: not at all 9. Thoughts that you would be better off or of hurting yourself in some way: not at all Total score: 0 Depression Screening Interpretation: Negative Depression Screening Done: Yes Source: Developed by Drs. Alber Mcelroy, Rula Pantoja, Ranulfo Kirkpatrick and colleagues, with an educational laly from [employer]. Review of Systems Const All systems reviewed & are unremarkable except as noted in HPI and below Eyes Reports no additional complaints ENT Reports no additional complaints Card Reports no additional complaints Resp Reports no additional complaints GI Reports no additional complaints Reports no additional complaints Physical Exam Vital Signs: Last Vital Signs Temp 98.3 F 02/26/25 10:07 Pulse 62 02/26/25 10:07 Resp 16 02/26/25 10:07 BP 140/74 H 02/26/25 10:07 Pulse Ox 95 02/26/25 10:07 Oxygen Delivery Method Room Air 02/26/25 10:07 BMI result Body Mass Index 28.2 Const General: no acute distress HEENT Head: Yes normal to inspection Ears: TM's normal bilaterally Neck Neck: Yes no lymphadenopathy and Yes supple Resp Effort & Inspection: normal respiratory effort Auscultation: clear to auscultation bilaterally Cardio Rhythm: regular rhythm Heart sounds: S1 normal heart sound present and S2 normal heart sound present GI Inspection: Yes normal to inspection Palpation (GI): Soft to palpation Percussion: Yes normal to percussion Auscultation: normal bowel sounds Extrem General: Yes no clubbing, cyanosis or edema Assessment & Plan Assessment & Plan (1) (HFpEF) heart failure with preserved ejection fraction: Comment: Echo 06/2024 EF 69%. Mild septal asymmetric hypertrophy, [id number] aortic stenosis, cardiac catheterization not significant coronary artery disease 06/2024 Code(s): I50.30 - Unspecified diastolic (congestive) heart failure Plan: Continue current medications, patient will have repeat echo next year (2) Essential hypertension: Code(s): I10 - Essential (primary) hypertension Plan: Increase lisinopril to 20 mg a day. 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 Fisher Code(s): K76.6 - Portal hypertension Plan: Continue propranolol, follow-up with GI (5) CKD stage 3a, GFR 45-59 ml/min: Code(s): N18.31 - Chronic kidney disease, stage 3a Plan: Monitor renal function avoid nephrotoxins (6) Osteoporosis: Comment: DEXA 07/03, T SCORE -3.8 hip, took Fosamax for 5 years but stopped > 5 years, Fosamax caused stomach upset ,1st Reclast inf 05/07, pt will take Prolia for 2 yrs 04/2024, Code(s): M81.0 - Age-related osteoporosis without current pathological fracture Plan: Continue vitamin-D supplement and weight-bearing exercises Patient is overdue for Prolia injection as script sent to the pharmacy. Orders: Orders Reticulocyte Count Today D69.6 - Thrombocytopenia, unspecified, I10 - Essential (primary) hypertension, I50.30 - Unspecified diastolic (congestive) heart failure, K76.6 - Portal hypertension, N18.31 - Chronic kidney disease, stage 3a Vitamin D 25-OH Total Today E53.8 - Deficiency of other specified B group vitamins Vitamin B1 Today E53.8 - Deficiency of other specified B group vitamins Comprehensive [place]. Panel Fast Today D69.6 - Thrombocytopenia, unspecified, I10 - Essential (primary) hypertension, I50.30 - Unspecified diastolic (congestive) heart failure, K76.6 - Portal hypertension, N18.31 - Chronic kidney disease, stage 3a Complete Blood Count Auto Diff Today D69.6 - Thrombocytopenia, unspecified, I10 - Essential (primary) hypertension, I50.30 - Unspecified diastolic (congestive) heart failure, K76.6 - Portal hypertension, N18.31 - Chronic kidney disease, stage 3a Lipid Panel Today D69.6 - Thrombocytopenia, unspecified, I10 - Essential (primary) hypertension, I50.30 - Unspecified diastolic (congestive) heart failure, K76.6 - Portal hypertension, N18.31 - Chronic kidney disease, stage 3a IRON PROFILE Today D69.6 - Thrombocytopenia, unspecified, I10 - Essential (primary) hypertension, I50.30 - Unspecified diastolic (congestive) heart failure, K76.6 - Portal hypertension, N18.31 - Chronic kidney disease, stage 3a Basic Metabolic Panel 2 Weeks I10 - Essential (primary) hypertension Vitamin B12 and Folate Today E53.8 - Deficiency of other specified B group vitamins Medications: New Prolia (denosumab) 60 mg subcut [id number] 1 mL 0RF NS Changed From lisinopril 10 mg (1/2 x 20 mg) PO DAILY 45 tabs 1RF To lisinopril 20 mg PO DAILY 90 tabs 3RF Quality Reporting (2019) Depression/Bipolar (159/160/161/177) PHQ-9: Total score: 0 Coding Level of Care Code Medicare Subsequent (G0439) Diagnoses (HFpEF) heart failure with preserved ejection fraction I50.30 Essential hypertension I10 Thrombocytopenia D69.6 Portal hypertension K76.6 CKD stage 3a, GFR 45-59 ml/min N18.31 Osteoporosis M81.0 CPT Codes Advance Care Planning - Advance Care Planning discussion: On file, no changes ([id number]) Advance Care Planning - Time spent: 1-15 minutes, on File ([id number]) Advance Care Planning Advance Care Planning discussion: On file, no changes Forms completed: Health Care Proxy Time spent: 1-15 minutes, on File
--- OUTSIDE RECORDS SUMMARY | 2025-02-26 12:05 | XMS_ITS | Encounter Summary ---
Author Organization [facility] Address [address] [place] [address] Phone Care Team Providers Care Filtration Plant Mechanic Name Role Phone Self-Referred, Patient Unavailable Unavailab Benito [place] MD, MPH Unavailable [phone] Jeanne Killian MD Primary Care Provider Jeanne Killian MD Primary Care Provider Puma Kang MD, MPH Unavailable [phone] Eric Stevenson MD Unavailable [phone] Geri Parks MD Unavailable [phone] Encounter Details Date Type Department Care Team (Late st Contact Info) Description 01/19/2016 Procedure Pass [facility] [address] [place] [address] Social History Tobacco Use Types Packs/Day Years [...] 1:00 PM EST [facility] [address] Benito Mcconnell MD, MPH [address] [place] [address] [email or web address] documented as of this encounter Visit Diagnoses Not on filedocumented in this encounter Care Teams Filtration Plant Mechanic Relationship Specialty Start Date End Date Jeanne Killian MD [address] [place] [address] PCP - General Internal Medicine 01/20/16 Jeanne Killian MD [address] [place] [address] PCP - General Internal Medicine 01/19/16 01/19/16 Self-Referred, Patient 12/29/15 Benito Mcconnell MD, MPH [address] [place] [address] [address] [place] [address] [email or web address] Primary Oncologist Urology 12/29/15 Puma Kang MD, MPH [address] [place] [address], [address] [place] [address] [email or web address] Radiation Oncology 02/06/16 Eric Stevenson MD [address] [place] [address], [address] [place] [address] [email or web address] Urology 02/06/16 Geri Parks MD [address] [place] [address] [email or web address] Primary Oncologist Oncology 02/06/16 documented as of this encounter Additional Source Comments The information contained in this document represents components of the legal health record. It is not the complete legal health record.[facility]
--- OUTSIDE RECORDS SUMMARY | 2025-02-26 12:05 | XMS_ITS | Encounter Summary ---
Author Organization [facility] Address [address] [place] [address] Phone Care Team Providers Care Car Hopper Name Role Phone Self-Referred, Patient Unavailable Unavailab Benito Morrow MD, MPH Unavailable [phone] Jeanne Killian MD Primary Care Provider [phone] Puma Kang MD, MPH Unavailable [phone] Eric Stevenson MD Unavailable [phone] Geri Parks MD Unavailable [phone] Encounter Details Date Type Department Care Team (Late st Contact Info) Description 01/03/2020 Procedure Pass [facility] [address] [place] [address] Social History Tobacco Use Types Packs/Day Years [...] 04/04/2025 1:00 PM EST [facility] [address] [place] [address] Benito Mcconnell MD, MPH [address] [place] [address] [place] [address] [email or web address] documented as of this encounter Visit Diagnoses Not on filedocumented in this encounter Care Teams Car Hopper Relationship Specialty Start Date End Date Jeanne Killian MD [facility] [place] [address] PCP - General Internal Medicine 01/20/16 Self-Referred, Patient 12/29/15 Benito Mcconnell MD, MPH [address] [place] [address] [address] [place] [address] [email or web address] Primary Oncologist Urology 12/29/15 Puma Kang MD, MPH [address] [place] [address], [facility]1[address] [place] [address] [email or web address] Radiation Oncology 02/06/16 Eric Stevenson MD [address] [place] [address], [address] [address] [email or web address] Urology 02/06/16 Geri Parks MD [address] [place] [address] [email or web address] Primary Oncologist Oncology 02/06/16 documented as of this encounter Additional Source Comments The information contained in this document represents components of the legal health record. It is not the complete legal health record.[facility]
--- OUTSIDE RECORDS SUMMARY | 2025-02-26 12:05 | XMS_ITS | Encounter Summary ---
Author Organization [facility] Address [address] [place] [address] [place] [address] Phone Care Team Providers Care Spine Nurse Name Role Phone Self-Referred, Patient Unavailable Unavailab Benito Morrow MD, MPH Unavailable [phone] Jeanne Killian MD Primary Care Provider [phone] Puma Kang MD, MPH Unavailable [phone] Eric Stevenson MD Unavailable [phone] Geri Parks MD Unavailable [phone] Encounter Details Date Type Department Care Team (Late st Contact Info) Description 06/16/2017 Procedure Pass [facility] [address] [place] [address] Social History Tobacco Use Types Packs/Day Years [...] Description 04/04/2025 1:00 PM EST Office Visit [address] [address] Benito Mcconnell MD, MPH [address] [place] [address] [email or web address] documented as of this encounter Visit Diagnoses Not on filedocumented in this encounter Care Teams Spine Nurse Relationship Specialty Start Date End Date Jeanne Killian MD [address] [place] [address] PCP - General Internal Medicine 01/20/16 Self-Referred, Patient 12/29/15 Benito Mcconnell MD, MPH [facility] [address] [place] [address] [email or web address] Primary Oncologist Urology 12/29/15 Puma Kang MD, MPH [address] [facility], [facility] [place] [address] [email or web address] Radiation Oncology 02/06/16 Eric Stevenson MD [address] [place] [address], [address] [place] [address] [email or web address] Urology 02/06/16 Geri Parks MD [address] [place] [address] [email or web address] Primary Oncologist Oncology 02/06/16 documented as of this encounter Additional Source Comments The information contained in this document represents components of the legal health record. It is not the complete legal health record.[facility]
--- OUTSIDE RECORDS SUMMARY | 2025-02-26 12:05 | XMS_ITS | Encounter Summary ---
Author Organization [facility] Address [address] [place] [address] [place] [address] Phone Care Team Providers Care Radio Tower Technician Name Role Phone Self-Referred, Patient Unavailable Unavailab Benito Morrow MD, MPH Unavailable [phone] Jeanne Killian MD Primary Care Provider [phone] Puma Kang MD, MPH Unavailable [phone] Eric Stevenson MD Unavailable Geri Parks MD Unavailable [phone] Encounter Details Date Type Department Care Team (Late st Contact Info) Description 04/05/2024 Procedure Pass [address] [address] Social History Tobacco Use Types Packs/Day Years [...] PM EST [facility] [address] [place] [address] Benito Mcconnell MD, MPH [address] [place] [address] [place] [address] [email or web address] documented as of this encounter Visit Diagnoses Not on filedocumented in this encounter Care Teams Radio Tower Technician Relationship Specialty Start Date End Date Jeanne Killian MD [place] [address] PCP - General Internal Medicine 01/20/16 Self-Referred, Patient 12/29/15 Benito Mcconnell MD, MPH [address] [place] [address] [address] [place] [address] [email or web address] Primary Oncologist Urology 12/29/15 Puma Kang MD, MPH [address] [place] [address], [facility]- [address] [place] [address] ROSANNA@[email or web address] Radiation Oncology 02/06/16 Eric Stevenson MD [address] [place] [address], [address] [place] [address] [email or web address] Urology 02/06/16 Geri Parks MD [address] [place] [address] [email or web address] Primary Oncologist Oncology 02/06/16 documented as of this encounter Additional Source Comments The information contained in this document represents components of the legal health record. It is not the complete legal health record.[facility]
--- OUTSIDE RECORDS SUMMARY | 2025-02-26 12:05 | XMS_ITS | Encounter Summary ---
Author Organization [facility] Address [address] [place] [address] [place] [address] Phone Care Team Providers Care Military Technology Manager Name Role Phone Self-Referred, Patient Unavailable Unavailab Benito Morrow MD, MPH Unavailable [phone] Jeanne Killian MD Primary Care Provider [phone] Puma Kang MD, MPH Unavailable [phone] Eric Stevenson MD Unavailable [phone] Geri Parks MD Unavailable [phone] Encounter Details Date Type Department Care Team (Late st Contact Info) Description 04/07/2023 Procedure Pass [address] [address] Social History Tobacco Use Types Packs/Day Years [...] Description 04/04/2025 1:00 PM EST [facility] [address] [place] [address] Benito Mcconnell MD, MPH [address] [place] [address] [place] [address] [email or web address] documented as of this encounter Visit Diagnoses Not on filedocumented in this encounter Care Teams Military Technology Manager Relationship Specialty Start Date End Date Jeanne Killian MD [facility] [place] [place] [address] PCP - General Internal Medicine 01/20/16 Self-Referred, Patient 12/29/15 Benito Mcconnell MD, MPH [address] [place] [address] 11[address] [place] [address] [email or web address] Primary Oncologist Urology 12/29/15 Puma Kang MD, MPH [address] [place] [address], [facility]- [address] [place] [address] ROSANNA@[email or web address] Radiation Oncology 02/06/16 Eric Stevenosn MD [address] [place] [address], [address] [place] [address] [email or web address] Urology 02/06/16 Geri Parks MD [address] [place] [address] [email or web address] Primary Oncologist Oncology 02/06/16 documented as of this encounter Additional Source Comments The information contained in this document represents components of the legal health record. It is not the complete legal health record.[facility]
--- OUTSIDE RECORDS SUMMARY | 2025-02-26 12:05 | XMS_ITS | Encounter Summary ---
Author Organization [facility] Address [address] [place] [address] Care Team Providers Care Devil Dog Name Role Phone Enedelia Rdz MD Primary Care Provider + Encounter Details Date Type Department Care Team (Late st Contact Info) Description 06/25/2024 Lab Requisition [facility] - Main Lab [address] [facility] [place] [address] Enedelia Rdz MD [address] [address] Chronic kidney disease, unspecified; Gastro-esophageal reflux disease [...] mmol/L LAB CHEMISTRY METHOD 06/25/2024 3:[address] [facility] Potassium 3.9 3.5 - 5.5 mmol/L LAB CHEMISTRY METHOD 06/25/2024 3:[address] [facility] Chloride 107 96 - 110 mmol/L LAB CHEMISTRY METHOD 06/25/2024 3:[address] [facility] CO2 27 21 - 32 mmol/L LAB CHEMISTRY METHOD 06/25/2024 3:[address] [facility] Anion Gap 6 3 - 11 LAB CHEMISTRY METHOD 06/25/2024 3:[address] [facility] Glucose 60(L) 70 - 100 mg/dL LAB CHEMISTRY METHOD 06/25/2024 3:[address] [facility] BUN 25 5 - 25 mg/dL LAB CHEMISTRY METHOD 06/25/2024 3:[address] [facility] Creatinine 0.74 0.50 - 1.10 mg/dL LAB CHEMISTRY METHOD 06/25/2024 3:[address] [facility] eGFR 84 >=60 mL/min/1. 73m2 LAB CHEMISTRY METHOD 06/25/2024 3:[address] [facility] Comment:Calculation based on the Chronic Kidney Disease Epidemiology Collaboration (CKD-EPI) equation refit without adjustment for race. BUN/Creatinine Ratio 33.8 LAB CHEMISTRY METHOD 06/25/2024 3:[address] [facility] Calcium 8.8 8.5 - 10.5 mg/dL LAB CHEMISTRY METHOD 06/25/2024 3:[address] [facility] Blood Venous blood specimen / Unknown Venipuncture / Unknown 06/25/2024 7:57 AM EDT 06/25/2024 11:58 AM EDT us Enedelia Rdz MD LAB BLOOD ORDERABLES Fin al Result [facility] [address] [place] [address], * (ABNORMAL) Complete blood count (06/25/2024 7:57 AM EDT) WBC 11.3(H) 4.8 - 10.8 K/mcL LAB HEMETOLOGY METHOD 06/25/2024 12:56 PM EDT [facility] RBC 3.20(L) 3.80 - 4.80 M/mcL LAB HEMETOLOGY METHOD 06/25/2024 12:56 PM EDT [facility] Hemoglobin 9.9(L) 11.5 - 16.0 g/dL LAB HEMETOLOGY METHOD 06/25/2024 12:56 PM EDT [facility] Hematocrit 30.7(L) 35.0 - 47.0 % LAB HEMETOLOGY METHOD 06/25/2024 12:56 PM EDT [facility] MCV 95.0 79.0 - 98.0 FL LAB HEMETOLOGY METHOD 06/25/2024 12:56 PM EDT [facility] MCH 30.7 27.0 - 32.0 pcg LAB HEMETOLOGY METHOD 06/25/2024 12:56 PM EDT [facility] MCHC 32.2 32.0 - 37.0 g/dL LAB HEMETOLOGY METHOD 06/25/2024 12:56 PM EDT [facility] RDW 14.1 11.0 - 15.0 % LAB HEMETOLOGY METHOD 06/25/2024 12:56 PM EDT [facility] Platelets 209 130 - 400 K/mcL LAB HEMETOLOGY METHOD 06/25/2024 12:56 PM EDT [facility] MPV 10.4 7.0 - 11.0 FL LAB HEMETOLOGY METHOD 06/25/2024 12:56 PM EDT [facility] NRBC 0.0 <1.0 % LAB HEMETOLOGY METHOD 06/25/2024 12:56 PM EDT [facility] NRBC Absolute 0.00 <0.10 K/mcL LAB HEMETOLOGY METHOD 06/25/2024 12:56 PM EDT [facility] Blood Venous blood specimen / Unknown Venipuncture / Unknown 06/25/2024 7:57 AM EDT 06/25/2024 11:58 AM EDT us Enedelia Rdz MD LAB BLOOD ORDERABLES Fin al Result [facility] [address] [place] [address], documented in this encounter Visit Diagnoses Diagnosis Chronic kidney disease, unspecified Gastro-esophageal reflux disease without esophagitis Essential (primary) hypertension Unspecified essential hypertension Thrombocytopenia, unspecified (CMS/HCC V24) Thrombocytopenia, unspecified documented in this encounter Care Teams Devil Dog Relationship Specialty Start Date End Date Enedelia Rdz MD PCP - General Family Medicine 06/22/24 documented as of this encounter
--- OUTSIDE RECORDS SUMMARY | 2025-02-26 12:05 | XMS_ITS | Encounter Summary ---
Author Organization [facility] Address [address] [place] [address] [place] [address] Phone Care Team Providers Care Triple Air Valve Tester Name Role Phone Self-Referred, Patient Unavailable Unavailab Benito Morrow MD, MPH Unavailable [phone] Jeanne Killian MD Primary Care Provider [phone] Puma Kang MD, MPH Unavailable [phone] Eric Stevenson MD Unavailable [phone] Geri Parks MD Unavailable [phone] Encounter Details Date Type Department Care Team (Late st Contact Info) Description 06/16/2017 Procedure Pass [facility] Radiology [address] [place] [address] Social History Tobacco Use Types Packs/Day Years [...] Description 04/04/2025 1:00 PM EST Office Visit [address] [address] Benito Mcconnell MD, MPH [address] [place] [address] [email or web address] documented as of this encounter Visit Diagnoses Not on filedocumented in this encounter Care Teams Triple Air Valve Tester Relationship Specialty Start Date End Date Jeanne Killian MD [address] [place] [address] PCP - General Internal Medicine 01/20/16 Self-Referred, Patient 12/29/15 Benito Mcconnell MD, MPH 45 [facility] 11[address] [place] [address] [email or web address] Primary Oncologist Urology 12/29/15 Puma Kang MD, MPH 75 [facility], [facility]- L2 [place] [address] ROSANNA@[email or web address] Radiation Oncology 02/06/16 Eric Stevenson MD [address] [place] [address], [address] [place] [address] [email or web address] Urology 02/06/16 Geri Parks MD [address] [place] [address] [email or web address] Primary Oncologist Oncology 02/06/16 documented as of this encounter Additional Source Comments The information contained in this document represents components of the legal health record. It is not the complete legal health record.[facility]
--- OUTSIDE RECORDS SUMMARY | 2025-02-26 12:05 | XMS_ITS | Clinical Summary ---
Author Organization [facility] Address [address] [place] [address] Phone Care Team Providers Care Operating Room Coordinator Name Role Phone Self-Referred, Patient Unavailable Unavailab Benito Morrow MD, MPH Unavailable [phone] Jeanne Killian MD Primary Care Provider [phone] Puma Kang MD, MPH Unavailable [phone] Eric Stevenson MD Unavailable [phone] Geri Parks MD Unavailable [phone] Allergies Active Allergy Reactions Criticality Noted Date [...] Description 04/04/2025 1:00 PM EST [facility] [address] [place] [address] Benito Mcconnell MD, MPH [address] [place] [address] [email or web address] Health Maintenance Due Date Last Done Comments [...] CRE POC 1.2 0.5 - 1.2 mg/dL [facility] EGFR POC 47(L) >59 mL/min/1.[address] [facility] Comment:Estimated glomerular filtration rate calculated using the CKD-EPI refit equation. 10/03/2024 1:02 PM EDT 10/03/2024 1:06 PM EDT us Benito Mcconnell MD, MPH POINT OF CARE TEST ORDERA BLES Final Result Performing Organization Address City/[facility] Co de Phone Number [facility] [address] [place] [address] * (ABNORMAL) Basic metabolic panel (01/18/2020 10:12 AM EST) SODIUM 139 136 - 145 mmol/L [facility] POTASSIUM 4.4 3.4 - 5.1 mmol/L [facility] CHLORIDE 104 98 - 107 mmol/L [facility] CO2 28 22 - 31 mmol/L [facility] BUN 24(H) 6 - 23 mg/dL [facility] Comment:VERIFIED CREATININE 1.06 0.50 - 1.20 mg/dL [facility] GLUCOSE 101(H) 70 - 100 mg/dL [facility] CALCIUM 9.4 8.8 - 10.7 mg/dL [facility] EGFR 53(L) >59 mL/min/1.7 3m2 [facility] Comment:Estimated glomerular filtration rate calculated using the CKD-EPI equation. ANION GAP 7 7 - 17 mmol/L [facility] 01/18/2020 10:1 2 AM EST 01/18/2020 10:18 AM EST us Lilia Sellers PA-C LAB BLOOD BKR SELVIN GAONA Final Result Performing Organization Address City/[facility] Co de Phone Number [facility] [address] [place] [address] from Last 3 Months or Most Recently Relevant to Health Maintenance Insurance MEDICARE PART A & B [employer] SUPPLEMENT MEDICARE PART A & B [employer] SUPPLEMENT MEDICARE PART A & B Member Subscriber Plan / Payer ( fective 2018-Present) Name:Nayeli Fofana Member ID:[id number] Relation to Subscriber:Self Name:Nayeli Fofana Subscriber ID:[id number] Payer ID:[id number] Group ID:Not on file Type:Medicare Address: [employer] [address] [place] [phone] [employer] MEDEX SUPPLEMENT MEDICARE PART A & B [employer] MEDEX SUPPLEMENT MEDICARE PART A & B [employer] MEDEX SUPPLEMENT MEDICARE PART A & B [employer] MEDEX SUPPLEMENT MEDICARE PART A & B [employer] MEDEX SUPPLEMENT MEDICARE PART A & B [employer] MEDEX SUPPLEMENT MEDICARE PART A & B [employer] [place] MEDEX SUPPLEMENT Care Teams Operating Room Coordinator Relationship Specialty Start Date End Date Jeanne Killian MD [address] [place] [address] PCP - General Internal Medicine 01/20/16 Self-Referred, Patient 12/29/15 Benito Mcconnell MD, MPH [address] [place] [address] 11-3 [place] [address] [email or web address] Primary Oncologist Urology 12/29/15 Puma Kang MD, MPH [address] [place] [address], ASB1- [address] [place] [address] ROSANNA@[email or web address] Radiation Oncology 02/06/16 Eric Stevenson MD [address] [place] [address], [address] [place] [address] [email or web address] Urology 02/06/16 Geri Parks MD [address] [place] [address] [email or web address] Primary Oncologist Oncology 02/06/16 Additional Source Comments The information contained in this document represents components of the legal health record. It is not the complete legal health record.[facility]
--- OUTSIDE RECORDS SUMMARY | 2025-02-26 12:05 | XMS_ITS | Encounter Summary ---
Author Organization [facility] Address [address] [place] [address] Phone Care Team Providers Care Nursing Unit Clerk Name Role Phone Self-Referred, Patient Unavailable Unavailab Benito Morrow MD, MPH Unavailable [phone] Jeanne Killian MD Primary Care Provider [phone] Puma Kang MD, MPH Unavailable [phone] Eric Stevenson MD Unavailable [phone] Geri Parks MD Unavailable [phone] Encounter Details Date Type Department Care Team (Late Contact Info) Description 03/05/2016 Procedure Pass [facility] Periop 75 [place] [address] Social History Tobacco Use Types Packs/Day Years [...] 04/04/2025 1:00 PM EST Office Visit [facility] [address] [place] [address] Benito Mcconnell MD, MPH [address] [place] [address] [email or web address] documented as of this encounter Visit Diagnoses Not on filedocumented in this encounter Care Teams Nursing Unit Clerk Relationship Specialty Start Date End Date Jeanne Killian MD [address] [place] [address] PCP - General Internal Medicine 01/20/16 Self-Referred, Patient 12/29/15 Benito Mcconnell MD, MPH 45 [facility] 11-[address] [place] [address] [email or web address] Primary Oncologist Urology 12/29/15 Puma Kang MD, MPH 75 [facility], ASB1- L2 [place] [address] [email or web address]@[email or web address] Radiation Oncology 02/06/16 Eric Stevenson MD [facility], [address] [place] [address] [email or web address] Urology 02/06/16 Geri Parks MD [address] [place] [address] [email or web address] Primary Oncologist Oncology 02/06/16 documented as of this encounter Additional Source Comments The information contained in this document represents components of the legal health record. It is not the complete legal health record.[facility]
--- OUTSIDE RECORDS SUMMARY | 2025-02-26 12:05 | XMS_ITS | Encounter Summary ---
Author Organization [facility] Address [address] [place] [address] [place] [address] Phone Care Team Providers Care Survey Researcher Name Role Phone Self-Referred, Patient Unavailable Unavailab Benito Morrow MD, MPH Unavailable [phone] Jeanne Killian MD Primary Care Provider Puma Kang MD, MPH Unavailable [phone] Eric Stevenson MD Unavailable [phone] Geri Parks MD Unavailable [phone] Encounter Details Date Type Department Care Team (Late st Contact Info) Description 04/22/2017 Procedure Pass [facility] [address] [place] [address] Social History Tobacco Use Types Packs/Day Years [...] 1:00 PM EST Office Visit [facility] 20 [place] [address] Benito Mcconnell MD, MPH [address] [place] [address] BRISA@[email or web address] documented as of this encounter Visit Diagnoses Not on filedocumented in this encounter Care Teams Survey Researcher Relationship Specialty Start Date End Date Jeanne Killian MD [address] [place] [address] PCP - General Internal Medicine 01/20/16 Self-Referred, Patient 12/29/15 Benito Mcconnell MD, MPH [address] [place] [address] 11[address] [place], [place] BRISA@[email or web address] Primary Oncologist Urology 12/29/15 Puma Kang MD, MPH 75 [facility], ASB1- L2 [place] [address] [email or web address] Radiation Oncology 02/06/16 Eric Stevenson MD [address] [place] [address], [address] [place] [address] [email or web address] Urology 02/06/16 Geri Parks MD [address] [place] [address] [email or web address] Primary Oncologist Oncology 02/06/16 documented as of this encounter Additional Source Comments The information contained in this document represents components of the legal health record. It is not the complete legal health record.[facility]
--- OUTSIDE RECORDS SUMMARY | 2025-02-26 12:05 | XMS_ITS | Encounter Summary ---
Author Organization [facility] Address [address] [place] [address] [place] [address] Phone Care Team Providers Care Floor Renovator Name Role Phone Self-Referred, Patient Unavailable Unavailab Benito Morrow MD, MPH Unavailable [phone] Jeanne Killian MD Primary Care Provider [phone] Puma Kang MD, MPH Unavailable [phone] Eric Stevenson MD Unavailable [phone] Geri Parks MD Unavailable [phone] Encounter Details Date Type Department Care Team (Late st Contact Info) Description 04/27/[address] [facility] Radiology [address] [place] [address] Social History Tobacco Use Types Packs/Day Years [...] Description 04/04/2025 1:00 PM EST Office Visit [address] [address] Benito Mcconnell MD, MPH [address] [place] [address] BRISA@[email or web address] documented as of this encounter Visit Diagnoses Not on filedocumented in this encounter Care Teams Floor Renovator Relationship Specialty Start Date End Date Jeanne Killian MD [address] [place] [address] PCP - General Internal Medicine 01/20/16 Self-Referred, Patient 12/29/15 Benito Mcconnell MD, MPH [address] [facility] 11-[address] [place] [address] [email or web address] Primary Oncologist Urology 12/29/15 Puma Kang MD, MPH 75 [facility], [facility]- L[address] [place] [address] ROSANNA@[email or web address] Radiation Oncology 02/06/16 Eric Stevenson MD [address] [place] [address], [address] [place] [address] [email or web address] Urology 02/06/16 Geri Parks MD [address] [place] [address] [email or web address] Primary Oncologist Oncology 02/06/16 documented as of this encounter Additional Source Comments The information contained in this document represents components of the legal health record. It is not the complete legal health record.[facility]
--- OUTSIDE RECORDS SUMMARY | 2025-02-26 12:05 | XMS_ITS | Encounter Summary ---
Author Organization [facility] Address [address] [place] [address] Care Team Providers Care Healthcare Project Manager Name Role Phone Enedelia Rdz MD Primary Care Provider + Encounter Details Date Type Department Care Team (Late st Contact Info) Description 07/06/2024 Lab Requisition [facility] - Main Lab 299 [facility] [place] [address] Enedelia Rdz MD [address] [address] Chronic kidney disease, unspecified; Gastro-esophageal reflux disease [...] unspecified documented in this encounter Care Teams Healthcare Project Manager Relationship Specialty Start Date End Date Enedelia Rdz MD PCP - General Family Medicine 06/22/24 documented as of this encounter
--- OUTSIDE RECORDS SUMMARY | 2025-02-26 12:05 | XMS_ITS | Encounter Summary ---
Author Organization [facility] Address [address] [place] [address] Care Team Providers Care Rubber Washer Name Role Phone Enedelia Rdz MD Primary Care Provider + Encounter Details Date Type Department Care Team (Late st Contact Info) Description 06/22/2024 Lab Requisition [facility] - Main Lab 299 [facility] [employer] [place] [address] Enedelia Rdz MD [address] [address] Chronic kidney disease, unspecified; Essential [...] (ABNORMAL) Magnesium (06/22/2024 6:36 AM EDT) [facility] Magnesium 1.5(L) 1.9 - 2.6 mg/dL LAB CHEMISTRY METHOD 06/22/2024 9:32 AM EDT [facility] Blood Venous blood specimen / Unknown Venipuncture / Unknown 06/22/2024 6:36 AM EDT 06/22/2024 8:02 AM EDT us Enedelia Rdz MD LAB BLOOD ORDERABLES Fin al Result [facility] [address] [place] [address], * (ABNORMAL) Vitamin B12 (06/22/2024 6:36 AM EDT) [facility] Vitamin B-12 1,115(H) 250 - 900 pcg/mL LAB CHEMISTRY METHOD 06/22/2024 9:55 AM EDT [facility] Blood Venous blood specimen / Unknown Venipuncture / Unknown 06/22/2024 6:36 AM EDT 06/22/2024 8:02 AM EDT Enedelia Rdz MD LAB BLOOD ORDERABLES Fin al Result [facility] [address] [place] [address], [place] [phone] * Folate (06/22/2024 6:36 AM EDT) [facility] Folate 9.5 2.8 - 17.0 ng/ml LAB CHEMISTRY METHOD 06/22/2024 9:55 AM EDT [facility] Blood Venous blood specimen / Unknown Venipuncture / Unknown 06/22/2024 6:36 AM EDT 06/22/2024 8:02 AM EDT Enedelia Rdz MD LAB BLOOD ORDERABLES Fin al Result [facility] [address] [place] [address], [place] [phone] * (ABNORMAL) Comprehensive metabolic panel (06/22/2024 6:36 AM EDT) [facility] Sodium 138 133 - 145 mmol/L [...] [facility] Comment:Calculation based on the Chronic [...] al Result [facility] [address] [place] [address], * (ABNORMAL) Complete blood count (06/22/2024 6:36 AM EDT) WBC 5.6 4.8 - 10.8 K/mcL LAB HEMETOLOGY METHOD 06/22/2024 9:02 AM [facility] RBC 2.90(L) 3.80 - 4.80 M/mcL LAB HEMETOLOGY METHOD 06/22/2024 9:02 AM [facility] Hemoglobin 9.0(L) 11.5 - 16.0 g/dL LAB HEMETOLOGY METHOD 06/22/2024 9:02 AM [facility] Hematocrit 27.1(L) 35.0 - 47.0 % LAB HEMETOLOGY METHOD 06/22/2024 9:02 AM [facility] MCV 92.2 79.0 - 98.0 FL LAB HEMETOLOGY METHOD 06/22/2024 9:02 AM [facility] MCH 30.6 27.0 - 32.0 pcg LAB HEMETOLOGY METHOD 06/22/2024 9:02 AM [facility] MCHC 33.2 32.0 - 37.0 g/dL LAB HEMETOLOGY METHOD 06/22/2024 9:02 AM [facility] RDW 13.4 11.0 [...] al Result [facility] [address] [place] [address], documented in this encounter Visit Diagnoses Diagnosis Chronic kidney disease, unspecified Essential (primary) hypertension Unspecified essential hypertension Chronic obstructive pulmonary disease, unspecified (CMS/HCC V24, CMS/HCC V28) Gastro-esophageal reflux disease without esophagitis Thrombocytopenia, unspecified (CMS/HCC V24) Thrombocytopenia, unspecified documented in this encounter Care Teams Rubber Washer Relationship Specialty Start Date End Date Enedelia Rdz MD PCP - General Family Medicine 06/22/24 documented as of this encounter
--- OUTSIDE RECORDS SUMMARY | 2025-02-26 12:05 | XMS_ITS | Encounter Summary ---
Author Organization [facility] Address [address] [place] [address] Phone Care Team Providers Care Hotel Maintenance Worker Name Role Phone Self-Referred, Patient Unavailable Unavailab Benito Morrow MD, MPH Unavailable [phone] Jeanne Killian MD Primary Care Provider Jeanne Killian MD Primary Care Provider Puma Kang MD, MPH Unavailable [phone] Eric Stevenson MD Unavailable [phone] Geri Parks MD Unavailable [phone] Encounter Details Date Type Department Care Team (Late st Contact Info) Description 01/19/2016 Procedure Pass [facility] [address] [place] [address] Social History Tobacco Use Types Packs/Day Years [...] Description 04/04/2025 1:00 PM EST [facility] [address] Benito Mcconnell MD, MPH [address] [place] [address] [email or web address] documented as of this encounter Visit Diagnoses Not on filedocumented in this encounter Care Teams Hotel Maintenance Worker Relationship Specialty Start Date End Date Jeanne Killian MD [address] [place] [address] PCP - General Internal Medicine 01/20/16 Jeanne Killian MD [address] [place] [address] PCP - General Internal Medicine 01/19/16 01/19/16 Self-Referred, Patient 12/29/15 Benito Mcconnell MD, MPH [address] [place] [address] 11[address] [place] [address] [email or web address] Primary Oncologist Urology 12/29/15 Puma Kang MD, MPH [address] [place] [address], ASB1- L2 [place] [address] [email or web address] Radiation Oncology 02/06/16 Eric Stevenson MD [address] [place] [address], [address] [place] [address] [email or web address] Urology 02/06/16 Geri Parks MD [address] [place] [address] [email or web address] Primary Oncologist Oncology 02/06/16 documented as of this encounter Additional Source Comments The information contained in this document represents components of the legal health record. It is not the complete legal health record.[facility]
--- OUTSIDE RECORDS SUMMARY | 2025-02-26 12:05 | XMS_ITS | Encounter Summary ---
Author Organization [facility] Address [address] [place] [address] [place] [address] Phone Care Team Providers Care Cna Per Diem Name Role Phone Self-Referred, Patient Unavailable Unavailab Benito Morrow MD, MPH Unavailable [phone] Jeanne Killian MD Primary Care Provider [phone] Puma Kang MD, MPH Unavailable Eric Stevenson MD Unavailable [phone] Geri Parks MD Unavailable [phone] Encounter Details Date Type Department Care Team (Late st Contact Info) Description 04/07/2023 Procedure Pass [address] [address] Social History Tobacco Use Types Packs/Day Years [...] 1:00 PM EST [facility] [address] [place] [address] Benito Mcconnell MD, MPH [address] [place] [address] [place] [address] [email or web address] documented as of this encounter Visit Diagnoses Not on filedocumented in this encounter Care Teams Cna Per Diem Relationship Specialty Start Date End Date Jeanne Killian MD [place] [address] PCP - General Internal Medicine 01/20/16 Self-Referred, Patient 12/29/15 Benito Mcconnell MD, MPH [address] [place] [address] [address] [place] [address] [email or web address] Primary Oncologist Urology 12/29/15 Puma Kang MD, MPH [address] [place] [address], [facility]1- L2 [place] [address] [email or web address] Radiation Oncology 02/06/16 Eirc Stevenson MD [address] [place] [address], [address] [place] [address] [email or web address] Urology 02/06/16 Geri Parks MD [address] [place] [address] [email or web address] Primary Oncologist Oncology 02/06/16 documented as of this encounter Additional Source Comments The information contained in this document represents components of the legal health record. It is not the complete legal health record.[facility]
--- OUTSIDE RECORDS SUMMARY | 2025-02-26 12:05 | XMS_ITS | Clinical Summary ---
Author Organization [address] Address [address] [place] [phone] Phone Care Team Providers Care Crime Scene Examiner Name Role Phone Elder, Enedelia Caldwell MD [...] 2024 2, 12/09/2020, 11/19/2019, Additional history exists Osteoporosis Screening (Bone Density Screening) 01/05/2028 01/04/2018 [...] Procedure Name Priority Date/Time Associated Diagnosis Comments [facility] DEXA AXIAL SKELETON Routine 01/04/2018 2:07 PM EDT Age-related osteoporosis without current pathological fracture from Last 3 Months or Most Recently Relevant to Health Maintenance Results * [facility] DEXA AXIAL SKELETON (01/04/2018 2:07 PM EDT) Anatomical Region Laterality Modality Mammography 01/04/2018 12:5 7 PM EDT Narrative 01/04/2018 2:[address] [facility] Diagnostic Imaging Department [address] [place] [address] Patient: JORDANBONNIEBAR Oliva D.O.B./Age/Sex: 1950 - 67 - F Unit#: [id number] Location/Status: [facility] CLI Mnemonic/Ordering Site: MAMDEXAAX/SPMAM Ordering Physician: JEANNE KILLIAN MD Jose Luis Dexa Axial Skeleton - 01/04/18 - 1 HISTORY: The patient is a 67-year-old postmenopausal [...] probability of hip fracture of 7.0%. Code 83185 Dictating Physician: PEE KILGORE MD Electronically Signed by: PEE KILGORE MD Dic Date/Time: 01/04/18 1404 Sign date/Time: 01/04/181406 Procedure Note Pee Kilgore MD - 03/02/2022 [facility] Diagnostic Imaging Department [address] [place] [address] Patient: BONNIE ZAMBRANO Hazel /Age/Sex: 1950 - 67 - F Unit#: [id number] Location/Status: SPDIMAM/REG CLI Mnemonic/[facility]ing [facility] Ordering Physician: JEANNE KILLIAN MD Jose Luis [...] density of the femurs bilaterally is 0.745 gm/qu1xcfhd is 74% of that of young normals [...] probability of hip fracture of 7.0%. Code 00711 Dictating Physician: PEE KILGORE MD Electronically Signed by: PEE KILGORE MD Dic Date/Time: 01/04/18 1404 Sign date/Time: 01/04/18 1407 us Jeanne Killian MD IMG BI PROCEDURES Final Resul t from Last 3 Months or Most Recently Relevant to Health [place] [id number] MEDICARE [facility] Care Teams Crime Scene Examiner Relationship Specialty Start Date End Date Enedelia Rdz MD PCP - General Family Medicine 06/22/24
--- OUTSIDE RECORDS SUMMARY | 2025-02-26 12:05 | XMS_ITS | Encounter Summary ---
Author Organization [facility] Address [address] [place] [address] Phone Care Team Providers Care Store Leader Name Role Phone Self-Referred, Patient Unavailable Unavailab Benito Morrow MD, MPH Unavailable [phone] Jeanne Killian MD Primary Care Provider [phone] Puma Kang MD, MPH Unavailable [phone] Eric Stevenson MD Unavailable [phone] Geri Parks MD Unavailable [phone] Reason for Referral * MRI/CAT Scan - Closed Specialty Diagnoses / Procedures Referred By Contmigel t Referred To Contact Radiology Diagnoses Malignant neoplasm of lateral wall of urinary bladder Procedures CT 3D Reconstruction Abdomen and Pelvis Benito Mcconnell MD, MPH Phone: tel: fax: mailto:[email or web address] Referral ID Status Reason Start Date Expiration Date Visits Re quested Visits Authorized [id number] Closed 10/12/2018 10/12/2019 1 1 Encounter Details Date Type Department Care Team (Late st Contact Info) Description 10/12/2018 Ancillary Orders [facility] Urology [address] [place], [place] [address] [place] [address] Benito Mcconnell MD, MPH [address] [place] [address] [email or web address] Malignant neoplasm of lateral wall [...] 04/04/2025 1:00 PM EST Office Visit [address] [address] Benito Mcconnell MD, MPH [address] [place] [address] [email or web address] documented as of this encounter [...] bladder documented in this encounter Care Teams Store Leader Relationship Specialty Start Date End Date Jeanne Killian MD [address] [place] [address] PCP - General Internal Medicine 01/20/16 Self-Referred, Patient 12/29/15 Benito Mcconnell MD, MPH [address] [place] [address] 11- [place] [address] [email or web address] Primary Oncologist Urology 12/29/15 Puma Kang MD, MPH [address] [place] [address] ASB1- L2 [place] [address] [email or web address] Radiation Oncology 02/06/16 [place] [address] [place] [address], [address] [place] [address] [email or web address] Urology 02/06/16 Geri Parks MD [address] [place] [address] [email or web address] Primary Oncologist Oncology 02/06/16 documented as of this encounter Additional Source Comments The information contained in this document represents components of the legal health record. It is not the complete legal health record.[facility]
--- OUTSIDE RECORDS SUMMARY | 2025-02-26 12:05 | XMS_ITS | Encounter Summary ---
Author Organization [facility] Address [address] [place] [address] Care Team Providers Care Graduate Student Instructor Name Role Phone Enedelia Rdz MD Primary Care Provider + Encounter Details Date Type Department Care Team (Late st Contact Info) Description 06/30/2024 Lab Requisition [facility] - Main Lab [address] [facility] [place] [address] Enedelia Rdz MD [address] [phone] Chronic kidney disease, unspecified; Gastro-esophageal reflux disease [...] mmol/L LAB CHEMISTRY METHOD 07/02/2024 3:00 PM [facility] Potassium 4.5 3.5 - 5.5 mmol/L LAB CHEMISTRY METHOD 07/02/2024 3:00 PM [facility] Chloride 109 96 - 110 mmol/L LAB CHEMISTRY METHOD 07/02/2024 3:00 PM [facility] CO2 22 21 - 32 mmol/L LAB CHEMISTRY METHOD 07/02/2024 3:00 PM [facility] Anion Gap 9 3 - 11 LAB CHEMISTRY METHOD 07/02/2024 3:00 PM [facility] Glucose 78 70 - 100 mg/dL LAB CHEMISTRY METHOD 07/02/2024 3:00 PM [facility] BUN 22 5 - 25 mg/dL LAB CHEMISTRY METHOD 07/02/2024 3:00 PM [facility] Creatinine 0.96 0.50 - 1.10 mg/dL LAB CHEMISTRY METHOD 07/02/2024 3:00 PM [facility] eGFR 62 >=60 mL/min/1. 73m2 LAB CHEMISTRY METHOD 07/02/2024 3:00 PM [facility] Comment:Calculation based on the Chronic Kidney Disease Epidemiology Collaboration (CKD-EPI) equation refit without adjustment for race. BUN/Creatinine Ratio 22.9 LAB CHEMISTRY METHOD 07/02/2024 3:00 PM [facility] Calcium 8.8 8.5 - 10.5 mg/dL LAB CHEMISTRY METHOD 07/02/2024 3:00 PM [facility] Blood Venous blood specimen / Unknown Venipuncture / Unknown 07/02/2024 8:30 AM EDT 07/02/2024 11:09 AM EDT Enedelia Rdz MD LAB BLOOD ORDERABLES Fin al Result [facility] [address] [place] [address], * (ABNORMAL) Complete blood count (07/02/2024 8:30 AM EDT) [facility] Signature WBC 5.5 4.8 - 10.8 K/mcL LAB HEMETOLOGY METHOD 07/02/2024 11:38 AM EDT [facility] RBC 3.20(L) 3.80 - 4.80 M/mcL LAB HEMETOLOGY METHOD 07/02/2024 11:38 AM EDT [facility] Hemoglobin 10.1(L) 11.5 - 16.0 g/dL LAB HEMETOLOGY METHOD 07/02/2024 11:38 AM T [facility] Hematocrit 30.6(L) 35.0 - 47.0 % LAB HEMETOLOGY METHOD 07/02/2024 11:38 AM EDT [facility] MCV 96.5 79.0 - 98.0 FL LAB HEMETOLOGY METHOD 07/02/2024 11:38 AM [facility] MCH 31.9 27.0 - 32.0 pcg LAB HEMETOLOGY METHOD 07/02/2024 11:38 AM [facility] MCHC 33.0 32.0 - 37.0 g/dL LAB HEMETOLOGY METHOD 07/02/2024 11:38 AM T [facility] RDW 15.5(H) 11.0 - 15.0 % LAB HEMETOLOGY METHOD 07/02/2024 11:[facility] Platelets 150 130 - 400 K/mcL LAB HEMETOLOGY METHOD 07/02/2024 11:38 AM [facility] MPV 10.8 7.0 - [...] al Result [facility] [address] [place] [address], documented in this encounter Visit Diagnoses Diagnosis Chronic kidney disease, unspecified Gastro-esophageal reflux disease without esophagitis Essential (primary) hypertension Unspecified essential hypertension Thrombocytopenia, unspecified (CMS/HCC V24) Thrombocytopenia, unspecified documented in this encounter Care Teams Graduate Student Instructor Relationship Specialty Start Date End Date Enedelia Rdz MD PCP - General Family Medicine 06/22/24 documented as of this encounter
--- OUTSIDE RECORDS SUMMARY | 2025-02-26 12:05 | XMS_ITS | Encounter Summary ---
Author Organization [facility] Address [address] [place] [address] Phone Care Team Providers Care Teen Counselor Name Role Phone Self-Referred, Patient Unavailable Unavailab le Benito Mcconnell MD, MPH Unavailable [phone] Jeanne Killian MD Primary Care Provider [phone] Puma Kang MD, MPH Unavailable [phone] Eric Stevenson MD Unavailable [phone] Geri Parks MD Unavailable [phone] Reason for Referral * MRI/CAT Scan - Closed Specialty Diagnoses / Procedures Referred By Contac t Referred To Contact Procedures CT Chest Outside (No Interpretation) Benito Mcconnell MD, MPH Phone: tel: fax: mailto:[email or web address] Referral ID Status Reason Start Date Expiration Date Visits Re quested Visits Authorized [id number] Closed 04/27/2017 04/27/2018 1 1 Encounter Details Date Type Department Care Team (Late st Contact Info) Description 04/27/2017 Transcribe Orders [facility] [address] [place] [address] Mookie Barton [address] [place] [address] [email or web address] Social History Tobacco Use Types Packs/Day [...] Description 04/04/2025 1:00 PM EST Office Visit [address] [address] Benito Mcconnell MD, MPH [address] [place] [address] [email or web address] documented as of this encounter Results * CT Chest Outside (No Interpretation) (04/27/2017 12:00 AM EST) Narrative [facility] - 04/27/2017 12:25 PM EST This study is for PACS storage only and not for interpretation. us Benito Mcconnell MD, MPH IMG OUTSIDE IMAGING W/OUT INTERPRETATION Final Result [facility] documented in this encounter Visit Diagnoses Not on filedocumented in this encounter Care Teams Teen Counselor Relationship Specialty Start Date End Date Jeanne Killian MD [address] [place] [address] PCP - General Internal Medicine 01/20/16 Self-Referred, Patient 12/29/15 Benito Mcconnell MD, MPH [address] [place] [address] [email or web address] Primary Oncologist Urology 12/29/15 Puma Kang MD, MPH [address] [place] [address], ASB1- L2 [place] [address] [email or web address] Radiation Oncology 02/06/16 Eric Stevenson MD [address] [place] [address], [address] [place] [address] [email or web address] Urology 02/06/16 Geri Parks MD [address] [place] [address] [email or web address] Primary Oncologist Oncology 02/06/16 documented as of this encounter Additional Source Comments The information contained in this document represents components of the legal health record. It is not the complete legal health record.[facility]
--- OUTSIDE RECORDS SUMMARY | 2025-02-26 12:05 | XMS_ITS | Patient Health Record ---
Author Organization [employer] [facility] Address [address] [facility] [place] [address] Care Team Providers Care Triple Drum Operator Name Role Phone Jeanne Killian MD Primary Care Provider Unavaila ble Black, Tessa Unavailable [phone] Allergies Allergen (clinical drug ingredient) Drug/Non Drug [...] Problem Acquired hammer toe of right foot (1722358072631986 ) Other hammer toe(s) (acquired), right foot (M20.41) Active confirmed Problem Acquired hammer toe of left foot (8840443823277396 ) Other hammer toe(s) (acquired), left foot (M20.42) Active confirmed Problem Acquired hallux valgus (77543199) Hallux valgus (acquired), left foot (M20.12) Active confirmed Problem Acquired hallux valgus (10727161) Hallux valgus (acquired), right foot (M20.11) Active confirmed Problem Localized, primary osteoarthritis of the ankle and/or foot (937072021) Osteoarthritis of right ankle and foot (M19.071) Active confirmed Problem Localized, primary osteoarthritis of the ankle and/or foot (823111047) Osteoarthritis of left ankle and foot (M19.072) Active confirmed Plan Of Treatment No Information Insurance Providers Payer Name Payer Address Payer Phone Subscriber Number Group Number Insured Name Patient Relationship to Insured Coverage Start Date Coverage End Date Medicare National Govt Sv[employer] [address] [place] [address] [id number] Nayeli Fofana Self - patient is the insured [employer] [address] [place] [address] [id number] Nayeli Fofana Self - patient is the insured Medical (General) History Medical History History ICD Code Arthritis asthma Gall bladder problems High blood pressure Kidney disease Liver disease Osteoporosis Measles Mumps Chicken pox Transfusions Congenitive Hepatic Fibrosis Surgical History Surgery Date(Month/Year) Breast Surgery x2 1978,2020 kidney surgery 2016 gall bladder 2013 hernia
--- OUTSIDE RECORDS SUMMARY | 2025-02-26 12:05 | XMS_ITS | Encounter Summary ---
Author Organization [facility] Address [address] [place] [address] Phone Care Team Providers Care Adolescent Counselor Name Role Phone Self-Referred, Patient Unavailable Unavailab Benito Morrow MD, MPH Unavailable [phone] Jeanne Killian MD Primary Care Provider [phone] Puma Kang MD, MPH Unavailable [phone] Eric Stevenson MD Unavailable [phone] Geri Parks MD Unavailable Encounter Details Date Type Department Care Team (Late st Contact Info) Description 01/03/2020 Procedure Pass [facility] [address] [place] [address] Social History Tobacco Use Types Packs/Day Years [...] Description 04/04/2025 1:00 PM EST [facility] [address] [place] [address] Benito Mcconnell MD, MPH [address] [place] [address] [place] [address] [email or web address] documented as of this encounter Visit Diagnoses Not on filedocumented in this encounter Care Teams Adolescent Counselor Relationship Specialty Start Date End Date Jeanne Killian MD [place] [address] PCP - General Internal Medicine 01/20/16 Self-Referred, Patient 12/29/15 Benito Mcconnell MD, MPH [address] [place] [address] 11-[address] [place] [address] [email or web address] Primary Oncologist Urology 12/29/15 Puma Kang MD, MPH [address] [place] [address], [facility] [place] [address] ROSANNA@[email or web address] Radiation Oncology 02/06/16 Eric Stevenson MD [address] [place] [address], [address] [address] [email or web address] Urology 02/06/16 Geri Parks MD [address] [place] [address] [email or web address] Primary Oncologist Oncology 02/06/16 documented as of this encounter Additional Source Comments The information contained in this document represents components of the legal health record. It is not the complete legal health record.[facility]
--- OUTSIDE RECORDS SUMMARY | 2025-02-26 12:05 | XMS_ITS | Encounter Summary ---
Author Organization [facility] Address [address] [place] [address] Phone Care Team Providers Care Rounding And Backing Machine Operator Name Role Phone Self-Referred, Patient Unavailable Unavailab Benito Morrow MD, MPH Unavailable [phone] Jeanne Killian MD Primary Care Provider [phone] Puma Kang MD, MPH Unavailable [phone] Eric Stevenson MD Unavailable [phone] Geri Parks MD Unavailable Encounter Details Date Type Department Care Team (Late st Contact Info) Description 09/04/2020 Procedure Pass [facility] [address] [place] [address] Social History Tobacco Use Types Packs/Day Years [...] Description 04/04/2025 1:00 PM EST [facility] [address] [place] [address] Benito Mcconnell MD, MPH [address] [place] [address] 11[address] [place] [address] [email or web address] documented as of this encounter Visit Diagnoses Not on filedocumented in this encounter Care Teams Rounding And Backing Machine Operator Relationship Specialty Start Date End Date Jeanne Killian MD [address] [place] [address] PCP - General Internal Medicine 01/20/16 Self-Referred, Patient 12/29/15 Benito Mcconnell MD, MPH [address] [place] [address] [place] [address] [email or web address] Primary Oncologist Urology 12/29/15 Puma Kang MD, MPH [address] [place] [address], [facility]- [address] [place] [address] ROSANNA@[email or web address] Radiation Oncology 02/06/16 Eric Stevenson MD [address] [place] [address], [address] [address] [email or web address] Urology 02/06/16 Geri Parks MD [address] [place] [address] [email or web address] Primary Oncologist Oncology 02/06/16 documented as of this encounter Additional Source Comments The information contained in this document represents components of the legal health record. It is not the complete legal health record.[facility]
--- OUTSIDE RECORDS SUMMARY | 2025-02-26 12:05 | XMS_ITS | Encounter Summary ---
Author Organization [facility] Address [address] [place] [address] [place] [address] Phone Care Team Providers Care Science Analyst Name Role Phone Self-Referred, Patient Unavailable Unavailab Benito Morrow MD, MPH Unavailable [phone] Jeanne Killian MD Primary Care Provider [phone] Puma Kang MD, MPH Unavailable [phone] Eric Stevenson MD Unavailable [phone] Geri Parks MD Unavailable [phone] Encounter Details Date Type Department Care Team (Late st Contact Info) Description 06/16/2017 Procedure Pass [facility] [address] [place] [address] Social History Tobacco Use Types Packs/Day Years [...] Description 04/04/2025 1:00 PM EST Office Visit [facility] 20 [place] [address] Benito Mcconnell MD, MPH [address] [place] [address] [email or web address] documented as of this encounter Visit Diagnoses Not on filedocumented in this encounter Care Teams Science Analyst Relationship Specialty Start Date End Date Jeanne Killian MD [address] [place] [address] PCP - General Internal Medicine 01/20/16 Self-Referred, Patient 12/29/15 Benito Mcconnell MD, MPH [address] [place] [address] 11-3 [place], [place] [email or web address] Primary Oncologist Urology 12/29/15 Puma Kang MD, MPH [facility], ASB1- L2 [place] [address] ROSANNA@[email or web address] Radiation Oncology 02/06/16 Eric Stevenson MD [address] [place] [address], [address] [place] [address] [email or web address] Urology 02/06/16 Geri Parks MD [address] [place] [address] [email or web address] Primary Oncologist Oncology 02/06/16 documented as of this encounter Additional Source Comments The information contained in this document represents components of the legal health record. It is not the complete legal health record.[facility]"
--- OUTSIDE RECORDS SUMMARY | 2025-02-26 12:06 | XMS_ITS | Encounter Summary ---
Author Organization [facility] Address [address] [place] [address] [place] [address] Phone Care Team Providers Care R&D Engineer Name Role Phone Self-Referred, Patient Unavailable Unavailab Benito Morrow MD, MPH Unavailable [phone] Jeanne Killian MD Primary Care Provider [phone] Puma Kang MD, MPH Unavailable [phone] Eric Stevenson MD Unavailable [phone] Geri Parks MD Unavailable [phone] Encounter Details Date Type Department Care Team (Late st Contact Info) Description 02/18/2017 Procedure Pass [facility] [address] [place] [address] Social History Tobacco Use Types Packs/Day Years [...] Description 04/04/2025 1:00 PM EST Office Visit [address] [address] Benito Mcconnell MD, MPH [address] [place] [address] BRISA@[email or web address] documented as of this encounter Visit Diagnoses Not on filedocumented in this encounter Care Teams R&D Engineer Relationship Specialty Start Date End Date Jeanne Killian MD [address] [place] [address] PCP - General Internal Medicine 01/20/16 Self-Referred, Patient 12/29/15 Benito Mcconnell MD, MPH 45 [facility] [place] [facility] 11[address] [place] [address] [email or web address]@[facility] Primary Oncologist Urology 12/29/15 Puma Kang MD, MPH 75 [facility], [facility]- L2 [place] [address] ROSANNA@[facility] Radiation Oncology 02/06/16 Eric Stevenson MD [address] [place] [address], [address] [place] [address] [email or web address] Urology 02/06/16 Geri Parks MD [address] [place] [address] [email or web address] Primary Oncologist Oncology 02/06/16 documented as of this encounter Additional Source Comments The information contained in this document represents components of the legal health record. It is not the complete legal health record.[facility]
--- OUTSIDE RECORDS SUMMARY | 2025-02-26 12:06 | XMS_ITS | Encounter Summary ---
Author Organization [facility] Address [address] [place] [address] [place] [address] Phone Care Team Providers Care Partition Notcher Name Role Phone Self-Referred, Patient Unavailable Unavailab le Benito Mcconnell MD, MPH Unavailable [phone] Jeanne Killian MD Primary Care Provider [phone] Puma Kang MD, MPH Unavailable [phone] Eric Stevenson MD Unavailable Geri Parks MD Unavailable [phone] Reason for Referral * MRI/CAT Scan - Closed Specialty Diagnoses / Procedures Referred By Contmigel t Referred To Contact Procedures CT Abdomen Outside (No Interpretation) Benito Mcconnell MD, MPH Phone: tel: fax: mailto:[email or web address] Referral ID Status Reason Start Date Expiration Date Visits Re quested Visits Authorized [id number] Closed 02/18/2017 02/18/2018 1 1 Encounter Details Date Type Department Care Team (Late st Contact Info) Description 02/18/2017 Transcribe Orders [facility] [address] [place] [address] Jordyn Still [address] [place] [address] [email or web address] Social History Tobacco Use [...] Description 04/04/2025 1:00 PM EST Office Visit [address] [address] Benito Mcconnell MD, MPH [address] [place] [address] BRISA@[email or web address] documented as of this encounter Results * CT Abdomen Outside (No Interpretation) (02/18/2017 12:00 AM EST) Narrative [facility] - 02/18/2017 10:27 AM EST This study is for PACS storage only and not for interpretation. us Benito Mcconnell MD, MPH IMG OUTSIDE IMAGING W/OUT INTERPRETATION Final Result [facility] documented in this encounter Visit Diagnoses Not on filedocumented in this encounter Care Teams Partition Notcher Relationship Specialty Start Date End Date Jeanne Killian MD [address] [place] [address] PCP - General Internal Medicine 01/20/16 Self-Referred, Patient 12/29/15 Beniot Mcconnell MD, MPH [address] [place] [address] BRISA@[email or web address] Primary Oncologist Urology 12/29/15 Puma Kang MD, MPH [address] [place] [address], ASB1- L2 [place] [address] [email or web address] Radiation Oncology 02/06/16 Eric Stevenson MD [address] [place] [address], [address] [place] [address] [email or web address] Urology 02/06/16 Geri Parks MD [address] [place] [address] [email or web address] Primary Oncologist Oncology 02/06/16 documented as of this encounter Additional Source Comments The information contained in this document represents components of the legal health record. It is not the complete legal health record.[facility]
--- OUTSIDE RECORDS SUMMARY | 2025-02-26 12:06 | XMS_ITS | Encounter Summary ---
Author Organization [facility] Address [address] [place] [address] Phone Care Team Providers Care Womens Health Nurse Practitioner Name Role Phone Self-Referred, Patient Unavailable Unavailab Benito Morrow MD, MPH Unavailable [phone] Jeanne Killian MD Primary Care Provider [phone] Puma Kang MD, MPH Unavailable [phone] Eric Stevenson MD Unavailable [phone] Geri Parks MD Unavailable [phone] Reason for Referral * MRI/CAT Scan - Closed Specialty Diagnoses / Procedures Referred By Trever manuel Referred To Contact Radiology Diagnoses Bladder cancer Procedures CT Chest Benito Mcconnell MD, MPH Phone: tel: fax: mailto:[email or web address] Referral ID Status Reason Start Date Expiration Date Visits Re quested Visits Authorized [id number] Closed 05/09/2019 05/08/2020 1 1 Encounter Details Date Type Department Care Team ([facility] st Contact Info) Description 05/09/2019 Ancillary Orders [facility] Urology [address] [place], [place] [address]12-3 [place] [address] Benito Mcconnell MD, MPH [address] [place] [address] 11-3 [place], [place] [id number] [email or web address] Bladder cancer Social History Tobacco Use Types [...] 04/04/2025 1:00 PM EST Office Visit [address] [address] Benito Mcconnell MD, MPH [address] [place] [address] BRISA@[email or web address] documented as of this encounter Results * [...] unspecified documented in this encounter Care Teams Womens Health Nurse Practitioner Relationship Specialty Start Date End Date Jeanne Killian MD [address] [place] [address] PCP - General Internal Medicine 01/20/16 Self-Referred, Patient 12/29/15 Benito Mcconnell MD, MPH [address] [place] [address] 11-[address] [place] [address] [email or web address] Primary Oncologist Urology 12/29/15 Puma Kang MD, MPH [address] [place] [address], ASB1- L2 [place] [address] [email or web address] Radiation Oncology 02/06/16 Eric Stevenson MD [address] [place] [address], [address] [place] [address] [email or web address] Urology 02/06/16 Geri Parks MD [address] [place] [address] [email or web address] Primary Oncologist Oncology 02/06/16 documented as of this encounter Additional Source Comments The information contained in this document represents components of the legal health record. It is not the complete legal health record.[facility]
--- OUTSIDE RECORDS SUMMARY | 2025-02-26 12:06 | XMS_ITS | Encounter Summary ---
Author Organization [facility] Address [address] [place] [address] Phone Care Team Providers Care Defensive Fire Control Systems Operator Name Role Phone Self-Referred, Patient Unavailable Unavailab Benito Morrow MD, MPH Unavailable [phone] Jeanne Killian MD Primary Care Provider [phone] Puma Kang MD, MPH Unavailable [phone] Eric Stevenson MD Unavailable [phone] Geri Parks MD Unavailable [phone] Encounter Details Date Type Department Care Team (Late st Contact Info) Description 06/04/2021 Procedure Pass [facility] 20 [place] [address] Social History Tobacco Use Types Packs/Day Years [...] Description 04/04/2025 1:00 PM EST [facility] [place] [address] Benito Mcconnell MD, MPH [address] [place] [address] 11[address] [place] [address] BRISA@[email or web address] documented as of this encounter Visit Diagnoses Not on filedocumented in this encounter Care Teams Defensive Fire Control Systems Operator Relationship Specialty Start Date End Date Jeanne Killian MD [address] [place] [address] PCP - General Internal Medicine 01/20/16 Self-Referred, Patient 12/29/15 Benito Mcconnell MD, MPH [address] [place] [address] [place] [address] BRISA@[facility] Primary Oncologist Urology 12/29/15 Puma Kang MD, MPH [address] [place] [address], [facility]1- L2 [place] [address] ROSANNA@[facility] Radiation Oncology 02/06/16 Eric Stevenson MD [address] [place] [address], [address] [address] [email or web address] Urology 02/06/16 Geri Parks MD [address] [place] [address] Renea@[email or web address] Primary Oncologist Oncology 02/06/16 documented as of this encounter Additional Source Comments The information contained in this document represents components of the legal health record. It is not the complete legal health record.[facility]
--- OUTSIDE RECORDS SUMMARY | 2025-02-26 12:06 | XMS_ITS | Encounter Summary ---
Author Organization [facility] Address [address] [place] [address] Phone Care Team Providers Care Roll Finisher Name Role Phone Self-Referred, Patient Unavailable Unavailab Benito Morrow MD, MPH Unavailable [phone] Jeanne Killian MD Primary Care Provider [phone] Puma Kang MD, MPH Unavailable [phone] Eric Stevenson MD Unavailable [phone] Geri Parks MD Unavailable Encounter Details Date Type Department Care Team (Late st Contact Info) Description 09/04/2020 Procedure Pass [facility] 20 [place] [address] Social History Tobacco Use Types Packs/Day Years [...] Description 04/04/2025 1:00 PM EST [facility] [address] [place] [address] Benito Mcconnell MD, MPH [address] [place] [address] 11-3 [place] [address] BRISA@[email or web address] documented as of this encounter Visit Diagnoses Not on filedocumented in this encounter Care Teams Roll Finisher Relationship Specialty Start Date End Date Jeanne Killian MD [address] [place] [address] PCP - General Internal Medicine 01/20/16 Self-Referred, Patient 12/29/15 Benito Mcconnell MD, MPH [address] [place] [address] [place] [address] BRISA@[facility] Primary Oncologist Urology 12/29/15 Puma Kang MD, MPH [address] [place] [address], [facility]1- L2 [place] [address] ROSANNA@[facility] Radiation Oncology 02/06/16 Eric Stevenson MD [address] [place] [address], [address] [address] [email or web address] Urology 02/06/16 Geri Parks MD [address] [place] [address] Renea@[email or web address] Primary Oncologist Oncology 02/06/16 documented as of this encounter Additional Source Comments The information contained in this document represents components of the legal health record. It is not the complete legal health record.[facility]
--- OUTSIDE RECORDS SUMMARY | 2025-02-26 12:06 | XMS_ITS | Encounter Summary ---
Author Organization [facility] Address [address] [place] [address] Phone Care Team Providers Care Trench Digger Helper Name Role Phone Self-Referred, Patient Unavailable Unavailab Benito Morrow MD, MPH Unavailable [phone] Jeanne Killian MD Primary Care Provider [phone] Puma Kang MD, MPH Unavailable [phone] Eric Stevenson MD Unavailable [phone] Geir Parks MD Unavailable [phone] Encounter Details Date Type Department Care Team (Late st Contact Info) Description 06/04/2021 Procedure Pass [facility] 20 [place] [address] Social History Tobacco Use Types Packs/Day Years [...] [facility] [place] [address] Benito Mcconnell MD, MPH [address] [place] [address] 11-3 [place] [address] BRISA@[email or web address] documented as of this encounter Visit Diagnoses Not on filedocumented in this encounter Care Teams Trench Digger Helper Relationship Specialty Start Date End Date Jeanne Killian MD [address] [place] [address] PCP - General Internal Medicine 01/20/16 Self-Referred, Patient 12/29/15 Benito Mcconnell MD, MPH [address] [place] [address]3 [place] [address] BRISA@[facility] Primary Oncologist Urology 12/29/15 Puma Kang MD, MPH [address] [place] [address], [facility]- L2 [place] [address] ROSANNA@[facility] Radiation Oncology 02/06/16 Eric Stevenson MD [address] [place] [address], [address] [address] [email or web address] Urology 02/06/16 Geri Parks MD [address] [place] [address] Renea@[email or web address] Primary Oncologist Oncology 02/06/16 documented as of this encounter Additional Source Comments The information contained in this document represents components of the legal health record. It is not the complete legal health record.[facility]
== END 2025-02-26 16:22 | disposition home or self-care (01) ==
LOC: HO.HMCC 09:58
PROVIDERS: PCP Internal Medicine; Visit Provider Internal Medicine
DX: I12.9 Hypertensive chronic kidney disease with stage 1 through stage 4 chronic kidney disease, or unspecified chronic kidney disease (principal); I50.30 Unspecified diastolic (congestive) heart failure; K76.6 Portal hypertension; N18.31 Chronic kidney disease, stage 3a; D69.6 Thrombocytopenia, unspecified; M81.0 Age-related osteoporosis without current pathological fracture

== ENCOUNTER 2025-03-12 08:41 | Outpatient (REF) | payer MEDICARE, SELFPAY ==
--- OUTSIDE RECORDS SUMMARY | 2025-03-12 10:31 | XMS_ITS | Encounter Summary ---
Author Organization [facility] Address [address] [place] [address] [place] [address] Phone Care Team Providers Care Infrastructure Engineer Name Role Phone Self-Referred, Patient Unavailable Unavailab Benito Morrow MD, MPH Unavailable [phone] Jeanne Killian MD Primary Care Provider [phone] Puma Kang MD, MPH Unavailable [phone] Eric Stevenson MD Unavailable [phone] Geri Parks MD Unavailable [phone] Encounter Details Date Type Department Care Team (Late st Contact Info) Description 04/07/2023 Procedure Pass [address] [address] Social History Tobacco Use Types Packs/Day Years [...] Description 04/04/2025 1:00 PM EST Office Visit [facility] [address] [place] [address] Benito Mcconnell MD, MPH [address] [place], [place] [address] [place] [address] BRISA@[email or web address] documented as of this encounter Visit Diagnoses Not on filedocumented in this encounter Care Teams Infrastructure Engineer Relationship Specialty Start Date End Date Jeanne Killian MD [address] [place] [address] PCP - General Internal Medicine 01/20/16 Self-Referred, Patient 12/29/15 Benito Mcconnell MD, MPH [address] [place] [address] 11-3 [place] [address] BRISA@[facility] Primary Oncologist Urology 12/29/15 Puma Kang MD, MPH [address] [place] [address], [facility]1- L2 [place] [address] ROSANNA@[facility] Radiation Oncology 02/06/16 Eric Stevenson MD [address] [place] [address], [address] [place] [address] [email or web address] Urology 02/06/16 Geri Parks MD [address] [place] [address] [email or web address] Primary Oncologist Oncology 02/06/16 documented as of this encounter Additional Source Comments The information contained in this document represents components of the legal health record. It is not the complete legal health record.[facility]
--- OUTSIDE RECORDS SUMMARY | 2025-03-12 10:31 | XMS_ITS | Encounter Summary ---
Author Organization [facility] Address [address] [place] [address] [place] [address] Phone Care Team Providers Care Crime Scene Examiner Name Role Phone Self-Referred, Patient Unavailable Unavailab Benito Morrow MD, MPH Unavailable [phone] Jeanne Killian MD Primary Care Provider [phone] Puma Kang MD, MPH Unavailable [phone] Eric Stevenson MD Unavailable [phone] Geri Parks MD Unavailable [phone] Encounter Details Date Type Department Care Team (Late st Contact Info) Description 01/03/2020 Procedure Pass [facility] 20 [place] [address] Social History Tobacco Use Types Packs/Day Years [...] Description 04/04/2025 1:00 PM EST Office Visit [facility] 20 [place] [address] Benito Mcconnell MD, MPH 45 [facility] 11-3 [place] [address] BRISA@[facility] documented as of this encounter Visit Diagnoses Not on filedocumented in this encounter Care Teams Crime Scene Examiner Relationship Specialty Start Date End Date Jeanne Killian MD [address] [place] [address] PCP - General Internal Medicine 01/20/16 Self-Referred, Patient 12/29/15 Benito Mcconnell MD, MPH [address] [place] [address] 11-3 [place] [address] BRISA@[facility] Primary Oncologist Urology 12/29/15 Puma Kang MD, MPH [address] [place] [address], [facility]- L2 [place] [address] ROSANNA@[facility] Radiation Oncology 02/06/16 Eric Stevenson MD [address] [place] [address], [address] [address] [email or web address] Urology 02/06/16 Geri Parks MD [address] [place] [address] Renea@[email or web address] Primary Oncologist Oncology 02/06/16 documented as of this encounter Additional Source Comments The information contained in this document represents components of the legal health record. It is not the complete legal health record.[facility]
--- OUTSIDE RECORDS SUMMARY | 2025-03-12 10:31 | XMS_ITS | Encounter Summary ---
Author Organization [facility] Address [address] [place] [address] [place] [address] Phone Care Team Providers Care Advance Scout Name Role Phone Self-Referred, Patient Unavailable Unavailab Benito Morrow MD, MPH Unavailable [phone] Jeanne Killian MD Primary Care Provider [phone] Puma Kang MD, MPH Unavailable [phone] Eric tSevenson MD Unavailable [phone] Geri Parks MD Unavailable [phone] Encounter Details Date Type Department Care Team (Late st Contact Info) Description 04/27/2017 Procedure Pass [facility] 75 [place] [address] Social History Tobacco Use Types Packs/Day Years [...] Description 04/04/2025 1:00 PM EST Office Visit [facility] [address] [place] [address] Benito Mcconnell MD, MPH [address] [place] [address] [place] [address] BRISA@[email or web address] documented as of this encounter Visit Diagnoses Not on filedocumented in this encounter Care Teams Advance Scout Relationship Specialty Start Date End Date Jeanne Killian MD [facility] [place] [address] PCP - General Internal Medicine 01/20/16 Self-Referred, Patient 12/29/15 Benito Mcconnell MD, MPH [address] [place] [address] 11-3 [place] [address] BRISA@[facility] Primary Oncologist Urology 12/29/15 Puma Kang MD, MPH [address] [place] [address], [facility]1- L2 [place] [address] ROSANNA@[facility] Radiation Oncology 02/06/16 Eric Stevenson MD [address] [place] [address], [address] [address] [email or web address] Urology 02/06/16 Geri Parks MD [address] [place] [address] [email or web address]@[email or web address] Primary Oncologist Oncology 02/06/16 documented as of this encounter Additional Source Comments The information contained in this document represents components of the legal health record. It is not the complete legal health record.[facility]
--- OUTSIDE RECORDS SUMMARY | 2025-03-12 10:31 | XMS_ITS | Encounter Summary ---
Author Organization [facility] Address [address] [place] [address] Phone Care Team Providers Care Director Integrated Name Role Phone Self-Referred, Patient Unavailable Unavailab Benito Morrow MD, MPH Unavailable [phone] Jeanne Killian MD Primary Care Provider [phone] Puma Kang MD, MPH Unavailable [phone] Eric Stevenson MD Unavailable [phone] Geri Parks MD Unavailable [phone] Encounter Details Date Type Department Care Team (Late st Contact Info) Description 06/16/2017 Procedure Pass [facility] Radiology [address] [place] [address] Social History Tobacco Use Types Packs/Day Years [...] EST Office Visit [facility] [address] [place] [address] Benito Mcconnell MD, MPH [address] [place] [address] [email or web address] documented as of this encounter Visit Diagnoses Not on filedocumented in this encounter Care Teams Director Integrated Relationship Specialty Start Date End Date Jeanne Killian MD [address] [place] [address] PCP - General Internal Medicine 01/20/16 Self-Referred, Patient 12/29/15 Benito Mcconnell MD, MPH [address] [place] [address] 11[address] [place] [address] BRISA@[email or web address] Primary Oncologist Urology 12/29/15 Puma Kang MD, MPH [address] [place] [address], [facility]1- [address] [place] [address] ROSANNA@[facility] Radiation Oncology 02/06/16 Eric Stevenson MD [address] [place] [address], [address] [address] [email or web address] Urology 02/06/16 Geri Parks MD [address] [place] [address] [email or web address] Primary Oncologist Oncology 02/06/16 documented as of this encounter Additional Source Comments The information contained in this document represents components of the legal health record. It is not the complete legal health record.[facility]
--- OUTSIDE RECORDS SUMMARY | 2025-03-12 10:31 | XMS_ITS | Encounter Summary ---
Author Organization [facility] Address [address] [place] [address] Phone Care Team Providers Care Welding Systems And Equipment Repairer Name Role Phone Self-Referred, Patient Unavailable Unavailab Benito Morrow MD, MPH Unavailable [phone] Jeanne Killian MD Primary Care Provider [phone] Puma Kang MD, MPH Unavailable [phone] Eric Stevenson MD Unavailable [phone] Geri Parks MD Unavailable [phone] Encounter Details Date Type Department Care Team (Late st Contact Info) Description 06/16/2017 Procedure Pass [facility] Radiology [address] [place] [address] Social History Tobacco Use Types Packs/Day Years [...] 04/04/2025 1:00 PM EST Office Visit [facility] [address] [place] [address] Benito Mcconnell MD, MPH [address] [place] [address] [place] [address] BRISA@[email or web address] documented as of this encounter Visit Diagnoses Not on filedocumented in this encounter Care Teams Welding Systems And Equipment Repairer Relationship Specialty Start Date End Date Jeanne Killian MD [facility] [place] [address] PCP - General Internal Medicine 01/20/16 Self-Referred, Patient 12/29/15 Benito Mcconnell MD, MPH [address] [place] [address] [address] [place] [address] [email or web address] Primary Oncologist Urology 12/29/15 Puma Kang MD, MPH [address] [place] [address], [facility]1- L[address] [place] [address] ROSANNA@[facility] Radiation Oncology 02/06/16 Eric Stevenson MD [address] [place] [address], [address] [address] [email or web address] Urology 02/06/16 Geri Parks MD [address] [place] [address] [email or web address]@[email or web address] Primary Oncologist Oncology 02/06/16 documented as of this encounter Additional Source Comments The information contained in this document represents components of the legal health record. It is not the complete legal health record.[facility]
--- OUTSIDE RECORDS SUMMARY | 2025-03-12 10:31 | XMS_ITS | Encounter Summary ---
Author Organization [facility] Address [address] [place] [address] [place] [address] Phone Care Team Providers Care Survey Manager Name Role Phone Self-Referred, Patient Unavailable Unavailab Benito Morrow MD, MPH Unavailable [phone] Jeanne Killian MD Primary Care Provider [phone] Puma Kang MD, MPH Unavailable [phone] Eric Stevenson MD Unavailable [phone] Geri Parks MD Unavailable [phone] Encounter Details Date Type Department Care Team (Late st Contact Info) Description 04/07/2023 Procedure Pass [address] [address] Social History Tobacco Use Types Packs/Day Years [...] Description 04/04/2025 1:00 PM EST Office Visit [facility] [address] [place] [address] Benito Mcconnell MD, MPH [address] [place], [place] [address] [place] [address] BRISA@[email or web address] documented as of this encounter Visit Diagnoses Not on filedocumented in this encounter Care Teams Survey Manager Relationship Specialty Start Date End Date Jeanne Killian MD [address] [place] [address] PCP - General Internal Medicine 01/20/16 Self-Referred, Patient 12/29/15 Benito Mcconnell MD, MPH [address] [place] [address] [address] [place] [address] [email or web address] Primary Oncologist Urology 12/29/15 Puma Kang MD, MPH [address] [place] [address], [facility]1- [address] [place] [address] ROSANNA@[email or web address] Radiation Oncology 02/06/16 Eric Stevenson MD [address] [place] [address], [address] [place] [address] [email or web address] Urology 02/06/16 Geri Parks MD [address] [place] [address] [email or web address] Primary Oncologist Oncology 02/06/16 documented as of this encounter Additional Source Comments The information contained in this document represents components of the legal health record. It is not the complete legal health record.[facility]
--- OUTSIDE RECORDS SUMMARY | 2025-03-12 10:31 | XMS_ITS | Clinical Summary ---
Author Organization [facility] Address [address] [place] [address] Phone Care Team Providers Care Modular Set Crew Member Name Role Phone Self-Referred, Patient Unavailable Unavailab Benito Morrow MD, MPH Unavailable [phone] Jeanne Killian MD Primary Care Provider [phone] Puma Kang MD, MPH Unavailable [phone] Eric Stevenson MD Unavailable [phone] Geri Parks MD Unavailable [phone] Allergies Active Allergy Reactions Criticality Noted Date [...] Description 04/04/2025 1:00 PM EST Office Visit [facility] [address] [place] [address] Benito Mcconnell MD, MPH [address] [place] [address] [email or web address] Health Maintenance Due Date Last Done [...] CRE POC 1.2 0.5 - 1.2 mg/dL [facility] MRI SUITE EGFR POC 47(L) >59 mL/min/1.7 3m2 [facility] CT & MRI SUITE Comment:Estimated glomerular filtration rate calculated using the CKD-EPI refit equation. 10/03/2024 1:02 PM EDT 10/03/2024 1:06 PM EDT us Benito Mcconnell MD, MPH POINT OF CARE TEST ORDERA BLES Final Result Performing Organization Address [facility] [[email or web address]] Co de Phone Number [facility] CT & MRI [address] [place] [address] * (ABNORMAL) Basic metabolic panel (01/18/2020 10:12 AM EST) SODIUM 139 136 - 145 mmol/L [facility] POTASSIUM 4.4 3.4 - 5.1 mmol/L [facility] CHLORIDE 104 98 - 107 mmol/L [facility] CO2 28 22 - 31 mmol/L [facility] BUN 24(H) 6 - 23 mg/dL [facility] Comment:VERIFIED CREATININE 1.06 0.50 - 1.20 mg/dL [facility] GLUCOSE 101(H) 70 - 100 mg/dL [facility] CALCIUM 9.4 8.8 - 10.7 mg/dL [facility] EGFR 53(L) >59 mL/min/1.7 3m2 [facility] Comment:Estimated glomerular filtration rate calculated using the CKD-EPI equation. ANION GAP 7 7 - 17 mmol/L [facility] 01/18/2020 10:1 2 AM EST 01/18/2020 10:18 AM EST iLlia Sellers PA-C LAB BLOOD BKR SELVIN TINOCODINESH Final Result Performing Organization Address City/[facility] [[email or web address]] Co de Phone Number [facility] [address] [place] [address] from Last 3 Months or Most Recently Relevant to Health Maintenance Insurance MEDICARE PART A & B BLUE CROSS MEDEX SUPPLEMENT MEDICARE PART A & B Writer[employer]ly CROSS MEDEX SUPPLEMENT MEDICARE PART A & B Writer[employer] CROSS MEDEX SUPPLEMENT MEDICARE PART A & B [employer] CROSS MEDEX SUPPLEMENT MEDICARE PART A & B [employer] MEDEX SUPPLEMENT MEDICARE PART A & B [employer] MEDEX SUPPLEMENT MEDICARE PART A & B [employer] MEDEX SUPPLEMENT MEDICARE PART A & B [employer] MEDEX SUPPLEMENT MEDICARE PART A & B [employer] [place] MED[place] SUPPLEMENT Care Teams Modular Set Crew Member Relationship Specialty Start Date End Date Jeanne Killian MD [address] [place] [address] PCP - General Internal Medicine 01/20/16 Self-Referred, Patient 12/29/15 Benito Mcconnell MD, MPH [address] [place] [address] [address] [place] [address] [email or web address] Primary Oncologist Urology 12/29/15 Puma Kang MD, MPH [address] [place] [address], [facility]1- L2 [place] [address] ROSANNA@[facility] Radiation Oncology 02/06/16 Eric Stevenson MD [address] [place] [address], [address] [place] [address] [email or web address] Urology 02/06/16 Geri Parks MD [address] [place] [address] Renea@[email or web address] Primary Oncologist Oncology 02/06/16 Additional Source Comments The information contained in this document represents components of the legal health record. It is not the complete legal health record.[facility]
--- OUTSIDE RECORDS SUMMARY | 2025-03-12 10:31 | XMS_ITS | Encounter Summary ---
Author Organization [facility] Address [address] [place] [address] [place] [address] Phone Care Team Providers Care Route Service Manager Name Role Phone Self-Referred, Patient Unavailable Unavailab Benito Morrow MD, MPH Unavailable [phone] Jeanne Killian MD Primary Care Provider [phone] Puma Kang MD, MPH Unavailable [phone] Eric Stevenson MD Unavailable [phone] Geri Parks MD Unavailable [phone] Encounter Details Date Type Department Care Team (Late st Contact Info) Description 01/03/2020 Procedure Pass [facility] [address] [place] [address] Social History Tobacco Use Types Packs/Day Years [...] Description 04/04/2025 1:00 PM EST Office Visit [facility] [address] [place] [address] Benito Mcconnell MD, MPH [facility] 11[address] [place] [address] [email or web address] documented as of this encounter Visit Diagnoses Not on filedocumented in this encounter Care Teams Route Service Manager Relationship Specialty Start Date End Date Jeanne Killian MD [address] [place] [address] PCP - General Internal Medicine 01/20/16 Self-Referred, Patient 12/29/15 Benito Mcconnell MD, MPH [address] [place] [address] [address] [place] [address] BRISA@[email or web address] Primary Oncologist Urology 12/29/15 Puma Kang MD, MPH [address] [place] [address], [facility]- L2 [place] [address] ROSANNA@[email or web address] Radiation Oncology 02/06/16 Eric Stevenson MD [address] [place] [address], [address] [address] [email or web address] Urology 02/06/16 Geri Parks MD [address] [place] [address] Renea@[email or web address] Primary Oncologist Oncology 02/06/16 documented as of this encounter Additional Source Comments The information contained in this document represents components of the legal health record. It is not the complete legal health record.[facility]
--- OUTSIDE RECORDS SUMMARY | 2025-03-12 10:31 | XMS_ITS | Encounter Summary ---
Author Organization [facility] Address [address] [place] [address] Phone Care Team Providers Care Bullet Slug Casting Machine Operator Name Role Phone Self-Referred, Patient Unavailable Unavailab Benito Morrow MD, MPH Unavailable [phone] Jeanne Killian MD Primary Care Provider [phone] Jeanne Killian MD Primary Care Provider Puma Kang MD, MPH Unavailable [phone] Eric Stevenson MD Unavailable [phone] Geri Parks MD Unavailable [phone] Encounter Details Date Type Department Care Team (Late st Contact Info) Description 01/19/2016 Procedure Pass [facility] Radiology [address] [place] [address] Social History Tobacco Use Types Packs/Day Years [...] Description 04/04/2025 1:00 PM EST Office Visit [facility] [address] [place] [address] Benito Mcconnell MD, MPH [address] [place] [address] CRYSRADHA@[facility] documented as of this encounter Visit Diagnoses Not on filedocumented in this encounter Care Teams Bullet Slug Casting Machine Operator Relationship Specialty Start Date End Date Jeanne Killian MD [address] [place] [address] PCP - General Internal Medicine 01/20/16 Jeanne Killian MD [address] [place] [address] PCP - General Internal Medicine 01/19/16 01/19/16 Self-Referred, Patient 12/29/15 Benito Mcconnell MD, MPH [address] [place] [address] [address] [place] [address] [email or web address] Primary Oncologist Urology 12/29/15 Puma Kang MD, MPH [address] [place] [address], ASB1- [place] [place] [address] ROSANNA@[email or web address] Radiation Oncology 02/06/16 Eric Stevenson MD [address] [place] [address], [address] [place] [address] [email or web address] Urology 02/06/16 Geri Parks MD [address] [place] [address] Renea@[email or web address] Primary Oncologist Oncology 02/06/16 documented as of this encounter Additional Source Comments The information contained in this document represents components of the legal health record. It is not the complete legal health record.[facility]
--- OUTSIDE RECORDS SUMMARY | 2025-03-12 10:31 | XMS_ITS | Encounter Summary ---
Author Organization [facility] Address [address] [place] [address] [place] [address] Phone Care Team Providers Care Clin Nurse Name Role Phone Self-Referred, Patient Unavailable Unavailab Benito Morrow MD, MPH Unavailable [phone] Jeanne Killian MD Primary Care Provider [phone] Puma Kang MD, MPH Unavailable [phone] Eric Stevenson MD Unavailable [phone] Geri Parks MD Unavailable [phone] Encounter Details Date Type Department Care Team (Late st Contact Info) Description 04/05/2024 Procedure Pass [address] [address] Social History Tobacco Use Types Packs/Day Years [...] Description 04/04/2025 1:00 PM EST Office Visit [facility] [address] [place] [address] Benito Mcconnell MD, MPH [address] [place], [place] [address] [place] [address] BRISA@[email or web address] documented as of this encounter Visit Diagnoses Not on filedocumented in this encounter Care Teams Clin Nurse Relationship Specialty Start Date End Date Jenane Killian MD [address] [place] [address] PCP - General Internal Medicine 01/20/16 Self-Referred, Patient 12/29/15 Benito Mcconnell MD, MPH [address] [place] [address] [address] [place] [address] BRISA@[email or web address] Primary Oncologist Urology 12/29/15 Puma Kang MD, MPH [address] [place] [address], [facility]1- L2 [place] [address] ROSANNA@[facility] Radiation Oncology 02/06/16 Eric Stevenson MD [address] [place] [address], [address] [place] [address] [email or web address] Urology 02/06/16 Geri Parks MD [address] [place] [address] [email or web address] Primary Oncologist Oncology 02/06/16 documented as of this encounter Additional Source Comments The information contained in this document represents components of the legal health record. It is not the complete legal health record.[facility]
--- OUTSIDE RECORDS SUMMARY | 2025-03-12 10:31 | XMS_ITS | Encounter Summary ---
Author Organization [facility] Address [address] [place] [address] Phone Care Team Providers Care Green Prize Packer Name Role Phone Self-Referred, Patient Unavailable Unavailab Benito Morrow MD, MPH Unavailable [phone] Jeanne Killian MD Primary Care Provider [phone] Jeanne Killian MD Primary Care Provider [phone] Puma Kang MD, MPH Unavailable [phone] Eric Stevenson MD Unavailable [phone] Geri Parks MD Unavailable [phone] Encounter Details Date Type Department Care Team (Late st Contact Info) Description 01/19/2016 Procedure Pass [facility] Radiology [address] [place] [address] Social History Tobacco Use Types Packs/Day Years [...] 1:00 PM EST Office Visit [facility] [address] [place] [address] Benito Mcconnell MD, MPH [address] [place] [address] [email or web address] documented as of this encounter Visit Diagnoses Not on filedocumented in this encounter Care Teams Green Prize Packer Relationship Specialty Start Date End Date Jeanne Killian MD [address] [place] [address] PCP - General Internal Medicine 01/20/16 Jeanne Killian MD [address] [place] [address] PCP - General Internal Medicine 01/19/16 01/19/16 Self-Referred, Patient 12/29/15 Benito Mcconnell MD, MPH [address] [place] [address] [address] [place] [address] BRISA@[facility] Primary Oncologist Urology 12/29/15 Puma Kang MD, MPH [address] [place] [address], ASB1- L2 [place] [address] ROSANNA@[facility] Radiation Oncology 02/06/16 Eric Stevenson MD [address] [place] [address], [address] [place] [address] [email or web address] Urology 02/06/16 Geri Parks MD [address] [place] [address] [email or web address] Primary Oncologist Oncology 02/06/16 documented as of this encounter Additional Source Comments The information contained in this document represents components of the legal health record. It is not the complete legal health record.[facility]
--- OUTSIDE RECORDS SUMMARY | 2025-03-12 10:31 | XMS_ITS | Encounter Summary ---
Author Organization [facility] Address [address] [place] [address] Care Team Providers Care Business Support Coordinator Name Role Phone Enedelia Rdz MD Primary Care Provider + Encounter Details Date Type Department Care Team (Late st Contact Info) Description 06/22/2024 Lab Requisition [facility] - Main Lab [address] [facility] [place] [address] Enedelia Rdz MD [address] [address] Chronic kidney disease, unspecified; Essential [...] * (ABNORMAL) Magnesium (06/22/2024 6:36 AM EDT) [facility] Magnesium 1.5(L) 1.9 - 2.6 mg/dL LAB CHEMISTRY METHOD 06/22/2024 9:32 AM EDT [facility] Blood Venous blood specimen / Unknown Venipuncture / Unknown 06/22/2024 6:36 AM EDT 06/22/2024 8:02 AM EDT us Enedelia Rdz MD LAB BLOOD ORDERABLES Fin al Result [facility] [address] [place] [address], * (ABNORMAL) Vitamin B12 (06/22/2024 6:36 AM EDT) [facility] Vitamin B-12 1,115(H) 250 - 900 pcg/mL LAB CHEMISTRY METHOD 06/22/2024 9:55 AM EDT [facility] Blood Venous blood specimen / Unknown Venipuncture / Unknown 06/22/2024 6:36 AM EDT 06/22/2024 8:02 AM EDT Enedelia Rdz MD LAB BLOOD ORDERABLES Fin al Result [facility] [address] [place] [address], [place] [phone] * Folate (06/22/2024 6:36 AM EDT) [facility] Folate 9.5 2.8 - 17.0 ng/ml LAB CHEMISTRY METHOD 06/22/2024 9:55 AM EDT [facility] Blood Venous blood specimen / Unknown Venipuncture / Unknown 06/22/2024 6:36 AM EDT 06/22/2024 8:02 AM EDT Enedelia Rdz MD LAB BLOOD ORDERABLES Fin al Result [facility] [address] [place] [address], [place] [phone] * (ABNORMAL) Comprehensive metabolic panel (06/22/2024 6:36 AM EDT) [facility] Sodium 138 133 - 145 mmol/L [...] [facility] [address] [place] [address], * (ABNORMAL) Complete blood count (06/22/2024 6:36 AM EDT) WBC 5.6 4.8 - 10.8 K/mcL LAB HEMETOLOGY METHOD 06/22/2024 9:02 AM [facility] RBC 2.90(L) 3.80 - 4.80 M/mcL LAB HEMETOLOGY METHOD 06/22/2024 9:02 AM [facility] Hemoglobin 9.0(L) 11.5 - 16.0 g/dL LAB HEMETOLOGY METHOD 06/22/2024 9:02 AM [facility] Hematocrit 27.1(L) 35.0 - 47.0 % LAB HEMETOLOGY METHOD 06/22/2024 9:02 AM [facility] MCV 92.2 79.0 - 98.0 FL LAB HEMETOLOGY METHOD 06/22/2024 9:02 AM [facility] MCH 30.6 27.0 - 32.0 pcg LAB HEMETOLOGY METHOD 06/22/2024 9:02 AM [facility] MCHC 33.2 32.0 - 37.0 g/dL LAB HEMETOLOGY METHOD 06/22/2024 9:02 AM [facility] RDW 13.4 11.0 - 15.0 [...] [facility] [address] [place] [address], documented in this encounter Visit Diagnoses Diagnosis Chronic kidney disease, unspecified Essential (primary) hypertension Unspecified essential hypertension Chronic obstructive pulmonary disease, unspecified (CMS/HCC V24, CMS/HCC V28) Gastro-esophageal reflux disease without esophagitis Thrombocytopenia, unspecified (CMS/HCC V24) Thrombocytopenia, unspecified documented in this encounter Care Teams Business Support Coordinator Relationship Specialty Start Date End Date Enedelia Rdz MD PCP - General Family Medicine 06/22/24 documented as of this encounter
--- OUTSIDE RECORDS SUMMARY | 2025-03-12 10:31 | XMS_ITS | Encounter Summary ---
Author Organization [facility] Address [address] [place] [address] Phone Care Team Providers Care Analysis Reporting Developer Name Role Phone Self-Referred, Patient Unavailable Unavailab Benito Morrow MD, MPH Unavailable [phone] Jeanne Killian MD Primary Care Provider [phone] Puma Kang MD, MPH Unavailable [phone] Eric Stevenson MD Unavailable [phone] Geri Parks MD Unavailable [phone] Encounter Details Date Type Department Care Team (Late st Contact Info) Description 06/16/2017 Procedure Pass [facility] Radiology [address] [place] [address] Social History Tobacco Use Types Packs/Day Years [...] PM EST Office Visit [facility] [address] [place] [address] Benito Mcconnell MD, MPH [address] [place] [address] [place] [address] [email or web address] documented as of this encounter Visit Diagnoses Not on filedocumented in this encounter Care Teams Analysis Reporting Developer Relationship Specialty Start Date End Date Jeanne Killian MD [facility] [place] [address] PCP - General Internal Medicine 01/20/16 Self-Referred, Patient 12/29/15 Benito Mcconnell MD, MPH [address] [place] [address] [address] [place] [address] [email or web address] Primary Oncologist Urology 12/29/15 Puma Kang MD, MPH [address] [place] [address], [facility]1- [address] [place] [address] [email or web address] Radiation Oncology 02/06/16 Eric Stevenson MD [address] [place] [address], [address] [address] [email or web address] Urology 02/06/16 Geri Parks MD [address] [place] [address] [email or web address] Primary Oncologist Oncology 02/06/16 documented as of this encounter Additional Source Comments The information contained in this document represents components of the legal health record. It is not the complete legal health record.[facility]
--- OUTSIDE RECORDS SUMMARY | 2025-03-12 10:31 | XMS_ITS | Encounter Summary ---
Author Organization [facility] Address [address] [place] [address] Phone Care Team Providers Care Community Health Coordinator Name Role Phone Self-Referred, Patient Unavailable Unavailab le Benito Mcconnell MD, MPH Unavailable [phone] Jeanne Killian MD Primary Care Provider Puma Kang MD, MPH Unavailable [phone] Eric Stevenson MD Unavailable [phone] Geri Parks MD Unavailable [phone] Reason for Referral * MRI/CAT Scan - Closed Specialty Diagnoses / Procedures Referred By Contac t Referred To Contact Procedures CT Chest Outside (No Interpretation) Benito Mcconnell MD, MPH Phone: tel: fax: mailto:[email or web address] Referral ID Status Reason Start Date Expiration Date Visits Re quested Visits Authorized [id number] Closed 04/27/2017 04/27/2018 1 1 Encounter Details Date Type Department Care Team (Late st Contact Info) Description 04/27/2017 Transcribe Orders [facility] [address] [place] [address] Mookie Barton [address] [place] [address] [email or web address] Social History Tobacco Use Types Packs/Day Years [...] 04/04/2025 1:00 PM EST Office Visit [facility] [address] [place] [address] Benito Mcconnell MD, MPH [address] [place] [address] [email or web address] documented as of this encounter Results * CT Chest Outside (No Interpretation) (04/27/2017 12:00 AM EST) Narrative [facility] - 04/27/2017 12:25 PM EST This study is for PACS storage only and not for interpretation. us Benito Mcconnell MD, MPH IMG OUTSIDE IMAGING W/OUT INTERPRETATION Final Result [facility] documented in this encounter Visit Diagnoses Not on filedocumented in this encounter Care Teams Community Health Coordinator Relationship Specialty Start Date End Date Jeanne Killian MD [address] [place] [address] PCP - General Internal Medicine 01/20/16 Self-Referred, Patient 12/29/15 Benito Mcconnell MD, MPH [address] [place] [address] [email or web address] Primary Oncologist Urology 12/29/15 Puma Kang MD, MPH [address] [place] [address], ASB1- [address] [place] [address] [email or web address] Radiation Oncology 02/06/16 Eric Stevenson MD [address] [place] [address], [address] [place] [address] [email or web address] Urology 02/06/16 Geri Parks MD [address] [place] [address] [email or web address] Primary Oncologist Oncology 02/06/16 documented as of this encounter Additional Source Comments The information contained in this document represents components of the legal health record. It is not the complete legal health record.[facility]
--- OUTSIDE RECORDS SUMMARY | 2025-03-12 10:31 | XMS_ITS | Encounter Summary ---
Author Organization [facility] Address [address] [place] [address] Phone Care Team Providers Care Cashier General Name Role Phone Self-Referred, Patient Unavailable Unavailab Benito Morrow MD, MPH Unavailable [phone] Jeanne Killian MD Primary Care Provider [phone] Puma Kang MD, MPH Unavailable [phone] Eric Stevenson MD Unavailable [phone] Geri Parks MD Unavailable Encounter Details Date Type Department Care Team (Late st Contact Info) Description 04/22/2017 Procedure Pass [facility] Radiology [address] [place] [address] Social History Tobacco Use Types Packs/Day Years [...] PM EST Office Visit [facility] [address] [place] [address] Benito Mcconnell MD, MPH [address] [place] [address] [email or web address] documented as of this encounter Visit Diagnoses Not on filedocumented in this encounter Care Teams Cashier General Relationship Specialty Start Date End Date Jeanne Killian MD [address] [place] [address] PCP - General Internal Medicine 01/20/16 Self-Referred, Patient 12/29/15 Benito Mcconnell MD, MPH [address] [place] [address] [address] [place] [address] [email or web address] Primary Oncologist Urology 12/29/15 Puma Kang MD, MPH [address] [place] [address], [facility]1- L2 [place] [address] [email or web address]@[email or web address] Radiation Oncology 02/06/16 Eric Stevenson MD [address] [place] [address], [address] [address] [email or web address] Urology 02/06/16 Geri Parks MD [address] [place] [address] [email or web address] Primary Oncologist Oncology 02/06/16 documented as of this encounter Additional Source Comments The information contained in this document represents components of the legal health record. It is not the complete legal health record.[facility]
--- OUTSIDE RECORDS SUMMARY | 2025-03-12 10:31 | XMS_ITS | Encounter Summary ---
Author Organization [facility] Address [address] [place] [address] Care Team Providers Care Career Development Director Name Role Phone Enedelia Rdz MD Primary Care Provider + Encounter Details Date Type Department Care Team (Late st Contact Info) Description 07/06/2024 Lab Requisition [facility] - Main Lab [address] [facility] [place] [address] Enedelia Rdz MD [address] [address] Chronic kidney disease, unspecified; Gastro-esophageal reflux disease [...] unspecified documented in this encounter Care Teams Career Development Director Relationship Specialty Start Date End Date Enedelia Rdz MD PCP - General Family Medicine 06/22/24 documented as of this encounter
--- OUTSIDE RECORDS SUMMARY | 2025-03-12 10:31 | XMS_ITS | Clinical Summary ---
Author Organization [address] Address [address] [place] [phone] Phone Care Team Providers Care Physician Practice Market Manager Name Role Phone Elder, Enedelia Caldwell [...] Procedure Name Priority Date/Time Associated Diagnosis Comments [facility] DEXA AXIAL SKELETON Routine 01/04/2018 2:07 PM EDT Age-related osteoporosis without current pathological fracture from Last 3 Months or Most Recently Relevant to Health Maintenance Results * [facility] DEXA AXIAL SKELETON (01/04/2018 2:07 PM EDT) Anatomical Region Laterality Modality Mammography 01/04/2018 12:5 7 PM EDT Narrative 01/04/2018 2:07 PM EDT [facility] Diagnostic Imaging Department [address] [place] [address] Patient: JORDANBONNIEBAR Oliva D.O.B./Age/Sex: 1950 - 67 - F Unit#: [id number] Location/Status: [facility] CLI Mnemonic/Ordering Site: [facility]X/SPMAM Ordering Physician: JEANNE [...] probability of hip fracture of 7.0%. Code 03937 Dictating Physician: PEE KILGORE MD Electronically Signed by: PEE KILGORE MD Dic Date/Time: 01/04/18 1404 Sign date/Time: 01/04/181406 Procedure Note Pee Kilgore MD - 03/02/2022 [facility] Diagnostic Imaging Department [address] [place] [address] Patient: BONNIE ZAMBRANO Hazel /Age/Sex: 1950 - 67 - F Unit#: [id number] Location/Status: SPDIMAM/REG CLI [facility] Ordering Physician: JEANNE KILLIAN MD Jose Luis [...] density of the femurs bilaterally is 0.745 gm/ig4wsjej is 74% of that of young normals [...] probability of hip fracture of 7.0%. Code 06161 Dictating Physician: PEE KILGORE MD Electronically Signed by: PEE KILGORE MD Dic Date/Time: 01/04/18 1404 Sign date/Time: 01/04/18 1407 us Jeanne Killian MD IMG BI PROCEDURES Final Resul t from Last 3 Months or Most Recently Relevant to Health [place] [id number] [facility] Care Teams Physician Practice Market Manager Relationship Specialty Start Date End Date Enedelia Rdz MD PCP - General Family Medicine 06/22/24
--- OUTSIDE RECORDS SUMMARY | 2025-03-12 10:31 | XMS_ITS | Encounter Summary ---
Author Organization [facility] Address [address] [place] [address] Care Team Providers Care Trouble Locator Test Desk Name Role Phone Enedelia Rdz MD Primary Care Provider + Encounter Details Date Type Department Care Team (Late st Contact Info) Description 06/30/2024 Lab Requisition [facility] - Main Lab [address] [facility] [place] [address] Enedelia Rdz MD [address] [address] Chronic kidney disease, unspecified; Gastro-esophageal [...] mmol/L LAB CHEMISTRY METHOD 07/02/2024 3:00 PM [facility] Potassium 4.5 3.5 - 5.5 mmol/L LAB CHEMISTRY METHOD 07/02/2024 3:00 PM [facility] Chloride 109 96 - 110 mmol/L LAB CHEMISTRY METHOD 07/02/2024 3:00 PM [facility] CO2 22 21 - 32 mmol/L LAB CHEMISTRY METHOD 07/02/2024 3:00 PM [facility] Anion Gap 9 3 - 11 LAB CHEMISTRY METHOD 07/02/2024 3:00 PM [facility] Glucose 78 70 - 100 mg/dL LAB CHEMISTRY METHOD 07/02/2024 3:00 PM [facility] BUN 22 5 - 25 mg/dL LAB CHEMISTRY METHOD 07/02/2024 3:00 PM [facility] Creatinine 0.96 0.50 - 1.10 mg/dL LAB CHEMISTRY METHOD 07/02/2024 3:00 PM [facility] eGFR 62 >=60 mL/min/1. 73m2 LAB CHEMISTRY METHOD 07/02/2024 3:00 PM [facility] Comment:Calculation based on the Chronic Kidney Disease Epidemiology Collaboration (CKD-EPI) equation refit without adjustment for race. BUN/Creatinine Ratio 22.9 LAB CHEMISTRY METHOD 07/02/2024 3:00 PM [facility] Calcium 8.8 8.5 - 10.5 mg/dL LAB CHEMISTRY METHOD 07/02/2024 3:00 PM [facility] Blood Venous blood specimen / Unknown Venipuncture / Unknown 07/02/2024 8:30 AM EDT 07/02/2024 11:09 AM EDT Enedelia Rdz MD LAB BLOOD ORDERABLES Fin al Result [facility] [address] [place] [address], * (ABNORMAL) Complete blood count (07/02/2024 8:30 AM EDT) [facility] Signature WBC 5.5 4.8 - 10.8 K/mcL LAB HEMETOLOGY METHOD 07/02/2024 11:38 AM EDT [facility] RBC 3.20(L) 3.80 - 4.80 M/mcL LAB HEMETOLOGY METHOD 07/02/2024 11:38 AM EDT [facility] Hemoglobin 10.1(L) 11.5 - 16.0 g/dL LAB HEMETOLOGY METHOD 07/02/2024 11:38 AM T [facility] Hematocrit 30.6(L) 35.0 - 47.0 % LAB HEMETOLOGY METHOD 07/02/2024 11:38 AM EDT [facility] MCV 96.5 79.0 - 98.0 FL LAB HEMETOLOGY METHOD 07/02/2024 11:38 AM [facility] MCH 31.9 27.0 - 32.0 pcg LAB HEMETOLOGY METHOD 07/02/2024 11:38 AM [facility] MCHC 33.0 32.0 - 37.0 g/dL LAB HEMETOLOGY METHOD 07/02/2024 11:38 AM T [facility] RDW 15.5(H) 11.0 - 15.0 % LAB HEMETOLOGY METHOD 07/02/2024 11:[facility] Platelets 150 130 - 400 K/mcL LAB HEMETOLOGY METHOD 07/02/2024 11:38 AM [facility] MPV 10.8 7.0 - 11.0 [...] al Result [facility] [address] [place] [address], documented in this encounter Visit Diagnoses Diagnosis Chronic kidney disease, unspecified Gastro-esophageal reflux disease without esophagitis Essential (primary) hypertension Unspecified essential hypertension Thrombocytopenia, unspecified (CMS/HCC V24) Thrombocytopenia, unspecified documented in this encounter Care Teams Trouble Locator Test Desk Relationship Specialty Start Date End Date Enedelia Rdz MD PCP - General Family Medicine 06/22/24 documented as of this encounter
--- OUTSIDE RECORDS SUMMARY | 2025-03-12 10:32 | XMS_ITS | Encounter Summary ---
Author Organization [facility] Address [address] [place] [address] [place] [address] Phone Care Team Providers Care Senior Java Developer Name Role Phone Self-Referred, Patient Unavailable Unavailab Benito Morrow MD, MPH Unavailable [phone] Jeanne Killian MD Primary Care Provider [phone] Puma Kang MD, MPH Unavailable [phone] Eric Stevenson MD Unavailable [phone] Geri Parks MD Unavailable [phone] Reason for Referral * MRI/CAT Scan - Closed Specialty Diagnoses / Procedures Referred By Trever manuel Referred To Contact Radiology Diagnoses Bladder cancer Procedures CT Chest Benito Mcconnell MD, MPH Phone: tel: fax: mailto:[email or web address] Referral ID Status Reason Start Date Expiration Date Visits Re quested Visits Authorized [id number] Closed 05/09/2019 05/08/2020 1 1 Encounter Details Date Type Department Care Team (Late st Contact Info) Description 05/09/2019 Ancillary Orders [facility] [address] [place], [place] [address] [place] [address] Benito Mcconnell MD, MPH [address] [place] [address] [address] [place] [address] [email or web address] Bladder cancer Social History Tobacco Use Types [...] Description 04/04/2025 1:00 PM EST Office Visit [facility] [address] [place] [address] Benito Mcconnell MD, MPH [address] [place] [address] [email or web address] documented as of this encounter Results * [...] unspecified documented in this encounter Care Teams Senior Java Developer Relationship Specialty Start Date End Date Jeanne Killian MD [address] [place] [address] PCP - General Internal Medicine 01/20/16 Self-Referred, Patient 12/29/15 Benito Mcconnell MD, MPH [address] [place] [address] [address] [place] [address] [email or web address] Primary Oncologist Urology 12/29/15 Puma Kagn MD, MPH [address] [place] [address], ASB1- [address] [place] [address] [email or web address] Radiation Oncology 02/06/16 Eric Stevenson MD [address] [place] [address], [address] [place] [address] Urology 02/06/16 Geri Parks MD [address] [place] [address] [email or web address] Primary Oncologist Oncology 02/06/16 documented as of this encounter Additional Source Comments The information contained in this document represents components of the legal health record. It is not the complete legal health record.[facility]
--- OUTSIDE RECORDS SUMMARY | 2025-03-12 10:32 | XMS_ITS | Encounter Summary ---
Author Organization [facility] Address [address] [place] [address] Phone Care Team Providers Care Manager Hi Name Role Phone Self-Referred, Patient Unavailable Unavailab Benito Morrow MD, MPH Unavailable [phone] Jeanne Killian MD Primary Care Provider [phone] Puma Kang MD, MPH Unavailable [phone] Eric Stevenson MD Unavailable [phone] Geri Parks MD Unavailable [phone] Encounter Details Date Type Department Care Team (Late Contact Info) Description 03/05/2016 Procedure Pass [facility] Periop [address] [place] [address] Social History Tobacco Use Types Packs/Day Years [...] Description 04/04/2025 1:00 PM EST Office Visit [facility] [address] [place] [address] Benito Mcconnell MD, MPH [address] [place] [address] [email or web address] documented as of this encounter Visit Diagnoses Not on filedocumented in this encounter Care Teams Manager Hi Relationship Specialty Start Date End Date Jeanne Killian MD [address] [place] [address] PCP - General Internal Medicine 01/20/16 Self-Referred, Patient 12/29/15 Benito Mcconnell MD, MPH [address] [place] [address] [address] [place], [place] [email or web address] Primary Oncologist Urology 12/29/15 Puma Kang MD, MPH [address] [facility], ASB1- L2 [place] [address] ROSANNA@[email or web address] Radiation Oncology 02/06/16 Eric Stevenson MD [address] [place] [address], [address] [place] [address] [email or web address] Urology 02/06/16 Geri Parks MD [address] [place] [address] [email or web address] Primary Oncologist Oncology 02/06/16 documented as of this encounter Additional Source Comments The information contained in this document represents components of the legal health record. It is not the complete legal health record.[facility]
--- OUTSIDE RECORDS SUMMARY | 2025-03-12 10:32 | XMS_ITS | Encounter Summary ---
Author Organization [facility] Address [address] [place] [address] [place] [address] Phone Care Team Providers Care Web Press Jogger Name Role Phone Self-Referred, Patient Unavailable Unavailab le Benito Mcconnell MD, MPH Unavailable [phone] Jeanne Killian MD Primary Care Provider [phone] Puma Kang MD, MPH Unavailable Eric Stevenson MD Unavailable [phone] Geri Parks MD Unavailable [phone] Reason for Referral * MRI/CAT Scan - Closed Specialty Diagnoses / Procedures Referred By Contmigel t Referred To Contact Procedures CT Abdomen Outside (No Interpretation) Benito Mcconnell MD, MPH Phone: tel: fax: mailto:[email or web address] Referral ID Status Reason Start Date Expiration Date Visits Re quested Visits Authorized [id number] Closed 02/18/2017 02/18/2018 1 1 Encounter Details Date Type Department Care Team (Late st Contact Info) Description 02/18/2017 Transcribe Orders [facility] [address] [place] [address] Jordyn Still [address] [place] [address] [email or web address] Social History Tobacco Use Types Packs/Day [...] Description 04/04/2025 1:00 PM EST [facility] [address] [place] [address] Benito Mcconnell MD, MPH [address] [place] [address] [email or web address] documented as of this encounter Results * CT Abdomen Outside (No Interpretation) (02/18/2017 12:00 AM EST) Narrative [facility] - 02/18/2017 10:27 AM EST This study is for PACS storage only and not for interpretation. us Benito Mcconnell MD, MPH IMG OUTSIDE IMAGING W/OUT INTERPRETATION Final Result Performing Organization Address City/State/[facility] Co de Phone Number [facility] documented in this encounter Visit Diagnoses Not on filedocumented in this encounter Care Teams Web Press Jogger Relationship Specialty Start Date End Date Jeanne Killian MD [facility] [place] [address] PCP - General Internal Medicine 01/20/16 Self-Referred, Patient 12/29/15 Benito Mcconnell MD, MPH [address] [place] [address] [email or web address] Primary Oncologist Urology 12/29/15 Puma Kang MD, MPH [address] [place] [address], ASB1- [address] [place] [address] ROSANNA@[email or web address] Radiation Oncology 02/06/16 Eric Stevenson MD [address] [place] [address], [address] [place] [address] [email or web address] Urology 02/06/16 Geri Parks MD [address] [place] [address] [email or web address] Primary Oncologist Oncology 02/06/16 documented as of this encounter Additional Source Comments The information contained in this document represents components of the legal health record. It is not the complete legal health record.[facility]
--- OUTSIDE RECORDS SUMMARY | 2025-03-12 10:32 | XMS_ITS | Encounter Summary ---
Author Organization [facility] Address [address] [place] [address] Phone Care Team Providers Care Biophysics Scientist Name Role Phone Self-Referred, Patient Unavailable Unavailab Benito Morrow MD, MPH Unavailable [phone] Jeanne Killian MD Primary Care Provider [phone] Puma Kang MD, MPH Unavailable [phone] Eric Stevenson MD Unavailable [phone] Geri Parks MD Unavailable [phone] Encounter Details Date Type Department Care Team (Late st Contact Info) Description 09/04/2020 Procedure Pass [facility] [address] [place] [address] Social History Tobacco Use Types Packs/Day Years [...] [facility] [address] [place] [address] Benito Mcconnell MD, MPH [address] [place] [address] [address] [place] [address] [email or web address] documented as of this encounter Visit Diagnoses Not on filedocumented in this encounter Care Teams Biophysics Scientist Relationship Specialty Start Date End Date Jeanne Killian MD [address] [place] [address] PCP - General Internal Medicine 01/20/16 Self-Referred, Patient 12/29/15 Benito Mcconnell MD, MPH [address] [place] [address] [address] [place] [address] [email or web address] Primary Oncologist Urology 12/29/15 Puma Kang MD, MPH [address] [place] [address], [facility] [place] [address] [email or web address] Radiation Oncology 02/06/16 Eric Stevenson MD [address] [place] [address], [address] [address] [email or web address] Urology 02/06/16 Geri Parks MD [address] [place] [address] [email or web address] Primary Oncologist Oncology 02/06/16 documented as of this encounter Additional Source Comments The information contained in this document represents components of the legal health record. It is not the complete legal health record.[facility]
--- OUTSIDE RECORDS SUMMARY | 2025-03-12 10:32 | XMS_ITS | Encounter Summary ---
Author Organization [facility] Address [address] [place] [address] Phone Care Team Providers Care Fly Maker Name Role Phone Self-Referred, Patient Unavailable Unavailab Benito Morrow MD, MPH Unavailable [phone] Jeanne Killian MD Primary Care Provider [phone] Puma Kang MD, MPH Unavailable [phone] Eric Stevenson MD Unavailable [phone] Geri Parks MD Unavailable [phone] Encounter Details Date Type Department Care Team (Late st Contact Info) Description 09/04/2020 Procedure Pass [facility] [address] [place] [address] Social History Tobacco Use Types Packs/Day Years [...] 04/04/2025 1:00 PM EST Office Visit [facility] [address] [place] [address] Benito Mcconnell MD, MPH [address] [place] [address] [address] [place] [address] [email or web address] documented as of this encounter Visit Diagnoses Not on filedocumented in this encounter Care Teams Fly Maker Relationship Specialty Start Date End Date Jeanne Killian MD [address] [place] [address] PCP - General Internal Medicine 01/20/16 Self-Referred, Patient 12/29/15 Benito Mcconnell MD, MPH [address] [place] [address] [address] [place] [address] [email or web address] Primary Oncologist Urology 12/29/15 Puma Kang MD, MPH [address] [place] [address], [facility]- [address] [place] [address] ROSANNA@[email or web address] Radiation Oncology 02/06/16 Eric Stevenson MD [address] [place] [address], [address] [address] [email or web address] Urology 02/06/16 Geri Parks MD [address] [place] [address] [email or web address] Primary Oncologist Oncology 02/06/16 documented as of this encounter Additional Source Comments The information contained in this document represents components of the legal health record. It is not the complete legal health record.[facility]
--- OUTSIDE RECORDS SUMMARY | 2025-03-12 10:32 | XMS_ITS | Encounter Summary ---
Author Organization [facility] Address [address] [place] [address] [place] [address] Phone Care Team Providers Care Oil Dipper Name Role Phone Self-Referred, Patient Unavailable Unavailab Benito Morrow MD, MPH Unavailable [phone] Jeanne Killian MD Primary Care Provider [phone] Puma Kang MD, MPH Unavailable [phone] Eric Stevenson MD Unavailable [phone] Geri Parks MD Unavailable [phone] Encounter Details Date Type Department Care Team (Late st Contact Info) Description 02/18/2017 Procedure Pass [facility] [address] [place] [address] Social History Tobacco Use Types Packs/Day Years [...] 04/04/2025 1:00 PM EST Office Visit [facility] [address] [place] [address] Benito Mcconnell MD, MPH [address] [place] [address] [place] [address] [email or web address] documented as of this encounter Visit Diagnoses Not on filedocumented in this encounter Care Teams Oil Dipper Relationship Specialty Start Date End Date Jeanne Killian MD [facility] [place] [address] PCP - General Internal Medicine 01/20/16 Self-Referred, Patient 12/29/15 Benito Mcconnell MD, MPH [address] [place] [address] [address] [place] [address] [email or web address] Primary Oncologist Urology 12/29/15 Puma Kang MD, MPH [address] [place] [address], [facility]1- [address] [place] [address] ROSANNA@[email or web address] Radiation Oncology 02/06/16 Eric Stevenson MD [address] [place] [address], [address] [address] [email or web address] Urology 02/06/16 Geri Parks MD [address] [place] [address] [email or web address] Primary Oncologist Oncology 02/06/16 documented as of this encounter Additional Source Comments The information contained in this document represents components of the legal health record. It is not the complete legal health record.[facility]
--- OUTSIDE RECORDS SUMMARY | 2025-03-12 10:32 | XMS_ITS | Encounter Summary ---
Author Organization [facility] Address [address] [place] [address] Phone Care Team Providers Care Equipment Mechanic Specialist Name Role Phone Self-Referred, Patient Unavailable Unavailab Benito Morrow MD, MPH Unavailable [phone] Jeanne Killian MD Primary Care Provider [phone] Puma Kang MD, MPH Unavailable [phone] Eric Stevenson MD Unavailable [phone] Geri Parks MD Unavailable [phone] Encounter Details Date Type Department Care Team (Late st Contact Info) Description 06/04/2021 Procedure Pass [facility] [address] [place] [address] Social History Tobacco Use Types Packs/Day Years [...] 1:00 PM EST Office Visit [facility] [address] [place] [address] Benito Mcconnell MD, MPH [address] [place] [address] [address] [place] [address] [email or web address] documented as of this encounter Visit Diagnoses Not on filedocumented in this encounter Care Teams Equipment Mechanic Specialist Relationship Specialty Start Date End Date Jeanne Killian MD [address] [place] [address] PCP - General Internal Medicine 01/20/16 Self-Referred, Patient 12/29/15 Benito Mcconnell MD, MPH [address] [place] [address] [address] [place] [address] [email or web address] Primary Oncologist Urology 12/29/15 Puma Kang MD, MPH [address] [place] [address], [facility]- [address] [place] [address] ROSANNA@[email or web address] Radiation Oncology 02/06/16 Eric Stevenson MD [address] [place] [address], [address] [address] [email or web address] Urology 02/06/16 Geri Parks MD [address] [place] [address] [email or web address] Primary Oncologist Oncology 02/06/16 documented as of this encounter Additional Source Comments The information contained in this document represents components of the legal health record. It is not the complete legal health record.[facility]
--- OUTSIDE RECORDS SUMMARY | 2025-03-12 10:32 | XMS_ITS | Patient Health Record ---
Author [facility] Address [address] [facility] [place] [address] Care Team Providers Care Cleaning Maid Name Role Phone Jeanne Killian MD Primary Care Provider Unavaila ble Black, Tessa Unavailable [phone] Allergies Allergen (clinical drug ingredient) Drug/Non Drug [...] Problem Acquired hammer toe of right foot (3504586098334216 ) Other hammer toe(s) (acquired), right foot (M20.41) Active confirmed Problem Acquired hammer toe of left foot (9832487769521629 ) Other hammer toe(s) (acquired), left foot (M20.42) Active confirmed Problem Acquired hallux valgus (17548897) Hallux valgus (acquired), left foot (M20.12) Active confirmed Problem Acquired hallux valgus (41642022) Hallux valgus (acquired), right foot (M20.11) Active confirmed Problem Localized, primary osteoarthritis of the ankle and/or foot (527557860) Osteoarthritis of right ankle and foot (M19.071) Active confirmed Problem Localized, primary osteoarthritis of the ankle and/or foot (224818346) Osteoarthritis of left ankle and foot (M19.072) Active confirmed Plan Of Treatment No Information Insurance Providers Payer Name Payer Address Payer Phone Subscriber Number Group Number Insured Name Patient Relationship to Insured Coverage Start Date Coverage End Date Medicare National [employer] [address] [place] [address] [id number] Nayeli Fofana Self - patient is the insured [employer] [address] [place] [address] [phone] [id number] Nayeli Fofana Self - patient is the insured Medical (General) History Medical History History ICD Code Arthritis asthma Gall bladder problems High blood pressure Kidney disease Liver disease Osteoporosis Measles Mumps Chicken pox Transfusions Congenitive Hepatic Fibrosis Surgical History Surgery Date(Month/Year) Breast Surgery x2 1978,2020 kidney surgery 2016 gall bladder 2013 hernia
--- OUTSIDE RECORDS SUMMARY | 2025-03-12 10:32 | XMS_ITS | Encounter Summary ---
Author Organization [facility] Address [address] [place] [address] [place] [address] Phone Care Team Providers Care Ocean Freight Agent Name Role Phone Self-Referred, Patient Unavailable Unavailab le Benito Mcconnell MD, MPH Unavailable [phone] Jeanne Killian MD Primary Care Provider [phone] Puma Kang MD, MPH Unavailable [phone] Eric Stevenson MD Unavailable [phone] Geri Parks MD Unavailable [phone] Reason for Referral * MRI/CAT Scan - Closed Specialty Diagnoses / Procedures Referred By Contmigel t Referred To Contact Radiology Diagnoses Malignant neoplasm of lateral wall of urinary bladder Procedures CT 3D Reconstruction Abdomen and Pelvis Benito Mcconnell MD, MPH Phone: tel: fax: mailto:[email or web address] Referral ID Status Reason Start Date Expiration Date Visits Re quested Visits Authorized [id number] Closed 10/12/2018 10/12/2019 1 1 Encounter Details Date Type Department Care Team (Late st Contact Info) Description 10/12/2018 Ancillary Orders [facility] [address] [place] [address] Benito Mcconnell MD, MPH [address] [place] [address] [email or web address] Malignant neoplasm of lateral wall of urinary [...] Description 04/04/2025 1:00 PM EST Office Visit [facility] [address] [place] [address] Benito Mcconnell MD, MPH [address] [place] [address] [email or web address] documented as of this encounter Results * [...] bladder documented in this encounter Care Teams Ocean Freight Agent Relationship Specialty Start Date End Date Jeanne Killian MD [address] [place] [address] PCP - General Internal Medicine 01/20/16 Self-Referred, Patient 12/29/15 Benito Mcconnell MD, MPH [address] [place], [place] [address] [place] [address] [email or web address] Primary Oncologist Urology 12/29/15 Puma Kang MD, MPH [address] [place] [address], [facility] [place] [address] [email or web address] Radiation Oncology 02/06/16 Eric Stevenson MD [address] [place] [address], [address] [place] [address] [email or web address] Urology 02/06/16 Geri Parks MD [address] [place] [address] [email or web address] Primary Oncologist Oncology 02/06/16 documented as of this encounter Additional Source Comments The information contained in this document represents components of the legal health record. It is not the complete legal health record.[facility]
--- OUTSIDE RECORDS SUMMARY | 2025-03-12 10:32 | XMS_ITS | Encounter Summary ---
Author Organization [facility] Address [address] [place] [address] Phone Care Team Providers Care Spike Machine Operator Name Role Phone Self-Referred, Patient Unavailable Unavailab Benito Morrow MD, MPH Unavailable [phone] Jeanne Killian MD Primary Care Provider [phone] Puma Kang MD, MPH Unavailable [phone] Eric Stevenson MD Unavailable [phone] Geri Parks MD Unavailable [phone] Encounter Details Date Type Department Care Team (Late st Contact Info) Description 06/04/2021 Procedure Pass [facility] 20 [place] [address] Social History Tobacco Use Types Packs/Day Years [...] Description 04/04/2025 1:00 PM EST Office Visit [facility] [address] [place] [address] Benito Mcconnell MD, MPH [address] [place] [address] [address] [place] [address] [email or web address] documented as of this encounter Visit Diagnoses Not on filedocumented in this encounter Care Teams Spike Machine Operator Relationship Specialty Start Date End Date Jeanne Killian MD [address] [place] [address] PCP - General Internal Medicine 01/20/16 Self-Referred, Patient 12/29/15 Benito Mcconnell MD, MPH [address] [place] [address] [address] [place] [address] [email or web address] Primary Oncologist Urology 12/29/15 Puma Kang MD, MPH [address] [place] [address], [facility]- [address] [place] [address] ROSANNA@[facility] Radiation Oncology 02/06/16 Eric Stevenson MD [address] [place] [address], [address] [address] [email or web address] Urology 02/06/16 Geri Parks MD [address] [place] [address] [email or web address] Primary Oncologist Oncology 02/06/16 documented as of this encounter Additional Source Comments The information contained in this document represents components of the legal health record. It is not the complete legal health record.[facility]
--- OUTSIDE RECORDS SUMMARY | 2025-03-12 10:32 | XMS_ITS | Encounter Summary ---
Author Organization [facility] Address [address] [place] [address] Care Team Providers Care Vice President Of Marketing Name Role Phone Enedelia Rdz MD Primary Care Provider + Encounter Details Date Type Department Care Team (Late st Contact Info) Description 06/25/2024 Lab Requisition [facility] - Main Lab [address] [facility] [place] [address] Enedelia Rdz MD [address] [address] Chronic kidney disease, unspecified; Gastro-esophageal [...] MD LAB BLOOD ORDERABLES Fin al Result [facility] [address] [place] [address], * (ABNORMAL) Complete blood count (06/25/2024 7:57 AM EDT) WBC 11.3(H) 4.8 - 10.8 K/mcL LAB HEMETOLOGY METHOD 06/25/2024 12:56 PM EDT [facility] RBC 3.20(L) 3.80 - 4.80 M/mcL LAB HEMETOLOGY METHOD 06/25/2024 12:56 PM EDT [facility] Hemoglobin 9.9(L) 11.5 - 16.0 g/dL LAB HEMETOLOGY METHOD 06/25/2024 12:56 PM EDT [facility] Hematocrit 30.7(L) 35.0 - 47.0 % LAB HEMETOLOGY METHOD 06/25/2024 12:56 PM EDT [facility] MCV 95.0 79.0 - 98.0 FL LAB HEMETOLOGY METHOD 06/25/2024 12:56 PM EDT [facility] MCH 30.7 27.0 - 32.0 pcg LAB HEMETOLOGY METHOD 06/25/2024 12:56 PM EDT [facility] MCHC 32.2 32.0 - 37.0 g/dL LAB HEMETOLOGY METHOD 06/25/2024 12:56 PM EDT [facility] RDW 14.1 11.0 - 15.0 % LAB HEMETOLOGY METHOD 06/25/2024 12:56 PM EDT [facility] Platelets 209 130 - 400 K/mcL LAB HEMETOLOGY METHOD 06/25/2024 12:56 PM EDT [facility] MPV 10.4 7.0 - 11.0 FL LAB HEMETOLOGY METHOD 06/25/2024 12:56 PM EDT [facility] NRBC 0.0 <1.0 % LAB HEMETOLOGY METHOD 06/25/2024 12:56 PM EDT [facility] NRBC Absolute 0.00 <0.10 K/mcL LAB HEMETOLOGY METHOD 06/25/2024 12:56 PM EDT [facility] Blood Venous blood specimen / Unknown Venipuncture / Unknown 06/25/2024 7:57 AM EDT 06/25/2024 11:58 AM EDT us Enedelia Rdz MD LAB BLOOD ORDERABLES Fin al Result [facility] [address] [place] [address], documented in this encounter Visit Diagnoses Diagnosis Chronic kidney disease, unspecified Gastro-esophageal reflux disease without esophagitis Essential (primary) hypertension Unspecified essential hypertension Thrombocytopenia, unspecified (CMS/HCC V24) Thrombocytopenia, unspecified documented in this encounter Care Teams Vice President Of Marketing Relationship Specialty Start Date End Date Enedelia Rdz MD PCP - General Family Medicine 06/22/24 documented as of this encounter
[2025-03-12 11:11] LABS: Anion Gap 11 (12-20); Blood Urea Nitrogen 18 mg/dL (9-16); Calcium 8.9 mg/dL (8.4-10.2); Carbon Dioxide 25 mmol/L (22-29); Chloride 110 mmol/L (96-108); Estimated Glomerular Filt Rate 40; Potassium 4.8 mmol/L (3.3-5.1); Sodium 141 mmol/L (135-145)
[2025-03-12 11:38] LABS: Folate 13.7 ng/mL (> or = 4.0); Vitamin B12 440 pg/mL (200-900)
== END 2025-03-12 08:42 ==
LOC: HO.HMGCLDS 08:41
PROVIDERS: PCP Internal Medicine; Visit Provider Internal Medicine
DX: E53.8 Deficiency of other specified B group vitamins (principal); I10 Essential (primary) hypertension; Z13.21 Encounter for screening for nutritional disorder
CPT/HCPCS: 36415; 80048; 82306; 82607; 82746; 84425